=== PATIENT | male | born 1985 | race Caucasian/White ===

== ENCOUNTER 2020-11-17 20:21 | Inpatient (IN) | payer SELFPAY ==
[2020-11-17 20:26] VITALS: BP 134/104; PULSE 98; RESP 18; TEMP 36.7; O2SAT 98; BMI 40.6
[2020-11-17 20:58] LABS: Basophils # 0.1 10^3/uL (0.0-0.1); Basophils % 0.7 %; Eosinophils # 0.3 10^3/uL (0.0-0.8); Eosinophils % 3.5 %; Hematocrit 42.1 % (42.0-52.0); Hemoglobin 14.5 g/dL (11.7-16.6); Lymphocytes # 2.4 10^3/uL (0.8-4.8); Lymphocytes % 30.2 %; Mean Corpuscular HGB Conc 34.4 g/dL (30.0-36.0); Mean Corpuscular Hemoglobin 29.4 pg (28.0-34.0); Mean Corpuscular Volume 85.2 fL (80-94); Mean Platelet Volume 9.1 fL (7.4-10.4); Monocytes # 0.6 10^3/uL (0.2-0.9); Monocytes % 7.1 %; Neutrophils # 4.67 10^3/uL (1.8-7.7); Neutrophils % 58.3 %; Nucleated Red Blood Cells % 0 %; Platelet Count 211 10^3/cmm (130-400); Red Blood Count 4.94 10^6/uL (4.1-5.3)
--- NOTE | 2020-11-17 21:04 | W.ED.PSYCH ---
HPI - Psych General: Chief Complaint: Psychiatric Symptoms Stated Complaint: SI Time Seen by Provider: 11/17/20 20:26 History of Present Illness: HPI Narrative: 35-year-old male presents with suicidal ideation. He states that he was just released from the skilled nursing not long ago. He has been depressed. He started having suicidal thoughts today. His plan was to jump off a bridge. He states that he had 1 beer yesterday, otherwise no substance abuse at all. He is not been ill recently. MD complaint: suicidal ideation and feels depressed Onset (ago): day(s) Duration: constant History of same: Yes Relieving factors: none Exacerbating factors: none Associated psychiatric symptoms: depression and suicidal ideation Associated symptoms: Reports depression and suicidal ideation; Deny homicidal ideation If self harm: admits thoughts of self harm and has plan Review of Systems Const: Denies: fever(s) or chills Eyes: Denies: change in vision ENMT: Denies: odynophagia or sinus pain Card: Denies: chest pain, palpitations or irregular heart rhythm Resp: Denies: dyspnea, productive cough, non-productive cough or wheezing GI: Denies: abdominal pain, nausea or vomiting : Denies: difficulty urinating or hematuria Musc: Denies: neck pain, joint redness or joint warmth Skin/Breast: Denies: rash Neuro: Denies: headache(s), dizziness or vertigo Psych: Reports: depression and suicidal ideation; Denies: homicidal ideation Physical Exam Const: GENERAL APPEARANCE: well developed ORIENTATION/CONSCIOUSNESS: Yes oriented to person, Yes oriented to place and Yes oriented to time HENMT: COMMON NORMALS: normocephalic, external ears normal and Normal external nose present HEAD & SCALP: normocephalic FACE & SINUS: normal facial exam NOSE: Normal external nose present and No nasal discharge present EXTERNAL EAR: Yes external ears normal Eye: COMMON NORMALS: Equal, round and reactive pupils present, EOMs intact bilaterally and conjunctivae normal EYELID: eyelids normal CONJUNCTIVA: Yes conjunctivae normal PUPIL: Yes Equal, round and reactive pupils present Neck/C-Spine: GENERAL: No tracheal deviation Chest: COMMONS NORMALS: normal inspection of the chest CHEST: No tenderness Resp: COMMON NORMALS: clear to auscultation bilaterally EFFORT & INSPECTION: No tachypneic, No respiratory distress, No retractions, No uses accessory muscles and No tracheal deviation AUSCULTATION: clear to auscultation bilaterally, no rhonchi, no wheezes and lung sounds not diminished Cardio: COMMON NORMALS: regular rate and regular rhythm RATE: regular rate RHYTHM: regular rhythm HEART SOUNDS: no murmurs PERIPHERAL PULSES: radial pulses present GI: INSPECTION: No abdominal distension AUSCULTATION: No Hyperactive bowel sounds present and No Hypoactive bowel sounds present PALPATION: No Guarding due to palpation present (GI) and No Rigid due to palpation PERCUSSION: no dullness to percussion and no tympanic to percussion Neuro: SENSORIUM/ORIENTATION: Yes oriented to person, Yes oriented to place and Yes oriented to time Psych: COMMON NORMALS: speech normal APPEARANCE: Yes grossly normal ATTITUDE: Yes calm and Yes Withdrawn affect present ACTIVITY/MOTOR BEHAVIOR: Yes psychomotor slowing SPEECH: Yes normal speech MOOD & AFFECT: Yes depressed mood THOUGHT PROCESS: No confused, not confabulating, no flight of ideas and No Word salad present (speech) THOUGHT CONTENT: Yes Suicidality present ATTENTION/CONCENTRATION: Yes attention grossly intact and Yes concentration grossly intact MEMORY/COGNITION: Yes memory grossly intact and Yes cognition grossly intact INSIGHT: Fair insight present (Psych) JUDGEMENT: Fair judgement present (Psych) Skin: COMMON NORMALS: no rashes or lesions noted GENERAL SKIN EXAM: no rashes or lesions noted MDM - Psych MDM Narrative: Medical decision making narrative: Medically stable. Psychiatry agrees to admission. Patient is willing to come in. Lab Data: Labs: Lab Results 11/17/20 11/17/20 11/17/20 Range/Units 20:50 20:50 21:00 WBC 8.0 (4.0-10.0) 10^3/ uL RBC 4.94 (4.1-5.3) 10^6/u L Hgb 14.5 (11.7-16.6) g/dL Hct 42.1 (42.0-52.0) % MCV 85.2 (80-94) fL MCH 29.4 (28.0-34.0) pg MCHC 34.4 (30.0-36.0) g/dL RDW 12.0 L (12.1-15.1) % Plt Count 211 (130-400) 10^3/c mm MPV 9.1 (7.4-10.4) fL Neut % (Auto) 58.3 % Lymph % (Auto) 30.2 % [place] % (Auto) 7.1 % Eos % (Auto) 3.5 % Baso % (Auto) 0.7 % Neut # (Auto) 4.67 (1.8-7.7) 10^3/u L Lymph # (Auto) 2.4 (0.8-4.8) 10^3/u L [place] # (Auto) 0.6 (0.2-0.9) 10^3/u L Eos # (Auto) 0.3 (0.0-0.8) 10^3/u L Baso # (Auto) 0.1 (0.0-0.1) 10^3/u L Nucleated RBC % (a uto) 0 % Nucleated RBCs # 0.0 /100WBC Sodium 138 (136-145) mmol/L Potassium 4.2 (3.5-5.1) mmol/L Chloride 105 (98-107) mmol/L Carbon Dioxide 23 (22-29) mmol/L Anion Gap 14.2 (5-19) BUN 15 (6-20) mg/dL Creatinine 0.9 (0.7-1.2) mg/dL GFR Calculation 95.5 (90-130) mL/min Glucose 106 (65-115) mg/dL Calculated Osmolal ity 287 (285-295) mOsm/k g Calcium 9.2 (8.5-10.5) mg/dL Total Bilirubin 0.2 (0.15-1.2) mg/dL AST 20 (0-40) U/L ALT 28 (0-41) U/L Alkaline Phosphata se 59 (40-130) IU/L Total Protein 7.3 (6.6-8.7) g/dL Albumin 4.3 (3.5-5.2) g/dL Globulin 3.0 (1.3-4.6) g/dL Urine Color Yellow (Yellow) Urine Appearance Clear (CLEAR) Urine pH 7 (5-7) Ur Specific Gravit y 1.015 (1.005-1.030) Urine Protein Neg (Negative) Urine Glucose (UA) Norm (Normal) Urine Ketones Negative (Negative) Urine Blood Neg (Negative) Urine Nitrate Negative (Negative) Urine Bilirubin Neg (Negative) Urine Urobilinogen Norm (Negative) mg/dL Ur Leukocyte Sherry ase Negative (Negative) Salicylates < 0.3 L (3-10) mg/dL Urine Opiates Scre en (Negative) ng/mL Acetaminophen < 5.0 L (10-30) ug/mL Ur Barbiturates Sc reen (Negative) ng/mL Ur Phencyclidine S crn (Negative) ng/mL Ur Amphetamines Sc reen (Negative) ng/mL U Benzodiazepines Scrn (Negative) ng/mL Urine Cocaine Scre en (Negative) ng/mL U Marijuana (THC) Screen (Negative) ng/mL Ethyl Alcohol < 10 (0-10) mg/dL 11/17/20 Range/Units 21:00 WBC (4.0-10.0) 10^3/ uL RBC (4.1-5.3) 10^6/u L Hgb (11.7-16.6) g/dL Hct (42.0-52.0) % MCV (80-94) fL MCH (28.0-34.0) pg MCHC (30.0-36.0) g/dL RDW (12.1-15.1) % Plt Count (130-400) 10^3/c mm MPV (7.4-10.4) fL Neut % (Auto) % Lymph % (Auto) % [place] % (Auto) % Eos % (Auto) % Baso % (Auto) % Neut # (Auto) (1.8-7.7) 10^3/u L Lymph # (Auto) (0.8-4.8) 10^3/u L [place] # (Auto) (0.2-0.9) 10^3/u L Eos # (Auto) (0.0-0.8) 10^3/u L Baso # (Auto) (0.0-0.1) 10^3/u L Nucleated RBC % (a uto) % Nucleated RBCs # /100WBC Sodium (136-145) mmol/L Potassium (3.5-5.1) mmol/L Chloride (98-107) mmol/L Carbon Dioxide (22-29) mmol/L Anion Gap (5-19) BUN (6-20) mg/dL Creatinine (0.7-1.2) mg/dL GFR Calculation (90-130) mL/min Glucose (65-115) mg/dL Calculated Osmolal ity (285-295) mOsm/k g Calcium (8.5-10.5) mg/dL Total Bilirubin (0.15-1.2) mg/dL AST (0-40) U/L ALT (0-41) U/L Alkaline Phosphata se (40-130) IU/L Total Protein (6.6-8.7) g/dL Albumin (3.5-5.2) g/dL Globulin (1.3-4.6) g/dL Urine Color (Yellow) Urine Appearance (CLEAR) Urine pH (5-7) Ur Specific Gravit y (1.005-1.030) Urine Protein (Negative) Urine Glucose (UA) (Normal) Urine Ketones (Negative) Urine Blood (Negative) Urine Nitrate (Negative) Urine Bilirubin (Negative) Urine Urobilinogen (Negative) mg/dL Ur Leukocyte Sherry ase (Negative) Salicylates (3-10) mg/dL Urine Opiates Scre en Negative (Negative) ng/mL Acetaminophen (10-30) ug/mL Ur Barbiturates Sc reen Negative (Negative) ng/mL Ur Phencyclidine S crn Negative (Negative) ng/mL Ur Amphetamines Sc reen Negative (Negative) ng/mL U Benzodiazepines Scrn Negative (Negative) ng/mL Urine Cocaine Scre en Negative (Negative) ng/mL U Marijuana (THC) Screen Negative (Negative) ng/mL Ethyl Alcohol (0-10) mg/dL Discharge Plan Discharge Patient Disposition: Admitted As Inpatient Admit Provider: Nasir Dexter Clinical Impression: Suicidal ideation Condition: Stable Coding Level of Care Code ED Invasive Physician for Aby 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
[2020-11-17 21:05] LABS: Add Urine Microscopic? NO
[2020-11-17 21:13] LABS: Urine Appearance Clear (CLEAR); Urine Color Yellow (Yellow); pH Urine 7 (5-7)
[2020-11-17 21:14] LABS: Bilirubin Urine Neg (Negative); Blood Urine Neg (Negative); Glucose Urine UA Norm (Normal); Ketones Urine Negative (Negative); Leukocyte Esterase Urine Negative (Negative); Nitrate Urine Negative (Negative); Protein Urine Neg (Negative); Specific Gravity, Urine 1.015 (1.005-1.030); Urobilinogen Urine Norm (Negative)
[2020-11-17 21:16] LABS: Amphetamines Screen Urine Negative (Negative); Barbiturates Screen Urine Negative (Negative); Benzodiazepines Screen Urine Negative (Negative); Cocaine Screen Urine Negative (Negative); Opiate Screen Urine Negative (Negative); PCP Screen Urine Negative (Negative); THC Screen Urine Negative (Negative)
[2020-11-17 21:19] LABS: Alanine Aminotransferase 28 U/L (0-41); Albumin Level 4.3 g/dL (3.5-5.2); Alkaline Phosphatase 59 IU/L (40-130); Anion Gap 14.2 (5-19); Aspartate Amino Transferase 20 U/L (0-40); Blood Urea Nitrogen 15 mg/dL (6-20); Calcium 9.2 mg/dL (8.5-10.5); Carbon Dioxide 23 mmol/L (22-29); Chloride 105 mmol/L (98-107); Glomerular Filtration Rate 95.5 mL/min (90-130); Glucose 106 mg/dL (65-115); Osmolality Calculated 287 mOsm/kg (285-295); Potassium 4.2 mmol/L (3.5-5.1); Sodium 138 mmol/L (136-145); Total Bilirubin 0.2 mg/dL (0.15-1.2); Total Protein 7.3 g/dL (6.6-8.7)
[2020-11-17 21:34] LABS: Acetaminophen < 5.0 ug/mL (10-30); Salicylate < 0.3 mg/dL (3-10)
[2020-11-17 21:35] LABS: Alcohol Level < 10 mg/dL (0-10)
--- NOTE | 2020-11-17 22:34 | PC.NURSE ---
1:1 sitter at bedside.
[2020-11-17 23:12] VITALS: BP 143/92; PULSE 89; RESP 17; TEMP 36.8; O2SAT 98
[2020-11-17 23:53] VITALS: BP 158/121; PULSE 99; RESP 21; TEMP 36.6; O2SAT 96
[2020-11-18] MEDS: hyDROXYzine 25 mg Capsule 50 MG PO ×2 (00:16→21:19)
[2020-11-18] MEDS: trazodone 50 mg Tablet PO (00:16)
[2020-11-18 06:00] VITALS: BP 119/73; PULSE 81; RESP 16; TEMP 36.7; O2SAT 95
[2020-11-18 06:50] LABS: Glucose Point of Care 100 mg/dL (70-110)
[2020-11-18] MEDS: hydroCHLOROthiazide 25 mg Tablet 12.5 MG PO (08:04)
--- NOTE | 2020-11-18 08:10 | PC.NURSE ---
INFLUENZA VACCINE 1 SINGLE DOSE, 0.5 ML GIVEN IM IN RIGHT DELTOID. PT EDUCATED ON MED GIVEN & VERBALIZED UNDERSTANDING. WILL CONT TO MONITOR INJECTION SITE FOR ANY REDNESS, SWELLING OR IRRITATION. LOT [id number] EXP 05/28/21
[2020-11-18 14:00] VITALS: BP 141/98; PULSE 91; RESP 20; TEMP 36.6; O2SAT 96
--- NOTE | 2020-11-18 16:43 | PM.NHP ---
Providers/Chief Complaint Admitting Physician: Nasir Dexter MD Chief Complaint: SI HPI NPU History of Present Illness Wicho Lugo is a 35 year old male who presented to the emergency department with the following report: Chief Complaint: Psychiatric Symptoms Stated Complaint: SI Time Seen by Provider: 11/17/20 20:26 History of Present Illness: HPI Narrative: 35-year-old male presents with suicidal ideation. He states that [facility] ago. He has been depressed. He started having suicidal thoughts today. His plan was to jump off a bridge. He states that he had 1 beer yesterday, otherwise no substance abuse at all. He is not been ill recently. MD complaint: suicidal ideation and feels depressed Onset (ago): day(s) Duration: constant History of same: Yes Relieving factors: none Exacerbating factors: none Associated psychiatric symptoms: depression and suicidal ideation Associated symptoms: Reports depression and suicidal ideation; Deny homicidal ideation If self harm: admits thoughts of self harm and has plan. He was admitted to the neuropsychiatric unit for definitive treatment of those issues. He reports that he just got out of correction earlier this month and then he returned to nothing remaining in his life and all of his supports being gone. He acknowledges that he is a risk offender. And reports that that issue has become a problematic theme in his desire to start over. 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 However he reports that nobody wants to hire somebody that has his history. He reports that in correction he was in therapy and was taking medication. It is unclear whether he is resume the therapy part as of yet. He does however report significant suicidal thinking as he feels like there is almost no reason to go on. He reports that he has significant losses both literally with one child earlier and figuratively and that he is not able to see other children. We discussed the risk benefits and alternatives of initiating an antidepressant. And he understood and agreed to proceed as is documented in this note. He had wanted me to review his chart as the only #medications he had in the past. He reports some of been helpful and others have not and he does not want to waste this time. He agreed to consider starting Entresto or other medication in the morning after that review. He is currently taking prazosin and trazodone and those medications have been continued. We reviewed his 2016 [facility] [place] [place] inpatient evaluation and an excerpt is included for context. He reports that not much is changed other than the going to [facility] and now being out. Per his 2016 [facility] inpatient psychiatric eval: DATE OF SERVICE: 07/07/2016 DATE OF DICTATION: 07/08/2016 CHIEF COMPLAINT: Suicidal thoughts. HISTORY OF PRESENT ILLNESS: The patient reported that he has been feeling suicidal with a plan to drive a car at 100 per hour into a brick wall or off a bridge. He has been increasingly stressed lately. He has been feeling suicidal for the past week due to several situational stressors, including losing custody of his child and his splitting-up 2ith his . He has been for 7 years. The patient reported that he has lost several family members through days. He has been increasingly distressed of as a result. The patient reported that he has a diagnosis of posttraumatic stress disorder. He has mentioned a dysfunctional childhood, growing up in foster care. The patient reported that he has been seeing Larissa Bearden until a year ago. He has been noncompliant to his followups. He has seen Larissa Bearden in May 2015. He was treated for diagnosis of major depressive disorder, severe, recurrent, post-traumatic stress disorder and mild intellectual disability. He has been treated with Wellbutrin, which he has been taking up to 450 milligrams daily. The patient mentioned the Wellbutrin was not helpful. He has significant hypertension, for which he has been also taking Catapres. The patient denied any auditory or visual hallucination. He has mentioned that he has been increasingly angry with significant mood lability. ALLERGIES: Amoxicillin/clavulanic acid/Augmentin. REVIEW OF SYSTEMS: Negative, except what was described in the History Of Present Illness. PAST PSYCHIATRIC HISTORY: Previous hospitalization denied, but has been seen at the Outpatient Services in the past. He was tried on antidepressant medications for worsening depression. Documents reviewed indicate that he had attempted suicide years ago using a firearm in 1997. SOCIAL HISTORY: He grew up in foster care. Dysfunctional childhood. The patient mentioned that he is but currently he is split up with his . She told me to pack up my bag and leave . The patient reported that he has 3 children. He is on [employer] income. The patient has graduated high school and has been attending college. He has a year of college. The patient is currently homeless. SUBSTANCE ABUSE HISTORY: He reported smoking marijuana here and there. He denied any other illicit substance use. FAMILY HISTORY: He reported that his mother has significant substance use. He denied a family history of psychiatric illness. PAST MEDICAL HISTORY: Hypertension. Bronchitis. Meds NPU Home Medications Medication Instructions Recorded Confirmed Last Taken Type hydrochlorothiazide 12.5 mg PO DAILY 11/18/20 11/18/20 Unknown History hydroxyzine pamoate 50 mg PO BEDTIME 11/18/20 11/18/20 Unknown History prazosin 2 mg PO BEDTIME 11/18/20 11/18/20 Unknown History trazodone 100 mg PO BEDTIME 11/18/20 11/18/20 Unknown History Allergies Allergy/AdvReac Type Severity Reaction Status Date / Time amoxicillin Allergy ALGY-Hives Verified 11/17/20 20:25 Mental Status Exam MSE Comments: This is an obese male with adequate grooming and eye contact in hospital scrubs. No abnormal movements except for psychomotor retardation. Cooperative with exam in mild distress. Speech was normal rate and volume. Mood described as depressed, affect congruent. Thought process organized. Thought content: Patient denied any suicidal or homicidal ideation, there were no delusions reported or noted, he denied any auditory or visual hallucinations. Attention and concentration were intact and memory appeared reliable but none were formally tested. He is alert and oriented x3. Insight and judgment are fair, impulse control is limited. Vitals/I&O/Wt Last Vital Signs Temp 97.8 F 11/18/20 14:00 Pulse 91 11/18/20 14:00 Resp 20 H 11/18/20 14:00 BP 141/98 11/18/20 14:00 Pulse Ox 96 11/18/20 14:00 Weight last 48 hrs Weight 147.418 kg Data NPU : 11/17/20 20:50 11/17/20 20:50 A&P Assessment and plan (1) Depression: Status: Acute (2) Suicidal ideation: Status: Acute (3) PTSD (post-traumatic stress disorder): Status: Acute Additional A&P Information This is a 35-year-old white male with a long history of trauma and depression with recent suicidal ideation as he recently got out of correction and is dealing with a lot of real psychosocial challenges that do not necessarily have easy solutions. 1. Continue current medication. We will explore starting an antidepressant in the morning. After chart review. 2. Continue every 15 minute checks for safety. 3. Encourage individual, group and milieu therapy. 4. Work with treatment team to determine what kind of resources exist for someone in his situation. There is a reasonable likelihood that we will need to resources a larger city in the area to find resources to assist him. Involuntary Hold Information 96 Hour Hold: 96 Hour Involuntary Admission: No Attestations NPU Medical Necessity Statement*: Inpatient hospitalization is medically necessary and the clinically appropriate intervention at this time. We will monitor medications and make changes as indicated. He will be in the hospital for over 2 midnights. Likely length of stay 4 to 6 days. Coding Level of Care Code Acute Supply Chain Development Manager for Aby Dixon Diagnoses Depression F32.9 Suicidal ideation R45.851 PTSD (post-traumatic stress disorder) F43.10
[2020-11-18] MEDS: prazosin 1 mg Capsule 2 MG PO (21:19)
[2020-11-18 21:20] VITALS: BP 126/89; PULSE 95; RESP 18; TEMP 36.5; O2SAT 97
[2020-11-18] MEDS: trazodone 100 mg Tablet PO (21:20)
[2020-11-19 06:00] VITALS: BP 113/82; PULSE 105; RESP 18; TEMP 36.7; O2SAT 97
[2020-11-19] MEDS: hydroCHLOROthiazide 25 mg Tablet 12.5 MG PO (08:33)
[2020-11-19 14:00] VITALS: BP 119/78; PULSE 18; RESP 119; TEMP 36.7; O2SAT 96
--- NOTE | 2020-11-19 18:45 | P.PN_ITS ---
Subjective NPU Subjective: Interval history: Koyd presents today reporting that he is feeling okay. Just had a lengthy discussion with the therapist and reports that his options are still few. He started mapping out worst-case scenarios for discharge out of 10 on the currently he is expressing lethality and lack of optimism that there is answer to his circumstances. He has reached out to a couple individuals in entities and is hoping someone will give him a chance. He is eating okay but struggling with his sleep. Mental Status Exam 2 MSE Comments: This is an obese male with adequate grooming and eye contact in hospital scrubs. No abnormal movements except for psychomotor retardation. Cooperative with exam in mild distress. Speech was normal rate and volume. Mood described as depressed, affect congruent. Thought process organized. Thought content: Patient denied any homicidal ideation, but did endorse suicidal ideation and a passive wish, there were no delusions reported or noted, he denied any auditory or visual hallucinations. Attention and concentration were intact and memory appeared reliable but none were formally tested. He is alert and oriented x3. Insight and judgment are fair, impulse control is limited. Vitals/I&O/Wt Last Vital Signs Temp 97.6 F 11/19/20 22:00 Pulse 18 L 11/19/20 22:00 Resp 110 H 11/19/20 22:00 BP 119/77 11/19/20 22:00 Pulse Ox 94 11/19/20 22:00 Data NPU : 11/17/20 20:50 11/17/20 20:50 A&P Additional A&P Information (1) Depression: (2) Suicidal ideation: (3) PTSD (post-traumatic stress disorder): Additional A&P Information This is a 35-year-old white male with a long history of trauma and depression with recent suicidal ideation as he recently got out of shelter and is dealing with a lot of real psychosocial challenges that do not necessarily have easy solutions. 1. Continue current medication. Increase trazodone to 200 mg p.o. nightly. We will start Prozac 20 mg p.o. every morning in the morning. 2. Continue every 15 minute checks for safety. 3. Encourage individual, group and milieu therapy. 4. Work with treatment team to determine what kind of resources exist for someone in his situation. There is a reasonable likelihood that we will need to resources a larger city in the area to find resources to assist him. Involuntary Hold Information 96 Hour Hold: 96 Hour Involuntary Admission: No Attestations NPU Medical Necessity Statement*: Inpatient hospitalization is medically necessary and the clinically appropriate intervention at this time. We will monitor medications and make changes as indicated. Likely length of stay 3-5 days. Coding Level of Care Code Acute Inspection Machine Tender for Aby Dixon
[2020-11-19] MEDS: prazosin 1 mg Capsule 2 MG PO (20:42)
[2020-11-19] MEDS: hyDROXYzine 25 mg Capsule 50 MG PO (20:42)
[2020-11-19] MEDS: trazodone 100 mg Tablet 200 MG PO (20:43)
[2020-11-19 22:00] VITALS: BP 119/77; PULSE 18; RESP 110; TEMP 36.4; O2SAT 94
[2020-11-19] MEDS: trazodone 50 mg Tablet PO (23:35)
--- NOTE | 2020-11-19 23:36 | PC.NURSE ---
Addendum entered by Agatha Haile RN 11/20/20 00:15: Pt is still unable to sleep. He has received 200mg PO trazodone scheduled, and a additional 50mg PO Trazodone. Neither have induced sleep Original Note: trazodone 50mg PO given for inability to sleep. Will continue to monitor
--- NOTE | 2020-11-20 02:26 | PC.NURSE ---
PM Assessment pt reports feeling depressed as he is going thru a divorce at this time. Trazodone was increased this evening to 200mg po. He still has a hard time sleeping. He was given additional 50mg PO Trazodone and still had a hard time going to sleep. Pt v/s are normal. pt denies pain, denies si/hi. denies ah/vh. Pt is cooperative with staff.
[2020-11-20 06:00] VITALS: BP 110/77; PULSE 94; RESP 18; TEMP 36.2; O2SAT 95
[2020-11-20] MEDS: hydroCHLOROthiazide 25 mg Tablet 12.5 MG PO (07:52)
[2020-11-20 12:37] VITALS: BP 116/77; PULSE 97; RESP 18; TEMP 36.4; O2SAT 94
--- NOTE | 2020-11-20 18:43 | P.PN_ITS ---
Subjective NPU Subjective: Interval history: Kody presents today reporting that he is doing okay. He still struggling with sleep and struggling with depression. He is very frustrated about his situation and how there does not seem to be a reasonable solution. He agreed that he would continue looking for alternatives. We discussed the risk benefits and alternatives of starting doxepin tonight for sleep and he endorsed an openness to initiate Prozac in the morning. Mental Status Exam MSE Comments: This is an obese male with adequate grooming and eye contact in hospital scrubs. No abnormal movements except for psychomotor retardation. Cooperative with exam in mild distress. Speech was normal rate and volume. Mood described as depressed, affect congruent. Thought process organized. Th ought content: Patient denied any homicidal ideation, but did endorse suicidal ideation and a passive wish, there were no delusions reported or noted, he denied any auditory or visual hallucinations. Attention and concentration were intact and memory appeared reliable but none were formally tested. He is alert and oriented x3. Insight and judgment are fair, impulse control is limited. Vitals/I&O/Wt Last Vital Signs Temp 97.6 F 11/20/20 21:04 Pulse 97 11/20/20 21:04 Resp 18 11/20/20 21:04 BP 115/77 11/20/20 21:04 Pulse Ox 97 11/20/20 21:04 Data NPU : 11/17/20 20:50 11/17/20 20:50 A&P Additional A&P Information (1) Depression: (2) Suicidal ideation: (3) PTSD (post-traumatic stress disorder): Additional A&P Information This is a 35-year-old white male with a long history of trauma and depression with recent suicidal ideation as he recently got [facility] of [facility] and is dealing with a lot of real psychosocial challenges that do not necessarily have easy solutions. 1. Continue current medication. Doxepin 10 mg p.o. nightly will be added to the trazodone tonight. He finally has agreed to start the antidepressant in the morning. 2. Continue every 15 minute checks for safety. 3. Encourage individual, group and milieu therapy. 4. Work with treatment team to determine what kind of resources exist for darshan eone in his situation. There is a reasonable likelihood that we will need to resources a larger city in the area to find resources to assist him. Involuntary Hold Information 96 Hour Hold: 96 Hour Involuntary Admission: No Attestations NPU Medical Necessity Statement*: Inpatient hospitalization is medically necessary and the clinically appropriate intervention at this time. We will monitor medications and make changes as indicated. Likely length of stay 2-4 days. Coding Level of Care Code Acute Tool And Fixture Repairer for Aby Dixon
[2020-11-20 21:04] VITALS: BP 115/77; PULSE 97; RESP 18; TEMP 36.4; O2SAT 97
[2020-11-20] MEDS: hyDROXYzine 25 mg Capsule 50 MG PO (21:28)
[2020-11-20] MEDS: prazosin 1 mg Capsule 2 MG PO (21:28)
[2020-11-20] MEDS: trazodone 100 mg Tablet 200 MG PO (21:28)
[2020-11-20] MEDS: doxepin 10 mg Capsule PO (21:28)
[2020-11-21 05:57] VITALS: BP 108/69; PULSE 104; RESP 18; TEMP 36.4; O2SAT 95
--- NOTE | 2020-11-21 08:08 | PC.NURSE ---
REFUSED SCHEDULED [facility] THIS MORNING, PT STATED HE JUST WANTS TO GO
[2020-11-21 13:06] VITALS: BP 107/72; PULSE 94; RESP 18; TEMP 36.3; O2SAT 95
--- NOTE | 2020-11-21 18:46 | P.PN_ITS ---
Subjective NPU Subjective: Interval history: Wicho presents today reporting that his sleep has been horrible still after the addition of the doxepin. No history of taking Seroquel but we discussed the risks, benefits and alternatives of a trial of Seroquel and he understood and agreed to proceed as is documented in this note. He continues to be somewhat frustrated because there do not seem to be any options to be able and he is reporting going to a larger city as a nonstarter for the conversation. We discussed the possibility of some of the calls he is making panning out but discussed the tentative plan beginning of the week. Mental Status Exam MSE Comments: This is an obese male with adequate grooming and eye contact in hospital scrubs. No abnormal movements except for psychomotor retardation. Cooperative with exam in mild distress. Speech was increased rate and volume. Mood described as depressed, affect congruent. Thought process organized. Thought content: Patient denied any homicidal ideation, but did endorse suicidal ideation and a passive wish, there were no delusions reported or noted, he denied any auditory or visual hallucinations. Attention and concentration were intact and memory appeared reliable but none were formally tested. He is alert and oriented x3. Insight and judgment are fair, impulse control is limited. Vitals/I&O/Wt Last Vital Signs Temp 98.4 F 11/21/20 22:00 Pulse 91 11/21/20 22:00 Resp 18 11/21/20 22:00 BP 133/83 11/21/20 22:00 Pulse Ox 98 11/21/20 22:00 Data NPU : 11/17/20 20:50 11/17/20 20:50 A&P Additional A&P Information (1) Depression: (2) Suicidal ideation: (3) PTSD (post-traumatic stress disorder): Additional A&P Information This is a 35-year-old white male with a long history of trauma and depression with recent suicidal ideation as he recently got out of longterm and is dealing with a lot of real psychosocial challenges that do not necessarily have easy solutions. 1. Continue current medication. Start Seroquel 100 mg p.o. nightly and monitor tomorrow if it is too much and we can back down to 50 mg. 2. Continue every 15 minute checks for safety. 3. Encourage individual, group and milieu therapy. 4. Work with treatment team to determine what kind of resources exist for someone in his situation. There is a reasonable likelihood that we will need to resources a larger city in the area to find resources to assist him. Involuntary Hold Information 96 Hour Hold: 96 Hour Involuntary Admission: No Attestations NPU Medical Necessity Statement*: Inpatient hospitalization is medically necessary and the clinically appropriate intervention at this time. We will monitor medications and make changes as indicated. Likely length of stay 2-4 days. Coding Level of Care Code Acute Clinical Laboratory Service Teacher for Aby Dixon
[2020-11-21] MEDS: prazosin 1 mg Capsule 2 MG PO (19:59)
[2020-11-21] MEDS: hyDROXYzine 25 mg Capsule 50 MG PO (19:59)
[2020-11-21] MEDS: trazodone 100 mg Tablet 200 MG PO (20:00)
[2020-11-21] MEDS: fluoxetine 20 mg Capsule PO (20:00)
[2020-11-21] MEDS: doxepin 10 mg Capsule PO (20:08)
[2020-11-21] MEDS: quetiapine 100 mg Tablet PO (20:17)
[2020-11-21] MEDS: OLANZapine 5 mg ODT PO (21:35)
[2020-11-21 22:00] VITALS: BP 133/83; PULSE 91; RESP 18; TEMP 36.9; O2SAT 98
--- NOTE | 2020-11-22 02:08 | PC.NURSE ---
Pt awake Pt has had a difficult time falling asleep even after the addition of Seroquel 100mg PO at bedtime. Onset of sleep took 2 hours and he is awake by 0200. He went to the restroom and is attempting to return to sleep. Will continue to monitor pt ability to sleep.
--- NOTE | 2020-11-22 02:11 | PC.NURSE ---
Pt comments Pt stated that he refused his HCTZ today because every time I take it, I swell up. Nurse explained that this medication is a diuretic meant to decrease swelling. He seemed to understand the teaching. He is upset today with other staff. He stated, I said I just want to lay down and , and no one said anything to me. He is upset that staff did not sit down and have a conversation with him and he wants to feel better. He said, Im going thru so much right now, and no one seems to care. I came here for help, and no one wants to help. They hide at the nurses station, and do not offer me anything to stop my racing thoughts. Pt stated these racing thoughts have gotten worse the last couple days. He said my mind is always going a 100 and never stops. Pt states, I have always had a hard time sleeping and run on about two hours a night. I wish the doctor could help me find something to help me sleep.
--- NOTE | 2020-11-22 05:19 | PC.NURSE ---
Pt sleeping pattern Pt has been asleep since 0200. He was only awake long enough to go to the bathroom. It seems like the seroquel has helped him rest. However, at the onset of sleepiness pt had racing thoughts that would not allow him to lay down. He was given zyprexa Zydis 5mg PO by the med nurse to accomodate his needs. Pt has rested this evening more than in the past couple days of comparison. Pt continues to sleep at this time. Will continue to monitor effectiveness of medication and rest.
[2020-11-22 06:00] VITALS: BP 128/80; PULSE 90; RESP 16; TEMP 37.1; O2SAT 98
[2020-11-22] MEDS: hydroCHLOROthiazide 25 mg Tablet 12.5 MG PO (10:15)
[2020-11-22 14:00] VITALS: BP 120/73; PULSE 89; RESP 18; TEMP 37.1; O2SAT 96
--- NOTE | 2020-11-22 16:40 | P.PN_ITS ---
Subjective NPU Subjective: Interval history: Wicho presented today reporting that the Seroquel was really helpful with his sleep. He reports he slept really well that made him happy. We discussed possibly decreasing the dose but he wanted to see if he adjusted to it the next evening. He denied having any luck today finding someone the allow him to stay. He feels a little down that is Les[place] and this is what his life as come to. He continues to endorse suicidal and para suicidal feelings to staff and in general. We discussed the likely plan for discharge on Wednesday if he has not found options given the fact that with the holiday there is nothing that is going to happen for the next couple days. He denies any side effects from the Prozac that was restarted. Mental Status Exam MSE Comments: This is an obese male with adequate grooming and eye contact in hospital scrubs. No abnormal movements except for psychomotor retardation. Cooperative with exam in mild distress. Speech was decreased rate and volume. Mood described as depressed, affect congruent. Thought process organized. Th ght content: Patient denied any homicidal ideation, but did endorse suicidal ideation and a passive wish, there were no delusions reported or noted, he denied any auditory or visual hallucinations. Attention and concentration were intact and memory appeared reliable but none were formally tested. He is alert and oriented x3. Insight and judgment are fair, impulse control is limited. Vitals/I&O/Wt Last Vital Signs Temp 98.8 F 11/22/20 14:00 Pulse 89 11/22/20 14:00 Resp 18 11/22/20 14:00 BP 120/73 11/22/20 14:00 Pulse Ox 96 11/22/20 14:00 Data NPU : 11/17/20 20:50 11/17/20 20:50 A&P Additional A&P Information (1) Depression: (2) Suicidal ideation: (3) PTSD (post-traumatic stress disorder): Additional A&P Information This is a 35-year-old white male with a long history of trauma and depression with recent suicidal ideation as he [facility] and is dealing with a lot of real psychosocial challenges that do not necessarily have easy solutions. 1. Continue current medication. 2. Continue every 15 minute checks for safety. 3. Encourage individual, group and milieu therapy. 4. Work with treatment team to determine what kind of resources exist for someone in his situation. There is a reasonable likelihood that we will need to resources a larger city in the area to find resources to assist him. Involuntary Hold Information 96 Hour Hold: 96 Hour Involuntary Admission: No Attestations NPU Medical Necessity Statement*: Inpatient hospitalization is medically necessary and the clinically appropriate intervention at this time. We will monitor medications and make changes as indicated. Likely length of stay 2-4 days. Coding Level of Care Code Acute Ethnology Professor for Aby Dixon
[2020-11-22 19:25] VITALS: BP 149/83; PULSE 89; RESP 17; TEMP 36.7; O2SAT 95
--- NOTE | 2020-11-22 19:42 | PC.NURSE ---
APPEARS DEPRESSED, UP AD ABIMAEL BACK AND FORTH TO DAY ROOM, DENIES WANTING TO HARM SELF, SAYS HAS BEEN HAVING TROUBLE SLEEPING AT NIGHT EVEN WITH MEDS FOR INSOMNIA.
[2020-11-22] MEDS: fluoxetine 20 mg Capsule PO (21:22)
[2020-11-22] MEDS: trazodone 100 mg Tablet 200 MG PO (21:22)
[2020-11-22] MEDS: doxepin 10 mg Capsule PO (21:23)
[2020-11-22] MEDS: quetiapine 100 mg Tablet PO (21:23)
[2020-11-22] MEDS: hyDROXYzine 25 mg Capsule 50 MG PO (21:23)
[2020-11-22] MEDS: prazosin 1 mg Capsule 2 MG PO (21:23)
[2020-11-23 06:00] VITALS: BP 115/78; PULSE 82; RESP 17; TEMP 36.8; O2SAT 95
[2020-11-23] MEDS: hydroCHLOROthiazide 25 mg Tablet 12.5 MG PO (09:01)
--- NOTE | 2020-11-23 10:40 | P.PN_ITS ---
Subjective NPU Subjective: Interval history: Kody presents today continuing to more or less resist the idea of going to a larger city to obtain an opportunity for assistance. We discussed getting through the holiday weekend and working with the treatment team on Wednesday or Wednesday to get him back to his area and he is hopeful that someone will come through for him. He endorses the fact that he is really not wanting to but he is feeling like if he really does not have any options with the point. He reports he is adjusting well to the medication changes. Eating okay and sleeping better. Mental Status Exam MSE Comments: This is an obese male with adequate grooming and eye contact in hospital scrubs. No abnormal movements except for psychomotor retardation. Cooperative with exam in mild distress. Speech was more normal rate and volume. Mood described as okay I guess, affect congruent. Thought process organized. Thought content: Patient denied any homicidal ideation, and reports that he is less suicidal and more having a passive wish instead, there were no delusions reported or noted, he denied any auditory or visual hallucinations. Attention and concentration were intact and memory appeared reliable but none were formally tested. He is alert and oriented x3. Insight and judgment are fair, impulse control is limited. Vitals/I&O/Wt Last Vital Signs Temp 98.3 F 11/23/20 06:00 Pulse 82 11/23/20 06:00 Resp 17 11/23/20 06:00 BP 115/78 11/23/20 06:00 Pulse Ox 95 11/23/20 06:00 Data NPU : 11/17/20 20:50 11/17/20 20:50 A&P Additional A&P Information (1) Depression: (2) Suicidal ideation: (3) PTSD (post-traumatic stress disorder): Additional A&P Information This is a 35-year-old white male with a long history of trauma and depression with recent suicidal ideation as he recently got out of long term and is dealing with a lot of real psychosocial challenges that do not necessarily have easy s olutions. 1. Continue current medication. 2. Continue every 15 minute checks for safety. 3. Encourage individual, group and milieu therapy. 4. Work with treatment team to determine what kind of resources exist for someone in his situation. There is a reasonable likelihood that we will need to resources a larger city in the area to find resources to assist him. Involuntary Hold Information 96 Hour Hold: 96 Hour Involuntary Admission: No Attestations NPU Medical Necessity Statement*: Inpatient hospitalization is medically necessary and the clinically appropriate intervention at this time. We will monitor medications and make changes as indicated. Likely length of stay 2-3 days. Coding Level of Care Code Acute Director Of Planning for Aby Dixon
[2020-11-23 13:38] VITALS: BP 117/69; PULSE 89; RESP 18; TEMP 36.3; O2SAT 97
[2020-11-23] MEDS: doxepin 10 mg Capsule PO (20:38)
[2020-11-23] MEDS: fluoxetine 20 mg Capsule PO (20:38)
[2020-11-23] MEDS: quetiapine 100 mg Tablet PO (20:38)
[2020-11-23] MEDS: hyDROXYzine 25 mg Capsule 50 MG PO (20:38)
[2020-11-23] MEDS: prazosin 1 mg Capsule 2 MG PO (20:38)
[2020-11-23] MEDS: trazodone 100 mg Tablet 200 MG PO (20:55)
[2020-11-23 21:25] VITALS: BP 149/95; PULSE 92; RESP 19; TEMP 37.1; O2SAT 94
[2020-11-24 06:00] VITALS: BP 127/85; PULSE 84; RESP 16; TEMP 36.9; O2SAT 94; BMI 40.6
[2020-11-24] MEDS: hydroCHLOROthiazide 25 mg Tablet 12.5 MG PO (08:09)
[2020-11-24 13:41] VITALS: BP 136/89; PULSE 97; RESP 18; TEMP 36.7
--- NOTE | 2020-11-24 17:59 | PM.NPN ---
Subjective NPU Subjective: Interval history: Wicho presents today reporting that he is feeling a little better. He is tolerating the medication and has been able to sleep more soundly. He has not been able to get a hold of anyone to secure safe intermediate but he reports that he is feeling a little better each day as far as his mood and how he is feeling otherwise. We discussed the plan for discharge in the next 48 hours. Mental Status Exam MSE Comments: This is an obese male with adequate grooming and eye contact in hospital scrubs. No abnormal movements except for improving psychomotor retardation. Cooperative with exam in mild distress. Speech was more normal rate and volume. Mood described as doing the best that I can, affect congruent. Thought process organized. Thought content: Patient denied any homicidal ideation, and reports that he is less suicidal and more having a passive wish instead, there were no delusions reported or noted, he denied any auditory or visual hallucinations. Attention and concentration were intact and memory appeared reliable but none were formally tested. He is alert and oriented x3. Insight and judgment are fair, impulse control is limited. Vitals/I&O/Wt Last Vital Signs Temp 98.1 F 11/24/20 13:41 Pulse 97 11/24/20 13:41 Resp 18 11/24/20 13:41 BP 136/89 11/24/20 13:41 Pulse Ox 94 11/24/20 06:00 Weight last 48 hrs Weight 147.418 kg Data NPU : 11/17/20 20:50 11/17/20 20:50 A&P Additional A&P Information (1) Depression: (2) Suicidal ideation: (3) PTSD (post-traumatic stress disorder): Additional A&P Information This is a 35-year-old white male with a long history of trauma and depression with recent suicidal ideation as he recently got out of [facility] and is dealing with a lot of real psychosocial challenges that do not necessarily have easy solutions. 1. Continue current medication. 2. Continue every 15 minute checks for safety. 3. Encourage individual, group and milieu therapy. 4. Work with treatment team to determine what kind of resources exist for someone in his situation. There is a reasonable likelihood that we will need to resources a larger city in the area to find resources to assist him. Involuntary Hold Information 96 Hour Hold: 96 Hour Involuntary Admission: No Attestations NPU Medical Necessity Statement*: Inpatient hospitalization is medically necessary and the clinically appropriate intervention at this time. We will monitor medications and make changes as indicated. Likely length of stay 1-2 days. Tentative plan for Wednesday forest and conservation worker. Coding Level of Care Code Acute House Officer for Aby Dixon
[2020-11-24] MEDS: magnesium hydroxide 30 mL UDC PO (18:35)
--- NOTE | 2020-11-24 18:35 | PC.NURSE ---
MILK OF MAGNESIA 30 ML GIVEN PO PER PT C/O CONSTIPATION. WILL CONT TO MONITOR
[2020-11-24 20:09] VITALS: BP 121/83; PULSE 84; RESP 18; TEMP 36.8; O2SAT 93
[2020-11-24] MEDS: trazodone 100 mg Tablet 200 MG PO (20:32)
[2020-11-24] MEDS: hyDROXYzine 25 mg Capsule 50 MG PO (20:32)
[2020-11-24] MEDS: quetiapine 100 mg Tablet PO (20:32)
[2020-11-24] MEDS: prazosin 1 mg Capsule 2 MG PO (20:33)
[2020-11-24] MEDS: OLANZapine 5 mg ODT PO (20:33)
[2020-11-24] MEDS: doxepin 10 mg Capsule PO (20:33)
[2020-11-24] MEDS: fluoxetine 20 mg Capsule PO (20:33)
[2020-11-25 06:00] VITALS: BP 113/73; PULSE 89; RESP 15; TEMP 37.1; O2SAT 91
[2020-11-25 13:37] VITALS: BP 133/85; PULSE 93; RESP 18; TEMP 36.7; O2SAT 96
[2020-11-25 20:19] VITALS: BP 150/85; PULSE 100; RESP 17; TEMP 37.2; O2SAT 94
--- NOTE | 2020-11-25 20:25 | PM.NPN ---
Subjective NPU Subjective: Interval history: Wicho presents today reporting that he is having no success in finding an alternative and at this point is not willing to consider a big city departure to find greater resources secondary to his children and other logistical issues. We discussed the possibility of leaving the area just for a couple months while it is cold to get his footing back and then returning which he seems somewhat resistant to. We discussed the fact that at this point we have exhausted our options and given his unwillingness to go to a feasible solution a bigger city we will tentatively plan for discharge in the morning. Mental Status Exam MSE Comments: This is an obese male with adequate grooming and eye contact in hospital scrubs. No abnormal movements except for improving psychomotor retardation. Cooperative with exam in mild distress. Speech was more normal rate and volume. Mood described as a little frustrated, affect congruent. Thought process organized. Thought content: Patient denied any homicidal ideation and deyanira homicidal ideation but still having a passive wish, there were no delusions reported or noted, he denied any auditory or visual hallucinations. Attention and concentration were intact and memory appeared reliable but none were formally tested. He is alert and oriented x3. Insight and judgment are fair, impulse control is limited. Vitals/I&O/Wt Last Vital Signs Temp 99.0 F 11/25/20 20:19 Pulse 100 11/25/20 20:19 Resp 17 11/25/20 20:19 BP 150/85 11/25/20 20:19 Pulse Ox 94 11/25/20 20:19 Data NPU : 11/17/20 20:50 11/17/20 20:50 A&P Additional A&P Information (1) Depression: (2) Suicidal ideation: (3) PTSD (post-traumatic stress disorder): Additional A&P Information This is a 35-year-old white male with a long history of trauma and depression with recent suicidal ideation as he recently got out of skilled nursing and is dealing with a lot of real psychosocial challenges that do not necessarily have easy solutions. 1. Continue current medication. Increase Seroquel to 200 mg p.o. nightly. 2. Continue every 15 minute checks for safety. 3. Encourage individual, group and milieu therapy. 4. Work with treatment team to determine what kind of resources exist for someone in his situation. There is a reasonable likelihood that we will need to resources a larger city in the area to find resources to assist him. Involuntary Hold Information 96 Hour Hold: 96 Hour Involuntary Admission: No Attestations NPU Medical Necessity Statement*: Inpatient hospitalization is medically necessary and the clinically appropriate intervention at this time. We will monitor medications and make changes as indicated. Tentative plan for discharge in the morning. Coding Level of Care Code Acute Stopping Builder for Aby Dixon
[2020-11-25] MEDS: prazosin 1 mg Capsule 2 MG PO (20:42)
[2020-11-25] MEDS: quetiapine 100 mg Tablet PO ×2 (20:42→21:38)
[2020-11-25] MEDS: fluoxetine 20 mg Capsule PO (20:42)
[2020-11-25] MEDS: hyDROXYzine 25 mg Capsule 50 MG PO (20:42)
[2020-11-25] MEDS: doxepin 10 mg Capsule PO (20:43)
[2020-11-25] MEDS: OLANZapine 5 mg ODT PO (20:43)
[2020-11-25] MEDS: trazodone 100 mg Tablet 200 MG PO (20:43)
[2020-11-26 06:00] VITALS: BP 106/57; PULSE 79; RESP 15; TEMP 36.4; O2SAT 96
[2020-11-26] MEDS: hydroCHLOROthiazide 25 mg Tablet 12.5 MG PO (08:16)
[2020-11-26] MEDS: OLANZapine 5 mg ODT PO ×2 (11:05→21:02)
--- NOTE | 2020-11-26 11:08 | PC.NURSE ---
Zyprexa Zydis 5mg PO given for anxiety and racing thoughts. Willl continue to monitor
--- NOTE | 2020-11-26 11:15 | PC.NURSE ---
Addendum entered by Agatha Haile RN 11/26/20 14:38: Pt is resting in his room and reports a decrease in racing thoughts at this time. He is calm, cooperative, and helpful with staff. he is no longer isolating himself in his room at this time. Original Note: SI/Racing thoughts Pt stated, I am having thoughts of stabbing myself. I need a new brain, my thoughts wont stop racing.
--- NOTE | 2020-11-26 12:00 | PM.NPN ---
Subjective NPU Subjective: Interval history: Wicho presents today continuing to be challenged by his circumstances. He continues to report some passive suicidal thoughts however he was able to articulate the fact that one of his main reasons for wanting to stay in the [facility] are his children even though he has limited contact with them. Our continued discussion about him taking what might feel like a step back for the winter so that he is in a position to take some steps forward went unappreciated and he feels like he will figure it out. We discussed the fact that we could no longer keep him in the hospital when we have a feasible approach that is just not to his liking. He is eating okay and sleeping well. Mental Status Exam MSE Comments: This is an obese male with adequate grooming and eye contact in hospital scrubs. No abnormal movements except for improving psychomotor retardation. Cooperative with exam in no acute distress. Speech was more normal rate and volume. Mood described as okay, affect congruent. Thought process organized. Thought content: Patient denied any homicidal ideation or suicidal ideation but still having occasional passive wish, there were no delusions reported or noted, he denied any auditory or visual hallucinations. Attention and concentration were intact and memory appeared reliable but none were formally tested. He is alert and oriented x3. Insight and judgment are fair, impulse control is limited. Vitals/I&O/Wt Last Vital Signs Temp 97.5 F L 11/26/20 06:00 Pulse 79 11/26/20 06:00 Resp 15 11/26/20 06:00 BP 106/57 11/26/20 06:00 Pulse Ox 96 11/26/20 06:00 Data NPU : 11/17/20 20:50 11/17/20 20:50 A&P Additional A&P Information (1) Depression: (2) Suicidal ideation: (3) PTSD (post-traumatic stress disorder): This is a 35-year-old white male with a long history of trauma and depression with recent suicidal ideation as he recently got out of [facility] and is dealing with a lot of real psychosocial challenges that do not necessarily have easy solutions. 1. Continue current medication. 2. Continue every 15 minute checks for safety. 3. Encourage individual, group and milieu therapy. 4. Work with treatment team to determine what kind of resources exist for someone in his situation. There is a reasonable likelihood that we will need to resources a larger city in the area to find resources to assist him. 5. We will discharge in the morning Involuntary Hold Information 96 Hour Hold: 96 Hour Involuntary Admission: No Attestations NPU Medical Necessity Statement*: Inpatient hospitalization is medically necessary and the clinically appropriate intervention at this time. We will monitor medications and make changes as indicated. Tentative plan for discharge in the morning. Coding Level of Care Code Acute Wire Preparation Machine Tender for Aby Dixon
[2020-11-26 14:00] VITALS: BP 127/91; PULSE 93; RESP 20; TEMP 36.7; O2SAT 96
[2020-11-26] MEDS: doxepin 10 mg Capsule PO (21:02)
[2020-11-26] MEDS: trazodone 100 mg Tablet 200 MG PO (21:02)
[2020-11-26] MEDS: hyDROXYzine 25 mg Capsule 50 MG PO (21:02)
[2020-11-26] MEDS: fluoxetine 20 mg Capsule PO (21:02)
[2020-11-26] MEDS: prazosin 1 mg Capsule 2 MG PO (21:02)
[2020-11-26] MEDS: quetiapine 100 mg Tablet 200 MG PO (21:02)
[2020-11-26 22:00] VITALS: BP 141/91; PULSE 64; RESP 18; TEMP 36.8; O2SAT 98
[2020-11-27 06:00] VITALS: BP 100/63; PULSE 75; RESP 16; TEMP 36.7; O2SAT 94
--- NOTE | 2020-11-27 07:15 | P.DS_ITS ---
Diagnoses at Discharge Discharge Diagnosis (1) Depression: Status: Acute (2) Suicidal ideation: Status: Resolved (3) PTSD (post-traumatic stress disorder): Status: Acute Reason for Visit Reason for Visit: SI Brief History: History of Present Illness Wicho Lugo is a 35 year old male who presented to the emergency department with the following report: Chief Complaint: Psychiatric Symptoms Stated Complaint: SI Time Seen by Provider: 11/17/20 20:26 History of Present Illness: HPI Narrative: 35-year-old male presents with suicidal ideation. He states that he was just released from the [facility] not long ago. He has been depressed. He started having suicidal thoughts today. His plan was to jump off a bridge. He states that he had 1 beer yesterday, otherwise no substance abuse at all. He is not been ill recently. MD complaint: suicidal ideation and feels depressed Onset (ago): day(s) Duration: constant History of same: Yes Relieving factors: none Exacerbating factors: none Associated psychiatric symptoms: depression and suicidal ideation Associated symptoms: Reports depression and suicidal ideation; Deny homicidal ideation If self harm: admits thoughts of self harm and has plan. He was admitted to the neuropsychiatric unit for definitive treatment of those issues. He reports that he just got out of care home earlier this month and then he returned to nothing remaining in his life and all of his supports being gone. He acknowledges that he is a risk offender. And reports that that issue has become a problematic theme in his desire to start over. 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 However he reports that nobody wants to hire somebody that has his history. He reports that in care home he was in therapy and was taking medication. It is unclear whether he is resume the therapy part as of yet. He does however report significant suicidal thinking as he feels like there is almost no reason to go on. He reports that he has significant losses both literally with one child earlier and figuratively and that he is not able to see other children. We discussed the risk benefits and alternatives of initiating an antidepressant. And he understood and agreed to proceed as is doc umented in this note. He had wanted me to review his chart as the only #medications he had in the past. He reports some of been helpful and others have not and he does not want to waste this time. He agreed to consider starting Entresto or other medication in the morning after that review. He is currently taking prazosin and trazodone and those medications have been continued. We reviewed his [address] [facility] inpatient evaluation and an excerpt is included for context. He reports that not much is changed other than the going to halfway and now being out. Per his 2016 [facility] inpatient psychiatric eval: DATE OF SERVICE: 07/07/2016 DATE OF DICTATION: 07/08/2016 CHIEF COMPLAINT: Suicidal thoughts. HISTORY OF PRESENT ILLNESS: The patient reported that he has been feeling suici selena with a plan to drive a car at 100 per hour into a brick wall or off a bridge. He has been increasingly stressed lately. He has been feeling suicidal for the past week due to several situational stressors, including losing custody of his child and his splitting-up 2ith his . He has been for 7 years. The patient reported that he has lost several family members through days. He has been increasingly distressed of as a result. The patient reported that he has a diagnosis of posttraumatic stress disorder. He has mentioned a dysfunctional childhood, growing up in foster care. The patient reported that he has been seeing Larissa Bearden until a year ago. He has been noncompliant to his followups. He has seen Larissa Bearden in May 2015. He was treated for diagnosis of major depressive disorder, severe, recurrent, post-traumatic stress disorder and mild intellectual disability. He has been treated with Wellbutrin, which he has been taking up to 450 milligrams daily. The patient mentioned the Wellbutrin was not helpful. He has significant hypertension, for which he has been also taking Catapres. The patient denied any auditory or visual hallucination. He has mentioned that he has been increasingly angry with significant mood lability. ALLERGIES: Amoxicillin/clavulanic acid/Augmentin. REVIEW OF SYSTEMS: Negative, except what was described in the History Of Present Illness. PAST PSYCHIATRIC HISTORY: Previous hospitalization denied, but has been seen at the Outpatient Services in the past. He was tried on antidepressant medications for worsening depression. Documents reviewed indicate that he had attempted suicide years ago using a firearm in 1997. SOCIAL HISTORY: He grew up in foster care. Dysfunctional childhood. The patient mentioned that he is but currently he is split up with his . She told me to pack up my bag and leave . The patient reported that he has 3 children. He is on SSI income. The patient has graduated high school and has been attending college. He has a year of college. The patient is currently homeless. SUBSTANCE ABUSE HISTORY: He reported smoking marijuana here and there. He denied any other illicit substance use. FAMILY HISTORY: He reported that his mother has significant substance use. He denied a family history of psychiatric illness. PAST MEDICAL HISTORY: Hypertension. Bronchitis. Hospital Course Hospital Course Kody presented to the emergency department endorsing suicidal thoughts and needing to be back on medication. He was admitted to the neuropsychiatric unit for definitive treatment of those issues. He minified that he was homeless and unfortunately due to his legal history finding a place in a small town that would take him out of the homeless long-term as problematic as he would not be able to pass the background check. He was started on Prozac and medications to assist his sleep and mood including Seroquel doxepin and trazodone were added and he showed significant improvement. However there was some concerns for malingering behavior related to suicidality that was resistant but seemed to have a lot more to do with his psychosocial circumstances. During the hospitalization, patient had routine laboratory studies which were within normal limits except for few outliers. Additionally he had a general medical evaluation which was also within normal limits and revealed no new acute processes. Discharge Summary: At the time of discharge, lethality and psychosis were absent. Mood and anxiety were well managed. Patient endorsed a plan to avoid all drugs of abuse and follow-up with the aftercare recommendations of the treatment team. Patient was evaluated and deemed to be absent credible lethality, and had achieved the maximum benefit from an inpatient hospitalization, so was discharged. Involuntary Hold Information 96 Hour Hold: 96 Hour Involuntary Admission: No Mental Status Exam MSE Comments: This is an obese male with adequate grooming and eye contact in hospital scrubs. No abnormal movements except for improving psychomotor retardation. Cooperative with exam in no acute distress. Speech was more normal rate and volume. Mood described as better, affect congruent. Thought process organized. Thought content: Patient denied any homicidal ideation or suicidal ideation but still having occasional passive wish, there were no delusions reported or noted, he denied any auditory or visual hallucinations. Attention and concentration were intact and memory appeared reliable but none were formally tested. He is alert and oriented x3. Insight and judgment are fair, impulse control is limited. Discharge Data Vitals: Last Vital Signs Temp 98.0 F 11/27/20 06:00 Pulse 75 11/27/20 06:00 Resp 16 11/27/20 06:00 BP 100/63 11/27/20 06:00 Pulse Ox 94 11/27/20 06:00 Discharge Plan Discharge Patient Disposition: Home Condition: Stable Prescriptions: New doxepin 10 mg Capsule 10 mg PO BEDTIME 30 Days Qty: 30 RF: 1 quetiapine 100 mg Tablet 200 mg PO BEDTIME 30 Days Qty: 60 RF: 1 trazodone 100 mg Tablet 200 mg PO BEDTIME 30 Days Qty: 60 RF: 1 fluoxetine 20 mg Capsule 20 mg PO BEDTIME 30 Days RF: 0 Prozac 20 mg capsule 20 mg PO QPM Qty: 30 RF: 1 Continued hydroxyzine pamoate 50 mg Capsule 50 mg PO BEDTIME 30 Days Qty: 30 RF: 1 hydrochlorothiazide 12.5 mg Capsule 12.5 mg PO DAILY 30 Days Qty: 30 RF: 1 prazosin 2 mg PO BEDTIME 30 Days Qty: 30 RF: 1 Discontinued trazodone 100 mg Tablet 100 mg PO BEDTIME RF: 0 Discharge Orders: Discharge Order (Routine); Ordered 11/27/20 Ordered By: Nasir Dexter Referrals: [facility] [Outside] (The admission paperwork was done without you while you were at the hospital. Staff will contact you about an appointment once your referral has been processed.) Discharge Diet: Regular Discharge Activity: Resume usual activity Patient Instructions: Doxepin (By mouth), Fluoxetine (By mouth), Trazodone (By mouth), Quetiapine (By mouth) Discharge Attestations NPU Time Spent in Discharge Care*: less than 30 min Specific Discharge Activities: Specific discharge activities: educating patient, discussing with director of casework department/social workers/dc planners, documenting/other paperwork and evaluating patient/reviewing data Coding Level of Care Code Acute Restaurant Cashier for Aby Fwkaren Diagnoses Depression F32.9 Suicidal ideation R45.851 PTSD (post-traumatic stress disorder) F43.10
[2020-11-27 07:28] VITALS: BP 100/63; PULSE 75; RESP 16; TEMP 36.7; O2SAT 94
[2020-11-27] MEDS: hydroCHLOROthiazide 25 mg Tablet 12.5 MG PO (07:55)
== END 2020-11-27 12:20 | disposition home or self-care (01) | DRG 881 ==
LOC: ER 20:46 → NP 23:06
PROVIDERS: Admitting Provider Psychiatry & Neurology Psychiatry; Emergency Provider Emergency Medicine; Visit Provider Psychiatry & Neurology Psychiatry
DX: F32.9 Major depressive disorder, single episode, unspecified (principal); R45.851 Suicidal ideations; F43.10 Post-traumatic stress disorder, unspecified
CPT/HCPCS: 12345; 36416; 80053; 80306; 80307; 81003; 82962; 85025; 90471; 90686; 99284

== ENCOUNTER 2021-02-16 15:33 | Emergency (ER) | payer SELFPAY ==
[2021-02-16 16:05] VITALS: BP 165/99; PULSE 118; RESP 18; TEMP 36.3; O2SAT 95; BMI 38.7
--- NOTE | 2021-02-16 16:40 | XRR_ITS ---
PROCEDURE INFORMATION: Exam: XR Left Ankle Exam date and time: 02/16/2021 4:40 PM Age: 35 years old Clinical indication: Injury or trauma; Fall; Blunt trauma; Ankle; Left TECHNIQUE: Imaging protocol: XR Left ankle. Views: 3 or more views. COMPARISON: No relevant prior studies available. FINDINGS: Bones/joints: The small ossified fragment at the lateral side of the ankle on the AP view is unlikely to be acute. Otherwise no acute displaced fracture or dislocation. The joint spaces of the ankle are well maintained. Soft tissues: Mild soft tissue swelling. XR/XR ankle LT min 3V* 43768 IMPRESSION: No acute displaced fracture or dislocation.
[2021-02-16 16:56] VITALS: BP 125/84; PULSE 103; RESP 16; O2SAT 97
--- NOTE | 2021-02-16 17:15 | ED_ITS ---
HPI - Extremity Problem General: Chief complaint: Extremity Injury, Lower Stated complaint: LLE INJURY Time Seen by Provider: 02/16/21 17:06 History of Present Illness: HPI Narrative: Pt is a 35 y/o male who comes to the ED with an injury to left ankle. Injury occurred today just prior to arrival. He was walking in a parking lot and stepped off the curb and twisted left ankle. He rates pain a 7 out of 10. Associated symptoms: Deny chest pain, fever(s) or rash Review of Systems Const: Denies: fever(s), chills or fatigue Eyes: Denies: change in vision or eye discomfort ENMT: Denies: throat pain, odynophagia, nasal discharge or nasal congestion Card: Denies: chest pain, palpitations, edema, swelling of feet/ankles, dyspnea on exertion or orthopnea Resp: Denies: dyspnea, productive cough or non-productive cough GI: Denies: abdominal pain, nausea, vomiting, diarrhea, constipation or hematochezia : Denies: flank pain, difficulty urinating, dysuria or hematuria Musc: Reports: extremity pain (left ankle pain) and extremity swelling (left ankle swelling); Denies: neck pain or back pain Skin/Breast: Denies: rash or new lesions Neuro: Denies: headache(s), numbness in extremities or weakness in extremities Physical Exam Const: COMMON NORMALS: no acute distress, patient oriented x3, healthy appearing and alert GENERAL APPEARANCE: cooperative and comfortable HENMT: COMMON NORMALS: normocephalic HEAD & SCALP: normocephalic MOUTH: Normal oral and palatal mucosa present THROAT: posterior oropharynx normal and uvula midline Neck/C-Spine: COMMON NORMALS: supple GENERAL: Yes normal visual inspection Resp: COMMON NORMALS: normal respiratory effort, No retractions, No use of accessory muscles and clear to auscultation bilaterally AUSCULTATION: clear to auscultation bilaterally Cardio: COMMON NORMALS: regular rate, regular rhythm, S1 normal heart sound present, S2 normal heart sound present, No gallops present (Cardio), No clicks present (Cardio), No murmurs present (Cardio) and Peripheral pulses 2+ throughout RATE: regular rate RHYTHM: regular rhythm HEART SOUNDS: S1 normal heart sound present and S2 normal heart sound present PERIPHERAL PULSES: Peripheral pulses 2+ throughout GI: COMMON NORMALS: Normal to inspection, nondistended, normoactive bowel sounds present, Soft to palpation, non-tender and no masses PALPATION: Yes Soft to palpation : COMMON NORMALS: Yes no CVA tenderness BLADDER/KIDNEY EXAM: Yes no CVA tenderness Back/Pelvis: COMMON NORMALS: no CVA tenderness Extremity: GENERAL: Yes normal exam except as noted LEFT LOWER EXTREMITY: Yes ankle joint Left ankle: Yes inspection (Mild edema but no visible deformity seen.), Yes palpation (Tenderness to palpation over the anterior aspect of the lateral malleolus.), Yes ROM (Limited due to pain) and Yes neurovascular exam (Intact, pedal pulse 2+.) Neuro: COMMON NORMALS: patient oriented x3 and moves all extremities SENSORIUM/ORIENTATION: Yes alert Skin: GENERAL SKIN EXAM: dry skin Course Vital Signs: Vital signs: Vital Signs Temperature 97.4 F L 02/16/21 16:05 Pulse Rate 103 H 02/16/21 16:56 Respiratory Rate 16 02/16/21 16:56 Blood Pressure 125/84 02/16/21 16:56 Pulse Oximetry 97 02/16/21 16:56 MDM - Extremity (Nontraumatic) MDM Narrative: Medical decision making narrative: Patient is a 35-year-old male comes to the ED with left ankle pain and injury. On exam patient's left ankle has some mild edema and tenderness over the lateral malleolus. Neurovascular intact. X-ray of left ankle showed no acute fractures or findings. Patient diagnosed with an ankle sprain and strain and he was discharged home with some crutches and Tristian wrap. Instructed to rest ice and elevate left ankle for the next several days to help with symptoms. Follow-up with PCP in 7 to 10 days for reevaluation. Return ED precautions given. Patient understood agree with plan. Imaging Data^: Xray Ortho: Attestation: I personally reviewed and interpreted this imaging study as follows: Radiologist's impression: [address] [place] [address] XRay Report Signed Patient: Wicho Lugo Unit #: [id number] : 1985 Age/Sex: 35 / M ADM Date: 02/16/21 Loc: ER Room/Bed: Attending Dr: Ordering Provider/Ordering MD: Ashlyn Reyes Date of Service: 02/16/21 Procedure(s): XR ankle LT min 3V* [id number] Accession Number(s): [id number] Report Number: [id number] PROCEDURE INFORMATION: Exam: XR Left Ankle Exam date and time: 02/16/2021 4:40 PM Age: 35 years old Clinical indication: Injury or trauma; Fall; Blunt trauma; Ankle; Left TECHNIQUE: Imaging protocol: XR Left ankle. Views: 3 or more views. COMPARISON: No relevant prior studies available. FINDINGS: Bones/joints: The small ossified fragment at the lateral side of the ankle on the AP view is unlikely to be acute. Otherwise no acute displaced fracture or dislocation. The joint spaces of the ankle are well maintained. Soft tissues: Mild soft tissue swelling. XR/XR ankle LT min 3V* [id number] IMPRESSION: No acute displaced fracture or dislocation. Dictated By: Karri Sampson Signed By: Karri Sampson Signed Date/Time: 02/16/211720 DD/ 19 Discharge Plan Discharge Patient Disposition: Home Clinical Impression: Ankle sprain and strain Condition: Stable Prescriptions: New ibuprofen 800 mg tablet 800 mg PO Q8H PRN (Reason: pain) Qty: 12 RF: 0 No Action quetiapine 200 mg tablet 200 mg PO BEDTIME RF: 0 hydroxyzine pamoate 50 mg capsule 50 mg PO BEDTIME RF: 0 doxepin 10 mg capsule 10 mg PO BEDTIME RF: 0 trazodone 100 mg tablet 100 mg PO BEDTIME RF: 0 hydrochlorothiazide 12.5 mg capsule 12.5 mg PO DAILY RF: 0 fluoxetine 20 mg capsule 20 mg PO BEDTIME RF: 0 Discharge Orders: Discharge ED (Routine); Ordered 02/16/21 Ordered By: Edy Velazquez Discharge Diet: Regular Discharge Activity: Use walker/crutches as instructed Patient Instructions: Ankle Sprain (ED) Activity Restrictions/Additional Instructions: Follow-up with medical provider as directed in 7 to 10 days for reevaluation. Use crutches for the next 2 to 3 days to help with ambulation and limit any weightbearing on left ankle to allow for healing. After 2 to 3 days weight-bear as tolerated. Rest, ice and elevate left ankle to help with swelling and other symptoms. Take medications as prescribed. Return to the ER or your medical provider if condition worsens. Please read and understand discharge instructions. If any questions, please ask. Coding Level of Care Code ED Resident Care Manager Rn for Aby 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
[2021-02-16] MEDS: HYDROcodone-acetaminophen 7.5-325 mg Tablet 1 TAB PO (17:27)
== END 2021-02-16 17:48 | disposition home or self-care (01) ==
PROVIDERS: Emergency Provider Physician Assistant
DX: S93.402A Sprain of unspecified ligament of left ankle, initial encounter (principal); S96.912A Strain of unspecified muscle and tendon at ankle and foot level, left foot, initial encounter; X50.1XXA Overexertion from prolonged static or awkward postures, initial encounter
CPT/HCPCS: 73610; 99283; E0114

== ENCOUNTER 2021-02-24 15:17 | Inpatient (IN) | payer SELFPAY ==
[2021-02-24 15:22] VITALS: BP 148/90; PULSE 114; RESP 18; TEMP 37.1; O2SAT 98; BMI 38.7
--- NOTE | 2021-02-24 15:24 | ED_ITS ---
HPI - Psych General: Chief Complaint: Psychiatric Symptoms Stated Complaint: SI/ PSYCH EVAL Time Seen by Provider: 02/24/21 15:20 History of Present Illness: HPI Narrative: Patient is a 35-year-old male comes to the ED with SI. Patient says for the last couple weeks he has been struggling with suicidal thoughts. He has been depressed lately and says that he has trouble sleeping at night because whenever he closes his eyes sees his brother and daughters timothy. Patient says he stopped taking his meds approximately 1 month ago. He said he has thought about how he would kill himself. States he would jump off a bridge bridge, hanging himself or cut his wrist. He states he does use marijuana and last use was approximately 4 to 5 days ago but denies any other drug use. Denies any alcohol use as well. Endorses some visual hallucinations that he described as dark shadows. Denies any auditory hallucinations. Patient is here to get help and voluntarily wants to go to stress unit. Associated symptoms: Reports visual hallucinations, depression and suicidal ideation; Deny auditory hallucinations or homicidal ideation Review of Systems Const: Denies: fever(s), chills or fatigue Eyes: Denies: change in vision or eye discomfort ENMT: Denies: throat pain, odynophagia, nasal discharge or nasal congestion Card: Denies: chest pain, palpitations, edema, swelling of feet/ankles, dyspnea on exertion or orthopnea Resp: Denies: dyspnea, productive cough or non-productive cough GI: Denies: abdominal pain, nausea, vomiting, diarrhea, constipation or hematochezia : Denies: flank pain, difficulty urinating, dysuria or hematuria Musc: Denies: neck pain, back pain or extremity swelling Skin/Breast: Denies: rash or new lesions Neuro: Denies: headache(s), numbness in extremities or weakness in extremities Psych: Reports: depression, sleeping less, visual hallucinations and suicidal ideation; Denies: auditory hallucinations or homicidal ideation Physical Exam Const: COMMON NORMALS: no acute distress, patient oriented x3 and alert GENERAL APPEARANCE: cooperative and comfortable HENMT: COMMON NORMALS: normocephalic HEAD & SCALP: normocephalic MOUTH: Normal oral and palatal mucosa present THROAT: posterior oropharynx normal and uvula midline Neck/C-Spine: COMMON NORMALS: supple GENERAL: Yes normal visual inspection Resp: COMMON NORMALS: normal respiratory effort, No retractions, No use of accessory muscles and clear to auscultation bilaterally AUSCULTATION: clear to auscultation bilaterally Cardio: COMMON NORMALS: regular rate, regular rhythm, S1 normal heart sound present, S2 normal heart sound present, No gallops present (Cardio), No clicks present (Cardio), No murmurs present (Cardio) and Peripheral pulses 2+ throughout RATE: regular rate RHYTHM: regular rhythm HEART SOUNDS: S1 normal heart sound present and S2 normal heart sound present PERIPHERAL PULSES: Peripheral pulses 2+ throughout GI: COMMON NORMALS: Normal to inspection, nondistended, normoactive bowel sounds present, Soft to palpation, non-tender and no masses PALPATION: Yes Soft to palpation : COMMON NORMALS: Yes no CVA tenderness BLADDER/KIDNEY EXAM: Yes no CVA tenderness Back/Pelvis: COMMON NORMALS: no CVA tenderness Extremity: COMMON NORMALS: normal to inspection Neuro: COMMON NORMALS: patient oriented x3 and moves all extremities SENSORIUM/ORIENTATION: Yes alert Psych: COMMON NORMALS: mental status grossly normal, Normal thought process present, cooperative, speech normal, activity/motor behavior normal and denies homicidal ideation ATTITUDE: Yes calm ACTIVITY/MOTOR BEHAVIOR: Yes appropriate eye contact SPEECH: Yes normal speech THOUGHT PROCESS: Normal thought process present THOUGHT CONTENT: Yes Suicidality present, No Ho micidality present and Yes Hallucination(s) present visual (Dark shadows); not auditory ATTENTION/CONCENTRATION: Yes attention grossly intact and Yes concentration grossly intact MEMORY/COGNITION: Yes memory grossly intact and Yes cognition grossly intact INSIGHT: Fair insight present (Psych) JUDGEMENT: Fair judgement present (Psych) Skin: GENERAL SKIN EXAM: dry skin MDM - Psych MDM Narrative: Medical decision making narrative: Patient is a 35-year-old male comes to the ED with SI. All psych prescreening labs performed and I contacted Dr. Dexter and talked to him About patient case and He accepted admission to NPU. Dr. Gonzalez placed admitting orders. Lab Data: Attestation: I reviewed the patient's lab results. Labs: Lab Results 02/24/21 02/24/21 02/24/21 Range/Units 15:40 15:40 15:50 WBC 11.9 H (4.0-10.0) 10^3/ uL RBC 5.01 (4.1-5.3) 10^6/u L Hgb 14.7 (11.7-16.6) g/dL Hct 44.1 (42.0-52.0) % MCV 88.0 (80-94) fL MCH 29.3 (28.0-34.0) pg MCHC 33.3 (30.0-36.0) g/dL RDW 12.2 (12.1-15.1) % Plt Count 249 (130-400) 10^3/c mm MPV 9.2 (7.4-10.4) fL Neut % (Auto) 66.7 % Lymph % (Auto) 24.1 % [place] % (Auto) 6.4 % Eos % (Auto) 1.9 % Baso % (Auto) 0.5 % Neut # (Auto) 7.96 H (1.8-7.7) 10^3/u L Lymph # (Auto) 2.9 (0.8-4.8) 10^3/u L [place] # (Auto) 0.8 (0.2-0.9) 10^3/u L Eos # (Auto) 0.2 (0.0-0.8) 10^3/u L Baso # (Auto) 0.1 (0.0-0.1) 10^3/u L Nucleated RBC % (a uto) 0 % Nucleated RBCs # 0.0 /100WBC Sodium (136-145) mmol/L Potassium (3.5-5.1) mmol/L Chloride (98-107) mmol/L Carbon Dioxide (22-29) mmol/L Anion Gap (5-19) BUN (6-20) mg/dL Creatinine (0.7-1.2) mg/dL GFR Calculation (90-130) mL/min Glucose (65-115) mg/dL Calculated Osmolal ity (285-295) mOsm/k g Calcium (8.5-10.5) mg/dL Total Bilirubin (0.15-1.2) mg/dL AST (0-40) U/L ALT (0-41) U/L Alkaline Phosphata se (40-130) IU/L Total Protein (6.6-8.7) g/dL Albumin (3.5-5.2) g/dL Globulin (1.3-4.6) g/dL Urine Color Yellow (Yellow) Urine Appearance Clear (CLEAR) Urine pH 8 H (5-7) Ur Specific Gravit y 1.015 (1.005-1.030) Urine Protein Neg (Negative) Urine Glucose (UA) Norm (Normal) Urine Ketones Negative (Negative) Urine Blood Neg (Negative) Urine Nitrate Negative (Negative) Urine Bilirubin Neg (Negative) Urine Urobilinogen Norm (Negative) mg/dL Ur Leukocyte Sherry ase Negative (Negative) Urine RBC None (0-2) /hpf Urine WBC None (0-5) /hpf Ur Squamous Epith Cells None (0-5) /hpf Amorphous Sediment Not Reportable Urine Bacteria Trace (NONE) /hpf Urine Mucus Trace /hpf Salicylates (3-10) mg/dL Urine Opiates Scre en Negative (Negative) ng/mL Acetaminophen (10-30) ug/mL Ur Barbiturates Sc reen Negative (Negative) ng/mL Ur Phencyclidine S crn Negative (Negative) ng/mL Ur Amphetamines Sc reen Negative (Negative) ng/mL U Benzodiazepines Scrn Negative (Negative) ng/mL Urine Cocaine Scre en Negative (Negative) ng/mL U Marijuana (THC) Screen Positive H (Negative) ng/mL 02/24/21 Range/Units 15:50 WBC (4.0-10.0) 10^3/ uL RBC (4.1-5.3) 10^6/u L Hgb (11.7-16.6) g/dL Hct (42.0-52.0) % MCV (80-94) fL MCH (28.0-34.0) pg MCHC (30.0-36.0) g/dL RDW (12.1-15.1) % Plt Count (130-400) 10^3/c mm MPV (7.4-10.4) fL Neut % (Auto) % Lymph % (Auto) % [place] % (Auto) % Eos % (Auto) % Baso % (Auto) % Neut # (Auto) (1.8-7.7) 10^3/u L Lymph # (Auto) (0.8-4.8) 10^3/u L [place] # (Auto) (0.2-0.9) 10^3/u L Eos # (Auto) (0.0-0.8) 10^3/u L Baso # (Auto) (0.0-0.1) 10^3/u L Nucleated RBC % (a uto) % Nucleated RBCs # /100WBC Sodium 140 (136-145) mmol/L Potassium 4.2 (3.5-5.1) mmol/L Chloride 104 (98-107) mmol/L Carbon Dioxide 25 (22-29) mmol/L Anion Gap 15.2 (5-19) BUN 10 (6-20) mg/dL Creatinine 0.9 (0.7-1.2) mg/dL GFR Calculation 95.5 (90-130) mL/min Glucose 94 (65-115) mg/dL Calculated Osmolal ity 289 (285-295) mOsm/k g Calcium 9.2 (8.5-10.5) mg/dL Total Bilirubin 0.2 (0.15-1.2) mg/dL AST 18 (0-40) U/L ALT 22 (0-41) U/L Alkaline Phosphata se 66 (40-130) IU/L Total Protein 7.7 (6.6-8.7) g/dL Albumin 4.3 (3.5-5.2) g/dL Globulin 3.4 (1.3-4.6) g/dL Urine Color (Yellow) Urine Appearance (CLEAR) Urine pH (5-7) Ur Specific Gravit y (1.005-1.030) Urine Protein (Negative) Urine Glucose (UA) (Normal) Urine Ketones (Negative) Urine Blood (Negative) Urine Nitrate (Negative) Urine Bilirubin (Negative) Urine Urobilinogen (Negative) mg/dL Ur Leukocyte Sherry ase (Negative) Urine RBC (0-2) /hpf Urine WBC (0-5) /hpf Ur Squamous Epith Cells (0-5) /hpf Amorphous Sediment Urine Bacteria (NONE) /hpf Urine Mucus /hpf Salicylates < 0.3 L (3-10) mg/dL Urine Opiates Scre en (Negative) ng/mL Acetaminophen < 5.0 L (10-30) ug/mL Ur Barbiturates Sc reen (Negative) ng/mL Ur Phencyclidine S crn (Negative) ng/mL Ur Amphetamines Sc reen (Negative) ng/mL U Benzodiazepines Scrn (Negative) ng/mL Urine Cocaine Scre en (Negative) ng/mL U Marijuana (THC) Screen (Negative) ng/mL Discharge Plan Discharge Patient Disposition: Admitted As Inpatient Admit Provider: Nasir Dexter Condition: Stable Coding Level of Care Code ED Accounting File Clerk for Josephg 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
[2021-02-24 16:14] LABS: Basophils # 0.1 10^3/uL (0.0-0.1); Basophils % 0.5 %; Eosinophils # 0.2 10^3/uL (0.0-0.8); Eosinophils % 1.9 %; Hematocrit 44.1 % (42.0-52.0); Hemoglobin 14.7 g/dL (11.7-16.6); Lymphocytes # 2.9 10^3/uL (0.8-4.8); Lymphocytes % 24.1 %; Mean Corpuscular HGB Conc 33.3 g/dL (30.0-36.0); Mean Corpuscular Hemoglobin 29.3 pg (28.0-34.0); Mean Platelet Volume 9.2 fL (7.4-10.4); Monocytes # 0.8 10^3/uL (0.2-0.9); Monocytes % 6.4 %; Neutrophils # 7.96 10^3/uL (1.8-7.7); Neutrophils % 66.7 %; Nucleated Red Blood Cells % 0 %; Platelet Count 249 10^3/cmm (130-400); Red Blood Count 5.01 10^6/uL (4.1-5.3); Red Cell Distribution Width 12.2 % (12.1-15.1); White Blood Count 11.9 10^3/uL (4.0-10.0)
[2021-02-24 16:22] LABS: Alanine Aminotransferase 22 U/L (0-41); Albumin Level 4.3 g/dL (3.5-5.2); Alkaline Phosphatase 66 IU/L (40-130); Anion Gap 15.2 (5-19); Aspartate Amino Transferase 18 U/L (0-40); Blood Urea Nitrogen 10 mg/dL (6-20); Calcium 9.2 mg/dL (8.5-10.5); Carbon Dioxide 25 mmol/L (22-29); Chloride 104 mmol/L (98-107); Creatinine Clr Calc Pharmacy 171.6411; Globulin 3.4 g/dL (1.3-4.6); Glomerular Filtration Rate 95.5 mL/min (90-130); Glucose 94 mg/dL (65-115); Osmolality Calculated 289 mOsm/kg (285-295); Potassium 4.2 mmol/L (3.5-5.1); Sodium 140 mmol/L (136-145); Total Bilirubin 0.2 mg/dL (0.15-1.2); Total Protein 7.7 g/dL (6.6-8.7)
[2021-02-24 16:23] LABS: Acetaminophen < 5.0 ug/mL (10-30); Salicylate < 0.3 mg/dL (3-10)
[2021-02-24 16:27] LABS: Amphetamines Screen Urine Negative (Negative); Barbiturates Screen Urine Negative (Negative); Benzodiazepines Screen Urine Negative (Negative); Cocaine Screen Urine Negative (Negative); Opiate Screen Urine Negative (Negative); PCP Screen Urine Negative (Negative); Specific Gravity, Urine 1.015 (1.005-1.030); THC Screen Urine Positive (Negative); Urine Appearance Clear (CLEAR); Urine Color Yellow (Yellow); pH Urine 8 (5-7)
[2021-02-24 16:28] LABS: Add Urine Culture? No; Bacteria Urine TRACE /hpf; Bilirubin Urine Neg (Negative); Blood Urine Neg (Negative); Glucose Urine UA Norm (Normal); Ketones Urine Negative (Negative); Leukocyte Esterase Urine Negative (Negative); Mucus Urine TRACE /hpf; Nitrate Urine Negative (Negative); Protein Urine Neg (Negative); Urobilinogen Urine Norm (Negative)
[2021-02-24 16:49] VITALS: RESP 18
[2021-02-24 17:33] VITALS: RESP 18
[2021-02-24 17:59] VITALS: BP 148/105; PULSE 113; RESP 20; TEMP 36.5; O2SAT 98
[2021-02-24] MEDS: ibuprofen 600 mg Tablet PO (18:09)
[2021-02-24] MEDS: trazodone 50 mg Tablet PO (19:48)
[2021-02-24 19:53] VITALS: BP 141/104; PULSE 123; RESP 17; TEMP 36.8; O2SAT 96
--- NOTE | 2021-02-24 20:09 | PC.NURSE ---
pt came to nurses desk and requested sleep med, trazodone 50mg po given.
[2021-02-25 06:00] VITALS: BP 116/67; PULSE 84; RESP 17; TEMP 36.7; O2SAT 93
[2021-02-25] MEDS: ibuprofen 600 mg Tablet PO ×2 (10:44→18:04)
--- NOTE | 2021-02-25 13:09 | P.HP_ITS ---
Providers/Chief Complaint Admitting Physician: Nasir Dexter MD Chief Complaint: SI/ PSYCH EVAL HPI NPU History of Present Illness Wicho Lugo is a 35 year old male who presented to the ED with the following report: Chief Complaint: Psychiatric Symptoms Stated Complaint: SI/ PSYCH EVAL Time Seen by Provider: 02/24/21 15:20 History of Present Illness: HPI Narrative: Patient is a 35-year-old male comes to the ED with SI. Patient says for the last couple weeks he has been struggling with suicidal thoughts. He has been depressed lately and says that he has trouble sleeping at night because whenever he closes his eyes sees his brother and daughters timothy. Patient says he stopped taking his meds a pproximately 1 month ago. He said he has thought about how he would kill himself. States he would jump off a bridge bridge, hanging himself or cut his wrist. He states he does use marijuana and last use was approximately 4 to 5 days ago but denies any other drug use. Denies any alcohol use as well. Endorses some visual hallucinations that he described as dark shadows. Denies any auditory hallucinations. Patient is here to get help and voluntarily wants to go to stress unit. Associated symptoms: Reports visual hallucinations, depression and suicidal ideation; Deny auditory hallucinations or homicidal ideation. He was admitted to the neuropsychiatric unit for definitive treatment of those issues. Wicho presents today reporting that he did have some periods of success after his discharge in October but reports that he started getting to the point where he was having thoughts that he was fearful he would act on. He reports that there may been some inconsistency with his medication. And that recently he has been more or less thrown out by his significant other which is led to s ome erratic behavior and thinking. He denies things being as bad as when he came last time. Reports that he just needed to get his mind together and make sure that he did not make a stupid decision. He reports that he was not feeling able to contract for safety outside the hospital but also not feeling as bad as he was before. He continues to report that he wants to return to his current situation. He reportedly needs to be in town near his kids reports he wants to return to [place]. We discussed the risk that is alternatives of restarting his medication and he understood and agreed proceed as is documented in this note. An excerpt of his 11/18/2021 inpatient evaluation is included below for context given lack of substantive changes. Per his 11/18/2021 [facility] inpatient psychiatric evaluation: History of Present Illness Wicho Lugo is a 35 year old male who presented to the emergency department with the following report: Chief Complaint: Psychiatric Symptoms Stated Complaint: SI Time Seen by Provider: 11/17/20 20:26 History of Present Illness: HPI Narrative: 35-year-old male presents with suicidal ideation. He states that he was just released from the residential not long ago. He has been depressed. He started having suicidal thoughts today. His plan was to jump off a bridge. He states that he had 1 beer yesterday, otherwise no substance abuse at all. He is not been ill recently. MD complaint: suicidal ideation and feels depressed Onset (ago): day(s) Duration: constant History of same: Yes Relieving factors: none Exacerbating factors: none Associated psychiatric symptoms: depression and suicidal ideation Associated symptoms: Reports depression and suicidal ideation; Deny homicidal ideation If self harm: admits thoughts of self harm and has plan. He was admitted to the neuropsychiatric unit for definitive treatment of those issues. He reports that he just got out of senior care earlier this month and then he returned to nothing remaining in his life and all of his supports being gone. He acknowledges that he is a risk offender. And reports that that issue has become a problematic theme in his desire to start over. 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 However he reports that nobody wants to hire somebody that has his history. He reports that in senior care he was in therapy and was taking medication. It is unclear whether he is resume the therapy part as of yet. He does however report significant suicidal thinking as he feels like there is almost no reason to go on. He reports that he has significant losses both literally with one child earlier and figuratively and that he is not able to see other children. We discussed the risk benefits and alternatives of initiating an antidepressant. And he understood and agreed to proceed as is documented in this note. He had wanted me to review his chart as the only #medications he had in the past. He reports some of been helpful and others have not and he does not want to waste this time. He agreed to consider starting Entresto or other medication in the morning after that review. He is currently taking prazosin and trazodone and those medications have been continued. We [place] [facility] [place] and an excerpt is included for context. He reports that not much is changed other than the going to [facility] and now being out. Per his 2016 [facility] inpatient psychiatric eval: DATE OF SERVICE: 07/07/2016 DATE OF DICTATION: 07/08/2016 CHIEF COMPLAINT: Suicidal thoughts. HISTORY OF PRESENT ILLNESS: The patient reported that he has been feeling suicidal with a plan to drive a car at 100 per hour into a brick wall or off a bridge. He has been increasingly stressed lately. He has been feeling suicidal for the past week due to several situational stressors, including losing custody of his child and his splitting-up 2ith his . He has been for 7 years. The patient reported that he has lost several family members through days. He has been increasingly distressed of as a result. The patient reported that he has a diagnosis of posttraumatic stress disorder. He has mentioned a dysfunctional childhood, growing up in foster care. The patient reported that he has been seeing Larissa Bearden until a year ago. He has been noncompliant to his followups. He has seen Larissa Bearden in May 2015. He was treated for diagnosis of major depressive disorder, severe, recurrent, post-traumatic stress disorder and mild intellectual disability. He has been treated with Wellbutrin, which he has been taking up to 450 milligrams daily. The patient mentioned the Wellbutrin was not helpful. He has significant hypertension, for which he has been also taking Catapres. The patient denied any auditory or visual hallucination. He has mentioned that he has been increasingly angry with significant mood lability. ALLERGIES: Amoxicillin/clavulanic acid/Augmentin. REVIEW OF SYSTEMS: Negative, except what was described in the History Of Present Illness. PAST PSYCHIATRIC HISTORY: Previous hospitalization denied, but has been seen at the Outpatient Services in the past. He was tried on antidepressant medications for worsening depression. Documents reviewed indicate that he had attempted suicide years ago using a firearm in 1997. SOCIAL HISTORY: He grew up in foster care. Dysfunctional childhood. The patient mentioned that he is but currently he is split up with his . She told me to pack up my bag and leave . The patient reported that he has 3 children. He is on [employer] income. The patient has graduated high school and has been attending college. He has a year of college. The patient is currently homeless. SUBSTANCE ABUSE HISTORY: He reported smoking marijuana here and there. He denied any other illicit substance use. FAMILY HISTORY: He reported that his mother has significant substance use. He denied a family history of psychiatric illness. PAST MEDICAL HISTORY: Hypertension. Bronchitis. Meds NPU Home Medications Medication Instructions Recorded Confirmed Last Taken Type doxepin 10 mg PO BEDTIME 02/16/21 02/24/21 Unknown History fluoxetine 20 mg PO BEDTIME 02/16/21 02/24/21 Unknown History hydrochlorothiazide 12.5 mg PO DAILY 02/16/21 02/24/21 Unknown History hydroxyzine pamoate 50 mg PO BEDTIME 02/16/21 02/24/21 Unknown History ibuprofen 800 mg PO Q8H PRN #12 tab 02/16/21 02/24/21 Unknown Rx quetiapine 200 mg PO BEDTIME 02/16/21 02/24/21 Unknown History trazodone 200 mg PO BEDTIME 02/16/21 02/25/21 Unknown History prazosin 2 mg PO QPM 02/25/21 02/25/21 Unknown History Allergies Allergy/AdvReac Type Severity Reaction Status Date / Time amoxicillin Allergy ALGY-Hives Verified 02/16/21 16:08 Mental Status Exam MSE Comments: This is an obese white male in hospital scrubs with adequate grooming and eye contact. No abnormal movements except for mild psychomotor retardation. Cooperative with exam in mild distress. Speech was slightly decreased rate and volume. Mood described as not as bad as last time but I was feeling some kind of way yesterday, affect slightly subdued. Thought process organized. Thought content: Patient denied suicidal ideation but endorsed pass patricio wish and denied homicidal ideation, there were no delusions reported or noted, he denied any auditory or visual hallucinations. Attention and concentration intact and memory appeared reliable but none were formally tested. He is alert and oriented x3. Insight and judgment appear fair, and impulse control is limited. Vitals/I&O/Wt Last Vital Signs Temp 98.1 F 02/25/21 06:00 Pulse 84 02/25/21 06:00 Resp 17 02/25/21 06:00 BP 116/67 02/25/21 06:00 Pulse Ox 93 02/25/21 06:00 Weight last 48 hrs Weight 140.614 kg Data NPU : 02/24/21 15:50 02/24/21 15:50 A&P Assessment and plan (1) PTSD (post-traumatic stress disorder): Status: Acute (2) Depression: Status: Acute (3) Suicidal thoughts: Status: Acute (4) Cannabis abuse: Status: Acute Additional A&P Information This is a 35-year-old white male with a long history of addiction and mental he alth issues who presents reporting improvement since October but having some recent issues leading to active suicidality yesterday. 1. Continue current medication. Continue home medications and encourage adherence after discharge. 2. Continue every 15 minute checks for safety. 3. Encourage individual, group and milieu therapies. 4. Encourage sober living treatment after discharge at the highest level of care to which he is willing to commit. Involuntary Hold Information 96 Hour Hold: 96 Hour Involuntary Admission: No Attestations NPU Medical Necessity Statement*: Inpatient hospitalization is medically necessary and the clinically appropriate intervention at this time. We will monitor medications and make changes as indicated. Patient will be in the hospital for over two midnights. Likely length of stay 2-4 days. Coding Level of Care Code Acute Management Associate for Aby Dixon Diagnoses PTSD (post-traumatic stress disorder) F43.10 Depression F32.9 Suicidal thoughts R45.851 Cannabis abuse F12.10
[2021-02-25 13:54] VITALS: BP 128/87; PULSE 94; RESP 17; TEMP 36.7; O2SAT 96
[2021-02-25] MEDS: nicotine 2 mg Gum BUCCAL ×2 (19:17→21:28)
[2021-02-25] MEDS: trazodone 50 mg Tablet PO (19:18)
--- NOTE | 2021-02-25 19:18 | PC.NURSE ---
Pt requested sleep med. Trazodone 50mg po given.
[2021-02-25] MEDS: hyDROXYzine 25 mg Capsule 50 MG PO (21:05)
[2021-02-25] MEDS: doxepin 10 mg Capsule PO (21:05)
[2021-02-25] MEDS: quetiapine 100 mg Tablet 200 MG PO (21:05)
[2021-02-25] MEDS: trazodone 100 mg Tablet 200 MG PO (21:05)
[2021-02-25] MEDS: acetaminophen 325 mg Tablet 650 MG PO (21:05)
[2021-02-25 21:12] VITALS: BP 172/100; PULSE 99; RESP 17; TEMP 36.9; O2SAT 96
[2021-02-25] MEDS: fluoxetine 20 mg Capsule PO (21:29)
--- NOTE | 2021-02-26 04:41 | PC.NURSE ---
:PM ASSESSMENT PT REPORTS FEELING SUICIDAL THIS EVENING, NO PLAN TO HARM SELF, BUT SHOWED NURSE PAST SCARS TRACING MIDLINE OF WRIST TO FOREARM SAYING, a LITTLE CUT HERE, AND IT WOULD BE OVER, SEE I HAVE CUT IN THE PAST. REPORTS INSOMNIA, MED NURSE NOTIFIED, STATES, HE SEES HIS BROTHER AND DAUGHTER WHEN HE CLOSES HIS EYES, SO HE DOES NOT WANT TO SLEEP, IT IS TORMENTING, PT SAID, I REALLY NEED TO GO HOME, SMOKE A BIG BLUNT AND GRAB A CIGARETTE. REPORTS SEEING A SHADOW MAN FIGURE AT TIMES, AND DENIES AH AT THIS TIME. PT COMPLAINS OF ANKLE PAIN, MED NURSE NOTIFIED. PT REQUESTS A DEBORAH WRAP. OFFERED ICE PACK, DENIED
[2021-02-26 06:00] VITALS: BP 136/77; PULSE 78; RESP 15; TEMP 36.4; O2SAT 95
[2021-02-26] MEDS: hydroCHLOROthiazide 25 mg Tablet 12.5 MG PO (08:38)
[2021-02-26] MEDS: nicotine 2 mg Gum BUCCAL ×3 (11:46→20:38)
[2021-02-26] MEDS: ibuprofen 800 mg tablet PO (11:47)
[2021-02-26 14:00] VITALS: BP 135/92; PULSE 99; RESP 20; TEMP 36.6; O2SAT 96
--- NOTE | 2021-02-26 16:27 | PM.NPN ---
Subjective NPU Subjective: Interval history: Willy presents today reporting that he does feel better taking his medications daily but was clear about some of the psychosocial circumstances intervening in his daily adherence. He continues to be focused on staying in [place] where he will be able to maintain a connection with his children versus considering alternatives that would take him out of town for a time but might allow him to truly get back on his feet. He reports he is eating a little better and sleeping fine. We discussed the possibility of discharge tomorrow. Mental Status Exam MSE Comments: This is an obese white male in hospital scrubs with adequate grooming and eye contact. No abnormal movements except for mild psychomotor retardation. Cooperative with exam in mild distress. Speech was slightly decreased rate and volume. Mood described okay, affect slightly subdued. Thought process organized. Thought content: Patient denied suicidal ideation but endorsed resolving passive wish and denied homicidal ideation, there were no delusions reported or noted, he denied any auditory or visual hallucinations. Attention and concentration intact and memory appeared reliable but none were formally tested. He is alert and oriented x3. Insight and judgment appear fair, and impulse control is limited, but improving. Vitals/I&O/Wt Last Vital Signs Temp 97.2 F L 02/26/21 22:00 Pulse 95 02/26/21 22:00 Resp 20 H 02/26/21 14:00 BP 130/84 02/26/21 22:00 Pulse Ox 95 02/26/21 22:00 Data NPU : 02/24/21 15:50 02/24/21 15:50 A&P Additional A&P Information (1) PTSD (post-traumatic stress disorder): (2) Depression: (3) Suicidal thoughts: (4) Cannabis abuse: Additional A&P Information This is a 35-year-old white male with a long history of addiction and mental health issues who presents reporting improvement since October but having some recent issues leading to active suicidality yesterday. 1. Continue current medication. 2. Continue every 15 minute checks for safety. 3. Encourage individual, group and milieu therapies. 4. Encourage sober living treatment after discharge at the highest level of care to which he is willing to commit. Involuntary Hold Information 96 Hour Hold: 96 Hour Involuntary Admission: No Attestations NPU Medical Necessity Statement*: Inpatient hospitalization is medically necessary and the clinically appropriate intervention at this time. We will monitor medications and make changes as indicated. Likely length of stay 1-3 days. Coding Level of Care Code Acute Soil Sort Worker for Aby Dixon
--- NOTE | 2021-02-26 19:34 | P.PN_ITS ---
NPU Therapy Progress Note Therapy Progress Note Date: 02/26/21 Time In: 18:45 Time Out: 19:00 Symptoms Reported: depression Mood: sleepy, depressed, open Progress Note: SHEET METAL DUCT INSTALLER APPRENTICE approached Wicho while resting in bed. He is agreeable to talk. He vents about life issues including employment, financial issues, history of substance abuse, and time spent in group home. He also discusses deeper issues such as trauma from his childhood. Wicho has engaged in therapy services before with [facility] therapist, Bernadette Walden. He states this was very helpful to him at the time; however, when [facility] stopped having a therapist in the [facility], he was unable to have transport to [place] to continue services. Intervention: SHEET METAL DUCT INSTALLER APPRENTICE listened and provided empathy and support. Re-engaging in the [facility] was discussed. Option of EMDR treatment was discussed. Reported Goals Before Discharge: none reported
--- NOTE | 2021-02-26 19:34 | PM.NPTHER ---
NPU Therapy Progress Note Therapy Progress Note Date: 02/26/21 Time In: 18:45 Time Out: 19:00 Symptoms Reported: depression Mood: sleepy, depressed, open Progress Note: SECTION HOUSEKEEPER approached Wicho while resting in bed. He is agreeable to talk. He vents about life issues including employment, financial issues, history of substance abuse, and time spent in assisted. He also discusses deeper issues such as trauma from his childhood. Wicho has engaged in therapy services before with [facility] therapist, Bernadette Walden. He states this was very helpful to him at the time; however, when [facility] stopped having a therapist in the [facility], he was unable to have transport to [place] to continue services. Intervention: SECTION HOUSEKEEPER listened and provided empathy and support. Re-engaging in therapy was discussed. Option of EMDR treatment was discussed. Reported Goals Before Discharge: none reported
[2021-02-26] MEDS: acetaminophen 325 mg Tablet 650 MG PO (20:36)
[2021-02-26] MEDS: prazosin 1 mg Capsule 2 MG PO (20:36)
[2021-02-26] MEDS: hyDROXYzine 25 mg Capsule 50 MG PO (20:37)
[2021-02-26] MEDS: quetiapine 100 mg Tablet 200 MG PO (20:37)
[2021-02-26] MEDS: trazodone 100 mg Tablet 200 MG PO (20:37)
[2021-02-26] MEDS: doxepin 10 mg Capsule PO (20:38)
[2021-02-26] MEDS: fluoxetine 20 mg Capsule PO (20:38)
[2021-02-26 22:00] VITALS: BP 130/84; PULSE 95; TEMP 36.2; O2SAT 95
[2021-02-27] MEDS: acetaminophen 325 mg Tablet 650 MG PO (00:56)
[2021-02-27 05:31] VITALS: BP 115/76; PULSE 67; TEMP 36.3; O2SAT 95
[2021-02-27] MEDS: nicotine 2 mg Gum BUCCAL (11:46)
[2021-02-27 14:00] VITALS: RESP 18
[2021-02-27 17:18] VITALS: BP 115/76; PULSE 67; TEMP 36.3; O2SAT 95
--- NOTE | 2021-02-28 05:35 | P.DS_ITS ---
Diagnoses at Discharge Discharge Diagnosis (1) PTSD (post-traumatic stress disorder): Status: Acute (2) Depression: Status: Acute (3) Suicidal thoughts: Status: Resolved (4) Cannabis abuse: Status: Acute Reason for Visit Reason for Visit: SI/ PSYCH EVAL Brief History: History of Present Illness Wicho Lugo is a 35 year old male who presented to the ED with the following report: Chief Complaint: Psychiatric Symptoms Stated Complaint: SI/ PSYCH EVAL Time Seen by Provider: 02/24/21 15:20 History of Present Illness: HPI Narrative: Patient is a 35-year-old male comes to the ED with SI. Patient says for the last couple weeks he has been struggling with suicidal thoughts. He has been depressed lately and says that he has trouble sleeping at night because whenever he closes his eyes sees his brother and daughters timothy. Patient says he stopped taking his meds approximately 1 month ago. He said he has thought about how he would kill himself. States he would jump off a bridge bridge, hanging himself or cut his wrist. He states he does use marijuana and last use was approximately 4 to 5 days ago but denies any other drug use. Denies any alcohol use as well. Endorses some visual hallucinations that he described as dark shadows. Denies any auditory hallucinations. Patient is here to get help and voluntarily wants to go to stress unit. Associated symptoms: Reports visual hallucinations, depression and suicidal ideation; Deny auditory hallucinations or homicidal ideation. He was admitted to the neuropsychiatric unit for definitive treatment of those issues. Wicho presents today reporting that he did have some periods of success after his discharge in October but reports that he started getting to the point where he was having thoughts that he was fearful he would act on. He reports that there may been some inconsistency with his medication. And that recently he has been more or less thrown out by his significant other which is led to some erratic behavior and thinking. He denies things being as bad as when he came last time. Reports that he just needed to get his mind together and make sure that he did not make a stupid decision. He reports that he was not feeling able to contract for safety outside the hospital but also not feeling as bad as he was before. He continues to report that he wants to return to his current situation. He reportedly needs to be in town near his kids reports he wants to return to [place]. We discussed the risk that is alternatives of restarting his medication and he understood and agreed proceed as is documented in this note. An excerpt of his 11/18/2021 inpatient evaluation is included below for context given lack of substantive changes. Per his 11/18/2021 [facility] inpatient psychiatric evaluation: History of Present Illness Wicho Lugo is a 35 year old male who presented to the emergency department with the following report: Chief Complaint: Psychiatric Symptoms Stated Complaint: SI Time Seen by Provider: 11/17/20 20:26 History of Present Illness: HPI Narrative: 35-year-old male presents with suicidal ideation. He states that he was just [facility] not long ago. He has been depressed. He started having suicidal thoughts today. His plan was to jump off a bridge. He states that he had 1 beer yesterday, otherwise no substance abuse at all. He is not been ill recently. MD complaint: suicidal ideation and feels depressed Onset (ago): day(s) Duration: constant History of same: Yes Relieving factors: none Exacerbating factors: none Associated psychiatric symptoms: depression and suicidal ideation Associated symptoms: Reports depression and suicidal ideation; Deny homicidal ideation If self harm: admits thoughts of self harm and has plan. He was admitted to the neuropsychiatric unit for definitive treatment of those issues. He reports that he just got out of shelter earlier this month and then he returned to nothing remaining in his life and all of his supports being gone. He acknowledges that he is a risk offender. And reports that that issue has become a problematic theme in his desire to start over. 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 However he reports that nobody wants to hire somebody that has his history. He reports that in shelter he was in therapy and was taking medication. It is unclear whether he is resume the therapy part as of yet. He does however report significant suicidal thinking as he feels like there is almost no reason to go on. He reports that he has significant losses both literally with one child earlier and figuratively and that he is not able to see other children. We discussed the risk benefits and alternatives of initiating an antidepressant. And he understood and agreed to proceed as is documented in this note. He had wanted me to review his chart as the only #medications he had in the past. He reports some of been helpful and others have not and he does not want to waste this time. He agreed to consider starting Entresto or other medication in the morning after that review. He is currently taking prazosin and trazodone and those medications have been aliyah nued. We reviewed his 2016 [facility] inpatient evaluation and an excerpt is included for context. He reports that not much is changed other than the going to skilled nursing and now being out. Per his 2016 [facility] inpatient psychiatric eval: DATE OF SERVICE: 07/07/2016 DATE OF DICTATION: 07/08/2016 CHIEF COMPLAINT: Suicidal thoughts. HISTORY OF PRESENT ILLNESS: The patient reported that he has been feeling suicidal with a plan to drive a car at 100 per hour into a brick wall or off a bridge. He has been increasingly stressed lately. He has been feeling suicidal for the past week due to several situational stressors, including losing custody of his child and his splitting-up 2ith his . He has been for 7 years. The patient reported that he has lost several family members through days. He has been increasingly distressed of as a result. The patient reported that he has a diagnosis of posttraumatic stress disorder. He has mentioned a dysfunctional childhood, growing up in foster care. The patient reported that he has been seeing Larissa Bearden until a year ago. He has been noncompliant to his followups. He has seen Larissa Bearden in May 2015. He was treated for diagnosis of major depressive disorder, severe, recurrent, post-traumatic stress disorder and mild intellectual disability. He has been treated with Wellbutrin, which he has been taking up to 450 milligrams daily. The patient mentioned the Wellbutrin was not helpful. He has significant hypertension, for which he has been also taking Catapres. The patient denied any auditory or visual hallucination. He has mentioned that he has been increasingly angry with significant mood lability. ALLERGIES: Amoxicillin/clavulanic acid/Augmentin. REVIEW OF SYSTEMS: Negative, except what was described in the History Of Present Illness. PAST PSYCHIATRIC HISTORY: Previous hospitalization denied, but has been seen at the Outpatient Services in the past. He was tried on antidepressant medications for worsening depression. Documents reviewed indicate that he had attempted suicide years ago using a firearm in 1997. SOCIAL HISTORY: He grew up in foster care. Dysfunctional childhood. The patient mentioned that he is but currently he is split up with his . She told me to pack up my bag and leave . The patient reported that he has 3 children. He is on SSI income. The patient has graduated high school and has been attending college. He has a year of college. The patient is currently homeless. SUBSTANCE ABUSE HISTORY: He reported smoking marijuana here and there. He denied any other illicit substance use. FAMILY HISTORY: He reported that his mother has significant substance use. He denied a family history of psychiatric illness. PAST MEDICAL HISTORY: Hypertension. Bronchitis. Hospital Course Hospital Course Wicho presented to the emergency department endorsing depression, medication nonadherence and inability to contract for safety outside of the hospital. He was admitted to the neuropsychiatric unit for definitive treatment of those issues. On the unit he slowly acclimated to the individual, group and milieu therapies provided. He was clear initially that he does not feel that he was where he was seen last but was very concerned about what he might do. We restarted his medication and he had a positive response and endorsed a plan to continue the medication as prescribed and follow-up with services. He was able to contract for safety outside the hospital at the time of discharge. During the hospitalization, patient had routine laboratory studies which were within normal limits except for few outliers. Additionally there was a general medical evaluation which was also within normal limits and revealed no new acute processes. Discharge Summary: At the time of discharge, lethality and psychosis were denied. Mood and anxiety were well managed. Patient endorsed a plan to avoid all drugs of abuse and follow-up with the aftercare recommendations of the treatment team. Patient was evaluated and deemed to be absent credible lethality, and had achieved the maximum benefit from an inpatient hospitalization, so was discharged. Involuntary Hold Information 96 Hour Hold: 96 Hour Involuntary Admission: No Mental Status Exam MSE Comments: This is an obese white male in hospital scrubs with adequate grooming and eye contact. No abnormal movements. Cooperative with exam in mild distress. Speech was normal rate and volume. Mood described better, affect congruent. Thought process organized. Thought content: Patient denied suicidal ideation or homicidal ideation, there were no delusions reported or noted, he denied any auditory or visual hallucinations. Attention and concentration intact and memory appeared reliable but none were formally tested. He is alert and oriented x3. Insight and judgment appear fair, and impulse control is limited, but improving. Discharge Data Vitals: Last Vital Signs Temp 97.4 F L 02/27/21 17:18 Pulse 67 02/27/21 17:18 Resp 18 02/27/21 14:00 BP 115/76 02/27/21 17:18 Pulse Ox 95 02/27/21 17:18 Discharge Plan Discharge Patient Disposition: Home Condition: Stable Prescriptions: Continued ibuprofen 800 mg tablet 800 mg PO Q8H PRN (Reason: pain) Qty: 12 RF: 0 quetiapine 200 mg tablet 200 mg PO BEDTIME 30 Days Qty: 30 RF: 1 hydroxyzine pamoate 50 mg capsule 50 mg PO BEDTIME 30 Days Qty: 30 RF: 1 doxepin 10 mg capsule 10 mg PO BEDTIME 30 Days Qty: 30 RF: 1 trazodone 100 mg tablet 200 mg PO BEDTIME 30 Days Qty: 30 RF: 1 hydrochlorothiazide 12.5 mg capsule 12.5 mg PO DAILY 30 Days RF: 0 fluoxetine 20 mg capsule 20 mg PO BEDTIME 30 Days Qty: 30 RF: 1 prazosin 2 mg Capsule 2 mg PO QPM 30 Days Qty: 30 RF: 1 Discharge Orders: Discharge Order (Routine); Ordered 02/27/21 Ordered By: Nasir Dexter Referrals: [facility] [Outside] Discharge Diet: Regular Discharge Activity: Resume usual activity Discharge Attestations NPU Time Spent in Discharge Care*: less than 30 min Specific Discharge Activities: Specific discharge activities: educating patient, discussing with rehabilitation case coordinator/social workers/dc planners, documenting/other paperwork and evaluating patient/reviewing data Coding Level of Care Code Acute Optics Test Technician for [facility] Fwd Diagnoses PTSD (post-traumatic stress disorder) F43.10 Depression F32.9 Suicidal thoughts R45.851 Cannabis abuse F12.10
== END 2021-02-27 18:20 | disposition home or self-care (01) | DRG 881 ==
LOC: ER 16:51 → NP 17:12
PROVIDERS: Admitting Provider Psychiatry & Neurology Psychiatry; Emergency Provider Physician Assistant; Visit Provider Psychiatry & Neurology Psychiatry
DX: F32.9 Major depressive disorder, single episode, unspecified (principal); R45.851 Suicidal ideations; Z91.14 Patient's other noncompliance with medication regimen; Z63.4 Disappearance and death of family member; F12.10 Cannabis abuse, uncomplicated; Z63.0 Problems in relationship with spouse or partner; F43.10 Post-traumatic stress disorder, unspecified; I10 Essential (primary) hypertension; E66.9 Obesity, unspecified; Z68.38 Body mass index [BMI] 38.0-38.9, adult
CPT/HCPCS: 80053; 80306; 80307; 81001; 85025; 99285

== ENCOUNTER 2021-05-15 00:56 | Emergency (ER) | payer SELFPAY ==
[2021-05-15] VITALS (8 sets, daily range): BP systolic 130–138; BP diastolic 77–87; PULSE 104–112; RESP 16–28; TEMP 36.8; O2SAT 95–97; BMI 43.0
--- NOTE | 2021-05-15 00:58 | ECG_ITS ---
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 Measurements Intervals [place] Rate: 111 P: 32 ID: [id number] QRS: 2 QRSD: 108 T: 30 QT: 337 QTc: 459 Interpretive Statements SINUS TACHYCARDIA INCOMPLETE RIGHT BUNDLE BRANCH BLOCK [90+ ms QRS DURATION, TERMINAL R IN V1/V2, 40+ ms S IN I/aVL/V4/V5/V6] POSSIBLE ANTERIOR MYOCARDIAL INFARCTION [30 ms Q WAVE IN V3/V4, OR R < 0.2 mV IN V4], OF INDETERMINATE AGE Compared to ECG 11/02/2018 19:40:35 Incomplete right bundle-branch block now present Atrial flutter no longer present Myocardial infarct finding still present Electronically Signed On 05-15-2021 18:23:29 CDT by Bharat Payton M.D. [email or web address] cox
--- NOTE | 2021-05-15 00:58 | XRR_ITS ---
PROCEDURE INFORMATION: Exam: XR Chest Exam date and time: 05/15/2021 12:58 AM Age: 35 years old Clinical indication: Chest pressure; Patient HX: Left sided chest pain. ; Additional info: Cp TECHNIQUE: Imaging protocol: XR of the chest. Views: 1 view. COMPARISON: CR Chest 1 [place] [id number] 07/08/2018 8:23 PM FINDINGS: Lungs: Unremarkable. No consolidation. Pleural spaces: Unremarkable. No pleural effusion. No pneumothorax. Heart/Mediastinum: Unremarkable. No cardiomegaly. Bones/joints: Unremarkable. XR/XR chest 1V portable [id number] IMPRESSION: No acute disease.
--- NOTE | 2021-05-15 01:11 | W.ED.CHESTPA ---
HPI - Chest Pain General: Chief Complaint: Chest Pain Stated Complaint: CHEST PAIN Time Seen by Provider: 05/15/21 00:57 Source: patient and EMS Mode of arrival: EMS Limitations: no limitations History of Present Illness: HPI narrative: 35-year-old male states he still having left chest pain roughly 30 to 45 minutes ago. He states it is a sharp pain and worse with moves his left arm or if he touches the area that hurts. States improved with rest. Denies any vomiting or diarrhea. Denies any sweating spells. Denies any recent injuries. Associated symptoms: Deny abdominal pain, dyspnea, fever(s), nausea or vomiting Review of Systems Const: Denies: fever(s), chills, body aches or change in appetite Eyes: Denies: blurry vision or eye discomfort ENMT: Denies: throat pain or dental pain Card: Reports: chest pain Resp: Denies: dyspnea GI: Denies: abdominal pain, nausea, vomiting or diarrhea : Denies: dysuria Musc: Denies: neck pain or back pain Skin/Breast: Denies: rash Neuro: Denies: headache(s) Psych: Denies: depression Kb/Lymph: Denies: easy bruising All/Imm: Denies: urticaria PFSH ED PFSH: Medical History (Updated 05/15/21 @ 03:37 by Bethany Carl MD) Alcohol dependence, in remission Cannabis dependence, uncomplicated Opioid dependence, in remission Other stimulant dependence, in remission Post-traumatic stress disorder, chronic Physical Exam Const: COMMON NORMALS: no acute distress, patient oriented x3 and healthy appearing HENMT: COMMON NORMALS: normocephalic and atraumatic HEAD & SCALP: normocephalic and atraumatic Eye: COMMON NORMALS: Equal, round and reactive pupils present and EOMs intact bilaterally PUPIL: Yes Equal, round and reactive pupils present Neck/C-Spine: COMMON NORMALS: full ROM and supple Chest: COMMONS NORMALS: normal inspection of the chest OTHER: Point tender to left chest wall Resp: COMMON NORMALS: normal respiratory effort, No retractions, No use of accessory muscles and clear to auscultation bilaterally AUSCULTATION: clear to auscultation bilaterally Cardio: COMMON NORMALS: regular rate, regular rhythm and No murmurs present (Cardio) RATE: regular rate RHYTHM: regular rhythm GI: COMMON NORMALS: Normal to inspection, nondistended, normoactive bowel sounds present, Soft to palpation, non-tender and no masses PALPATION: Yes Soft to palpation Extremity: COMMON NORMALS: normal to inspection and full ROM Neuro: COMMON NORMALS: patient oriented x3, moves all extremities and no focal motor deficits Psych: COMMON NORMALS: mental status grossly normal, Normal thought process present and cooperative THOUGHT PROCESS: Normal thought process present Skin: COMMON NORMALS: no rashes or lesions noted and no wounds GENERAL SKIN EXAM: no rashes or lesions noted Course Vital Signs: Vital signs: Vital Signs Temperature 98.3 F 05/15/21 03:00 Pulse Rate 105 H 05/15/21 03:00 Respiratory Rate 20 H 05/15/21 03:00 Blood Pressure 138/83 05/15/21 03:00 Pulse Oximetry 97 05/15/21 03:00 MDM - Chest Pain MDM Narrative: Medical decision making narrative: Patient presents here with chest pain that is likely chest wall pain. He is point tender on exam and his initial and repeat troponins here are negative. He has no signs of pulmonary embolism. He is stable for discharge is to follow-up with PCP and return if worsening. Lab Data: Labs: Lab Results 05/15/21 05/15/21 05/15/21 Range/Units 01:11 01:11 01:11 WBC 11.2 H (4.0-10.0) 10^3/ uL RBC 4.66 (4.1-5.3) 10^6/u L Hgb 13.9 (11.7-16.6) g/dL Hct 41.0 L (42.0-52.0) % MCV 88.0 (80-94) fL MCH 29.8 (28.0-34.0) pg MCHC 33.9 (30.0-36.0) g/dL RDW 12.7 (12.1-15.1) % Plt Count 242 (130-400) 10^3/c mm MPV 8.9 (7.4-10.4) fL Neut % (Auto) 59.4 % Lymph % (Auto) 30.7 % [place] % (Auto) 6.5 % Eos % (Auto) 2.5 % Baso % (Auto) 0.5 % Neut # (Auto) 6.64 (1.8-7.7) 10^3/u L Lymph # (Auto) 3.4 (0.8-4.8) 10^3/u L [place] # (Auto) 0.7 (0.2-0.9) 10^3/u L Eos # (Auto) 0.3 (0.0-0.8) 10^3/u L Baso # (Auto) 0.1 (0.0-0.1) 10^3/u L Nucleated RBC % (a uto) 0 % Nucleated RBCs # 0.0 /100WBC D-Dimer (0-0.59) ug/mIFE U Sodium 136 (136-145) mmol/L Potassium 3.4 L (3.5-5.1) mmol/L Chloride 103 (98-107) mmol/L Carbon Dioxide 21 L (22-29) mmol/L Anion Gap 15.4 (5-19) BUN 20 (6-20) mg/dL Creatinine 1.0 (0.7-1.2) mg/dL GFR Calculation 84.5 L (90-130) mL/min Glucose 123 H (65-115) mg/dL Calculated Osmolal ity 286 (285-295) mOsm/k g Calcium 8.2 L (8.5-10.5) mg/dL Total Bilirubin 0.2 (0.15-1.2) mg/dL AST 23 (0-40) U/L ALT 42 H (0-41) U/L Alkaline Phosphata se 59 (40-130) IU/L Troponin T Baselin e 17 H (0-15) ng/L Troponin T 120 Min [place] (0-15) ng/L Delta Troponin T (0-10) ABS# Total Protein 6.9 (6.6-8.7) g/dL Albumin 4.1 (3.5-5.2) g/dL Globulin 2.8 (1.3-4.6) g/dL 05/15/21 05/15/21 Range/Units 01:11 03:00 WBC (4.0-10.0) 10^3/ uL RBC (4.1-5.3) 10^6/u L Hgb (11.7-16.6) g/dL Hct (42.0-52.0) % MCV (80-94) fL MCH (28.0-34.0) pg MCHC (30.0-36.0) g/dL RDW (12.1-15.1) % Plt Count (130-400) 10^3/c mm MPV (7.4-10.4) fL Neut % (Auto) % Lymph % (Auto) % [place] % (Auto) % Eos % (Auto) % Baso % (Auto) % Neut # (Auto) (1.8-7.7) 10^3/u L Lymph # (Auto) (0.8-4.8) 10^3/u L [place] # (Auto) (0.2-0.9) 10^3/u L Eos # (Auto) (0.0-0.8) 10^3/u L Baso # (Auto) (0.0-0.1) 10^3/u L Nucleated RBC % (a uto) % Nucleated RBCs # /100WBC D-Dimer 0.32 (0-0.59) ug/mIFE U Sodium (136-145) mmol/L Potassium (3.5-5.1) mmol/L Chloride (98-107) mmol/L Carbon Dioxide (22-29) mmol/L Anion Gap (5-19) BUN (6-20) mg/dL Creatinine (0.7-1.2) mg/dL GFR Calculation (90-130) mL/min Glucose (65-115) mg/dL Calculated Osmolal ity (285-295) mOsm/k g Calcium (8.5-10.5) mg/dL Total Bilirubin (0.15-1.2) mg/dL AST (0-40) U/L ALT (0-41) U/L Alkaline Phosphata se (40-130) IU/L Troponin T Baselin e (0-15) ng/L Troponin T 120 Min [place] 15.74 H (0-15) ng/L Delta Troponin T -1.26 L (0-10) ABS# Total Protein (6.6-8.7) g/dL Albumin (3.5-5.2) g/dL Globulin (1.3-4.6) g/dL Imaging Data^: CXR: Attestation: I personally reviewed and interpreted this imaging study as follows: Radiologist's impression: [address] [place] [address] XRay Report Signed Patient: Wicho Lugo Unit #: [id number] : 1985 Age/Sex: 35 / M ADM Date: 05/15/21 Loc: ER Room/Bed: Attending Dr: Ordering Provider/Ordering MD: Bethany Carl MD Date of Service: 05/15/21 Procedure(s): XR chest 1V portable [id number] Accession Number(s): [id number] Report Number: [id number] PROCEDURE INFORMATION: Exam: XR Chest Exam date and time: 05/15/2021 12:58 AM Age: 35 years old Clinical indication: Chest pressure; Patient HX: Left sided chest pain. ; Additional info: Cp TECHNIQUE: Imaging protocol: XR of the chest. Views: 1 view. COMPARISON: CR Chest 1 [place] [id number] 07/08/2018 8:23 PM FINDINGS: Lungs: Unremarkable. No consolidation. Pleural spaces: Unremarkable. No pleural effusion. No pneumothorax. Heart/Mediastinum: Unremarkable. No cardiomegaly. Bones/joints: Unremarkable. XR/XR chest 1V portable [id number] IMPRESSION: No acute disease. EKG Data^: EKG 1: Attestation: I personally reviewed and interpreted this EKG as follows: EKG interpretation date: 05/15/21 EKG interpretation time: 01:27 Interpretation: sinus tach hr [address] or t wave abnormalities qrs 108 qtc 403 EKG 2: Attestation: I personally reviewed and interpreted this EKG as follows: EKG interpretation date: 05/15/21 EKG interpretation time: 03:05 Interpretation: sinus tach hr [address] or t wave abnormalities qrs 106 qtc 410 Discharge Plan Discharge Patient Disposition: Home Clinical Impression: Chest pain Qualifiers: Chest pain type: unspecified Qualified Code(s): R07.9 - Chest pain, unspecified Condition: Stable Prescriptions: New Naprosyn 500 mg tablet 500 mg PO BID PRN (Reason: pain) Qty: 20 RF: 0 No Action fluoxetine 20 mg capsule 20 mg PO BEDTIME 30 Days Qty: 30 RF: 1 olanzapine [Zyprexa] 10 mg tablet 10 mg PO .HS Qty: 30 RF: 1 ibuprofen 800 mg tablet 800 mg PO Q8H PRN (Reason: pain) Qty: 12 RF: 0 hydrochlorothiazide 12.5 mg capsule 12.5 mg PO DAILY 30 Days RF: 0 Discharge Orders: Discharge ED (Routine); Ordered 05/15/21 Ordered By: Bethany Carl Discharge Diet: Advance as tolerated Discharge Activity: Resume usual activity Patient Instructions: Chest Pain (ED) Coding Level of Care Code ED Compressor Technician for [facility] 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
[2021-05-15] MEDS: morphine 4 mg/mL SDV 1 mL IVP (01:20)
[2021-05-15] MEDS: ondansetron 2 mg/ML SDV 2 mL 4 MG IVP (01:21)
[2021-05-15 01:23] LABS: Basophils # 0.1 10^3/uL (0.0-0.1); Basophils % 0.5 %; Eosinophils # 0.3 10^3/uL (0.0-0.8); Eosinophils % 2.5 %; Hemoglobin 13.9 g/dL (11.7-16.6); Lymphocytes # 3.4 10^3/uL (0.8-4.8); Lymphocytes % 30.7 %; Mean Corpuscular HGB Conc 33.9 g/dL (30.0-36.0); Mean Corpuscular Hemoglobin 29.8 pg (28.0-34.0); Mean Platelet Volume 8.9 fL (7.4-10.4); Monocytes # 0.7 10^3/uL (0.2-0.9); Monocytes % 6.5 %; Neutrophils # 6.64 10^3/uL (1.8-7.7); Neutrophils % 59.4 %; Nucleated Red Blood Cells % 0 %; Platelet Count 242 10^3/cmm (130-400); Red Blood Count 4.66 10^6/uL (4.1-5.3); Red Cell Distribution Width 12.7 % (12.1-15.1); White Blood Count 11.2 10^3/uL (4.0-10.0)
[2021-05-15 01:33] LABS: D Dimer 0.32 ug/mIFEU (0-0.59)
[2021-05-15 01:35] LABS: Troponin(5th) Baseline 17 ng/L (0-15)
[2021-05-15 01:38] LABS: Alanine Aminotransferase 42 U/L (0-41); Albumin Level 4.1 g/dL (3.5-5.2); Alkaline Phosphatase 59 IU/L (40-130); Anion Gap 15.4 (5-19); Aspartate Amino Transferase 23 U/L (0-40); Blood Urea Nitrogen 20 mg/dL (6-20); Calcium 8.2 mg/dL (8.5-10.5); Carbon Dioxide 21 mmol/L (22-29); Chloride 103 mmol/L (98-107); Globulin 2.8 g/dL (1.3-4.6); Glomerular Filtration Rate 84.5 mL/min (90-130); Glucose 123 mg/dL (65-115); Osmolality Calculated 286 mOsm/kg (285-295); Potassium 3.4 mmol/L (3.5-5.1); Sodium 136 mmol/L (136-145); Total Bilirubin 0.2 mg/dL (0.15-1.2); Total Protein 6.9 g/dL (6.6-8.7)
[2021-05-15 03:34] LABS: Troponin 5 2HR 15.74 ng/L (0-15)
[2021-05-15 03:35] LABS: Troponin 5 2HR Delta -1.26 ABS# (0-10)
== END 2021-05-15 03:50 | disposition home or self-care (01) ==
PROVIDERS: Emergency Provider Emergency Medicine
DX: R07.9 Chest pain, unspecified (principal)
CPT/HCPCS: 71045; 80053; 84484; 85025; 85378; 93005; 96374; 96375; 99284; J2270; J2405

== ENCOUNTER 2021-06-12 02:09 | Emergency (ER) | payer SELFPAY ==
[2021-06-12 02:10] VITALS: BP 149/123; PULSE 111; RESP 16; O2SAT 98; BMI 43.7
--- NOTE | 2021-06-12 02:16 | W.ED.NAVMDI ---
HPI - Nausea/Vomiting/Diarrhea General: Chief complaint: Nausea/Vomiting/Diarrhea Stated complaint: N/V Time Seen by Provider: 06/12/21 02:10 Source: patient Mode of arrival: ambulatory Limitations: no limitations History of Present Illness: HPI Narrative: 35-year-old male states that he was at work yesterday he works at the [employer]. He states he felt like he got overheated and overnight started feeling sick to stomach and is been vomiting off and on since last night. He states he started vomiting again an hour ago and just just felt sick and dehydrated. He states had some body aches. Denies any abdominal pain or chest pain. Denies any fevers. Denies any recent illness. Patient given Zofran in route states has had slight improvement with that. Associated symtoms: Denies chest pain, dysuria or headache(s) Review of Systems Const: Denies: fever(s), chills, body aches or change in appetite Eyes: Denies: blurry vision or eye discomfort ENMT: Denies: throat pain or dental pain Card: Denies: chest pain Resp: Denies: dyspnea GI: Reports: vomiting : Denies: dysuria Musc: Denies: neck pain or back pain Skin/Breast: Denies: rash Neuro: Denies: headache(s) Psych: Denies: depression Kb/Lymph: Denies: easy bruising All/Imm: Denies: urticaria PFS ED PFSH: Medical History (Updated 06/12/21 @ 03:38 by Bethany Carl MD) Alcohol dependence, in remission Cannabis dependence, uncomplicated Opioid dependence, in remission Other stimulant dependence, in remission Post-traumatic stress disorder, chronic Physical Exam Const: COMMON NORMALS: no acute distress, patient oriented x3 and healthy appearing HENMT: COMMON NORMALS: normocephalic and atraumatic HEAD & SCALP: normocephalic and atraumatic Eye: COMMON NORMALS: Equal, round and reactive pupils present and EOMs intact bilaterally PUPIL: Yes Equal, round and reactive pupils present Neck/C-Spine: COMMON NORMALS: full ROM and supple Chest: COMMONS NORMALS: normal inspection of the chest and normal palpation of entire chest wall Resp: COMMON NORMALS: normal respiratory effort, No retractions, No use of accessory muscles and clear to auscultation bilaterally AUSCULTATION: clear to auscultation bilaterally Cardio: COMMON NORMALS: regular rhythm and No murmurs present (Cardio) RATE: tachycardic RHYTHM: regular rhythm GI: COMMON NORMALS: Normal to inspection, nondistended, normoactive bowel sounds present, Soft to palpation, non-tender and no masses PALPATION: Yes Soft to palpation Extremity: COMMON NORMALS: normal to inspection and full ROM Neuro: COMMON NORMALS: patient oriented x3, moves all extremities and no focal motor deficits Psych: COMMON NORMALS: mental status grossly normal, Normal thought process present and cooperative THOUGHT PROCESS: Normal thought process present Skin: COMMON NORMALS: no rashes or lesions noted and no wounds GENERAL SKIN EXAM: no rashes or lesions noted Course Vital Signs: Vital signs: Vital Signs Pulse Rate 111 H 06/12/21 02:10 Respiratory Rate 16 06/12/21 02:10 Blood Pressure 149/123 06/12/21 02:10 Pulse Oximetry 98 06/12/21 02:10 MDM - Nausea/Vomiting/Diarrhea MDM Narrative: Medical decision making narrative: Patient presents here with nausea and vomiting with heat exposure. He likely did get overheated. He feels much improved after IV fluids. His blood work here is all normal has normal white count. His abdominal exam is benign and he has no signs of acute surgical abdomen. Will prescribe him Zofran. He is to return if he has any pain or worsening of his vomiting Lab Data: Labs: Lab Results 06/12/21 06/12/21 Range/Units 02:16 02:16 WBC 8.5 (4.0-10.0) 10^3/ uL RBC 4.72 (4.1-5.3) 10^6/u L Hgb 14.1 (11.7-16.6) g/dL Hct 41.7 L (42.0-52.0) % MCV 88.3 (80-94) fL MCH 29.9 (28.0-34.0) pg MCHC 33.8 (30.0-36.0) g/dL RDW 12.6 (12.1-15.1) % Plt Count 220 (130-400) 10^3/c mm MPV 9.1 (7.4-10.4) fL Neut % (Auto) 39.2 % Lymph % (Auto) 48.8 % [place] % (Auto) 7.1 % Eos % (Auto) 4.0 % Baso % (Auto) 0.7 % Neut # (Auto) 3.32 (1.8-7.7) 10^3/u L Lymph # (Auto) 4.1 (0.8-4.8) 10^3/u L [place] # (Auto) 0.6 (0.2-0.9) 10^3/u L Eos # (Auto) 0.3 (0.0-0.8) 10^3/u L Baso # (Auto) 0.1 (0.0-0.1) 10^3/u L Nucleated RBC % (a uto) 0 % Nucleated RBCs # 0.0 /100WBC Sodium 140 (136-145) mmol/L Potassium 3.7 (3.5-5.1) mmol/L Chloride 106 (98-107) mmol/L Carbon Dioxide 22 (22-29) mmol/L Anion Gap 15.7 (5-19) BUN 19 (6-20) mg/dL Creatinine 0.9 (0.7-1.2) mg/dL GFR Calculation 95.5 (90-130) mL/min Glucose 130 H (65-115) mg/dL Calculated Osmolal ity 294 (285-295) mOsm/k g Calcium 8.4 L (8.5-10.5) mg/dL Total Bilirubin 0.2 (0.15-1.2) mg/dL AST 28 (0-40) U/L ALT 37 (0-41) U/L Alkaline Phosphata se 61 (40-130) IU/L Creatine Kinase 293 (39-308) U/L Total Protein 7.0 (6.6-8.7) g/dL Albumin 4.1 (3.5-5.2) g/dL Globulin 2.9 (1.3-4.6) g/dL Lipase 80 H (13-60) U/L Ethyl Alcohol < 10 (0-10) mg/dL Discharge Plan Discharge Patient Disposition: Home Clinical Impression: Vomiting Qualifiers: Vomiting type: unspecified Vomiting Intractability: non-intractable Nausea presence: with nausea Qualified Code(s): R11.2 - Nausea with vomiting, unspecified Condition: Stable Prescriptions: New ondansetron 4 mg tablet,disintegrating 4 mg PO Q6H PRN (Reason: nausea and vomiting) Qty: 14 RF: 0 No Action olanzapine [Zyprexa] 10 mg tablet 10 mg PO .HS Qty: 30 RF: 1 fluoxetine 20 mg capsule 20 mg PO BEDTIME 30 Days Qty: 30 RF: 1 ibuprofen 800 mg tablet 800 mg PO Q8H PRN (Reason: pain) Qty: 12 RF: 0 hydrochlorothiazide 12.5 mg capsule 12.5 mg PO DAILY 30 Days RF: 0 Naprosyn 500 mg tablet 500 mg PO BID PRN (Reason: pain) Qty: 20 RF: 0 Discharge Orders: Discharge ED (Routine); Ordered 06/12/21 Ordered By: Bethany Carl Discharge Diet: Advance as tolerated Discharge Activity: Resume usual activity Patient Instructions: Acute Nausea and Vomiting (ED) Stand Alone Forms: Work/School Release Coding Level of Care Code 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
[2021-06-12 02:27] LABS: Basophils # 0.1 10^3/uL (0.0-0.1); Basophils % 0.7 %; Eosinophils # 0.3 10^3/uL (0.0-0.8); Hematocrit 41.7 % (42.0-52.0); Hemoglobin 14.1 g/dL (11.7-16.6); Lymphocytes # 4.1 10^3/uL (0.8-4.8); Lymphocytes % 48.8 %; Mean Corpuscular HGB Conc 33.8 g/dL (30.0-36.0); Mean Corpuscular Hemoglobin 29.9 pg (28.0-34.0); Mean Corpuscular Volume 88.3 fL (80-94); Mean Platelet Volume 9.1 fL (7.4-10.4); Monocytes # 0.6 10^3/uL (0.2-0.9); Monocytes % 7.1 %; Neutrophils # 3.32 10^3/uL (1.8-7.7); Neutrophils % 39.2 %; Nucleated Red Blood Cells % 0 %; Platelet Count 220 10^3/cmm (130-400); Red Blood Count 4.72 10^6/uL (4.1-5.3); Red Cell Distribution Width 12.6 % (12.1-15.1); White Blood Count 8.5 10^3/uL (4.0-10.0)
[2021-06-12 02:48] LABS: Alanine Aminotransferase 37 U/L (0-41); Albumin Level 4.1 g/dL (3.5-5.2); Alkaline Phosphatase 61 IU/L (40-130); Blood Urea Nitrogen 19 mg/dL (6-20); Calcium 8.4 mg/dL (8.5-10.5); Carbon Dioxide 22 mmol/L (22-29); Chloride 106 mmol/L (98-107); Creatine Phosphokinase 293 U/L (39-308); Globulin 2.9 g/dL (1.3-4.6); Glomerular Filtration Rate 95.5 mL/min (90-130); Glucose 130 mg/dL (65-115); Lipase 80 U/L (13-60); Osmolality Calculated 294 mOsm/kg (285-295); Sodium 140 mmol/L (136-145); Total Bilirubin 0.2 mg/dL (0.15-1.2)
[2021-06-12] MEDS: sodium chloride 0.9% 1,000 ML 999 ML IV ×2 (02:51→02:52)
[2021-06-12] MEDS: ondansetron 2 mg/ML SDV 2 mL 4 MG IVP (02:52)
[2021-06-12] MEDS: promethazine 25 mg/mL SDV 1 mL IM (02:52)
[2021-06-12 02:54] LABS: Alcohol Level < 10 mg/dL (0-10); Anion Gap 15.7 (5-19); Aspartate Amino Transferase 28 U/L (0-40); Potassium 3.7 mmol/L (3.5-5.1)
--- NOTE | 2021-06-12 03:53 | PC.NURSE ---
Ambulated to bathroom. States nausea is better.
[2021-06-12 03:59] VITALS: BP 157/115; PULSE 95; RESP 19; O2SAT 98
[2021-06-12 04:08] LABS: CKMB 1.9 ng/mL (0-10.4)
== END 2021-06-12 03:59 | disposition home or self-care (01) ==
PROVIDERS: Emergency Provider Emergency Medicine
DX: R11.2 Nausea with vomiting, unspecified (principal)
CPT/HCPCS: 80053; 80307; 82550; 82553; 83690; 85025; 96361; 96372; 96374; 99283; J2405; J2550; J7030

== ENCOUNTER 2021-06-19 21:42 | Inpatient (IN) | payer SELFPAY ==
[2021-06-19 21:47] VITALS: BP 157/123; PULSE 117; RESP 20; TEMP 36.9; O2SAT 97; BMI 43.1
--- NOTE | 2021-06-19 22:02 | ECG_ITS ---
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 Measurements Intervals [place] Rate: 95 P: 63 WA: 147 QRS: 51 QRSD: 105 T: 57 QT: 350 QTc: 441 Interpretive Statements SINUS RHYTHM WARNING: DATA QUALITY MAY AFFECT INTERPRETATION Compared to ECG 05/15/2021 01:27:39 Sinus tachycardia no longer present Incomplete right bundle-branch block no longer present Myocardial infarct finding no longer present Electronically Signed On 06-20-2021 14:53:59 CDT by Angelia Olea M.D. [id number]
--- NOTE | 2021-06-19 22:03 | ED_ITS ---
HPI - Psych General: Chief Complaint: Psychiatric Symptoms Stated Complaint: si Time Seen by Provider: 06/19/21 21:51 History of Present Illness: HPI Narrative: 35-year-old male patient comes in tonight with suicidal thoughts and ideation. Patient reports that he has been holding a knife considering on cutting his wrists or his throat for about 3 hours tonight. Patient then become more upset and called EMS for assistance. Patient has been on fluoxetine and Zyprexa for his depression but he stopped taking it 1 week ago. Patient admits to cannabis use but the last time he used was 2 weeks ago. Patient does routinely smoke tobacco. Patient denies any alcohol or other illicit drug use. Patient has had 2 previous admissions to the psychiatric unit once in November and once in January. Patient states that in 2011 he lost his baby daughter who was stillborn at 37 weeks and his brother who was 19. [facility]. Patient is not homeless he works at the [employer]. Patient reports that she is for the last 2 weeks he has had worsening depression to where he stopped taking his medication and now has had increasing thoughts of suicide. Patient is cooperative. Patient does seek voluntary admission to the neuropsychiatric unit. complaint: suicidal ideation Onset (ago): day(s) Duration: intermittent and getting worse Relieving factors: none Exacerbating factors: none Associated symptoms: Reports depression and suicidal ideation Treatments prior to arrival: none If self harm: admits thoughts of self harm and has plan Details of plan: He wants to use a knife to cut his wrists and throat Review of Systems Psych: Reports: depression and suicidal ideation [facility] ED PFSH: Medical History (Updated 06/19/21 @ 23:08 by CURT [place]) Alcohol dependence, in remission Cannabis dependence, uncomplicated Opioid dependence, in remission Other stimulant dependence, in remission Post-traumatic stress disorder, chronic Physical Exam Const: COMMON NORMALS: no acute distress and patient oriented x3 GENERAL APPEARANCE: cooperative HENMT: COMMON NORMALS: normocephalic and Normal external nose present HEAD & SCALP: normal to inspection and normocephalic NOSE: Normal external nose present MOUTH: Normal oral and palatal mucosa present Eye: GENERAL EYE: appearance normal, both eyes and all related structures Neck/C-Spine: COMMON NORMALS: full ROM Chest: COMMONS NORMALS: normal inspection of the chest Resp: COMMON NORMALS: normal respiratory effort and clear to auscultation bilaterally EFFORT & INSPECTION: Yes able to speak in complete sentences AUSCULTATION: clear to auscultation bilaterally Cardio: COMMON NORMALS: regular rate and regular rhythm RATE: regular rate RHYTHM: regular rhythm GI: COMMON NORMALS: non-tender Back/Pelvis: COMMON NORMALS: thoracic and lumbar spine normal to inspection Extremity: COMMON NORMALS: normal to inspection Neuro: COMMON NORMALS: patient oriented x3 and moves all extremities Psych: COMMON NORMALS: mental status grossly normal and cooperative Skin: COMMON NORMALS: no rashes or lesions noted GENERAL SKIN EXAM: no rashes or lesions noted Course ED course: 0, discussed with Dr. Dexter who agreed to admission for suicidal ideation to inpatient status on neuropsychiatric unit. Patient is resting well and agrees to plan. Vital Signs: Vital signs: Vital Signs Temperature 98.5 F 06/19/21 21:47 Pulse Rate 92 06/19/21 22:59 Respiratory Rate 16 06/19/21 22:59 Blood Pressure 143/91 06/19/21 22:59 Pulse Oximetry 97 06/19/21 22:59 MDM - Psych MDM Narrative: Medical decision making narrative: Patient comes in today for complaints of suicidal thought. Patient denies any use of drugs. Patient has stopped taking his Zyprexa and Prozac about 1 week ago due to worsening depression. Patient reports a plan of wanting to cut his wrists and neck. Patient is alert oriented. Vital signs are normal. Patient does make some complaints of chest discomfort with movement. Patient does have some tenderness to the chest wall on palpation. Differential diagnosis includes suicidal ideation, major depressive disorder, malingering, PTSD, atypical chest pain. Troponin was negative EKG was normal. I believe the patient's has some musculoskeletal chest wall pain. Vital signs were normal. Remainder of labs were all within normal limits without any signs of significant abnormalities. Reviewed exam with Dr. Dexter who agreed for admission to neuropsychiatric unit. Dr. Dominguez was consulted for admission orders. Lab Data: Labs: Lab Results 06/19/21 06/19/21 06/19/21 Range/Units 22:32 22:32 22:32 WBC 8.0 (4.0-10.0) 10^3/ uL RBC 4.69 (4.1-5.3) 10^6/u L Hgb 14.0 (11.7-16.6) g/dL Hct 41.7 L (42.0-52.0) % MCV 88.9 (80-94) fL MCH 29.9 (28.0-34.0) pg MCHC 33.6 (30.0-36.0) g/dL RDW 12.7 (12.1-15.1) % Plt Count 203 (130-400) 10^3/c mm MPV 9.0 (7.4-10.4) fL Neut % (Auto) 42.6 % Lymph % (Auto) 43.6 % [place] % (Auto) 8.4 % Eos % (Auto) 4.7 % Baso % (Auto) 0.5 % Neut # (Auto) 3.41 (1.8-7.7) 10^3/u L Lymph # (Auto) 3.5 (0.8-4.8) 10^3/u L [place] # (Auto) 0.7 (0.2-0.9) 10^3/u L Eos # (Auto) 0.4 (0.0-0.8) 10^3/u L Baso # (Auto) 0.0 (0.0-0.1) 10^3/u L Nucleated RBC % (a uto) 0 % Nucleated RBCs # 0.0 /100WBC Sodium 136 (136-145) mmol/L Potassium 4.2 (3.5-5.1) mmol/L Chloride 103 (98-107) mmol/L Carbon Dioxide 21 L (22-29) mmol/L Anion Gap 16.2 (5-19) BUN 16 (6-20) mg/dL Creatinine 0.9 (0.7-1.2) mg/dL GFR Calculation 95.5 (90-130) mL/min Glucose 102 (65-115) mg/dL Calculated Osmolal ity 283 L (285-295) mOsm/k g Calcium 8.5 (8.5-10.5) mg/dL Total Bilirubin 0.2 (0.15-1.2) mg/dL AST 26 (0-40) U/L ALT 35 (0-41) U/L Alkaline Phosphata se 58 (40-130) IU/L Troponin T Gen 5 n g/L 6 (0-15) ng/L Total Protein 6.6 (6.6-8.7) g/dL Albumin 4.2 (3.5-5.2) g/dL Globulin 2.4 (1.3-4.6) g/dL TSH 2.20 (0.27-4.20) uIU/ mL Urine Color (Yellow) Urine Appearance (CLEAR) Urine pH (5-7) Ur Specific Gravit y (1.005-1.030) Urine Protein (Negative) Urine Glucose (UA) (Normal) Urine Ketones (Negative) Urine Blood (Negative) Urine Nitrate (Negative) Urine Bilirubin (Negative) Urine Urobilinogen (Negative) mg/dL Ur Leukocyte [place]ry ase (Negative) Salicylates < 0.3 L (3-10) mg/dL Urine Opiates Scre en (Negative) ng/mL Acetaminophen < 5.0 L (10-30) ug/mL Ur Barbiturates Sc reen (Negative) ng/mL Ur Phencyclidine S crn (Negative) ng/mL Ur Amphetamines Sc reen (Negative) ng/mL U Benzodiazepines Scrn (Negative) ng/mL Urine Cocaine Scre en (Negative) ng/mL U Marijuana (THC) Screen (Negative) ng/mL Ethyl Alcohol < 10 (0-10) mg/dL SARS-CoV-2 Ag (Rap id) (Negative) 06/19/21 06/19/21 06/19/21 Range/Units 22:32 22:32 22:32 WBC (4.0-10.0) 10^3/ uL RBC (4.1-5.3) 10^6/u L Hgb (11.7-16.6) g/dL Hct (42.0-52.0) % MCV (80-94) fL MCH (28.0-34.0) pg MCHC (30.0-36.0) g/dL RDW (12.1-15.1) % Plt Count (130-400) 10^3/c mm MPV (7.4-10.4) fL Neut % (Auto) % Lymph % (Auto) % [place] % (Auto) % Eos % (Auto) % Baso % (Auto) % Neut # (Auto) (1.8-7.7) 10^3/u L Lymph # (Auto) (0.8-4.8) 10^3/u L [place] # (Auto) (0.2-0.9) 10^3/u L Eos # (Auto) (0.0-0.8) 10^3/u L Baso # (Auto) (0.0-0.1) 10^3/u L Nucleated RBC % (a uto) % Nucleated RBCs # /100WBC Sodium (136-145) mmol/L Potassium (3.5-5.1) mmol/L Chloride (98-107) mmol/L Carbon Dioxide (22-29) mmol/L Anion Gap (5-19) BUN (6-20) mg/dL Creatinine (0.7-1.2) mg/dL GFR Calculation (90-130) mL/min Glucose (65-115) mg/dL Calculated Osmolal ity (285-295) mOsm/k g Calcium (8.5-10.5) mg/dL Total Bilirubin (0.15-1.2) mg/dL AST (0-40) U/L ALT (0-41) U/L Alkaline Phosphata se (40-130) IU/L Troponin T Gen 5 n g/L (0-15) ng/L Total Protein (6.6-8.7) g/dL Albumin (3.5-5.2) g/dL Globulin (1.3-4.6) g/dL TSH (0.27-4.20) uIU/ mL Urine Color Yellow (Yellow) Urine Appearance Clear (CLEAR) Urine pH 5 (5-7) Ur Specific Gravit y 1.020 (1.005-1.030) Urine Protein Neg (Negative) Urine Glucose (UA) Norm (Normal) Urine Ketones Negative (Negative) Urine Blood Neg (Negative) Urine Nitrate Negative (Negative) Urine Bilirubin Neg (Negative) Urine Urobilinogen Norm (Negative) mg/dL Ur Leukocyte [place]ry ase Negative (Negative) Salicylates (3-10) mg/dL Urine Opiates Scre en Negative (Negative) ng/mL Acetaminophen (10-30) ug/mL Ur Barbiturates Sc reen Negative (Negative) ng/mL Ur Phencyclidine S crn Negative (Negative) ng/mL Ur Amphetamines Sc reen Negative (Negative) ng/mL U Benzodiazepines Scrn Negative (Negative) ng/mL Urine Cocaine Scre en Negative (Negative) ng/mL U Marijuana (THC) Screen Negative (Negative) ng/mL Ethyl Alcohol (0-10) mg/dL SARS-CoV-2 Ag (Rap id) Negative (Negative) EKG Data^: EKG 1: Attestation: I personally reviewed and interpreted this EKG as follows: (2250, EKG shows a sinus rhythm with a regular rate at [address] elevation and no ectopy is noted. EKG is read at a normal EKG. No prior exam is available at this time for comparison.) Discharge Plan Discharge Patient Disposition: Admitted As Inpatient Clinical Impression: Suicidal ideation, Post-traumatic stress disorder, chronic Depression Qualifiers: Depression Type: major depressive disorder Major depression recurrence: recurrent Active/Remission status: currently active Major depression episode severity: severe Psychotic features: without psychotic features Qualified Code(s): F33.2 - Major depressive disorder, recurrent severe without psychotic features Condition: Stable Coding Level of Care Code ED Office Clerk Routine for Chg 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
[2021-06-19 22:38] LABS: Add Urine Microscopic? NO; Basophils % 0.5 %; Charge for UA Resulting for Rev; Eosinophils # 0.4 10^3/uL (0.0-0.8); Eosinophils % 4.7 %; Hematocrit 41.7 % (42.0-52.0); Lymphocytes # 3.5 10^3/uL (0.8-4.8); Lymphocytes % 43.6 %; Mean Corpuscular HGB Conc 33.6 g/dL (30.0-36.0); Mean Corpuscular Hemoglobin 29.9 pg (28.0-34.0); Mean Corpuscular Volume 88.9 fL (80-94); Monocytes # 0.7 10^3/uL (0.2-0.9); Monocytes % 8.4 %; Neutrophils # 3.41 10^3/uL (1.8-7.7); Neutrophils % 42.6 %; Nucleated Red Blood Cells % 0 %; Platelet Count 203 10^3/cmm (130-400); Red Blood Count 4.69 10^6/uL (4.1-5.3); Red Cell Distribution Width 12.7 % (12.1-15.1)
[2021-06-19 22:41] LABS: Bilirubin Urine Neg (Negative); Blood Urine Neg (Negative); Glucose Urine UA Norm (Normal); Ketones Urine Negative (Negative); Leukocyte Esterase Urine Negative (Negative); Nitrate Urine Negative (Negative); Protein Urine Neg (Negative); Urine Appearance Clear (CLEAR); Urine Color Yellow (Yellow); Urobilinogen Urine Norm (Negative); pH Urine 5 (5-7)
[2021-06-19 22:49] LABS: Amphetamines Screen Urine Negative (Negative); Barbiturates Screen Urine Negative (Negative); Benzodiazepines Screen Urine Negative (Negative); Cocaine Screen Urine Negative (Negative); Opiate Screen Urine Negative (Negative); PCP Screen Urine Negative (Negative); THC Screen Urine Negative (Negative)
[2021-06-19 22:57] LABS: SARS Covid-2 Antigen Negative (Negative)
[2021-06-19 22:59] VITALS: BP 143/91; PULSE 92; RESP 16; O2SAT 97
[2021-06-19 23:01] LABS: Troponin T (5th) Once 6 ng/L (0-15)
[2021-06-19 23:11] LABS: Alanine Aminotransferase 35 U/L (0-41); Albumin Level 4.2 g/dL (3.5-5.2); Alkaline Phosphatase 58 IU/L (40-130); Anion Gap 16.2 (5-19); Aspartate Amino Transferase 26 U/L (0-40); Blood Urea Nitrogen 16 mg/dL (6-20); Calcium 8.5 mg/dL (8.5-10.5); Carbon Dioxide 21 mmol/L (22-29); Chloride 103 mmol/L (98-107); Globulin 2.4 g/dL (1.3-4.6); Glomerular Filtration Rate 95.5 mL/min (90-130); Glucose 102 mg/dL (65-115); Osmolality Calculated 283 mOsm/kg (285-295); Potassium 4.2 mmol/L (3.5-5.1); Sodium 136 mmol/L (136-145); Total Bilirubin 0.2 mg/dL (0.15-1.2); Total Protein 6.6 g/dL (6.6-8.7)
[2021-06-19 23:12] LABS: Acetaminophen < 5.0 ug/mL (10-30); Alcohol Level < 10 mg/dL (0-10); Salicylate < 0.3 mg/dL (3-10)
[2021-06-19] MEDS: acetaminophen 500 mg Tablet 1000 MG PO (23:44)
[2021-06-19 23:50] VITALS: PULSE 72; RESP 18; O2SAT 96
[2021-06-20 01:52] VITALS: BP 143/91; PULSE 70; RESP 17; TEMP 36.9; O2SAT 96
--- NOTE | 2021-06-20 02:33 | PC.NURSE ---
PM Assessment 35/M suicidal ideation. Patient reports that he has been holding a knife considering on cutting his wrists or his throat for about 3 hours tonight and he called EMS for assistance. Patient has been on fluoxetine and Zyprexa for his depression but he stopped taking it 1 week ago. Patient does routinely smoke tobacco. Patient denies any alcohol or other illicit drug use. Patient has had 2 previous admissions to the psychiatric unit once in November and once in January. Patient states that in 2011 he lost his baby daughter who was stillborn at 37 weeks and his brother who was 19. Patient was released from the [facility] and October 2020. Patient is not homeless he works at the [employer]. Patient reports that she is for the last 2 weeks he has had worsening depression to where he stopped taking his medication and now has had increasing thoughts of suicide.
[2021-06-20 06:00] VITALS: BP 145/96; PULSE 87; RESP 18; TEMP 37; O2SAT 95
[2021-06-20] MEDS: nicotine 2 mg Gum BUCCAL ×4 (10:34→19:44)
[2021-06-20 14:00] VITALS: BP 131/79; PULSE 88; RESP 16; TEMP 36.7; O2SAT 95
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
[2021-06-20 20:33] VITALS: BP 137/89; PULSE 94; RESP 18; TEMP 36.5; O2SAT 96
[2021-06-20] MEDS: fluoxetine 20 mg Capsule PO (21:02)
[2021-06-20] MEDS: OLANZapine 10 mg TABLET PO (21:02)
[2021-06-20] MEDS: hyDROXYzine 25 mg Capsule 50 MG PO (21:49)
[2021-06-20] MEDS: trazodone 50 mg Tablet PO (21:49)
[2021-06-20] MEDS: ibuprofen 800 mg tablet PO (21:51)
--- NOTE | 2021-06-20 21:57 | PC.NURSE ---
Trazodone 50 mg po given for insomnia. Vistaril 50 mg po given for anxiety.
[2021-06-21 06:00] VITALS: BP 111/72; PULSE 74; RESP 17; TEMP 36.5; O2SAT 95
--- NOTE | 2021-06-21 08:12 | PC.NURSE ---
pt refused scheduled Hctz this morning
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
[2021-06-21 12:00] VITALS: BP 111/72; PULSE 74; RESP 17; TEMP 36.5; O2SAT 95
== END 2021-06-21 12:12 | disposition home or self-care (01) | DRG 885 ==
LOC: ER 23:08 → NP 23:27
PROVIDERS: Admitting Provider Psychiatry & Neurology Psychiatry; Emergency Provider Nurse Practitioner Family; Visit Provider Psychiatry & Neurology Psychiatry
DX: F33.2 Major depressive disorder, recurrent severe without psychotic features (principal); R45.851 Suicidal ideations; Z68.41 Body mass index [BMI] 40.0-44.9, adult; F12.20 Cannabis dependence, uncomplicated; F17.210 Nicotine dependence, cigarettes, uncomplicated; F10.21 Alcohol dependence, in remission; F11.21 Opioid dependence, in remission; F43.12 Post-traumatic stress disorder, chronic; E66.9 Obesity, unspecified
CPT/HCPCS: 80053; 80306; 80307; 81003; 84443; 84484; 85025; 87426; 93005; 99285

== ENCOUNTER 2021-07-23 20:00 | Outpatient (CLI) | payer SELFPAY | END 2021-07-23 20:01 | disposition home or self-care (01) | LOC: SLEEP 07-24 08:19 | PROVIDERS: Visit Provider Nurse Practitioner | DX: G47.10 Hypersomnia, unspecified (principal); R06.83 Snoring; R53.83 Other fatigue; G47.33 Obstructive sleep apnea (adult) (pediatric) | CPT/HCPCS: 95810 ==

== ENCOUNTER 2021-11-04 21:21 | Emergency (ER) | payer MEDICAID, OTHER, SELFPAY ==
[2021-11-04 21:27] VITALS: BP 150/108; PULSE 111; RESP 18; TEMP 36.8; O2SAT 96; BMI 43.9
--- NOTE | 2021-11-04 22:09 | XRR_ITS ---
PROCEDURE INFORMATION: Exam: XR Chest Exam date and time: 11/04/2021 10:09 PM Age: 36 years old Clinical indication: Pain; Left-sided; Additional info: Cp TECHNIQUE: Imaging protocol: XR of the chest. Views: 1 view. COMPARISON: CR XR chest 1V portable [id number] 05/15/2021 1:07 AM FINDINGS: Lungs: Unremarkable. No consolidation. Pleural spaces: Unremarkable. No pleural effusion. No pneumothorax. Heart/Mediastinum: Unremarkable. No cardiomegaly. Bones/joints: Unremarkable. XR/XR chest 1V portable [id number] IMPRESSION: No acute findings.
--- NOTE | 2021-11-04 22:10 | ECG_ITS ---
[facility] Test Date: 2021-11-04 Pat Name: Wicho Lugo Department: Room: Gender: Male Bsw: : 1985 Requested By: Bethany Carl Order Number: [id number] Sil MD: Padmini Ozuna M.D. Measurements Intervals [place] Rate: 106 P: 40 ND: 136 QRS: 84 QRSD: 107 T: 14 QT: 333 QTc: 442 Interpretive Statements SINUS TACHYCARDIA ABNORMAL RHYTHM ECG Compared to ECG 06/19/2021 22:44:40 Sinus rhythm no longer present Electronically Signed On 11-05-2021 16:40:33 TOMBSTONE SETTER by Padmini Ozuna M.D. [id number]
[2021-11-04 22:16] LABS: Basophils # 0.1 10^3/uL (0.0-0.1); Basophils % 0.5 %; Eosinophils # 0.3 10^3/uL (0.0-0.8); Eosinophils % 2.7 %; Hematocrit 43.6 % (42.0-52.0); Hemoglobin 15.4 g/dL (11.7-16.6); Lymphocytes # 3.2 10^3/uL (0.8-4.8); Lymphocytes % 34.8 %; Mean Corpuscular HGB Conc 35.3 g/dL (30.0-36.0); Mean Corpuscular Hemoglobin 29.7 pg (28.0-34.0); Monocytes # 0.7 10^3/uL (0.2-0.9); Monocytes % 7.1 %; Neutrophils # 5.06 10^3/uL (1.8-7.7); Neutrophils % 54.7 %; Nucleated Red Blood Cells % 0 %; Platelet Count 262 10^3/cmm (130-400); Red Blood Count 5.19 10^6/uL (4.1-5.3); Red Cell Distribution Width 12.1 % (12.1-15.1); White Blood Count 9.3 10^3/uL (4.0-10.0)
--- NOTE | 2021-11-04 22:18 | W.ED.NAVMDI ---
HPI - Nausea/Vomiting/Diarrhea General: Chief complaint: Nausea/Vomiting/Diarrhea Stated complaint: SOB, vomiting Time Seen by Provider: 11/04/21 22:17 History of Present Illness: HPI Narrative: 36-year-old male patient comes in today with complaints of nausea and vomiting for the last 2 days. Patient reports some generalized body aches. Patient appears mildly unwell but not toxic. Patient appears in no pain. MD elicited complaint: nausea and vomiting Associated nausea: Yes Associated symtoms: Reports fatigue and nausea Review of Systems General: Reports: 10 or more systems reviewed and unremarkable except in HPI and below Const: Reports: fatigue GI: Reports: nausea and vomiting Musc: Reports: muscle cramps PFSH ED PFSH: Medical History (Updated 11/04/21 @ 23:00 by CURT [place]) Alcohol dependence, in remission Cannabis dependence, uncomplicated Opioid dependence, in remission Other stimulant dependence, in remission Post-traumatic stress disorder, chronic Psychiatric care Physical Exam Const: COMMON NORMALS: no acute distress and patient oriented x3 GENERAL APPEARANCE: cooperative HENMT: COMMON NORMALS: normocephalic, TM's normal bilaterally and Normal external nose present HEAD & SCALP: normal to inspection and normocephalic NOSE: Normal external nose present TYMPANIC MEMBRANE: TM's normal bilaterally MOUTH: Normal oral and palatal mucosa present THROAT: posterior oropharynx normal Eye: GENERAL EYE: appearance normal, both eyes and all related structures Neck/C-Spine: COMMON NORMALS: full ROM Lymph: LYMPHATIC: no lymphadenopathy noted Chest: OTHER: Mild anterior chest wall tenderness. Resp: COMMON NORMALS: normal respiratory effort EFFORT & INSPECTION: Yes able to speak in complete sentences Cardio: COMMON NORMALS: regular rate and regular rhythm RATE: regular rate RHYTHM: regular rhythm GI: COMMON NORMALS: Soft to palpation and non-tender PALPATION: Yes Soft to palpation, No Guarding due to palpation present (GI) and No Rebound tenderness present : COMMON NORMALS: Yes no CVA tenderness BLADDER/KIDNEY EXAM: Yes no CVA tenderness and Yes CVA tenderness (Mild on percussion) on the left Back/Pelvis: COMMON NORMALS: no CVA tenderness and thoracic and lumbar spine normal to inspection GENERAL BACK: Yes CVA tenderness (Mild on percussion) Extremity: COMMON NORMALS: normal to inspection Neuro: COMMON NORMALS: patient oriented x3 and moves all extremities Psych: COMMON NORMALS: mental status grossly normal and cooperative Skin: COMMON NORMALS: no rashes or lesions noted GENERAL SKIN EXAM: no rashes or lesions noted Course ED course: 2340, 0.1 mg clonidine was given to patient due to elevation in his blood pressure. Vital Signs: Vital signs: Vital Signs Temperature 98.2 F 11/04/21 21:27 Pulse Rate 111 H 11/04/21 21:27 Respiratory Rate 18 11/04/21 21:27 Blood Pressure 150/108 11/04/21 21:27 Pulse Oximetry 96 11/04/21 21:27 MDM - Nausea/Vomiting/Diarrhea MDM Narrative: Medical decision making narrative: Patient comes in today for complaints of nausea and vomiting for 2 days. On exam oral mucosa is mildly dry, abdomen soft nontender. Respirations are even lungs are clear to auscultation. Patient does have some muscle tenderness on palpation of the mid back and the anterior chest wall. Differential diagnosis includes but not limited to gastroenteritis, dehydration, viral illness. Laboratory values were unremarkable. Urinalysis was clear. Patient was given 1 L of IV fluids with Zofran for nausea and ketorolac for muscle aches. Patient had improved symptoms. Patient be continued with Zofran at home as needed for nausea and vomiting. Patient can use Tylenol or ibuprofen for discomfort. Patient reported understanding of care plan and need for follow-up or return to the ER. Lab Data: Labs: Lab Results 11/04/21 11/04/21 11/04/21 22:08 22:08 22:08 WBC 9.3 10^3/uL 10^3/ uL (4.0-10.0) RBC 5.19 10^6/uL 10^6 /uL (4.1-5.3) Hgb 15.4 g/dL g/dL (11.7-16.6) Hct 43.6 % % (42.0-52.0) MCV 84.0 fl fl (80-94) MCH 29.7 pg pg (28.0-34.0) MCHC 35.3 g/dL g/dL (30.0-36.0) RDW 12.1 % % (12.1-15.1) Plt Count 262 10^3/cmm 10^3 /cmm (130-400) MPV 9.0 fL fL (7.4-10.4) Neut % (Auto) 54.7 % % Lymph % (Auto) 34.8 % % Mellette % (Auto) 7.1 % % Eos % (Auto) 2.7 % % Baso % (Auto) 0.5 % % Neut # (Auto) 5.06 10^3/uL 10^3 /uL (1.8-7.7) Lymph # (Auto) 3.2 10^3/uL 10^3/ uL (0.8-4.8) Mellette # (Auto) 0.7 10^3/uL 10^3/ uL (0.2-0.9) Eos # (Auto) 0.3 10^3/uL 10^3/ uL (0.0-0.8) Baso # (Auto) 0.1 10^3/uL 10^3/ uL (0.0-0.1) Nucleated RBC % (a uto) 0 % % Nucleated RBCs # 0.0 /100WBC /100W BC Sodium 138 mmol/L mmol/L (136-145) Potassium 4.0 mmol/L mmol/L (3.5-5.1) Chloride 106 mmol/L mmol/L (98-107) Carbon Dioxide 18 mmol/L L mmol/ L (22-29) Anion Gap 18.0 (5-19) BUN 13 mg/dL mg/dL (6-20) Creatinine 0.9 mg/dL mg/dL (0.7-1.2) GFR Calculation 95.0 mL/min mL/mi n (90-130) Glucose 115 mg/dL mg/dL (65-115) Calculated Osmolal ity 287 mOsm/kg mOsm/ kg (285-295) Calcium 8.7 mg/dL mg/dL (8.5-10.5) Total Bilirubin 0.2 mg/dL mg/dL (0.15-1.2) AST 33 U/L U/L (0-40) ALT 59 U/L H U/L (0-41) Alkaline Phosphata se 66 IU/L IU/L (40-130) Troponin T Baselin e 7 ng/L ng/L (0-15) Total Protein 7.5 g/dL g/dL (6.6-8.7) Albumin 4.6 g/dL g/dL (3.5-5.2) Globulin 2.9 g/dL g/dL (1.3-4.6) Lipase 43 U/L U/L (13-60) Discharge Plan Discharge Patient Disposition: Home Clinical Impression: Gastroenteritis Condition: Stable Prescriptions: Continued ondansetron 4 mg tablet,disintegrating 4 mg PO Q6H PRN (Reason: nausea and vomiting) Qty: 10 RF: 0 No Action lisinopril 10 mg tablet 10 mg PO DAILY RF: 0 hydrochlorothiazide 12.5 mg capsule 12.5 mg PO DAILY RF: 0 naproxen [Naprosyn] 500 mg tablet 500 mg PO BID PRN (Reason: pain) RF: 0 trazodone 100 mg tablet 100 mg PO .HS Qty: 30 RF: 1 fluoxetine 20 mg capsule 40 mg PO BEDTIME 30 Days Qty: 60 RF: 1 ibuprofen 800 mg tablet 800 mg PO Q8H PRN (Reason: pain) Qty: 12 RF: 0 Discharge Orders: Discharge ED (Routine); Ordered 11/04/21 Ordered By: Heladio Lopez Discharge Diet: Usual diet Discharge Activity: Increase activity as tolerated Patient Instructions: Acute Nausea and Vomiting (ED) Activity Restrictions/Additional Instructions: Home and rest. Continue drinking plenty of fluids with sips of water and juices. Increase diet as tolerated. Use Zofran, ondansetron, every 6 hours 1 tablet as needed for nausea. Follow-up with primary care as needed. Return to the ER for worsening symptoms, high fever greater than 100.4, or blood in vomit or stool. Coding Level of Care Code ED Machine Tool Mechanic for Aby 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
[2021-11-04 22:39] LABS: Alanine Aminotransferase 59 U/L (0-41); Albumin Level 4.6 g/dL (3.5-5.2); Alkaline Phosphatase 66 IU/L (40-130); Aspartate Amino Transferase 33 U/L (0-40); Blood Urea Nitrogen 13 mg/dL (6-20); Calcium 8.7 mg/dL (8.5-10.5); Carbon Dioxide 18 mmol/L (22-29); Chloride 106 mmol/L (98-107); Globulin 2.9 g/dL (1.3-4.6); Glucose 115 mg/dL (65-115); Lipase 43 U/L (13-60); Osmolality Calculated 287 mOsm/kg (285-295); Sodium 138 mmol/L (136-145); Total Bilirubin 0.2 mg/dL (0.15-1.2); Total Protein 7.5 g/dL (6.6-8.7); Troponin(5th) Baseline 7 ng/L (0-15)
[2021-11-04] MEDS: ondansetron 2 mg/ML SDV 2 mL 4 MG IVP (23:05)
[2021-11-04] MEDS: ketorolac 30 mg/mL INJ IVP (23:05)
[2021-11-04] MEDS: famotidine 20 mg/2 mL INJ 40 MG IVP (23:07)
[2021-11-04] MEDS: sodium chloride 0.9% 1,000 ML 999 ML IV (23:09)
[2021-11-04 23:46] VITALS: BP 162/124; O2SAT 96
[2021-11-04 23:59] VITALS: BP 162/124
[2021-11-04] MEDS: cloNIDine 0.1 mg Tablet PO (23:59)
[2021-11-05 00:08] VITALS: BP 152/112; PULSE 87; RESP 18; O2SAT 95
[2021-11-05 00:54] LABS: SARS Covid-2 Antigen Negative (Negative)
== END 2021-11-05 01:09 | disposition home or self-care (01) ==
PROVIDERS: Emergency Medicine; Emergency Provider Nurse Practitioner Family
DX: K52.9 Noninfective gastroenteritis and colitis, unspecified (principal); Z20.822 Contact with and (suspected) exposure to COVID-19
CPT/HCPCS: 71045; 80053; 83690; 84484; 85025; 87426; 93005; 96361; 96374; 96375; 99284; J1885; J2405; J3490; J7030

== ENCOUNTER 2021-11-06 19:36 | Inpatient (IN) | payer MEDICAID, SELFPAY ==
[2021-11-06 19:47] VITALS: BP 168/116; PULSE 84; RESP 18; O2SAT 98
--- NOTE | 2021-11-06 19:48 | ED.C_ITS ---
HPI - Psych General: Chief Complaint: Psychiatric Symptoms Stated Complaint: SI Time Seen by Provider: 11/06/21 19:39 Source: patient and EMS Mode of arrival: EMS Limitations: no limitations History of Present Illness: HPI Narrative: 36-year-old male who is here from [facility] with suicidal ideation. He states that he has been having increasing depression been having thoughts of suicide all day he appears very anxious and fidgety here he states he has a plan to kill himself by jumping out in traffic. He does have a history of psychiatric issues along with alcoholism denies any alcohol intake today or recently he denies any worsening improving factors. Associated symptoms: Reports depression and suicidal ideation Review of Systems Const: Denies: fever(s), chills, body aches or change in appetite Eyes: Denies: blurry vision or eye discomfort ENMT: Denies: throat pain or dental pain Card: Denies: chest pain Resp: Denies: dyspnea GI: Denies: abdominal pain, nausea, vomiting or diarrhea : Denies: dysuria Musc: Denies: neck pain or back pain Skin/Breast: Denies: rash Neuro: Denies: headache(s) Psych: Reports: depression and suicidal ideation Kb/Lymph: Denies: easy bruising All/Imm: Denies: urticaria PFSH ED PFSH: Medical History Alcohol dependence, in remission Cannabis dependence, uncomplicated Opioid dependence, in remission Other stimulant dependence, in remission Post-traumatic stress disorder, chronic Psychiatric care Physical Exam Const: COMMON NORMALS: no acute distress, patient oriented x3 and healthy appearing HENMT: COMMON NORMALS: normocephalic and atraumatic HEAD & SCALP: normoceph alic and atraumatic Eye: COMMON NORMALS: Equal, round and reactive pupils present and EOMs intact bilaterally PUPIL: Yes Equal, round and reactive pupils present Neck/C-Spine: COMMON NORMALS: full ROM and supple Chest: COMMONS NORMALS: normal inspection of the chest and normal palpation of entire chest wall Resp: COMMON NORMALS: normal respiratory effort, No retractions, No use of accessory muscles and clear to auscultation bilaterally AUSCULTATION: clear to auscultation bilaterally Cardio: COMMON NORMALS: regular rate, regular rhythm and No murmurs present (Cardio) RATE: regular rate RHYTHM: regular rhythm GI: COMMON NORMALS: Normal to inspection, nondistended, normoactive bowel sounds present, Soft to palpation, non-tender and no masses PALPATION: Yes Soft to palpation Extremity: COMMON NORMALS: normal to inspection and full ROM Neuro: COMMON NORMALS: patient oriented x3, moves all extremities and no focal motor deficits Psych: COMMON NORMALS: mental status grossly normal, Normal thought process present and cooperative MOOD & AFFECT: Yes anxious THOUGHT PROCESS: Normal thought process present THOUGHT CONTENT: Yes Suicidality present Skin: COMMON NORMALS: no rashes or lesions noted and no wounds GENERAL SKIN EXAM: no rashes or lesions noted Course Vital Signs: Vital signs: Vital Signs Pulse Rate 84 11/06/21 19:55 Respiratory Rate 18 11/06/21 19:55 Blood Pressure 156/109 11/06/21 19:55 Pulse Oximetry 98 11/06/21 19:55 MDM - Psych MDM Narrative: Medical decision making narrative: Patient presents here with suicidal ideation with plans to kill himself by overdose patient is well- appearing here is medically cleared did have some chest pain and believes due to anxiety his troponin EKG here are normal I spoke to psychiatrist will admit the psychiatric smiley. Lab Data: Labs: Lab Results 11/06/21 11/06/21 11/06/21 20:13 20:13 20:13 WBC 9.9 10^3/uL 10^3/ uL (4.0-10.0) RBC 5.03 10^6/uL 10^6 /uL (4.1-5.3) Hgb 14.8 g/dL g/dL (11.7-16.6) Hct 43.4 % % (42.0-52.0) MCV 86.3 fl fl (80-94) MCH 29.4 pg pg (28.0-34.0) MCHC 34.1 g/dL g/dL (30.0-36.0) RDW 12.0 % L % (12.1-15.1) Plt Count 252 10^3/cmm 10^3 /cmm (130-400) MPV 8.8 fL fL (7.4-10.4) Neut % (Auto) 60.1 % % Lymph % (Auto) 29.8 % % [place] % (Auto) 6.9 % % Eos % (Auto) 2.4 % % Baso % (Auto) 0.7 % % Neut # (Auto) 5.94 10^3/uL 10^3 /uL (1.8-7.7) Lymph # (Auto) 2.9 10^3/uL 10^3/ uL (0.8-4.8) [place] # (Auto) 0.7 10^3/uL 10^3/ uL (0.2-0.9) Eos # (Auto) 0.2 10^3/uL 10^3/ uL (0.0-0.8) Baso # (Auto) 0.1 10^3/uL 10^3/ uL (0.0-0.1) Nucleated RBC % (a uto) 0 % % Nucleated RBCs # 0.0 /100WBC /100W BC Sodium 137 mmol/L mmol/L (136-145) Potassium 3.9 mmol/L mmol/L (3.5-5.1) Chloride 105 mmol/L mmol/L (98-107) Carbon Dioxide 22 mmol/L mmol/L (22-29) Anion Gap 13.9 (5-19) BUN 15 mg/dL mg/dL (6-20) Creatinine 0.9 mg/dL mg/dL (0.7-1.2) GFR Calculation 95.0 mL/min mL/mi n (90-130) Glucose 103 mg/dL mg/dL (65-115) Calculated Osmolal ity 285 mOsm/kg mOsm/ kg (285-295) Calcium 8.6 mg/dL mg/dL (8.5-10.5) Total Bilirubin 0.3 mg/dL mg/dL (0.15-1.2) AST 36 U/L U/L (0-40) ALT 58 U/L H U/L (0-41) Alkaline Phosphata se 70 IU/L IU/L (40-130) Troponin T Gen 5 n g/L 7 ng/L ng/L (0-15) Total Protein 7.7 g/dL g/dL (6.6-8.7) Albumin 4.4 g/dL g/dL (3.5-5.2) Globulin 3.3 g/dL g/dL (1.3-4.6) Salicylates < 0.3 mg/dL L mg/ dL (3-10) Urine Opiates Scre en Acetaminophen < 5.0 ug/mL L ug/ mL (10-30) Ur Barbiturates Sc reen Ur Phencyclidine S crn Ur Amphetamines Sc reen U Benzodiazepines Scrn Urine Cocaine Scre en U Marijuana (THC) Screen Ethyl Alcohol < 10 mg/dL mg/dL (0-10) 11/06/21 20:26 WBC RBC Hgb Hct MCV MCH MCHC RDW Plt Count MPV Neut % (Auto) Lymph % (Auto) [place] % (Auto) Eos % (Auto) Baso % (Auto) Neut # (Auto) Lymph # (Auto) [place] # (Auto) Eos # (Auto) Baso # (Auto) Nucleated RBC % (a uto) Nucleated RBCs # Sodium Potassium Chloride Carbon Dioxide Anion Gap BUN Creatinine GFR Calculation Glucose Calculated Osmolal ity Calcium Total Bilirubin AST ALT Alkaline Phosphata se Troponin T Gen 5 n g/L Total Protein Albumin Globulin Salicylates Urine Opiates Scre en Negative ng/mL ng /mL (Negative) Acetaminophen Ur Barbiturates Sc reen Negative ng/mL ng /mL (Negative) Ur Phencyclidine S crn Negative ng/mL ng /mL (Negative) Ur Amphetamines Sc reen Negative ng/mL ng /mL (Negative) U Benzodiazepines Scrn Negative ng/mL ng /mL (Negative) Urine Cocaine Scre en Negative ng/mL ng /mL (Negative) U Marijuana (THC) Screen Negative ng/mL ng /mL (Negative) Ethyl Alcohol EKG Data^: EKG 1: Attestation: I personally reviewed and interpreted this EKG as follows: EKG interpretation date: 11/06/21 EKG interpretation time: 21:07 Interpretation: nsr hr [address] or t wave abnormalities qrs 109 qtc 397 Discharge Plan Discharge Admit Provider: Nasir Dexter Coding Level of Care Code ED Cut Off Machine Unloader for Chg 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
[2021-11-06 19:55] VITALS: BP 156/109; PULSE 84; RESP 18; O2SAT 98; BMI 43.7
[2021-11-06 20:00] VITALS: BP 156/109; PULSE 84; RESP 18; O2SAT 98
[2021-11-06] MEDS: LORazepam 2 mg Tablet PO (20:10)
[2021-11-06 20:19] LABS: Basophils # 0.1 10^3/uL (0.0-0.1); Basophils % 0.7 %; Eosinophils # 0.2 10^3/uL (0.0-0.8); Eosinophils % 2.4 %; Hematocrit 43.4 % (42.0-52.0); Hemoglobin 14.8 g/dL (11.7-16.6); Lymphocytes # 2.9 10^3/uL (0.8-4.8); Lymphocytes % 29.8 %; Mean Corpuscular HGB Conc 34.1 g/dL (30.0-36.0); Mean Corpuscular Hemoglobin 29.4 pg (28.0-34.0); Mean Corpuscular Volume 86.3 fl (80-94); Mean Platelet Volume 8.8 fL (7.4-10.4); Monocytes # 0.7 10^3/uL (0.2-0.9); Monocytes % 6.9 %; Neutrophils # 5.94 10^3/uL (1.8-7.7); Neutrophils % 60.1 %; Nucleated Red Blood Cells % 0 %; Platelet Count 252 10^3/cmm (130-400); Red Blood Count 5.03 10^6/uL (4.1-5.3); White Blood Count 9.9 10^3/uL (4.0-10.0)
[2021-11-06 20:42] LABS: Amphetamines Screen Urine Negative (Negative); Barbiturates Screen Urine Negative (Negative); Benzodiazepines Screen Urine Negative (Negative); Cocaine Screen Urine Negative (Negative); Opiate Screen Urine Negative (Negative); PCP Screen Urine Negative (Negative); THC Screen Urine Negative (Negative)
--- NOTE | 2021-11-06 20:56 | ECG_ITS ---
[facility] Test Date: 2021-11-06 Pat Name: Wicho Lugo Department: Room: Gender: Male Chief Concierge: : 1985 Requested By: Bethany Carl Order Number: [id number] Sil MD: Bharat Payton M.D. Measurements Intervals [place] Rate: 94 P: 60 DE: 175 QRS: 41 QRSD: 109 T: 27 QT: 346 QTc: 433 Interpretive Statements SINUS RHYTHM POSSIBLE ANTERIOR MYOCARDIAL INFARCTION , OF INDETERMINATE AGE [30 ms Q WAVE IN V3/V4, OR R < 0.2 mV IN V4] Compared to ECG 11/04/2021 21:34:48 Myocardial infarct finding now present Sinus tachycardia no longer present Electronically Signed On 11-08-2021 7:39:07 OIL PAINT SHADER by Bharat Payton M.D. [id number]
[2021-11-06 21:06] LABS: Alanine Aminotransferase 58 U/L (0-41); Albumin Level 4.4 g/dL (3.5-5.2); Alkaline Phosphatase 70 IU/L (40-130); Anion Gap 13.9 (5-19); Aspartate Amino Transferase 36 U/L (0-40); Blood Urea Nitrogen 15 mg/dL (6-20); Calcium 8.6 mg/dL (8.5-10.5); Carbon Dioxide 22 mmol/L (22-29); Chloride 105 mmol/L (98-107); Globulin 3.3 g/dL (1.3-4.6); Glucose 103 mg/dL (65-115); Osmolality Calculated 285 mOsm/kg (285-295); Potassium 3.9 mmol/L (3.5-5.1); Sodium 137 mmol/L (136-145); Total Bilirubin 0.3 mg/dL (0.15-1.2); Total Protein 7.7 g/dL (6.6-8.7)
[2021-11-06 21:07] LABS: Acetaminophen < 5.0 ug/mL (10-30); Alcohol Level < 10 mg/dL (0-10); Salicylate < 0.3 mg/dL (3-10)
[2021-11-06 21:41] LABS: Troponin T (5th) Once 7 ng/L (0-15)
[2021-11-06 21:51] VITALS: BP 156/109; PULSE 84; RESP 18; O2SAT 98
[2021-11-06 22:59] VITALS: BP 130/87; PULSE 106; RESP 18; TEMP 36.9; O2SAT 97
--- NOTE | 2021-11-06 23:50 | PC.ADMIT ---
2208 Chastity Aguirre Admission Note: The patient,Wicho Lugo,36 y/o, was given written information regarding hospital policies, unit procedures and contact persons. Patient's smoking status: . Vital Signs - 8 hr 11/06/21 19:47 11/06/21 19:55 11/06/21 20:00 Pulse Rate 84 84 84 Respiratory Rate 18 18 18 Blood Pressure 168/116 156/109 156/109 Pulse Oximetry 98 98 98 11/06/21 21:51 Pulse Rate 84 Respiratory Rate 18 Blood Pressure 156/109 Pulse Oximetry 98 Patient is poor historian. Poor eye contact with flat affect. Patient states he resides at [facility] and he asked them to call EMS tonight because he was feeling suicidal. Patient reports I am always thinking of ways to kill myself. Patient did not state the cause of his depression/SI. He does state that he has not been taking any of his medications other than his Lisinopril. Patient rates depression and anxiety both 9. States he is currently having SI but contracts for safety. Skin assessment is unremarkable. Patient given snack then retired to bed. Will continue to monitor and follow plan of care. Q 15 min safety checks per protocol.
[2021-11-07 06:00] VITALS: BP 114/77; PULSE 89; RESP 16; TEMP 36.8; O2SAT 98
[2021-11-07] MEDS: lisinopril 10 mg Tablet PO (08:58)
[2021-11-07] MEDS: acetaminophen 325 mg Tablet 650 MG PO ×3 (08:58→21:13)
[2021-11-07] MEDS: nicotine 2 mg Gum BUCCAL ×5 (08:58→20:27)
[2021-11-07 13:55] VITALS: BP 138/92; PULSE 101; RESP 18; TEMP 36.6; O2SAT 95
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
[2021-11-07 20:31] VITALS: BP 144/104; PULSE 106; RESP 16; TEMP 36.6; O2SAT 96
[2021-11-07] MEDS: OLANZapine 5 mg ODT PO (21:05)
[2021-11-07] MEDS: trazodone 50 mg Tablet PO (21:05)
[2021-11-07] MEDS: hyDROXYzine 25 mg Capsule 50 MG PO (21:05)
[2021-11-07] MEDS: haloperidol 5 mg Tablet PO (22:24)
[2021-11-08 06:00] VITALS: BP 113/70; PULSE 69; RESP 16; TEMP 36.9; O2SAT 97
[2021-11-08] MEDS: nicotine 2 mg Gum BUCCAL ×4 (08:55→17:38)
[2021-11-08] MEDS: lisinopril 10 mg Tablet PO (08:55)
--- NOTE | 2021-11-08 09:17 | W.PM.NPUPNS ---
Subjective NPU Subjective: Interval history: Patient presents today reporting that he is ready to make some medication adjustments. We discussed the risk-benefit and alternatives of starting Risperdal 1 mg p.o. nightly and titrating it to effect as well as starting Lamictal 25 mg daily with a discussion for the side effects including Ashley-Allan syndrome and he understood agreed to proceed as is documented in this note. Mental Status Exam MSE Comments: This is an obese versus morbidly obese white male in hospital scrubs with adequate grooming and eye contact. No abnormal movements except for mild psychomotor retardation. Cooperative with exam in no acute distress. Speech was slightly decreased rate and volume. Mood described as depressed, and irritable, affect slightly subdued. Thought process organized. Thought content: Patient denied suicidal ideation and denied homicidal ideation, there were no delusions reported or noted, he denied any auditory or visual hallucinations. Attention and concentration were intact and memory appeared reliable but none were formally tested. He is alert and oriented x3. Insight and judgment appear fair, and impulse control is limited. Vitals/I&O/Wt Last Vital Signs Temp 98.4 F 11/08/21 06:00 Pulse 69 11/08/21 06:00 Resp 16 11/08/21 06:00 BP 113/70 11/08/21 06:00 Pulse Ox 97 11/08/21 06:00 Weight last 48 hrs Weight 158.757 kg Data NPU : 11/06/21 20:13 11/06/21 20:13 A&P Additional A&P Information (1) Gastroenteritis: (2) Post-traumatic stress disorder, chronic: (3) Opioid dependence, in remission: (4) Alcohol dependence, in remission: (5) Other stimulant dependence, in remission: (6) Cannabis dependence, uncomplicated: (7) Depression: Additional A&P Information This is a 36-year-old white male with a long history of trauma addiction and suicidal thoughts who presents with addiction in remission and recent psychosocial stressors from a break-up leading to having current suicidal thoughts off of medication wanting to get back into treatment. 1. Continue current medication. Start Risperdal 1 mg p.o. nightly and titrate to effect. Start Lamictal 25 mg p.o. daily and increase the medication by 25 mg a week 200 mg and reevaluate. 2. Continue every 15 minute checks for safety. 3. Encourage individual, group and milieu therapies. 4. Encourage sober living treatment after discharge at the highest level of care to which he is willing to commit. Involuntary Hold Information 96 Hour Hold: 96 Hour Involuntary Admission: Yes 96 Hour Hold Ending Date: 11/12/21 96 Hour Hold Ending Time: 20:29 Attestations NPU Medical Necessity Statement*: Inpatient hospitalization is medically necessary and the clinically appropriate intervention at this time. We will monitor medications and make changes as indicated. Likely length of stay 2-4 days. Coding Level of Care Code Acute Public Message Service Supervisor for Aby Dixon
[2021-11-08 14:00] VITALS: BP 125/81; PULSE 101; RESP 17; TEMP 36.9; O2SAT 99
[2021-11-08] MEDS: acetaminophen 325 mg Tablet 650 MG PO (16:03)
[2021-11-08] MEDS: lamoTRIgine 25 mg Tablet PO (17:35)
[2021-11-08 20:44] VITALS: BP 155/98; PULSE 86; RESP 17; TEMP 36.6; O2SAT 98
[2021-11-08] MEDS: risperiDONE 1 mg Tablet PO (21:04)
[2021-11-08] MEDS: trazodone 50 mg Tablet PO (21:05)
[2021-11-09 06:00] VITALS: BP 122/74; PULSE 76; RESP 21; TEMP 37; O2SAT 98; BMI 43.7
[2021-11-09] MEDS: lamoTRIgine 25 mg Tablet PO (09:29)
[2021-11-09] MEDS: lisinopril 10 mg Tablet PO ×2 (09:29→13:51)
[2021-11-09] MEDS: nicotine 2 mg Gum BUCCAL ×4 (12:42→21:40)
[2021-11-09] MEDS: acetaminophen 325 mg Tablet 650 MG PO ×2 (12:49→18:46)
[2021-11-09 14:00] VITALS: BP 172/114; PULSE 115; RESP 20; TEMP 36.5; O2SAT 98
--- NOTE | 2021-11-09 14:16 | P.NPUPN_ITS ---
Subjective NPU Subjective: Interval history: Patient presents today reporting that things are going a in general though he is struggling with the acuity on the unit and all the yelling and screaming especially from people that he feels are just being jerks and not really sick. He reports that he did okay with the Risperdal last night and we discussed the risk benefits and alternatives of increasing that to 2 mg p.o. nightly and we once again reviewed the plan for the Lamictal with a weekly titration to avoid the risk for Ashley-Allan syndrome. Mental Status Exam MSE Comments: This is an obese versus morbidly obese white male in hospital scrubs with adequate grooming and eye contact. No abnormal movements except for mild psychomotor retardation. Cooperative with exam in no acute distress. Speech was slightly decreased rate and volume. Mood described as about the same, and irritable, affect slightly subdued. Thought process organized. Thought content: Patient denied suicidal ideation and denied homicidal ideation, there were no delusions reported or noted, he denied any auditory or visual hallucinations. Attention and concentration were intact and memory appeared reliable but none were formally tested. He is alert and oriented x3. Insight and judgment appear fair, and impulse control is limited. Vitals/I&O/Wt Last Vital Signs Temp 97.7 F 11/09/21 14:00 Pulse 115 H 11/09/21 14:00 Resp 20 H 11/09/21 14:00 BP 172/114 11/09/21 14:00 Pulse Ox 98 11/09/21 14:00 Weight last 48 hrs Weight 158.757 kg Data NPU : 11/06/21 20:13 11/06/21 20:13 A&P Additional A&P Information (1) Gastroenteritis: (2) Post-traumatic stress disorder, chronic: (3) Opioid dependence, in remission: (4) Alcohol dependence, in remission: (5) Other stimulant dependence, in remission: (6) Cannabis dependence, uncomplicated: (7) Depression: Additional A&P Information This is a 36-year-old white male with a long history of trauma addiction and suicidal thoughts who presents with addiction in remission and recent psychosocial stressors from a break-up leading to having current suicidal thoughts off of medication wanting to get back into treatment. 1. Continue current medication. Risperdal 2 mg p.o. nightly. Started Lamictal 11/08/2021, 25 mg p.o. daily and increase the medication by 25 mg a week until you reach 100 mg and reevaluate. 2. Continue every 15 minute checks for safety. 3. Encourage individual, group and milieu therapies. 4. Encourage sober living treatment after discharge at the highest level of care to which he is willing to commit. Involuntary Hold Information 96 Hour Hold: 96 Hour Involuntary Admission: Yes 96 Hour Hold Ending Date: 11/12/21 96 Hour Hold Ending Time: 20:29 Attestations NPU Medical Necessity Statement*: Inpatient hospitalization is medically necessary and the clinically appropriate intervention at this time. We will monitor medications and make changes as indicated. Likely length of stay 2-4 days. Coding Level of Care Code Acute Architecture Instructor for Aby Dixon
[2021-11-09] MEDS: hyDROXYzine 25 mg Capsule 50 MG PO ×2 (14:48→21:18)
--- NOTE | 2021-11-09 14:50 | PC.NURSE ---
Pt anxious and pacing. Pt given 50mg Vistaril.
[2021-11-09 20:42] VITALS: BP 154/108; PULSE 105; RESP 17; TEMP 36.9; O2SAT 99
[2021-11-09] MEDS: LORazepam 2 mg/mL INJ 1 mL IM (21:00)
[2021-11-09] MEDS: risperiDONE 1 mg Tablet 2 MG PO (21:00)
[2021-11-09] MEDS: trazodone 50 mg Tablet PO (21:18)
[2021-11-10 06:00] VITALS: BP 154/70; PULSE 84; RESP 20; TEMP 36.8; O2SAT 98
[2021-11-10] MEDS: lamoTRIgine 25 mg Tablet PO (09:00)
[2021-11-10] MEDS: hyDROXYzine 25 mg Capsule 50 MG PO ×3 (09:01→22:48)
[2021-11-10] MEDS: nicotine 2 mg Gum BUCCAL ×3 (09:01→21:24)
[2021-11-10] MEDS: lisinopril 20 mg Tablet PO (09:01)
--- NOTE | 2021-11-10 13:05 | NPU.GN ---
[facility] Group Topic:Noah Coleman / Discussion General Mood of Group:Wicho did attend and participate in group today. Hygiene was ok and he was social with others .
[2021-11-10 14:00] VITALS: BP 157/104; PULSE 101; RESP 20; TEMP 36.3; O2SAT 99
--- NOTE | 2021-11-10 14:08 | P.NPUPN_ITS ---
Subjective NPU Subjective: Interval history: Patient presents today reporting that he still having some of the symptoms we discussed previously. He is optimistic that he will be at a point where he can discharge the next couple of days of the medication in his system. We discussed the possibility of increasing his Risperdal at bedtime tomorrow for him to consider a daytime dose of Risperdal b ut he is considering this. We also reviewed the plan for the Lamictal and he understood and agreed to proceed as is documented in this note. Mental Status Exam MSE Comments: This is an obese versus morbidly obese white male in hospital scrubs with adequate grooming and eye contact. No abnormal movements except for mild psychomotor retardation. Cooperative with exam in no acute distress. Speech was slightly decreased rate and volume. Mood described as about the same, and irritable, affect slightly subdued. Thought process organized. Thought content: Patient denied suicidal ideation and denied homicidal ideation, there were no delusions reported or noted, he denied any auditory or visual irma lucinations. Attention and concentration were intact and memory appeared reliable but none were formally tested. He is alert and oriented x3. Insight and judgment appear fair, and impulse control is limited. Vitals/I&O/Wt Last Vital Signs Temp 98.3 F 11/10/21 06:00 Pulse 84 11/10/21 06:00 Resp 20 H 11/10/21 06:00 BP 154/70 11/10/21 06:00 Pulse Ox 98 11/10/21 06:00 Weight last 48 hrs Weight 158.757 kg Data NPU : 11/06/21 20:13 11/06/21 20:13 A&P Additional A&P Information (1) Gastroenteritis: (2) Post-traumatic stress disorder, chronic: (3) Opioid dependence, in remission: (4) Alcohol dependence, in remission: (5) Other stimulant dependence, in remission: (6) Cannabis dependence, uncomplicated: (7) Depression: Additional A&P Information This is a 36-year-old white male with a long history of trauma addiction and suicidal thoughts who presents with addiction in remission and recent psychosocial stressors from a break-up leading to having current suicidal thoughts off of medication wanting to get back into treatment. 1. Continue current medication. Increase Risperdal to 3 mg p.o. nightly. And possibly add a 1 mg dose in the morning. Started Lamictal 11/08/2021, 25 mg p.o. daily and increase the medication by 25 mg a week until you reach 100 mg and reevaluate. 2. Continue every 15 minute checks for safety. 3. Encourage individual, group and milieu therapies. 4. Encourage sober living treatment after discharge at the highest level of care to which he is willing to commit. Involuntary Hold Information 96 Hour Hold: 96 Hour Involuntary Admission: Yes 96 Hour Hold Ending Date: 11/12/21 96 Hour Hold Ending Time: 20:29 Attestations NPU Medical Necessity Statement*: Inpatient hospitalization is medically necessary and the clinically appropriate intervention at this time. We will monitor medications and make changes as indicated. Likely length of stay 1-3 days. Coding Level of Care Code Acute Quality Assurance Calibrator for Aby Dixon
--- NOTE | 2021-11-10 15:06 | PC.NURSE ---
Pt pacing and states his anxiety is increasing. Pt given Vistaril 50mg PO without complication.
[2021-11-10] MEDS: OLANZapine 5 mg ODT PO (16:11)
[2021-11-10 20:08] VITALS: BP 131/90; PULSE 88; RESP 19; TEMP 37.2; O2SAT 98
[2021-11-10] MEDS: risperiDONE 1 mg Tablet 2 MG PO (21:25)
[2021-11-10] MEDS: trazodone 50 mg Tablet PO (21:26)
--- NOTE | 2021-11-10 21:30 | PC.NURSE ---
pt requested sleep med, trazodone 50mg po given.
--- NOTE | 2021-11-10 22:50 | PC.NURSE ---
pt still c/o not being able to sleep, vistaril 50mg po for anxiety given.
--- NOTE | 2021-11-11 | PC.NURSE ---
pt resting quietly with both eyes closed.
[2021-11-11] MEDS: acetaminophen 325 mg Tablet 650 MG PO (05:02)
[2021-11-11 06:06] VITALS: BP 140/90; PULSE 102; RESP 18; TEMP 36.7; O2SAT 100
[2021-11-11] MEDS: ibuprofen 800 mg tablet PO (07:01)
[2021-11-11] MEDS: nicotine 2 mg Gum BUCCAL ×4 (07:03→13:38)
[2021-11-11] MEDS: hyDROXYzine 25 mg Capsule 50 MG PO (09:09)
[2021-11-11] MEDS: lisinopril 20 mg Tablet PO (09:10)
[2021-11-11] MEDS: lamoTRIgine 25 mg Tablet PO (09:10)
[2021-11-11] MEDS: risperiDONE 1 mg Tablet PO (12:40)
--- NOTE | 2021-11-11 13:23 | NPU.GN ---
[facility] Topic Maguiine Barrel General Mood of Group: Wicho did attend group and participated.
[2021-11-11 14:00] VITALS: BP 152/94; PULSE 105; RESP 20; TEMP 36.2; O2SAT 97
--- NOTE | 2021-11-11 14:32 | W.PM.NPUDCS ---
Diagnoses at Discharge Discharge Diagnosis (1) Gastroenteritis: Status: Inactive (2) Post-traumatic stress disorder, chronic: Status: Acute (3) Opioid dependence, in remission: Status: Acute (4) Alcohol dependence, in remission: Status: Acute (5) Other stimulant dependence, in remission: Status: Acute (6) Cannabis dependence, uncomplicated: Status: Acute (7) Depression: Status: Acute Qualifiers: Active/Remission status: currently active Depression Type: major depressive disorder Major depression episode severity: severe Major depression recurrence: recurrent Psychotic features: without psychotic features Qualified Code(s): F33.2 - Major depressive disorder, recurrent severe without psychotic features Reason for Visit Reason for Visit: SI Hospital Course Hospital Course He slowly acclimated to the individual, group and milieu therapies provided. He is well-known to this auto service writer in the unit and presented like he generally does reporting that he needs to get his overall wellness together etc. We made some adjustments in his medication and he had significant improvement. He was able to contract for safety outside the hospital prior to discharge. During the hospitalization, patient had routine laboratory studies which were within normal limits except for few outliers. Additionally there was a general medical evaluation which was also within normal limits and revealed no new acute processes. Discharge Summary: At the time of discharge, he denied psychosis or lethality. Mood and anxiety were well managed. Patient endorsed a plan to avoid all drugs of abuse and follow-up with the aftercare recommendations of the treatment team. Patient was evaluated and deemed to be absent credible lethality, and had achieved the maximum benefit from an inpatient hospitalization, so was discharged. Involuntary Hold Information 96 Hour Hold: 96 Hour Involuntary Admission: Yes 96 Hour Hold Ending Date: 11/12/21 96 Hour Hold Ending Time: 20:29 Mental Status Exam MSE Comments: This is an obese versus morbidly obese white male in hospital scrubs with adequate grooming and eye contact. No abnormal movements except for mild psychomotor retardation. Cooperative with exam in no acute distress. Speech was more normal rate and volume. Mood described as better, affect congruent. Thought process organized. Thought content: Patient denied suicidal ideation and denied homicidal ideation, there were no delusions reported or noted, he denied any auditory or visual hallucinations. Attention and concentration were intact and memory appeared reliable but none were formally tested. He is alert and oriented x3. Insight and judgment appear fair, and impulse control is limited. Discharge Data Vitals: Last Vital Signs Temp 97.2 F L 11/11/21 14:00 Pulse 105 H 11/11/21 14:00 Resp 20 H 11/11/21 14:00 BP 152/94 11/11/21 14:00 Pulse Ox 97 11/11/21 14:00 Discharge Plan Discharge Patient Disposition: Home Condition: Stable Prescriptions: New trazodone 50 mg Tablet 50 mg PO BEDTIME PRN (Reason: Insomnia) 30 Days Qty: 30 RF: 1 lisinopril 20 mg Tablet 20 mg PO DAILY 30 Days Qty: 30 RF: 1 risperidone 2 mg Tablet 2 mg PO BEDTIME 30 Days Qty: 30 RF: 1 risperidone 1 mg Tablet 1 mg PO BID 30 Days Qty: 60 RF: 1 Discontinued lisinopril 10 mg tablet 10 mg PO DAILY RF: 0 Discharge Orders: Discharge Order (Routine); Ordered 11/11/21 Ordered By: Nasir Dexter Referrals: Colette Jeong PMHNP [Staff Physician] - 12/11/21 1:45 pm Discharge Diet: Regular Discharge Activity: Resume usual activity Patient Instructions: Opioid Safety Discharge Attestations NPU Time Spent in Discharge Care*: less than 30 min Specific Discharge Activities: Specific discharge activities: educating patient, discussing with spring encaser/social workers/dc planners, documenting/other paperwork and evaluating patient/reviewing data Coding Level of Care Code Acute [facility] DC note Diagnoses Gastroenteritis K52.9 Post-traumatic stress disorder, chronic F43.12 Opioid dependence, in remission F11.21 Alcohol dependence, in remission F10.21 Other stimulant dependence, in remission F15.21 Cannabis dependence, uncomplicated F12.20 Depression F33.2 Active/Remission status: currently active Depression Type: major depressive disorder Major depression episode severity: severe Major depression recurrence: recurrent Psychotic features: without psychotic features
[2021-11-11 14:59] VITALS: BP 152/94; PULSE 105; RESP 20; TEMP 36.2; O2SAT 97
== END 2021-11-11 15:15 | disposition home or self-care (01) | DRG 885 ==
LOC: ER 20:39 → NP 21:40
PROVIDERS: Admitting Provider Psychiatry & Neurology Psychiatry; Emergency Provider Emergency Medicine; Visit Provider Psychiatry & Neurology Psychiatry
DX: F33.2 Major depressive disorder, recurrent severe without psychotic features (principal); R45.851 Suicidal ideations; Z68.41 Body mass index [BMI] 40.0-44.9, adult; F43.12 Post-traumatic stress disorder, chronic; F11.21 Opioid dependence, in remission; F15.21 Other stimulant dependence, in remission; I10 Essential (primary) hypertension; F10.21 Alcohol dependence, in remission; F12.20 Cannabis dependence, uncomplicated; F17.210 Nicotine dependence, cigarettes, uncomplicated; E66.9 Obesity, unspecified; Z63.5 Disruption of family by separation and divorce; Z23 Encounter for immunization
CPT/HCPCS: 80053; 80306; 80307; 84484; 85025; 90471; 90686; 93005; 96372; 97150; 97165; 99285; J2060

== ENCOUNTER → 2021-11-13 15:15 | Outpatient (BNVA) | payer OTHER, SELFPAY | PROVIDERS: Visit Provider Nurse Practitioner | DX: F43.12 Post-traumatic stress disorder, chronic (principal) | CPT/HCPCS: 80061; 83036 ==

== ENCOUNTER 2021-12-05 08:44 | Emergency (ER) | payer MEDICAID, SELFPAY ==
[2021-11-18 15:37] VITALS: BP 142/106; BMI 44.5
[2021-12-05 08:53] VITALS: BP 156/101; PULSE 100; RESP 16; TEMP 36.7; O2SAT 97; BMI 43.1
--- NOTE | 2021-12-05 08:59 | ECG_ITS ---
[facility] Test Date: 2021-12-05 Pat Name: Wicho Lugo Department: Room: Gender: Male Steward/Stewardess Bath: : 1985 Requested By: Jelly Torres Order Number: [id number] Mujica MD: Angelia Olea M.D. Measurements Intervals [place] Rate: 96 P: 38 DE: 156 QRS: 17 QRSD: 110 T: 34 QT: 339 QTc: 429 Interpretive Statements SINUS RHYTHM INTERPRETATION BASED ON A DEFAULT AGE OF 40 YEARS Compared to ECG 11/06/2021 21:07:03 Myocardial infarct finding no longer present Electronically Signed On 12-05-2021 17:52:55 CHICKEN FANCIER by Angelia Olea M.D. [email or web address] [email or web address] medical centerKelly Van Gogh [employer]/store/NU/[id number] f
--- NOTE | 2021-12-05 09:01 | W.ED.GENADLT ---
HPI - General Adult General: Chief complaint: General Medical Stated complaint: d/n/v chest pains occasionally Time Seen by Provider: 12/05/21 08:59 History of Present Illness: HPI narrative: 36-year-old male presents emergency room complaining of abdominal discomfort nausea vomiting and diarrhea shortness of breath myalgias fever. Symptoms began over the last 1 to 2 days. He has also had associated with significant cough. He is not previously COVID nor is he been vaccinated. Denies any anosmia. Onset (ago): day(s) (2) Severity: mild Quality: aching Relieving factors: none Exacerbating factors: none Associated symptoms: Reports cough, decreased appetite, dyspnea, fevers/chills, headache(s), malaise, nausea and short of breath; Deny chest pain, confusion, diaphoresis, rash, palpitations, seizures, syncope, vomiting or weakness Treatments prior to arrival: none Review of Systems Const: Reports: malaise; Denies: diaphoresis ENMT: Denies: throat pain, ear or mastoid pain, nasal discharge or nasal congestion Card: Denies: chest pain, palpitations or syncope Resp: Reports: dyspnea GI: Reports: nausea; Denies: vomiting : Denies: flank pain, dysuria, urinary frequency or urinary urgency Skin/Breast: Denies: rash Neuro: Reports: headache(s); Denies: confusion PFSH ED PFSH: Medical History Alcohol dependence, in remission Cannabis dependence, uncomplicated Opioid dependence, in remission Other stimulant dependence, in remission Post-traumatic stress disorder, chronic Psychiatric care Physical Exam Const: COMMON NORMALS: no acute distress GENERAL APPEARANCE: cooperative and comfortable ORIENTATION/CONSCIOUSNESS: Yes awake, Yes oriented to person, Yes oriented to place and Yes oriented to time HENMT: COMMON NORMALS: normocephalic, atraumatic and hearing grossly normal bilaterally HEAD & SCALP: normocephalic and atraumatic Neck/C-Spine: COMMON NORMALS: no JVD Resp: COMMON NORMALS: normal respiratory effort, No retractions, No use of accessory muscles and clear to auscultation bilaterally AUSCULTATION: clear to auscultation bilaterally Cardio: COMMON NORMALS: no JVD, regular rate, regular rhythm and No murmurs present (Cardio) RATE: regular rate RHYTHM: regular rhythm GI: COMMON NORMALS: Soft to palpation and No hepatosplenomegaly present AUSCULTATION: Yes normoactive bowel sounds PALPATION: Yes Soft to palpation, No Tenderness to palpation present (GI), No Guarding due to palpation present (GI) and Yes No hepatosplenomegaly present Extremity: COMMON NORMALS: normal to inspection, capillary refill normal, no clubbing, cyanosis or edema, no calf tenderness and no pedal edema Neuro: SENSORIUM/ORIENTATION: Yes oriented to person, Yes oriented to place and Yes oriented to time Skin: COMMON NORMALS: no rashes or lesions noted GENERAL SKIN EXAM: no rashes or lesions noted Course Vital Signs: Vital signs: Vital Signs Temperature 98.0 F 12/05/21 08:53 Pulse Rate 100 12/05/21 08:53 Respiratory Rate 16 12/05/21 08:53 Blood Pressure 156/101 12/05/21 08:53 Pulse Oximetry 97 12/05/21 08:53 MDM - General Adult MDM Narrative: Medical decision making narrative: Labs and imaging reviewed on the chart. Clinically suspect patient has COVID-19. We will go ahead and discharge him home he is feeling fine at this time other than the flulike symptoms. Swab is pending discussed with him that if he is COVID positive we would offer monoclonal antibody treatment. Recommend that he maintain self quarantine we call him later this morning this afternoon with results. Educational material given. Return if has problems. Lab Data: Labs: Lab Results 12/05/21 12/05/21 12/05/21 09:24 09:24 09:24 WBC 5.3 10^3/uL 10^3/ uL (4.0-10.0) RBC 4.66 10^6/uL 10^6 /uL (4.1-5.3) Hgb 13.7 g/dL g/dL (11.7-16.6) Hct 42.8 % % (42.0-52.0) MCV 91.8 fl fl (80-94) MCH 29.4 pg pg (28.0-34.0) MCHC 32.0 g/dL g/dL (30.0-36.0) RDW 12.4 % % (12.1-15.1) Plt Count 176 10^3/cmm 10^3 /cmm (130-400) MPV 8.8 fL fL (7.4-10.4) Neut % (Auto) 65.7 % % Lymph % (Auto) 20.2 % % [place] % (Auto) 8.0 % % Eos % (Auto) 4.9 % % Baso % (Auto) 0.6 % % Neut # (Auto) 3.46 10^3/uL 10^3 /uL (1.8-7.7) Lymph # (Auto) 1.1 10^3/uL 10^3/ uL (0.8-4.8) [place] # (Auto) 0.4 10^3/uL 10^3/ uL (0.2-0.9) Eos # (Auto) 0.3 10^3/uL 10^3/ uL (0.0-0.8) Baso # (Auto) 0.0 10^3/uL 10^3/ uL (0.0-0.1) Nucleated RBC % (a uto) 0 % % Nucleated RBCs # 0.0 /100WBC /100W BC D-Dimer Sodium 136 mmol/L mmol/L (136-145) Potassium 4.1 mmol/L mmol/L (3.5-5.1) Chloride 105 mmol/L mmol/L (98-107) Carbon Dioxide 21 mmol/L L mmol/ L (22-29) Anion Gap 14.1 (5-19) BUN 12 mg/dL mg/dL (6-20) Creatinine 0.8 mg/dL mg/dL (0.7-1.2) GFR Calculation 108.8 mL/min mL/m in (90-130) Glucose 116 mg/dL H mg/dL (65-115) Calculated Osmolal ity 283 mOsm/kg L mOs m/kg (285-295) Calcium 8.2 mg/dL L mg/dL (8.5-10.5) Total Bilirubin 0.2 mg/dL mg/dL (0.15-1.2) AST 37 U/L U/L (0-40) ALT 47 U/L H U/L (0-41) Alkaline Phosphata se 57 IU/L IU/L (40-130) Total Protein 6.5 g/dL L g/dL (6.6-8.7) Albumin 3.9 g/dL g/dL (3.5-5.2) Globulin 2.6 g/dL g/dL (1.3-4.6) Lipase 26 U/L U/L (13-60) Urine Color Yellow (Yellow) Urine Appearance Clear (CLEAR) Urine pH 5 (5-7) Ur Specific Gravit y 1.020 (1.005-1.030) Urine Protein Neg (Negative) Urine Glucose (UA) Norm (Normal) Urine Ketones Negative (Negative) Urine Blood Neg (Negative) Urine Nitrate Negative (Negative) Urine Bilirubin Neg (Negative) Urine Urobilinogen Norm mg/dL mg/dL (Negative) Ur Leukocyte Sherry ase Negative (Negative) 12/05/21 09:46 WBC RBC Hgb Hct MCV MCH MCHC RDW Plt Count MPV Neut % (Auto) Lymph % (Auto) [place] % (Auto) Eos % (Auto) Baso % (Auto) Neut # (Auto) Lymph # (Auto) [place] # (Auto) Eos # (Auto) Baso # (Auto) Nucleated RBC % (a uto) Nucleated RBCs # D-Dimer 0.61 ug/mIFEU H u g/mIFEU (0-0.59) Sodium Potassium Chloride Carbon Dioxide Anion Gap BUN Creatinine GFR Calculation Glucose Calculated Osmolal ity Calcium Total Bilirubin AST ALT Alkaline Phosphata se Total Protein Albumin Globulin Lipase Urine Color Urine Appearance Urine pH Ur Specific Gravit y Urine Protein Urine Glucose (UA) Urine Ketones Urine Blood Urine Nitrate Urine Bilirubin Urine Urobilinogen Ur Leukocyte Sherry ase Discharge Plan Discharge Patient Disposition: Home Clinical Impression: Clinical diagnosis of COVID-19 Condition: Stable Prescriptions: No Action trazodone 50 mg Tablet 50 mg PO BEDTIME PRN (Reason: Insomnia) 30 Days Qty: 30 RF: 1 lisinopril 20 mg Tablet 20 mg PO DAILY 30 Days Qty: 30 RF: 1 risperidone 2 mg Tablet 2 mg PO BEDTIME 30 Days Qty: 30 RF: 1 risperidone 1 mg Tablet 1 mg PO BID 30 Days Qty: 60 RF: 1 Discharge Orders: Discharge ED (Routine); Ordered 12/05/21 Ordered By: Americo Sheikh Patient Instructions: COVID-19 (Coronavirus Disease 2019) (ED), COVID-19: Slow the Coronavirus Spread (ED), Social Distancing Guidelines for COVID-19 (ED), Opioid Safety Activity Restrictions/Additional Instructions: You were tested for COVID-19 today the test is still pending. Recommend that you maintain self quarantine until the results are available. If you are positive you would be a candidate for monoclonal antibodies which can be scheduled at a later date. Coding Level of Care Code ED Composition Stone Applicator for Aby Dixon
--- NOTE | 2021-12-05 09:20 | XR_ITS ---
WS: [id number] PORTABLE CHEST HISTORY: dyspnea/cough COMPARISON: 11/04/2021 Lungs are clear and well expanded. No pleural effusion or pneumothorax. Cardiac size: Normal. Mediastinum/Aorta: Normal mediastinum. No osseous abnormality seen. XR/XR chest 1V portable [id number] IMPRESSION: Unremarkable portable chest.
[2021-12-05 09:36] LABS: Add Urine Microscopic? NO; Charge for UA Resulting for Rev
[2021-12-05 09:39] LABS: Basophils % 0.6 %; Eosinophils # 0.3 10^3/uL (0.0-0.8); Eosinophils % 4.9 %; Hematocrit 42.8 % (42.0-52.0); Hemoglobin 13.7 g/dL (11.7-16.6); Lymphocytes # 1.1 10^3/uL (0.8-4.8); Lymphocytes % 20.2 %; Mean Corpuscular Hemoglobin 29.4 pg (28.0-34.0); Mean Corpuscular Volume 91.8 fl (80-94); Mean Platelet Volume 8.8 fL (7.4-10.4); Monocytes # 0.4 10^3/uL (0.2-0.9); Neutrophils # 3.46 10^3/uL (1.8-7.7); Neutrophils % 65.7 %; Nucleated Red Blood Cells % 0 %; Platelet Count 176 10^3/cmm (130-400); Red Blood Count 4.66 10^6/uL (4.1-5.3); Red Cell Distribution Width 12.4 % (12.1-15.1); White Blood Count 5.3 10^3/uL (4.0-10.0)
[2021-12-05 09:56] LABS: Alanine Aminotransferase 47 U/L (0-41); Albumin Level 3.9 g/dL (3.5-5.2); Alkaline Phosphatase 57 IU/L (40-130); Aspartate Amino Transferase 37 U/L (0-40); Blood Urea Nitrogen 12 mg/dL (6-20); Calcium 8.2 mg/dL (8.5-10.5); Carbon Dioxide 21 mmol/L (22-29); Chloride 105 mmol/L (98-107); Globulin 2.6 g/dL (1.3-4.6); Glomerular Filtration Rate 108.8 mL/min (90-130); Glucose 116 mg/dL (65-115); Lipase 26 U/L (13-60); Osmolality Calculated 283 mOsm/kg (285-295); Sodium 136 mmol/L (136-145); Total Bilirubin 0.2 mg/dL (0.15-1.2); Total Protein 6.5 g/dL (6.6-8.7)
[2021-12-05 09:57] LABS: Anion Gap 14.1 (5-19); Potassium 4.1 mmol/L (3.5-5.1)
[2021-12-05 09:58] LABS: Bilirubin Urine Neg (Negative); Blood Urine Neg (Negative); Glucose Urine UA Norm (Normal); Ketones Urine Negative (Negative); Leukocyte Esterase Urine Negative (Negative); Nitrate Urine Negative (Negative); Protein Urine Neg (Negative); Urine Appearance Clear (CLEAR); Urine Color Yellow (Yellow); Urobilinogen Urine Norm (Negative); pH Urine 5 (5-7)
[2021-12-05 10:10] LABS: D Dimer 0.61 ug/mIFEU (0-0.59)
[2021-12-05 10:58] VITALS: BP 151/106; PULSE 95; RESP 16; O2SAT 100
[2021-12-05 11:33] LABS: Adenovirus Not Detected (NOT DETECT); Chlamydia Pneumoniae Not Detected (NOT DETECT); Coronavirus 229E,HKU1,NL63,OC4 Not Detected (NOT DETECT); Human Metapneumovirus Not Detected (NOT DETECT); Human Rhinovirus/Enterovirus Not Detected (NOT DETECT); Influenza A Not Detected (NOT DETECT); Influenza A H1 Not Detected (NOT DETECT); Influenza A H1-2009 Not Detected (NOT DETECT); Influenza A H3 Not Detected (NOT DETECT); Influenza B Not Detected (NOT DETECT); Mycoplasma Pneumoniae Not Detected (NOT DETECT); Parainfluenza Virus Type 1 Not Detected (NOT DETECT); Parainfluenza Virus Type 2 Not Detected (NOT DETECT); Parainfluenza Virus Type 3 Not Detected (NOT DETECT); Parainfluenza Virus Type 4 Not Detected (NOT DETECT); Respiratory Syncytial Virus A Not Detected (NOT DETECT); Respiratory Syncytial Virus B Not Detected (NOT DETECT); SARS-COV-2 Not Detected (NOT DETECT)
== END 2021-12-05 11:00 | disposition home or self-care (01) ==
PROVIDERS: Physician Assistant; Emergency Provider Family Medicine
DX: U07.1 COVID-19 (principal)
CPT/HCPCS: 71045; 80053; 81003; 83690; 85025; 85378; 87635; 93005; 99283

== ENCOUNTER 2022-01-29 16:45 | Emergency (ER) | payer MEDICAID, SELFPAY ==
[2022-01-12 13:34] VITALS: BP 142/106; BMI 44.5
[2022-01-29 16:57] VITALS: BP 136/99; PULSE 113; RESP 14; TEMP 36.3; O2SAT 95; BMI 43.6
--- NOTE | 2022-01-29 17:18 | XRR_ITS ---
PROCEDURE INFORMATION: Exam: XR Chest Exam date and time: 01/29/2022 5:18 PM Age: 36 years old Clinical indication: Sternal or substernal pain; Additional info: Cp TECHNIQUE: Imaging protocol: XR of the chest. Views: 1 view. COMPARISON: CR XR chest 1V portable [id number] 12/05/2021 9:29 AM FINDINGS: Lungs: Right hilar to lower lobe atelectasis versus minimal infiltrate. Pleural spaces: Unremarkable. No pleural effusion. No pneumothorax. Heart/Mediastinum: Unremarkable. No cardiomegaly. Bones/joints: Unremarkable. XR/XR chest 1V portable [id number] IMPRESSION: Right hilar to lower lobe atelectasis versus minimal infiltrate.
--- NOTE | 2022-01-29 17:18 | ECG_ITS ---
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 Measurements Intervals [place] Rate: 105 P: 51 [place]: 156 QRS: 85 QRSD: 110 T: 28 QT: 341 QTc: 451 Interpretive Statements SINUS TACHYCARDIA ABNORMAL RHYTHM ECG Compared to ECG 12/05/2021 09:15:58 Sinus rhythm no longer present Electronically Signed On 01-29-2022 17:48:16 HOSPITAL FOOD SERVICE WORKER by Angelia Olea M.D. [id number]
--- NOTE | 2022-01-29 17:20 | ED_ITS ---
HPI - Chest Pain General: Chief Complaint: Headache Stated Complaint: Chest Pain\High Blodd Pressure Time Seen by Provider: 01/29/22 17:11 History of Present Illness: Patient is a 36-year-old male comes to the ED with chest pain. Patient states symptoms started 2 days ago while he was lying down. He endorses feeling chest pain that started on the left side of his chest and has been constant and has progressed towards radiating into his upper left arm. He rates the pain currently a 7 out of 10. Denies any improving factors. When he is up and working he says he does not notice the pain is much because he is distracted by it but when he rests and sits down he notices it more. He also endorses some nausea and a headache. Associated symptoms: Deny abdominal pain, dyspnea, fever(s), nausea, palpitations or vomiting Review of Systems Const: Denies: fever(s), chills or fatigue Eyes: Denies: change in vision or eye discomfort ENMT: Denies: throat pain, odynophagia, nasal discharge or nasal congestion Card: Reports: chest pain; Denies: palpitations, edema, swelling of feet/ankles, dyspnea on exertion or orthopnea Resp: Denies: dyspnea, productive cough or non-productive cough GI: Denies: abdominal pain, nausea, vomiting, diarrhea, constipation or hematochezia : Denies: flank pain, difficulty urinating, dysuria or hematuria Musc: Denies: neck pain, back pain or extremity swelling Skin/Breast: Denies: rash or new lesions Neuro: Reports: headache(s); Denies: numbness in extremities or weakness in extremities [facility] ED PFSH: Medical History Chronic post-traumatic stress disorder Depression, major, recurrent, severe with psychosis History of attention deficit hyperactivity disorder (ADHD) History of substance use disorder last use of marijuana reported as January 2021 last use of opiates, methamphetamines, alcohol reported 2018 Idiopathic mild intellectual disability Surgical History No pertinent past surgical history Physical Exam Const: COMMON NORMALS: no acute distress, patient oriented x3 and alert GENERAL APPEARANCE: cooperative and comfortable HENMT: COMMON NORMALS: normocephalic HEAD & SCALP: normocephalic MOUTH: Normal oral and palatal mucosa present THROAT: posterior oropharynx normal and uvula midline Neck/C-Spine: COMMON NORMALS: supple GENERAL: Yes normal visual inspection Resp: COMMON NORMALS: normal respiratory effort, No retractions, No use of accessory muscles and clear to auscultation bilaterally AUSCULTATION: clear to auscultation bilaterally Cardio: COMMON NORMALS: regular rate, regular rhythm, S1 normal heart sound present, S2 normal heart sound present, No gallops present (Cardio), No clicks present (Cardio), No murmurs present (Cardio) and Peripheral pulses 2+ throughout RATE: regular rate RHYTHM: regular rhythm HEART SOUNDS: S1 normal heart sound present and S2 normal heart sound present PERIPHERAL PULSES: Peripheral pulses 2+ throughout GI: COMMON NORMALS: Normal to inspection, nondistended, normoactive bowel sounds present, Soft to palpation, non-tender and no masses PALPATION: Yes Soft to palpation : COMMON NORMALS: Yes no CVA tenderness BLADDER/KIDNEY EXAM: Yes no CVA tenderness Back/Pelvis: COMMON NORMALS: no CVA tenderness Extremity: COMMON NORMALS: normal to inspection Neuro: COMMON NORMALS: patient oriented x3 and moves all extremities SENSORIUM/ORIENTATION: Yes alert Skin: GENERAL SKIN EXAM: dry skin Course Vital Signs: Vital signs: Vital Signs Temperature 97.4 F L 01/29/22 16:57 Pulse Rate 92 01/29/22 17:39 Respiratory Rate 18 01/29/22 17:39 Blood Pressure 136/99 01/29/22 17:39 Pulse Oximetry 95 01/29/22 17:39 MDM - Chest Pain Medical Decision Making Patient is a 36-year-old male who comes to the ED with chest pain. Vitals are stable. Patient appears in no acute distress or pain is sitting comfortably on exam chair. Exam is benign. CBC and CMP were unremarkable. EKG showed no acute signs. Troponin negative. Chest x-ray showed some right hilar and lower lobe atelectasis. Patient diagnosed with noncardiac chest pain and discharged home. He was told to follow-up with his PCP in 5 to 7 days for reevaluation. Return to ED precautions given. Patient understood and agreed with plan. Lab Data I reviewed the patient's lab results. : 01/29/22 19:00 01/29/22 19:00 Radiology Impressions Chest X-Ray 01/29/22 17:18 IMPRESSION: Right hilar to lower lobe atelectasis versus minimal infiltrate. Laboratory Results WBC 10.5 10^3/uL (4.0-10.0) H 01/29/22 19:00 RBC 4.60 10^6/uL (4.1-5.3) 01/29/22 19:00 Hgb 13.4 g/dL (11.7-16.6) 01/29/22 19:00 Hct 39.9 % (42.0-52.0) L 01/29/22 19:00 MCV 86.7 fl (80-94) 01/29/22 19:00 MCH 29.1 pg (28.0-34.0) 01/29/22 19:00 MCHC 33.6 g/dL (30.0-36.0) 01/29/22 19:00 RDW 13.3 % (12.1-15.1) 01/29/22 19:00 Plt Count 212 10^3/cmm (130-400) 01/29/22 19:00 MPV 9.2 fL (7.4-10.4) 01/29/22 19:00 Neut % (Auto) 57.6 % 01/29/22 19:00 Lymph % (Auto) 30.4 % 01/29/22 19:00 [place] % (Auto) 8.1 % 01/29/22 19:00 Eos % (Auto) 3.1 % 01/29/22 19:00 Baso % (Auto) 0.5 % 01/29/22 19:00 Neut # (Auto) 6.06 10^3/uL (1.8-7.7) 01/29/22 19:00 Lymph # (Auto) 3.2 10^3/uL (0.8-4.8) 01/29/22 19:00 [place] # (Auto) 0.9 10^3/uL (0.2-0.9) 01/29/22 19:00 Eos # (Auto) 0.3 10^3/uL (0.0-0.8) 01/29/22 19:00 Baso # (Auto) 0.1 10^3/uL (0.0-0.1) 01/29/22 19:00 Nucleated RBC % (auto) 0 % 01/29/22 19:00 Nucleated RBCs # 0.0 /100WBC 01/29/22 19:00 Sodium 135 mmol/L (136-145) L 01/29/22 19:00 Potassium 4.1 mmol/L (3.5-5.1) 01/29/22 19:00 Chloride 104 mmol/L (98-107) 01/29/22 19:00 Carbon Dioxide 19 mmol/L (22-29) L 01/29/22 19:00 Anion Gap 16.1 (5-19) 01/29/22 19:00 BUN 18 mg/dL (6-20) 01/29/22 19:00 Creatinine 0.8 mg/dL (0.7-1.2) 01/29/22 19:00 GFR Calculation 108.8 mL/min (90-130) 01/29/22 19:00 Glucose 94 mg/dL (65-115) 01/29/22 19:00 Calculated Osmolality 282 mOsm/kg (285-295) L 01/29/22 19:00 Calcium 9.1 mg/dL (8.5-10.5) 01/29/22 19:00 Total Bilirubin 0.2 mg/dL (0.15-1.2) 01/29/22 19:00 AST 31 U/L (0-40) 01/29/22 19:00 ALT 45 U/L (0-41) H 01/29/22 19:00 Alkaline Phosphatase 62 IU/L (40-130) 01/29/22 19:00 Troponin T Baseline 6 ng/L (0-15) 01/29/22 19:00 NT-Pro-B Natriuret Pep 25 pg/mL (0-125) 01/29/22 19:00 Total Protein 7.4 g/dL (6.6-8.7) 01/29/22 19:00 Albumin 4.2 g/dL (3.5-5.2) 01/29/22 19:00 Globulin 3.2 g/dL (1.3-4.6) 01/29/22 19:00 EKG Data EKG 1: EKG interpretation date: 01/29/22 Interpretation: Sinus tachycardia, 105 bpm, no ST segment elevation or depression seen. Discharge Plan Discharge Patient Disposition: Home Clinical Impression: Chest pain, non-cardiac Condition: Stable Prescriptions: No Action lisinopril 40 mg tablet 40 mg PO .morning Qty: 30 3RF Rx Instructions: Take one tablet every morning ziprasidone HCl [Geodon] 40 mg capsule 40 mg PO .evening Qty: 30 1RF Rx Instructions: Take one capsule in evening with 500 calorie of food Discharge Orders: Discharge ED (Routine); Ordered 01/29/22 Ordered By: Edy Velazquez Discharge Diet: Regular Discharge Activity: Resume usual activity Patient Instructions: Noncardiac Chest Pain (ED) Activity Restrictions/Additional Instructions: Follow-up with medical provider as directed in the next 5 to 7 days for reevaluation. Continue taking all home medications as previously prescribed. Return to the ER or your medical provider if condition worsens. Please read and understand discharge instructions. Thank you for choosing [facility] for your healthcare needs today. Please realize this is an emergency room and that we are providing you with a medical screening exam and this may not be complete and all inclusive of all the testing and or work up that you may need to determine your ailment or severity of your illness. It is very important that you follow up as instructed or that you return to the Emergency Department should you have concerns or if your condition changes or worsens in any way. Stand Alone Forms: Work/School Release Coding Level of Care Code ED Telemetry Registered Nurse for Aby Dixon Exam Comprehensive
[2022-01-29 17:39] VITALS: BP 136/99; PULSE 92; RESP 18; O2SAT 95
[2022-01-29] MEDS: aspirin 81 mg Chew Tablet 324 MG PO (18:00)
[2022-01-29] MEDS: sodium chloride 0.9% 500 ML 999 ML IV (18:04)
[2022-01-29 19:09] LABS: Basophils # 0.1 10^3/uL (0.0-0.1); Basophils % 0.5 %; Eosinophils # 0.3 10^3/uL (0.0-0.8); Eosinophils % 3.1 %; Hematocrit 39.9 % (42.0-52.0); Hemoglobin 13.4 g/dL (11.7-16.6); Lymphocytes # 3.2 10^3/uL (0.8-4.8); Lymphocytes % 30.4 %; Mean Corpuscular HGB Conc 33.6 g/dL (30.0-36.0); Mean Corpuscular Hemoglobin 29.1 pg (28.0-34.0); Mean Corpuscular Volume 86.7 fl (80-94); Mean Platelet Volume 9.2 fL (7.4-10.4); Monocytes # 0.9 10^3/uL (0.2-0.9); Monocytes % 8.1 %; Neutrophils # 6.06 10^3/uL (1.8-7.7); Neutrophils % 57.6 %; Nucleated Red Blood Cells % 0 %; Platelet Count 212 10^3/cmm (130-400); Red Cell Distribution Width 13.3 % (12.1-15.1); White Blood Count 10.5 10^3/uL (4.0-10.0)
[2022-01-29 19:46] LABS: Troponin(5th) Baseline 6 ng/L (0-15)
[2022-01-29 19:53] LABS: Alanine Aminotransferase 45 U/L (0-41); Albumin Level 4.2 g/dL (3.5-5.2); Alkaline Phosphatase 62 IU/L (40-130); Blood Urea Nitrogen 18 mg/dL (6-20); Calcium 9.1 mg/dL (8.5-10.5); Carbon Dioxide 19 mmol/L (22-29); Chloride 104 mmol/L (98-107); Globulin 3.2 g/dL (1.3-4.6); Glomerular Filtration Rate 108.8 mL/min (90-130); Glucose 94 mg/dL (65-115); NT Pro B Type Natriuretic Pept 25 pg/mL (0-125); Osmolality Calculated 282 mOsm/kg (285-295); Sodium 135 mmol/L (136-145); Total Bilirubin 0.2 mg/dL (0.15-1.2); Total Protein 7.4 g/dL (6.6-8.7)
[2022-01-29 19:54] LABS: Anion Gap 16.1 (5-19); Aspartate Amino Transferase 31 U/L (0-40); Potassium 4.1 mmol/L (3.5-5.1)
== END 2022-01-29 20:37 | disposition home or self-care (01) ==
PROVIDERS: Emergency Provider Physician Assistant
DX: R07.89 Other chest pain (principal)
CPT/HCPCS: 71045; 80053; 83880; 84484; 85025; 93005; 99283; J7040

== ENCOUNTER 2022-02-05 16:15 | Emergency (ER) | payer MEDICAID, SELFPAY ==
[2022-01-12 13:34] VITALS: BP 142/106; BMI 44.5
[2022-02-05] VITALS (10 sets, daily range): BP systolic 109–215; BP diastolic 83–122; PULSE 96–111; RESP 17–20; TEMP 36.7; O2SAT 96–99; BMI 43.7
--- NOTE | 2022-02-05 16:34 | ECG_ITS ---
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 Measurements Intervals [place] Rate: 103 P: 56 ID: [id number] QRS: 5 QRSD: 106 T: 32 QT: 342 QTc: 449 Interpretive Statements SINUS TACHYCARDIA ABNORMAL RHYTHM ECG Compared to ECG 01/29/2022 17:08:15 No significant changes Electronically Signed On 02-06-2022 5:55:13 RADIO INTERFERENCE INVESTIGATOR by Padmini Ozuna M.D. [id number]
--- NOTE | 2022-02-05 16:34 | XRR_ITS ---
PROCEDURE INFORMATION: Exam: XR Chest Exam date and time: 02/05/2022 4:34 PM Age: 36 years old Clinical indication: Other: Weakness; Sternal or substernal pain; Additional info: Chest pain TECHNIQUE: Imaging protocol: XR of the chest. Views: 1 view. COMPARISON: CR XR chest 1V portable [id number] 01/29/2022 5:29 PM FINDINGS: Lungs: Unremarkable. No consolidation. Pleural spaces: Unremarkable. No pleural effusion. No pneumothorax. Heart/Mediastinum: Unremarkable. No cardiomegaly. Bones/joints: Unremarkable. XR/XR chest 1V portable [id number] IMPRESSION: No acute findings.
--- NOTE | 2022-02-05 17:05 | ED_ITS ---
HPI - Chest Pain General: Chief Complaint: Chest Pain Stated Complaint: elevated bp Time Seen by Provider: 02/05/22 16:20 [facility] PFSH: Medical History Chronic post-traumatic stress disorder Depression, major, recurrent, severe with psychosis History of attention deficit hyperactivity disorder (ADHD) History of substance use disorder last use of marijuana reported as January 2021 last use of opiates, methamphetamines, alcohol reported 2017 Idiopathic mild intellectual disability Surgical History No pertinent past surgical history Course Vital Signs: Vital signs: Vital Signs Temperature 98.0 F 02/05/22 16:19 Pulse Rate 111 H 02/05/22 16:19 Respiratory Rate 17 02/05/22 16:19 Blood Pressure 215/122 02/05/22 16:19 Pulse Oximetry 99 02/05/22 16:19 Discharge Plan Discharge Condition: Stable Prescriptions: No Action propranolol 20 mg tablet 20 mg PO BID Qty: 60 1RF Rx Instructions: Take one tablet twice per day hydroxyzine HCl 50 mg tablet 100 mg PO BID PRN (Reason: anxiety) Qty: 60 1RF Rx Instructions: May take two tablets twice per day as needed for anxiety ziprasidone HCl [Geodon] 40 mg capsule 80 mg PO .evening Qty: 30 2RF Rx Instructions: Take two capsules every evening with 500 calorie of food Referrals: Tosin Maurice MD [Primary Care Provider] - Coding Level of Care Code ED Respiratory Care Practitioner for Aby Dixon
[2022-02-05] MEDS: NIFEdipine ER (24 hr) 30 mg Tablet 60 MG PO ×2 (17:26→19:29)
[2022-02-05] MEDS: acetaminophen 500 mg Tablet PO ×2 (17:26→20:06)
[2022-02-05] MEDS: sodium chloride 0.9% 1,000 ML 999 ML IV ×2 (17:26→19:28)
[2022-02-05 17:28] LABS: Basophils # 0.1 10^3/uL (0.0-0.1); Basophils % 0.5 %; Eosinophils # 0.3 10^3/uL (0.0-0.8); Eosinophils % 2.7 %; Hematocrit 41.4 % (42.0-52.0); Hemoglobin 13.9 g/dL (11.7-16.6); Lymphocytes # 3.3 10^3/uL (0.8-4.8); Lymphocytes % 32.3 %; Mean Corpuscular HGB Conc 33.6 g/dL (30.0-36.0); Mean Corpuscular Hemoglobin 29.4 pg (28.0-34.0); Mean Corpuscular Volume 87.7 fl (80-94); Mean Platelet Volume 9.2 fL (7.4-10.4); Monocytes # 0.6 10^3/uL (0.2-0.9); Monocytes % 5.9 %; Neutrophils # 5.99 10^3/uL (1.8-7.7); Neutrophils % 58.2 %; Nucleated Red Blood Cells % 0 %; Platelet Count 234 10^3/cmm (130-400); Red Blood Count 4.72 10^6/uL (4.1-5.3); Red Cell Distribution Width 13.1 % (12.1-15.1); White Blood Count 10.3 10^3/uL (4.0-10.0)
[2022-02-05 17:42] LABS: Troponin(5th) Baseline 6 ng/L (0-15)
[2022-02-05 17:53] LABS: Anion Gap 17.8 (5-19); Blood Urea Nitrogen 14 mg/dL (6-20); Calcium 9.3 mg/dL (8.5-10.5); Carbon Dioxide 21 mmol/L (22-29); Chloride 102 mmol/L (98-107); Free T4 Free Thyroxine 0.95 ng/dL (0.82-1.77); Glucose 90 mg/dL (65-115); Osmolality Calculated 284 mOsm/kg (285-295); Potassium 3.8 mmol/L (3.5-5.1); Sodium 137 mmol/L (136-145); Thyroid Stimulating Hormone 1.97 uIU/mL (0.27-4.20)
[2022-02-05 19:04] LABS: D Dimer 0.38 ug/mIFEU (0-0.59)
[2022-02-05 19:12] LABS: Troponin 5 2HR 12.66 ng/L (0-15)
[2022-02-05 19:36] LABS: Troponin 5 2HR Delta 6.66 ABS# (0-10)
--- NOTE | 2022-02-05 19:48 | W.ED.GENADLT ---
HPI - General Adult General: Chief complaint: Chest Pain Stated complaint: elevated bp Time Seen by Provider: 02/05/22 16:20 History of Present Illness: CC: Elevated BP, chest pain, headche and light-headedness HPI: [36]yo patient w/ x hx of HTN, PTSD, depression, and AHDH presenting to the ED with complaints that his BP is not well controlled. Patient was previously on lisinopril 40mg. However, the patient noticed today BP is uncontrolled and he also reported symptoms of light-headdness and chest pain. Denies SOB, palpitation, N/V/D, pain radiating to the shoulder, headache, vision changes, LOC, or focal neurological deficits. Patient also denies syncope, abdominal pain, or back pain. In terms of patient's headache, patient's headache, patient reports intermittent aching chest pain lasting for few hours at a time. Patient denies any knife stab or any pleuritic chest pain. Chest pain does not radiate towards the back. No recent surgery or immobilization. Family hx of cardiac dysrhythma (brother). No other first degree family with cardiac diseases < 60 years of age. No prior history of VTE's. Family history of aneurysms. Onset: today Duration: ongoing Location: home Severity: mild/moderate Associated symptoms: Reports chest pain; Deny dyspnea, nausea, rash, palpitations or vomiting Review of Systems Const: Denies: fever(s) or chills Eyes: Denies: change in vision ENMT: Denies: mouth pain Card: Reports: chest pain; Denies: palpitations Resp: Denies: dyspnea or non-productive cough GI: Denies: abdominal pain, nausea, vomiting or diarrhea : Denies: dysuria Musc: Denies: extremity pain Skin/Breast: Denies: rash or new lesions Neuro: Reports: other (+light-headedness); Denies: weakness in extremities Psych: Reports: other (Normal mood) Kb/Lymph: Denies: easy bruising PFS ED PFSH: Medical History Chronic post-traumatic stress disorder Depression, major, recurrent, severe with psychosis History of attention deficit hyperactivity disorder (ADHD) History of substance use disorder last use of marijuana and alcohol reported as Jul 2021 last use of opiates, methamphetamines reported 2018 Idiopathic mild intellectual disability Surgical History No pertinent past surgical history Social History (Updated 02/05/22 @ 20:23 by Phylicia Hall MD) Smoking and tobacco status: former smoker Alcohol intake: never Substance/Drug Use: never Physical Exam Const: COMMON NORMALS: alert HENMT: COMMON NORMALS: atraumatic HEAD & SCALP: atraumatic MOUTH: moist mucous membranes not abnormal Eye: COMMON NORMALS: EOMs intact bilaterally and conjunctivae normal CONJUNCTIVA: Yes conjunctivae normal Neck/C-Spine: COMMON NORMALS: full ROM and supple Resp: COMMON NORMALS: normal respiratory effort and clear to auscultation bilaterally AUSCULTATION: clear to auscultation bilaterally Cardio: RATE: tachycardic OTHER: +2 radial pulses b/l GI: COMMON NORMALS: Soft to palpation and non-tender PALPATION: Yes Soft to palpation Extremity: COMMON NORMALS: full ROM Neuro: SENSORIUM/ORIENTATION: Yes alert MOTOR EXAM: No Abnormal motor strength present and Other motor observations present (no focal motor deficits) Psych: COMMON NORMALS: speech normal SPEECH: Yes normal speech MOOD & AFFECT: Yes euthymic mood Course Vital Signs: Vital signs: Vital Signs Temperature 98.0 F 02/05/22 16:19 Pulse Rate 104 H 02/05/22 18:09 Respiratory Rate 17 02/05/22 16:19 Blood Pressure 171/106 02/05/22 18:09 Pulse Oximetry 97 02/05/22 18:09 MDM - General Adult Medical Decision Making [36]yo patient w/ hx of HTN not on medications currently presenting to the ED with high BP readings x 1 day without other medical complaints. BP in in triage of 215/122. Rest of exam including full neuro exam intact. Given presentation, history and exam, I do not suspect aortic dissection, hypertensive encephalopathy, intracranial hemorrhage, ACS, TIA/CVA, flash pulmonary edema. Intervention: Nifedipine 60mg for elevated BP [8:30pm] On reassessment, BP improved after medication to 171/106. Patient continues to be symptom-free at this time. Patient has not had chest pain in the emergency room. EKG and troponin x2 within normal limit. D-dimer within normal limit. N.Do not suspect an emergent cause. Discussed with the patient the importance of logging BPs and following up with his PCP for adjustment of BP if BP continues to be persistently high. Given return instructions. Doubt ACS/PE or other emergent causes of chest pain. No suspicion for aortic dissection given no widened mediastinum, 2+ upper extremity pulses, or tearing pain. No suspicion for PE given no pleuritic chest pain, recent immobilization or surgery hemoptysis, or other VTE risk factors. EKG is non-ischemic. XR normal. Emergency room, patient developed gradual onset of right-sided headache. Patient received Benadryl, and Reglan with significant improvement symptom. Do not suspect acute brain bleed or SAH as this is not worst headache of life and sudden in onset. Did not reach maximal intensity over first 1-2 hours. Mildly tachycardiac on arrival. HR improved with IVF. No suspicion for acute bleeding or sepsis as cause of tachycardia, which today is likely anxiety and stress. Rx: Amlodipine 5mg QDaily for hypertension Based on history, exam, vital signs, and work up (as indicated) I do not suspect an ongoing emergent medical condition, and I believe the patient is safe for discharge and outpatient follow-up. The plan of care was discussed with the patient and all questions were answered. The patient agrees with the plan of care and is discharged in stable condition with verbal and written instructions, and verbalized understanding and ability to comply. I discussed the diagnosis and treatment plan at length with the patient. The patient understands signs and symptoms (including those which are new or worsening) which should prompt return to the ED. The patient is to seek prompt outpatient follow-up as noted verbally and/or in the discharge instructions. At the time of discharge the patient is well-appearing, well-hydrated, non-toxic, and assures appropriate follow-up as an outpatient. Lab Data : 02/05/22 16:40 02/05/22 16:40 Radiology Impressions Chest X-Ray 02/05/22 16:34 IMPRESSION: No acute findings. Laboratory Results WBC 10.3 10^3/uL (4.0-10.0) H 02/05/22 16:40 RBC 4.72 10^6/uL (4.1-5.3) 02/05/22 16:40 Hgb 13.9 g/dL (11.7-16.6) 02/05/22 16:40 Hct 41.4 % (42.0-52.0) L 02/05/22 16:40 MCV 87.7 fl (80-94) 02/05/22 16:40 MCH 29.4 pg (28.0-34.0) 02/05/22 16:40 MCHC 33.6 g/dL (30.0-36.0) 02/05/22 16:40 RDW 13.1 % (12.1-15.1) 02/05/22 16:40 Plt Count 234 10^3/cmm (130-400) 02/05/22 16:40 MPV 9.2 fL (7.4-10.4) 02/05/22 16:40 Neut % (Auto) 58.2 % 02/05/22 16:40 Lymph % (Auto) 32.3 % 02/05/22 16:40 [place] % (Auto) 5.9 % 02/05/22 16:40 Eos % (Auto) 2.7 % 02/05/22 16:40 Baso % (Auto) 0.5 % 02/05/22 16:40 Neut # (Auto) 5.99 10^3/uL (1.8-7.7) 02/05/22 16:40 Lymph # (Auto) 3.3 10^3/uL (0.8-4.8) 02/05/22 16:40 [place] # (Auto) 0.6 10^3/uL (0.2-0.9) 02/05/22 16:40 Eos # (Auto) 0.3 10^3/uL (0.0-0.8) 02/05/22 16:40 Baso # (Auto) 0.1 10^3/uL (0.0-0.1) 02/05/22 16:40 Nucleated RBC % (auto) 0 % 02/05/22 16:40 Nucleated RBCs # 0.0 /100WBC 02/05/22 16:40 D-Dimer 0.38 ug/mIFEU (0-0.59) 02/05/22 18:43 Sodium 137 mmol/L (136-145) 02/05/22 16:40 Potassium 3.8 mmol/L (3.5-5.1) 02/05/22 16:40 Chloride 102 mmol/L (98-107) 02/05/22 16:40 Carbon Dioxide 21 mmol/L (22-29) L 02/05/22 16:40 Anion Gap 17.8 (5-19) 02/05/22 16:40 BUN 14 mg/dL (6-20) 02/05/22 16:40 Creatinine 0.9 mg/dL (0.7-1.2) 02/05/22 16:40 GFR Calculation 95.0 mL/min (90-130) 02/05/22 16:40 Glucose 90 mg/dL (65-115) 02/05/22 16:40 Calculated Osmolality 284 mOsm/kg (285-295) L 02/05/22 16:40 Calcium 9.3 mg/dL (8.5-10.5) 02/05/22 16:40 Troponin T Baseline 6 ng/L (0-15) 02/05/22 16:40 Troponin T 120 Minute 12.66 ng/L (0-15) 02/05/22 18:43 Delta Troponin T 6.66 ABS# (0-10) 02/05/22 18:43 TSH 1.97 uIU/mL (0.27-4.20) 02/05/22 16:40 Free T4 0.95 ng/dL (0.82-1.77) 02/05/22 16:40 Imaging Data Other Imaging: Radiologist's impression: [address] [address] XRay Report Signed Patient: Wicho Lugo Unit #: [id number] : 1985 Age/Sex: 36 / M ADM Date: 02/05/22 Loc: ER Room/Bed: Attending Dr: Ordering Provider/Ordering MD: Phylicia Hall MD Date of Service: 02/05/22 Procedure(s): XR chest 1V portable [id number] Accession Number(s): [id number] Report Number: [id number] PROCEDURE INFORMATION: Exam: XR Chest Exam date and time: 02/05/2022 4:34 PM Age: 36 years old Clinical indication: Other: Weakness; Sternal or substernal pain; Additional info: Chest pain TECHNIQUE: Imaging protocol: XR of the chest. Views: 1 view. COMPARISON: CR XR chest 1V portable [id number] 01/29/2022 5:29 PM FINDINGS: Lungs: Unremarkable. No consolidation. Pleural spaces: Unremarkable. No pleural effusion. No pneumothorax. Heart/Mediastinum: Unremarkable. No cardiomegaly. Bones/joints: Unremarkable. XR/XR chest 1V portable [id number] IMPRESSION: No acute findings. ? Dictated By: Maxi Frank Signed By: Maxi Frank Signed Date/Time: 02/05/22 1720 DD/ 1634 Discharge Plan Discharge Patient Disposition: Home Clinical Impression: Hypertension, Chest pain, Light headedness Condition: Stable Prescriptions: New amlodipine 5 mg tablet 5 mg PO DAILY 15 Days Qty: 15 0RF No Action propranolol 20 mg tablet 20 mg PO BID Qty: 60 1RF Rx Instructions: Take one tablet twice per day hydroxyzine HCl 50 mg tablet 100 mg PO BID PRN (Reason: anxiety) Qty: 60 1RF Rx Instructions: May take two tablets twice per day as needed for anxiety ziprasidone HCl [Geodon] 40 mg capsule 80 mg PO .evening Qty: 30 2RF Rx Instructions: Take two capsules every evening with 500 calorie of food Discharge Orders: Discharge ED (Routine); Ordered 02/05/22 Ordered By: Phylicia Hall Referrals: Tosin Maurice MD [Primary Care Provider] - Discharge Diet: Advance as tolerated Discharge Activity: Increase activity as tolerated Patient Instructions: Hypertension (ED) Activity Restrictions/Additional Instructions: You need to follow-up with your primary care provider for further adjustment of your blood pressure. Your blood pressure puts you at risk for developing strokes and heart attack. Therefore it is very important for you to follow-up with this number to see if the numbers improve gradually. Because blood pressure adjustment is a gradual process, were not able to change it in 1 visit. Therefore please log your blood pressure and follow-up with your primary care provider in the next 72 hours for further adjustment of your blood pressures. Stand Alone Forms: Work/School Release Coding Level of Care Code ED Assignment Desk Assistant for Aby 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
[2022-02-05] MEDS: diphenhydrAMINE 50 mg Capsule PO (20:07)
[2022-02-05] MEDS: metoclopramide oral liquid 5 mg/5 mL (ml) PO (20:17)
== END 2022-02-05 21:15 | disposition home or self-care (01) ==
PROVIDERS: Emergency Provider Emergency Medicine; PCP Family Medicine
DX: R07.9 Chest pain, unspecified (principal); I10 Essential (primary) hypertension; R42 Dizziness and giddiness; Z87.891 Personal history of nicotine dependence
CPT/HCPCS: 36415; 71045; 80048; 80053; 80061; 83036; 83721; 84439; 84443; 84484; 85025; 85378; 93005; 96360; 96361; 99284; J7030; Q0163

== ENCOUNTER 2022-02-26 14:42 | Emergency (ER) | payer MEDICAID, SELFPAY ==
[2022-02-09 15:30] VITALS: BP 142/106; BMI 44.5
--- NOTE | 2022-02-26 15:13 | ED_ITS ---
HPI - Neuro Symptoms/Deficit General: Chief Complaint: Extremity Injury, Upper Stated Complaint: L ARM NUMBNESS, SLURRED SPEECH Time Seen by Provider: 02/26/22 15:12 Source: patient Mode of arrival: EMS Limitations: no limitations History of Present Illness: 36-year-old male comes into the emergency room via ambulance complaining of chest discomfort. His boss that he was slurring his words is complaining some upper left chest pain and left arm numbness that has been going on for the last couple of days. He has not had any nausea vomiting diarrhea is not any shortness of breath cough diaphoresis. No other symptoms no known history of coronary disease he is not diabetic does not smoke. He does not have any appreciable slur at this time he does have a slight lisp Onset (ago): day(s) Location: speech History of same: No Severity: mild Quality: tingling Relieving factors: none Exacerbating factors: none On Anticoagulants: No Associated symptoms: Reports tingling; Deny chest pain, cough, diaphoresis, fevers/chills, headache(s), anorexia, malaise, nausea, seizures, short of breath, syncope, vertigo, vomiting or weakness Treatments Prior to Arrival: none Review of Systems Const: Denies: malaise or diaphoresis ENMT: Denies: throat pain, ear or mastoid pain, nasal discharge or nasal congestion Card: Denies: chest pain or syncope Resp: Denies: dyspnea, productive cough or non-productive cough GI: Denies: nausea or vomiting : Denies: flank pain, dysuria, urinary frequency or urinary urgency Skin/Breast: Denies: rash or pruritus Neuro: Denies: headache(s) or vertigo PFS ED PFSH: Medical History Chronic post-traumatic stress disorder Depression, major, recurrent, severe with psychosis History of attention deficit hyperactivity disorder (ADHD) History of substance use disorder last use of marijuana and alcohol reported as Jul 2021 last use of opiates, methamphetamines reported 2018 Idiopathic mild intellectual disability Surgical History No pertinent past surgical history Social History Smoking and tobacco status: former smoker Alcohol intake: never NIH stroke score NIHSS: Level Of Consciousness - 1a: 0 Level Of Consciousness Questions - 1b: Both Correct Level Of Consciousness Commands - 1c: Both Correct Best Gaze - 2: Normal Visual Dorsey - 3: No Visual Loss Facial Palsy - 4: Normal Motor Arm Right - 5: No Drift Motor Arm Left - 5: No Drift Motor Leg Right - 6: No Drift Motor Leg Left - 6: No Drift Limb Ataxia - 7: Absent Sensory - 8: Normal Best Language - 9: No Aphasia Dysarthia - 10: Normal Extinction And Inattention - 11: 0 Score: Total Score: 0 Physical Exam Const: COMMON NORMALS: no acute distress GENERAL APPEARANCE: cooperative and comfortable ORIENTATION/CONSCIOUSNESS: Yes awake, Yes oriented to person, Yes oriented to place and Yes oriented to time HENMT: COMMON NORMALS: normocephalic, atraumatic, hearing grossly normal yesenia aterally, external ears normal, EAC's normal, TM's normal bilaterally, Normal nasal mucous membranes and turbinates present, moist oral mucous membranes and oropharynx normal HEAD & SCALP: normocephalic and atraumatic NOSE: Normal nasal mucous membranes and turbinates present EXTERNAL EAR: Yes external ears normal EXTERNAL AUDITORY CANAL: EAC's normal TYMPANIC MEMBRANE: TM's normal bilaterally Eye: COMMON NORMALS: Equal, round and reactive pupils present, EOMs intact bilaterally, conjunctivae normal and no scleral icterus CONJUNCTIVA: Yes conjunctivae normal PUPIL: Yes Equal, round and reactive pupils present Neck/C-Spine: COMMON NORMALS: no JVD Resp: COMMON NORMALS: normal respiratory effort, No retractions, No use of accessory muscles and clear to auscultation bilaterally AUSCULTATION: clear to auscultation bilaterally Cardio: COMMON NORMALS: no JVD, regular rate, regular rhythm and No murmurs present (Cardio) RATE: regular rate RHYTHM: regular rhythm GI: COMMON NORMALS: Soft to palpation and No hepatosplenomegaly present AUSCULTATION: Yes normoactive bowel sounds PALPATION: Yes Soft to palpation, No Tenderness to palpation present (GI), No Guarding due to palpation present (GI) and Yes No hepatosplenomegaly present Extremity: COMMON NORMALS: normal to inspection, capillary refill normal, no clubbing, cyanosis or edema, no calf tenderness and no pedal edema Neuro: SENSORIUM/ORIENTATION: Yes oriented to person, Yes oriented to place and Yes oriented to time Skin: COMMON NORMALS: no rashes or lesions noted GENERAL SKIN EXAM: no rashes or lesions noted Course Vital Signs: Vital signs: Vital Signs Temperature 97.6 F 02/26/22 15:21 Pulse Rate 87 02/26/22 16:46 Respiratory Rate 20 H 02/26/22 16:46 Blood Pressure 156/104 02/26/22 16:46 Pulse Oximetry 100 02/26/22 16:46 MDM - Neuro Symptoms/Deficit Medical Decision Making Patient is in a score of 0. EKG and troponin are negative despite having had symptoms for several days. History not very suggestive of cardiac disease at this point. We will go and get him set up for an outpatient stress test I am going to put him on lisinopril for his blood pressure recheck with his primary care doctor worsening or change symptoms return to the emergency room. Medical Records I reviewed the patient's medical records. Lab Data I reviewed the patient's lab results. : 02/26/22 15:41 02/26/22 15:[address] 02/26/22 15:15 IMPRESSION: 1. No acute intracranial hemorrhage or edema. 2. Negative noncontrast head CT. Laboratory Results WBC 10.6 10^3/uL (4.0-10.0) H 02/26/22 15:41 RBC 4.80 10^6/uL (4.1-5.3) 02/26/22 15:41 Hgb 13.9 g/dL (11.7-16.6) 02/26/22 15:41 Hct 41.8 % (42.0-52.0) L 02/26/22 15:41 MCV 87.1 fl (80-94) 02/26/22 15:41 MCH 29.0 pg (28.0-34.0) 02/26/22 15:41 MCHC 33.3 g/dL (30.0-36.0) 02/26/22 15:41 RDW 13.0 % (12.1-15.1) 02/26/22 15:41 Plt Count 221 10^3/cmm (130-400) 02/26/22 15:41 MPV 9.2 fL (7.4-10.4) 02/26/22 15:41 Neut % (Auto) 66.0 % 02/26/22 15:41 Lymph % (Auto) 24.3 % 02/26/22 15:41 [place] % (Auto) 6.0 % 02/26/22 15:41 Eos % (Auto) 2.8 % 02/26/22 15:41 Baso % (Auto) 0.6 % 02/26/22 15:41 Neut # (Auto) 6.98 10^3/uL (1.8-7.7) 02/26/22 15:41 Lymph # (Auto) 2.6 10^3/uL (0.8-4.8) 02/26/22 15:41 [place] # (Auto) 0.6 10^3/uL (0.2-0.9) 02/26/22 15:41 Eos # (Auto) 0.3 10^3/uL (0.0-0.8) 02/26/22 15:41 Baso # (Auto) 0.1 10^3/uL (0.0-0.1) 02/26/22 15:41 Nucleated RBC % (auto) 0 % 02/26/22 15:41 Nucleated RBCs # 0.0 /100WBC 02/26/22 15:41 Sodium 136 mmol/L (136-145) 02/26/22 15:41 Potassium 3.7 mmol/L (3.5-5.1) 02/26/22 15:41 Chloride 103 mmol/L (98-107) 02/26/22 15:41 Carbon Dioxide 21 mmol/L (22-29) L 02/26/22 15:41 Anion Gap 15.7 (5-19) 02/26/22 15:41 BUN 13 mg/dL (6-20) 02/26/22 15:41 Creatinine 0.8 mg/dL (0.7-1.2) 02/26/22 15:41 GFR Calculation 108.8 mL/min (90-130) 02/26/22 15:41 Glucose 90 mg/dL (65-115) 02/26/22 15:41 Calculated Osmolality 282 mOsm/kg (285-295) L 02/26/22 15:41 Calcium 8.9 mg/dL (8.5-10.5) 02/26/22 15:41 Troponin T Gen 5 ng/L 7 ng/L (0-15) 02/26/22 15:41 Discharge Plan Discharge Patient Disposition: Home Clinical Impression: Hypertension, Atypical chest pain Condition: Stable Prescriptions: New lisinopril 20 mg tablet 20 mg PO DAILY Qty: 30 0RF No Action propranolol 20 mg tablet 20 mg PO BID Qty: 60 1RF hydroxyzine HCl 50 mg tablet 50 - 100 mg PO BID PRN (Reason: anxiety) 0RF Geodon 40 mg capsule 80 mg PO QPM 0RF Rx Instructions: with 500 calorie of food Discharge Orders: Discharge ED (Routine); Ordered 02/26/22 Ordered By: Americo Sheikh Referrals: Tosin Maurice MD [Physician] - Discharge Diet: Usual diet Discharge Activity: Limit activity as instructed Patient Instructions: Opioid Safety Activity Restrictions/Additional Instructions: Avoid exertional activity. Start lisinopril once daily for blood pressure recheck with your primary care doctor within the next week. cafe or restaurant manager will make arrangements. Outpatient Terrence arredondo stress test Coding Level of Care Code ED Showroom Sales Consultant for Aby Dixon
--- NOTE | 2022-02-26 15:15 | CT_ITS ---
WS: [id number] CT HEAD NONCONTRAST HISTORY: slurred speech TECHNIQUE: Contiguous axial imaging performed through the brain in 2.5 mm imaging. Bone and soft tiss ue windows. Sagittal and coronal reformats reviewed. All CT scans at [facility] use at least one of these dose optimization techniques: automated exposure control; mA and/or kV adjustment per pa tient size (includes targeted exams where dose is matched to clinical indication); or iterative recon struction. DLP: 1057.54 mGy.cm COMPARISON: 05/11/2014 No acute intracranial hemorrhage, midline shift or mass effect. No atrophy or prior infarcts or herniation. Ventricles: Normal size with no hydrocephalus. Paranasal sinuses: Mucous retention cyst or polyp in the RIGHT maxillary sinus. Mastoid air cells: Well pneumatized. Calvarium and scalp: Skull is intact with no soft tissue edema or swelling. CT/CT head wo con* [id number] IMPRESSION: 1. No acute intracranial hemorrhage or edema. 2. Negative noncontrast head CT.
[2022-02-26 15:21] VITALS: BP 162/109; PULSE 82; RESP 16; TEMP 36.4; O2SAT 97; BMI 43.1
[2022-02-26 16:46] VITALS: BP 156/104; PULSE 87; RESP 20; O2SAT 100
[2022-02-26 16:48] LABS: Basophils # 0.1 10^3/uL (0.0-0.1); Basophils % 0.6 %; Eosinophils # 0.3 10^3/uL (0.0-0.8); Eosinophils % 2.8 %; Hematocrit 41.8 % (42.0-52.0); Hemoglobin 13.9 g/dL (11.7-16.6); Lymphocytes # 2.6 10^3/uL (0.8-4.8); Lymphocytes % 24.3 %; Mean Corpuscular HGB Conc 33.3 g/dL (30.0-36.0); Mean Corpuscular Volume 87.1 fl (80-94); Mean Platelet Volume 9.2 fL (7.4-10.4); Monocytes # 0.6 10^3/uL (0.2-0.9); Neutrophils # 6.98 10^3/uL (1.8-7.7); Nucleated Red Blood Cells % 0 %; Platelet Count 221 10^3/cmm (130-400); White Blood Count 10.6 10^3/uL (4.0-10.0)
--- NOTE | 2022-02-26 16:52 | ECG_ITS ---
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 Measurements Intervals [place] Rate: 84 P: 61 MI: 176 QRS: 37 QRSD: 110 T: 25 QT: 383 QTc: 455 Interpretive Statements SINUS RHYTHM Compared to ECG 02/05/2022 17:06:25 Sinus tachycardia no longer present Electronically Signed On 02-27-2022 11:11:04 CDT by Padmini Ozuna M.D. [id number]
[2022-02-26 17:01] LABS: Blood Urea Nitrogen 13 mg/dL (6-20); Calcium 8.9 mg/dL (8.5-10.5); Carbon Dioxide 21 mmol/L (22-29); Chloride 103 mmol/L (98-107); Glomerular Filtration Rate 108.8 mL/min (90-130); Glucose 90 mg/dL (65-115); Osmolality Calculated 282 mOsm/kg (285-295); Sodium 136 mmol/L (136-145)
[2022-02-26 17:09] LABS: Anion Gap 15.7 (5-19); Potassium 3.7 mmol/L (3.5-5.1)
[2022-02-26 17:29] LABS: Troponin T (5th) Once 7 ng/L (0-15)
[2022-02-26 17:41] VITALS: BP 164/98; PULSE 89; RESP 21; O2SAT 98
--- NOTE | 2022-02-27 15:02 | DCPLANNER ---
Addendum entered by Shonda Noel 05/18/22 08:04: cattle manager received notification that patients insurance denied the stress test. cattle manager called patient and informed patient of this. Addendum entered by Shonda Noel 03/02/22 09:35: Omayra from centralized scheduling confirmed that they received fax for stress test. Addendum entered by Shonda Noel 02/27/22 15:15: Patient returned caseworker intake phone call. Patient stated that he wanted the stress test ordered and that his primary care physician is Dr. Najera at [facility]. cattle manager faxed signed order to centralized scheduling, who will call patient with appointment information. Original Note: cattle manager had message to schedule an outpatient stress test for patient. Patient does not have a primary care physician on file, showcase trimmer called phone number [phone] to speak with patient. cattle manager wanted to confirm that patient wanted to have the test scheduled and to confirm who patient sees for primary care. cattle manager was unable to speak with patient at this time, a voicemail was left for patient to return caseworker intake phone call.
== END 2022-02-26 17:58 | disposition home or self-care (01) ==
PROVIDERS: Emergency Provider Family Medicine
DX: R07.89 Other chest pain (principal); I10 Essential (primary) hypertension; Z87.891 Personal history of nicotine dependence
CPT/HCPCS: 70450; 80048; 84484; 85025; 93005; 99283

== ENCOUNTER → 2022-04-16 14:36 | Outpatient (BNVA) | payer MEDICAID, SELFPAY ==
[2022-04-08 10:26] VITALS: BP 142/106; BMI 44.5
== END ==
PROVIDERS: PCP Family Medicine; Visit Provider Counselor Professional
DX: F43.12 Post-traumatic stress disorder, chronic (principal); F41.9 Anxiety disorder, unspecified
CPT/HCPCS: 90832; 90834

== ENCOUNTER → 2022-04-30 15:22 | Outpatient (BNVA) | payer MEDICAID, SELFPAY ==
[2022-04-08 10:26] VITALS: BP 142/106; BMI 44.5
== END ==
PROVIDERS: PCP Family Medicine; Visit Provider Counselor Professional
DX: F43.12 Post-traumatic stress disorder, chronic (principal); F41.9 Anxiety disorder, unspecified
CPT/HCPCS: 90832

== ENCOUNTER → 2022-05-07 13:42 | Outpatient (BNVA) | payer MEDICAID, SELFPAY ==
[2022-04-08 10:26] VITALS: BP 142/106; BMI 44.5
== END ==
PROVIDERS: PCP Family Medicine; Visit Provider Counselor Professional
DX: F43.12 Post-traumatic stress disorder, chronic (principal); F41.9 Anxiety disorder, unspecified
CPT/HCPCS: 90834

== ENCOUNTER 2022-05-08 07:39 | Emergency (ER) | payer MEDICAID, SELFPAY ==
[2022-04-08 10:26] VITALS: BP 142/106; BMI 44.5
[2022-05-08 07:41] VITALS: BP 152/96; PULSE 90; RESP 18; TEMP 36.4; O2SAT 97; BMI 45.6
--- NOTE | 2022-05-08 08:45 | W.ED.GENADLT ---
HPI - General Adult General: Chief complaint: General Medical Stated complaint: not feeling well. Time Seen by Provider: 05/08/22 07:43 History of Present Illness: Patient comes in with cold symptoms including cough, congestion, body aches, headache. States he woke up this morning with the symptoms. States he was recently exposed to somebody who has COVID. Denies any significant shortness of breath, vomiting, diarrhea. Associated symptoms: Reports chest pain; Deny dyspnea, headache(s), nausea, rash, palpitations or vomiting Review of Systems Const: Reports: fever(s) and body aches Eyes: Denies: change in vision or blurry vision ENMT: Reports: throat pain; Denies: odynophagia Card: Reports: chest pain; Denies: palpitations Resp: Reports: non-productive cough; Denies: dyspnea GI: Denies: abdominal pain, nausea or vomiting : Denies: flank pain or dysuria Musc: Denies: neck pain or back pain Skin/Breast: Denies: rash or pruritus Neuro: Denies: headache(s) or numbness in extremities Psych: Denies: anxiety or change in appetite Endo: Denies: polyuria or excessive sweating PFSH ED PFSH: Medical History Chronic post-traumatic stress disorder Depression, major, recurrent, severe with psychosis History of attention deficit hyperactivity disorder (ADHD) History of substance use disorder last use of marijuana and alcohol reported as Jul 2021 last use of opiates, methamphetamines reported 2018 Idiopathic mild intellectual disability Surgical History No pertinent past surgical history Social History Smoking and tobacco status: never smoked Alcohol intake: never Physical Exam Const: COMMON NORMALS: no acute distress, patient oriented x3, healthy appearing and alert HENMT: COMMON NORMALS: normocephalic and atraumatic HEAD & SCALP: normocephalic and atraumatic Eye: COMMON NORMALS: Equal, round and reactive pupils present and EOMs intact bilaterally PUPIL: Yes Equal, round and reactive pupils present Neck/C-Spine: COMMON NORMALS: full ROM and supple Resp: COMMON NORMALS: normal respiratory effort, No retractions and No use of accessory muscles Cardio: COMMON NORMALS: regular rate and regular rhythm RATE: regular rate RHYTHM: regular rhythm GI: COMMON NORMALS: Normal to inspection, nondistended, normoactive bowel sounds present, Soft to palpation and non-tender PALPATION: Yes Soft to palpation Back/Pelvis: COMMON NORMALS: thoracic and lumbar spine normal to inspection and no thoracic nor lumbar tenderness Extremity: COMMON NORMALS: normal to inspection and full ROM Neuro: COMMON NORMALS: patient oriented x3 SENSORIUM/ORIENTATION: Yes alert Psych: COMMON NORMALS: mental status grossly normal and cooperative Skin: COMMON NORMALS: no rashes or lesions noted and no wounds GENERAL SKIN EXAM: no rashes or lesions noted Course Vital Signs: Vital signs: Vital Signs Temperature 97.6 F 05/08/22 07:41 Pulse Rate 90 05/08/22 07:41 Respiratory Rate 18 05/08/22 07:41 Blood Pressure 152/96 05/08/22 07:41 Pulse Oximetry 97 05/08/22 07:41 MDM - General Adult Medical Decision Making Patient comes in with cold symptoms including cough, congestion, body aches, headache. States he woke up this morning with the symptoms. States he was recently exposed to somebody who has COVID. Denies any significant shortness of breath, vomiting, diarrhea. Physical exam is unremarkable. Swab for COVID for the patient's employer, and discharged with precautions return for worsening or changing symptoms. Discharge Plan Discharge Patient Disposition: Home Clinical Impression: Person under investigation for COVID-19 Condition: Stable Prescriptions: No Action propranolol 20 mg tablet 20 mg PO .morning Qty: 30 2RF Rx Instructions: Take one tablet every morning duloxetine [Cymbalta] 30 mg capsule,delayed release(DR/EC) 30 mg PO .morning Qty: 30 1RF Rx Instructions: Take one capsule every morning amlodipine 5 mg tablet 5 mg PO DAILY Qty: 30 1RF hydroxyzine HCl 50 mg tablet 50 - 100 mg PO BID PRN (Reason: anxiety) 0RF Discharge Orders: Discharge ED (Routine); Ordered 05/08/22 Ordered By: Preet Frost Referrals: Drake Hernandez, [Primary Care Provider] - Stand Alone Forms: Work/School Release Coding Level of Care Code ED Service Manager for [facility]
[2022-05-08 10:55] LABS: Adenovirus Not Detected (NOT DETECT); Chlamydia Pneumoniae Not Detected (NOT DETECT); Coronavirus 229E,HKU1,NL63,OC4 Not Detected (NOT DETECT); Human Metapneumovirus Not Detected (NOT DETECT); Human Rhinovirus/Enterovirus Not Detected (NOT DETECT); Influenza A Not Detected (NOT DETECT); Influenza A H1 Not Detected (NOT DETECT); Influenza A H1-2009 Not Detected (NOT DETECT); Influenza A H3 Not Detected (NOT DETECT); Influenza B Not Detected (NOT DETECT); Mycoplasma Pneumoniae Not Detected (NOT DETECT); Parainfluenza Virus Type 1 Not Detected (NOT DETECT); Parainfluenza Virus Type 2 Not Detected (NOT DETECT); Parainfluenza Virus Type 3 Not Detected (NOT DETECT); Parainfluenza Virus Type 4 Not Detected (NOT DETECT); Respiratory Syncytial Virus A Not Detected (NOT DETECT); Respiratory Syncytial Virus B Not Detected (NOT DETECT); SARS-COV-2 Not Detected (NOT DETECT)
== END 2022-05-08 08:54 | disposition home or self-care (01) ==
PROVIDERS: Emergency Provider Emergency Medicine; PCP Family Medicine
DX: R05.9 Cough, unspecified (principal); R51.9 Headache, unspecified; M79.10 Myalgia, unspecified site; Z20.822 Contact with and (suspected) exposure to COVID-19
CPT/HCPCS: 87635; 99282

== ENCOUNTER 2022-05-10 00:34 | Emergency (ER) | payer MEDICAID, SELFPAY ==
[2022-04-08 10:26] VITALS: BP 142/106; BMI 44.5
[2022-05-10 00:38] VITALS: BP 166/105; PULSE 97; RESP 22; TEMP 36.4; O2SAT 94; BMI 45.0
--- NOTE | 2022-05-10 00:46 | XRR_ITS ---
PROCEDURE INFORMATION: Exam: XR Chest Exam date and time: 05/10/2022 1:17 AM Age: 36 years old Clinical indication: Pain; Chest pressure; Additional info: Cp TECHNIQUE: Imaging protocol: XR of the chest. Views: 1 view. COMPARISON: CR XR chest 1V portable [id number] 02/05/2022 4:44 PM FINDINGS: Lungs: Unremarkable. No consolidation. Pleural spaces: Unremarkable. No pleural effusion. No pneumothorax. Heart/Mediastinum: Unremarkable. No cardiomegaly. Bones/joints: Unremarkable. XR/XR chest 1V portable [id number] IMPRESSION: No acute findings.
--- NOTE | 2022-05-10 00:47 | ECG_ITS ---
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 Measurements Intervals [place] Rate: 100 P: 47 DE: 145 QRS: 28 QRSD: 108 T: 52 QT: 341 QTc: 440 Interpretive Statements SINUS TACHYCARDIA ABNORMAL RHYTHM ECG Compared to ECG 02/26/2022 16:57:44 Sinus rhythm no longer present Electronically Signed On 05-10-2022 21:12:45 CDT by Angelia Olea M.D. [email or web address] medical [email or web address] [id number] f
--- NOTE | 2022-05-10 01:09 | W.ED.CHESTPA ---
HPI - Chest Pain General: Chief Complaint: Chest Pain Stated Complaint: CP/N/V Time Seen by Provider: 05/10/22 00:36 Source: patient Mode of arrival: ambulatory Limitations: no limitations History of Present Illness: 36-year-old male states over the last 2 days he is been feeling ill. He states that he has been having headache along with chest pain body aches nausea and vomiting. He was seen here 2 days ago to be tested for COVID and it was negative. He states that he has not felt any better. He denies any worsening proving factors denies any fevers. Denies any shortness of breath or cough. Associated symptoms: Reports nausea and vomiting; Deny abdominal pain, dyspnea or fever(s) Review of Systems Const: Reports: body aches; Denies: fever(s), chills or change in appetite Eyes: Denies: blurry vision or eye discomfort ENMT: Denies: throat pain or dental pain Card: Reports: chest pain Resp: Denies: dyspnea GI: Reports: nausea and vomiting; Denies: abdominal pain or diarrhea : Denies: dysuria Musc: Denies: neck pain or back pain Skin/Breast: Denies: rash Neuro: Reports: headache(s) Psych: Denies: depression Kb/Lymph: Denies: easy bruising All/Imm: Denies: urticaria PFSH ED PFSH: Medical History Chronic post-traumatic stress disorder Depression, major, recurrent, severe with psychosis History of attention deficit hyperactivity disorder (ADHD) History of substance use disorder last use of marijuana and alcohol reported as Jul 2021 last use of opiates, methamphetamines reported 2018 Idiopathic mild intellectual disability Surgical History No pertinent past surgical history Social History Smoking and tobacco status: never smoked Alcohol intake: never Physical Exam Const: COMMON NORMALS: no acute distress, patient oriented x3 and healthy appearing HENMT: COMMON NORMALS: normocephalic and atraumatic HEAD & SCALP: normocephalic and atraumatic Eye: COMMON NORMALS: Equal, round and reactive pupils present and EOMs intact bilaterally PUPIL: Yes Equal, round and reactive pupils present Neck/C-Spine: COMMON NORMALS: full ROM and supple Chest: COMMONS NORMALS: normal inspection of the chest and normal palpation of entire chest wall Resp: COMMON NORMALS: normal respiratory effort, No retractions, No use of accessory muscles and clear to auscultation bilaterally AUSCULTATION: clear to auscultation bilaterally Cardio: COMMON NORMALS: regular rate, regular rhythm and No murmurs present (Cardio) RATE: regular rate RHYTHM: regular rhythm GI: COMMON NORMALS: Normal to inspection, nondistended, normoactive bowel sounds present, Soft to palpation, non-tender and no masses PALPATION: Yes Soft to palpation Extremity: COMMON NORMALS: normal to inspection and full ROM Neuro: COMMON NORMALS: patient oriented x3, moves all extremities and no focal motor deficits Psych: COMMON NORMALS: mental status grossly normal, Normal thought process present and cooperative THOUGHT PROCESS: Normal thought process present Skin: COMMON NORMALS: no rashes or lesions noted and no wounds GENERAL SKIN EXAM: no rashes or lesions noted Course Vital Signs: Vital signs: Vital Signs Temperature 97.5 F L 05/10/22 00:38 Pulse Rate 88 05/10/22 02:37 Respiratory Rate 18 05/10/22 02:37 Blood Pressure 177/127 05/10/22 02:37 Pulse Oximetry 96 05/10/22 02:37 MDM - Chest Pain Medical Decision Making Patient presents here with headache along with body aches and nausea and some chest pain likely a viral illness he is well-appearing here his COVID was -2 days ago lab work here is all normal he feels improved after fluids and Reglan and Benadryl he does have high blood pressure with a history of blood pressure he is to take his meds at home he is to follow-up with PCP and return if worsening he understands agrees plan. Lab Data : 05/10/22 02:05 05/10/22 02:05 Laboratory Results WBC 8.3 10^3/uL (4.0-10.0) 05/10/22 02:05 RBC 5.08 10^6/uL (4.1-5.3) 05/10/22 02:05 Hgb 14.6 g/dL (11.7-16.6) 05/10/22 02:05 Hct 42.1 % (42.0-52.0) 05/10/22 02:05 MCV 82.9 fl (80-94) 05/10/22 02:05 MCH 28.7 pg (28.0-34.0) 05/10/22 02:05 MCHC 34.7 g/dL (30.0-36.0) 05/10/22 02:05 RDW 12.0 % (12.1-15.1) L 05/10/22 02:05 Plt Count 219 10^3/cmm (130-400) 05/10/22 02:05 MPV 8.8 fL (7.4-10.4) 05/10/22 02:05 Neut % (Auto) 52.1 % 05/10/22 02:05 Lymph % (Auto) 36.2 % 05/10/22 02:05 [place] % (Auto) 7.0 % 05/10/22 02:05 Eos % (Auto) 3.7 % 05/10/22 02:05 Baso % (Auto) 0.6 % 05/10/22 02:05 Neut # (Auto) 4.33 10^3/uL (1.8-7.7) 05/10/22 02:05 Lymph # (Auto) 3.0 10^3/uL (0.8-4.8) 05/10/22 02:05 [place] # (Auto) 0.6 10^3/uL (0.2-0.9) 05/10/22 02:05 Eos # (Auto) 0.3 10^3/uL (0.0-0.8) 05/10/22 02:05 Baso # (Auto) 0.1 10^3/uL (0.0-0.1) 05/10/22 02:05 Nucleated RBC % (auto) 0 % 05/10/22 02:05 Nucleated RBCs # 0.0 /100WBC 05/10/22 02:05 Sodium 136 mmol/L (136-145) 05/10/22 02:05 Potassium 3.9 mmol/L (3.5-5.1) 05/10/22 02:05 Chloride 103 mmol/L (98-107) 05/10/22 02:05 Carbon Dioxide 21 mmol/L (22-29) L 05/10/22 02:05 Anion Gap 15.9 (5-19) 05/10/22 02:05 BUN 12 mg/dL (6-20) 05/10/22 02:05 Creatinine 0.8 mg/dL (0.7-1.2) 05/10/22 02:05 GFR Calculation 108.8 mL/min (90-130) 05/10/22 02:05 Glucose 104 mg/dL (65-115) 05/10/22 02:05 Calculated Osmolality 282 mOsm/kg (285-295) L 05/10/22 02:05 Calcium 8.7 mg/dL (8.5-10.5) 05/10/22 02:05 Total Bilirubin 0.2 mg/dL (0.15-1.2) 05/10/22 02:05 AST 22 U/L (0-40) 05/10/22 02:05 ALT 38 U/L (0-41) 05/10/22 02:05 Alkaline Phosphatase 65 IU/L (40-130) 05/10/22 02:05 Troponin T Baseline 8 ng/L (0-15) 05/10/22 02:05 Total Protein 7.2 g/dL (6.6-8.7) 05/10/22 02:05 Albumin 4.3 g/dL (3.5-5.2) 05/10/22 02:05 Globulin 2.9 g/dL (1.3-4.6) 05/10/22 02:05 EKG Data EKG 1: I personally reviewed and interpreted this EKG as follows: EKG interpretation date: 05/10/22 EKG interpretation time: 00:44 Interpretation: sinus tach hr [address] or t wave abnormalities qrs 108 qtc 398 Discharge Plan Discharge Patient Disposition: Home Clinical Impression: Chest pain, Headache, Nausea Condition: Stable Prescriptions: New ondansetron 4 mg tablet,disintegrating 4 mg PO Q6H PRN (Reason: nausea and vomiting) Qty: 14 0RF No Action propranolol 20 mg tablet 20 mg PO .morning Qty: 30 2RF Rx Instructions: Take one tablet every morning duloxetine [Cymbalta] 30 mg capsule,delayed release(DR/EC) 30 mg PO .morning Qty: 30 1RF Rx Instructions: Take one capsule every morning amlodipine 5 mg tablet 5 mg PO DAILY Qty: 30 1RF hydroxyzine HCl 50 mg tablet 50 - 100 mg PO BID PRN (Reason: anxiety) 0RF Discharge Orders: Discharge ED (Routine); Ordered 05/10/22 Ordered By: Bethany Carl Referrals: Drake Hernandez DO [Primary Care Provider] - 1-3 days Discharge Diet: Advance as tolerated Discharge Activity: Resume usual activity Patient Instructions: Chest Pain (ED), Acute Headache (ED) Coding Level of Care Code ED Nurse Practitioner Physicians Assistant for Chg 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
[2022-05-10 02:00] VITALS: BP 159/122; PULSE 90; RESP 26; O2SAT 96
[2022-05-10] MEDS: metoclopramide 5 mg/mL SDV 2 mL 10 MG IVP (02:13)
[2022-05-10] MEDS: diphenhydrAMINE 50 mg/mL SDV 1mL IVP (02:14)
[2022-05-10 02:17] LABS: Basophils # 0.1 10^3/uL (0.0-0.1); Basophils % 0.6 %; Eosinophils # 0.3 10^3/uL (0.0-0.8); Eosinophils % 3.7 %; Hematocrit 42.1 % (42.0-52.0); Hemoglobin 14.6 g/dL (11.7-16.6); Lymphocytes % 36.2 %; Mean Corpuscular HGB Conc 34.7 g/dL (30.0-36.0); Mean Corpuscular Hemoglobin 28.7 pg (28.0-34.0); Mean Corpuscular Volume 82.9 fl (80-94); Mean Platelet Volume 8.8 fL (7.4-10.4); Monocytes # 0.6 10^3/uL (0.2-0.9); Neutrophils # 4.33 10^3/uL (1.8-7.7); Neutrophils % 52.1 %; Nucleated Red Blood Cells % 0 %; Platelet Count 219 10^3/cmm (130-400); Red Blood Count 5.08 10^6/uL (4.1-5.3); White Blood Count 8.3 10^3/uL (4.0-10.0)
[2022-05-10] MEDS: sodium chloride 0.9% 1,000 ML 999 ML IV (02:18)
[2022-05-10 02:33] LABS: Troponin(5th) Baseline 8 ng/L (0-15)
[2022-05-10 02:35] LABS: Alanine Aminotransferase 38 U/L (0-41); Albumin Level 4.3 g/dL (3.5-5.2); Alkaline Phosphatase 65 IU/L (40-130); Anion Gap 15.9 (5-19); Aspartate Amino Transferase 22 U/L (0-40); Blood Urea Nitrogen 12 mg/dL (6-20); Calcium 8.7 mg/dL (8.5-10.5); Carbon Dioxide 21 mmol/L (22-29); Chloride 103 mmol/L (98-107); Globulin 2.9 g/dL (1.3-4.6); Glomerular Filtration Rate 108.8 mL/min (90-130); Glucose 104 mg/dL (65-115); Osmolality Calculated 282 mOsm/kg (285-295); Potassium 3.9 mmol/L (3.5-5.1); Sodium 136 mmol/L (136-145); Total Bilirubin 0.2 mg/dL (0.15-1.2); Total Protein 7.2 g/dL (6.6-8.7)
[2022-05-10 02:37] VITALS: BP 177/127; PULSE 88; RESP 18; O2SAT 96
[2022-05-10 03:00] VITALS: BP 165/105; PULSE 91; RESP 15; O2SAT 96
[2022-05-10 03:01] VITALS: BP 165/105; PULSE 91; RESP 15; O2SAT 96
== END 2022-05-10 03:00 | disposition home or self-care (01) ==
PROVIDERS: Emergency Provider Emergency Medicine; PCP Family Medicine
DX: R07.9 Chest pain, unspecified (principal); R51.9 Headache, unspecified; R11.2 Nausea with vomiting, unspecified; I10 Essential (primary) hypertension
CPT/HCPCS: 71045; 80053; 84484; 85025; 93005; 96361; 96374; 96375; 99285; J1200; J2765; J7030

== ENCOUNTER → 2022-05-21 11:37 | Outpatient (BNVA) | payer OTHER, SELFPAY ==
[2022-04-08 10:26] VITALS: BP 142/106; BMI 44.5
== END ==
PROVIDERS: PCP Family Medicine; Visit Provider Counselor Professional
DX: F43.12 Post-traumatic stress disorder, chronic (principal); F41.9 Anxiety disorder, unspecified
CPT/HCPCS: 90834

== ENCOUNTER → 2022-05-27 14:45 | Outpatient (BNVA) | payer OTHER, SELFPAY ==
[2022-04-08 10:26] VITALS: BP 142/106; BMI 44.5
== END ==
PROVIDERS: PCP Family Medicine; Visit Provider Counselor Professional
DX: F43.12 Post-traumatic stress disorder, chronic (principal); F41.9 Anxiety disorder, unspecified
CPT/HCPCS: 90834

== ENCOUNTER → 2022-05-28 13:07 | Outpatient (BNVA) | payer OTHER, SELFPAY ==
[2022-04-08 10:26] VITALS: BP 142/106; BMI 44.5
== END ==
PROVIDERS: PCP Family Medicine; Visit Provider Nurse Practitioner Psychiatric/Mental Health
DX: F33.3 Major depressive disorder, recurrent, severe with psychotic symptoms (principal); F43.12 Post-traumatic stress disorder, chronic; F70 Mild intellectual disabilities; I10 Essential (primary) hypertension; R07.89 Other chest pain; Z86.59 Personal history of other mental and behavioral disorders; Z87.898 Personal history of other specified conditions
CPT/HCPCS: 99214

== ENCOUNTER 2022-06-03 13:16 | Emergency (ER) | payer MEDICAID, SELFPAY ==
[2022-04-08 10:26] VITALS: BP 142/106; BMI 44.5
[2022-06-03 13:22] VITALS: BP 143/95; PULSE 92; RESP 18; TEMP 36.7; O2SAT 97; BMI 45.0
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
== END 2022-06-03 15:45 | disposition home or self-care (01) ==
PROVIDERS: Emergency Provider Physician Assistant; PCP Family Medicine
DX: S46.911A Strain of unspecified muscle, fascia and tendon at shoulder and upper arm level, right arm, initial encounter (principal); X50.9XXA Other and unspecified overexertion or strenuous movements or postures, initial encounter; M54.2 Cervicalgia
CPT/HCPCS: 99283

== ENCOUNTER 2022-07-13 14:53 | Emergency (ER) | payer MEDICAID, SELFPAY ==
[2022-04-08 10:26] VITALS: BP 142/106; BMI 44.5
--- NOTE | 2022-07-13 15:10 | XR_ITS ---
WS: [id number] Exam: XR chest 1V portable [id number] Date/Time of Exam: 07/13/2022 3:10 PM Reason For Exam: chest pain Comparison 05/10/2022. Findings: The lungs are clear and fully expanded. Costophrenic angles are sharp. No infiltrates. Bronchovascula r relief appears normal. Cardiac silhouette is unremarkable. Bony elements are intact. XR/XR chest 1V portable [id number] IMPRESSION: Unremarkable chest radiograph.
--- NOTE | 2022-07-13 15:45 | ECG_ITS ---
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 Measurements Intervals [place] Rate: 98 P: 45 VA: 162 QRS: 80 QRSD: 102 T: 34 QT: 350 QTc: 448 Interpretive Statements SINUS RHYTHM Compared to ECG 05/10/2022 00:44:07 Sinus tachycardia no longer present Electronically Signed On 07-13-2022 17:34:49 CDT by Bharat Payton M.D. [id number]
[2022-07-13 15:46] VITALS: BP 152/108; PULSE 97; RESP 18; TEMP 36.8; O2SAT 96; BMI 43.7
[2022-07-13 19:09] LABS: Basophils # 0.1 10^3/uL (0.0-0.1); Basophils % 0.6 %; Eosinophils # 0.3 10^3/uL (0.0-0.8); Eosinophils % 3.4 %; Hematocrit 43.4 % (42.0-52.0); Hemoglobin 14.5 g/dL (11.7-16.6); Lymphocytes # 3.2 10^3/uL (0.8-4.8); Mean Corpuscular HGB Conc 33.4 g/dL (30.0-36.0); Mean Corpuscular Hemoglobin 28.9 pg (28.0-34.0); Mean Corpuscular Volume 86.6 fl (80-94); Mean Platelet Volume 8.9 fL (7.4-10.4); Monocytes # 0.6 10^3/uL (0.2-0.9); Neutrophils # 4.19 10^3/uL (1.8-7.7); Neutrophils % 50.5 %; Nucleated Red Blood Cells % 0 %; Platelet Count 243 10^3/cmm (130-400); Red Blood Count 5.01 10^6/uL (4.1-5.3); White Blood Count 8.3 10^3/uL (4.0-10.0)
[2022-07-13 19:41] VITALS: BP 164/111; PULSE 96; RESP 16; O2SAT 98
--- NOTE | 2022-07-13 19:43 | W.ED.CHESTPA ---
HPI - Chest Pain General: Chief Complaint: Chest Pain Stated Complaint: chest pain, memory loss Time Seen by Provider: 07/13/22 19:20 Source: patient Mode of arrival: ambulatory Limitations: no limitations History of Present Illness: 36-year-old male states over the last 1 to 2 weeks he states he is just not felt well states has had headaches nausea vomiting chest pain body aches and generalized weakness he states he does not take his propanolol his blood pressures been running high as well he is also supposed to be on amlodipine. He is in no distress currently states he has headaches mild nature rates it a 1 out of 10. Denies any fevers denies any cough. Associated symptoms: Reports nausea and vomiting; Deny abdominal pain, dyspnea or fever(s) Review of Systems Const: Reports: body aches; Denies: fever(s), chills or change in appetite Eyes: Denies: blurry vision or eye discomfort ENMT: Denies: throat pain or dental pain Card: Reports: chest pain Resp: Denies: dyspnea GI: Reports: nausea, vomiting and diarrhea; Denies: abdominal pain : Denies: dysuria Musc: Denies: neck pain or back pain Skin/Breast: Denies: rash Neuro: Denies: headache(s) Psych: Denies: depression Kb/Lymph: Denies: easy bruising All/Imm: Denies: urticaria PFS ED PFSH: Medical History Chronic post-traumatic stress disorder Depression, major, recurrent, severe with psychosis History of attention deficit hyperactivity disorder (ADHD) History of substance use disorder last use of alcohol reported as Jul 2021 last use of opiates, methamphetamines reported 2018 Idiopathic mild intellectual disability Surgical History No pertinent past surgical history Social History Smoking and tobacco status: never smoked Alcohol intake: never Physical Exam Const: COMMON NORMALS: no acute distress, patient oriented x3 and healthy appearing HENMT: COMMON NORMALS: normocephalic and atraumatic HEAD & SCALP: normocephalic and atraumatic Eye: COMMON NORMALS: Equal, round and reactive pupils present and EOMs intact bilaterally PUPIL: Yes Equal, round and reactive pupils present Neck/C-Spine: COMMON NORMALS: full ROM and supple Chest: COMMONS NORMALS: normal inspection of the chest and normal palpation of entire chest wall Resp: COMMON NORMALS: normal respiratory effort, No retractions, No use of accessory muscles and clear to auscultation bilaterally AUSCULTATION: clear to auscultation bilaterally Cardio: COMMON NORMALS: regular rate, regular rhythm and No murmurs present (Cardio) RATE: regular rate RHYTHM: regular rhythm GI: COMMON NORMALS: Normal to inspection, nondistended, normoactive bowel sounds present, Soft to palpation, non-tender and no masses PALPATION: Yes Soft to palpation Extremity: COMMON NORMALS: normal to inspection and full ROM Neuro: COMMON NORMALS: patient oriented x3, moves all extremities and no focal motor deficits Psych: COMMON NORMALS: mental status grossly normal, Normal thought process present and cooperative THOUGHT PROCESS: Normal thought process present Skin: COMMON NORMALS: no rashes or lesions noted and no wounds GENERAL SKIN EXAM: no rashes or lesions noted Course Vital Signs: Vital signs: Vital Signs Temperature 98.2 F 07/13/22 15:46 Pulse Rate 87 07/13/22 20:49 Respiratory Rate 18 07/13/22 20:49 Blood Pressure 152/112 07/13/22 20:49 Pulse Oximetry 97 07/13/22 20:49 Oxygen Delivery Me thod 07/13/22 19:41 MDM - Chest Pain Medical Decision Making Patient presents here with multiple complaints including chest pain patient's blood work including troponins here are normal he is hypertensive but has not been taking his meds we will refill his meds for him he stable for discharge at this time he is to follow-up his PCP and return if worsening he understands agrees to plan. Lab Data : 07/13/22 18:51 07/13/22 18:51 Radiology Impressions Chest X-Ray 07/13/22 15:10 IMPRESSION: Unremarkable chest radiograph. Laboratory Results WBC 8.3 10^3/uL (4.0-10.0) 07/13/22 18:51 RBC 5.01 10^6/uL (4.1-5.3) 07/13/22 18:51 Hgb 14.5 g/dL (11.7-16.6) 07/13/22 18:51 Hct 43.4 % (42.0-52.0) 07/13/22 18:51 MCV 86.6 fl (80-94) 07/13/22 18:51 MCH 28.9 pg (28.0-34.0) 07/13/22 18:51 MCHC 33.4 g/dL (30.0-36.0) 07/13/22 18:51 RDW 13.0 % (12.1-15.1) 07/13/22 18:51 Plt Count 243 10^3/cmm (130-400) 07/13/22 18:51 MPV 8.9 fL (7.4-10.4) 07/13/22 18:51 Neut % (Auto) 50.5 % 07/13/22 18:51 Lymph % (Auto) 38.0 % 07/13/22 18:51 [place] % (Auto) 7.0 % 07/13/22 18:51 Eos % (Auto) 3.4 % 07/13/22 18:51 Baso % (Auto) 0.6 % 07/13/22 18:51 Neut # (Auto) 4.19 10^3/uL (1.8-7.7) 07/13/22 18:51 Lymph # (Auto) 3.2 10^3/uL (0.8-4.8) 07/13/22 18:51 [place] # (Auto) 0.6 10^3/uL (0.2-0.9) 07/13/22 18:51 Eos # (Auto) 0.3 10^3/uL (0.0-0.8) 07/13/22 18:51 Baso # (Auto) 0.1 10^3/uL (0.0-0.1) 07/13/22 18:51 Nucleated RBC % (auto) 0 % 07/13/22 18:51 Nucleated RBCs # 0.0 /100WBC 07/13/22 18:51 Sodium 142 mmol/L (136-145) 07/13/22 18:51 Potassium 4.3 mmol/L (3.5-5.1) 07/13/22 18:51 Chloride 107 mmol/L (98-107) 07/13/22 18:51 Carbon Dioxide 22 mmol/L (22-29) 07/13/22 18:51 Anion Gap 17.3 (5-19) 07/13/22 18:51 BUN 13 mg/dL (6-20) 07/13/22 18:51 Creatinine 0.9 mg/dL (0.7-1.2) 07/13/22 18:51 GFR Calculation 95.0 mL/min (90-130) 07/13/22 18:51 Glucose 99 mg/dL (65-115) 07/13/22 18:51 Calculated Osmolality 294 mOsm/kg (285-295) 07/13/22 18:51 Calcium 9.0 mg/dL (8.5-10.5) 07/13/22 18:51 Total Bilirubin 0.2 mg/dL (0.15-1.2) 07/13/22 18:51 AST 27 U/L (0-40) 07/13/22 18:51 ALT 45 U/L (0-41) H 07/13/22 18:51 Alkaline Phosphatase 69 U/L (40-130) 07/13/22 18:51 Troponin T Baseline 7 ng/L (0-15) 07/13/22 18:51 Troponin T 120 Minute 6.91 ng/L (0-15) 07/13/22 19:38 Delta Troponin T -0.09 ABS# (0-10) L 07/13/22 19:38 Total Protein 7.3 g/dL (6.6-8.7) 07/13/22 18:51 Albumin 4.4 g/dL (3.5-5.2) 07/13/22 18:51 Globulin 2.9 g/dL (1.3-4.6) 07/13/22 18:51 SARS-CoV-2 Ag (Rapid) Negative (Negative) 07/13/22 19:58 EKG Data EKG 1: I personally reviewed and interpreted this EKG as follows: EKG interpretation date: 07/13/22 EKG interpretation time: 15:45 Interpretation: nsr hr [address] or t wave abnormalities qrs 102 qtc 405 Discharge Plan Discharge Patient Disposition: Home Clinical Impression: Chest pain, Hypertension Prescriptions: Continued amlodipine 5 mg tablet 5 mg PO DAILY Qty: 30 3RF propranolol 20 mg tablet 20 mg PO BID Qty: 60 2RF Rx Instructions: Take one tablet twice per day No Action duloxetine [Cymbalta] 30 mg capsule,delayed release(DR/EC) 30 mg PO .morning Qty: 30 2RF Rx Instructions: Take one capsule every morning diclofenac sodium 50 mg tablet,delayed release (DR/EC) 50 mg PO Q12H PRN (Reason: pain) Qty: 20 0RF Medrol (Bhupendra) 4 mg tablets,dose pack See Rx Instructions .ROUTE .COMPLEX Qty: 21 0RF Rx Instructions: orally per package directions ondansetron 4 mg tablet,disintegrating 4 mg PO Q6H PRN (Reason: nausea and vomiting) Qty: 14 0RF Discharge Orders: Discharge ED (Routine); Ordered 07/13/22 Ordered By: Bethany Carl Referrals: Drake Hernandez, [Primary Care Provider] - 1-3 days Discharge Diet: Advance as tolerated Discharge Activity: Resume usual activity Patient Instructions: Chest Pain (ED), Hypertension (ED) Stand Alone Forms: Work/School Release Coding Level of Care Code ED Concessions Manager for Chg 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
[2022-07-13] MEDS: labetalol 5 mg/mL SDV 20mL 10 MG IVP (19:54)
[2022-07-13 19:55] LABS: Troponin(5th) Baseline 7 ng/L (0-15)
[2022-07-13] MEDS: sodium chloride 0.9% 1,000 ML 30 ML IV (19:56)
[2022-07-13 19:59] LABS: Alanine Aminotransferase 45 U/L (0-41); Albumin Level 4.4 g/dL (3.5-5.2); Alkaline Phosphatase 69 U/L (40-130); Blood Urea Nitrogen 13 mg/dL (6-20); Carbon Dioxide 22 mmol/L (22-29); Chloride 107 mmol/L (98-107); Globulin 2.9 g/dL (1.3-4.6); Glucose 99 mg/dL (65-115); Osmolality Calculated 294 mOsm/kg (285-295); Sodium 142 mmol/L (136-145); Total Bilirubin 0.2 mg/dL (0.15-1.2); Total Protein 7.3 g/dL (6.6-8.7)
[2022-07-13 20:00] LABS: Anion Gap 17.3 (5-19); Aspartate Amino Transferase 27 U/L (0-40); Potassium 4.3 mmol/L (3.5-5.1)
[2022-07-13 20:14] LABS: Troponin 5 2HR 6.91 ng/L (0-15)
[2022-07-13 20:25] LABS: SARS Covid-2 Antigen Negative (Negative)
[2022-07-13 20:44] LABS: Troponin 5 2HR Delta -0.09 ABS# (0-10)
[2022-07-13] MEDS: acetaminophen 500 mg Tablet 1000 MG PO (20:48)
[2022-07-13 20:49] VITALS: BP 152/112; PULSE 87; RESP 18; O2SAT 97
== END 2022-07-13 20:49 | disposition home or self-care (01) ==
PROVIDERS: Physician Assistant; Emergency Provider Emergency Medicine; PCP Family Medicine
DX: R07.9 Chest pain, unspecified (principal); I10 Essential (primary) hypertension
CPT/HCPCS: 36415; 71045; 80053; 84484; 85025; 87426; 93005; 96374; 99285; J3490; J7030

== ENCOUNTER 2022-07-14 10:05 | Emergency (ER) | payer MEDICAID, SELFPAY ==
[2022-04-08 10:26] VITALS: BP 142/106; BMI 44.5
[2022-07-14 10:11] VITALS: BP 164/117; PULSE 92; RESP 18; TEMP 36.3; O2SAT 97; BMI 44.4
--- NOTE | 2022-07-14 11:00 | ED_ITS ---
HPI - General Adult General: Chief complaint: Chest Pain Stated complaint: high BP Time Seen by Provider: 07/14/22 10:10 Source: patient Mode of arrival: ambulatory Limitations: no limitations History of Present Illness: Patient is a 36-year-old male who presents to ED today with a complaint of left-sided chest pain, dry mouth, headache, and elevated blood pressure. Patient tells me he was seen here yesterday for same complaint and not any better today thus prompting his return. After extensive history taking patient tells me that he has had left-sided chest pain for at least 4 months although after looking through documentation it looks like he has had this for much longer. He states sometimes pain radiates into his left arm. Patient denies any exacerbating or alleviating factors to his discomfort. He states he has a known history of hypertension and does not take his blood pressure at home as he not afford a pressure cuff. He states he is supposed to be taking propranolol and amlodipine however has not been because they do not work . PCP is Dr. Rodgers. He does not complain of any shortness of breath or difficulty breathing. He does not have any lower extremity swelling, redness, calf pain. Onset (ago): unknown (chronicy varies by complaint) Pain Consistency: intermittent Relieving factors: none Exacerbating factors: none Associated symptoms: Reports chest pain and headache(s); Deny confusion, dyspnea, malaise, nausea, rash, palpitations, syncope or vomiting Review of Systems Const: Denies: fever(s), chills, body aches, fatigue or malaise Eyes: Denies: change in vision, blurry vision, photophobia, floaters or seeing flashes ENMT: Reports: other (reports dry mouth); Denies: throat pain, odynophagia, ear or mastoid pain, nasal discharge, nasal congestion, post nasal drip or sinus pain Card: Reports: chest pain; Denies: palpitations, irregular heart rhythm, edema, swelling of feet/ankles, lightheadedness, syncope, pre-syncope, dyspnea on exertion, orthopnea, leg pain with exertion or acrocyanosis Resp: Denies: dyspnea, productive cough, non-productive cough, wheezing, pain on inspiration, hemoptysis or chest congestion GI: Denies: abdominal pain, nausea, vomiting or diarrhea : Denies: flank pain, dysuria or hematuria Musc: Denies: neck pain, back pain, extremity pain or joint pain Skin/Breast: Denies: rash Neuro: Reports: headache(s); Denies: numbness in extremities, weakness in extremities, sensory changes, dizziness or confusion PFSH ED PFSH: Medical History Chronic post-traumatic stress disorder Depression, major, recurrent, severe with psychosis History of attention deficit hyperactivity disorder (ADHD) History of substance use disorder last use of alcohol reported as Jul 2021 last use of opiates, methamphetamines reported 2018 Idiopathic mild intellectual disability Surgical History No pertinent past surgical history Social History Smoking and tobacco status: never smoked Alcohol intake: never Physical Exam Const: COMMON NORMALS: no acute distress, patient oriented x3, no limitations and alert GENERAL APPEARANCE: cooperative NUTRITIONAL APPEARANCE: obese morbidly obese ORIENTATION/CONSCIOUSNESS: Yes awake, Yes oriented to person, Yes oriented to place and Yes oriented to time HENMT: COMMON NORMALS: normocephalic and atraumatic HEAD & SCALP: normal to inspection, normocephalic and atraumatic Chest: COMMONS NORMALS: normal inspection of the chest and normal palpation of entire chest wall Resp: COMMON NORMALS: normal respiratory effort and clear to auscultation bilaterally AUSCULTATION: clear to auscultation bilaterally Cardio: COMMON NORMALS: regular rate and regular rhythm RATE: regular rate RHYTHM: regular rhythm GI: COMMON NORMALS: Normal to inspection, nondistended, normoactive bowel sounds present, Soft to palpation and non-tender PALPATION: Yes Soft to palpation Extremity: COMMON NORMALS: normal to inspection, capillary refill normal, no clubbing, cyanosis or edema, no calf tenderness and no pedal edema GENERAL: Yes normal exam except as noted Neuro: ANALI COMA SCALE: document GCS findings [place] coma scale eye opening: Spontaneous [place] coma scale verbal response: Orientated [place] coma scale motor response: Obey commands [place] coma scale total score: 15 COMMON NORMALS: patient oriented x3, moves all extremities, no focal motor deficits, no sensory deficits noted and gait normal SENSORIUM/ORIENTATION: Yes alert, Yes oriented to person, Yes oriented to place and Yes oriented to time Skin: COMMON NORMALS: no rashes or lesions noted GENERAL SKIN EXAM: no rashes or lesions noted Course 2 Vital Signs: Vital signs: Vital Signs Temperature 97.4 F L 07/14/22 10:11 Pulse Rate 88 07/14/22 11:23 Respiratory Rate 16 07/14/22 11:23 Blood Pressure 151/105 07/14/22 11:23 Pulse Oximetry 97 07/14/22 11:23 Oxygen Delivery Me thod 07/14/22 11:22 MDM - General Adult Medical Decision Making Looking at previous documentation and previous vitals it looks like a normal blood pressure for patient dating back to 10/2021 is roughly 150s/100s. Patient is noncompliant as he never takes his blood pressure at home and does not take his blood pressure medications reporting that they do not work. Patient was seen yesterday in the ED and had labs including troponin as well as a CXR and EKG performed all of which were unremarkable. Repeat EKG today shows no ischemic changes. I do not see any necessity to repeat anything else today. Patient's complaints are chronic. Currently there is a degree of noncompliance. I told patient I would like him to start taking his blood pressure medications as they are prescribed every day and try to possibly borrow a blood pressure cuff from a friend or family member to keep a log so he can follow-up with Dr. Rodgers and have these medications adjusted if needed. Discharge Plan Discharge Patient Disposition: Home Clinical Impression: Uncontrolled hypertension, Chronic chest pain Condition: Stable Prescriptions: No Action duloxetine [Cymbalta] 30 mg capsule,delayed release(DR/EC) 30 mg PO .morning Qty: 30 2RF Rx Instructions: Take one capsule every morning diclofenac sodium 50 mg tablet,delayed release (DR/EC) 50 mg PO Q12H PRN (Reason: pain) Qty: 20 0RF Medrol (Bhupendra) 4 mg tablets,dose pack See Rx Instructions .ROUTE .COMPLEX Qty: 21 0RF Rx Instructions: orally per package directions amlodipine 5 mg tablet 5 mg PO DAILY Qty: 30 3RF propranolol 20 mg tablet 20 mg PO BID Qty: 60 2RF Rx Instructions: Take one tablet twice per day ondansetron 4 mg tablet,disintegrating 4 mg PO Q6H PRN (Reason: nausea and vomiting) Qty: 14 0RF Discharge Orders: Discharge ED (Routine); Ordered 07/14/22 Ordered By: Ashlyn Reyes Referrals: Drake Hernandez DO [Primary Care Provider] - Patient Instructions: Hypertension (ED) Activity Restrictions/Additional Instructions: As we discussed you need to take your high blood pressure every single day as prescribed. You need to keep a blood pressure log over the next 2 weeks so these medications can be titrated based on effect. Follow up with primary care in re g[place] to your chronic chest pains. Coding Level of Care Code ED Research And Evaluation Analyst for Aby Dixon
[2022-07-14] MEDS: amlodipine 5 mg Tablet PO (11:07)
[2022-07-14] MEDS: propranolol 20 mg Tablet PO (11:07)
[2022-07-14 11:22] VITALS: BP 151/105; PULSE 88; RESP 16; O2SAT 97
[2022-07-14 11:23] VITALS: BP 151/105; PULSE 88; RESP 16; O2SAT 97
== END 2022-07-14 11:24 | disposition home or self-care (01) ==
PROVIDERS: Emergency Provider Physician Assistant; PCP Family Medicine
DX: G89.29 Other chronic pain (principal); R07.9 Chest pain, unspecified; I10 Essential (primary) hypertension
CPT/HCPCS: 99283

== ENCOUNTER 2022-08-06 15:35 | Emergency (ER) | payer MEDICAID, SELFPAY ==
[2022-04-08 10:26] VITALS: BP 142/106; BMI 44.5
[2022-08-06 15:42] VITALS: BP 154/110; PULSE 102; RESP 16; TEMP 36.9; O2SAT 95; BMI 44.4
--- NOTE | 2022-08-06 15:59 | ECG_ITS ---
[facility] Test Date: 2022-08-06 Pat Name: Wicho Lugo Department: Room: Gender: Male Mass Spec: : 1985 Requested By: Gil Donohue Order Number: [id number] MD: Bharat Payton M.D. Measurements Intervals [place] Rate: 100 P: 42 [place]: 158 QRS: 22 QRSD: 110 T: 37 QT: 356 QTc: 460 Interpretive Statements SINUS TACHYCARDIA Compared to ECG 07/13/2022 15:45:19 Sinus rhythm no longer present Electronically Signed On 08-07-2022 14:29:24 CDT by Bharat Payton M.D. [id number]
[2022-08-06 17:27] VITALS: BP 154/110; PULSE 99; RESP 16; TEMP 36.9; O2SAT 95
--- NOTE | 2022-08-06 18:21 | W.ED.GENADLT ---
HPI - General Adult General: Chief complaint: General Medical Stated complaint: high BP Time Seen by Provider: 08/06/22 17:34 Source: patient Mode of arrival: ambulatory Limitations: no limitations History of Present Illness: 36-year-old male states he is over at [facility] [place] for an appointment and he was hypertensive he states he had recently been started on clonidine but has had some hypertension and is chronic in nature states he had some mild chest pain but states he had chest pains for months denies any worsening denies any shortness of breath denies any diaphoresis. Associated symptoms: Reports chest pain; Deny dyspnea, headache(s), nausea, rash or vomiting Review of Systems Const: Denies: fever(s), chills, body aches or change in appetite Eyes: Denies: blurry vision or eye discomfort ENMT: Denies: throat pain or dental pain Card: Reports: chest pain Resp: Denies: dyspnea GI: Denies: abdominal pain, nausea, vomiting or diarrhea : Denies: dysuria Musc: Denies: neck pain or back pain Skin/Breast: Denies: rash Neuro: Denies: headache(s) Psych: Denies: depression Kb/Lymph: Denies: easy bruising All/Imm: Denies: urticaria PFSH ED PFSH: Medical History Chronic post-traumatic stress disorder Depression, major, recurrent, severe with psychosis History of attention deficit hyperactivity disorder (ADHD) History of substance use disorder last use of alcohol reported as Jul 2021 last use of opiates, methamphetamines reported 2018 Idiopathic mild intellectual disability Surgical History No pertinent past surgical history Social History Smoking and tobacco status: never smoked Alcohol intake: never Physical Exam Const: COMMON NORMALS: no acute distress, patient oriented x3 and healthy appearing HENMT: COMMON NORMALS: normocephalic and atraumatic HEAD & SCALP: normocephalic and atraumatic Eye: COMMON NORMALS: Equal, round and reactive pupils present and EOMs intact bilaterally PUPIL: Yes Equal, round and reactive pupils present Neck/C-Spine: COMMON NORMALS: full ROM and supple Chest: COMMONS NORMALS: normal inspection of the chest and normal palpation of entire chest wall Resp: COMMON NORMALS: normal respiratory effort, No retractions, No use of accessory muscles and clear to auscultation bilaterally AUSCULTATION: clear to auscultation bilaterally Cardio: COMMON NORMALS: regular rate, regular rhythm and No murmurs present (Cardio) RATE: regular rate RHYTHM: regular rhythm GI: COMMON NORMALS: Normal to inspection, nondistended, normoactive bowel sounds present, Soft to palpation, non-tender and no masses PALPATION: Yes Soft to palpation Extremity: COMMON NORMALS: normal to inspection and full ROM Neuro: COMMON NORMALS: patient oriented x3, moves all extremities and no focal motor deficits Psych: COMMON NORMALS: mental status grossly normal, Normal thought process present and cooperative THOUGHT PROCESS: Normal thought process present Skin: COMMON NORMALS: no rashes or lesions noted and no wounds GENERAL SKIN EXAM: no rashes or lesions noted Course Vital Signs: Vital signs: Vital Signs Temperature 98.4 F 08/06/22 17:27 Pulse Rate 99 08/06/22 17:27 Respiratory Rate 16 08/06/22 17:27 Blood Pressure 154/110 08/06/22 17:27 Pulse Oximetry 95 08/06/22 17:27 Oxygen Delivery Me thod 08/06/22 15:42 MDM - General Adult Medical Decision Making Patient presents here with hypertension its been chronic in nature we will start him on metoprolol he is well-appearing here he is chronic chest pain as well for months his EKG here is normal no signs of ACS. He is follow-up his PCP and return if worsening he understands agrees to plan. Discharge Plan Discharge Patient Disposition: Home Clinical Impression: Hypertension Condition: Stable Prescriptions: New metoprolol succinate 50 mg tablet extended release 24 hr 50 mg PO DAILY Qty: 60 0RF No Action duloxetine [Cymbalta] 30 mg capsule,delayed release(DR/EC) 30 mg PO .morning Qty: 30 2RF Rx Instructions: Take one capsule every morning clonidine HCl 0.2 mg tablet 0.2 mg PO BID PRN (Reason: hypertensive emergency) Qty: 60 3RF Rx Instructions: Take one tablet twice per day as needed for high blood pressure Discharge Orders: Discharge ED (Routine); Ordered 08/06/22 Ordered By: Bethany Carl Referrals: Drake Hernandez DO [Primary Care Provider] - Discharge Diet: Advance as tolerated Discharge Activity: Resume usual activity Patient Instructions: Hypertension (ED) Coding Level of Care Code ED Diamond Driller Helper for Aby Dixon
[2022-08-06] MEDS: metoprolol tartrate 50 mg Tablet PO (18:28)
[2022-08-06 18:34] VITALS: BP 148/98; PULSE 95
== END 2022-08-06 18:36 | disposition home or self-care (01) ==
PROVIDERS: Emergency Provider Emergency Medicine; PCP Family Medicine
DX: I10 Essential (primary) hypertension (principal); R07.9 Chest pain, unspecified; Z79.899 Other long term (current) drug therapy
CPT/HCPCS: 93005; 99283

== ENCOUNTER 2022-09-24 18:38 | Emergency (ER) | payer MEDICAID, SELFPAY ==
[2022-04-08 10:26] VITALS: BP 142/106; BMI 44.5
[2022-09-24 18:44] VITALS: BP 141/93; PULSE 104; RESP 17; TEMP 36.7; O2SAT 97; BMI 43.9
--- NOTE | 2022-09-24 21:04 | XRR_ITS ---
PROCEDURE INFORMATION: Exam: XR Chest Exam date and time: 09/24/2022 9:46 PM Age: 36 years old Clinical indication: Shortness of breath; Additional info: Cough, SOB TECHNIQUE: Imaging protocol: Radiologic exam of the chest. Views: 1 view. COMPARISON: CR XR chest 1V portable [id number] 07/13/2022 3:56 PM FINDINGS: Lungs: The lungs are clear. Pleural spaces: Unremarkable. No pleural effusion. No pneumothorax. Heart/Mediastinum: Unremarkable. No cardiomegaly. Bones/joints: Unremarkable. XR/XR chest 2V* [id number] IMPRESSION: No acute cardiopulmonary abnormality.
[2022-09-24 22:00] VITALS: BP 186/123; PULSE 92; RESP 16; O2SAT 98
--- NOTE | 2022-09-24 22:03 | ED_ITS ---
HPI - General Adult General: Chief complaint: General Medical Stated complaint: V\Cough\Conjestions\D\SOB Time Seen by Provider: 09/24/22 19:05 History of Present Illness: Patient reports that this morning he started feeling generally terrible with a dry cough, nausea with vomiting x3 today, loose stools with approximately 4 loose stools today. He denies any blood in his vomit or stools. He denies measurable fever. He reports that he lives in a sober living house and has to make sure that he is not contagious for all of his other roommates. He does report some recent sick contacts but they were only secondary to and then better. He also reports that he has elevated blood pressure they have just recently increase his Coreg to 12.5 mg p.o. twice daily however he still needs to pharmacy picking tech that dose from the pharmacy. He has not taken any of his Coreg today, because he is felt so terrible. He denies any chest pain. He reports that he is really not short of breath but he feels like he is having a difficult time breathing out of his nose. Associated symptoms: Reports nausea and vomiting; Deny chest pain or palpitations Review of Systems Const: Denies: fever(s), chills or body aches ENMT: Reports: nasal discharge, nasal congestion and post nasal drip Card: Denies: chest pain or palpitations Resp: Reports: non-productive cough and chest congestion GI: Reports: nausea, vomiting and diarrhea; Denies: abdominal pain or hematemesis : Denies: flank pain, difficulty urinating or dysuria PFS ED PFSH: Medical History Chronic post-traumatic stress disorder Clinical diagnosis of COVID-19 Depression, major, recurrent, severe with psychosis History of attention deficit hyperactivity disorder (ADHD) History of substance use disorder last use of alcohol reported as Jul 2021 last use of opiates, methamphetamines reported 2018 HTN (hypertension) Idiopathic mild intellectual disability Surgical History No pertinent past surgical history S/P knee surgery Social History Smoking and tobacco status: current every day smoker (vapes/previously cig smoker) e-cigarettes Alcohol intake: never Physical Exam Const: COMMON NORMALS: no acute distress, patient oriented x3 and alert HENMT: COMMON NORMALS: external ears normal and TM's normal bilaterally EXTERNAL EAR: Yes external ears normal TYMPANIC MEMBRANE: TM's normal bilaterally THROAT: postnasal drainage Neuro: COMMON NORMALS: patient oriented x3 SENSORIUM/ORIENTATION: Yes alert Course Vital Signs: Vital signs: Vital Signs Temperature 98.1 F 09/24/22 18:44 Pulse Rate 92 09/24/22 22:00 Respiratory Rate 16 09/24/22 22:00 Blood Pressure 183/132 09/24/22 23:33 Pulse Oximetry 98 09/24/22 22:00 Oxygen Delivery Me thod 09/24/22 22:00 MDM - General Adult Medical Decision Making Patient is in today for illness starting today. He reports a dry cough with nasal congestion and drainage. He reports nausea and vomiting with 4 episodes of loose stools today. He denies measurable fever. Chest x-ray 2 view wet read no acute cardiopulmonary changes appreciated. Patient's blood pressure is elevated and here today he has not taken his Coreg all day. Will dose him with 12.5 mg Coreg one-time. Provide patient with 4 mg of Zofran to help with some nausea. Patient's blood pressure did not improve after the Coreg was administered. Administered 0.2 of clonidine which is what the patient uses as needed for very high blood pressure. Patient's blood pressure remained elevated. Patient is completely asymptomatic with no complaints of chest pain, shortness of breath. Patient wishes to be sent home and not have further address of his blood pressure. He reports that this is a chronic elevated blood pressure and he is following with his primary care provider. He understands the risks of uncontrolled hypertension as well as the signs and symptoms of heart attack and/or stroke. He advised that he will return to the ER as needed. Note is given for work. Advised patient of conservative treatment at home for allergic rhinitis and control of postnasal drainage. Encouraged him to stay well-hydrated and well rested. Follow-up with primary care provider as needed. Return to the ER for new or worsening symptoms. Lab Data Radiology Impressions Chest X-Ray 09/24/22 21:04 IMPRESSION: No acute cardiopulmonary abnormality. Discharge Plan Discharge Clinical Impression: Allergic rhinitis, Vomiting, Cough, HTN (hypertension) Condition: Stable Prescriptions: No Action carvedilol 12.5 mg tablet 12.5 mg PO BID Qty: 60 3RF Rx Instructions: must administer with a meal/food clonidine HCl 0.2 mg tablet 0.2 mg PO BID PRN (Reason: hypertensive emergency) Qty: 60 3RF Rx Instructions: Take one tablet twice per day as needed for high blood pressure Referrals: Drake Hernandez DO [Primary Care Provider] - Discharge Diet: Usual diet Discharge Activity: Resume usual activity Patient Instructions: Allergic Rhinitis (DC), Postnasal Drip (DC) Activity Restrictions/Additional Instructions: Your blood pressure is not well controlled. Be sure to start the Coreg medication tomorrow at the 12.5 mg dose twice a day. Continue close follow-up with your primary care provider for elevated blood pressure. I recommend conservative treatments at home [id number] including Zyrtec and Flonase to help control postnasal drainage. Make sure that you are getting plenty of water and plenty of rest. Follow-up with your primary care provider as needed. Return to the emergency department for any new or worsening symptoms, including but not limited to, chest pain, shortness of breath, headache, blurred vision or vision changes. Stand Alone Forms: Work/School Release Coding Level of Care Code ED Thermal Cutting Tracer Machine Operator for Aby Fwkaren Exam Expanded Problem Focused
[2022-09-24] MEDS: carvedilol 12.5 mg Tablet PO (22:07)
[2022-09-24] MEDS: ondansetron 4 MG Tablet PO (22:07)
[2022-09-24 23:33] VITALS: BP 183/132
[2022-09-24] MEDS: cloNIDine 0.1 mg Tablet 0.2 MG PO (23:33)
[2022-09-25 00:02] VITALS: BP 183/132; PULSE 88; O2SAT 95
== END 2022-09-25 00:06 | disposition home or self-care (01) ==
PROVIDERS: Emergency Provider Nurse Practitioner Family; PCP Family Medicine
DX: J30.9 Allergic rhinitis, unspecified (principal); I10 Essential (primary) hypertension; R11.11 Vomiting without nausea; R05.9 Cough, unspecified; F17.290 Nicotine dependence, other tobacco product, uncomplicated
CPT/HCPCS: 71046; 99283; Q0162

== ENCOUNTER 2022-10-17 14:29 | Emergency (ER) | payer MEDICAID, SELFPAY ==
[2022-04-08 10:26] VITALS: BP 142/106; BMI 44.5
[2022-10-17 15:01] VITALS: BP 168/109; PULSE 107; RESP 18; TEMP 37.3; O2SAT 99; BMI 43.9
--- NOTE | 2022-10-17 15:28 | XRR_ITS ---
PROCEDURE INFORMATION: Exam: XR Chest Exam date and time: 10/17/2022 4:39 PM Age: 37 years old Clinical indication: Cough and fever; Additional info: Fever and cough TECHNIQUE: Imaging protocol: Radiologic exam of the chest. Views: 1 view. COMPARISON: CR (CHEST, ) 09/24/2022 9:46 PM FINDINGS: Lungs: Unremarkable. No consolidation. Pleural spaces: Unremarkable. No pleural effusion. No pneumothorax. Heart/Mediastinum: Unremarkable. No cardiomegaly. Bones/joints: Unremarkable. XR/XR chest 1V portable [id number] IMPRESSION: No acute findings.
[2022-10-17 16:03] LABS: Rapid Strep A Test Negative (Negative)
--- NOTE | 2022-10-17 16:23 | W.ED.URI ---
HPI - URI/Sore Throat General: Chief Complaint: Fever Stated Complaint: fever, Headache, chest pain with cough Time Seen by Provider: 10/17/22 15:28 History of Present Illness: Patient is a 37-year-old male comes to the ED with upper respiratory symptoms. Patient's symptoms started yesterday. He has cough, nasal drainage and congestion, fevers, chills, body aches and sore throat. Cough is dry nonproductive. Patient was around a friend who had similar symptoms earlier this week. Denies any shortness of breath, nausea or vomiting and is able to keep p.o. fluids down. Associated symptoms: Reports chills, fever(s) and nasal congestion; Deny abdominal pain, chest pain, diarrhea, headache(s), nausea or vomiting Review of Systems Const: Reports: fever(s), chills, body aches and malaise; Denies: fatigue Eyes: Denies: change in vision or eye discomfort ENMT: Reports: throat pain, nasal discharge and nasal congestion; Denies: odynophagia Card: Denies: chest pain, palpitations, edema, swelling of feet/ankles, dyspnea on exertion or orthopnea Resp: Reports: non-productive cough; Denies: dyspnea or productive cough GI: Denies: abdominal pain, nausea, vomiting, diarrhea, constipation or hematochezia : Denies: flank pain, difficulty urinating, dysuria or hematuria Musc: Denies: neck pain, back pain or extremity swelling Skin/Breast: Denies: rash or new lesions Neuro: Denies: headache(s), numbness in extremities or weakness in extremities PFSH ED PFSH: Medical History Chronic post-traumatic stress disorder Clinical diagnosis of COVID-19 Depression, major, recurrent, severe with psychosis History of attention deficit hyperactivity disorder (ADHD) History of substance use disorder last use of alcohol reported as Jul 2021 last use of opiates, methamphetamines reported 2018 HTN (hypertension) Idiopathic mild intellectual disability Surgical History No pertinent past surgical history S/P knee surgery Family History Other Diabetes Family history of premature coronary artery disease Psychiatric illness Social History Smoking and tobacco status: current every day smoker (vapes/previously cig smoker) e-cigarettes E-Cigarette Details: with nicotine E-cig/vape details: takes 2 weeks to go through a pod Quit status (tobacco): considering quitting Second hand smoke exposure: Yes Alcohol intake: former Former alcohol use details: or 2020 Adopted: No Caregiver/support person: No Lives independently: Yes Household members: other Details: Sober living house Housing: House Marital status: Legally Number of children: 2 Number of grandchildren: 0 Highest education level completed: Some College, No Degree service: No Current occupational status: employed Current occupation: [employer] 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) Pets and animals: Yes Pets & animals: cat(s) History of recent travel: No Leisure activites: music Sexually active: No Current gender identity: Male Stephany/Christian: Jainism Special stephany needs: No Agree to transfusion: Yes Financial difficulty paying for basics: Hard Physical Exam Const: COMMON NORMALS: no acute distress, patient oriented x3 and alert GENERAL APPEARANCE: cooperative and comfortable HENMT: COMMON NORMALS: normocephalic HEAD & SCALP: normocephalic MOUTH: Normal oral and palatal mucosa present THROAT: posterior oropharynx normal and uvula midline Neck/C-Spine: COMMON NORMALS: supple GENERAL: Yes normal visual inspection Resp: COMMON NORMALS: normal respiratory effort, No retractions, No use of accessory muscles and clear to auscultation bilaterally AUSCULTATION: clear to auscultation bilaterally Cardio: COMMON NORMALS: regular rate, regular rhythm, S1 normal heart sound present, S2 normal heart sound present, No gallops present (Cardio), No clicks present (Cardio), No murmurs present (Cardio) and Peripheral pulses 2+ throughout RATE: regular rate RHYTHM: regular rhythm HEART SOUNDS: S1 normal heart sound present and S2 normal heart sound present PERIPHERAL PULSES: Peripheral pulses 2+ throughout GI: COMMON NORMALS: Normal to inspection, nondistended, normoactive bowel sounds present, Soft to palpation, non-tender and no masses PALPATION: Yes Soft to palpation : COMMON NORMALS: Yes no CVA tenderness BLADDER/KIDNEY EXAM: Yes no CVA tenderness Back/Pelvis: COMMON NORMALS: no CVA tenderness Extremity: COMMON NORMALS: normal to inspection Neuro: COMMON NORMALS: patient oriented x3 SENSORIUM/ORIENTATION: Yes alert GAIT: Yes Normal gait present Skin: GENERAL SKIN EXAM: dry skin Course Vital Signs: Vital signs: Vital Signs Temperature 99.2 F 10/17/22 15:01 Pulse Rate 107 H 10/17/22 15:01 Respiratory Rate 18 10/17/22 15:01 Blood Pressure 168/109 10/17/22 15:01 Pulse Oximetry 99 10/17/22 15:01 Oxygen Delivery Me thod 10/17/22 15:01 MDM - URI/Sore Throat Medical Decision Making Patient is a 37-year-old male comes to the ED with upper respiratory symptoms. Patient's symptoms started yesterday. He has cough, nasal drainage and congestion, fevers, chills, body aches and sore throat. Vitals are stable. Patient appears nontoxic in no acute distress or pain. Exam is benign. Chest x-ray shows no acute findings. Influenza a positive. COVID and strep were negative. Patient was diagnosed with influenza A and upper respiratory viral infection and discharged home. He sent home with a prescription for Medrol Dosepak told to follow-up with his PCP within the next week for reevaluation. Return ED precautions given. Patient understood agree with plan Lab Data I reviewed the patient's lab results. Radiology Impressions Chest X-Ray 10/17/22 15:28 IMPRESSION: No acute findings. Laboratory Results Nasal Influ A H1 2008 PCR Detected (NOT DETECT) A 10/17/22 17:42 Coronavirus 229E (PCR) Not detected (NOT DETECT) 10/17/22 15:48 Influenza A (H1) PCR Not detected (NOT DETECT) 10/17/22 17:42 Influenza A (H3) PCR Not detected (NOT DETECT) 10/17/22 17:42 Influenza Type A (PCR) Detected (NOT DETECT) A 10/17/22 17:42 Influenza Type B (PCR) Not detected (NOT DETECT) 10/17/22 17:42 SARS-CoV-2 (PCR) Not detected (NOT DETECT) 10/17/22 15:48 Group A Strep Rapid Negative (Negative) 10/17/22 15:48 Discharge Plan Discharge Patient Disposition: Home Clinical Impression: Influenza A, Viral upper respiratory infection Condition: Stable Prescriptions: New Medrol (Bhupendra) 4 mg tablets,dose pack See Rx Instructions .ROUTE .COMPLEX Qty: 21 0RF Rx Instructions: orally per package directions No Action carvedilol 12.5 mg tablet 12.5 mg PO BID Qty: 60 3RF Rx Instructions: must administer with a meal/food fluticasone propionate 50 mcg/actuation spray,suspension 2 spray intranasal DAILY PRN (Reason: allergy symptoms) Qty: 16 0RF Rx Instructions: administer into each nostril Discharge Orders: Discharge ED (Routine); Ordered 10/17/22 Ordered By: Edy Velazquez Referrals: Drake Hernandez DO [Primary Care Provider] - Discharge Diet: Regular Discharge Activity: Increase activity as tolerated Patient Instructions: Upper Respiratory Infection - Adult Activity Restrictions/Additional Instructions: Follow-up with medical provider as directed in the next 5 to 7 days for reevaluation. Your COVID and influenza test are still pending. [facility] find out [facility] results. Take medications as prescribed. Drink plenty fluids and stay hydrated. Take [id number] Tylenol or Motrin for any fevers. Return to the ER or your medical provider if condition worsens. Please read and understand discharge instructions. Thank you for choosing [facility] for your healthcare needs today. Please realize this is an emergency room and that we are providing you with a medical screening exam and this may not be complete and all inclusive of all the testing and or work up that you may need to determine your ailment or severity of your illness. It is very important that you follow up as instructed or that you return to the Emergency Department should you have concerns or if your condition changes or worsens in any way. Stand Alone Forms: Work/School Release Coding Level of Care Code ED Silo Operator for Aby 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
[2022-10-17] MEDS: ketorolac 60 mg/2 mL INJ IM (16:29)
[2022-10-17 17:38] LABS: Adenovirus Not Detected (NOT DETECT); Chlamydia Pneumoniae Not Detected (NOT DETECT); Coronavirus 229E,HKU1,NL63,OC4 Not Detected (NOT DETECT); Human Metapneumovirus Not Detected (NOT DETECT); Human Rhinovirus/Enterovirus Not Detected (NOT DETECT); Influenza A Detected (NOT DETECT); Influenza A H1 Not Detected (NOT DETECT); Influenza A H1-2009 Detected (NOT DETECT); Influenza A H3 Not Detected (NOT DETECT); Influenza B Not Detected (NOT DETECT); Mycoplasma Pneumoniae Not Detected (NOT DETECT); Parainfluenza Virus Type 1 Not Detected (NOT DETECT); Parainfluenza Virus Type 2 Not Detected (NOT DETECT); Parainfluenza Virus Type 3 Not Detected (NOT DETECT); Parainfluenza Virus Type 4 Not Detected (NOT DETECT); Respiratory Syncytial Virus A Not Detected (NOT DETECT); Respiratory Syncytial Virus B Not Detected (NOT DETECT); SARS-COV-2 Not Detected (NOT DETECT)
[2022-10-17 17:42] LABS: Influenza A Detected (NOT DETECT); Influenza A H1 Not Detected (NOT DETECT); Influenza A H1-2009 Detected (NOT DETECT); Influenza A H3 Not Detected (NOT DETECT); Influenza B Not Detected (NOT DETECT); Results from Genmark
== END 2022-10-17 17:08 | disposition home or self-care (01) ==
PROVIDERS: Emergency Provider Physician Assistant; PCP Family Medicine
DX: J10.1 Influenza due to other identified influenza virus with other respiratory manifestations (principal); J06.9 Acute upper respiratory infection, unspecified; Z20.822 Contact with and (suspected) exposure to COVID-19; F17.290 Nicotine dependence, other tobacco product, uncomplicated; I10 Essential (primary) hypertension
CPT/HCPCS: 71045; 87081; 87631; 87635; 87880; 96372; 99284; J1885

== ENCOUNTER 2022-11-10 05:04 | Emergency (ER) | payer MEDICAID, SELFPAY ==
[2022-04-08 10:26] VITALS: BP 142/106; BMI 44.5
--- NOTE | 2022-11-10 05:09 | ECG_ITS ---
[facility] Test Date: 2022-11-10 Pat Name: Wicho Lugo Department: Room: Gender: Male Slubber Hand: : 1985 Requested By: Bethany Carl Order Number: [id number] Sil MD: Angelia Olea M.D. Measurements Intervals [place] Rate: 81 P: 58 DC: 171 QRS: 1 QRSD: 128 T: 24 QT: 397 QTc: 463 Interpretive Statements SINUS RHYTHM MODERATE INTRAVENTRICULAR CONDUCTION DELAY [110+ ms QRS DURATION] Compared to ECG 08/06/2022 15:59:18 Intraventricular conduction delay now present Sinus tachycardia no longer present Electronically Signed On 11-11-2022 0:00:37 MEMBERSHIP SALES MANAGER by Angelia Olea M.D. [id number]
--- NOTE | 2022-11-10 05:09 | XRR_ITS ---
PROCEDURE INFORMATION: Exam: XR Chest Exam date and time: 11/10/2022 5:15 AM Age: 37 years old Clinical indication: Right-sided; Patient HX: C/O RT sided chest pain; Additional info: Cp TECHNIQUE: Imaging protocol: Radiologic exam of the chest. Views: 1 view. COMPARISON: CR (CHEST, ) 10/17/2022 4:39 PM FINDINGS: Lungs: No consolidation. Pleural spaces: Unremarkable. No pleural effusion. No pneumothorax. Heart/Mediastinum: No cardiomegaly. Bones/joints: No acute fracture. XR/XR chest 1V portable [id number] IMPRESSION: No acute findings.
[2022-11-10 05:10] VITALS: BP 162/117; PULSE 90; RESP 22; TEMP 36.6; O2SAT 98; BMI 43.4
--- NOTE | 2022-11-10 05:10 | W.ED.CHESTPA ---
HPI - Chest Pain General: Chief Complaint: General Medical Stated Complaint: Stabbing Pain Upper Back Time Seen by Provider: 11/10/22 05:12 Source: patient Mode of arrival: ambulatory Limitations: no limitations History of Present Illness: He states [id number] male states that since roughly 2 to 3 hours he was been having right-sided chest pain. On the right lateral chest is sharp in nature states it is much worse with movement and with palpation he denies any shortness of breath denies any cough or fever. Associated symptoms: Deny abdominal pain, dyspnea, fever(s), nausea or vomiting Review of Systems Const: Denies: fever(s), chills, body aches or change in appetite Eyes: Denies: blurry vision or eye discomfort ENMT: Denies: throat pain or dental pain Card: Reports: chest pain Resp: Denies: dyspnea GI: Denies: abdominal pain, nausea, vomiting or diarrhea : Denies: dysuria Musc: Denies: neck pain or back pain Skin/Breast: Denies: rash Neuro: Denies: headache(s) Psych: Denies: depression Kb/Lymph: Denies: easy bruising All/Imm: Denies: urticaria PFSH ED PFSH: Medical History Chronic post-traumatic stress disorder Clinical diagnosis of COVID-19 Depression, major, recurrent, severe with psychosis History of attention deficit hyperactivity disorder (ADHD) History of substance use disorder last use of alcohol reported as Jul 2021 last use of opiates, methamphetamines reported 2017 HTN (hypertension) Idiopathic mild intellectual disability Surgical History No pertinent past surgical history S/P knee surgery Family History Other Diabetes Family history of premature coronary artery disease Psychiatric illness Social History Smoking and tobacco status: current every day smoker (vapes/previously cig smoker) e-cigarettes E-Cigarette Details: with nicotine E-cig/vape details: takes 2 weeks to go through a pod Quit status (tobacco): considering quitting Second hand smoke exposure: Yes Alcohol intake: former Former alcohol use details: or 2020 Adopted: No Caregiver/support person: No Lives independently: Yes Household members: other Details: Sober living house Housing: House Marital status: Legally Number of children: 2 Number of grandchildren: 0 Highest education level completed: Some College, No Degree service: No Current occupational status: employed Current occupation: [employer] 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) Pets and animals: Yes Pets & animals: cat(s) History of recent travel: No Leisure activites: music Sexually active: No Current gender identity: Male Stephany/Scientology: Zoroastrianism Special stephany needs: No Agree to transfusion: Yes Financial difficulty paying for basics: Hard Physical Exam Const: COMMON NORMALS: no acute distress, patient oriented x3 and healthy appearing HENMT: COMMON NORMALS: normocephalic and atraumatic HEAD & SCALP: normocephalic and atraumatic Eye: COMMON NORMALS: Equal, round and reactive pupils present and EOMs intact bilaterally PUPIL: Yes Equal, round and reactive pupils present Neck/C-Spine: COMMON NORMALS: full ROM and supple Chest: COMMONS NORMALS: normal inspection of the chest OTHER: right sded chest wall tenderness reproduces his pain Resp: COMMON NORMALS: normal respiratory effort, No retractions, No use of accessory muscles and clear to auscultation bilaterally AUSCULTATION: clear to auscultation bilaterally Cardio: COMMON NORMALS: regular rate, regular rhythm and No murmurs present (Cardio) RATE: regular rate RHYTHM: regular rhythm GI: COMMON NORMALS: Normal to inspection, nondistended, normoactive bowel sounds present, Soft to palpation, non-tender and no masses PALPATION: Yes Soft to palpation Extremity: COMMON NORMALS: normal to inspection and full ROM Neuro: COMMON NORMALS: patient oriented x3, moves all extremities and no focal motor deficits Psych: COMMON NORMALS: mental status grossly normal, Normal thought process present and cooperative THOUGHT PROCESS: Normal thought process present Skin: COMMON NORMALS: no rashes or lesions noted and no wounds GENERAL SKIN EXAM: no rashes or lesions noted Course Vital Signs: Vital signs: Vital Signs Temperature 97.8 F 11/10/22 05:10 Pulse Rate 90 11/10/22 05:10 Respiratory Rate 22 H 11/10/22 05:10 Blood Pressure 162/117 11/10/22 05:10 Pulse Oximetry 98 12/13/22 05:10 Oxygen Delivery Me thod 11/10/22 05:10 MDM - Chest Pain Medical Decision Making Patient presents for chest pain that is atypical in nature is likely muscular as he is point tender on his right side his troponin EKG and x-ray are all normal he is stable for discharge he is to follow-up with his PCP and return if worsening he understands agrees to plan. Lab Data 11/10/22 05:15 11/10/22 05:15 Radiology Impressions Chest X-Ray 11/10/22 05:09 IMPRESSION: No acute findings. Laboratory Results WBC 7.0 10^3/uL (4.0-10.0) 11/10/22 05:15 RBC 4.75 10^6/uL (4.1-5.3) 11/10/22 05:15 Hgb 13.8 g/dL (11.7-16.6) 11/10/22 05:15 Hct 40.9 % (42.0-52.0) L 11/10/22 05:15 MCV 86.1 fl (80-94) 11/10/22 05:15 MCH 29.1 pg (28.0-34.0) 11/10/22 05:15 MCHC 33.7 g/dL (30.0-36.0) 11/10/22 05:15 RDW 12.6 % (12.1-15.1) 11/10/22 05:15 Plt Count 205 10^3/cmm (130-400) 11/10/22 05:15 MPV 9.0 fL (7.4-10.4) 11/10/22 05:15 Neut % (Auto) 48.0 % 11/10/22 05:15 Lymph % (Auto) 40.9 % 11/10/22 05:15 [place] % (Auto) 6.9 % 11/10/22 05:15 Eos % (Auto) 3.3 % 11/10/22 05:15 Baso % (Auto) 0.6 % 11/10/22 05:15 Neut # (Auto) 3.37 10^3/uL (1.8-7.7) 11/10/22 05:15 Lymph # (Auto) 2.9 10^3/uL (0.8-4.8) 11/10/22 05:15 [place] # (Auto) 0.5 10^3/uL (0.2-0.9) 11/10/22 05:15 Eos # (Auto) 0.2 10^3/uL (0.0-0.8) 11/10/22 05:15 Baso # (Auto) 0.0 10^3/uL (0.0-0.1) 11/10/22 05:15 Nucleated RBC % (auto) 0 % 11/10/22 05:15 Nucleated RBCs # 0.0 /100WBC 11/10/22 05:15 Sodium 142 mmol/L (136-145) 11/10/22 05:15 Potassium 3.9 mmol/L (3.5-5.1) 11/10/22 05:15 Chloride 108 mmol/L (98-107) H 11/10/22 05:15 Carbon Dioxide 22 mmol/L (22-29) 11/10/22 05:15 Anion Gap 15.9 (5-19) 11/10/22 05:15 BUN 12 mg/dL (6-20) 11/10/22 05:15 Creatinine 0.6 mg/dL (0.7-1.2) L 11/10/22 05:15 GFR Calculation 150.8 mL/min (90-130) H 11/10/22 05:15 Glucose 117 mg/dL (65-115) H 11/10/22 05:15 Calculated Osmolality 295 mOsm/kg (285-295) 11/10/22 05:15 Calcium 8.8 mg/dL (8.5-10.5) 11/10/22 05:15 Total Bilirubin 0.5 mg/dL (0.15-1.2) 11/10/22 05:15 AST 25 U/L (0-40) 11/10/22 05:15 ALT 45 U/L (0-41) H 11/10/22 05:15 Alkaline Phosphatase 60 U/L (40-130) 11/10/22 05:15 Troponin T Baseline 9 ng/L (0-15) 11/10/22 05:15 Total Protein 7.2 g/dL (6.6-8.7) 11/10/22 05:15 Albumin 4.1 g/dL (3.5-5.2) 11/10/22 05:15 Globulin 3.1 g/dL (1.3-4.6) 11/10/22 05:15 Urine Color Yellow (Yellow) 11/10/22 05:24 Urine Appearance Clear (CLEAR) 11/10/22 05:24 Urine pH 5 (5-7) 11/10/22 05:24 Ur Specific [place] 1.030 (1.005-1.030) 11/10/22 05:24 Urine Protein Neg (Negative) 11/10/22 05:24 Urine Glucose (UA) Norm (Normal) 11/10/22 05:24 Urine Ketones Negative (Negative) 11/10/22 05:24 Urine Blood Neg (Negative) 11/10/22 05:24 Urine Nitrate Negative (Negative) 11/10/22 05:24 Urine Bilirubin Neg (Negative) 11/10/22 05:24 Urine Urobilinogen Norm mg/dL (Negative) 11/10/22 05:24 Ur Leukocyte Esterase Negative (Negative) 11/10/22 05:24 EKG Data EKG 1: I personally reviewed and interpreted this EKG as follows: EKG interpretation date: 11/10/22 EKG interpretation time: 05:20 Interpretation: nsr hr [address] or t wave abnormalities qrs 128 qtc 435 Discharge Plan Discharge Patient Disposition: Home Clinical Impression: Chest pain Condition: Stable Prescriptions: New Naprosyn 500 mg tablet 500 mg PO BID PRN (Reason: pain) Qty: 20 0RF No Action carvedilol 12.5 mg tablet 12.5 mg PO BID Qty: 60 3RF Rx Instructions: must administer with a meal/food fluticasone propionate 50 mcg/actuation spray,suspension 2 spray intranasal DAILY PRN (Reason: allergy symptoms) Qty: 16 0RF Rx Instructions: administer into each nostril Medrol (Bhupendra) 4 mg tablets,dose pack See Rx Instructions .ROUTE .COMPLEX Qty: 21 0RF Rx Instructions: orally per package directions Discharge Orders: Discharge ED (Routine); Ordered 11/10/22 Ordered By: Bethany Carl Referrals: Drake Hernandez DO [Primary Care Provider] - 1-3 days Discharge Diet: Advance as tolerated Discharge Activity: Use walker/crutches as instructed Patient Instructions: Chest Wall Pain (ED) Stand Alone Forms: Work/School Release Coding Level of Care Code ED Assistant Curator for Chg 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
[2022-11-10] MEDS: ketorolac 30 mg/mL INJ IM (05:25)
[2022-11-10 05:29] LABS: Basophils % 0.6 %; Eosinophils # 0.2 10^3/uL (0.0-0.8); Eosinophils % 3.3 %; Hematocrit 40.9 % (42.0-52.0); Hemoglobin 13.8 g/dL (11.7-16.6); Lymphocytes # 2.9 10^3/uL (0.8-4.8); Lymphocytes % 40.9 %; Mean Corpuscular HGB Conc 33.7 g/dL (30.0-36.0); Mean Corpuscular Hemoglobin 29.1 pg (28.0-34.0); Mean Corpuscular Volume 86.1 fl (80-94); Monocytes # 0.5 10^3/uL (0.2-0.9); Monocytes % 6.9 %; Neutrophils # 3.37 10^3/uL (1.8-7.7); Nucleated Red Blood Cells % 0 %; Platelet Count 205 10^3/cmm (130-400); Red Blood Count 4.75 10^6/uL (4.1-5.3); Red Cell Distribution Width 12.6 % (12.1-15.1)
[2022-11-10 05:30] LABS: Add Urine Microscopic? NO; Charge for UA Resulting for Rev
[2022-11-10 05:33] LABS: Urine Appearance Clear (CLEAR); Urine Color Yellow (Yellow); pH Urine 5 (5-7)
[2022-11-10 05:34] LABS: Bilirubin Urine Neg (Negative); Blood Urine Neg (Negative); Glucose Urine UA Norm (Normal); Ketones Urine Negative (Negative); Leukocyte Esterase Urine Negative (Negative); Nitrate Urine Negative (Negative); Protein Urine Neg (Negative); Urobilinogen Urine Norm (Negative)
[2022-11-10 05:41] LABS: Alanine Aminotransferase 45 U/L (0-41); Albumin Level 4.1 g/dL (3.5-5.2); Alkaline Phosphatase 60 U/L (40-130); Anion Gap 15.9 (5-19); Aspartate Amino Transferase 25 U/L (0-40); Blood Urea Nitrogen 12 mg/dL (6-20); Calcium 8.8 mg/dL (8.5-10.5); Carbon Dioxide 22 mmol/L (22-29); Chloride 108 mmol/L (98-107); Globulin 3.1 g/dL (1.3-4.6); Glomerular Filtration Rate 150.8 mL/min (90-130); Glucose 117 mg/dL (65-115); Osmolality Calculated 295 mOsm/kg (285-295); Potassium 3.9 mmol/L (3.5-5.1); Sodium 142 mmol/L (136-145); Total Bilirubin 0.5 mg/dL (0.15-1.2); Total Protein 7.2 g/dL (6.6-8.7)
[2022-11-10 05:43] LABS: Troponin(5th) Baseline 9 ng/L (0-15)
== END 2022-11-10 06:07 | disposition home or self-care (01) ==
PROVIDERS: Emergency Provider Emergency Medicine; PCP Family Medicine
DX: R07.9 Chest pain, unspecified (principal); I10 Essential (primary) hypertension; F17.290 Nicotine dependence, other tobacco product, uncomplicated
CPT/HCPCS: 71045; 80053; 81003; 84484; 85025; 93005; 96372; 99285; J1885

== ENCOUNTER 2022-12-17 19:59 | Emergency (ER) | payer MEDICAID, SELFPAY ==
[2022-04-08 10:26] VITALS: BP 142/106; BMI 44.5
[2022-12-17 20:03] VITALS: BP 191/118; RESP 18; TEMP 37.2; O2SAT 97
--- NOTE | 2022-12-17 20:09 | W.ED.EXTPRO ---
HPI - Extremity Problem General: Chief complaint: Extremity Injury, Upper Stated complaint: left wrist lac Time Seen by Provider: 12/17/22 20:07 History of Present Illness: 87-year-old male patient comes in today with injury to the left inner wrist. Patient reports that he was breaking down a old bookshelf and was pushing against the shelf when it broke causing him to injure his and her wrist. No active bleeding is noted. Patient has an abrasion to the inner wrist. Patient does not recall his last tetanus. Review of Systems Musc: Reports: extremity pain Skin/Breast: Reports: new lesions PFSH ED PFSH: Medical History Chronic post-traumatic stress disorder Clinical diagnosis of COVID-19 Depression, major, recurrent, severe with psychosis History of attention deficit hyperactivity disorder (ADHD) History of substance use disorder last use of alcohol reported as Jul 2021 last use of opiates, methamphetamines reported 2017 HTN (hypertension) Idiopathic mild intellectual disability Surgical History No pertinent past surgical history S/P knee surgery Family History Other Diabetes Family history of premature coronary artery disease Psychiatric illness Social History Smoking and tobacco status: current every day smoker (vapes/previously cig smoker) e-cigarettes E-Cigarette Details: with nicotine E-cig/vape details: takes 2 weeks to go through a pod Quit status (tobacco): considering quitting Second hand smoke exposure: Yes Alcohol intake: former Former alcohol use details: or 2020 Adopted: No Caregiver/support person: No Lives independently: Yes Household members: other Details: Sober living house Housing: House Marital status: Legally Number of children: 2 Number of grandchildren: 0 Highest education level completed: Some College, No Degree service: No Current occupational status: employed Current occupation: [employer] 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) Pets and animals: Yes Pets & animals: cat(s) History of recent travel: No Leisure activites: music Sexually active: No Current gender identity: Male Stephany/Mandaen: Rastafarian Special stephany needs: No Agree to transfusion: Yes Financial difficulty paying for basics: Hard Physical Exam Const: COMMON NORMALS: alert HENMT: COMMON NORMALS: normocephalic HEAD & SCALP: normocephalic Neck/C-Spine: COMMON NORMALS: full ROM Resp: COMMON NORMALS: normal respiratory effort Cardio: COMMON NORMALS: regular rate RATE: regular rate Extremity: LEFT UPPER EXTREMITY: Yes wrist (6 x 1 cm abrasion to the left inner wrist.) Left wrist: Yes ROM (Normal range of motion) Neuro: SENSORIUM/ORIENTATION: Yes alert Skin: TRAUMA: abrasion (Left wrist) Course Vital Signs: Vital signs: Vital Signs Temperature 99.0 F 12/17/22 20:03 Respiratory Rate 18 12/17/22 20:03 Blood Pressure 191/118 12/17/22 20:03 Pulse Oximetry 97 12/17/22 20:03 Oxygen Delivery Me thod 12/17/22 20:03 MDM - Extremity (Nontraumatic) Medical Decision Making Patient comes in today for injury to the left wrist. On exam we know a 6 cm linear abrasion. No significant depth to the wound. Patient moves extremities well. No foreign bodies were noted. Differential diagnosis includes abrasion, laceration, foreign body. No signs of severe injury is noted. Reviewed exam with patient. Updated patient's tetanus. Prescription for bacitracin ointment and recommendations for treatment was explained to patient. Patient reported understanding and agreed to plan. Discharge Plan Discharge Patient Disposition: Home Clinical Impression: Abrasion of left wrist Qualifiers: Encounter type: initial encounter Qualified Code(s): S60.812A - Abrasion of left wrist, initial encounter Condition: Stable Prescriptions: New bacitracin 500 unit/gram ointment 1 applic topical BID Qty: 28 0RF No Action carvedilol 12.5 mg tablet 12.5 mg PO BID Qty: 60 3RF Rx Instructions: must administer with a meal/food fluticasone propionate 50 mcg/actuation spray,suspension 2 spray intranasal DAILY PRN (Reason: allergy symptoms) Qty: 16 0RF Rx Instructions: administer into each nostril Medrol (Bhupendra) 4 mg tablets,dose pack See Rx Instructions .ROUTE .COMPLEX Qty: 21 0RF Rx Instructions: orally per package directions Naprosyn 500 mg tablet 500 mg PO BID PRN (Reason: pain) Qty: 20 0RF Discharge Orders: Discharge ED (Routine); Ordered 12/17/22 Ordered By: Heladio Lopez Referrals: Drake Hernandez DO [Primary Care Provider] - Discharge Diet: Usual diet Discharge Activity: Increase activity as tolerated Patient Instructions: Abrasion (ED) Activity Restrictions/Additional Instructions: Clean wound 2 times a day with soap and water, apply antibiotic ointment, and apply dry dressing. Follow-up with primary care as needed. Return to ED for new concerns. Coding Level of Care Code ED Social Sciences Professor for Aby Dixon
[2022-12-17] MEDS: tetanus-dipt-pertussis 0.5 mL SDV IM (20:32)
[2022-12-17 20:36] VITALS: BP 171/117; PULSE 103; RESP 16
== END 2022-12-17 20:38 | disposition home or self-care (01) ==
PROVIDERS: Emergency Provider Nurse Practitioner Family; PCP Family Medicine
DX: S60.812A Abrasion of left wrist, initial encounter (principal); I10 Essential (primary) hypertension; Z23 Encounter for immunization; F17.290 Nicotine dependence, other tobacco product, uncomplicated; W22.8XXA Striking against or struck by other objects, initial encounter
CPT/HCPCS: 90471; 90715; 99283

== ENCOUNTER → 2022-12-18 14:02 | Outpatient (BNVA) | payer OTHER, SELFPAY ==
[2022-04-08 10:26] VITALS: BP 142/106; BMI 44.5
== END ==
PROVIDERS: PCP Family Medicine; Visit Provider Nurse Practitioner Psychiatric/Mental Health
DX: F41.9 Anxiety disorder, unspecified (principal); F43.12 Post-traumatic stress disorder, chronic
CPT/HCPCS: 80061; 83036

== ENCOUNTER 2022-12-21 10:50 | Emergency (ER) | payer MEDICAID, SELFPAY ==
[2022-04-08 10:26] VITALS: BP 142/106; BMI 44.5
--- NOTE | 2022-12-21 10:53 | W.ED.CHESTPA ---
HPI - Chest Pain General: Chief Complaint: Chest Pain Stated Complaint: CHEST PAIN Time Seen by Provider: 12/21/22 10:53 Source: patient and EMS Mode of arrival: EMS Limitations: no limitations History of Present Illness: Patient is a 37-year-old male with fairly extensive ED visit history here for complaints of chest pain and hypertension. Patient has been seen for these identical complaints multiple multiple times here. Patient tells me he is taking lisinopril 20mg daily for high blood pressure. I had pharmacy do a med rec on patient and he is supposed to be taking HCTZ and Lisinopril daily but neither one of these medications have been filled since August. When questioned patient states that he often does not take his medications. Apparently at work today he began feeling dizzy and started having chest pain thus prompting his ED visit currently. Patient does see cardiology through [facility]. complaint: chest pain Onset (ago): hour(s) Timing of current episode: episodic Prior episodes: Yes Pain location: substernal Pain radiation: none Severity: mild Relieving factors: nothing Exacerbating factors: nothing Associated symptoms: Reports no associated symptoms; Deny abdominal pain, dyspnea, palpitations or syncope Treatment prior to arrival: none Review of Systems Eyes: Denies: change in vision, blurry vision, floaters or seeing flashes Card: Reports: chest pain; Denies: palpitations, irregular heart rhythm, edema, swelling of feet/ankles, lightheadedness, syncope, pre-syncope, dyspnea on exertion, orthopnea, leg pain with exertion or acrocyanosis Resp: Denies: dyspnea, pain on inspiration or chest congestion GI: Denies: abdominal pain Musc: Denies: back pain Neuro: Denies: headache(s), numbness in extremities, weakness in extremities, sensory changes, lack of coordination, difficulty walking, dizziness, vertigo, confusion, behavioral changes, Slurred speech present or difficulty communicating thoughts PFS ED PFSH: Medical History Chronic post-traumatic stress disorder Clinical diagnosis of COVID-19 Depression, major, recurrent, severe with psychosis History of attention deficit hyperactivity disorder (ADHD) History of substance use disorder last use of alcohol reported as Jul 2021 last use of opiates, methamphetamines reported 2017 HTN (hypertension) Idiopathic mild intellectual disability Surgical History No pertinent past surgical history S/P knee surgery Family History Other Diabetes Family history of premature coronary artery disease Psychiatric illness Social History Smoking and tobacco status: current every day smoker (vapes/previously cig smoker) e-cigarettes E-Cigarette Details: with nicotine E-cig/vape details: takes 2 weeks to go through a pod Quit status (tobacco): considering quitting Second hand smoke exposure: Yes Alcohol intake: former Former alcohol use details: or 2020 Adopted: No Caregiver/support person: No Lives independently: Yes Household members: other Details: Sober living house Housing: House Marital status: Legally Number of children: 2 Number of grandchildren: 0 Highest education level completed: Some College, No Degree service: No Current occupational status: employed Current occupation: [employer] 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) Pets and animals: Yes Pets & animals: cat(s) History of recent travel: No Leisure activites: music Sexually active: No Current gender identity: Male Stephany/Scientologist: Anglican Special stephany needs: No Agree to transfusion: Yes Financial difficulty paying for basics: Hard Physical Exam Const: COMMON NORMALS: no acute distress, patient oriented x3, no limitations and alert GENERAL APPEARANCE: cooperative NUTRITIONAL APPEARANCE: obese morbidly obese ORIENTATION/CONSCIOUSNESS: Yes awake, Yes oriented to person, Yes oriented to place and Yes oriented to time HENMT: COMMON NORMALS: normocephalic and atraumatic HEAD & SCALP: normal to inspection, normocephalic and atraumatic Resp: COMMON NORMALS: normal respiratory effort and clear to auscultation bilaterally AUSCULTATION: clear to auscultation bilaterally Cardio: COMMON NORMALS: regular rate and regular rhythm RATE: regular rate RHYTHM: regular rhythm GI: COMMON NORMALS: Normal to inspection, nondistended, normoactive bowel sounds present, Soft to palpation, non-tender and no masses PALPATION: Yes Soft to palpation Extremity: COMMON NORMALS: normal to inspection, no clubbing, cyanosis or edema, no calf tenderness and no pedal edema GENERAL: Yes normal exam except as noted Neuro: ANALI COMA SCALE: document GCS findings Anali coma scale eye opening: Spontaneous Anali coma scale verbal response: Orientated Anali coma scale motor response: Obey commands [place] coma scale total score: 15 COMMON NORMALS: patient oriented x3, CN's II-XII intact bilaterally, moves all extremities, no focal motor deficits, no sensory deficits noted and gait normal SENSORIUM/ORIENTATION: Yes alert, Yes oriented to person, Yes oriented to place and Yes oriented to time Course Vital Signs: Vital signs: Vital Signs Temperature 98.8 F 12/21/22 11:04 Pulse Rate 89 12/21/22 11:04 Respiratory Rate 15 12/21/22 11:04 Blood Pressure 164/105 12/21/22 11:04 Pulse Oximetry 100 12/21/22 11:04 Oxygen Delivery Me thod 12/21/22 11:04 MDM - Chest Pain Medical Decision Making Patient with chronically uncontrolled hypertension. He does not take his medications as prescribed as his lisinopril and HCTZ have not been filled from the pharmacy in over 3 months (they were 15 and 30-day supplies). His EKG is normal. Troponin is negative. Remainder of blood work is unremarkable. Patient was strongly encouraged to take his medications every day as they are prescribed and to keep a reliable blood pressure log so that cardiology or PCP can adjust these as needed. We will have case management get him a follow-up for cardiology in regards to the chest pain. Return to ED precautions given. Medical Records I reviewed the patient's medical records. Lab Data I reviewed the patient's lab results. 12/21/22 10:58 12/21/22 10:58 Radiology Impressions Chest X-Ray 12/21/22 10:59 IMPRESSION: Unremarkable chest radiograph. Laboratory Results WBC 9.4 10^3/uL (4.0-10.0) 12/21/22 10:58 RBC 4.86 10^6/uL (4.1-5.3) 12/21/22 10:58 Hgb 14.3 g/dL (11.7-16.6) 12/21/22 10:58 Hct 42.8 % (42.0-52.0) 12/21/22 10:58 MCV 88.1 fl (80-94) 12/21/22 10:58 MCH 29.4 pg (28.0-34.0) 12/21/22 10:58 MCHC 33.4 g/dL (30.0-36.0) 12/21/22 10:58 RDW 12.7 % (12.1-15.1) 12/21/22 10:58 Plt Count 220 10^3/cmm (130-400) 12/21/22 10:58 MPV 8.9 fL (7.4-10.4) 12/21/22 10:58 Neut % (Auto) 61.7 % 12/21/22 10:58 Lymph % (Auto) 29.1 % 12/21/22 10:58 [place] % (Auto) 6.1 % 12/21/22 10:58 Eos % (Auto) 2.2 % 12/21/22 10:58 Baso % (Auto) 0.5 % 12/21/22 10:58 Neut # (Auto) 5.81 10^3/uL (1.8-7.7) 12/21/22 10:58 Lymph # (Auto) 2.8 10^3/uL (0.8-4.8) 12/21/22 10:58 [place] # (Auto) 0.6 10^3/uL (0.2-0.9) 12/21/22 10:58 Eos # (Auto) 0.2 10^3/uL (0.0-0.8) 12/21/22 10:58 Baso # (Auto) 0.1 10^3/uL (0.0-0.1) 12/21/22 10:58 Nucleated RBC % (auto) 0 % 12/21/22 10:58 Nucleated RBCs # 0.0 /100WBC 12/21/22 10:58 Sodium 134 mmol/L (136-145) L 12/21/22 10:58 Potassium 4.3 mmol/L (3.5-5.1) 12/21/22 10:58 Chloride 103 mmol/L (98-107) 12/21/22 10:58 Carbon Dioxide 21 mmol/L (22-29) L 12/21/22 10:58 Anion Gap 14.3 (5-19) 12/21/22 10:58 BUN 18 mg/dL (6-20) 12/21/22 10:58 Creatinine 0.9 mg/dL (0.7-1.2) 12/21/22 10:58 GFR Calculation 94.4 mL/min (90-130) 12/21/22 10:58 Glucose 99 mg/dL (65-115) 12/21/22 10:58 Calculated Osmolality 280 mOsm/kg (285-295) L 12/21/22 10:58 Calcium 9.4 mg/dL (8.5-10.5) 12/21/22 10:58 Total Bilirubin 0.3 mg/dL (0.15-1.2) 12/21/22 10:58 AST 33 U/L (0-40) 12/21/22 10:58 ALT 56 U/L (0-41) H 12/21/22 10:58 Alkaline Phosphatase 74 U/L (40-130) 12/21/22 10:58 Troponin T Baseline 9 ng/L (0-15) 12/21/22 10:58 Total Protein 7.8 g/dL (6.6-8.7) 12/21/22 10:58 Albumin 4.3 g/dL (3.5-5.2) 12/21/22 10:58 Globulin 3.5 g/dL (1.3-4.6) 12/21/22 10:58 EKG Data EKG 1: Interpretation: Sinus rhythm Rate [address] elevation or depression changes noted Discharge Plan Discharge Patient Disposition: Home Clinical Impression: Non compliance w medication regimen, Uncontrolled hypertension Chest pain Qualifiers: Chest pain type: unspecified Qualified Code(s): R07.9 - Chest pain, unspecified Condition: Stable Prescriptions: Continued lisinopril 20 mg Tablet 20 mg PO DAILY Qty: 30 2RF hydrochlorothiazide 25 mg Tablet 25 mg PO DAILY Qty: 30 2RF Discharge Orders: Discharge ED (Routine); Ordered 12/21/22 Ordered By: Ashlyn Reyes Referrals: Drake Hernandez, [Primary Care Provider] - Activity Restrictions/Additional Instructions: Case management should contact you shortly to help set you up with a cardiology follow-up so they can review blood pressure log and adjust medications as needed and provide further evaluation in regards to your chest pain. Coding Level of Care Code ED Box Storage Worker for Chg Fwd Exam Detailed
--- NOTE | 2022-12-21 10:59 | XR_ITS ---
WS: [id number] Exam: XR chest 1V portable [id number] Date/Time of Exam: 12/21/2022 11:07 AM Reason For Exam: chest pain Comparison 11/10/2022. Findings: The lungs are clear and fully expanded. Costophrenic angles are sharp. No infiltrates. Bronchovascula r relief appears normal. Cardiac silhouette is unremarkable. Bony elements are intact. XR/XR chest 1V portable [id number] IMPRESSION: Unremarkable chest radiograph.
[2022-12-21 11:04] VITALS: BP 164/105; PULSE 89; RESP 15; TEMP 37.1; O2SAT 100; BMI 43.7
[2022-12-21 11:14] LABS: Basophils # 0.1 10^3/uL (0.0-0.1); Basophils % 0.5 %; Eosinophils # 0.2 10^3/uL (0.0-0.8); Eosinophils % 2.2 %; Hematocrit 42.8 % (42.0-52.0); Hemoglobin 14.3 g/dL (11.7-16.6); Lymphocytes # 2.8 10^3/uL (0.8-4.8); Lymphocytes % 29.1 %; Mean Corpuscular HGB Conc 33.4 g/dL (30.0-36.0); Mean Corpuscular Hemoglobin 29.4 pg (28.0-34.0); Mean Corpuscular Volume 88.1 fl (80-94); Mean Platelet Volume 8.9 fL (7.4-10.4); Monocytes # 0.6 10^3/uL (0.2-0.9); Monocytes % 6.1 %; Neutrophils # 5.81 10^3/uL (1.8-7.7); Neutrophils % 61.7 %; Nucleated Red Blood Cells % 0 %; Platelet Count 220 10^3/cmm (130-400); Red Blood Count 4.86 10^6/uL (4.1-5.3); Red Cell Distribution Width 12.7 % (12.1-15.1); White Blood Count 9.4 10^3/uL (4.0-10.0)
--- NOTE | 2022-12-21 11:25 | ECG_ITS ---
[facility] Test Date: 2022-12-21 Pat Name: Wicho Lugo Department: Room: Gender: Male Senior Recruitment Consultant: : 1985 Requested By: Ashlyn Reyes Order Number: [id number] Sil MD: Bharat Payton M.D. Measurements Intervals [place] Rate: 82 P: 33 ME: 157 QRS: 11 QRSD: 107 T: 27 QT: 361 QTc: 422 Interpretive Statements SINUS RHYTHM Compared to ECG 11/10/2022 05:20:11 Intraventricular conduction delay no longer present Electronically Signed On 12-22-2022 7:41:53 CIRCLE CUTTING SAW OPERATOR by Bharat Payton M.D. [email or web address] Networksohiohealth nelsonville health centerVenture Catalysts/store/[id number]
[2022-12-21 11:47] LABS: Troponin(5th) Baseline 9 ng/L (0-15)
[2022-12-21 11:49] LABS: Alanine Aminotransferase 56 U/L (0-41); Albumin Level 4.3 g/dL (3.5-5.2); Alkaline Phosphatase 74 U/L (40-130); Blood Urea Nitrogen 18 mg/dL (6-20); Calcium 9.4 mg/dL (8.5-10.5); Carbon Dioxide 21 mmol/L (22-29); Chloride 103 mmol/L (98-107); Globulin 3.5 g/dL (1.3-4.6); Glomerular Filtration Rate 94.4 mL/min (90-130); Glucose 99 mg/dL (65-115); Osmolality Calculated 280 mOsm/kg (285-295); Sodium 134 mmol/L (136-145); Total Bilirubin 0.3 mg/dL (0.15-1.2); Total Protein 7.8 g/dL (6.6-8.7)
[2022-12-21 11:50] LABS: Anion Gap 14.3 (5-19); Aspartate Amino Transferase 33 U/L (0-40); Potassium 4.3 mmol/L (3.5-5.1)
[2022-12-21] MEDS: hydroCHLOROthiazide 25 mg Tablet PO (11:57)
[2022-12-21] MEDS: lisinopril 20 mg Tablet PO (11:57)
[2022-12-21 12:14] VITALS: BP 185/123; PULSE 88; RESP 18; O2SAT 97
--- NOTE | 2022-12-21 14:30 | DCPLANNER ---
Addendum entered by Shonda Noel 01/27/23 07:59: Patient had a follow up appointment scheduled with [facility] - patient did attend appointment Addendum entered by Shonda Noel 01/01/23 08:23: Patient has a followup appointment scheduled for Thursday, January 12, 2023 at 11:[address] Decker at [facility]. Clinic will call patient with appointment information. Addendum entered by Shonda Noel 12/24/22 12:48: Patient has a follow up appointment scheduled for Wednesday, February 22, 2023 at 11:[address] Ozuna at [facility]. Clinic will call patient with appointment information. Original Note: truck terminal manager had message to schedule a follow up appointment for patient with cardiology. truck terminal manager sent patients information to front office staff at [facility]. Patients information will be printed and reviewed. Clinic will call patient with appointment information.
== END 2022-12-21 12:15 | disposition home or self-care (01) ==
PROVIDERS: Emergency Provider Physician Assistant; PCP Family Medicine
DX: R07.9 Chest pain, unspecified (principal); I10 Essential (primary) hypertension; Z91.14 Patient's other noncompliance with medication regimen; F17.210 Nicotine dependence, cigarettes, uncomplicated
CPT/HCPCS: 71045; 80053; 84484; 85025; 93005; 99285

== ENCOUNTER 2022-12-24 15:42 | Inpatient (IN) | payer MEDICAID, SELFPAY ==
[2022-04-08 10:26] VITALS: BP 142/106; BMI 44.5
[2022-12-24 15:49] VITALS: BP 116/88; PULSE 55; RESP 20; O2SAT 100; BMI 43.7
--- NOTE | 2022-12-24 15:50 | W.ED.PSYCHS ---
HPI - Psych General: Chief Complaint: Psychiatric Symptoms Stated Complaint: mhe Time Seen by Provider: 12/24/22 15:48 History of Present Illness: Mr. Lugo is a 37-year-old male with history of hypertension, substance abuse, PTSD presenting to the emergency department for suicidal ideation and depression. He reports worsening symptoms for a number of weeks and intentionally injured his wrist about 5 days ago without told people it was an accident. He reports visual hallucinations and no longer feels safe and believes he may be a danger to himself. He reports sleep disturbance and appetite disturbance as well as nightmares. He is no longer taking his medications for depression. Intensity symptoms is moderate to severe. Course is worsened. No other specific changes in health, exacerbating, or alleviating factors identified. Onset (ago): week(s) Duration: getting worse History of same: Yes Relieving factors: none Exacerbating factors: none Associated psychiatric symptoms: depression and visual hallucinations If self harm: admits thoughts of self harm and has acted on plan Review of Systems General: Reports: 10 or more systems reviewed and unremarkable except in HPI and below PFSH ED PFSH: Medical History (Updated 01/03/23 @ 17:52 by Gil Donohue MD) Chronic post-traumatic stress disorder Clinical diagnosis of COVID-19 Depression, major, recurrent, severe with psychosis History of attention deficit hyperactivity disorder (ADHD) History of substance use disorder last use of alcohol reported as Jul 2021 last use of opiates and methamphetamines reported 2018 last use of marijuana Oct 2022 HTN (hypertension) Idiopathic mild intellectual disability Schizoaffective disorder, depressive type Surgical History No pertinent past surgical history S/P knee surgery Family History Other Diabetes Family history of premature coronary artery disease Psychiatric illness Social History Smoking and tobacco status: current every day smoker (vapes/previously cig smoker) e-cigarettes E-Cigarette Details: with nicotine E-cig/vape details: takes 2 weeks to go through a pod Quit status (tobacco): considering quitting Second hand smoke exposure: Yes Alcohol intake: former Former alcohol use details: or 2020 Adopted: No Caregiver/support person: No Lives independently: Yes Household members: other Details: Sober living house Housing: House Marital status: Legally Number of children: 2 Number of grandchildren: 0 Highest education level completed: Some College, No Degree service: No Current occupational status: employed Current occupation: [employer] 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) Pets and animals: Yes Pets & animals: cat(s) History of recent travel: No Leisure activites: music Sexually active: No Current gender identity: Male Stephany/Mosque: Quaker Special stephany needs: No Agree to transfusion: Yes Financial difficulty paying for basics: Hard Physical Exam Const: COMMON NORMALS: alert GENERAL APPEARANCE: cooperative and well developed HENMT: COMMON NORMALS: normocephalic and atraumatic HEAD & SCALP: normocephalic and atraumatic Eye: COMMON NORMALS: conjunctivae normal CONJUNCTIVA: Yes conjunctivae normal SCLERA: sclerae normal Neck/C-Spine: COMMON NORMALS: supple GENERAL: Yes trachea midline Resp: COMMON NORMALS: clear to auscultation bilaterally EFFORT & INSPECTION: Yes able to speak in complete sentences AUSCULTATION: clear to auscultation bilaterally Cardio: COMMON NORMALS: regular rate and regular rhythm RATE: regular rate RHYTHM: regular rhythm Extremity: NARRATIVE EXTREMITY EXAM: Left wrist healing laceration which is mildly irregular on the anterior distal surface of the forearm, no evidence of infection, longitudinally oriented. GENERAL: Yes normal exam except as noted and No edema Neuro: COMMON NORMALS: moves all extremities SENSORIUM/ORIENTATION: Yes alert and No Orientation impaired Psych: COMMON NORMALS: mental status grossly normal and Normal thought process present MOOD & AFFECT: Yes depressed mood THOUGHT PROCESS: Normal thought process present THOUGHT CONTENT: Yes Suicidality present and Yes Hallucination(s) present Course Vital Signs: Vital signs: Vital Signs Temperature 98 F 12/26/22 14:00 Pulse Rate 92 12/26/22 16:29 Respiratory Rate 16 12/26/22 16:29 Blood Pressure 137/84 12/26/22 16:29 Pulse Oximetry 98 12/26/22 16:29 Oxygen Delivery Me thod 12/25/22 21:28 MDM - Psych Medical Decision Making 37-year-old gentleman presenting with suicidal and homicidal ideation. Exam as above. No significant hematologic or metabolic abnormalities, mildly improved from recent prior. Toxic ingestions and urine drug screen are negative. Given provided clinical history and physical exam there is no indication for imaging at this time. Prior recent chest x-rays reviewed. Most likely etiology of symptoms is homicidal and suicidal ideation secondary to psychiatric disorder. Based on ED evaluation at this point there is no obvious condition that would preclude the patient from inpatient management psychiatric concerns/symptoms. The results of ED evaluation were discussed with the patient including plan for admission due to requirement for level of care not available if discharged to prevent significant worsening/deterioration. Patient agreeable with plan. Discussed with psychiatry service who was agreeable to admit patient. Medical Records I reviewed the patient's medical records. Lab Data I reviewed the patient's lab results. 12/24/22 16:18 12/24/22 16:18 Laboratory Results WBC 9.1 10^3/uL (4.0-10.0) 12/24/22 16:18 RBC 5.25 10^6/uL (4.1-5.3) 12/24/22 16:18 Hgb 15.0 g/dL (11.7-16.6) 12/24/22 16:18 Hct 46.0 % (42.0-52.0) 12/24/22 16:18 MCV 87.6 fl (80-94) 12/24/22 16:18 MCH 28.6 pg (28.0-34.0) 12/24/22 16:18 MCHC 32.6 g/dL (30.0-36.0) 12/24/22 16:18 RDW 12.8 % (12.1-15.1) 12/24/22 16:18 Plt Count 250 10^3/cmm (130-400) 12/24/22 16:18 MPV 9.0 fL (7.4-10.4) 12/24/22 16:18 Neut % (Auto) 55.4 % 12/24/22 16:18 Lymph % (Auto) 33.1 % 12/24/22 16:18 [place] % (Auto) 7.9 % 12/24/22 16:18 Eos % (Auto) 2.8 % 12/24/22 16:18 Baso % (Auto) 0.6 % 12/24/22 16:18 Neut # (Auto) 5.02 10^3/uL (1.8-7.7) 12/24/22 16:18 Lymph # (Auto) 3.0 10^3/uL (0.8-4.8) 12/24/22 16:18 [place] # (Auto) 0.7 10^3/uL (0.2-0.9) 12/24/22 16:18 Eos # (Auto) 0.3 10^3/uL (0.0-0.8) 12/24/22 16:18 Baso # (Auto) 0.1 10^3/uL (0.0-0.1) 12/24/22 16:18 Nucleated RBC % (auto) 0 % 12/24/22 16:18 Nucleated RBCs # 0.0 /100WBC 12/24/22 16:18 Sodium 137 mmol/L (136-145) 12/24/22 16:18 Potassium 3.7 mmol/L (3.5-5.1) 12/24/22 16:18 Chloride 101 mmol/L (98-107) 12/24/22 16:18 Carbon Dioxide 26 mmol/L (22-29) 12/24/22 16:18 Anion Gap 13.7 (5-19) 12/24/22 16:18 BUN 21 mg/dL (6-20) H 12/24/22 16:18 Creatinine 1.1 mg/dL (0.7-1.2) 12/24/22 16:18 GFR Calculation 74.9 mL/min (90-130) L 12/24/22 16:18 Glucose 106 mg/dL (65-115) 12/24/22 16:18 Calculated Osmolality 287 mOsm/kg (285-295) 12/24/22 16:18 Calcium 9.7 mg/dL (8.5-10.5) 12/24/22 16:18 Total Bilirubin 0.2 mg/dL (0.15-1.2) 12/24/22 16:18 AST 27 U/L (0-40) 12/24/22 16:18 ALT 57 U/L (0-41) H 12/24/22 16:18 Alkaline Phosphatase 82 U/L (40-130) 12/24/22 16:18 Total Protein 7.3 g/dL (6.6-8.7) 12/24/22 16:18 Albumin 4.2 g/dL (3.5-5.2) 12/24/22 16:18 Globulin 3.1 g/dL (1.3-4.6) 12/24/22 16:18 TSH 2.37 uIU/mL (0.27-4.20) 12/24/22 16:18 Salicylates < 0.3 mg/dL (3-10) L 12/24/22 16:18 Acetaminophen < 5.0 ug/mL (10-30) L 12/24/22 16:18 Ethyl Alcohol < 10 mg/dL (0-10) 12/24/22 16:18 Discharge Plan Discharge Patient Disposition: Admitted As Inpatient Admit Provider: Nasir Dexter Clinical Impression: Suicidal ideation, Homicidal ideation Condition: Stable Discharge Diet: Regular Discharge Activity: Resume usual activity Coding Level of Care Code ED [employer] Spr[employer] Supervisor for Aby Fwkaren Exam Comprehensive
[2022-12-24 16:05] VITALS: TEMP 36.7
--- NOTE | 2022-12-24 16:12 | PC.PHAR ---
pt states he takes care of his own medications-pt brought in med bottles for hctz 25mg daily and lisinopril 20mg daily filled 12/21/22 pt states he takes hctz 25mg bid and lisinopril 20mg bid-notes are made in the pharmacy comments
[2022-12-24 16:28] LABS: Basophils # 0.1 10^3/uL (0.0-0.1); Basophils % 0.6 %; Eosinophils # 0.3 10^3/uL (0.0-0.8); Eosinophils % 2.8 %; Lymphocytes % 33.1 %; Mean Corpuscular HGB Conc 32.6 g/dL (30.0-36.0); Mean Corpuscular Hemoglobin 28.6 pg (28.0-34.0); Mean Corpuscular Volume 87.6 fl (80-94); Monocytes # 0.7 10^3/uL (0.2-0.9); Monocytes % 7.9 %; Neutrophils # 5.02 10^3/uL (1.8-7.7); Neutrophils % 55.4 %; Nucleated Red Blood Cells % 0 %; Platelet Count 250 10^3/cmm (130-400); Red Blood Count 5.25 10^6/uL (4.1-5.3); Red Cell Distribution Width 12.8 % (12.1-15.1); White Blood Count 9.1 10^3/uL (4.0-10.0)
[2022-12-24 17:05] LABS: Alanine Aminotransferase 57 U/L (0-41); Albumin Level 4.2 g/dL (3.5-5.2); Alkaline Phosphatase 82 U/L (40-130); Anion Gap 13.7 (5-19); Aspartate Amino Transferase 27 U/L (0-40); Blood Urea Nitrogen 21 mg/dL (6-20); Calcium 9.7 mg/dL (8.5-10.5); Carbon Dioxide 26 mmol/L (22-29); Chloride 101 mmol/L (98-107); Globulin 3.1 g/dL (1.3-4.6); Glomerular Filtration Rate 74.9 mL/min (90-130); Glucose 106 mg/dL (65-115); Osmolality Calculated 287 mOsm/kg (285-295); Potassium 3.7 mmol/L (3.5-5.1); Sodium 137 mmol/L (136-145); Thyroid Stimulating Hormone 2.37 uIU/mL (0.27-4.20); Total Bilirubin 0.2 mg/dL (0.15-1.2); Total Protein 7.3 g/dL (6.6-8.7)
[2022-12-24 17:08] LABS: Acetaminophen < 5.0 ug/mL (10-30); Alcohol Level < 10 mg/dL (0-10); Salicylate < 0.3 mg/dL (3-10)
[2022-12-24 18:56] VITALS: BP 132/85; PULSE 113; RESP 18; TEMP 37; O2SAT 96
[2022-12-24 20:25] VITALS: BP 132/85; PULSE 113; RESP 18; TEMP 37; O2SAT 96
[2022-12-24] MEDS: trazodone 50 mg Tablet PO (21:38)
[2022-12-24] MEDS: hyDROXYzine 25 mg Capsule 50 MG PO (21:38)
[2022-12-24] MEDS: nicotine 2 mg Gum BUCCAL (21:50)
[2022-12-25] MEDS: nicotine 2 mg Gum BUCCAL ×4 (08:31→20:34)
[2022-12-25] MEDS: lisinopril 20 mg Tablet PO ×2 (08:31→17:18)
[2022-12-25] MEDS: hydroCHLOROthiazide 25 mg Tablet PO ×2 (08:31→17:18)
--- NOTE | 2022-12-25 09:01 | PC.OT ---
OT Eval Attempted - Patient asleep at time of evaluation, will attempt again later this day.
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
[2022-12-25 14:00] VITALS: BP 99/64; PULSE 96; RESP 18; TEMP 36.6; O2SAT 94
--- NOTE | 2022-12-25 16:24 | PC.OT ---
OT Eval Attempted - Patient asleep at time of evaluation.
[2022-12-25] MEDS: fluoxetine 20 mg Capsule PO (17:18)
[2022-12-25] MEDS: hyDROXYzine 25 mg Capsule 50 MG PO (21:08)
[2022-12-25] MEDS: acetaminophen 325 mg Tablet 650 MG PO (21:10)
[2022-12-25 21:28] VITALS: BP 113/78; PULSE 107; RESP 17; TEMP 37; O2SAT 97
[2022-12-25 21:46] LABS: Amphetamines Screen Urine Negative (Negative); Barbiturates Screen Urine Negative (Negative); Benzodiazepines Screen Urine Negative (Negative); Cocaine Screen Urine Negative (Negative); Opiate Screen Urine Negative (Negative); PCP Screen Urine Negative (Negative); THC Screen Urine Negative (Negative)
[2022-12-26] MEDS: lisinopril 20 mg Tablet PO ×2 (09:03→17:39)
[2022-12-26] MEDS: hydroCHLOROthiazide 25 mg Tablet PO ×2 (09:03→17:39)
[2022-12-26] MEDS: fluoxetine 20 mg Capsule PO ×2 (09:03→17:39)
--- NOTE | 2022-12-26 10:00 | PC.NURSE ---
Pt resting in bed. Responded to name being called. Said his goal today was to rest. Denied anxiety, depression suicidal/homicidal thoughts and hallucinations. Pt reported he tossed and turned last night and didn't sleep well. Reported a good appetite. Didn't answer when his bowels last moved. Little eye contact from pt. Pt remains in bed.
[2022-12-26] MEDS: nicotine 2 mg Gum BUCCAL ×2 (11:51→14:54)
[2022-12-26 14:00] VITALS: BP 118/81; PULSE 97; RESP 18; TEMP 36.6; O2SAT 97
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
[2022-12-26 16:29] VITALS: BP 137/84; PULSE 92; RESP 16; O2SAT 98
== END 2022-12-26 17:58 | disposition home or self-care (01) | DRG 885 ==
LOC: ER 18:00 → NP 18:15
PROVIDERS: Admitting Provider Psychiatry & Neurology Psychiatry; Emergency Provider Emergency Medicine; PCP Family Medicine; Visit Provider Psychiatry & Neurology Psychiatry
DX: F33.3 Major depressive disorder, recurrent, severe with psychotic symptoms (principal); R45.851 Suicidal ideations; T43.206A Underdosing of unspecified antidepressants, initial encounter; Z91.128 Patient's intentional underdosing of medication regimen for other reason; F10.91 Alcohol use, unspecified, in remission; F15.11 Other stimulant abuse, in remission; F11.11 Opioid abuse, in remission; F12.11 Cannabis abuse, in remission; F43.12 Post-traumatic stress disorder, chronic; F17.290 Nicotine dependence, other tobacco product, uncomplicated; I10 Essential (primary) hypertension; Z91.52 Personal history of nonsuicidal self-harm; Z91.14 Patient's other noncompliance with medication regimen
CPT/HCPCS: 36415; 80053; 80306; 80307; 84443; 85025; 99285

== ENCOUNTER 2023-01-06 12:23 | Emergency (ER) | payer MEDICAID, SELFPAY ==
[2023-01-05 17:00] VITALS: BMI 43.8
[2023-01-06 12:27] VITALS: BP 176/110; PULSE 118; RESP 20; TEMP 37.1; O2SAT 97; BMI 43.7
--- NOTE | 2023-01-06 12:31 | ECG_ITS ---
[facility] Test Date: 2023-01-06 Pat Name: Wicho Lugo Department: Room: Gender: Male Reservations Manager: : 1985 Requested By: Americo Tomas Order Number: [id number] Sil MD: Angelia Olea M.D. Measurements Intervals [place] Rate: 118 P: 54 PA: 167 QRS: 1 QRSD: 120 T: 41 QT: 336 QTc: 471 Interpretive Statements SINUS TACHYCARDIA MODERATE INTRAVENTRICULAR CONDUCTION DELAY [110+ ms QRS DURATION] ABNORMAL RHYTHM ECG Compared to ECG 12/21/2022 11:25:01 Intraventricular conduction delay now present Sinus rhythm no longer present Electronically Signed On 01-07-2023 0:06:37 EQUIPMENT SERVICE ENGINEER by Angelia Olea M.D. [email or web address]
--- NOTE | 2023-01-06 14:40 | W.ED.CHESTPA ---
Documented by User: MARIO Laurent 01/06/23 16:40 HPI - Chest Pain General: Chief Complaint: Chest Pain Stated Complaint: cp Source: patient Mode of arrival: ambulatory Limitations: no limitations History of Present Illness: Patient is a 37-year-old male well-known to our emergency department here for complaints of chest pain that began earlier today after I just got done taking a shit . Patient has been seen in our ED several times for complaints of chest pain. Patient states his pain today feels similar only worse . He states he checked his blood pressure prior to arrival and it was high. Patient has a longstanding history of hypertension. He is currently on lisinopril and HCTZ (states he has been taking these as prescribed-there have been some issues with noncompliance previously). MD complaint: chest pain Onset (ago): hour(s) Timing of current episode: constant Prior episodes: Yes Pain location: substernal Pain radiation: none Severity: moderate Relieving factors: nothing Exacerbating factors: nothing Associated symptoms: Reports no associated symptoms; Deny abdominal pain, dyspnea, fever(s), nausea, palpitations, syncope or vomiting Treatment prior to arrival: none Risk Factors: Coronary artery disease risk factors: hypertension Thoracic aortic dissection risk factors: none Review of Systems Const: Denies: fever(s), chills, body aches, fatigue or malaise Eyes: Denies: change in vision, blurry vision, photophobia, floaters or seeing flashes Card: Reports: chest pain; Denies: palpitations, irregular heart rhythm, edema, swelling of feet/ankles, lightheadedness, syncope, pre-syncope, dyspnea on exertion, orthopnea, leg pain with exertion or acrocyanosis Resp: Denies: dyspnea, productive cough, non-productive cough, wheezing, pain on inspiration, hemoptysis or chest congestion GI: Denies: abdominal pain, nausea, vomiting or change in bowel habits Musc: Denies: neck pain, back pain, extremity pain, extremity swelling, joint pain or joint swelling Skin/Breast: Denies: changes in skin color Neuro: Denies: headache(s), numbness in extremities, weakness in extremities, sensory changes or dizziness PFSH ED PFSH: Medical History Chronic post-traumatic stress disorder Clinical diagnosis of COVID-19 Depression, major, recurrent, severe with psychosis History of attention deficit hyperactivity disorder (ADHD) History of substance use disorder last use of alcohol reported as Jul 2021 last use of opiates and methamphetamines reported 2018 last use of marijuana Oct 2022 HTN (hypertension) Idiopathic mild intellectual disability Schizoaffective disorder, depressive type Surgical History No pertinent past surgical history S/P knee surgery Family History Other Diabetes Family history of premature coronary artery disease Psychiatric illness Social History Smoking and tobacco status: current every day smoker (vapes/previously cig smoker) e-cigarettes E-Cigarette Details: with nicotine E-cig/vape details: takes 2 weeks to go through a pod Quit status (tobacco): considering quitting Second hand smoke exposure: Yes Alcohol intake: former Former alcohol use details: or 2020 Adopted: No Caregiver/support person: No Lives independently: Yes Household members: other Details: Sober living house Housing: House Marital status: Legally Number of children: 2 Number of grandchildren: 0 Highest education level completed: Some College, No Degree service: No Current occupational status: employed Current occupation: [employer] 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) Pets and animals: Yes Pets & animals: cat(s) History of recent travel: No Leisure activites: music Sexually active: No Current gender identity: Male Stephany/Christian: Cheondoism Special stephany needs: No Agree to transfusion: Yes Financial difficulty paying for basics: Hard Physical Exam Const: COMMON NORMALS: no acute distress, patient oriented x3, no limitations and alert GENERAL APPEARANCE: cooperative NUTRITIONAL APPEARANCE: obese morbidly obese ORIENTATION/CONSCIOUSNESS: Yes awake, Yes oriented to person, Yes oriented to place and Yes oriented to time HENMT: COMMON NORMALS: normocephalic and atraumatic HEAD & SCALP: normal to inspection, normocephalic and atraumatic Neck/C-Spine: COMMON NORMALS: full ROM, no lymphadenopathy, no JVD and No carotid bruits Chest: COMMONS NORMALS: normal inspection of the chest and normal palpation of entire chest wall Resp: COMMON NORMALS: normal respiratory effort and clear to auscultation bilaterally AUSCULTATION: clear to auscultation bilaterally Cardio: COMMON NORMALS: no JVD, regular rhythm and Peripheral pulses 2+ throughout RATE: tachycardic (mild) RHYTHM: regular rhythm PERIPHERAL PULSES: Peripheral pulses 2+ throughout GI: COMMON NORMALS: Normal to inspection, nondistended, normoactive bowel sounds present, Soft to palpation, non-tender, No hepatosplenomegaly present and no masses PALPATION: Yes Soft to palpation and Yes No hepatosplenomegaly present Extremity: COMMON NORMALS: normal to inspection, capillary refill normal, no clubbing, cyanosis or edema and no calf tenderness GENERAL: Yes normal exam except as noted Neuro: ANALI COMA SCALE: document GCS findings Anali coma scale eye opening: Spontaneous Anali coma scale verbal response: Orientated [place] coma scale motor response: Obey commands [place] coma scale total score: 15 COMMON NORMALS: patient oriented x3, moves all extremities, no focal motor deficits and no sensory deficits noted SENSORIUM/ORIENTATION: Yes alert, Yes oriented to person, Yes oriented to place and Yes oriented to time Skin: COMMON NORMALS: no rashes or lesions noted GENERAL SKIN EXAM: no rashes or lesions noted Course Vital Signs: Vital signs: Vital Signs Temperature 98.8 F 01/06/23 12:27 Pulse Rate 90 01/06/23 16:47 Respiratory Rate 27 H 01/06/23 16:47 Blood Pressure 134/78 01/06/23 16:47 Pulse Oximetry 98 01/06/23 16:47 Oxygen Delivery Me thod 01/06/23 16:47 MDM - Chest Pain Medical Decision Making Patient is a 37-year-old male with a longstanding history of chest pains. He has been seen in our emergency department multiple times for chest pains. Chest pain today started several several hours ago. Initial EKG showing no ischemic changes. This was repeated several hours later with no changes. This was compared to EKGs previous visits and no changes are noted. CXR is normal. Patient's troponin is normal. Patient has appointment with cardiology scheduled for 01/12. Return to ED precautions given. Lab Data 01/06/23 15:24 01/06/23 15:24 Radiology Impressions Chest X-Ray 01/06/23 14:47 IMPRESSION: No acute findings. Laboratory Results WBC 7.1 10^3/uL (4.0-10.0) 01/06/23 15: RBC 4.51 10^6/uL (4.1-5.3) 01/06/23 15: Hgb 13.2 g/dL (11.7-16.6) 01/06/23 15: Hct 39.6 % (42.0-52.0) L 01/06/23 15: MCV 87.8 fl (80-94) 01/06/23 15: MCH 29.3 pg (28.0-34.0) 01/06/23 15: MCHC 33.3 g/dL (30.0-36.0) 01/06/23: RDW 12.6 % (12.1-15.1) 01/06/23: Plt Count 205 10^3/cmm (130-400) 01/06/23: MPV 9.2 fL (7.4-10.4) 01/06/23 15: Neut % (Auto) 57.2 % 01/06/23: Lymph % (Auto) 33.3 % 01/06/23: [place] % (Auto) 6.4 % 01/06/23: Eos % (Auto) 2.2 % 01/06/23: Baso % (Auto) 0.6 % 01/06/23: Neut # (Auto) 4.08 10^3/uL (1.8-7.7) 01/06/23: Lymph # (Auto) 2.4 10^3/uL (0.8-4.8) 01/06/23: [place] # (Auto) 0.5 10^3/uL (0.2-0.9) 01/06/23: Eos # (Auto) 0.2 10^3/uL (0.0-0.8) 01/06/23: Baso # (Auto) 0.0 10^3/uL (0.0-0.1) 01/06/23: Nucleated RBC % (auto) 0 % 01/06/23: Nucleated RBCs # 0.0 /100WBC 01/06/23 15: Sodium 136 mmol/L (136-145) 01/06/23 15:24 Potassium 3.7 mmol/L (3.5-5.1) 01/06/23 15:24 Chloride 102 mmol/L (98-107) 01/06/23 15:24 Carbon Dioxide 21 mmol/L (22-29) L 01/06/23 15:24 Anion Gap 16.7 (5-19) 01/06/23 15:24 BUN 13 mg/dL (6-20) 01/06/23 15:24 Creatinine 0.9 mg/dL (0.7-1.2) 01/06/23 15:24 GFR Calculation 94.4 mL/min (90-130) 01/06/23 15:24 Glucose 107 mg/dL (65-115) 01/06/23 15:24 Calculated Osmolality 283 mOsm/kg (285-295) L 01/06/23 15:24 Calcium 8.5 mg/dL (8.5-10.5) 01/06/23 15:24 Total Bilirubin 0.3 mg/dL (0.15-1.2) 01/06/23 15:24 AST 30 U/L (0-40) 01/06/23 15:24 ALT 53 U/L (0-41) H 01/06/23 15:24 Alkaline Phosphatase 68 U/L (40-130) 01/06/23 15:24 Troponin T Gen 5 ng/L 6 ng/L (0-15) 01/06/23 15:24 Total Protein 6.9 g/dL (6.6-8.7) 01/06/23 15:24 Albumin 4.2 g/dL (3.5-5.2) 01/06/23 15:24 Globulin 2.7 g/dL (1.3-4.6) 01/06/23 15:24 Discharge Plan Discharge Patient Disposition: Home Clinical Impression: Chest pain Qualifiers: Chest pain type: unspecified Qualified Code(s): R07.9 - Chest pain, unspecified Condition: Stable Prescriptions: No Action eszopiclone [Lunesta] 2 mg tablet 2 mg PO BEDTIME Qty: 7 1RF Rx Instructions: pt states not started as of 01/06/23 Flonase Allergy Relief 50 mcg/actuation [place],Suspension 2 spray INTRANASAL DAILY PRN (Reason: Allergy Symptoms) fluoxetine 20 mg capsule 20 mg PO QAM Invega 6 mg tablet extended release 24 hr 6 mg PO DAILY@16 lisinopril 20 mg tablet 20 mg PO BID hydrochlorothiazide 25 mg tablet 25 mg PO DAILY Discharge Orders: Discharge ED (Routine); Ordered 01/06/23 Ordered By: Ashlyn Reyes Referrals: Drake Hernandez DO [Primary Care Provider] - Coding Level of Care Code ED 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 Manager for Chg [employer]wd Documented by User: Americo Sheikh DO 01/07/23 10:54 HPI - Chest Pain General: Chief Complaint: Chest Pain Stated Complaint: cp PFSH ED PFSH: Medical History Chronic post-traumatic stress disorder Clinical diagnosis of COVID-19 Depression, major, recurrent, severe with psychosis History of attention deficit hyperactivity disorder (ADHD) History of substance use disorder last use of alcohol reported as Jul 2021 last use of opiates and methamphetamines reported 2018 last use of marijuana Oct 2022 HTN (hypertension) Idiopathic mild intellectual disability Schizoaffective disorder, depressive type Surgical History No pertinent past surgical history S/P knee surgery Family History Other Diabetes Family history of premature coronary artery disease Psychiatric illness Social History Smoking and tobacco status: current every day smoker (vapes/previously cig smoker) e-cigarettes E-Cigarette Details: with nicotine E-cig/vape details: takes 2 weeks to go through a pod Quit status (tobacco): considering quitting Second hand smoke exposure: Yes Alcohol intake: former Former alcohol use details: or 2020 Adopted: No Caregiver/support person: No Lives independently: Yes Household members: other Details: Sober living house Housing: House Marital status: Legally Number of children: 2 Number of grandchildren: 0 Highest education level completed: Some College, No Degree service: No Current occupational status: employed Current occupation: [employer] 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) Pets and animals: Yes Pets & animals: cat(s) History of recent travel: No Leisure activites: music Sexually active: No Current gender identity: Male Stephany/Christian: Cheondoism Special stephany needs: No Agree to transfusion: Yes Financial difficulty paying for basics: Hard Physical Exam Neuro: ANALI COMA SCALE: document GCS findings Anali coma scale total score: 15 Course Vital Signs: Vital signs: Vital Signs Temperature 98.8 F 01/06/23 12:27 Pulse Rate 90 01/06/23 16:47 Respiratory Rate 27 H 01/06/23 16:47 Blood Pressure 134/78 01/06/23 16:47 Pulse Oximetry 98 01/06/23 16:47 Oxygen Delivery Me thod 01/06/23 16:47 MDM - Chest Pain Medical Decision Making Patient is a 37-year-old male with a longstanding history of chest pains. He has been seen in our emergency department multiple times for chest pains. Chest pain today started several several hours ago. Initial EKG showing no ischemic changes. This was repeated several hours later with no changes. This was compared to EKGs previous visits and no changes are noted. CXR is normal. Patient's troponin is normal. Patient has appointment with cardiology scheduled for 01/12. Return to ED precautions given. Chart reviewed and patient discussed with midlevel. Agree with assessment and plan. Lab Data 01/06/23 15:24 01/06/23 15:24 Radiology Impressions Chest X-Ray 01/06/23 14:47 IMPRESSION: No acute findings. Laboratory Results WBC 7.1 10^3/uL (4.0-10.0) 01/06/23 15:24 RBC 4.51 10^6/uL (4.1-5.3) 01/06/23 15:24 Hgb 13.2 g/dL (11.7-16.6) 01/06/23 15:24 Hct 39.6 % (42.0-52.0) L 01/06/23 15:24 MCV 87.8 fl (80-94) 01/06/23 15:24 MCH 29.3 pg (28.0-34.0) 01/06/23 15:24 MCHC 33.3 g/dL (30.0-36.0) 01/06/23 15:24 RDW 12.6 % (12.1-15.1) 01/06/23 15:24 Plt Count 205 10^3/cmm (130-400) 01/06/23 15:24 MPV 9.2 fL (7.4-10.4) 01/06/23 15:24 Neut % (Auto) 57.2 % 01/06/23 15:24 Lymph % (Auto) 33.3 % 01/06/23 15:24 [place] % (Auto) 6.4 % 01/06/23 15: Eos % (Auto) 2.2 % 01/06/23: Baso % (Auto) 0.6 % 01/06/23: Neut # (Auto) 4.08 10^3/uL (1.8-7.7) 01/06/23 15:24 Lymph # (Auto) 2.4 10^3/uL (0.8-4.8) 01/06/23 15:24 [place] # (Auto) 0.5 10^3/uL (0.2-0.9) 01/06/23 15:24 Eos # (Auto) 0.2 10^3/uL (0.0-0.8) 01/06/23 15:24 Baso # (Auto) 0.0 10^3/uL (0.0-0.1) 01/06/23 15: Nucleated RBC % (auto) 0 % 01/06/23: Nucleated RBCs # 0.0 /100WBC 01/06/23 15:24 Sodium 136 mmol/L (136-145) 01/06/23 15:24 Potassium 3.7 mmol/L (3.5-5.1) 01/06/23 15:24 Chloride 102 mmol/L (98-107) 01/06/23 15:24 Carbon Dioxide 21 mmol/L (22-29) L 01/06/23 15:24 Anion Gap 16.7 (5-19) 01/06/23 15:24 BUN 13 mg/dL (6-20) 01/06/23 15:24 Creatinine 0.9 mg/dL (0.7-1.2) 01/06/23 15:24 GFR Calculation 94.4 mL/min (90-130) 01/06/23 15:24 Glucose 107 mg/dL (65-115) 01/06/23 15:24 Calculated Osmolality 283 mOsm/kg (285-295) L 01/06/23 15:24 Calcium 8.5 mg/dL (8.5-10.5) 01/06/23 15:24 Total Bilirubin 0.3 mg/dL (0.15-1.2) 01/06/23 15:24 AST 30 U/L (0-40) 01/06/23 15:24 ALT 53 U/L (0-41) H 01/06/23 15:24 Alkaline Phosphatase 68 U/L (40-130) 01/06/23 15:24 Troponin T Gen 5 ng/L 6 ng/L (0-15) 01/06/23 15:24 Total Protein 6.9 g/dL (6.6-8.7) 01/06/23 15:24 Albumin 4.2 g/dL (3.5-5.2) 01/06/23 15:24 Globulin 2.7 g/dL (1.3-4.6) 01/06/23 15:24 Discharge Plan Discharge Patient Disposition: Home Clinical Impression: Chest pain Qualifiers: Chest pain type: unspecified Qualified Code(s): R07.9 - Chest pain, unspecified Condition: Stable Prescriptions: No Action eszopiclone [Lunesta] 2 mg tablet 2 mg PO BEDTIME Qty: 7 1RF Rx Instructions: pt states not started as of 01/06/23 Flonase Allergy Relief 50 mcg/actuation [place],Suspension 2 spray INTRANASAL DAILY PRN (Reason: Allergy Symptoms) fluoxetine 20 mg capsule 20 mg PO QAM Invega 6 mg tablet extended release 24 hr 6 mg PO DAILY@16 lisinopril 20 mg tablet 20 mg PO BID hydrochlorothiazide 25 mg tablet 25 mg PO DAILY Discharge Orders: Discharge ED (Routine); Ordered 01/06/23 Ordered By: Ashlyn Reyes Referrals: Drake Hernandez DO [Primary Care Provider] - Coding Level of Care Code ED 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 Manager for g [employer]
--- NOTE | 2023-01-06 14:47 | XRR_ITS ---
PROCEDURE INFORMATION: Exam: XR Chest Exam date and time: 01/06/2023 3:06 PM Age: 37 years old Clinical indication: Angina pectoris; Patient HX: Chest pain, dizzy, headache, lightheaded, left side pain TECHNIQUE: Imaging protocol: Radiologic exam of the chest. Views: 1 view. COMPARISON: CR XR chest 1V portable [id number] 12/21/2022 11:16 AM FINDINGS: Lungs: Unremarkable. No consolidation. Pleural spaces: Unremarkable. No pleural effusion. No pneumothorax. Heart/Mediastinum: Unremarkable. No cardiomegaly. Bones/joints: Unremarkable. XR/XR chest 1V portable [id number] IMPRESSION: No acute findings.
[2023-01-06 15:01] VITALS: BP 164/110; PULSE 103; RESP 18; O2SAT 99
[2023-01-06 15:39] LABS: Basophils % 0.6 %; Eosinophils # 0.2 10^3/uL (0.0-0.8); Eosinophils % 2.2 %; Hematocrit 39.6 % (42.0-52.0); Hemoglobin 13.2 g/dL (11.7-16.6); Lymphocytes # 2.4 10^3/uL (0.8-4.8); Lymphocytes % 33.3 %; Mean Corpuscular HGB Conc 33.3 g/dL (30.0-36.0); Mean Corpuscular Hemoglobin 29.3 pg (28.0-34.0); Mean Corpuscular Volume 87.8 fl (80-94); Mean Platelet Volume 9.2 fL (7.4-10.4); Monocytes # 0.5 10^3/uL (0.2-0.9); Monocytes % 6.4 %; Neutrophils # 4.08 10^3/uL (1.8-7.7); Neutrophils % 57.2 %; Nucleated Red Blood Cells % 0 %; Platelet Count 205 10^3/cmm (130-400); Red Blood Count 4.51 10^6/uL (4.1-5.3); Red Cell Distribution Width 12.6 % (12.1-15.1); White Blood Count 7.1 10^3/uL (4.0-10.0)
--- NOTE | 2023-01-06 15:54 | ECG_ITS ---
[facility] Test Date: 2023-01-06 Pat Name: Wicho Lugo Department: Room: Gender: Male Special Warfare Operator: : 1985 Requested By: Ashlyn Reyes Order Number: [id number] Sil MD: Angelia Olea M.D. Measurements Intervals [place] Rate: 93 P: 69 [place]: 186 QRS: 18 QRSD: 109 T: 35 QT: 370 QTc: 461 Interpretive Statements SINUS RHYTHM Compared to ECG 01/06/2023 12:39:29 Sinus tachycardia no longer present Intraventricular conduction delay no longer present Electronically Signed On 01-07-2023 0:19:45 CHEMISTRY ASSOCIATE by Angelia Olea M.D. [id number]
[2023-01-06 16:03] LABS: Alanine Aminotransferase 53 U/L (0-41); Albumin Level 4.2 g/dL (3.5-5.2); Alkaline Phosphatase 68 U/L (40-130); Anion Gap 16.7 (5-19); Aspartate Amino Transferase 30 U/L (0-40); Blood Urea Nitrogen 13 mg/dL (6-20); Calcium 8.5 mg/dL (8.5-10.5); Carbon Dioxide 21 mmol/L (22-29); Chloride 102 mmol/L (98-107); Globulin 2.7 g/dL (1.3-4.6); Glomerular Filtration Rate 94.4 mL/min (90-130); Glucose 107 mg/dL (65-115); Osmolality Calculated 283 mOsm/kg (285-295); Potassium 3.7 mmol/L (3.5-5.1); Sodium 136 mmol/L (136-145); Total Bilirubin 0.3 mg/dL (0.15-1.2); Total Protein 6.9 g/dL (6.6-8.7)
[2023-01-06 16:32] LABS: Troponin T (5th) Once 6 ng/L (0-15)
--- NOTE | 2023-01-06 16:46 | PC.NURSE ---
RR EVEN UNLABORED, NAD NOTED.
[2023-01-06 16:47] VITALS: BP 134/78; PULSE 90; RESP 27; O2SAT 98
--- NOTE | 2023-01-07 13:09 | DCPLANNER ---
catering sales manager had message to schedule a follow up appointment for patient with cardiology. catering sales manager sent patients information to the front office staff at [facility]. Patient has a follow up appointment scheduled for 01.12.23 at [facility] already scheduled. catering sales manager did send information to [facility] for review.
== END 2023-01-06 17:17 | disposition home or self-care (01) ==
PROVIDERS: Emergency Provider Physician Assistant; PCP Family Medicine
DX: R07.9 Chest pain, unspecified (principal)
CPT/HCPCS: 36415; 71045; 80053; 84484; 85025; 93005; 99285

== ENCOUNTER 2023-02-10 11:28 | Outpatient (CLI) | payer MEDICAID, SELFPAY ==
[2023-01-05 17:00] VITALS: BMI 43.8
--- NOTE | 2023-02-10 | ECG_ITS ---
[facility] Test Date: 2023-02-10 Pat Name: Wicho Lugo Department: Room: Gender: Male Machine Coremaker: : 1985 Requested By: Arpit Decker Order Number: [id number] Sil MD: Angelia Olea M.D. Interpretive Statements NAME OF STUDY: TREADMILL STRESS TEST INDICATION: Chest Pain PATIENT DID NOT REACH THR, MAXIMAL EFFORT ACHIEVED PROCEDURE: At the baseline, the patient's blood pressure was with a heart rate of. The baseline electrocardiogram showed sinus tachycardia with a rate of [address] Ts. Poor R wave progression. The patient exercised for 4 minutes and 6 seconds on a standard Emiliano protocol. Patient attained a maximum heart rate of 147 beats per minute 80% of the maximum predicted heart rate) with a blood pressure at the peak exercise of 161/93 mm Hg. The EKG at the peak exercise revealed no significant changes.. Patient did not have any chest pain or any significant cardiac arrhythmias with the exercise During the recovery phase, there were no new changes. Blood pressure at the end of the recovery phase was 161/93 mm Hg with a heart rate of 102 per minute. CONCLUSION: 1. Normal EKG response to treadmill exercise 2. No exercise-induced chest pain or cardiac arrhythmia 3. Impaired exercise tolerance, attained a maximum of 7.0 METs Electronically Signed On 02-12-2023 13:16:43 CDT by Angelia Olea M.D. [id number]
[2023-02-10 12:10] VITALS: BP 163/91; PULSE 102; BMI 44.2
[2023-02-23 14:59] VITALS: BP 85/66; PULSE 92; RESP 18; TEMP 36.4
[2023-02-23 15:45] VITALS: BP 168/131
[2023-02-23] MEDS: hydroCHLOROthiazide 25 mg Tablet PO (16:38)
[2023-02-23] MEDS: lisinopril 20 mg Tablet PO (16:38)
== END 2023-02-10 11:29 | disposition home or self-care (01) ==
LOC: CDL 11:31
PROVIDERS: PCP Family Medicine; Visit Provider Internal Medicine Cardiovascular Disease
DX: R07.9 Chest pain, unspecified (principal)
CPT/HCPCS: 93017

== ENCOUNTER 2023-02-10 20:34 | Emergency (ER) | payer MEDICAID, SELFPAY ==
[2023-01-05 17:00] VITALS: BMI 43.8
[2023-02-10] VITALS (7 sets, daily range): BP systolic 156–193; BP diastolic 102–124; PULSE 96–108; RESP 20–27; TEMP 36.4; O2SAT 93–97; BMI 43.7
--- NOTE | 2023-02-10 20:47 | ECG_ITS ---
[facility] Test Date: 2023-02-10 Pat Name: Wicho Lugo Department: Room: Gender: Male Emission Specialist: : 1985 Requested By: Bethany Carl Order Number: [id number] Reading MD: MARY ANN GARCIA Measurements Intervals [place] Rate: 106 P: 29 NE: 132 QRS: 38 QRSD: 108 T: 43 QT: 343 QTc: 457 Interpretive Statements SINUS TACHYCARDIA ABNORMAL RHYTHM ECG Compared to ECG 01/06/2023 15:54:30 Sinus rhythm no longer present Electronically Signed On 02-13-2023 23:41:46 CDT by MARY ANN GARCIA [id number]
--- NOTE | 2023-02-10 20:58 | XRR_ITS ---
PROCEDURE INFORMATION: Exam: XR Chest Exam date and time: 02/10/2023 9:03 PM Age: 37 years old Clinical indication: Shortness of breath; Additional info: Dyspnea TECHNIQUE: Imaging protocol: Radiologic exam of the chest. Views: 1 view. COMPARISON: CR XR chest 1V portable [id number] 01/06/2023 3:06 PM FINDINGS: Lungs: Unremarkable. No consolidation. Pleural spaces: Unremarkable. No pleural effusion. No pneumothorax. Heart/Mediastinum: Unremarkable. No cardiomegaly. Bones/joints: Unremarkable. XR/XR chest 1V portable [id number] IMPRESSION: No acute findings.
--- NOTE | 2023-02-10 21:15 | W.ED.SOB ---
HPI - SOB/Dyspnea General: Chief Complaint: Shortness of Breath/Dyspnea Stated Complaint: sob,dizzy Time Seen by Provider: 02/10/23 20:52 History of Present Illness: HPI Narrative: Patient presents to the ER today with complaints of shortness of breath. He says he feels like he is unable to catch his breath. This started about 3 days ago getting worse. Patient states now he is getting dizzy from this. Patient also been having some nausea and feet swelling. Patient did have a stress test today, but she does not know the results. She denies any fevers chills cough cold sore throat symptoms MD elicited complaint: shortness of breath Onset (ago): day(s) (About 3 days ago) Severity: mild Exacerbating factors: nothing Relieving factors: nothing Associated symptoms: Reports dizziness and nausea; Deny abdominal pain, chest congestion, chest pain, extremity pain, fever(s), palpitations, polydipsia, polyuria or vomiting Treatment prior to arrival: none Review of Systems General: Reports: 10 or more systems reviewed and unremarkable except in HPI and below Const: Denies: fever(s) or chills Eyes: Denies: change in vision ENMT: Denies: throat pain or odynophagia Card: Denies: chest pain, palpitations, irregular heart rhythm or edema Resp: Reports: dyspnea; Denies: productive cough, non-productive cough, wheezing or chest congestion GI: Reports: nausea; Denies: abdominal pain, vomiting or diarrhea : Denies: flank pain, difficulty urinating or dysuria Musc: Denies: neck pain, back pain or extremity pain Skin/Breast: Denies: rash or pruritus Neuro: Reports: dizziness; Denies: headache(s), numbness in extremities or weakness in extremities Psych: Denies: anxiety or depression Endo: Denies: polyuria, polydipsia or tired all the time Kb/Lymph: Denies: easy bruising or easy bleeding All/Imm: Denies: urticaria or throat swelling [facility] ED PFSH: Medical History Chronic post-traumatic stress disorder Clinical diagnosis of COVID-19 Depression, major, recurrent, severe with psychosis History of attention deficit hyperactivity disorder (ADHD) History of substance use disorder last use of alcohol reported as Sept 2021 last use of opiates and methamphetamines reported 2017 last use of marijuana Oct 2022 HTN (hypertension) Idiopathic mild intellectual disability Schizoaffective disorder, depressive type Surgical History No pertinent past surgical history S/P knee surgery Family History Other Diabetes Family history of premature coronary artery disease Psychiatric illness Social History Smoking and tobacco status: current every day smoker (vapes/previously cig smoker) e-cigarettes E-Cigarette Details: with nicotine E-cig/vape details: takes 2 weeks to go through a pod Quit status (tobacco): considering quitting Second hand smoke exposure: Yes Alcohol intake: former Former alcohol use details: or 2020 Adopted: No Caregiver/support person: No Lives independently: Yes Household members: other Details: Sober living house Housing: House Marital status: Legally Number of children: 2 Number of grandchildren: 0 Highest education level completed: Some College, No Degree service: No Current occupational status: employed Current occupation: [employer] 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) Pets and animals: Yes Pets & animals: cat(s) Leisure activites: music Sexually active: No Current gender identity: Male Stephany/Gnosticism: Pentecostalism Special stephany needs: No Agree to transfusion: Yes Financial difficulty paying for basics: Hard Physical Exam Const: COMMON NORMALS: no acute distress, patient oriented x3, no limitations, healthy appearing, alert and well nourished NUTRITIONAL APPEARANCE: obese HENMT: COMMON NORMALS: normocephalic, atraumatic, hearing grossly normal bilaterally and Normal nasal mucous membranes and turbinates present HEAD & SCALP: normocephalic and atraumatic NOSE: Normal nasal mucous membranes and turbinates present Neck/C-Spine: COMMON NORMALS: full ROM, no lymphadenopathy, supple, no JVD and Thyroid normal THYROID: Thyroid normal Chest: COMMONS NORMALS: normal inspection of the chest and normal palpation of entire chest wall Resp: COMMON NORMALS: normal respiratory effort, No retractions, No use of accessory muscles and clear to auscultation bilaterally AUSCULTATION: clear to auscultation bilaterally Cardio: COMMON NORMALS: no JVD, regular rhythm, S1 normal heart sound present, S2 normal heart sound present and No gallops present (Cardio) RATE: tachycardic RHYTHM: regular rhythm HEART SOUNDS: S1 normal heart sound present and S2 normal heart sound present GI: COMMON NORMALS: Normal to inspection, nondistended, normoactive bowel sounds present, Soft to palpation, non-tender, No hepatosplenomegaly present and no masses PALPATION: Yes Soft to palpation and Yes No hepatosplenomegaly present Neuro: COMMON NORMALS: patient oriented x3, CN's II-XII intact bilaterally, no focal motor deficits and no sensory deficits noted SENSORIUM/ORIENTATION: Yes alert Psych: COMMON NORMALS: mental status grossly normal, cooperative, normal affect and speech normal SPEECH: Yes normal speech Course Vital Signs: Vital signs: Vital Signs Temperature 97.5 F L 02/10/23 20:41 Pulse Rate 103 H 02/10/23 23:01 Respiratory Rate 24 H 02/10/23 23:01 Blood Pressure 160/103 02/10/23 23:01 Pulse Oximetry 93 02/10/23 23:01 Oxygen Delivery Me thod 02/10/23 22:42 MDM - SOB/Dyspnea Medical Decision Making Patient presents to the ER today with complaints of being short of breath and unable to catch his breath. Patient states this is been going on for several days. Patient was able to perform a full complete stress test today. Upon history and physical exam labs EKGs and imaging was obtained. All of this was benign. Patient was noted to be sleeping in the exam bed during his stay in the ER with no complications. Patient was given an albuterol nebulizer treatment to see if that improve his breathing. Patient will be discharged home with an inhaler to use as needed. Patient should follow back up with his primary care physician in approximately 1 week. Patient should talk to his primary care physician about inhaler if it benefits him and his current blood pressure medicine as it appears to be less than desirable from his blood pressure in ER. Differential Diagnosis Unlikely acute exacerbation of chronic obstructive airways disease, congestive heart failure, community acquired pneumonia, asthma with exacerbation or pulmonary embolism Lab Data 02/10/23 21:15 02/10/23 21:15 Labs/Radiology: Radiology Impressions Chest X-Ray 02/10/23 20:58 IMPRESSION: No acute findings. Laboratory Results WBC 8.0 10^3/uL (4.0-10.0) 02/10/23 21:15 RBC 4.46 10^6/uL (4.1-5.3) 02/10/23 21:15 Hgb 13.3 g/dL (11.7-16.6) 02/10/23 21:15 Hct 38.5 % (42.0-52.0) L 02/10/23 21:15 MCV 86.3 fl (80-94) 02/10/23 21:15 MCH 29.8 pg (28.0-34.0) 02/10/23 21:15 MCHC 34.5 g/dL (30.0-36.0) 02/10/23 21:15 RDW 12.5 % (12.1-15.1) 02/10/23:15 Plt Count 204 10^3/cmm (130-400) 02/10/23 21:15 MPV 8.9 fL (7.4-10.4) 02/10/23 21:15 Neut % (Auto) 52.3 % 02/10/23 21:15 Lymph % (Auto) 36.5 % 02/10/23 21:15 [place] % (Auto) 7.3 % 02/10/23 21:15 Eos % (Auto) 2.9 % 02/10/23 21:15 Baso % (Auto) 0.5 % 02/10/23 21:15 Neut # (Auto) 4.18 10^3/uL (1.8-7.7) 02/10/23 21:15 Lymph # (Auto) 2.9 10^3/uL (0.8-4.8) 02/10/23 21:15 [place] # (Auto) 0.6 10^3/uL (0.2-0.9) 02/10/23 21:15 Eos # (Auto) 0.2 10^3/uL (0.0-0.8) 02/10/23 21:15 Baso # (Auto) 0.0 10^3/uL (0.0-0.1) 02/10/23 21:15 Nucleated RBC % (auto) 0 % 02/10/23:15 Nucleated RBCs # 0.0 /100WBC 02/10/23 21:15 D-Dimer 0.60 ug/mIFEU (0-0.59) H 02/10/23 21:15 Sodium 138 mmol/L (136-145) 02/10/23 21:15 Potassium 3.8 mmol/L (3.5-5.1) 02/10/23 21:15 Chloride 104 mmol/L (98-107) 02/10/23 21:15 Carbon Dioxide 20 mmol/L (22-29) L 02/10/23 21:15 Anion Gap 17.8 (5-19) 02/10/23 21:15 BUN 16 mg/dL (6-20) 02/10/23 21:15 Creatinine 0.8 mg/dL (0.7-1.2) 02/10/23 21:15 GFR Calculation 108.2 mL/min (90-130) 02/10/23 21:15 Glucose 180 mg/dL (65-115) H 02/10/23 21:15 Calculated Osmolality 292 mOsm/kg (285-295) 02/10/23 21:15 Calcium 8.7 mg/dL (8.5-10.5) 02/10/23 21:15 Total Bilirubin 0.2 mg/dL (0.15-1.2) 02/10/23 21:15 AST 31 U/L (0-40) 02/10/23 21:15 ALT 48 U/L (0-41) H 02/10/23 21:15 Alkaline Phosphatase 65 U/L (40-130) 02/10/23 21:15 Troponin T Baseline 6 ng/L (0-15) 02/10/23 21:15 Troponin T 120 Minute 10.65 ng/L (0-15) 02/10/23 22:55 Delta Troponin T 4.65 ABS# (0-10) 02/10/23 22:55 NT-Pro-B Natriuret Pep 71 pg/mL (0-125) 02/10/23 21:15 Total Protein 6.9 g/dL (6.6-8.7) 02/10/23 21:15 Albumin 4.0 g/dL (3.5-5.2) 02/10/23 21:15 Globulin 2.9 g/dL (1.3-4.6) 02/10/23 21:15 Urine Color Yellow (Yellow) 02/10/23 21:25 Urine Appearance Clear (CLEAR) 02/10/23 21:25 Urine pH 5 (5-7) 02/10/23 21:25 Ur Specific [place] 1.025 (1.005-1.030) 02/10/23 21:25 Urine Protein Neg (Negative) 02/10/23 21:25 Urine Glucose (UA) Norm (Normal) 02/10/23 21:25 Urine Ketones 1+ (Negative) H 02/10/23 21:25 Urine Blood Neg (Negative) 02/10/23 21:25 Urine Nitrate Negative (Negative) 02/10/23 21:25 Urine Bilirubin Neg (Negative) 02/10/23 21:25 Urine Urobilinogen Norm mg/dL (Negative) 02/10/23 21:25 Ur Leukocyte Esterase Negative (Negative) 02/10/23 21:25 Urine Opiates Screen Negative ng/mL (Negative) 02/10/23 21:25 Ur Barbiturates Screen Negative ng/mL (Negative) 02/10/23 21:25 Ur Phencyclidine Scrn Negative ng/mL (Negative) 02/10/23 21:25 Ur Amphetamines Screen Negative ng/mL (Negative) 02/10/23 21:25 U Benzodiazepines Scrn Negative ng/mL (Negative) 02/10/23 21:25 Urine Cocaine Screen Negative ng/mL (Negative) 02/10/23 21:25 U Marijuana (THC) Screen Negative ng/mL (Negative) 02/10/23 21:25 EKG Data EKG 1: I personally reviewed and interpreted this EKG as follows: EKG Interpretation Date: 02/10/23 EKG interpretation time: 20:47 Prior EKG tracings: available for review Interpretation: EKG showed sinus tachycardia with a ventricular rate of 106 bpm, CA interval 132, QRS duration 108, QTc of 405, no ST-T wave changes Discharge Plan Discharge Patient Disposition: Home Clinical Impression: Shortness of breath Condition: Stable Prescriptions: New albuterol sulfate 90 mcg/actuation HFA aerosol inhaler 2 inh inhalation Q8H PRN (Reason: shortness of breath or wheezing) Qty: 8.5 0RF No Action paliperidone [Invega] 3 mg tablet extended release 24 hr 3 mg PO QAM Qty: 15 1RF Rx Instructions: Take one tablet every morning Flonase Allergy Relief 50 mcg/actuation [place],Suspension 2 spray INTRANASAL DAILY PRN (Reason: Allergy Symptoms) Invega 6 mg tablet extended release 24 hr 6 mg PO DAILY@16 lisinopril 20 mg tablet 20 mg PO BID hydrochlorothiazide 25 mg tablet 25 mg PO DAILY Discharge Orders: Discharge ED (Routine); Ordered 02/10/23 Ordered By: Len Teixeira Referrals: Drake Hernandez DO [Primary Care Provider] - 1 week Discharge Activity: Resume usual activity Patient Instructions: How to Use a Metered-Dose Inhaler (DC), Shortness of Breath (ED) Coding Level of Care Code ED Assessment Specialist for Aby Dixon
[2023-02-10 21:26] LABS: Basophils % 0.5 %; Eosinophils # 0.2 10^3/uL (0.0-0.8); Eosinophils % 2.9 %; Hematocrit 38.5 % (42.0-52.0); Hemoglobin 13.3 g/dL (11.7-16.6); Lymphocytes # 2.9 10^3/uL (0.8-4.8); Lymphocytes % 36.5 %; Mean Corpuscular HGB Conc 34.5 g/dL (30.0-36.0); Mean Corpuscular Hemoglobin 29.8 pg (28.0-34.0); Mean Corpuscular Volume 86.3 fl (80-94); Mean Platelet Volume 8.9 fL (7.4-10.4); Monocytes # 0.6 10^3/uL (0.2-0.9); Monocytes % 7.3 %; Neutrophils # 4.18 10^3/uL (1.8-7.7); Neutrophils % 52.3 %; Nucleated Red Blood Cells % 0 %; Platelet Count 204 10^3/cmm (130-400); Red Blood Count 4.46 10^6/uL (4.1-5.3); Red Cell Distribution Width 12.5 % (12.1-15.1)
[2023-02-10] MEDS: cloNIDine 0.1 mg Tablet 0.2 MG PO (21:35)
[2023-02-10 21:36] LABS: Add Urine Microscopic? NO; Charge for UA Resulting for Rev
[2023-02-10 21:47] LABS: Amphetamines Screen Urine Negative (Negative); Barbiturates Screen Urine Negative (Negative); Benzodiazepines Screen Urine Negative (Negative); Cocaine Screen Urine Negative (Negative); Opiate Screen Urine Negative (Negative); PCP Screen Urine Negative (Negative); THC Screen Urine Negative (Negative)
[2023-02-10 21:50] LABS: Troponin(5th) Baseline 6 ng/L (0-15)
[2023-02-10 21:51] LABS: Bilirubin Urine Neg (Negative); Blood Urine Neg (Negative); Glucose Urine UA Norm (Normal); Ketones Urine 1+ (Negative); Leukocyte Esterase Urine Negative (Negative); Nitrate Urine Negative (Negative); Protein Urine Neg (Negative); Specific Gravity, Urine 1.025 (1.005-1.030); Urine Appearance Clear (CLEAR); Urine Color Yellow (Yellow); Urobilinogen Urine Norm (Negative); pH Urine 5 (5-7)
[2023-02-10 21:54] LABS: Alanine Aminotransferase 48 U/L (0-41); Alkaline Phosphatase 65 U/L (40-130); Anion Gap 17.8 (5-19); Aspartate Amino Transferase 31 U/L (0-40); Blood Urea Nitrogen 16 mg/dL (6-20); Calcium 8.7 mg/dL (8.5-10.5); Carbon Dioxide 20 mmol/L (22-29); Chloride 104 mmol/L (98-107); Globulin 2.9 g/dL (1.3-4.6); Glomerular Filtration Rate 108.2 mL/min (90-130); Glucose 180 mg/dL (65-115); NT Pro B Type Natriuretic Pept 71 pg/mL (0-125); Osmolality Calculated 292 mOsm/kg (285-295); Potassium 3.8 mmol/L (3.5-5.1); Sodium 138 mmol/L (136-145); Total Bilirubin 0.2 mg/dL (0.15-1.2); Total Protein 6.9 g/dL (6.6-8.7)
[2023-02-10] MEDS: albuterol 2.5 mg/3 mL Neb INHALATION (22:39)
[2023-02-10 23:22] LABS: Troponin 5 2HR 10.65 ng/L (0-15)
[2023-02-10 23:35] LABS: Troponin 5 2HR Delta 4.65 ABS# (0-10)
== END 2023-02-10 23:04 | disposition home or self-care (01) ==
PROVIDERS: Emergency Provider Emergency Medicine; PCP Family Medicine
DX: R06.02 Shortness of breath (principal); I10 Essential (primary) hypertension; F17.210 Nicotine dependence, cigarettes, uncomplicated; Z86.16 Personal history of COVID-19
CPT/HCPCS: 71045; 80053; 80306; 81003; 83880; 84484; 85025; 85378; 93005; 94640; 99285; J7613

== ENCOUNTER 2023-02-22 21:47 | Inpatient (IN) | payer MEDICAID, SELFPAY ==
[2023-02-22 21:55] VITALS: BP 186/134; PULSE 113; RESP 16; O2SAT 94
--- NOTE | 2023-02-22 22:13 | ED.C_ITS ---
HPI - Psych General: Chief Complaint: ER Hold Stated Complaint: SI Time Seen by Provider: 02/22/23 22:00 Source: patient Mode of arrival: ambulatory Limitations: no limitations History of Present Illness: 37-year-old male he states that he has been having suicidal thoughts he states he had increasing depression states he just no longer wants to live. He states he has a plan of slitting his wrist and felt like he may do it today. Denies any worsening improving factors. Associated symptoms: Reports depression and suicidal ideation Review of Systems Const: Denies: fever(s), chills, body aches or change in appetite Eyes: Denies: blurry vision or eye discomfort ENMT: Denies: throat pain or dental pain Card: Denies: chest pain Resp: Denies: dyspnea GI: Denies: abdominal pain, nausea, vomiting or diarrhea : Denies: dysuria Musc: Denies: neck pain or back pain Skin/Breast: Denies: rash Neuro: Denies: headache(s) Psych: Reports: depression and suicidal ideation Kb/Lymph: Denies: easy bruising All/Imm: Denies: urticaria PFSH ED PFSH: Medical History (Updated 02/23/23 @ 01:04 by Bethany Carl MD) Schizoaffective disorder Social History Smoking and tobacco status: former smoker Alcohol intake: former Physical Exam Const: COMMON NORMALS: no acute distress, patient oriented x3 and healthy appearing HENMT: COMMON NORMALS: normocephalic and atraumatic HEAD & SCALP: normoc ephalic and atraumatic Eye: COMMON NORMALS: Equal, round and reactive pupils present and EOMs intact bilaterally PUPIL: Yes Equal, round and reactive pupils present Neck/C-Spine: COMMON NORMALS: full ROM and supple Chest: COMMONS NORMALS: normal inspection of the chest and normal palpation of entire chest wall Resp: COMMON NORMALS: normal respiratory effort, No retractions, No use of accessory muscles and clear to auscultation bilaterally AUSCULTATION: clear to auscultation bilaterally Cardio: COMMON NORMALS: regular rate, regular rhythm and No murmurs present (Cardio) RATE: regular rate RHYTHM: regular rhythm GI: COMMON NORMALS: Normal to inspection, nondistended, normoactive bowel sounds present, Soft to palpation, non-tender and no masses PALPATION: Yes Soft to palpation Extremity: COMMON NORMALS: normal to inspection and full ROM Neuro: COMMON NORMALS: patient oriented x3, moves all extremities and no focal motor deficits Psych: COMMON NORMALS: mental status grossly normal and cooperative MOOD & AFFECT: Yes depressed mood THOUGHT CONTENT: Yes Suicidality present Skin: COMMON NORMALS: no rashes or lesions noted and no wounds GENERAL SKIN EXAM: no rashes or lesions noted Course Vital Signs: Vital signs: Vital Signs Pulse Rate 102 H 02/23/23 02:15 Respiratory Rate 16 02/23/23 02:15 Blood Pressure 142/90 02/23/23 02:15 Pulse Oximetry 96 02/23/23 02:15 Oxygen Delivery Me thod 02/23/23 02:15 MDM - Psych Medical Decision Making Patient presents here with suicidal ideations patient is placed under 96-hour hold he is medically cleared I spoke to Dr. Dexter and will admit at this rosalia e. Lab Data 02/22/23 22:21 02/22/23 22:21 Laboratory Results WBC 8.7 10^3/uL (4.0-10.0) 02/22/23 22:21 RBC 4.83 10^6/uL (4.1-5.3) 02/22/23 22:21 Hgb 14.2 g/dL (11.7-16.6) 02/22/23 22:21 Hct 41.0 % (42.0-52.0) L 02/22/23 22:21 MCV 84.9 fl (80-94) 02/22/23 22:21 MCH 29.4 pg (28.0-34.0) 02/22/23 22:21 MCHC 34.6 g/dL (30.0-36.0) 02/22/23 22:21 RDW 12.4 % (12.1-15.1) 02/22/23 22:21 Plt Count 237 10^3/cmm (130-400) 02/22/23 22:21 MPV 8.6 fL (7.4-10.4) 02/22/23 22:21 Neut % (Auto) 53.3 % 02/22/23 22:21 Lymph % (Auto) 36.5 % 02/22/23 22:21 [place] % (Auto) 6.6 % 02/22/23 22:21 Eos % (Auto) 2.6 % 02/22/23 22:21 Baso % (Auto) 0.5 % 02/22/23 22:21 Neut # (Auto) 4.65 10^3/uL (1.8-7.7) 02/22/23 22:21 Lymph # (Auto) 3.2 10^3/uL (0.8-4.8) 02/22/23 22:21 [place] # (Auto) 0.6 10^3/uL (0.2-0.9) 02/22/23 22:21 Eos # (Auto) 0.2 10^3/uL (0.0-0.8) 02/22/23 22:21 Baso # (Auto) 0.0 10^3/uL (0.0-0.1) 02/22/23 22:21 Nucleated RBC % (auto) 0 % 02/22/23 22:21 Nucleated RBCs # 0.0 /100WBC 02/22/23 22:21 Sodium 139 mmol/L (136-145) 02/22/23 22:21 Potassium 3.4 mmol/L (3.5-5.1) L 02/22/23 22:21 Chloride 106 mmol/L (98-107) 02/22/23 22:21 Carbon Dioxide 21 mmol/L (22-29) L 02/22/23 22:21 Anion Gap 15.4 (5-19) 02/22/23 22:21 BUN 10 mg/dL (6-20) 02/22/23 22:21 Creatinine 0.9 mg/dL (0.7-1.2) 02/22/23 22:21 GFR Calculation 94.4 mL/min (90-130) 02/22/23 22:21 Glucose 136 mg/dL (65-115) H 02/22/23 22:21 Calculated Osmolality 289 mOsm/kg (285-295) 02/22/23 22:21 Calcium 8.8 mg/dL (8.5-10.5) 02/22/23 22:21 Total Bilirubin 0.2 mg/dL (0.15-1.2) 02/22/23 22:21 AST 43 U/L (0-40) H 02/22/23 22:21 ALT 87 U/L (0-41) H 02/22/23 22:21 Alkaline Phosphatase 63 U/L (40-130) 02/22/23 22:21 Total Protein 7.2 g/dL (6.6-8.7) 02/22/23 22:21 Albumin 4.1 g/dL (3.5-5.2) 02/22/23 22:21 Globulin 3.1 g/dL (1.3-4.6) 02/22/23 22:21 Salicylates < 0.3 mg/dL (3-10) L 02/22/23 22:21 Urine Opiates Screen Negative ng/mL (Negative) 02/22/23 22:30 Acetaminophen < 5.0 ug/mL (10-30) L 02/22/23 22:21 Ur Barbiturates Screen Negative ng/mL (Negative) 02/22/23 22:30 Ur Phencyclidine Scrn Negative ng/mL (Negative) 02/22/23 22:30 Ur Amphetamines Screen Negative ng/mL (Negative) 02/22/23 22:30 U Benzodiazepines Scrn Negative ng/mL (Negative) 02/22/23 22:30 Urine Cocaine Screen Negative ng/mL (Negative) 02/22/23 22:30 U Marijuana (THC) Screen Negative ng/mL (Negative) 02/22/23 22:30 Ethyl Alcohol < 10 mg/dL (0-10) 02/22/23 22:21 SARS-CoV-2 Ag (Rapid) negative (Negative) 02/22/23 22:52 EKG Data EKG 1: I personally reviewed and interpreted this EKG as follows: EKG interpretation date: 02/22/23 EKG interpretation time: 22:13 Interpretation: sinus tach hr [address] or t wave abnormalities qrs 108 qtc 404 Discharge Plan Discharge Patient Disposition: Admitted As Inpatient Admit Provider: Nasir Dexter Clinical Impression: Suicidal ideation Condition: Stable Coding Level of Care Code ED Gear Milling Machine Set Up Operator for Aby Dixon
--- NOTE | 2023-02-22 22:13 | ECG_ITS ---
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 Measurements Intervals [place] Rate: 112 P: 32 [place]: 174 QRS: -12 QRSD: 108 T: 36 QT: 337 QTc: 462 Interpretive Statements SINUS TACHYCARDIA POSSIBLE ANTERIOR MYOCARDIAL INFARCTION , OF INDETERMINATE AGE [30 ms Q WAVE IN V3/V4, OR R < 0.2 mV IN V4] No previous ECG available for comparison Electronically Signed On 02-24-2023 0:21:41 CDT by Angelia Olea M.D. [id number]
[2023-02-22 22:29] LABS: Basophils % 0.5 %; Eosinophils # 0.2 10^3/uL (0.0-0.8); Eosinophils % 2.6 %; Hemoglobin 14.2 g/dL (11.7-16.6); Lymphocytes # 3.2 10^3/uL (0.8-4.8); Lymphocytes % 36.5 %; Mean Corpuscular HGB Conc 34.6 g/dL (30.0-36.0); Mean Corpuscular Hemoglobin 29.4 pg (28.0-34.0); Mean Corpuscular Volume 84.9 fl (80-94); Mean Platelet Volume 8.6 fL (7.4-10.4); Monocytes # 0.6 10^3/uL (0.2-0.9); Monocytes % 6.6 %; Neutrophils # 4.65 10^3/uL (1.8-7.7); Neutrophils % 53.3 %; Nucleated Red Blood Cells % 0 %; Platelet Count 237 10^3/cmm (130-400); Red Blood Count 4.83 10^6/uL (4.1-5.3); Red Cell Distribution Width 12.4 % (12.1-15.1); White Blood Count 8.7 10^3/uL (4.0-10.0)
[2023-02-22] MEDS: hyDRALAzine 20 mg/mL INJ 1 mL 10 MG IM (22:45)
[2023-02-22] MEDS: LORazepam 2 mg Tablet PO (22:45)
[2023-02-22 22:51] LABS: Alanine Aminotransferase 87 U/L (0-41); Albumin Level 4.1 g/dL (3.5-5.2); Alkaline Phosphatase 63 U/L (40-130); Anion Gap 15.4 (5-19); Aspartate Amino Transferase 43 U/L (0-40); Blood Urea Nitrogen 10 mg/dL (6-20); Calcium 8.8 mg/dL (8.5-10.5); Carbon Dioxide 21 mmol/L (22-29); Chloride 106 mmol/L (98-107); Globulin 3.1 g/dL (1.3-4.6); Glomerular Filtration Rate 94.4 mL/min (90-130); Glucose 136 mg/dL (65-115); Osmolality Calculated 289 mOsm/kg (285-295); Potassium 3.4 mmol/L (3.5-5.1); Sodium 139 mmol/L (136-145); Total Bilirubin 0.2 mg/dL (0.15-1.2); Total Protein 7.2 g/dL (6.6-8.7)
[2023-02-22 22:53] LABS: Acetaminophen < 5.0 ug/mL (10-30); Alcohol Level < 10 mg/dL (0-10); Salicylate < 0.3 mg/dL (3-10)
[2023-02-22 23:07] LABS: Amphetamines Screen Urine Negative (Negative); Barbiturates Screen Urine Negative (Negative); Benzodiazepines Screen Urine Negative (Negative); Cocaine Screen Urine Negative (Negative); Opiate Screen Urine Negative (Negative); PCP Screen Urine Negative (Negative); THC Screen Urine Negative (Negative)
[2023-02-22 23:14] LABS: SARS Covid-2 Antigen negative (Negative)
--- NOTE | 2023-02-22 23:45 | PC.NURSE ---
Pt served with copy of 96 Hour Hold rights by this nurse and security @ 0732. All questions answered.
[2023-02-23] VITALS (7 sets, daily range): BP systolic 131–183; BP diastolic 90–131; PULSE 93–102; RESP 16–18; TEMP 36.6; O2SAT 96–97
[2023-02-23] MEDS: metoclopramide 5 mg/mL SDV 2 mL 10 MG IM (01:18)
[2023-02-23] MEDS: diphenhydrAMINE 50 mg/mL SDV 1mL IM (01:19)
[2023-02-23] MEDS: metoprolol succinate ER (24 HR) 50 mg Tablet PO (02:13)
--- NOTE | 2023-02-23 08:34 | PC.PHAR ---
pt sts he takes the medications that where verified- called [facility] where pt sts he fills all his medications and have listed all last filled and day supply for each medication
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
[2023-02-23] MEDS: nicotine 21 mg Patch 1 PATCH TRANSDERMA (12:53)
[2023-02-23] MEDS: acetaminophen 325 mg Tablet 650 MG PO (17:37)
[2023-02-23] MEDS: nicotine 2 mg Gum BUCCAL ×2 (18:26→21:34)
[2023-02-23] MEDS: cloNIDine 0.1 mg Tablet PO (18:48)
--- NOTE | 2023-02-23 18:55 | PC.NURSE ---
Patient admitted to NPU at 1356, BP 88/56, asymptomatic. Patient states his BP is usually elevated. B/P rechecked 185/130, slight L frontal headache. Dr Dexter informed. home meds given Lisinipril 20mg and HCTZ 25mg given. 1728 BP rechecked 155/118. 1850 B/P 183/131, order for Clonidine 0.1mg PO.
[2023-02-23] MEDS: hyDROXYzine 25 mg Capsule 50 MG PO (21:00)
[2023-02-23] MEDS: trazodone 50 mg Tablet PO ×2 (21:00→21:35)
[2023-02-24] VITALS (9 sets, daily range): BP systolic 122–131; BP diastolic 70–85; PULSE 84–105; RESP 16–18; TEMP 36.3–36.4; O2SAT 95–99
[2023-02-24] MEDS: paliperidone ER 3 mg Tablet PO (06:56)
[2023-02-24] MEDS: albuterol 2.5 mg/3 mL Neb INHALATION ×4 (07:55→23:28)
[2023-02-24] MEDS: fluoxetine 20 mg Capsule PO (09:55)
[2023-02-24] MEDS: nicotine 2 mg Gum BUCCAL ×3 (11:50→19:31)
[2023-02-24] MEDS: paliperidone ER 6 mg Tablet PO (12:42)
--- NOTE | 2023-02-24 13:17 | W.PM.NPUPNS ---
Subjective NPU Subjective: Patient presented today reporting that he has been feeling more depressed and like his medications are not working. But he also identifies that he is in a less than amicable/happy situation. He reports that he lives with some renay out in the [facility] with no people to associate with. He recently lost his job and he has been trying to get a job and so there is no a lot of positive things going on in his life and he started having thoughts of suicide. We discussed the risk benefits and alternatives of increasing his Prozac to 40 mg p.o. every morning and he understood and agreed to proceed as is documented in this note. Mental Status Exam MSE Comments: This is an obese versus morbidly obese white male in hospital scrubs with adequate grooming and eye contact.? No abnormal movements except for mild psychomotor retardation.? Cooperative with exam in no acute distress.? Speech was more normal rate and volume.? Mood described as depressed, affect congruent.? Thought process organized.? Thought content: Patient endorsed suicidal ideation and denied homicidal ideation, there were no delusions reported or noted, he denied any auditory or visual hallucinations.? Attention and concentration were intact and memory appeared reliable but none were formally tested.? He is alert and oriented x3.? Insight and judgment appear limited and impulse control is limited. Vitals/I&O/Wt Last Vital Signs Temp 97.6 F 02/24/23 06:00 Pulse 98 02/24/23 11:40 Resp 18 02/24/23 11:31 BP 125/70 02/24/23 06:00 Pulse Ox 99 02/24/23 11:31 O2 Del Method 02/24/23 11:31 Weight last 48 hrs Weight 158.757 kg Data NPU 02/22/23 22:21 02/22/23 22:21 A&P Assessment and plan (1) Suicidal ideation: (2) Schizoaffective disorder: Plan This is a 37-year-old white male with a long history of trauma addiction and suicidal thoughts who presents with addiction in remission and recent adherence with meds reporting a need for a medication adjustment. 1.? Continue current medication. Increase Prozac to 40 mg p.o. every morning. 2.? Continue every 15 minute checks for safety. 3.? Encourage individual, group and milieu therapies. Attestations NPU Medical Necessity Statement*: Inpatient hospitalization is medically necessary and the clinically appropriate intervention at this time. We will monitor medications and make changes as indicated. Likely length of stay 2-4 days. Coding Level of Care Code Acute Code for g Fwd Diagnoses Suicidal ideation R45.851 Schizoaffective disorder F25.9
[2023-02-24] MEDS: trazodone 50 mg Tablet PO (21:18)
[2023-02-24] MEDS: hyDROXYzine 25 mg Capsule 50 MG PO (21:18)
[2023-02-24] MEDS: acetaminophen 325 mg Tablet 650 MG PO (21:18)
[2023-02-25 06:00] VITALS: RESP 15
--- NOTE | 2023-02-25 06:28 | PC.NURSE ---
at bedtime tylenol given for back pain, trazodone for sleep. pt received breathing treatment approximately 2300, has slept all night, no issues noted or reported.
[2023-02-25 07:14] VITALS: PULSE 78; RESP 16; O2SAT 97
[2023-02-25] MEDS: paliperidone ER 3 mg Tablet PO (09:03)
[2023-02-25] MEDS: fluoxetine 20 mg Capsule 40 MG PO (09:03)
[2023-02-25] MEDS: paliperidone ER 6 mg Tablet PO (11:35)
[2023-02-25] MEDS: nicotine 2 mg Gum BUCCAL ×4 (11:53→21:59)
[2023-02-25 14:00] VITALS: BP 131/86; PULSE 101; RESP 18; TEMP 36.6; O2SAT 97
--- NOTE | 2023-02-25 15:14 | W.PM.NPUPNS ---
Subjective NPU Subjective: Presented today reporting that he is doing fine. Much of the way he has in the past he identified his perceived level of readiness for discharge. Reporting he thought maybe he be ready in a couple of days. We discussed the concerns that he has and he identified no problems with the increase in the Prozac. We also discussed that given his situation we do not expect some huge epiphany or major changes in that that would come from therapeutic interventions and making some changes in his life that would support more positive feelings. Mental Status Exam MSE Comments: This is an obese versus morbidly obese white male in hospital scrubs with adequate grooming and eye contact.? No abnormal movements except for mild psychomotor retardation.? Cooperative with exam in no acute distress.? Speech was more normal rate and volume.? Mood described as depressed, but may be a little better, affect congruent.? Thought process organized.? Thought content: Patient endorsed suicidal ideation and denied homicidal ideation, there were no delusions reported or noted, he denied any auditory or visual hallucinations.? Attention and concentration were intact and memory appeared reliable but none were formally tested.? He is alert and oriented x3.? Insight and judgment appear limited and impulse control is limited. Vitals/I&O/Wt Last Vital Signs Temp 97.3 F L 02/24/23 14:00 Pulse 78 02/25/23 07:14 Resp 16 02/25/23 07:14 BP 131/85 02/24/23 22:00 Pulse Ox 97 02/25/23 07:14 O2 Del Method 02/25/23 07:14 Data NPU 02/22/23 22:21 02/22/23 22:21 A&P Assessment and plan (1) Suicidal ideation: (2) Schizoaffective disorder: Plan This is a 37-year-old white male with a long history of trauma addiction and suicidal thoughts who presents with addiction in remission and recent adherence with meds reporting a need for a medication adjustment. 1.? Continue current medication. Increased Prozac to 40 mg p.o. every morning. 2.? Continue every 15 minute checks for safety. 3.? Encourage individual, group and milieu therapies. 4. Attestations NPU Medical Necessity Statement*: Inpatient hospitalization is medically necessary and the clinically appropriate intervention at this time. We will monitor medications and make changes as indicated. Likely length of stay 1-3 days. Coding Level of Care Code Acute Code for Chg Fwd Diagnoses Suicidal ideation R45.851 Schizoaffective disorder F25.9
[2023-02-25] MEDS: acetaminophen 325 mg Tablet 650 MG PO (20:43)
[2023-02-25] MEDS: trazodone 50 mg Tablet PO (20:43)
[2023-02-25 21:26] VITALS: BP 142/98
[2023-02-25 22:00] VITALS: BP 148/111; PULSE 116; RESP 19; TEMP 36.4; O2SAT 97
[2023-02-25] MEDS: hyDROXYzine 25 mg Capsule 50 MG PO (23:56)
[2023-02-26 06:00] VITALS: BP 146/102; PULSE 83; RESP 18; TEMP 36.8; O2SAT 99
[2023-02-26] MEDS: paliperidone ER 3 mg Tablet PO (06:23)
[2023-02-26] MEDS: fluoxetine 20 mg Capsule 40 MG PO (08:24)
[2023-02-26] MEDS: nicotine 2 mg Gum BUCCAL ×2 (11:32→13:57)
[2023-02-26] MEDS: paliperidone ER 6 mg Tablet PO (11:32)
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
[2023-02-26 12:34] VITALS: BP 146/102; PULSE 83; RESP 18; TEMP 36.8; O2SAT 99
== END 2023-02-26 17:00 | disposition home or self-care (01) | DRG 885 ==
LOC: ER 02-23 01:04 → ER IP 02-23 02:36 → NP 02-23 17:05
PROVIDERS: Admitting Provider Psychiatry & Neurology Psychiatry; Emergency Provider Emergency Medicine; Visit Provider Psychiatry & Neurology Psychiatry
DX: F25.9 Schizoaffective disorder, unspecified (principal); R45.851 Suicidal ideations; F19.21 Other psychoactive substance dependence, in remission; Z87.891 Personal history of nicotine dependence
CPT/HCPCS: 80053; 80306; 80307; 85025; 87426; 93005; 94640; 96372; 97165; 99238; 99285; J0360; J1200; J2765; J7613

== ENCOUNTER 2023-04-25 23:52 | Emergency (ER) | payer MEDICAID, SELFPAY ==
[2023-01-05 17:00] VITALS: BMI 43.8
[2023-04-25 23:53] VITALS: BMI 43.7
[2023-04-25 23:56] VITALS: BP 163/121; PULSE 106; RESP 16; TEMP 36.4; O2SAT 98
--- NOTE | 2023-04-25 23:58 | XRR_ITS ---
PROCEDURE INFORMATION: Exam: XR Chest Exam date and time: 04/25/2023 11:11 PM Age: 37 years old Clinical indication: Shortness of breath TECHNIQUE: Imaging protocol: Radiologic exam of the chest. Views: 1 view. COMPARISON: CR (CHEST, ) 02/10/2023 9:03 PM FINDINGS: Lungs: Poor inspiratory effort with some crowding of pulmonary markings and possible accentuation of the apparent heart size. Pleural spaces: Unremarkable. No pleural effusion. No pneumothorax. Heart/Mediastinum: See Lungs finding. Bones/joints: Unremarkable. XR/XR chest 1V portable [id number] IMPRESSION: No acute findings.
--- NOTE | 2023-04-25 23:58 | ECG_ITS ---
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 Measurements Intervals [place] Rate: 103 P: 40 CT: 163 QRS: 10 QRSD: 108 T: 41 QT: 354 QTc: 465 Interpretive Statements SINUS TACHYCARDIA WITH OCCASIONAL VENTRICULAR PREMATURE COMPLEXES POSSIBLE ANTERIOR MYOCARDIAL INFARCTION , OF INDETERMINATE AGE [30 ms Q WAVE IN V3/V4, OR R < 0.2 mV IN V4] Compared to ECG 02/10/2023 20:47:04 Ventricular premature complex(es) now present Myocardial infarct finding now present Electronically Signed On 04-26-2023 23:29:20 CDT by Bharat Payton M.D. [email or web address]
--- NOTE | 2023-04-25 23:59 | W.ED.SOB ---
HPI - SOB/Dyspnea General: Chief Complaint: Shortness of Breath/Dyspnea Stated Complaint: SOB, HTN Time Seen by Provider: 04/25/23 23:57 History of Present Illness: HPI Narrative: 37-year-old male patient comes in today for being lightheaded and dizzy. EMS had noted that patient had elevated blood pressure. Patient states he had not taken his medication in the last 3 days. Patient has a history of mental health disorder, hypertension, and wheezing. Patient does routinely vape and smoke marijuana. Associated symptoms: Deny chest pain, extremity pain, fever(s), nausea or vomiting Review of Systems General: Reports: 10 or more systems reviewed and unremarkable except in HPI and below Const: Denies: fever(s) Card: Denies: chest pain Resp: Reports: dyspnea GI: Denies: nausea or vomiting : Denies: difficulty urinating Musc: Denies: extremity pain Skin/Breast: Denies: rash PFS ED PFSH: Medical History (Updated 04/26/23 @ 01:10 by CURT South) Cannabis dependence, episodic use Chronic post-traumatic stress disorder Clinical diagnosis of COVID-19 Depression, major, recurrent, severe with psychosis History of attention deficit hyperactivity disorder (ADHD) History of substance use disorder last use of alcohol reported as February 2023 last use of opiates and methamphetamines reported 2017 HTN (hypertension) Idiopathic mild intellectual disability Schizoaffective disorder, depressive type Surgical History (System 02/25/23 @ 16:33 by Ale Feliz) No pertinent past surgical history S/P knee surgery Family History Other Diabetes Family history of premature coronary artery disease Psychiatric illness Social History (System 02/25/23 @ 16:33 by Ale Feliz) Smoking and tobacco status: former smoker Quit status (tobacco): considering quitting Second hand smoke exposure: Yes Alcohol intake: former Former alcohol use details: or 2020 Substance/Drug Use: former Date of last use: 10/2018 Adopted: No Caregiver/support person: No Lives independently: Yes Household members: other Details: Sober living house Housing: House Marital status: Legally Number of children: 2 Number of grandchildren: 0 Highest education level completed: Some College, No Degree service: No Current occupational status: employed Current occupation: [employer] 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) Pets and animals: Yes Pets & animals: cat(s) Leisure activites: music Sexually active: No Do you think of yourself as: Straight/Heterosexual Current gender identity: Male Stephany/Zoroastrian: Denominational Special stephany needs: No Agree to transfusion: Yes Financial difficulty paying for basics: Hard Physical Exam Const: COMMON NORMALS: alert HENMT: COMMON NORMALS: normocephalic HEAD & SCALP: normocephalic Neck/C-Spine: COMMON NORMALS: full ROM Resp: COMMON NORMALS: normal respiratory effort and clear to auscultation bilaterally AUSCULTATION: clear to auscultation bilaterally Cardio: COMMON NORMALS: regular rhythm, S1 normal heart sound present and S2 normal heart sound present RATE: tachycardic RHYTHM: regular rhythm HEART SOUNDS: S1 normal heart sound present and S2 normal heart sound present GI: AUSCULTATION: Yes normoactive bowel sounds Back/Pelvis: COMMON NORMALS: thoracic and lumbar spine normal to inspection Extremity: COMMON NORMALS: normal to inspection Neuro: SENSORIUM/ORIENTATION: Yes alert Skin: COMMON NORMALS: turgor normal GENERAL SKIN EXAM: turgor normal Course Vital Signs: Vital signs: Vital Signs Temperature 97.6 F 04/25/23 23:56 Pulse Rate 109 H 04/26/23 01:32 Respiratory Rate 18 04/26/23 01:32 Blood Pressure 188/119 04/26/23 01:32 Pulse Oximetry 97 04/26/23 01:32 Oxygen Delivery Me thod Room Air 04/26/23 00:25 MDM - SOB/Dyspnea Medical Decision Making 37-year-old male patient comes in today for complaints of lightheadedness. Patient bent over to pick something up when he felt dizzy like he was going to pass out. Patient appears nontoxic. Patient does have a history of hypertension but has not taken his medication for the last 3 days. Lungs are clear to auscultation. No edema is noted in the extremities. Vital signs note some elevation in pulse and blood pressure. Differential diagnosis includes but not limited to CHF, ACS, uncontrolled hypertension, anxiety. CBC was unremarkable. CMP did note some mild decrease in potassium at 3.3. Troponin was 8. BNP was 70. Chest x-ray was unremarkable. No signs of CHF was noted. Patient's blood pressure was slightly elevated 160s to 180s systolic. Believe patient's dizziness is secondary to poor control of his blood pressure. Patient was given a dose of his medication lisinopril and hydrochlorothiazide. Patient reported that he had not taken his medicine for 3 days. Strongly encouraged patient to take his medicine as directed and to follow-up with his primary care for further instruction and evaluation. Patient reported understanding agreed to plan. Lab Data 04/26/23 00:00 04/26/23 00:00 Labs/Radiology: Radiology Impressions Chest X-Ray 04/25/23 23:58 IMPRESSION: No acute findings. Laboratory Results WBC 9.1 10^3/uL (4.0-10.0) 04/26/23 00:00 RBC 4.78 10^6/uL (4.1-5.3) 04/26/23 00:00 Hgb 13.9 g/dL (11.7-16.6) 04/26/23 00:00 Hct 41.2 % (42.0-52.0) L 04/26/23 00:00 MCV 86.2 fl (80-94) 04/26/23 00:00 MCH 29.1 pg (28.0-34.0) 04/26/23 00:00 MCHC 33.7 g/dL (30.0-36.0) 04/26/23 00:00 RDW 12.4 % (12.1-15.1) 04/26/23 00:00 Plt Count 231 10^3/cmm (130-400) 04/26/23 00:00 MPV 8.8 fL (7.4-10.4) 04/26/23 00:00 Neut % (Auto) 46.0 % 04/26/23 00:00 Lymph % (Auto) 39.0 % 04/26/23 00:00 [place] % (Auto) 7.5 % 04/26/23 00:00 Eos % (Auto) 6.4 % 04/26/23 00:00 Baso % (Auto) 0.8 % 04/26/23 00:00 Neut # (Auto) 4.18 10^3/uL (1.8-7.7) 04/26/23 00:00 Lymph # (Auto) 3.5 10^3/uL (0.8-4.8) 04/26/23 00:00 [place] # (Auto) 0.7 10^3/uL (0.2-0.9) 04/26/23 00:00 Eos # (Auto) 0.6 10^3/uL (0.0-0.8) 04/26/23 00:00 Baso # (Auto) 0.1 10^3/uL (0.0-0.1) 04/26/23 00:00 Nucleated RBC % (auto) 0 % 04/26/23 00:00 Nucleated RBCs # 0.0 /100WBC 04/26/23 00:00 Sodium 135 mmol/L (136-145) L 04/26/23 00:00 Potassium 3.3 mmol/L (3.5-5.1) L 04/26/23 00:00 Chloride 102 mmol/L (98-107) 04/26/23 00:00 Carbon Dioxide 22 mmol/L (22-29) 04/26/23 00:00 Anion Gap 14.3 (5-19) 04/26/23 00:00 BUN 11 mg/dL (6-20) 04/26/23 00:00 Creatinine 0.9 mg/dL (0.7-1.2) 04/26/23 00:00 GFR Calculation 94.4 mL/min (90-130) 04/26/23 00:00 Glucose 99 mg/dL (65-115) 04/26/23 00:00 Calculated Osmolality 279 mOsm/kg (285-295) L 04/26/23 00:00 Calcium 8.7 mg/dL (8.5-10.5) 04/26/23 00:00 Total Bilirubin 0.3 mg/dL (0.15-1.2) 04/26/23 00:00 AST 89 U/L (0-40) H 04/26/23 00:00 ALT 110 U/L (0-41) H 04/26/23 00:00 Alkaline Phosphatase 72 U/L (40-130) 04/26/23 00:00 Troponin T Gen 5 ng/L 8 ng/L (0-15) 04/26/23 00:00 NT-Pro-B Natriuret Pep 36 pg/mL (0-125) 04/26/23 00:00 Total Protein 7.5 g/dL (6.6-8.7) 04/26/23 00:00 Albumin 4.1 g/dL (3.5-5.2) 04/26/23 00:00 Globulin 3.4 g/dL (1.3-4.6) 04/26/23 00:00 EKG Data EKG 1: EKG Interpretation Date: 04/26/23 EKG interpretation time: 00:11 Prior EKG tracings: not available for review Interpretation: EKG shows a regular rate at [address] elevation is noted. No ectopy is noted. No prior exam was available for comparison. Discharge Plan Discharge Patient Disposition: Home Clinical Impression: HTN (hypertension) Qualifiers: Hypertension type: unspecified Qualified Code(s): I10 - Essential (primary) hypertension Condition: Stable Prescriptions: Continued Ventolin HFA 90 mcg/actuation Hfa Aerosol Inhaler 2 puff INHALATION Q6H PRN (Reason: Shortness Of Breath Or Wheezing) Qty: 18 0RF No Action Invega Sustenna 234 mg/1.5 mL syringe 234 mg IM Q30D Qty: 1.5 0RF Rx Instructions: Loading dose, one time on 04/02/23 Invega Sustenna 156 mg/mL syringe 156 mg IM Q30D Qty: 1 4RF Rx Instructions: start on 04/07/23 and then every 30 days thereafter diphenhydramine HCl [Benadryl Allergy] 25 mg tablet 25 - 50 mg PO Q8H PRN (Reason: nausea and vomiting or allergy symptoms) Qty: 14 0RF lisinopril 20 mg tablet 20 mg PO BID 30 Days Qty: 60 1RF hydrochlorothiazide 25 mg tablet 25 mg PO DAILY 30 Days Qty: 30 1RF Invega 3 mg Tablet Extended Release 24 Hr 3 mg PO QAM 30 Days Qty: 30 1RF Invega 6 mg Tablet Extended Release 24 Hr 6 mg PO QNOON 30 Days Qty: 30 1RF Discharge Orders: Discharge ED (Routine); Ordered 04/26/23 Ordered By: Heladio Lopez Referrals: Drake Hernandez DO [Primary Care Provider] - Discharge Diet: Usual diet Discharge Activity: Increase activity as tolerated Patient Instructions: DASH Eating Plan (ED), Hypertension (ED) Activity Restrictions/Additional Instructions: Take routine medications as prescribed. Follow-up with primary care in 3 days for recheck of blood pressure. Return to ED for new concerns. Coding Level of Care Code ED Employee Health Rn for Aby Dixon
[2023-04-26 00:18] LABS: Basophils # 0.1 10^3/uL (0.0-0.1); Basophils % 0.8 %; Eosinophils # 0.6 10^3/uL (0.0-0.8); Eosinophils % 6.4 %; Hematocrit 41.2 % (42.0-52.0); Hemoglobin 13.9 g/dL (11.7-16.6); Lymphocytes # 3.5 10^3/uL (0.8-4.8); Mean Corpuscular HGB Conc 33.7 g/dL (30.0-36.0); Mean Corpuscular Hemoglobin 29.1 pg (28.0-34.0); Mean Corpuscular Volume 86.2 fl (80-94); Mean Platelet Volume 8.8 fL (7.4-10.4); Monocytes # 0.7 10^3/uL (0.2-0.9); Monocytes % 7.5 %; Neutrophils # 4.18 10^3/uL (1.8-7.7); Nucleated Red Blood Cells % 0 %; Platelet Count 231 10^3/cmm (130-400); Red Blood Count 4.78 10^6/uL (4.1-5.3); Red Cell Distribution Width 12.4 % (12.1-15.1); White Blood Count 9.1 10^3/uL (4.0-10.0)
[2023-04-26] MEDS: hydroCHLOROthiazide 25 mg Tablet PO (00:21)
[2023-04-26] MEDS: lisinopril 20 mg Tablet PO (00:21)
[2023-04-26 00:25] VITALS: BP 155/109; PULSE 102; RESP 18; O2SAT 98
[2023-04-26 00:51] LABS: Alanine Aminotransferase 110 U/L (0-41); Albumin Level 4.1 g/dL (3.5-5.2); Alkaline Phosphatase 72 U/L (40-130); Anion Gap 14.3 (5-19); Aspartate Amino Transferase 89 U/L (0-40); Blood Urea Nitrogen 11 mg/dL (6-20); Calcium 8.7 mg/dL (8.5-10.5); Carbon Dioxide 22 mmol/L (22-29); Chloride 102 mmol/L (98-107); Globulin 3.4 g/dL (1.3-4.6); Glomerular Filtration Rate 94.4 mL/min (90-130); Glucose 99 mg/dL (65-115); NT Pro B Type Natriuretic Pept 36 pg/mL (0-125); Osmolality Calculated 279 mOsm/kg (285-295); Potassium 3.3 mmol/L (3.5-5.1); Sodium 135 mmol/L (136-145); Total Bilirubin 0.3 mg/dL (0.15-1.2); Total Protein 7.5 g/dL (6.6-8.7)
[2023-04-26 01:04] LABS: Troponin T (5th) Once 8 ng/L (0-15)
[2023-04-26 01:32] VITALS: BP 188/119; PULSE 109; RESP 18; O2SAT 97
== END 2023-04-26 01:33 | disposition home or self-care (01) ==
PROVIDERS: Emergency Provider Nurse Practitioner Family; PCP Family Medicine
DX: I10 Essential (primary) hypertension (principal)
CPT/HCPCS: 71045; 80053; 83880; 84484; 85025; 93005; 99285

== ENCOUNTER 2023-08-04 14:22 | Inpatient (IN) | payer OTHER, MEDICAID, SELFPAY ==
[2023-01-05 17:00] VITALS: BMI 43.8
[2023-08-04] VITALS (9 sets, daily range): BP systolic 107–184; BP diastolic 66–146; PULSE 76–99; RESP 16–18; TEMP 36.4–36.7; O2SAT 97–98
--- NOTE | 2023-08-04 14:35 | W.ED.PSYCHS ---
HPI - Psych General: Chief Complaint: Psychiatric Symptoms Stated Complaint: MHE Time Seen by Provider: 08/04/23 14:23 Source: patient Mode of arrival: ambulatory Limitations: no limitations History of Present Illness: 29-year-old male has extensive psychiatric history states he has been having increasing depression over the last month with increased thoughts of suicidality has no specific plan but states he just does not feel like living anymore patient was seen at [facility] brought over here for admission he voluntarily wants to be admitted to the psych smiley he has no worsening improving factors. Associated symptoms: Reports depression and suicidal ideation Review of Systems Const: Denies: fever(s) or chills ENMT: Denies: throat pain or dental pain Card: Denies: chest pain Resp: Denies: dyspnea GI: Denies: abdominal pain, nausea, vomiting or diarrhea Musc: Denies: neck pain or back pain Skin/Breast: Denies: rash Neuro: Denies: headache(s) Psych: Reports: depression and suicidal ideation [facility] ED PFSH: Medical History Cannabis dependence, episodic use Chronic post-traumatic stress disorder Clinical diagnosis of COVID-19 Depression, major, recurrent, severe with psychosis History of attention deficit hyperactivity disorder (ADHD) History of substance use disorder last use of alcohol reported as February 2023 last use of opiates and methamphetamines reported 2017 HTN (hypertension) Idiopathic mild intellectual disability Schizoaffective disorder, depressive type Surgical History No pertinent past surgical history S/P knee surgery Family History Other Diabetes Family history of premature coronary artery disease Psychiatric illness Social History Smoking and tobacco status: former smoker Quit status (tobacco): considering quitting Second hand smoke exposure: Yes Alcohol intake: former Former alcohol use details: or 2020 Substance/Drug Use: former Date of last use: 10/2018 Adopted: No Caregiver/support person: No Lives independently: Yes Household members: other Details: Sober living house Housing: House Marital status: Legally Number of children: 2 Number of grandchildren: 0 Highest education level completed: Some College, No Degree service: No Current occupational status: employed Current occupation: [employer] 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) Pets and animals: Yes Pets & animals: cat(s) Leisure activites: music Sexually active: No Do you think of yourself as: Straight/Heterosexual Current gender identity: Male Stephany/Latter-Day: Episcopal Special stephany needs: No Agree to transfusion: Yes Financial difficulty paying for basics: Hard Physical Exam Const: COMMON NORMALS: no acute distress, patient oriented x3 and healthy appearing HENMT: COMMON NORMALS: normocephalic and atraumatic HEAD & SCALP: normocephalic and atraumatic Neck/C-Spine: COMMON NORMALS: full ROM and supple Chest: COMMONS NORMALS: normal inspection of the chest Resp: COMMON NORMALS: normal respiratory effort Cardio: COMMON NORMALS: regular rate, regular rhythm and No murmurs present (Cardio) RATE: regular rate RHYTHM: regular rhythm GI: INSPECTION: Yes normal to inspection Extremity: COMMON NORMALS: normal to inspection and full ROM Neuro: COMMON NORMALS: patient oriented x3, moves all extremities and no focal motor deficits Psych: COMMON NORMALS: mental status grossly normal, Normal thought process present and cooperative THOUGHT PROCESS: Normal thought process present THOUGHT CONTENT: Yes Suicidality present Skin: COMMON NORMALS: no rashes or lesions noted and no wounds GENERAL SKIN EXAM: no rashes or lesions noted Course Vital Signs: Vital signs: Vital Signs Temperature 97.7 F 08/04/23 14:23 Pulse Rate 95 08/04/23 14:23 Respiratory Rate 17 08/04/23 14:23 Blood Pressure 184/146 08/04/23 14:23 Pulse Oximetry 97 08/04/23 14:23 Oxygen Delivery Me thod Room Air 08/04/23 14:23 MDM - Psych Medical Decision Making Patient presents to us with ideation patient is medically cleared he is voluntary spoke to psychiatrist and will admit at this time. Medical Records I reviewed the patient's medical records. Lab Data I reviewed the patient's lab results. 08/04/23 14:42 08/04/23 14:42 Laboratory Results WBC 8.60 10^3/uL (3.29-11.43) 08/04/23 14:42 RBC 5.11 10^6/uL (3.85-5.65) 08/04/23 14:42 Hgb 14.70 g/dL (11.27-16.99) 08/04/23 14:42 Hct 43.9 % (37-53) 08/04/23 14:42 MCV 85.9 fl (82-101) 08/04/23 14:42 MCH 28.8 pg (27-33) 08/04/23 14:42 MCHC 33.5 g/dL (30-55) 08/04/23 14:42 RDW 12.6 % (12.1-15.1) 08/04/23 14:42 Plt Count 234 10^3/cmm (157-399) 08/04/23 14:42 MPV 8.8 fL (7.4-10.4) 08/04/23 14:42 Neut % (Auto) 50.7 % 08/04/23 14:42 Lymph % (Auto) 38.3 % 08/04/23 14:42 [place] % (Auto) 5.8 % 08/04/23 14:42 Eos % (Auto) 3.8 % 08/04/23 14:42 Baso % (Auto) 0.5 % 08/04/23 14:42 Neut # (Auto) 4.36 10^3/uL (1.8-7.7) 08/04/23 14:42 Lymph # (Auto) 3.3 10^3/uL (0.8-4.8) 08/04/23 14:42 [place] # (Auto) 0.5 10^3/uL (0.2-0.9) 08/04/23 14:42 Eos # (Auto) 0.3 10^3/uL (0.0-0.8) 08/04/23 14:42 Baso # (Auto) 0.0 10^3/uL (0.0-0.1) 08/04/23 14:42 Nucleated RBC % (auto) 0 % 08/04/23 14:42 Nucleated RBCs # 0.0 /100WBC 08/04/23 14:42 Sodium 139 mmol/L (136-145) 08/04/23 14:42 Potassium 4.2 mmol/L (3.5-5.1) 08/04/23 14:42 Chloride 108 mmol/L (98-107) H 08/04/23 14:42 Carbon Dioxide 19 mmol/L (22-29) L 08/04/23 14:42 Anion Gap 16.2 (5-19) 08/04/23 14:42 BUN 14 mg/dL (6-20) 08/04/23 14:42 Creatinine 0.8 mg/dL (0.7-1.2) 08/04/23 14:42 GFR Calculation 108.2 mL/min (90-130) 08/04/23 14:42 Glucose 98 mg/dL (65-115) 08/04/23 14:42 Calculated Osmolality 288 mOsm/kg (285-295) 08/04/23 14:42 Calcium 9.2 mg/dL (8.5-10.5) 08/04/23 14:42 Total Bilirubin 0.3 mg/dL (0.15-1.2) 08/04/23 14:42 AST 39 U/L (0-40) 08/04/23 14:42 ALT 71 U/L (0-41) H 08/04/23 14:42 Alkaline Phosphatase 74 U/L (40-130) 08/04/23 14:42 Total Protein 7.8 g/dL (6.6-8.7) 08/04/23 14:42 Albumin 4.4 g/dL (3.5-5.2) 08/04/23 14:42 Globulin 3.4 g/dL (1.3-4.6) 08/04/23 14:42 Salicylates < 0.3 mg/dL (3-10) L 08/04/23 14:42 Acetaminophen < 5.0 ug/mL (10-30) L 08/04/23 14:42 Ethyl Alcohol < 10 mg/dL (0-10) 08/04/23 14:42 Discharge Plan Discharge Patient Disposition: Admitted As Inpatient Admit Provider: Tremayne Crenshaw Clinical Impression: Suicidal ideation Condition: Stable Coding Level of Care Code ED Genetic Coordinator for Aby Dixon
[2023-08-04 14:52] LABS: Basophils % 0.5 %; Eosinophils # 0.3 10^3/uL (0.0-0.8); Eosinophils % 3.8 %; Hematocrit 43.9 % (37-53); Lymphocytes # 3.3 10^3/uL (0.8-4.8); Lymphocytes % 38.3 %; Mean Corpuscular HGB Conc 33.5 g/dL (30-55); Mean Corpuscular Hemoglobin 28.8 pg (27-33); Mean Corpuscular Volume 85.9 fl (82-101); Mean Platelet Volume 8.8 fL (7.4-10.4); Monocytes # 0.5 10^3/uL (0.2-0.9); Monocytes % 5.8 %; Neutrophils # 4.36 10^3/uL (1.8-7.7); Neutrophils % 50.7 %; Nucleated Red Blood Cells % 0 %; Platelet Count 234 10^3/cmm (157-399); Red Blood Count 5.11 10^6/uL (3.85-5.65); Red Cell Distribution Width 12.6 % (12.1-15.1)
--- NOTE | 2023-08-04 14:56 | PC.PHAR ---
pt states all meds were dced besides lisinopril 20 mg bid and ventolin hfa
[2023-08-04 15:09] LABS: Alanine Aminotransferase 71 U/L (0-41); Albumin Level 4.4 g/dL (3.5-5.2); Alkaline Phosphatase 74 U/L (40-130); Anion Gap 16.2 (5-19); Aspartate Amino Transferase 39 U/L (0-40); Blood Urea Nitrogen 14 mg/dL (6-20); Calcium 9.2 mg/dL (8.5-10.5); Carbon Dioxide 19 mmol/L (22-29); Chloride 108 mmol/L (98-107); Globulin 3.4 g/dL (1.3-4.6); Glomerular Filtration Rate 108.2 mL/min (90-130); Glucose 98 mg/dL (65-115); Osmolality Calculated 288 mOsm/kg (285-295); Potassium 4.2 mmol/L (3.5-5.1); Sodium 139 mmol/L (136-145); Total Bilirubin 0.3 mg/dL (0.15-1.2); Total Protein 7.8 g/dL (6.6-8.7)
[2023-08-04 15:10] LABS: Acetaminophen < 5.0 ug/mL (10-30); Alcohol Level < 10 mg/dL (0-10); Salicylate < 0.3 mg/dL (3-10)
[2023-08-04 15:11] LABS: Amphetamines Screen Urine Negative (Negative); Barbiturates Screen Urine Negative (Negative); Benzodiazepines Screen Urine Negative (Negative); Cocaine Screen Urine Negative (Negative); Opiate Screen Urine Negative (Negative); PCP Screen Urine Negative (Negative); THC Screen Urine Positive (Negative)
[2023-08-04] MEDS: LORazepam 2 mg Tablet PO (15:57)
[2023-08-04] MEDS: metoprolol tartrate 25 mg Tablet PO (15:57)
[2023-08-04] MEDS: lisinopril 20 mg Tablet PO (16:42)
[2023-08-04] MEDS: nicotine 2 mg Gum BUCCAL ×3 (17:46→22:58)
[2023-08-04] MEDS: trazodone 50 mg Tablet PO (20:47)
--- NOTE | 2023-08-04 21:05 | PM.CONSULT ---
Providers/Reason For Consult Consulting Physician/Specialty*: Dr. Yeimi bishop, hospitalist Reason for Consult*: Uncontrolled hypertension Attending Physician: Tremayne Crenshaw MD Primary Care Provider: Drake Hernandez DO History of Present Illness History of Present Illness Wicho Lugo is a 37 year old male with history of hypertension hyperlipidemia drug abuse admitted today in the neuropsychiatric unit for suicidal ideation. He was found to have high blood pressure of 171/126, 171/121 since admission. He reports having headache dizziness and chest discomfort associated with high blood pressure. He takes p.o. lisinopril 20 mg twice a day for his usual hypertension. Denies any chest pain shortness of breath nausea vomiting urinary or bowel complaints. Review of Systems Narrative: Review of systems as per HPI Medications/Allergies Home Medications Medication Instructions Recorded Confirmed Last Taken Type albuterol sulfate 90 mcg/actuation 2 puff inhalation Q6H PRN 04/26/23 08/04/23 Unknown Rx aerosol inhaler (Ventolin HFA) Shortness Of Breath Or Wheezing #18 grams lisinopril 20 mg tablet 20 mg PO BID #180 tabs 06/21/23 08/04/23 08/04/23 10:00 Rx albuterol sulfate 90 mcg/actuation 2 puff inhalation Q6H PRN 08/04/23 08/04/23 Unknown History aerosol inhaler (Ventolin HFA) Shortness Of Breath Or Wheezing cyproheptadine 4 mg tablet 4 mg PO BEDTIME 08/04/23 08/04/23 Unknown History fluticasone propionate 50 2 spray intranasal DAILY 08/04/23 08/04/23 Unknown History mcg/actuation nasal spray,suspension hydrochlorothiazide 25 mg tablet 25 mg PO DAILY 08/04/23 08/04/23 Unknown History paliperidone 3 mg tablet,extended 3 mg PO DAILY 08/04/23 08/04/23 Unknown History release 24 hr (Invega) paliperidone 9 mg tablet,extended 9 mg PO DAILY@17 08/04/23 08/04/23 Unknown History release 24 hr (Invega) Allergies Allergy/AdvReac Type Severity Reaction Status Date / Time amoxicillin Allergy ALGY-Hives Verified 08/04/23 14:55 olanzapine [From Zyprexa] Allergy ADR-Agitate Verified 08/04/23 14:55 d Current Medications Generic Name Dose Route Start Last Admin Trade Name Freq PRN Reason Stop Dose Admin Cyproheptadine HCl 4 mg 08/04/23 21:00 08/04/23 20:47 Cyproheptadine 4 Mg Tablet PO 4 mg BEDTIME CAMELIA Administration Nicotine Polacrilex 2 mg 08/04/23 17:39 08/04/23 19:42 Nicotine 2 Mg Gum BUCCAL 2 mg Q2H PRN Administration NICOTINE WITHDRAWAL Trazodone HCl 50 mg 08/04/23 17:39 08/04/23 20:47 Trazodone 50 Mg Tablet PO 50 mg BEDTIME PRN Administration SLEEP PFSH Acute PFSH: Medical History Cannabis dependence, episodic use Chronic post-traumatic stress disorder Clinical diagnosis of COVID-19 Depression, major, recurrent, severe with psychosis History of attention deficit hyperactivity disorder (ADHD) History of substance use disorder last use of alcohol reported as February 2023 last use of opiates and methamphetamines reported 2017 HTN (hypertension) Idiopathic mild intellectual disability Schizoaffective disorder, depressive type Surgical History No pertinent past surgical history S/P knee surgery Family History Other Diabetes Family history of premature coronary artery disease Psychiatric illness Social History Smoking and tobacco status: former smoker Quit status (tobacco): considering quitting Second hand smoke exposure: Yes Alcohol intake: former Former alcohol use details: or 2020 Substance/Drug Use: former Date of last use: 10/2018 Adopted: No Caregiver/support person: No Lives independently: Yes Household members: other Details: Sober living house Housing: House Marital status: Legally Number of children: 2 Number of grandchildren: 0 Highest education level completed: Some College, No Degree service: No Current occupational status: employed Current occupation: [employer] 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) Pets and animals: Yes Pets & animals: cat(s) Leisure activites: music Sexually active: No Do you think of yourself as: Straight/Heterosexual Current gender identity: Male Stephany/Christian: Mormonism Special stephany needs: No Agree to transfusion: Yes Financial difficulty paying for basics: Hard Vitals/I&O/Wt Last Vital Signs Temp 98.0 F 08/04/23 20:59 Pulse 84 08/04/23 20:59 Resp 18 08/04/23 20:59 BP 140/98 08/04/23 20:59 Pulse Ox 97 08/04/23 20:59 O2 Del Method Room Air 08/04/23 17:40 Weight last 48 hrs Weight 158.757 kg Physical Exam Narrative: He is alert awake oriented x3 morbidly obese, and cooperative, sitting comfortably Chest clear to auscultation bilaterally Cardiovascular normal heart sounds Abdomen soft nondistended nontender normal bowel sounds Extremities 1+ bilateral pedal edema present Data 08/04/23 14:42 08/04/23 14:42 A&P Assessment and plan (1) Uncontrolled hypertension: In view of symptomatic uncontrolled hypertension, will add amlodipine 10 mg twice a day along with p.o. lisinopril 20 mg twice a day. Monitor blood pressure readings, check ECG Labs reviewed, are acceptable except urine toxicology positive for marijuana. Counselled about the drug use but patient refused to quit. Inform SOS Will follow-up. Consult Attestations Medical Necessity Statement: Patient admitted in neuropsychiatric unit and had symptomatic uncontrolled high blood pressure, hence medical consult requested Time Spent in Patient Care: 25 minutes Coding Level of Care Code Acute Code for Chg Fwd Diagnoses Uncontrolled hypertension I10 Time Spent (min) 25
[2023-08-04] MEDS: acetaminophen 325 mg Tablet 650 MG PO (21:13)
--- NOTE | 2023-08-04 21:23 | ECG_ITS ---
[facility] Test Date: 2023-08-04 Pat Name: Wicho Lugo Department: Room: 131 Gender: Male Quantitative Research Analyst: : 1985 Requested By: Yeimi Bishop Order Number: [id number] Sil MD: Angelia Olea M.D. Measurements Intervals [place] Rate: 76 P: 47 [place]: 156 QRS: 32 QRSD: 114 T: 29 QT: 389 QTc: 439 Interpretive Statements SINUS RHYTHM MODERATE INTRAVENTRICULAR CONDUCTION DELAY [110+ ms QRS DURATION] Compared to ECG 04/25/2023 23:58:08 Intraventricular conduction delay now present Sinus tachycardia no longer present Ventricular premature complex(es) no longer present Myocardial infarct finding no longer present Electronically Signed On 08-05-2023 21:27:55 CDT by Angelia Olea M.D. [id number]
[2023-08-04] MEDS: calcium carbonate 500 mg Chew Tablet 1000 MG PO (22:57)
[2023-08-04] MEDS: TRAMadol 50 mg Tablet PO (22:59)
[2023-08-05 06:00] VITALS: BP 135/85; PULSE 76; RESP 17; TEMP 36.6; O2SAT 97
[2023-08-05] MEDS: hydroCHLOROthiazide 25 mg Tablet PO (09:26)
[2023-08-05] MEDS: pantoprazole DR 40 mg Tablet PO (09:26)
[2023-08-05] MEDS: lisinopril 20 mg Tablet PO ×2 (09:26→16:35)
[2023-08-05] MEDS: amlodipine 10 mg Tablet PO ×2 (09:26→16:35)
[2023-08-05] MEDS: paliperidone ER 3 mg Tablet PO (09:26)
[2023-08-05] MEDS: nicotine 2 mg Gum BUCCAL ×4 (09:31→20:07)
[2023-08-05] MEDS: fluticasone nasal spray 16gm Btl 2 SPRAY INTRANASAL (09:31)
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
[2023-08-05 12:18] VITALS: BP 138/97; PULSE 91; RESP 16; O2SAT 97
[2023-08-05 14:00] VITALS: BP 189/81; PULSE 96; RESP 18; TEMP 36.6; O2SAT 97
[2023-08-05] MEDS: paliperidone ER 9 mg Tablet PO (16:35)
[2023-08-05] MEDS: hyDROXYzine 25 mg Capsule 50 MG PO (16:35)
[2023-08-05] MEDS: TRAMadol 50 mg Tablet PO (16:35)
[2023-08-05] MEDS: trazodone 50 mg Tablet PO (20:06)
[2023-08-05 20:28] VITALS: BP 131/74; PULSE 97; RESP 20; TEMP 36.4; O2SAT 97
[2023-08-06 06:00] VITALS: RESP 20
[2023-08-06] MEDS: lisinopril 20 mg Tablet PO ×2 (08:00→17:02)
[2023-08-06] MEDS: paliperidone ER 3 mg Tablet PO (08:00)
[2023-08-06] MEDS: hydroCHLOROthiazide 25 mg Tablet PO (08:00)
[2023-08-06] MEDS: pantoprazole DR 40 mg Tablet PO (08:00)
[2023-08-06] MEDS: amlodipine 10 mg Tablet PO ×2 (08:00→17:02)
--- NOTE | 2023-08-06 08:33 | PC.NURSE ---
Got up to eat breakfast this morning. Patient states he did not sleep well last night because he kept dreaming about seeing his brother in his casket. He denies si/hi, but does endorse depression due to not seeing his children in 5 years. Patient denies avh. Calm and cooperative with assessment.
[2023-08-06] MEDS: nicotine 2 mg Gum BUCCAL ×4 (11:04→19:26)
--- NOTE | 2023-08-06 12:05 | P.NPUPN_ITS ---
Subjective NPU Subjective: Patient presented today speaking diametrically opposite to yesterday. Now reporting the need to be discharged and future orientation of needing to take care of his dogs. We identified that people do not take care of their dogs. We discussed his very abrupt change from absolutely not wanting to go on to needing to leave and take care of results. He had no real explanation for that and we discussed him staying till tomorrow at least to identify whether the wind changes again to identify whether he is safe for discharge. He was agreeable to that plan. Mental Status Exam MSE Comments: This is an obese versus morbidly obese white male in hospital scrubs with limited grooming and eye contact.? No abnormal movements except for psychomotor retardation.? Cooperative with exam in mild to moderate distress.? Speech was slightly decreased rate and volume.? Mood described as a little better ready to go home, affect congruent.? Thought process organized.? Thought content: Patient denied suicidal or homicidal ideation, there were no delusions reported or noted, he denied any auditory or visual hallucinations.? Attention and concentration were intact and memory appeared mostly reliable but none were formally tested.? He is alert and oriented x3.? Insight and judgment appear limited and impulse control is impaired. Vitals/I&O/Wt Last Vital Signs Temp 97.5 F L 08/05/23 20:28 Pulse 97 08/05/23 20:28 Resp 20 H 08/06/23 06:00 BP 131/74 08/05/23 20:28 Pulse Ox 97 08/05/23 20:28 O2 Del Method Room Air 08/05/23 14:00 Weight last 48 hrs Weight 158.757 kg Data NPU 08/04/23 14:42 08/04/23 14:42 A&P Assessment and plan (1) Suicidal ideation: (2) Schizoaffective disorder: (3) Cannabis dependence, episodic use: Plan This is a 37-year-old white male with a long history of trauma, addiction and suicidal thoughts who presents with addiction in remission and recent nonadherence with meds reporting despair and suicidal ideation 1.? Restarted previous medications.? Consider medication increase. 2.? Continue every 15 minute checks for safety. 3.? Encourage individual, group and milieu therapies. 4. Encourage sober living treatment after discharge at the highest level of care to which he is willing to commit. 5. Patient went from despair and not being able to go on yesterday to needing to go home and take care of his dogs today. This is very consistent however with past hospitalizations where concern of malingering has to be raised as he often has abrupt changes going from needing to stay longer to abruptly needing to leave immediately. Involuntary Hold Information 96 Hour Hold: 96 Hour Involuntary Admission: No 96 Hour Hold Ending Date: 11/12/21 96 Hour Hold Ending Time: 20:29 Attestations NPU Medical Necessity Statement*: Inpatient hospitalization is medically necessary and the clinically appropriate intervention at this time. We will monitor medications and make changes as indicated. Likely length of stay 1-4 days. Coding Level of Care Code Acute Code for [facility] Fwd Diagnoses Suicidal ideation R45.851 Schizoaffective disorder F25.9 Cannabis dependence, episodic use F12.20
[2023-08-06 14:00] VITALS: BP 99/62; PULSE 103; RESP 17; O2SAT 98
[2023-08-06] MEDS: paliperidone ER 9 mg Tablet PO (17:02)
[2023-08-06 19:33] VITALS: BP 122/75; PULSE 118; RESP 18; TEMP 36.6; O2SAT 95
[2023-08-06] MEDS: TRAMadol 50 mg Tablet PO (19:39)
[2023-08-06] MEDS: trazodone 50 mg Tablet PO (19:39)
[2023-08-07 06:00] VITALS: RESP 16
--- NOTE | 2023-08-07 06:32 | PC.NURSE ---
pt resting vs not taken resp 16
[2023-08-07] MEDS: lisinopril 20 mg Tablet PO ×2 (08:49→17:53)
[2023-08-07] MEDS: fluticasone nasal spray 16gm Btl 2 SPRAY INTRANASAL (08:49)
[2023-08-07] MEDS: paliperidone ER 3 mg Tablet PO (08:49)
[2023-08-07] MEDS: hydroCHLOROthiazide 25 mg Tablet PO (08:49)
[2023-08-07] MEDS: pantoprazole DR 40 mg Tablet PO (08:49)
[2023-08-07] MEDS: amlodipine 10 mg Tablet PO ×2 (08:49→17:53)
[2023-08-07] MEDS: nicotine 2 mg Gum BUCCAL ×3 (10:40→20:14)
[2023-08-07] MEDS: hyDROXYzine 25 mg Capsule 50 MG PO (10:44)
--- NOTE | 2023-08-07 10:48 | PC.NURSE ---
pt up at nurses station requesting anxiety medication states having thoughts of hurting himself but no plan
[2023-08-07 13:30] VITALS: BP 100/61; PULSE 100; RESP 16; TEMP 36.8; O2SAT 97
--- NOTE | 2023-08-07 15:35 | P.NPUPN_ITS ---
Subjective NPU Subjective: Patient presented today reporting that he is feeling a little more calm than he was yesterday and acknowledges that he still needs a little more time here. We discussed that we would take it a day at a time but it was important for him to understand there are some limitations and our ability to conduct transportation on the weekend with limited notice. We discussed that he will staying till Wednesday to make the most sense but that we would continue to work on things on a daily basis as he continues to improve with his medications restarted. Mental Status Exam MSE Comments: This is an obese versus morbidly obese white male in hospital scrubs with limited grooming and eye contact.? No abnormal movements except for psychomotor retardation.? Cooperative with exam in mild distress.? Speech was slightly decreased rate and volume.? Mood described as a little better I think I need another day,, affect congruent.? Thought process organized.? Thought content: Patient denied suicidal or homicidal ideation, there were no delusions reported or noted, he denied any auditory or visual hallucinations.? Attention and concentration were intact and memory appeared mostly reliable but none were fo rmally tested.? He is alert and oriented x3.? Insight and judgment appear limited and impulse control is impaired. Vitals/I&O/Wt Last Vital Signs Temp 98.3 F 08/07/23 13:30 Pulse 100 08/07/23 13:30 Resp 16 08/07/23 13:30 BP 100/61 08/07/23 13:30 Pulse Ox 97 08/07/23 13:30 O2 Del Method Room Air 08/07/23 13:30 Data NPU 08/04/23 14:42 08/04/23 14:42 A&P Assessment and plan (1) Suicidal ideation: (2) Schizoaffective disorder: (3) Cannabis dependence, episodic use: Plan This is a 37-year-old white male with a long history of trauma, addiction and suicidal thoughts who presents with addiction in remission and recent nonadherence with meds reporting despair and suicidal ideation 1.? Restarted previous medications.? Consider medication increase. 2.? Continue every 15 minute checks for safety. 3.? Encourage individual, group and milieu therapies. 4. Encourage sober living treatment after discharge at the highest level of care to which he is willing to commit. 5. Patient went from despair and not being able to go on yesterday to needing to go home and take care of his dogs today. This is very consistent however with past hospitalizations where concern of malingering has to be raised as he o ften has abrupt changes going from needing to stay longer to abruptly needing to leave immediately. Today, 08/07/2023 patient is reporting that he is feeling a continued need to be here and that he stabilized on his medications. We agreed we would take it a day at a time. Involuntary Hold Information 96 Hour Hold: 96 Hour Involuntary Admission: No 96 Hour Hold Ending Date: 11/12/21 96 Hour Hold Ending Time: 20:29 Attestations NPU Medical Necessity Statement*: Inpatient hospitalization is medically necessary and the clinically appropriate intervention at this time. We will monitor medications and make changes as indicated. Likely length of stay 1-3 days. Coding Level of Care Code Acute Code for g Fwd Diagnoses Suicidal ideation R45.851 Schizoaffective disorder F25.9 Cannabis dependence, episodic use F12.20
[2023-08-07] MEDS: paliperidone ER 9 mg Tablet PO (17:53)
[2023-08-07] MEDS: calcium carbonate 500 mg Chew Tablet 1000 MG PO (19:38)
[2023-08-07 19:44] VITALS: BP 136/82; PULSE 101; RESP 18; TEMP 36.4; O2SAT 95
[2023-08-08 06:00] VITALS: RESP 16
[2023-08-08] MEDS: hydroCHLOROthiazide 25 mg Tablet PO (09:45)
[2023-08-08] MEDS: pantoprazole DR 40 mg Tablet PO (09:45)
[2023-08-08] MEDS: lisinopril 20 mg Tablet PO (09:45)
[2023-08-08] MEDS: amlodipine 10 mg Tablet PO (09:45)
[2023-08-08] MEDS: fluticasone nasal spray 16gm Btl 2 SPRAY INTRANASAL (09:45)
[2023-08-08] MEDS: paliperidone ER 3 mg Tablet PO (09:45)
[2023-08-08] MEDS: nicotine 2 mg Gum BUCCAL ×2 (09:48→11:54)
--- NOTE | 2023-08-08 09:51 | PC.NURSE ---
During morning assessment, patient denies SI, HI, AVH, anxiety, and depression. Patient states that he is ready to go home. Patient took his morning medications with no issue.
--- NOTE | 2023-08-08 13:47 | W.PM.NPUDCS ---
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 currently active Depression Type: major depressive disorder Major depression episode severity: severe Major depression recurrence: recurrent Psychotic features: without psychotic features Suicidal ideation R45.851 Cannabis dependence, episodic use F12.20
[2023-08-08 13:52] VITALS: RESP 16
[2023-08-08 14:00] VITALS: BP 129/81; PULSE 231; RESP 16; TEMP 37.1; O2SAT 98
[2023-08-08 14:12] VITALS: PULSE 129
== END 2023-08-08 14:24 | disposition home or self-care (01) | DRG 885 ==
LOC: ER 14:36 → NP 14:43
PROVIDERS: Admitting Provider Psychiatry & Neurology Psychiatry; Emergency Provider Emergency Medicine; PCP Family Medicine; Visit Provider Psychiatry & Neurology Psychiatry
DX: F33.2 Major depressive disorder, recurrent severe without psychotic features (principal); R45.851 Suicidal ideations; I10 Essential (primary) hypertension; Z91.138 Patient's unintentional underdosing of medication regimen for other reason; Z59.00 Homelessness unspecified; F12.20 Cannabis dependence, uncomplicated; F25.9 Schizoaffective disorder, unspecified
CPT/HCPCS: 36415; 80053; 80306; 80307; 85025; 93005; 97165; 99238; 99285

== ENCOUNTER → 2023-09-13 14:32 | Outpatient (BNVA) | payer OTHER, SELFPAY ==
[2023-01-05 17:00] VITALS: BMI 43.8
== END ==
PROVIDERS: PCP Family Medicine; Visit Provider Registered Nurse Neonatal Intensive Care
DX: R11.2 Nausea with vomiting, unspecified (principal); Z91.018 Allergy to other foods
CPT/HCPCS: 86003; 86008; 86618; 86666; 86757

== ENCOUNTER 2023-10-03 18:40 | Emergency (ER) | payer OTHER, MEDICAID, SELFPAY ==
[2023-01-05 17:00] VITALS: BMI 43.8
[2023-10-03 18:47] VITALS: BP 176/124; PULSE 115; RESP 17; TEMP 36.7; O2SAT 96
[2023-10-03 21:10] LABS: Influenza A by IFA negative (Negative); Influenza B by IFA negative (Negative); SARS Covid-2 Antigen negative (Negative)
--- NOTE | 2023-10-03 21:25 | XRR_ITS ---
PROCEDURE INFORMATION: Exam: XR Chest Exam date and time: 10/03/2023 10:12 PM Age: 37 years old Clinical indication: Shortness of breath TECHNIQUE: Imaging protocol: Radiologic exam of the chest. Views: 1 view. COMPARISON: CR XR chest 1V portable [id number] 04/25/2023 11:11 PM FINDINGS: Lungs: Unremarkable. No consolidation. Pleural spaces: Unremarkable. No pleural effusion. No pneumothorax. Heart/Mediastinum: Unremarkable. No cardiomegaly. Bones/joints: Unremarkable. XR/XR chest 1V portable [id number] IMPRESSION: No change, unremarkable
--- NOTE | 2023-10-03 21:29 | ED_ITS ---
HPI - General Adult General: Chief complaint: General Medical Stated complaint: Headache\N\Conjested Time Seen by Provider: 10/03/23 20:22 History of Present Illness: Patient presents to the ER feeling congested headache feeling bad all over, shortness of breath diarrhea cough. Patient states has been around people with influenza and COVID. Patient also states he has alpha gal just recently diagnosed and is not for sure that he did not eat something that he should not have. Review of Systems General: Reports: 10 or more systems reviewed and unremarkable except in HPI and below PFSH ED PFSH: Medical History Cannabis dependence, episodic use Chronic post-traumatic stress disorder Clinical diagnosis of COVID-19 History of attention deficit hyperactivity disorder (ADHD) History of substance use disorder last use of alcohol reported as February 2023 last use of opiates and methamphetamines reported 2017 HTN (hypertension) Idiopathic mild intellectual disability Schizoaffective disorder, depressive type Surgical History No pertinent past surgical history S/P knee surgery Family History Other Diabetes Family history of premature coronary artery disease Psychiatric illness Social History Smoking and tobacco/nicotine status: former use of tobacco/nicotine Quit status (tobacco/nicotine): considering quitting Second hand smoke exposure: Yes Alcohol intake: former Former alcohol use details: or 2020 Substance/Drug Use: former Date of last use: 10/2018 Adopted: No Caregiver/support person: No Lives independently: Yes Household members: other Details: Sober living house Housing: House Marital status: Legally Number of children: 2 Number of grandchildren: 0 Highest education level completed: Some College, No Degree service: No Current occupational status: employed Current occupation: [employer] 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) Pets and animals: Yes Pets & animals: cat(s) Leisure activites: music Sexually active: No Do you think of yourself as: Straight/Heterosexual Current gender identity: Male Stephany/Alevism: Bahai Special stephany needs: No Agree to transfusion: Yes Physical Exam Const: COMMON NORMALS: no acute distress, average body habitus, patient oriented x3, no limitations, healthy appearing, alert and well nourished HENMT: COMMON NORMALS: normocephalic, atraumatic, hearing grossly normal bilaterally, external ears normal, Normal external nose present, moist oral mucous membranes and oropharynx normal HEAD & SCALP: normocephalic and atraumatic NOSE: Normal external nose present EXTERNAL EAR: Yes external ears normal Eye: COMMON NORMALS: Equal, round and reactive pupils present, EOMs intact bilaterally, conjunctivae normal and no scleral icterus CONJUNCTIVA: Yes conjunctivae normal PUPIL: Yes Equal, round and reactive pupils present Neck/C-Spine: COMMON NORMALS: no JVD Chest: COMMONS NORMALS: normal inspection of the chest and normal palpation of entire chest wall Resp: COMMON NORMALS: normal respiratory effort, No use of accessory muscles and clear to auscultation bilaterally AUSCULTATION: clear to auscultation bilaterally Cardio: COMMON NORMALS: no JVD, regular rhythm, S1 normal heart sound present, S2 normal heart sound present, No gallops present (Cardio), No clicks present (Cardio), No murmurs present (Cardio) and No rub (Cardio); negative for regular rate (Tachycardic) RATE: abnormal rate (Tachycardic) RHYTHM: regular rhythm HEART SOUNDS: S1 normal heart sound present and S2 normal heart sound present GI: COMMON NORMALS: Normal to inspection, nondistended, normoactive bowel sounds present, Soft to palpation, non-tender, No hepatosplenomegaly present and no masses PALPATION: Yes Soft to palpation and Yes No hepatosplenomegaly present : COMMON NORMALS: Yes no CVA tenderness BLADDER/KIDNEY EXAM: Yes no CVA tenderness Back/Pelvis: COMMON NORMALS: no CVA tenderness Neuro: COMMON NORMALS: patient oriented x3 SENSORIUM/ORIENTATION: Yes alert Course Vital Signs: Vital signs: Vital Signs Temperature 98.0 F 10/03/23 18:47 Pulse Rate 91 10/03/23 21:36 Respiratory Rate 16 10/03/23 21:36 Blood Pressure 168/119 10/03/23 21:36 Pulse Oximetry 96 10/03/23 21:36 Oxygen Delivery Me thod Room Air 10/03/23 21:36 [facility] - General Adult Medical Decision Making Patient was swabbed for influenza and COVID both were negative. Patient has preliminary chest x-ray that will be read off as negative. Lab work was essentially benign. Not revealing any acute cause of patient's symptomatology. Patient be discharged with diagnosis of a viral syndrome and told to follow-up with his family practice physician in the next 7 to 10 days. Differential Diagnosis Influenza, COVID, gastroenteritis, viral syndrome Medical Records I reviewed the patient's medical records. Lab Data I reviewed the patient's lab results. 10/03/23 21:32 10/03/23 21: Laboratory Results WBC 9.72 10^3/uL (3.29-11.43) 10/03/23 21: RBC 5.00 10^6/uL (3.85-5.65) 10/03/23: Hgb 15.00 g/dL (11.27-16.99) 10/03/23: Hct 43.3 % (37-53) 10/03/23: MCV 86.6 fl (82-101) 10/03/23: MCH 30.0 pg (27-33) 10/03/23 21: MCHC 34.6 g/dL (30-55) 10/03/23: RDW 12.5 % (12.1-15.1) 10/03/23: Plt Count 215 10^3/cmm (157-399) 10/03/23: MPV 8.6 fL (7.4-10.4) 10/03/23 21: Neut % (Auto) 55.2 % 10/03/23: Lymph % (Auto) 34.0 % 10/03/23 21: [place] % (Auto) 6.5 % 10/03/23 21: Eos % (Auto) 3.5 % 10/03/23: Baso % (Auto) 0.5 % 10/03/23: Neut # (Auto) 5.37 10^3/uL (1.8-7.7) 10/03/23: Lymph # (Auto) 3.3 10^3/uL (0.8-4.8) 10/03/23: [place] # (Auto) 0.6 10^3/uL (0.2-0.9) 10/03/23 21:32 Eos # (Auto) 0.3 10^3/uL (0.0-0.8) 10/03/23 21:32 Baso # (Auto) 0.1 10^3/uL (0.0-0.1) 10/03/23 21:32 Nucleated RBC % (auto) 0 % 10/03/23 21:32 Nucleated RBCs # 0.0 /100WBC 10/03/23 21:32 Sodium 137 mmol/L (136-145) 10/03/23 21:32 Potassium 3.6 mmol/L (3.5-5.1) 10/03/23 21:32 Chloride 103 mmol/L (98-107) 10/03/23 21:32 Carbon Dioxide 23 mmol/L (22-29) 10/03/23 21:32 Anion Gap 14.6 (5-19) 10/03/23 21:32 BUN 8 mg/dL (6-20) 10/03/23 21:32 Creatinine 1.0 mg/dL (0.7-1.2) 10/03/23 21:32 GFR Calculation 83.6 mL/min (90-130) L 10/03/23 21:32 Glucose 94 mg/dL (65-115) 10/03/23 21:32 Calculated Osmolality 282 mOsm/kg (285-295) L 10/03/23 21:32 Calcium 9.0 mg/dL (8.5-10.5) 10/03/23 21:32 Magnesium 1.9 mg/dL (1.7-2.3) 10/03/23 21:32 Total Bilirubin 0.5 mg/dL (0.15-1.2) 10/03/23 21:32 AST 37 U/L (0-40) 10/03/23 21:32 ALT 63 U/L (0-41) H 10/03/23 21:32 Alkaline Phosphatase 67 U/L (40-130) 10/03/23 21:32 Total Protein 7.5 g/dL (6.6-8.7) 10/03/23 21:32 Albumin 4.4 g/dL (3.5-5.2) 10/03/23 21:32 Globulin 3.1 g/dL (1.3-4.6) 10/03/23 21:32 Lipase 37 U/L (13-60) 10/03/23 21:32 Influenza Type A Ag negative (Negative) 10/03/23 20:45 Influenza Type B Ag negative (Negative) 10/03/23 20:45 SARS-CoV-2 Ag (Rapid) negative (Negative) 10/03/23 20:45 XR interpretation done by ED provider, pending radiology final review Discharge Plan Discharge Patient Disposition: Home Clinical Impression: Viral syndrome HTN (hypertension) Qualifiers: Hypertension type: primary hypertension Qualified Code(s): I10 - Essential (primary) hypertension Condition: Stable Prescriptions: No Action Invega Sustenna 234 mg/1.5 mL syringe 234 mg IM Q30D Qty: 1.5 6RF Rx Instructions: Monthly injection Invega Sustenna 117 mg/0.75 mL syringe 117 mg IM Q30D Qty: 0.75 0RF Rx Instructions: Loading dose-receive 7 days after 234 mg IM albuterol sulfate [Ventolin HFA] 90 mcg/actuation Hfa Aerosol Inhaler 2 puff INHALATION Q6H PRN (Reason: Shortness Of Breath Or Wheezing) Qty: 18 0RF fluticasone propionate 50 mcg/actuation [place],Suspension 2 spray INTRANASAL DAILY Rx Instructions: administer into each nostril Ventolin HFA 90 mcg/actuation Hfa Aerosol Inhaler 2 puff INHALATION Q6H PRN (Reason: Shortness Of Breath Or Wheezing) amlodipine 10 mg Tablet 10 mg PO BID 30 Days Qty: 60 1RF lisinopril 20 mg tablet 20 mg PO BID Qty: 180 1RF cyproheptadine 4 mg Tablet 4 mg PO BEDTIME 30 Days Qty: 30 1RF hydrochlorothiazide 25 mg Tablet 25 mg PO DAILY 30 Days Qty: 120 1RF Discharge Orders: Discharge ED (Routine); Ordered 10/03/23 Ordered By: Len Teixeira Referrals: Drake Hernandez DO [Primary Care Provider] - 7-10 days Patient Instructions: Hypertension (ED), Viral Syndrome - Adult Activity Restrictions/Additional Instructions: All your lab work in the ER was negative and your chest x-ray was preliminary read off as negative. It is thought you have a viral syndrome. Please keep a blood pressure log and take it to your next appointment with your family practice physician. Please make this appointment within the next 7 to 10 days for further evaluation and treatment. Coding Level of Care Code ED Linseed Cake Trimmer for Aby Dixon
[2023-10-03 21:36] VITALS: BP 168/119; PULSE 91; RESP 16; O2SAT 96
[2023-10-03] MEDS: sodium chloride 0.9% 1,000 ML 999 ML IV (21:38)
[2023-10-03 21:39] LABS: Basophils # 0.1 10^3/uL (0.0-0.1); Basophils % 0.5 %; Eosinophils # 0.3 10^3/uL (0.0-0.8); Eosinophils % 3.5 %; Hematocrit 43.3 % (37-53); Lymphocytes # 3.3 10^3/uL (0.8-4.8); Mean Corpuscular HGB Conc 34.6 g/dL (30-55); Mean Corpuscular Volume 86.6 fl (82-101); Mean Platelet Volume 8.6 fL (7.4-10.4); Monocytes # 0.6 10^3/uL (0.2-0.9); Monocytes % 6.5 %; Neutrophils # 5.37 10^3/uL (1.8-7.7); Neutrophils % 55.2 %; Nucleated Red Blood Cells % 0 %; Platelet Count 215 10^3/cmm (157-399); Red Cell Distribution Width 12.5 % (12.1-15.1); White Blood Count 9.72 10^3/uL (3.29-11.43)
[2023-10-03 22:02] LABS: Alanine Aminotransferase 63 U/L (0-41); Albumin Level 4.4 g/dL (3.5-5.2); Alkaline Phosphatase 67 U/L (40-130); Anion Gap 14.6 (5-19); Aspartate Amino Transferase 37 U/L (0-40); Blood Urea Nitrogen 8 mg/dL (6-20); Carbon Dioxide 23 mmol/L (22-29); Chloride 103 mmol/L (98-107); Globulin 3.1 g/dL (1.3-4.6); Glomerular Filtration Rate 83.6 mL/min (90-130); Glucose 94 mg/dL (65-115); Lipase 37 U/L (13-60); Magnesium 1.9 mg/dL (1.7-2.3); Osmolality Calculated 282 mOsm/kg (285-295); Potassium 3.6 mmol/L (3.5-5.1); Sodium 137 mmol/L (136-145); Total Bilirubin 0.5 mg/dL (0.15-1.2); Total Protein 7.5 g/dL (6.6-8.7)
[2023-10-03 22:33] VITALS: BP 174/128; PULSE 92; RESP 20; O2SAT 100
== END 2023-10-03 22:35 | disposition home or self-care (01) ==
PROVIDERS: Emergency Provider Emergency Medicine; PCP Family Medicine
DX: B34.9 Viral infection, unspecified (principal); I10 Essential (primary) hypertension; Z11.52 Encounter for screening for COVID-19; Z87.891 Personal history of nicotine dependence
CPT/HCPCS: 71045; 80053; 83690; 83735; 85025; 87426; 87804; 96360; 99284; J7030

== ENCOUNTER → 2023-10-14 14:27 | Outpatient (BNVA) | payer OTHER, MEDICAID, SELFPAY ==
[2023-01-05 17:00] VITALS: BMI 43.8
== END ==
PROVIDERS: PCP Family Medicine; Visit Provider Nurse Practitioner Psychiatric/Mental Health
DX: F41.9 Anxiety disorder, unspecified (principal); Z79.899 Other long term (current) drug therapy; F25.1 Schizoaffective disorder, depressive type; Z87.898 Personal history of other specified conditions; F43.12 Post-traumatic stress disorder, chronic; Z86.59 Personal history of other mental and behavioral disorders; F70 Mild intellectual disabilities
CPT/HCPCS: 80061; 83036

== ENCOUNTER 2023-12-05 17:56 | Inpatient (IN) | payer OTHER, MEDICAID, SELFPAY ==
[2023-10-28 11:41] VITALS: BP 157/109; BMI 43.6
[2023-12-05 18:01] VITALS: BP 164/117; PULSE 114; RESP 16; TEMP 36.6; O2SAT 95; BMI 44.7
--- NOTE | 2023-12-05 18:12 | W.ED.PSYCHS ---
HPI - Psych General: Chief Complaint: Psychiatric Symptoms Stated Complaint: SI Time Seen by Provider: 12/05/23 17:58 Source: patient Mode of arrival: ambulatory History of Present Illness: 38-year-old male states that he is suicidal with a plan of cutting his wrist. He states that he just feels down he has nowhere to go nowhere to stay has been want to kill himself patient has been admitted here before denies any worsening improving factors. Associated symptoms: Reports depression and suicidal ideation Review of Systems Const: Denies: fever(s), chills, body aches or change in appetite ENMT: Denies: throat pain or dental pain Card: Denies: chest pain Resp: Denies: dyspnea GI: Denies: abdominal pain, nausea, vomiting or diarrhea Musc: Denies: neck pain or back pain Skin/Breast: Denies: rash Neuro: Denies: headache(s) Psych: Reports: depression and suicidal ideation [facility] ED PFSH: Medical History Cannabis dependence, episodic use Schizoaffective disorder, depressive type HTN (hypertension) History of substance use disorder last use of alcohol reported as February 2023 last use of opiates and methamphetamines reported 2017 History of attention deficit hyperactivity disorder (ADHD) Idiopathic mild intellectual disability Chronic post-traumatic stress disorder Clinical diagnosis of COVID-19 Surgical History S/P knee surgery No pertinent past surgical history Family History Other Diabetes Family history of premature coronary artery disease Psychiatric illness Social History Smoking and tobacco/nicotine status: current every day tobacco/nicotine user e-cigarettes E-Cigarette Details: with nicotine E-cig/vape details: 6% one 8,000 puff POD lasts maybe one week Quit status (tobacco/nicotine): not considering quitting Second hand smoke exposure: Yes Alcohol intake: former Former alcohol use details: or 2020 Substance/Drug Use: current Substance/Drug use frequency: few times a month Other substance/drug use details: only when available Adopted: No Caregiver/support person: No Lives independently: Yes Household members: other Details: homeless but stay with a friend Housing: House Marital status: Legally Number of children: 2 Number of grandchildren: 0 Highest education level completed: Some College, No Degree service: No Current occupational status: unemployed Current occupational exposures/hazards: No Pets and animals: Yes Pets & animals: dog(s) Leisure activites: other Leisure activities details: social media Sexually active: No Do you think of yourself as: Straight/Heterosexual Current gender identity: Male Stephany/Rastafari: [employer]ian Special stephany needs: No Agree to transfusion: Yes Physical Exam Const: COMMON NORMALS: no acute distress, patient oriented x3 and healthy appearing HENMT: COMMON NORMALS: normocephalic and atraumatic HEAD & SCALP: normocephalic and atraumatic Neck/C-Spine: COMMON NORMALS: full ROM and supple Chest: COMMONS NORMALS: normal inspection of the chest Resp: COMMON NORMALS: normal respiratory effort Cardio: COMMON NORMALS: regular rate, regular rhythm and No murmurs present (Cardio) RATE: regular rate RHYTHM: regular rhythm Extremity: COMMON NORMALS: normal to inspection and full ROM Neuro: COMMON NORMALS: patient oriented x3, moves all extremities and no focal motor deficits Psych: COMMON NORMALS: mental status grossly normal, Normal thought process present and cooperative THOUGHT PROCESS: Normal thought process present Skin: COMMON NORMALS: no rashes or lesions noted and no wounds GENERAL SKIN EXAM: no rashes or lesions noted Course Vital Signs: Vital signs: Vital Signs Temperature 97.9 F 12/05/23 18:01 Pulse Rate 114 H 12/05/23 18:01 Respiratory Rate 16 12/05/23 18:01 Blood Pressure 164/117 12/05/23 18:01 Pulse Oximetry 95 12/05/23 18:01 Oxygen Delivery Me thod Room Air 12/05/23 18:01 [facility] - Psych Medical Decision Making Patient presents here with suicidal ideations patient is medically cleared spoke to psychiatrist who knows patient will admit to the psych smiley. Medical Records I reviewed the patient's medical records. Lab Data I reviewed the patient's lab results. 12/05/23 18:30 12/05/23 18:14 Laboratory Results WBC 9.25 10^3/uL (3.29-11.43) 12/05/23 18:30 RBC 5.06 10^6/uL (3.85-5.65) 12/05/23 18:30 Hgb 15.30 g/dL (11.27-16.99) 12/05/23 18:30 Hct 44.6 % (37-53) 12/05/23 18:30 MCV 88.1 fl (82-101) 12/05/23 18:30 MCH 30.2 pg (27-33) 12/05/23 18: MCHC 34.3 g/dL (30-55) 12/05/23 18:30 RDW 12.5 % (12.1-15.1) 12/05/23 18:30 Plt Count 219 10^3/cmm (157-399) 12/05/23 18:30 MPV 8.8 fL (7.4-10.4) 12/05/23 18:30 Neut % (Auto) 53.7 % 12/05/23 18:30 Lymph % (Auto) 36.8 % 12/05/23 18:30 [place] % (Auto) 5.3 % 12/05/23 18:30 Eos % (Auto) 3.4 % 12/05/23 18:30 Baso % (Auto) 0.6 % 12/05/23 18:30 Neut # (Auto) 4.97 10^3/uL (1.8-7.7) 12/05/23 18:30 Lymph # (Auto) 3.4 10^3/uL (0.8-4.8) 12/05/23 18:30 [place] # (Auto) 0.5 10^3/uL (0.2-0.9) 12/05/23 18:30 Eos # (Auto) 0.3 10^3/uL (0.0-0.8) 12/05/23 18:30 Baso # (Auto) 0.1 10^3/uL (0.0-0.1) 12/05/23 18:30 Nucleated RBC % (auto) 0 % 12/05/23 18:30 Nucleated RBCs # 0.0 /100WBC 12/05/23 18:30 Sodium 139 mmol/L (136-145) 12/05/23 18:14 Potassium 3.2 mmol/L (3.5-5.1) L 12/05/23 18:14 Chloride 105 mmol/L (98-107) 12/05/23 18:14 Carbon Dioxide 20 mmol/L (22-29) L 12/05/23 18:14 Anion Gap 17.2 (5-19) 12/05/23 18:14 BUN 16 mg/dL (6-20) 12/05/23 18:14 Creatinine 1.0 mg/dL (0.7-1.2) 12/05/23 18:14 GFR Calculation 83.2 mL/min (90-130) L 12/05/23 18:14 Glucose 111 mg/dL (65-115) 12/05/23 18:14 Calculated Osmolality 290 mOsm/kg (285-295) 12/05/23 18:14 Calcium 9.1 mg/dL (8.5-10.5) 12/05/23 18:14 Total Bilirubin 0.3 mg/dL (0.15-1.2) 12/05/23 18:14 AST 45 U/L (0-40) H 12/05/23 18:14 ALT 72 U/L (0-41) H 12/05/23 18:14 Alkaline Phosphatase 75 U/L (40-130) 12/05/23 18:14 Total Protein 7.8 g/dL (6.6-8.7) 12/05/23 18:14 Albumin 4.3 g/dL (3.5-5.2) 12/05/23 18:14 Globulin 3.5 g/dL (1.3-4.6) 12/05/23 18:14 Salicylates < 0.3 mg/dL (3-10) L 12/05/23 18:14 Acetaminophen < 5.0 ug/mL (10-30) L 12/05/23 18:14 Ethyl Alcohol < 10 mg/dL (0-10) 12/05/23 18:14 No radiology studies performed this visit Discharge Plan Discharge Patient Disposition: Admitted As Inpatient Admit Provider: Nasir Dexter Clinical Impression: Suicidal ideation Condition: Stable Coding Level of Care Code ED Textile Examiner for Aby Dixon
[2023-12-05 18:35] LABS: Basophils # 0.1 10^3/uL (0.0-0.1); Basophils % 0.6 %; Eosinophils # 0.3 10^3/uL (0.0-0.8); Eosinophils % 3.4 %; Hematocrit 44.6 % (37-53); Lymphocytes # 3.4 10^3/uL (0.8-4.8); Lymphocytes % 36.8 %; Mean Corpuscular HGB Conc 34.3 g/dL (30-55); Mean Corpuscular Hemoglobin 30.2 pg (27-33); Mean Corpuscular Volume 88.1 fl (82-101); Mean Platelet Volume 8.8 fL (7.4-10.4); Monocytes # 0.5 10^3/uL (0.2-0.9); Monocytes % 5.3 %; Neutrophils # 4.97 10^3/uL (1.8-7.7); Neutrophils % 53.7 %; Nucleated Red Blood Cells % 0 %; Platelet Count 219 10^3/cmm (157-399); Red Blood Count 5.06 10^6/uL (3.85-5.65); Red Cell Distribution Width 12.5 % (12.1-15.1); White Blood Count 9.25 10^3/uL (3.29-11.43)
[2023-12-05 18:46] LABS: Acetaminophen < 5.0 ug/mL (10-30); Alanine Aminotransferase 72 U/L (0-41); Albumin Level 4.3 g/dL (3.5-5.2); Alcohol Level < 10 mg/dL (0-10); Alkaline Phosphatase 75 U/L (40-130); Anion Gap 17.2 (5-19); Aspartate Amino Transferase 45 U/L (0-40); Blood Urea Nitrogen 16 mg/dL (6-20); Calcium 9.1 mg/dL (8.5-10.5); Carbon Dioxide 20 mmol/L (22-29); Chloride 105 mmol/L (98-107); Globulin 3.5 g/dL (1.3-4.6); Glomerular Filtration Rate 83.2 mL/min (90-130); Glucose 111 mg/dL (65-115); Osmolality Calculated 290 mOsm/kg (285-295); Potassium 3.2 mmol/L (3.5-5.1); Salicylate < 0.3 mg/dL (3-10); Sodium 139 mmol/L (136-145); Total Bilirubin 0.3 mg/dL (0.15-1.2); Total Protein 7.8 g/dL (6.6-8.7)
[2023-12-05 19:07] VITALS: BP 169/132; PULSE 116; RESP 20; TEMP 36.7; O2SAT 98
[2023-12-05] MEDS: metoprolol succinate ER (24 HR) 50 mg Tablet PO (19:19)
[2023-12-05] MEDS: nicotine 2 mg Gum BUCCAL ×2 (19:37→21:36)
[2023-12-05 19:56] VITALS: BP 164/116
[2023-12-05] MEDS: amlodipine 10 mg Tablet PO (20:09)
[2023-12-05] MEDS: lisinopril 20 mg Tablet PO (20:09)
[2023-12-05] MEDS: trazodone 50 mg Tablet PO (20:09)
[2023-12-05 20:58] LABS: Amphetamines Screen Urine Negative (Negative); Barbiturates Screen Urine Negative (Negative); Benzodiazepines Screen Urine Negative (Negative); Cocaine Screen Urine Negative (Negative); Opiate Screen Urine Negative (Negative); PCP Screen Urine Negative (Negative); THC Screen Urine Positive (Negative)
[2023-12-05 21:20] VITALS: BP 170/132
[2023-12-06 00:18] VITALS: BP 164/124
[2023-12-06 06:00] VITALS: BP 91/53; PULSE 73; RESP 16; O2SAT 94
[2023-12-06] MEDS: hydroCHLOROthiazide 25 mg Tablet PO (08:14)
[2023-12-06] MEDS: lisinopril 20 mg Tablet PO ×2 (08:14→19:40)
[2023-12-06] MEDS: amlodipine 10 mg Tablet PO ×2 (08:14→19:40)
--- NOTE | 2023-12-06 09:18 | PC.OT ---
OT EVALUATION ORDERS RECEIVED; PATIENT SLEEPING SOUNDLY; UNABLE TO AWAKEN. WILL ATTEMPT AGAIN AT A LATER TIME
[2023-12-06] MEDS: nicotine 2 mg Gum BUCCAL ×4 (10:25→18:38)
--- NOTE | 2023-12-06 13:55 | W.PM.NPUH&PS ---
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 were intact and memory appeared mostly reliable but none were formally tested.? He is alert and oriented x3.? Insight and judgment appear limited and impulse control is impaired. Vitals/I&O/Wt Last Vital Signs Temp 98.0 F 12/05/23 19:07 Pulse 73 12/06/23 06:00 Resp 16 12/06/23 06:00 BP 91/53 12/06/23 06:00 Pulse Ox 94 12/06/23 06:00 O2 Del Method Room Air 12/06/23 06:00 Weight last 48 hrs Weight 162.386 kg Data NPU 12/05/23 18:30 12/05/23 18:14 A&P Assessment and plan (1) Suicidal ideation: (2) Schizoaffective disorder: (3) Cannabis dependence, episodic use: Plan This is a 37-year-old white male with a long history of trauma, addiction and suicidal thoughts who presents with addiction in remission and recent nonadherence with meds reporting despair and suicidal ideation 1.? Restart Invega Sustenna. Likely loading dose tomorrow once we can confirm last injection. 2.? Continue every 15 minute checks for safety. 3.? Encourage individual, group and milieu therapies. 4. Encourage sober living treatment after discharge at the highest level of care to which he is willing to commit. 5. Considerable concerns for malingering. Involuntary Hold Information 96 Hour Hold: 96 Hour Involuntary Admission: No 96 Hour Hold Ending Date: 11/12/21 96 Hour Hold Ending Time: 20:29 Attestations NPU Medical Necessity Statement*: Inpatient hospitalization is medically necessary and the clinically appropriate intervention at this time. We will monitor medications and make changes as indicated. Patient will be in the hospital for over two midnights. Likely length of stay 3-5 days. Coding Level of Care Code Acute Code for Chg Fwd Diagnoses Suicidal ideation R45.851 Schizoaffective disorder F25.9 Cannabis dependence, episodic use F12.20
[2023-12-06 14:00] VITALS: BP 129/90; PULSE 76; RESP 16; TEMP 36.6; O2SAT 96
[2023-12-06] MEDS: trazodone 50 mg Tablet PO (19:40)
[2023-12-06 20:27] VITALS: BP 129/91; PULSE 93; RESP 18; O2SAT 96
[2023-12-07 06:00] VITALS: BP 120/70; PULSE 70; RESP 17; O2SAT 95
--- NOTE | 2023-12-07 06:56 | P.NPUPN_ITS ---
Subjective NPU 2 Subjective: Patient presented today essentially unchanged. We discussed the risks, benefits and alternatives of restarting his medications including the Invega Sustenna. We agreed to give a 234 mg IM loading dose. He understood and agreed to proceed as is documented in this note. He continued to endorse lethality and feeling hopeless in the situation. We discussed that being in a situation could feel hopeless and he was encouraged to work with the social work team to identify what options exist to assist him in getting back in a reasonable situation. Mental Status Exam 2 MSE Comments: This is an obese versus morbidly obese white male in hospital scrubs with limited grooming and eye contact.? No abnormal movements except for mild psychomotor retardation.? Cooperative with exam in mild distress.? Speech was slightly decreased rate and volume.? Mood described as depressed and wanting to end it, affect congruent.? Thought process organized.? Thought content: Patient endorsed suicidal ideation and denied homicidal ideation, there were no delusions reported or noted, he denied any auditory or visual hallucinations.? Attention and concentration were intact and memory appeared mostly reliable but none were formally tested.? He is alert and oriented x3.? Insight and judgment appear limited and impulse control is impaired. Vitals/I&O/Wt Last Vital Signs Temp 98 F 12/06/23 14:00 Pulse 70 12/07/23 06:00 Resp 17 12/07/23 06:00 BP 120/70 12/07/23 06:00 Pulse Ox 95 12/07/23 06:00 O2 Del Method Room Air 12/07/23 06:00 Weight last 48 hrs Weight 162.386 kg Data NPU 12/05/23 18:30 12/05/23 18:14 A&P Assessment and plan (1) Suicidal ideation: (2) Schizoaffective disorder: (3) Cannabis dependence, episodic use: Plan This is a 37-year-old white male with a long history of trauma, addiction and suicidal thoughts who presents with addiction in remission and recent nonadherence with meds reporting despair and suicidal ideation 1.? Restart Invega Sustenna 234 mg IM to the deltoid as it is a loading dose. Consider oral Invega. 2.? Continue every 15 minute checks for safety. 3.? Encourage individual, group and milieu therapies. 4. Encourage sober living treatment after discharge at the highest level of care to which he is willing to commit. 5. Considerable concerns for malingering. Encouraged patient to work with social work team on discharge options Involuntary Hold Information 2 96 Hour Hold: 96 Hour Involuntary Admission: No 96 Hour Hold Ending Date: 01/13/21 96 Hour Hold Ending Time: 20:29 Attestations NPU 2 Medical Necessity Statement*: Inpatient hospitalization is medically necessary and the clinically appropriate intervention at this time. We will monitor medications and make changes as indicated. Likely length of stay 2-4 days. Coding Level of Care Code Acute Code for Chg Fwd Diagnoses Suicidal ideation R45.851 Schizoaffective disorder F25.9 Cannabis dependence, episodic use F12.20
[2023-12-07] MEDS: lisinopril 20 mg Tablet PO ×2 (08:36→19:41)
[2023-12-07] MEDS: hydroCHLOROthiazide 25 mg Tablet PO (08:36)
[2023-12-07] MEDS: amlodipine 10 mg Tablet PO ×2 (08:36→19:41)
[2023-12-07] MEDS: nicotine 2 mg Gum BUCCAL ×5 (11:16→21:04)
[2023-12-07 14:00] VITALS: BP 132/77; PULSE 88; RESP 13; TEMP 36.6; O2SAT 92
[2023-12-07] MEDS: paliperidone palmitate 234 mg Syringe IM (15:32)
--- NOTE | 2023-12-07 15:35 | PC.NURSE ---
Administered Invega 234mg IM into left deltoid. Patient calm and cooperative, tolerated well.
[2023-12-07] MEDS: acetaminophen 325 mg Tablet 650 MG PO (17:09)
[2023-12-07] MEDS: trazodone 50 mg Tablet PO ×2 (19:41→21:58)
[2023-12-07] MEDS: ibuprofen 600 mg Tablet PO (19:42)
[2023-12-07 20:09] VITALS: BP 151/93; PULSE 96; RESP 20; TEMP 36.8; O2SAT 97
[2023-12-07] MEDS: hyDROXYzine 25 mg Capsule 50 MG PO (21:58)
[2023-12-08 06:00] VITALS: BP 125/68; PULSE 86; RESP 16; O2SAT 95
[2023-12-08] MEDS: lisinopril 20 mg Tablet PO (08:39)
[2023-12-08] MEDS: amlodipine 10 mg Tablet PO (08:39)
[2023-12-08] MEDS: hydroCHLOROthiazide 25 mg Tablet PO (08:39)
[2023-12-08] MEDS: nicotine 2 mg Gum BUCCAL ×2 (11:32→13:29)
--- NOTE | 2023-12-08 11:46 | P.NPUPN_ITS ---
Mental Status Exam 2 [facility] Comments: This is an obese versus morbidly obese white male in hospital scrubs with limited grooming and eye contact.? No abnormal movements except for mild psychomotor retardation.? Cooperative with exam in mild distress.? Speech was slightly decreased rate and volume.? Mood described as depressed and wanting to end it, affect congruent.? Thought process organized.? Thought content: Patient endorsed suicidal ideation and denied homicidal ideation, there were no delusions reported or noted, he denied any auditory or visual hallucinations.? Attention and concentration were intact and memory appeared mostly reliable but none were formally tested.? He is alert and oriented x3.? Insight and judgment appear limited and impulse control is impaired. Vitals/I&O/Wt Last Vital Signs Temp 98.2 F 12/07/23 20:09 Pulse 86 12/08/23 06:00 Resp 16 12/08/23 06:00 BP 125/68 12/08/23 06:00 Pulse Ox 95 12/08/23 06:00 O2 Del Method Room Air 12/08/23 06:00 Data NPU 12/05/23 18:30 12/05/23 18:14 A&P Assessment and plan (1) Suicidal ideation: (2) Schizoaffective disorder: (3) Cannabis dependence, episodic use: Plan This is a 37-year-old white male with a long history of trauma, addiction and suicidal thoughts who presents with addiction in remission and recent nonadherence with meds reporting despair and suicidal ideation 1.? Restart Invega Sustenna 234 mg IM to the deltoid as it is a loading dose 12/07/2023. Consider oral Invega. 2.? Continue every 15 minute checks for safety. 3.? Encourage individual, group and milieu therapies. 4. Encourage sober living treatment after discharge at the highest level of care to which he is willing to commit. 5. Considerable concerns for malingering. Encouraged patient to work with social work team on discharge options Involuntary Hold Information 2 96 Hour Hold: 96 Hour Involuntary Admission: No 96 Hour Hold Ending Date: 01/13/21 96 Hour Hold Ending Time: 20:29 Attestations NPU 2 Medical Necessity Statement*: Inpatient hospitalization is medically necessary and the clinically appropriate intervention at this time. We will monitor medications and make changes as indicated. Likely length of stay 1-3 days. Coding Level of Care Code Acute Code for Chg Fwd Diagnoses Suicidal ideation R45.851 Schizoaffective disorder F25.9 Cannabis dependence, episodic use F12.20
--- NOTE | 2023-12-08 14:07 | W.PM.NPUDCS ---
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 Phencyclidine S crn Negative ng/mL (N egative) 12/05/23 20:19 Ur Amphetamines Sc reen Negative ng/mL (N egative) 12/05/23 20:19 U Benzodiazepines Scrn Negative ng/mL (N egative) 12/05/23 20:19 Urine Cocaine Scre en Negative ng/mL (N egative) 12/05/23 20:19 U Marijuana (THC) Screen Positive ng/mL (N egative) H 12/05/23 20:19 Ethyl Alcohol < 10 mg/dL (0-10) 01/07/24 18:14 Vitals: Last Vital Signs Temp 98.2 F 12/07/23 20:09 Pulse 86 12/08/23 06:00 Resp 16 12/08/23 06:00 BP 125/68 12/08/23 06:00 Pulse Ox 95 12/08/23 06:00 O2 Del Method Room Air 12/08/23 06:00 Discharge Plan Discharge Patient Disposition: Home Condition: Stable Prescriptions: Continued amlodipine 10 mg Tablet 10 mg PO BID 30 Days Qty: 60 1RF lisinopril 20 mg tablet 20 mg PO BID Qty: 180 1RF hydrochlorothiazide 25 mg Tablet 25 mg PO DAILY 30 Days Qty: 120 1RF Invega Sustenna 156 mg/mL syringe 156 mg IM Q30D Qty: 1 2RF Rx Instructions: Next loading dose IM 12/14/2023 IM deltoid then as directed Discontinued Invega Sustenna 234 mg/1.5 mL syringe 234 mg IM Q30D Qty: 1.5 6RF Rx Instructions: Monthly injection No Action gabapentin 600 mg tablet 300 mg PO BEDTIME 30 Days Qty: 15 3RF Rx Instructions: Take half tablet at bedtime Discharge Orders: Discharge Order (Routine); Ordered 12/08/23 Ordered By: Nasir Dexter Referrals: Drake Hernandez, [Primary Care Provider] - Colette Jeong PMHNP [Staff Physician] - 12/09/23 12:45 pm Discharge Diet: Regular Discharge Activity: Resume usual activity Patient Instructions: Trazodone (By mouth), Paliperidone (By injection) (Invega Sustenna, Invega Trinza, Invega..., Suicide Prevention (DC), Opioid Safety Discharge Attestations NPU Time Spent in Discharge Care*: less than 30 min Specific Discharge Activities: Specific discharge activities: educating patient, discussing with counter caser/social workers/dc planners, documenting/other paperwork and evaluating patient/reviewing data Coding Level of Care Code Acute Code for Chg Fwd Diagnoses Depression F33.2 Active/Remission status: currently active Depression Type: major depressive disorder Major depression episode severity: severe Major depression recurrence: recurrent Psychotic features: without psychotic features Suicidal ideation R45.851 Cannabis dependence, episodic use F12.20
[2023-12-08 14:25] VITALS: BP 125/68; PULSE 86; RESP 16; O2SAT 95
== END 2023-12-08 14:51 | disposition home or self-care (01) | DRG 885 ==
LOC: ER 18:40 → NP 18:43
PROVIDERS: Admitting Provider Psychiatry & Neurology Psychiatry; Emergency Provider Emergency Medicine; PCP Family Medicine; Visit Provider Psychiatry & Neurology Psychiatry
DX: F33.2 Major depressive disorder, recurrent severe without psychotic features (principal); R45.851 Suicidal ideations; Z59.00 Homelessness unspecified; F12.20 Cannabis dependence, uncomplicated; Z91.138 Patient's unintentional underdosing of medication regimen for other reason; F17.290 Nicotine dependence, other tobacco product, uncomplicated
CPT/HCPCS: 36415; 80053; 80306; 80307; 85025; 96372; 97150; 97165; 99285

== ENCOUNTER 2023-12-17 17:24 | Emergency (ER) | payer OTHER, MEDICAID, SELFPAY ==
[2023-12-06 11:13] VITALS: BP 157/109; BMI 43.6
[2023-12-17 17:28] VITALS: BP 182/141; PULSE 92; RESP 16; TEMP 36.7; O2SAT 99
[2023-12-17 17:55] VITALS: BP 149/99; PULSE 98; RESP 16; O2SAT 98
--- NOTE | 2023-12-17 18:21 | W.ED.GENADLT ---
HPI - General Adult General: Chief complaint: General Medical Stated complaint: sent over by dr ley bp Time Seen by Provider: 12/17/23 18:08 Source: patient Mode of arrival: ambulatory Limitations: no limitations History of Present Illness: 38-year-old male who was sent over from [facility] for blood pressure check he has known history of hypertension he is on meds for his high blood pressure at home he denies any symptoms denies chest pain denies headache Associated symptoms: Deny chest pain, dyspnea, headache(s), nausea, rash or vomiting Review of Systems Const: Denies: fever(s) or chills ENMT: Denies: throat pain or dental pain Card: Denies: chest pain Resp: Denies: dyspnea GI: Denies: abdominal pain, nausea, vomiting or diarrhea Musc: Denies: neck pain or back pain Skin/Breast: Denies: rash Neuro: Denies: headache(s) PFS ED PFSH: Medical History Cannabis dependence, episodic use Schizoaffective disorder, depressive type HTN (hypertension) History of substance use disorder last use of alcohol reported as February 2023 last use of opiates and methamphetamines reported 2017 History of attention deficit hyperactivity disorder (ADHD) Idiopathic mild intellectual disability Chronic post-traumatic stress disorder Clinical diagnosis of COVID-19 Surgical History S/P knee surgery No pertinent past surgical history Family History Other Diabetes Family history of premature coronary artery disease Psychiatric illness Social History Smoking and tobacco/nicotine status: current every day tobacco/nicotine user e-cigarettes E-Cigarette Details: with nicotine E-cig/vape details: 6% one 8,000 puff POD lasts maybe one week Quit status (tobacco/nicotine): not considering quitting Second hand smoke exposure: Yes Alcohol intake: former Former alcohol use details: or 2020 Substance/Drug Use: current Substance/Drug use frequency: few times a month Other substance/drug use details: only when available Adopted: No Caregiver/support person: No Lives independently: Yes Household members: other Details: homeless but stay with a friend Housing: House Marital status: Legally Number of children: 2 Number of grandchildren: 0 Highest education level completed: Some College, No Degree service: No Current occupational status: unemployed Current occupational exposures/hazards: No Pets and animals: Yes Pets & animals: dog(s) Leisure activites: other Leisure activities details: social media Sexually active: No Do you think of yourself as: Straight/Heterosexual Current gender identity: Male Stephany/Protestant: Jain Special stephany needs: No Agree to transfusion: Yes Physical Exam Const: COMMON NORMALS: no acute distress, patient oriented x3 and healthy appearing HENMT: COMMON NORMALS: normocephalic and atraumatic HEAD & SCALP: normocephalic and atraumatic Eye: COMMON NORMALS: Equal, round and reactive pupils present and EOMs intact bilaterally PUPIL: Yes Equal, round and reactive pupils present Neck/C-Spine: COMMON NORMALS: full ROM and supple Chest: COMMONS NORMALS: normal inspection of the chest and normal palpation of entire chest wall Resp: COMMON NORMALS: normal respiratory effort, No retractions, No use of accessory muscles and clear to auscultation bilaterally AUSCULTATION: clear to auscultation bilaterally Cardio: COMMON NORMALS: regular rate, regular rhythm and No murmurs present (Cardio) RATE: regular rate RHYTHM: regular rhythm GI: COMMON NORMALS: Normal to inspection, nondistended, normoactive bowel sounds present, Soft to palpation, non-tender and no masses PALPATION: Yes Soft to palpation Extremity: COMMON NORMALS: normal to inspection and full ROM Neuro: COMMON NORMALS: patient oriented x3, moves all extremities and no focal motor deficits Psych: COMMON NORMALS: mental status grossly normal, Normal thought process present and cooperative THOUGHT PROCESS: Normal thought process present Skin: COMMON NORMALS: no rashes or lesions noted and no wounds GENERAL SKIN EXAM: no rashes or lesions noted Course Vital Signs: Vital signs: Vital Signs Temperature 98.1 F 12/17/23 17:28 Pulse Rate 98 12/17/23 17:55 Respiratory Rate 16 12/17/23 17:55 Blood Pressure 149/99 12/17/23 17:55 Pulse Oximetry 98 12/17/23 17:55 Oxygen Delivery Me thod Room Air 12/17/23 17:55 MDM - General Adult Medical Decision Making Patient presents here with hypertension patient is well-appearing here he is asymptomatic he is stable for discharge. Medical Records I reviewed the patient's medical records. No radiology studies performed this visit Discharge Plan Discharge Patient Disposition: Home Clinical Impression: HTN (hypertension) Condition: Stable Prescriptions: No Action gabapentin 600 mg tablet 300 mg PO BEDTIME 30 Days Qty: 15 3RF Rx Instructions: Take half tablet at bedtime amlodipine 10 mg Tablet 10 mg PO BID 30 Days Qty: 60 1RF lisinopril 20 mg tablet 20 mg PO BID Qty: 180 1RF hydrochlorothiazide 25 mg Tablet 25 mg PO DAILY 30 Days Qty: 120 1RF Invega Sustenna 156 mg/mL syringe 156 mg IM Q30D Qty: 1 2RF Rx Instructions: Next loading dose IM 12/14/2023 IM deltoid then as directed Discharge Orders: Discharge ED (Routine); Ordered 12/17/23 Ordered By: Bethany Carl Referrals: Drake Hernandez, [Primary Care Provider] - Discharge Diet: Advance as tolerated Discharge Activity: Resume usual activity Patient Instructions: Hypertension (ED) Coding Level of Care Code ED Strainer Cleaner for Aby Dixon
[2023-12-17 18:39] VITALS: BP 149/97; PULSE 93; O2SAT 98
== END 2023-12-17 18:40 | disposition home or self-care (01) ==
PROVIDERS: Emergency Provider Emergency Medicine; PCP Family Medicine
DX: I10 Essential (primary) hypertension (principal); Z72.0 Tobacco use
CPT/HCPCS: 99281

== ENCOUNTER 2024-01-02 22:18 | Inpatient (IN) | payer MEDICAID, SELFPAY ==
[2023-12-06 11:13] VITALS: BP 157/109; BMI 43.6
[2024-01-02 22:28] VITALS: BP 176/117; PULSE 128; RESP 16; TEMP 36.8; O2SAT 96; BMI 43.7
--- NOTE | 2024-01-02 22:28 | W.ED.PSYCHS ---
Documented by User: CURT South 01/02/24 23:22 HPI - Psych General: Chief Complaint: Psychiatric Symptoms Stated Complaint: SI Time Seen by Provider: 01/02/24 22:28 History of Present Illness: 38-year-old male patient comes in today with complaints of suicidal thoughts. Patient has a history of suicidal ideation, major depressive disorder, and schizoaffective disorder. [facility] complaints. Patient has some superficial linear flores to his left forearm which he reports he used a steel box toe inserter to cut himself. Patient said he did this instead of using methamphetamines. Patient reports that he has been using his prescription medications as directed for his blood pressure and psychiatric disorder. Patient has had 1 shot of Invega since being [facility] and is to be scheduled for another injection soon. complaint: suicidal ideation Onset (ago): day(s) Duration: getting worse History of same: Yes Relieving factors: other (Using methamphetamines) Exacerbating factors: none Context: other (Homelessness) Associated psychiatric symptoms: depression Associated symptoms: Reports depression and suicidal ideation Treatments prior to arrival: none If self harm: admits thoughts of self harm and has plan (Cutting his wrist) Review of Systems General: Reports: 10 or more systems reviewed and unremarkable except in HPI and below Psych: Reports: depression and suicidal ideation [facility] ED PFSH: Medical History Cannabis dependence, episodic use Schizoaffective disorder, depressive type HTN (hypertension) History of substance use disorder last use of alcohol reported as February 2023 last use of opiates and methamphetamines reported 2017 History of attention deficit hyperactivity disorder (ADHD) Idiopathic mild intellectual disability Chronic post-traumatic stress disorder Clinical diagnosis of COVID-19 Surgical History S/P knee surgery No pertinent past surgical history Family History Other Diabetes Family history of premature coronary artery disease Psychiatric illness Social History Smoking and tobacco/nicotine status: current every day tobacco/nicotine user e-cigarettes E-Cigarette Details: with nicotine E-cig/vape details: 6% one 8,000 puff POD lasts maybe one week Quit status (tobacco/nicotine): not considering quitting Second hand smoke exposure: Yes Alcohol intake: former Former alcohol use details: or 2020 Substance/Drug Use: current Substance/Drug use frequency: few times a month Other substance/drug use details: only when available Adopted: No Caregiver/support person: No Lives independently: Yes Household members: other Details: homeless but stay with a friend Housing: House Marital status: Legally Number of children: 2 Number of grandchildren: 0 Highest education level completed: Some College, No Degree service: No Current occupational status: unemployed Current occupational exposures/hazards: No Pets and animals: Yes Pets & animals: dog(s) Leisure activites: other Leisure activities details: social media Sexually active: No Do you think of yourself as: Straight/Heterosexual Current gender identity: Male Stephany/Scientologist: Sikh Special stephany needs: No Agree to transfusion: Yes Physical Exam Const: COMMON NORMALS: alert HENMT: COMMON NORMALS: normocephalic HEAD & SCALP: normocephalic Neck/C-Spine: COMMON NORMALS: full ROM Resp: COMMON NORMALS: normal respiratory effort and clear to auscultation bilaterally AUSCULTATION: clear to auscultation bilaterally Cardio: COMMON NORMALS: regular rate and regular rhythm RATE: regular rate RHYTHM: regular rhythm GI: COMMON NORMALS: non-tender : COMMON NORMALS: Yes no CVA tenderness BLADDER/KIDNEY EXAM: Yes no CVA tenderness Back/Pelvis: COMMON NORMALS: no CVA tenderness Extremity: COMMON NORMALS: full ROM NARRATIVE EXTREMITY EXAM: Superficial linear horizontal lacerations to the left forearm approximately 10 Neuro: SENSORIUM/ORIENTATION: Yes alert Psych: COMMON NORMALS: cooperative and speech normal APPEARANCE: Yes unkempt ATTITUDE: Yes evasive ACTIVITY/MOTOR BEHAVIOR: Yes Avoids eye contact (attititude/behavior) SPEECH: Yes normal speech MOOD & AFFECT: Yes euthymic mood THOUGHT PROCESS: Circumstantial thought process present THOUGHT CONTENT: Yes Suicidality present MEMORY/COGNITION: Yes memory grossly intact INSIGHT: Fair insight present (Psych) JUDGEMENT: Fair judgement present (Psych) Course Vital Signs: Vital signs: Vital Signs Temperature 98.2 F 01/02/24 22:28 Pulse Rate 128 H 01/02/24 22:28 Respiratory Rate 16 01/02/24 22:28 Blood Pressure 176/117 01/02/24 22:28 Pulse Oximetry 96 01/02/24 22:28 [facility] - Psych Medical Decision Making 38-year-old male patient comes in today with complaints of depression and suicidal ideation. Patient reports that he is going to cut his wrists to hurt himself. Patient has made several superficial linear flores using a steel box toe inserter to his left inner forearm. No significant injuries noted. Vital signs are normal except for some elevated blood pressure and pulse. Differential diagnosis includes not limited to substance use disorder, methamphetamine intoxication, major depressive disorder, schizoaffective disorder, suicidal intent. Discussed patient with Dr. Dexter who agreed to admission to neuropsychiatric unit for further evaluation and treatment of patient's suicidal thoughts. Lab Data 01/02/24 22:48 01/02/24 22:48 Laboratory Results WBC 10.02 10^3/uL (3.29-11.43) 01/02/24 22:48 RBC 5.17 10^6/uL (3.85-5.65) 01/02/24 22:48 Hgb 15.30 g/dL (11.27-16.99) 01/02/24 22:48 Hct 43.8 % (37-53) 01/02/24 22:48 MCV 84.7 fl (82-101) 01/02/24 22:48 MCH 29.6 pg (27-33) 01/02/24 22:48 MCHC 34.9 g/dL (30-55) 01/02/24 22:48 RDW 12.4 % (12.1-15.1) 01/02/24 22:48 Plt Count 248 10^3/cmm (157-399) 01/02/24 22:48 MPV 8.5 fL (7.4-10.4) 01/02/24 22:48 Neut % (Auto) 53.4 % 01/02/24 22:48 Lymph % (Auto) 34.8 % 01/02/24 22:48 [place] % (Auto) 5.9 % 01/02/24 22:48 Eos % (Auto) 5.0 % 01/02/24 22:48 Baso % (Auto) 0.6 % 01/02/24 22:48 Neut # (Auto) 5.35 10^3/uL (1.8-7.7) 01/02/24 22:48 Lymph # (Auto) 3.5 10^3/uL (0.8-4.8) 01/02/24 22:48 [place] # (Auto) 0.6 10^3/uL (0.2-0.9) 01/02/24 22:48 Eos # (Auto) 0.5 10^3/uL (0.0-0.8) 01/02/24 22:48 Baso # (Auto) 0.1 10^3/uL (0.0-0.1) 01/02/24 22:48 Nucleated RBC % (auto) 0 % 01/02/24 22:48 Nucleated RBCs # 0.0 /100WBC 01/02/24 22:48 Sodium 138 mmol/L (136-145) 01/02/24 22:48 Potassium 3.2 mmol/L (3.5-5.1) L 01/02/24 22:48 Chloride 103 mmol/L (98-107) 01/02/24 22:48 Carbon Dioxide 19 mmol/L (22-29) L 01/02/24 22:48 Anion Gap 19.2 (5-19) H 01/02/24 22:48 BUN 12 mg/dL (6-20) 01/02/24 22:48 Creatinine 1.0 mg/dL (0.7-1.2) 01/02/24 22:48 GFR Calculation 83.2 mL/min (90-130) L 01/02/24 22:48 Glucose 120 mg/dL (65-115) H 01/02/24 22:48 Calculated Osmolality 287 mOsm/kg (285-295) 01/02/24 22:48 Calcium 9.4 mg/dL (8.5-10.5) 01/02/24 22:48 Total Bilirubin 0.5 mg/dL (0.15-1.2) 01/02/24 22:48 AST 33 U/L (0-40) 01/02/24 22:48 ALT 54 U/L (0-41) H 01/02/24 22:48 Alkaline Phosphatase 73 U/L (40-130) 01/02/24 22:48 Total Protein 7.9 g/dL (6.6-8.7) 01/02/24 22:48 Albumin 4.4 g/dL (3.5-5.2) 01/02/24 22:48 Globulin 3.5 g/dL (1.3-4.6) 01/02/24 22:48 TSH 1.94 uIU/mL (0.27-4.20) 01/02/24 22:48 Urine Color Yellow (Yellow) 01/02/24 22:43 Urine Appearance Cloudy (CLEAR) A 01/02/24 22:43 Urine pH 5 (5-7) 01/02/24 22:43 Ur Specific Tad 1.025 (1.005-1.030) 01/02/24 22:43 Urine Protein 1+ (Negative) H 01/02/24 22:43 Urine Glucose (UA) Norm (Normal) 01/02/24 22:43 Urine Ketones 2+ (Negative) H 01/02/24 22:43 Urine Blood 2+ (Negative) H 01/02/24 22:43 Urine Nitrate Negative (Negative) 01/02/24 22:43 Urine Bilirubin 1+ (Negative) H 01/02/24 22:43 Urine Urobilinogen 4 mg/dL (Negative) H 01/02/24 22:43 Ur Leukocyte Esterase Trace (Negative) H 01/02/24 22:43 Urine RBC 5-10 /hpf (0-2) H 01/02/24 22:43 Urine WBC 15-25 /hpf (0-5) H 01/02/24 22:43 Ur Squamous Epith Cells 0-4 /hpf (0-5) H 01/02/24 22:43 Amorphous Sediment Not Reportable 01/02/24 22:43 Urine Bacteria 2+ /hpf (NONE) H 01/02/24 22:43 Hyaline Casts 0-4 /lpf H 01/02/24 22:43 Urine Mucus 2+ /hpf 01/02/24 22:43 Salicylates < 0.3 mg/dL (3-10) L 01/02/24 22:48 Urine Opiates Screen Negative ng/mL (Negative) 01/02/24 22:43 Acetaminophen < 5.0 ug/mL (10-30) L 01/02/24 22:48 Ur Barbiturates Screen Negative ng/mL (Negative) 01/02/24 22:43 Ur Phencyclidine Scrn Negative ng/mL (Negative) 01/02/24 22:43 Ur Amphetamines Screen Negative ng/mL (Negative) 01/02/24 22:43 U Benzodiazepines Scrn Negative ng/mL (Negative) 01/02/24 22:43 Urine Cocaine Screen Negative ng/mL (Negative) 01/02/24 22:43 U Marijuana (THC) Screen Positive ng/mL (Negative) H 01/02/24 22:43 Ethyl Alcohol < 10 mg/dL (0-10) 01/02/24 22:48 No radiology studies performed this visit Discharge Plan Discharge Patient Disposition: Admitted As Inpatient Clinical Impression: Suicidal ideation Condition: Stable Coding Level of Care Code ED Irrigation Installation Specialist for Chg Fwd Documented by User: Hao Todd DO 01/02/24 23:26 HPI - Psych General: Chief Complaint: Psychiatric Symptoms Stated Complaint: SI Time Seen by Provider: 01/02/24 22:28 PFSH ED PFSH: Medical History Cannabis dependence, episodic use Schizoaffective disorder, depressive type HTN (hypertension) History of substance use disorder last use of alcohol reported as February 2023 last use of opiates and methamphetamines reported 2017 History of attention deficit hyperactivity disorder (ADHD) Idiopathic mild intellectual disability Chronic post-traumatic stress disorder Clinical diagnosis of COVID-19 Surgical History S/P knee surgery No pertinent past surgical history Family History Other Diabetes Family history of premature coronary artery disease Psychiatric illness Social History Smoking and tobacco/nicotine status: current every day tobacco/nicotine user e-cigarettes E-Cigarette Details: with nicotine E-cig/vape details: 6% one 8,000 puff POD lasts maybe one week Quit status (tobacco/nicotine): not considering quitting Second hand smoke exposure: Yes Alcohol intake: former Former alcohol use details: or 2020 Substance/Drug Use: current Substance/Drug use frequency: few times a month Other substance/drug use details: only when available Adopted: No Caregiver/support person: No Lives independently: Yes Household members: other Details: homeless but stay with a friend Housing: House Marital status: Legally Number of children: 2 Number of grandchildren: 0 Highest education level completed: Some College, No Degree service: No Current occupational status: unemployed Current occupational exposures/hazards: No Pets and animals: Yes Pets & animals: dog(s) Leisure activites: other Leisure activities details: social media Sexually active: No Do you think of yourself as: Straight/Heterosexual Current gender identity: Male Stephany/Scientologist: Sikh Special stephany needs: No Agree to transfusion: Yes Course Vital Signs: Vital signs: Vital Signs Temperature 98.2 F 01/02/24 22:28 Pulse Rate 128 H 01/02/24 22:28 Respiratory Rate 16 01/02/24 22:28 Blood Pressure 176/117 01/02/24 22:28 Pulse Oximetry 96 01/02/24 22:28 [facility] - Psych Medical Decision Making 38-year-old male patient comes in today with complaints of depression and suicidal ideation. Patient reports that he is going to cut his wrists to hurt himself. Patient has made several superficial linear flores using a steel box toe inserter to his left inner forearm. No significant injuries noted. Vital signs are normal except for some elevated blood pressure and pulse. Differential diagnosis includes not limited to substance use disorder, methamphetamine intoxication, major depressive disorder, schizoaffective disorder, suicidal intent. Discussed patient with Dr. Dexter who agreed to admission to neuropsychiatric unit for further evaluation and treatment of patient's suicidal thoughts. This patient was originally seen by CURT Torres.? I agree with his history, evaluation, and treatment. Lab Data 01/02/24 22:48 01/02/24 22:48 Laboratory Results WBC 10.02 10^3/uL (3.29-11.43) 01/02/24 22:48 RBC 5.17 10^6/uL (3.85-5.65) 01/02/24 22:48 Hgb 15.30 g/dL (11.27-16.99) 01/02/24 22:48 Hct 43.8 % (37-53) 01/02/24 22:48 MCV 84.7 fl (82-101) 01/02/24 22:48 MCH 29.6 pg (27-33) 01/02/24 22:48 MCHC 34.9 g/dL (30-55) 01/02/24 22:48 RDW 12.4 % (12.1-15.1) 01/02/24 22:48 Plt Count 248 10^3/cmm (157-399) 01/02/24 22:48 MPV 8.5 fL (7.4-10.4) 01/02/24 22:48 Neut % (Auto) 53.4 % 01/02/24 22:48 Lymph % (Auto) 34.8 % 01/02/24 22:48 [place] % (Auto) 5.9 % 01/02/24 22:48 Eos % (Auto) 5.0 % 01/02/24 22:48 Baso % (Auto) 0.6 % 01/02/24 22:48 Neut # (Auto) 5.35 10^3/uL (1.8-7.7) 01/02/24 22:48 Lymph # (Auto) 3.5 10^3/uL (0.8-4.8) 01/02/24 22:48 [place] # (Auto) 0.6 10^3/uL (0.2-0.9) 01/02/24 22:48 Eos # (Auto) 0.5 10^3/uL (0.0-0.8) 01/02/24 22:48 Baso # (Auto) 0.1 10^3/uL (0.0-0.1) 01/02/24 22:48 Nucleated RBC % (auto) 0 % 01/02/24 22:48 Nucleated RBCs # 0.0 /100WBC 01/02/24 22:48 Sodium 138 mmol/L (136-145) 01/02/24 22:48 Potassium 3.2 mmol/L (3.5-5.1) L 01/02/24 22:48 Chloride 103 mmol/L (98-107) 01/02/24 22:48 Carbon Dioxide 19 mmol/L (22-29) L 01/02/24 22:48 Anion Gap 19.2 (5-19) H 01/02/24 22:48 BUN 12 mg/dL (6-20) 01/02/24 22:48 Creatinine 1.0 mg/dL (0.7-1.2) 01/02/24 22:48 GFR Calculation 83.2 mL/min (90-130) L 01/02/24 22:48 Glucose 120 mg/dL (65-115) H 01/02/24 22:48 Calculated Osmolality 287 mOsm/kg (285-295) 01/02/24 22:48 Calcium 9.4 mg/dL (8.5-10.5) 01/02/24 22:48 Total Bilirubin 0.5 mg/dL (0.15-1.2) 01/02/24 22:48 AST 33 U/L (0-40) 01/02/24 22:48 ALT 54 U/L (0-41) H 01/02/24 22:48 Alkaline Phosphatase 73 U/L (40-130) 01/02/24 22:48 Total Protein 7.9 g/dL (6.6-8.7) 01/02/24 22:48 Albumin 4.4 g/dL (3.5-5.2) 01/02/24 22:48 Globulin 3.5 g/dL (1.3-4.6) 01/02/24 22:48 TSH 1.94 uIU/mL (0.27-4.20) 01/02/24 22:48 Urine Color Yellow (Yellow) 01/02/24 22:43 Urine Appearance Cloudy (CLEAR) A 01/02/24 22:43 Urine pH 5 (5-7) 01/02/24 22:43 Ur Specific Tad 1.025 (1.005-1.030) 01/02/24 22:43 Urine Protein 1+ (Negative) H 01/02/24 22:43 Urine Glucose (UA) Norm (Normal) 01/02/24 22:43 Urine Ketones 2+ (Negative) H 01/02/24 22:43 Urine Blood 2+ (Negative) H 01/02/24 22:43 Urine Nitrate Negative (Negative) 01/02/24 22:43 Urine Bilirubin 1+ (Negative) H 01/02/24 22:43 Urine Urobilinogen 4 mg/dL (Negative) H 01/02/24 22:43 Ur Leukocyte Esterase Trace (Negative) H 01/02/24 22:43 Urine RBC 5-10 /hpf (0-2) H 01/02/24 22:43 Urine WBC 15-25 /hpf (0-5) H 01/02/24 22:43 Ur Squamous Epith Cells 0-4 /hpf (0-5) H 01/02/24 22:43 Amorphous Sediment Not Reportable 01/02/24 22:43 Urine Bacteria 2+ /hpf (NONE) H 01/02/24 22:43 Hyaline Casts 0-4 /lpf H 01/02/24 22:43 Urine Mucus 2+ /hpf 01/02/24 22:43 Salicylates < 0.3 mg/dL (3-10) L 01/02/24 22:48 Urine Opiates Screen Negative ng/mL (Negative) 01/02/24 22:43 Acetaminophen < 5.0 ug/mL (10-30) L 01/02/24 22:48 Ur Barbiturates Screen Negative ng/mL (Negative) 01/02/24 22:43 Ur Phencyclidine Scrn Negative ng/mL (Negative) 01/02/24 22:43 Ur Amphetamines Screen Negative ng/mL (Negative) 01/02/24 22:43 U Benzodiazepines Scrn Negative ng/mL (Negative) 01/02/24 22:43 Urine Cocaine Screen Negative ng/mL (Negative) 01/02/24 22:43 U Marijuana (THC) Screen Positive ng/mL (Negative) H 01/02/24 22:43 Ethyl Alcohol < 10 mg/dL (0-10) 01/02/24 22:48 Discharge Plan Discharge Patient Disposition: Admitted As Inpatient Clinical Impression: Suicidal ideation Condition: Stable Coding Level of Care Code ED Irrigation Installation Specialist for Aby Dixon
[2024-01-02 22:51] LABS: Basophils # 0.1 10^3/uL (0.0-0.1); Basophils % 0.6 %; Eosinophils # 0.5 10^3/uL (0.0-0.8); Hematocrit 43.8 % (37-53); Lymphocytes # 3.5 10^3/uL (0.8-4.8); Lymphocytes % 34.8 %; Mean Corpuscular HGB Conc 34.9 g/dL (30-55); Mean Corpuscular Hemoglobin 29.6 pg (27-33); Mean Corpuscular Volume 84.7 fl (82-101); Mean Platelet Volume 8.5 fL (7.4-10.4); Monocytes # 0.6 10^3/uL (0.2-0.9); Monocytes % 5.9 %; Neutrophils # 5.35 10^3/uL (1.8-7.7); Neutrophils % 53.4 %; Nucleated Red Blood Cells % 0 %; Platelet Count 248 10^3/cmm (157-399); Red Blood Count 5.17 10^6/uL (3.85-5.65); Red Cell Distribution Width 12.4 % (12.1-15.1); White Blood Count 10.02 10^3/uL (3.29-11.43)
[2024-01-02 22:57] LABS: Add Urine Microscopic? YES
[2024-01-02 22:58] LABS: Bilirubin Urine 1+ (Negative); Blood Urine 2+ (Negative); Glucose Urine UA Norm (Normal); Ketones Urine 2+ (Negative); Leukocyte Esterase Urine Trace (Negative); Nitrate Urine Negative (Negative); Protein Urine 1+ (Negative); Specific Gravity, Urine 1.025 (1.005-1.030); Urine Appearance Cloudy (CLEAR); Urine Color Yellow (Yellow); Urobilinogen Urine 4 mg/dL (Negative); pH Urine 5 (5-7)
[2024-01-02 22:59] LABS: Squamous Epithelial Cell Urine 0-4 /hpf (0-5); WBC Urine 15-25 /hpf (0-5)
[2024-01-02 23:00] LABS: Bacteria Urine 2+ /hpf; Hyaline Casts Urine 0-4 /lpf; Mucus Urine 2+ /hpf
[2024-01-02 23:01] LABS: Add Urine Culture? Yes; Amphetamines Screen Urine Negative (Negative); Barbiturates Screen Urine Negative (Negative); Benzodiazepines Screen Urine Negative (Negative); Cocaine Screen Urine Negative (Negative); Opiate Screen Urine Negative (Negative); PCP Screen Urine Negative (Negative); THC Screen Urine Positive (Negative)
[2024-01-02 23:19] LABS: Alanine Aminotransferase 54 U/L (0-41); Albumin Level 4.4 g/dL (3.5-5.2); Alkaline Phosphatase 73 U/L (40-130); Anion Gap 19.2 (5-19); Aspartate Amino Transferase 33 U/L (0-40); Blood Urea Nitrogen 12 mg/dL (6-20); Calcium 9.4 mg/dL (8.5-10.5); Carbon Dioxide 19 mmol/L (22-29); Chloride 103 mmol/L (98-107); Globulin 3.5 g/dL (1.3-4.6); Glomerular Filtration Rate 83.2 mL/min (90-130); Glucose 120 mg/dL (65-115); Osmolality Calculated 287 mOsm/kg (285-295); Potassium 3.2 mmol/L (3.5-5.1); Sodium 138 mmol/L (136-145); Thyroid Stimulating Hormone 1.94 uIU/mL (0.27-4.20); Total Bilirubin 0.5 mg/dL (0.15-1.2); Total Protein 7.9 g/dL (6.6-8.7)
[2024-01-02 23:24] LABS: Acetaminophen < 5.0 ug/mL (10-30); Alcohol Level < 10 mg/dL (0-10); Salicylate < 0.3 mg/dL (3-10)
[2024-01-02] MEDS: lisinopril 20 mg Tablet PO (23:32)
[2024-01-02] MEDS: hydroCHLOROthiazide 25 mg Tablet PO (23:33)
[2024-01-02] MEDS: potassium chloride ER 20 mEq Tablet 40 MEQ PO (23:55)
[2024-01-02 23:56] VITALS: PULSE 120; O2SAT 96
[2024-01-02 23:59] VITALS: BP 176/116
[2024-01-03 00:15] VITALS: BP 168/127; PULSE 130; RESP 20; TEMP 36.4; O2SAT 97
[2024-01-03] MEDS: amlodipine 10 mg Tablet PO ×3 (00:38→18:33)
[2024-01-03] MEDS: trazodone 50 mg Tablet PO ×3 (00:38→22:05)
[2024-01-03] MEDS: hyDROXYzine 25 mg Capsule 50 MG PO (00:38)
--- NOTE | 2024-01-03 00:49 | PC.ADMIT ---
4 [facility] Admission Note: The patient,Wicho Lugo,38 y/o, was given written information regarding hospital policies, unit procedures and contact persons. Patient's smoking status: current every day smoker. Vital Signs - 8 hr 01/02/24 22:28 01/02/24 23:56 01/02/24 23:59 Temperature 98.2 F Pulse Rate 128 H 120 H Respiratory Rate 16 Blood Pressure 176/117 176/116 Pulse Oximetry 96 96 Oxygen Delivery Method 01/03/24 00:15 01/03/24 00:33 Temperature 97.6 F Pulse Rate 130 H Respiratory Rate 20 H Blood Pressure 168/127 Pulse Oximetry 97 Oxygen Delivery Method Room Air Room Air ADMITTED FROM ER VIA ER STAFF AND WHEELCHAIR AT [facility] [place]. PT IS VOLUNTARY WITH AFFIDAVITS. PT WAS RECENTLY DISCHARGED ON THE November FOR SIMILAR ISSUES OF SUICIDAL THOUGHTS WITH PLAN. PT STATES HE CAME IN TODAY DUE TO I WANT TO AND CUT MYSELF UNTIL THE PAIN STOPS, SUPERFICIAL CUTS TO LEFT ARM ARE OBSERVED. PT STATES HE CUT HIMSELF TODAY WITH A BOX KNIFE. CUTS ARE SUPERFICIAL IN NATURE WITH NO BLEEDING OR S/S OF INFECTIONS, AREA WAS LEFT OPEN TO AIR. PT ENDORSES SUICIDAL THOUGHTS, WHEN ASKED IF HE HAD A PLAN PT LAUGHED SEVERAL TIMES AND STATED YEAH TO RUN MY HEAD INTO THAT DOOR THERE UNTIL I AND BLEED TO . DENIES HI AND AVH AT THIS TIME. PT DOES REPORT HE DOES HEAR VOICES AND SEES THINGS THAT ARE NOT THERE BUT STATES HE IS NOT EXPERIENCING ANYTHING LIKE THAT TONIGHT. DENIES PAIN. RATES ANXIETY 6/10 AND DEPRESSION 10/10. PT REQUIRES A SPECIAL DIET WITH NO RED MEAT, GLUTEN FREE AND NO DAIRY PRODUCTS, CAN HAVE SKIM MILK ONLY. SKIN ASSESSMENT COMPLETED AND FOLLOWS: AREA ALREADY MENTIONED ABOVE, SCAB TO BACK OF LEFT HEEL AND GENERALIZED AREA OVER BOTH LEGS WITH RED RAISED BUMPS THAT APPEAR PIMPLE LIKE. PTS NEXT INVEGA INJECTION IS ON THE OF THIS MONTH. REPORTS HE TAKES ALL HIS MEDICATIONS PRESCRIBED. TEST POSITIVE FOR THC, REPORTED HE IS AN EVERYDAY [employer] USERS. VAPES DAILY. EDUCATION PROVIDED. DECLINES FLU AND PNEUMONIA VACCINES. BP UPON ADMISSION 176/127 AND HR 130. MEDICATIONS RECONCILED, PT STATED HE HAS NOT TAKEN HIS NORVASC 10 MG SO ORTHODONTIST VICE PRESIDENT ADMINISTERED IT ORDERED. DR. CARABALLO AWARE OF ADMISSION AND MEDICATIONS RESTARTED. ORIENTATED PT TO UNIT, SAFETY RULES ETC. MADE COMFORTABLE, GIVEN SANDWHICH AND CHIPS. ALL QUESTIONS ANSWERED AND SUPPORT WAS VOICED.
[2024-01-03 01:36] VITALS: BP 142/92; PULSE 110; O2SAT 95
--- NOTE | 2024-01-03 01:53 | PC.NURSE ---
FOLLOW UP ON ELEVATED BP. ADMISSION BP WAS 176/127, NORVASC 10 MG WAS GIVEN ORDERED. BP RECHECKED ONE HOUR LATER AND BE RECHECK WAS 142/92, MEDICATION IS DEEMED EFFECTIVE AT THIS TIME, BP IS 110 WITH SPO2 95% ON RA. PT RESTING COMFORTABLY WITH EASE.
[2024-01-03 06:00] VITALS: BP 124/73; PULSE 97; RESP 16; TEMP 36.3; O2SAT 96
--- NOTE | 2024-01-03 09:19 | PC.OT ---
ATTEMPTED OT EVAL MORNING OF 01/03 - PATIENT SLEEPING SOUNDLY AND UNABLE TO BE AWAKENED; WILL ATTEMPT AGAIN LATER
--- NOTE | 2024-01-03 09:23 | W.PM.NPUH&PS ---
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 general medical evaluation which was also within normal limits and revealed no new acute processes. Discharge Summary: At the time of discharge, he denied psychosis or lethality. Mood and anxiety were well managed. Patient endorsed a plan to avoid all drugs of abuse and follow-up with the aftercare recommendations of the treatment team. Patient was evaluated and deemed to be absent credible lethality, and had achieved the maximum benefit from an inpatient hospitalization, so was discharged. Meds NPU Home Medications Medication Instructions Recorded Confirmed Last Taken Type amlodipine 10 mg tablet 10 mg PO BID 30 days #60 tabs 08/08/23 01/02/24 Unknown Rx hydrochlorothiazide 25 mg tablet 25 mg PO DAILY 30 days #120 tabs 08/08/23 01/02/24 Unknown Rx lisinopril 20 mg tablet 20 mg PO BID #180 tabs 08/08/23 01/02/24 Unknown Rx paliperidone palmitate 156 mg/mL 156 mg IM Q30D #1 mL 12/08/23 01/02/24 12/17/23 Rx intramuscular syringe (Invega Sustenna) eszopiclone 2 mg tablet 2 mg PO BEDTIME 01/02/24 01/02/24 Unknown History gabapentin 300 mg tablet,extended 300 mg PO BEDTIME 01/02/24 01/02/24 Unknown History release 24 hr trazodone 50 mg tablet 50 mg PO BEDTIME 01/02/24 01/02/24 Unknown History zolpidem 5 mg tablet (Ambien) 5 mg PO BEDTIME 01/02/24 01/02/24 Unknown History Allergies Allergy/AdvReac Type Severity Reaction Status Date / Time gluten Allergy Severe ADR-Diarrhe Verified 01/03/24 00:53 a Milk Containing Products Allergy Severe ADR-Diarrhe Verified 01/03/24 00:53 (Dairy) a amoxicillin Allergy ALGY-Hives Verified 01/03/24 00:53 olanzapine [From Zyprexa] Allergy ADR-Agitate Verified 01/03/24 00:53 d soy Allergy ADR-Diarrhe Verified 01/03/24 00:53 a RED MEAT Allergy Severe ADR-Diarrhe Uncoded 01/03/24 00:53 a PFSH NPU PFSH: Medical History Cannabis dependence, episodic use Schizoaffective disorder, depressive type HTN (hypertension) History of substance use disorder last use of alcohol reported as February 2023 last use of opiates and methamphetamines reported 2018 History of attention deficit hyperactivity disorder (ADHD) Idiopathic mild intellectual disability Chronic post-traumatic stress disorder Clinical diagnosis of COVID-19 Surgical History S/P knee surgery No pertinent past surgical history Family History Other Diabetes Family history of premature coronary artery disease Psychiatric illness Social History Smoking and tobacco/nicotine status: current every day tobacco/nicotine user e-cigarettes E-Cigarette Details: with nicotine E-cig/vape details: 6% one 8,000 puff POD lasts maybe one week Quit status (tobacco/nicotine): not considering quitting Second hand smoke exposure: Yes Alcohol intake: former Former alcohol use details: or 2020 Substance/Drug Use: current Substance/Drug use frequency: few times a month Other substance/drug use details: only when available Adopted: No Caregiver/support person: No Lives independently: Yes Household members: other Details: homeless but stay with a friend Housing: House Marital status: Legally Number of children: 2 Number of grandchildren: 0 Highest education level completed: Some College, No Degree service: No Current occupational status: unemployed Current occupational exposures/hazards: No Pets and animals: Yes Pets & animals: dog(s) Leisure activites: other Leisure activities details: social media Sexually active: No Do you think of yourself as: Straight/Heterosexual Current gender identity: Male Stephany/Rastafari: Pentecostalism Special stephany needs: No Agree to transfusion: Yes Mental Status Exam MSE Comments: This is an obese versus morbidly obese white male in hospital scrubs with limited grooming and eye contact.? No abnormal movements except for mild psychomotor retardation.? Cooperative with exam in mild distress.? Speech was slightly decreased rate and volume.? Mood described as depressed and wanting to end it, affect congruent.? Thought process organized.? Thought content: Patient endorsed suicidal ideation and denied homicidal ideation, there were no delusions reported or noted, he denied any auditory or visual hallucinations.? Attention and concentration were intact and memory appeared mostly reliable but none were formally tested.? He is alert and oriented x3.? Insight and judgment appear limited and impulse control is impaired. Vitals/I&O/Wt Last Vital Signs Temp 97.4 F L 01/03/24 06:00 Pulse 97 01/03/24 06:00 Resp 16 01/03/24 06:00 BP 124/73 01/03/24 06:00 Pulse Ox 96 01/03/24 06:00 O2 Del Method Room Air 01/03/24 06:00 Weight last 48 hrs Weight 158.757 kg Data NPU 01/02/24 22:48 01/02/24 22:48 A&P Assessment and plan (1) Cannabis dependence, episodic use: Plan This is a 38-year-old white male with a long history of trauma, addiction and suicidal thoughts who presents with addiction in remission outside of cannabis and recent nonadherence with meds reporting despair and suicidal ideation 1.? Continue current medications. Will consider changes. 2.? Continue every 15 minute checks for safety. 3.? Encourage individual, group and milieu therapies. 4. Encourage sober living treatment after discharge at the highest level of care to which he is willing to commit. 5. Considerable concerns for malingering. Involuntary Hold Information 96 Hour Hold: 96 Hour Involuntary Admission: No Attestations NPU Medical Necessity Statement*: Inpatient hospitalization is medically necessary and the clinically appropriate intervention at this time. We will monitor medications and make changes as indicated. Patient will be in the hospital for over two midnights. Likely length of stay 3-5 days. Coding Level of Care Code Acute Code for [facility] Fwd Diagnoses Cannabis dependence, episodic use F12.20
[2024-01-03] MEDS: lisinopril 20 mg Tablet PO ×2 (11:22→18:33)
[2024-01-03] MEDS: hydroCHLOROthiazide 25 mg Tablet PO (11:22)
[2024-01-03] MEDS: nicotine 2 mg Gum BUCCAL ×4 (11:29→20:28)
--- NOTE | 2024-01-03 11:37 | PC.NURSE ---
Durning morning nursing assessment, patient denied SI, HI, AVH, depression, and anxiety. Patient took her medications with no issue. Calm. Stated that she is tired.
[2024-01-03 13:59] VITALS: BP 91/56; PULSE 96; RESP 13; O2SAT 94
[2024-01-03] MEDS: gabapentin 300 mg Capsule PO (20:28)
[2024-01-03] MEDS: zolpidem 5 mg Tablet PO (20:28)
[2024-01-03 20:49] VITALS: BP 129/86; PULSE 114; RESP 18; TEMP 36.5; O2SAT 98
[2024-01-04 06:00] VITALS: BP 106/67; PULSE 88; RESP 15; TEMP 36.7; O2SAT 96
--- NOTE | 2024-01-04 12:32 | P.NPUPN_ITS ---
Subjective NPU 2 Subjective: Patient presented today reporting that he is feeling a little better. He was able to reach out to his family and that was somewhat frustrating because of the stories that were going around about what was going on but is also somewhat helpful so that he could identify that they are worried about him and wanting him to be well. We discussed continuing his current medication and possibly identifying whether an increase in the Neurontin would be helpful. We discussed the importance of him staying engaged in treatment and working on issues that are very triggering for him like employment. He denied any side effects to medication. Mental Status Exam 2 MSE Comments: This is an obese versus morbidly obese white male in hospital scrubs with limited grooming and eye contact.? No abnormal movements except for mild psychomotor retardation.? Cooperative with exam in mild distress.? Speech was slightly decreased rate and volume.? Mood described as depressed and wanting to end it, affect congruent.? Thought process organized.? Thought content: Patient endorsed suicidal ideation and denied homicidal ideation, there were no delusions reported or noted, he denied any auditory or visual hallucinations.? Attention and concentration were intact and memory appeared mostly reliable but none were formally tested.? He is alert and oriented x3.? Insight and judgment appear limited and impulse control is impaired. Vitals/I&O/Wt Last Vital Signs Temp 98.0 F 01/04/24 06:00 Pulse 88 01/04/24 06:00 Resp 15 01/04/24 06:00 BP 106/67 01/04/24 06:00 Pulse Ox 96 01/04/24 06:00 O2 Del Method Room Air 01/04/24 06:00 Weight last 48 hrs Weight 158.757 kg Data NPU 01/02/24 22:48 01/02/24 22:48 Micro: Microbiology 01/02/24 22:43 Urine Culture - Final Urine,Clean Catch Microbiology 01/02/24 22:43 Urine,Clean Catch Urine Culture - Final A&P Assessment and plan (1) Cannabis dependence, episodic use: Plan This is a 38-year-old white male with a long history of trauma, addiction and suicidal thoughts who presents with addiction in remission outside of cannabis and recent nonadherence with meds reporting despair and suicidal ideation 1.? Continue current medications. Will consider changes. Though the Neurontin 300 mg at bedtime is new and will likely consider increasing that as an option. 2.? Continue every 15 minute checks for safety. 3.? Encourage individual, group and milieu therapies. 4. Encourage sober living treatment after discharge at the highest level of care to which he is willing to commit. 5. Considerable concerns for malingering. Involuntary Hold Information 2 96 Hour Hold: 96 Hour Involuntary Admission: No Attestations NPU 2 Medical Necessity Statement*: Inpatient hospitalization is medically necessary and the clinically appropriate intervention at this time. We will monitor medications and make changes as indicated. Likely length of stay 2-4 days. Coding Level of Care Code Acute Code for g Fwd Diagnoses Cannabis dependence, episodic use F12.20
[2024-01-04] MEDS: amlodipine 10 mg Tablet PO ×2 (12:34→17:56)
[2024-01-04] MEDS: lisinopril 20 mg Tablet PO ×2 (12:34→17:56)
[2024-01-04] MEDS: hydroCHLOROthiazide 25 mg Tablet PO (12:34)
[2024-01-04] MEDS: nicotine 2 mg Gum BUCCAL ×5 (12:34→20:51)
[2024-01-04 14:00] VITALS: BP 109/73; PULSE 97; RESP 16; TEMP 36.8; O2SAT 97
[2024-01-04] MEDS: trazodone 50 mg Tablet PO ×2 (20:27)
[2024-01-04] MEDS: gabapentin 300 mg Capsule PO (20:28)
[2024-01-04] MEDS: zolpidem 5 mg Tablet PO (20:28)
[2024-01-04 20:37] VITALS: BP 126/92; PULSE 112; RESP 18; TEMP 36.2; O2SAT 97
[2024-01-05 06:00] VITALS: BP 95/59; PULSE 90; RESP 18; TEMP 36.8; O2SAT 97
[2024-01-05] MEDS: amlodipine 10 mg Tablet PO (08:08)
[2024-01-05] MEDS: lisinopril 20 mg Tablet PO (08:08)
[2024-01-05] MEDS: hydroCHLOROthiazide 25 mg Tablet PO (08:08)
[2024-01-05] MEDS: nicotine 2 mg Gum BUCCAL ×2 (08:36→10:44)
--- NOTE | 2024-01-05 12:16 | P.NPUDS_ITS ---
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 discharge. During the hospitalization, patient had routine laboratory studies which were within normal limits except for few outliers. Additionally there was a general medical evaluation which was also within normal limits and revealed no new acute processes. Discharge Summary: At the time of discharge, he denied psychosis or lethality. Mood and anxiety were well managed. Patient endorsed a plan to avoid all drugs of abuse and follow-up with the aftercare recommendations of the treatment team. Patient was evaluated and deemed to be absent credible lethality, and had achieved the maximum benefit from an inpatient hospitalization, so was discharged. Involuntary Hold Information 96 Hour Hold: 96 Hour Involuntary Admission: No Mental Status Exam MSE Comments: This is an obese versus morbidly obese white male in hospital scrubs with limited grooming and eye contact.? No abnormal movements except for mild psychomotor retardation.? Cooperative with exam in mild distress.? Speech was slightly decreased rate and volume.? Mood described as better, affect congruent.? Thought process organized.? Thought content: Patient denied suicidal or homicidal ideation, there were no delusions reported or noted, he denied any auditory or visual hallucinations.? Attention and concentration were intact and memory appeared mostly reliable but none were formally tested.? He is alert and oriented x3.? Insight and judgment appear limited and impulse control is impaired. Discharge Data Studies Completed and Pending: Laboratory Results WBC 10.02 10^3/uL (3. 29-11.43) 01/02/24 22:48 RBC 5.17 10^6/uL (3.8 5-5.65) 01/02/24 22:48 Hgb 15.30 g/dL (11.27 -16.99) 01/02/24 22:48 Hct 43.8 % (37-53) 01/02/24 22:48 MCV 84.7 fl (82-101) 01/02/24 22:48 MCH 29.6 pg (27-33) 01/02/24 22:48 MCHC 34.9 g/dL (30-55) 01/02/24 22:48 RDW 12.4 % (12.1-15.1 ) 01/02/24 22:48 Plt Count 248 10^3/cmm (157 -399) 01/02/24 22:48 MPV 8.5 fL (7.4-10.4) 01/02/24 22:48 Neut % (Auto) 53.4 % 01/02/24 22:48 Lymph % (Auto) 34.8 % 01/02/24 22:48 [place] % (Auto) 5.9 % 01/02/24 22:48 Eos % (Auto) 5.0 % 01/02/24 22:48 Baso % (Auto) 0.6 % 01/02/24 22:48 Neut # (Auto) 5.35 10^3/uL (1.8 -7.7) 01/02/24 22:48 Lymph # (Auto) 3.5 10^3/uL (0.8- 4.8) 01/02/24 22:48 [place] # (Auto) 0.6 10^3/uL (0.2- 0.9) 01/02/24 22:48 Eos # (Auto) 0.5 10^3/uL (0.0- 0.8) 01/02/24 22:48 Baso # (Auto) 0.1 10^3/uL (0.0- 0.1) 01/02/24 22:48 Nucleated RBC % (a uto) 0 % 01/02/24 22:48 Nucleated RBCs # 0.0 /100WBC 01/02/24 22:48 Sodium 138 mmol/L (136-1 45) 01/02/24 22:48 Potassium 3.2 mmol/L (3.5-5 .1) L 01/02/24 22:48 Chloride 103 mmol/L (98-10 7) 01/02/24 22:48 Carbon Dioxide 19 mmol/L (22-29) L 01/02/24 22:48 Anion Gap 19.2 (5-19) H 01/02/24 22:48 BUN 12 mg/dL (6-20) 01/02/24 22:48 Creatinine 1.0 mg/dL (0.7-1. 2) 01/02/24 22:48 GFR Calculation 83.2 mL/min (90-1 30) L 01/02/24 22:48 Glucose 120 mg/dL (65-115 ) H 01/02/24 22:48 Calculated Osmolal ity 287 mOsm/kg (285- 295) 01/02/24 22:48 Calcium 9.4 mg/dL (8.5-10 .5) 01/02/24 22:48 Total Bilirubin 0.5 mg/dL (0.15-1 .2) 01/02/24 22:48 AST 33 U/L (0-40) 01/02/24 22:48 ALT 54 U/L (0-41) H 01/02/24 22:48 Alkaline Phosphata se 73 U/L (40-130) 01/02/24 22:48 Total Protein 7.9 g/dL (6.6-8.7 ) 01/02/24 22:48 Albumin 4.4 g/dL (3.5-5.2 ) 01/02/24 22:48 Globulin 3.5 g/dL (1.3-4.6 ) 01/02/24 22:48 TSH 1.94 uIU/mL (0.27 -4.20) 01/02/24 22:48 Urine Color Yellow (Yellow) 01/02/24 22:43 Urine Appearance Cloudy (CLEAR) A 01/02/24 22:43 Urine pH 5 (5-7) 01/02/24 22:43 Ur Specific Gravit y 1.025 (1.005-1.0 30) 01/02/24 22:43 Urine Protein 1+ (Negative) H 01/02/24 22:43 Urine Glucose (UA) Norm (Normal) 01/02/24 22:43 Urine Ketones 2+ (Negative) H 01/02/24 22:43 Urine Blood 2+ (Negative) H 01/02/24 22:43 Urine Nitrate Negative (Negati ve) 01/02/24 22:43 Urine Bilirubin 1+ (Negative) H 01/02/24 22:43 Urine Urobilinogen 4 mg/dL (Negative ) H 01/02/24 22:43 Ur Leukocyte Sherry ase Trace (Negative) H 01/02/24 22:43 Urine RBC 5-10 /hpf (0-2) H 01/02/24 22:43 Urine WBC 15-25 /hpf (0-5) H 01/02/24 22:43 Ur Squamous Epith Cells 0-4 /hpf (0-5) H 01/02/24 22:43 Amorphous Sediment Not Reportable 01/02/24 22:43 Urine Bacteria 2+ /hpf (NONE) H 01/02/24 22:43 Hyaline Casts 0-4 /lpf H 01/02/24 22:43 Urine Mucus 2+ /hpf 01/02/24 22:43 Salicylates < 0.3 mg/dL (3-10 ) L 01/02/24 22:48 Urine Opiates Scre en Negative ng/mL (N egative) 01/02/24 22:43 Acetaminophen < 5.0 ug/mL (10-3 0) L 01/02/24 22:48 Ur Barbiturates Sc reen Negative ng/mL (N egative) 01/02/24 22:43 Ur Phencyclidine S crn Negative ng/mL (N egative) 01/02/24 22:43 Ur Amphetamines Sc reen Negative ng/mL (N egative) 01/02/24 22:43 U Benzodiazepines Scrn Negative ng/mL (N egative) 01/02/24 22:43 Urine Cocaine Scre en Negative ng/mL (N egative) 01/02/24 22:43 U Marijuana (THC) Screen Positive ng/mL (N egative) H 01/02/24 22:43 Ethyl Alcohol < 10 mg/dL (0-10) 01/02/24 22:48 Vitals: Last Vital Signs Temp 98.2 F 01/05/24 06:00 Pulse 90 01/05/24 06:00 Resp 18 01/05/24 06:00 BP 95/59 01/05/24 06:00 Pulse Ox 97 01/05/24 06:00 O2 Del Method Room Air 01/04/24 14:00 Discharge Plan Discharge Patient Disposition: Home Condition: Stable Prescriptions: Continued amlodipine 10 mg Tablet 10 mg PO BID 30 Days Qty: 60 1RF lisinopril 20 mg tablet 20 mg PO BID Qty: 180 1RF hydrochlorothiazide 25 mg Tablet 25 mg PO DAILY 30 Days Qty: 120 1RF Invega Sustenna 156 mg/mL syringe 156 mg IM Q30D Qty: 1 2RF Rx Instructions: Next loading dose IM 12/14/2023 IM deltoid then as directed trazodone 50 mg Tablet 50 mg PO BEDTIME Ambien 5 mg Tablet 5 mg PO BEDTIME eszopiclone 2 mg Tablet 2 mg PO BEDTIME gabapentin 300 mg Tablet Extended Release 24 Hr 300 mg PO BEDTIME Discharge Orders: Discharge Order (Routine); Ordered 01/05/24 Ordered By: Nasir Dexter Referrals: [facility] [Outside] - 01/06/24 2:00 pm (Hospital follow up with Izzy) Drake Hernandez, [Primary Care Provider] - Colette Jeong PMHNP [Staff Physician] - Latanya Hairston FNP [Nurse Practitioner] - 02/14/24 2:00 pm Discharge Diet: Regular Discharge Activity: Resume usual activity Patient Instructions: Opioid Safety Discharge Attestations NPU Time Spent in Discharge Care*: less than 30 min Specific Discharge Activities: Specific discharge activities: educating patient, discussing with rn case management/social workers/dc planners, documenting/other paperwork and evaluating patient/reviewing data Coding Level of Care Code Acute Code for Chg Fwd Diagnoses Cannabis dependence, episodic use F12.20
[2024-01-05 13:01] VITALS: BP 95/59; PULSE 90; RESP 18; TEMP 36.8; O2SAT 97
== END 2024-01-05 13:14 | disposition home or self-care (01) | DRG 885 ==
LOC: ER 23:21 → NP 23:54
PROVIDERS: Admitting Provider Psychiatry & Neurology Psychiatry; Emergency Provider Nurse Practitioner Family; PCP Family Medicine; Visit Provider Psychiatry & Neurology Psychiatry
DX: F33.9 Major depressive disorder, recurrent, unspecified (principal); R45.851 Suicidal ideations; Z59.01 Sheltered homelessness; I10 Essential (primary) hypertension; F17.290 Nicotine dependence, other tobacco product, uncomplicated; F12.20 Cannabis dependence, uncomplicated; F10.11 Alcohol abuse, in remission; F15.91 Other stimulant use, unspecified, in remission; S51.812A Laceration without foreign body of left forearm, initial encounter; X78.1XXA Intentional self-harm by knife, initial encounter; Z76.5 Malingerer [conscious simulation]
CPT/HCPCS: 36415; 80053; 80306; 80307; 81001; 84443; 85025; 87086; 97165; 99285

== ENCOUNTER 2024-04-08 23:01 | Inpatient (IN) | payer OTHER, MEDICAID, SELFPAY ==
[2023-12-06 11:13] VITALS: BP 157/109; BMI 43.6
[2024-04-08 23:12] VITALS: BP 159/87; PULSE 88; RESP 20; TEMP 37.1; O2SAT 96; BMI 43.1
[2024-04-09 00:18] LABS: Amphetamines Screen Urine Negative (Negative); Barbiturates Screen Urine Negative (Negative); Benzodiazepines Screen Urine Negative (Negative); Cocaine Screen Urine Negative (Negative); Opiate Screen Urine Negative (Negative); PCP Screen Urine Negative (Negative); THC Screen Urine Positive (Negative)
[2024-04-09 00:21] LABS: Add Urine Microscopic? YES; Bilirubin Urine 1+ (Negative); Blood Urine Neg (Negative); Glucose Urine UA Norm (Normal); Ketones Urine 1+ (Negative); Leukocyte Esterase Urine Negative (Negative); Nitrate Urine Negative (Negative); Protein Urine Trace (Negative); RBC Urine 0-4 /hpf (0-2); Squamous Epithelial Cell Urine 0-4 /hpf (0-5); Urine Appearance Hazy (CLEAR); Urine Color Yellow (Yellow); Urobilinogen Urine Neg (Negative); pH Urine 5 (5-7)
[2024-04-09 00:22] LABS: Bacteria Urine TRACE /hpf; Mucus Urine 3+ /hpf
[2024-04-09 00:23] LABS: Basophils # 0.1 10^3/uL (0.0-0.1); Basophils % 0.5 %; Eosinophils # 0.2 10^3/uL (0.0-0.8); Eosinophils % 2.1 %; Hematocrit 39.1 % (37-53); Lymphocytes # 3.5 10^3/uL (0.8-4.8); Lymphocytes % 35.8 %; Mean Corpuscular HGB Conc 34.3 g/dL (30-55); Mean Corpuscular Hemoglobin 29.8 pg (27-33); Mean Corpuscular Volume 87.1 fl (82-101); Mean Platelet Volume 8.8 fL (7.4-10.4); Monocytes # 0.6 10^3/uL (0.2-0.9); Monocytes % 6.3 %; Neutrophils # 5.34 10^3/uL (1.8-7.7); Nucleated Red Blood Cells % 0 %; Platelet Count 211 10^3/cmm (157-399); Red Blood Count 4.49 10^6/uL (3.85-5.65); Red Cell Distribution Width 12.4 % (12.1-15.1)
--- NOTE | 2024-04-09 00:37 | W.ED.PSYCHS ---
HPI - Psych General: Chief Complaint: Psychiatric Symptoms Stated Complaint: SI Time Seen by Provider: 04/08/24 23:16 History of Present Illness: 38-year-old male gentleman presenting with suicidal ideation. He states that his plan was to jump off a bridge. He has been admitted for depression before. He denies alcohol use. He does admit to marijuana use. He denies recent illness or fever. Review of Systems Const: Denies: fever(s), chills or body aches Eyes: Denies: change in vision Card: Denies: chest pain or palpitations Resp: Denies: dyspnea, productive cough, non-productive cough or wheezing GI: Denies: abdominal pain, nausea, vomiting, diarrhea or hematochezia Skin/Breast: Denies: rash Neuro: Denies: headache(s), weakness in extremities, dizziness or confusion PFSH ED PFSH: Medical History Cannabis dependence, episodic use Schizoaffective disorder, depressive type HTN (hypertension) History of substance use disorder last use of alcohol reported as February 2023 last use of opiates and methamphetamines reported 2017 History of attention deficit hyperactivity disorder (ADHD) Idiopathic mild intellectual disability Chronic post-traumatic stress disorder Clinical diagnosis of COVID-19 Surgical History S/P knee surgery No pertinent past surgical history Family History Other Diabetes Family history of premature coronary artery disease Psychiatric illness Social History Smoking and tobacco/nicotine status: current every day tobacco/nicotine user e-cigarettes E-Cigarette Details: with nicotine E-cig/vape details: 6% one 8,000 puff POD lasts maybe one week Quit status (tobacco/nicotine): not considering quitting Second hand smoke exposure: Yes Alcohol intake: former Former alcohol use details: or 2020 Substance/Drug Use: current Substance/Drug use frequency: few times a month Other substance/drug use details: only when available Adopted: No Caregiver/support person: No Lives independently: Yes Household members: other Details: homeless but stay with a friend Housing: House Marital status: Legally Number of children: 2 Number of grandchildren: 0 Highest education level completed: Some College, No Degree service: No Current occupational status: unemployed Current occupational exposures/hazards: No Pets and animals: Yes Pets & animals: dog(s) Leisure activites: other Leisure activities details: social media Sexually active: No Do you think of yourself as: Straight/Heterosexual Current gender identity: Male Stephany/Muslim: Sabianist Special stephany needs: No Agree to transfusion: Yes Physical Exam Const: COMMON NORMALS: no acute distress GENERAL APPEARANCE: cooperative; not ill appearing and not frail appearing HENMT: COMMON NORMALS: normocephalic, atraumatic and Normal external nose present HEAD & SCALP: normocephalic and atraumatic FACE & SINUS: normal facial exam and face symmetric NOSE: Normal external nose present Eye: COMMON NORMALS: Equal, round and reactive pupils present and EOMs intact bilaterally PUPIL: Yes Equal, round and reactive pupils present Neck/C-Spine: GENERAL: Yes trachea midline Chest: CHEST: Yes Symmetrical chest wall rise Resp: COMMON NORMALS: normal respiratory effort, No retractions, No use of accessory muscles and clear to auscultation bilaterally AUSCULTATION: clear to auscultation bilaterally Cardio: COMMON NORMALS: regular rate and regular rhythm RATE: regular rate RHYTHM: regular rhythm GI: COMMON NORMALS: Normal to inspection, nondistended, normoactive bowel sounds present Extremity: COMMON NORMALS: no pedal edema Neuro: ANALI COMA SCALE: document GCS findings [place] coma scale eye opening: Spontaneous [place] coma scale verbal response: Orientated Anali coma scale motor response: Obey commands Anali coma scale total score: 15 SENSORY EXAM: Yes extremities (intact) Psych: COMMON NORMALS: speech normal SPEECH: Yes normal speech Skin: COMMON NORMALS: no rashes or lesions noted GENERAL SKIN EXAM: no rashes or lesions noted Course Vital Signs: Vital signs: Vital Signs Temperature 97.8 F 04/09/24 02:47 Pulse Rate 93 04/09/24 02:47 Respiratory Rate 16 04/09/24 06:16 Blood Pressure 148/98 04/09/24 02:47 Pulse Oximetry 97 04/09/24 02:47 Oxygen Delivery Me thod Room Air 04/09/24 02:21 [facility] - Psych Medical Decision Making Medically, the patient appears stable. He is positive for marijuana. CBC is normal. Spoke with psychiatry. They are willing to admit. Patient is voluntary at this point. Lab Data 04/09/24 00:18 04/09/24 00:18 Laboratory Results WBC 9.70 10^3/uL (3.29-11.43) 04/09/24 00:18 RBC 4.49 10^6/uL (3.85-5.65) 04/09/24 00:18 Hgb 13.40 g/dL (11.27-16.99) 04/09/24 00:18 Hct 39.1 % (37-53) 04/09/24 00:18 MCV 87.1 fl (82-101) 04/09/24 00:18 MCH 29.8 pg (27-33) 04/09/24 00:18 MCHC 34.3 g/dL (30-55) 04/09/24 00:18 RDW 12.4 % (12.1-15.1) 04/09/24 00:18 Plt Count 211 10^3/cmm (157-399) 04/09/24 00:18 MPV 8.8 fL (7.4-10.4) 04/09/24 00:18 Neut % (Auto) 55.0 % 04/09/24 00:18 Lymph % (Auto) 35.8 % 04/09/24 00:18 [place] % (Auto) 6.3 % 04/09/24 00:18 Eos % (Auto) 2.1 % 04/09/24 00:18 Baso % (Auto) 0.5 % 04/09/24 00:18 Neut # (Auto) 5.34 10^3/uL (1.8-7.7) 04/09/24 00:18 Lymph # (Auto) 3.5 10^3/uL (0.8-4.8) 04/09/24 00:18 [place] # (Auto) 0.6 10^3/uL (0.2-0.9) 04/09/24 00:18 Eos # (Auto) 0.2 10^3/uL (0.0-0.8) 04/09/24 00:18 Baso # (Auto) 0.1 10^3/uL (0.0-0.1) 04/09/24 00:18 Nucleated RBC % (auto) 0 % 04/09/24 00:18 Nucleated RBCs # 0.0 /100WBC 04/09/24 00:18 Sodium 135 mmol/L (136-145) L 04/09/24 00:18 Potassium 3.2 mmol/L (3.5-5.1) L 04/09/24 00:18 Chloride 104 mmol/L (98-107) 04/09/24 00:18 Carbon Dioxide 21 mmol/L (22-29) L 04/09/24 00:18 Anion Gap 13.2 (5-19) 04/09/24 00:18 BUN 11 mg/dL (6-20) 04/09/24 00:18 Creatinine 0.9 mg/dL (0.7-1.2) 04/09/24 00:18 GFR Calculation 93.9 mL/min (90-130) 04/09/24 00:18 Glucose 141 mg/dL (65-115) H 04/09/24 00:18 Calculated Osmolality 282 mOsm/kg (285-295) L 04/09/24 00:18 Calcium 8.7 mg/dL (8.5-10.5) 04/09/24 00:18 Total Bilirubin 0.6 mg/dL (0.15-1.2) 04/09/24 00:18 AST 33 U/L (0-40) 04/09/24 00:18 ALT 42 U/L (0-41) H 04/09/24 00:18 Alkaline Phosphatase 62 U/L (40-130) 04/09/24 00:18 Total Protein 7.1 g/dL (6.6-8.7) 04/09/24 00:18 Albumin 3.9 g/dL (3.5-5.2) 04/09/24 00:18 Globulin 3.2 g/dL (1.3-4.6) 04/09/24 00:18 Urine Color Yellow (Yellow) 04/08/24 23:41 Urine Appearance Hazy (CLEAR) A 04/08/24 23:41 Urine pH 5 (5-7) 04/08/24 23:41 Ur Specific [place] 1.030 (1.005-1.030) 04/08/24 23:41 Urine Protein Trace (Negative) 04/08/24 23:41 Urine Glucose (UA) Norm (Normal) 04/08/24 23:41 Urine Ketones 1+ (Negative) H 04/08/24 23:41 Urine Blood Neg (Negative) 04/08/24 23:41 Urine Nitrate Negative (Negative) 04/08/24 23:41 Urine Bilirubin 1+ (Negative) H 04/08/24 23:41 Urine Urobilinogen Neg mg/dL (Negative) 04/08/24 23:41 Ur Leukocyte Esterase Negative (Negative) 04/08/24 23:41 Urine RBC 0-4 /hpf (0-2) H 04/08/24 23:41 Urine WBC 5-10 /hpf (0-5) H 04/08/24 23:41 Ur Squamous Epith Cells 0-4 /hpf (0-5) H 04/08/24 23:41 Amorphous Sediment Not Reportable 04/08/24 23:41 Urine Bacteria Trace /hpf (NONE) 04/08/24 23:41 Urine Mucus 3+ /hpf 04/08/24 23:41 Salicylates < 0.3 mg/dL (3-10) L 04/09/24 00:18 Urine Opiates Screen Negative ng/mL (Negative) 04/08/24 23:41 Acetaminophen < 5.0 ug/mL (10-30) L 04/09/24 00:18 Ur Barbiturates Screen Negative ng/mL (Negative) 04/08/24 23:41 Ur Phencyclidine Scrn Negative ng/mL (Negative) 04/08/24 23:41 Ur Amphetamines Screen Negative ng/mL (Negative) 04/08/24 23:41 U Benzodiazepines Scrn Negative ng/mL (Negative) 04/08/24 23:41 Urine Cocaine Screen Negative ng/mL (Negative) 04/08/24 23:41 U Marijuana (THC) Screen Positive ng/mL (Negative) H 04/08/24 23:41 Ethyl Alcohol < 10 mg/dL (0-10) 04/09/24 00:18 No radiology studies performed this visit Discharge Plan Discharge Patient Disposition: Admitted As Inpatient Admit Provider: Tremayne Crenshaw Clinical Impression: Schizoaffective disorder, depressive type, Suicidal ideation Condition: Stable Coding Level of Care Code ED Supervisor Paper Machine for Aby Dixon
[2024-04-09 00:40] LABS: Alanine Aminotransferase 42 U/L (0-41); Albumin Level 3.9 g/dL (3.5-5.2); Alkaline Phosphatase 62 U/L (40-130); Anion Gap 13.2 (5-19); Aspartate Amino Transferase 33 U/L (0-40); Blood Urea Nitrogen 11 mg/dL (6-20); Calcium 8.7 mg/dL (8.5-10.5); Carbon Dioxide 21 mmol/L (22-29); Chloride 104 mmol/L (98-107); Creatinine Clr Calc Pharmacy 176.5873; Globulin 3.2 g/dL (1.3-4.6); Glomerular Filtration Rate 93.9 mL/min (90-130); Glucose 141 mg/dL (65-115); Osmolality Calculated 282 mOsm/kg (285-295); Potassium 3.2 mmol/L (3.5-5.1); Sodium 135 mmol/L (136-145); Total Bilirubin 0.6 mg/dL (0.15-1.2); Total Protein 7.1 g/dL (6.6-8.7)
[2024-04-09 00:41] LABS: Acetaminophen < 5.0 ug/mL (10-30); Alcohol Level < 10 mg/dL (0-10); Salicylate < 0.3 mg/dL (3-10)
[2024-04-09] MEDS: potassium chloride oral liq 20 mEq/15 mL UDC 40 MEQ PO (02:08)
[2024-04-09 02:14] VITALS: BP 168/98; PULSE 92; RESP 16
[2024-04-09 02:16] VITALS: PULSE 97; RESP 16
[2024-04-09 02:47] VITALS: BP 148/98; PULSE 93; RESP 18; TEMP 36.6; O2SAT 97
[2024-04-09 06:16] VITALS: RESP 16
[2024-04-09] MEDS: nicotine 2 mg Gum BUCCAL ×3 (08:29→17:13)
--- NOTE | 2024-04-09 08:35 | PC.NURSE ---
PT CURRENTLY DENIES SI/HI/AH/VH. PT CURRENTLY DENIES ANXIETY AND DEPRESSION. PT STATES THAT HE IS PISSED OFF ABOUT BEING ON THE UNIT. 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 THIS NURSE ATTEMPTED TO EDUCATE PT THAT WE ARE HERE TO HELP. PT WAS RESISTANT TO LEARNING. PT WAS COOPERATIVE WITH ASSESSMENT. PT REFUSED MEDICATIONS STATING I HAVEN'T BEEN TAKING THEM, I THREW THEM ALL OUT. PT CURRENT NEEDS ARE MET AT THIS TIME.
[2024-04-09] MEDS: paliperidone ER 6 mg Tablet PO (14:05)
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
--- NOTE | 2024-04-09 17:22 | PC.NURSE ---
PT REFUSED VITAL SIGNS STATING NOT RIGHT NOW, FUCK OFF. PT CONTINUED TO BE NEGATIVE AND IRRITABLE.
[2024-04-09 20:27] VITALS: BP 162/97; PULSE 89; RESP 18; TEMP 36.5; O2SAT 96
[2024-04-09] MEDS: zolpidem 5 mg Tablet PO (21:12)
[2024-04-09] MEDS: gabapentin 300 mg Capsule PO (21:12)
[2024-04-09] MEDS: trazodone 50 mg Tablet PO (21:12)
[2024-04-10 06:00] VITALS: BP 172/98; PULSE 81; RESP 18; TEMP 36.3; O2SAT 97
[2024-04-10] MEDS: amlodipine 10 mg Tablet PO (06:37)
[2024-04-10] MEDS: lisinopril 20 mg Tablet 40 MG PO (06:37)
[2024-04-10] MEDS: nicotine 2 mg Gum BUCCAL ×2 (07:59→10:53)
[2024-04-10 08:00] VITALS: BP 153/96
--- NOTE | 2024-04-10 08:07 | PC.NURSE ---
IN ROOM SITTING ON SIDE OF BED. PT STATES IF I AM NOT DISCHARGED TODAY I'M SIGNING MYSELF OUT OF THIS FUCKING PLACE. PT REPORTS HE DID NOT SLEEP WELL AND TOSSED AND TURNED ALL NIGHT. DENIES SI/HI AND AVH AT THIS TIME. REPORTS HURTING ALL OVER RATES PAIN 5/10 PT STATES I CAN'T TAKE ANYTHING FOR IT BECAUSE I HAVE AL-FONTAINE GAL. RATES ANXIETY 6/10 BUT DECLINES ANY ANTI-ANXIETY MEDICATIONS THIS AM. RATES DEPRESSION 0/10. ALL QUESTIONS ANSWERED AND SUPPORT VOICE. PT IS NOTED TO BE IRRITABLE AND NEGATIVE THIS AM DUE TO WANTING TO LEAVE. SUPPORT WAS VOICED.
[2024-04-10] MEDS: paliperidone palmitate 234 mg Syringe IM (10:36)
[2024-04-10 13:30] VITALS: BP 153/96
--- NOTE | 2024-04-10 13:32 | PC.NURSE ---
Addendum entered and electronically signed by Shira Issa RN 04/10/24 13:45: LEFT NPU AT 1338 NOT 1336. Original Note: PT CONTINUES TO INSIST HE BE DISCHARGED, DR. VENCES STATES PT IS NOT READY TO BE DISCHARGED AT THIS TIME. PT DID RECEIVE HIS INVEGA 234 MG INJECTION THIS AM. PT DECIDED LEAVE NPU AGAINST MEDICAL ADVISE. ALL RISKS AND CONCERNS WERE REVIEWED WITH PT. PT STATES HE UNDERSTANDS ALL THAT SHIT, I JUST NEED TO GO AND GET MY CHECK. PT SIGNED AMA FORM AND FILLED OUT RISK ASSESSMENT. PT IS EAGER TO LEAVE. ALL BELONGINGS RETURNED TO PT AND BELONGINGS INVENTORY WAS SIGNED BY PT. ALL QUESTIONS ANSWERED AND SUPPORT WAS VOICED. PT LEFT NPU AT 1336 IN NO ACUTE DISTRESS.
--- NOTE | 2024-04-10 16:05 | P.NPUDS_ITS ---
Diagnoses at Discharge Discharge Diagnosis (1) Schizoaffective disorder, depressive type: Status: Chronic (2) Cannabis dependence, episodic use: Status: Chronic (3) Chronic post-traumatic stress disorder: Status: Chronic (4) Allergy to alpha-gal: Status: Acute Reason for Visit Reason for Visit: SI Brief History: History of Present Illness Wicho Lugo is a 38 year old male With a history of multiple inpatient psychiatric hospitalizations who presented to the emergency department with a plan to jump off of a bridge and attempt to complete suicide. Patient was admitted to the neuropsychiatric unit for further diagnosis and treatment. Patient reports that he had stopped his medication several months ago and states that he has been feeling worse since he had discontinued it. He reports that he is hearing voices. He reports that he had made a stupid decision to come here but states that he does need to get back on his medications. Patient had been attempting to get follow-up for his medication management at the [facility] but had not been successful at restarting his medications. He reports that he has been feeling more depressed. He reports increased feelings of hopelessness. He endorses having increased paranoia. He reports that he has been homeless and states that he has been able to keep a job and is hopeful about finding a place to live as he had previously been living at [facility] for nearly 2 years. Patient had reported that he had thrown out all of his medications 1 month ago. He reports no other substantial changes in his life since his last hospitalization 2 months ago. Excerpt from NPU Discharge Summary from 01/05/24 Diagnoses at Discharge Discharge Diagnosis (1) Cannabis dependence, episodic use: Status: Chronic Reason for Visit Reason for Visit: SI Brief History: History of Present Illness Wicho Lugo is a 38 year old male who presented to the emergency department with the following report: Chief Complaint: Psychiatric Symptoms Stated Complaint: SI Time Seen by Provider: 01/02/24 22:28 History of Present Illness: 38-year-old male patient comes in today with complaints of suicidal thoughts. Patient has a history of suicidal ideation, major depressive disorder, and schizoaffective disorder. Patient was recently released from [facility] on 17 December for similar complaints. Patient has some superficial linear flores to his left forearm which he reports he used a telephone coin box collector to cut himself. Patient said he did this instead of using methamphetamines. Patient reports that he has been using his prescription medications as directed for his blood pressure and p sychiatric disorder. Patient has had 1 shot of Invega since being discharged from the stress center and is to be scheduled for another injection soon. MD complaint: suicidal ideation Onset (ago): day(s) Duration: getting worse History of same: Yes Relieving factors: other (Using methamphetamines) Exacerbating factors: none Context: other (Homelessness) Associated psychiatric symptoms: depression Associated symptoms: Reports depression and suicidal ideation Treatments prior to arrival: none If self harm: admits thoughts of self harm and has plan (Cutting his wrist) He was admitted to the neuropsychiatric unit for definitive treatment of those issues. Patient presented today having discharged about 4 weeks ago. An excerpt of his last discharge summary is included below for context and the fact that there are no substantive changes since his last stay. He presents reporting that he has continued to stay sober from the standpoint of alcohol and methamphetamine. He continues to use cannabis. He reports that he has been consistent with his medication and continuing his appointments. He reports that he got very frustrated with his lack of employment and being stuck in the same situation that has plagued him for the past 6 months or more. He reports in a state of frustration he did the superficial cuts on his left inner forearm. He reports that he is upset with himself that he did that but he felt torn between doing something like that and relapsing. He reports that he did not want to relapse. He reports that he continues to balance between his sister and being homeless. He reports that he feels like a burden to his sister and so if it is not too cold he sleeps out in a tent somewhere but when he gets too cold he does go to his sister's place. He reports that he knows that he can make it come back of sorts if he can just get a job but he just feels like nobody is willing to hire him and it continues the cycle of despair. We discussed the risks, be nefits and alternatives of reviewing his medications and consider changes and he understood and agreed to proceed as is documented in this note. He reports that the Neurontin 300 mg p.o. nightly was just recently started and he wants to see if that helps at all. He reports that he has been in the [employer] program in the past but that he had essentially graduated from it and was doing well but then he lost his job, lost his residence, lost his car and he finds himself at the end of that cycle again looking for employment and trying not to be discouraged. Per his 12/08/2023 [facility] inpatient psychiatric discharge summary: Discharge Diagnosis (1) Depression: Status: Inactive Qualifiers: Active/Remission status: currently active Depression Type: major depressive disorder Major depression episode severity: severe Major depression recurrence: recurrent Psychotic features: without psychotic features Qualified Code(s): F33.2 - Major depressive disorder, recurrent severe without psychotic features (2) Suicidal ideation: Status: Res olved (3) Cannabis dependence, episodic use: Status: Chronic Reason for Visit Reason for Visit: SI Brief History: History of Present Illness Wicho Lugo is a 38 year old male Chief Complaint: Psychiatric Symptoms Stated Complaint: SI Time Seen by Provider: 12/05/23 17:58 Source: patient Mode of arrival: ambulatory History of Present Illness: 38-year-old male states that he is suici selena with a plan of cutting his wrist. He states that he just feels down he has nowhere to go nowhere to stay has been want to kill himself patient has been admitted here before denies any worsening improving factors. Associated symptoms: Reports depression and suicidal ideation He was admitted to the neuropsychiatric unit for definitive treatment of those issues. He presents today known well to this senior technical writer through past inpatient hospitalizations. Many of those hospitalizations have been marked by significant psychosocial stressors generally including either being unemployed or homeless. He initially denied this but ultimately confirmed that he has been homeless for some time and was just staying with his sister and things ran their course. He had been doing fairly well maintaining his medication through the Invega Sustenna injection but it does appear that he may be 3 weeks removed from what he should have gotten his last injection. We agreed we would do some research to find out where things stood injection rodriguez. We also talked about him working with the social work team to find out if there were any options that were feasible for him to discharge to. He endorsed significant frustration about not being able to find a job. He reports that he probably is doing less well because of not having the medication on board. An excerpt of his last discharge summary is included below for context and the fact that there are no substantive changes in his psychosocial history. Per his 08/08/2023 [facility] inpatient psychiatric discharge summary: Discharge Diagnosis (1) Depression: Status: Inactive Qualifiers: Active/Remission status: currently active Depression Type: major depressive disorder Major depression episode severity: severe Major depression recurrence: recurrent Psychotic features: without psychotic features Qualified Code(s): F33.2 - Major depressive disorder, recurrent severe without psychotic features (2) Suicidal ideation: Status: Res olved (3) Cannabis dependence, episodic use: Status: Chronic Reason for Visit Reason for Visit: MHE Brief History: History of Present Illness Wicho Lugo is a 37 year old male who presented to the emergency department with the following report: Chief Complaint: Psychiatric Symptoms Stated Complaint: MHE Time Seen by Provider: 08/04/23 14:23 Source: patient Mode of arrival: ambulatory Limitations: no limitations History of Present Illness: 29-year-old male has extensive psychiatr ic history states he has been having increasing depression over the last month with increased thoughts of suicidality has no specific plan but states he just does not feel like living anymore patient was seen at [facility] brought over here for admission he voluntarily wants to be admitted to the psych smiley he has no worsening improving factors. Associated symptoms: Reports depression and suicidal ideation. He was admitted to the neuropsychiatric unit for definitive treatment of those issues. He presents today for his third hospitalization this year. The last 1 was January 2023 an excerpt is included below secondary to no substantive changes since that time. He presents today reporting that he came to the hospital because he is at a point where he just wants to . He reports that he is lost all desire to live and that he is done with being in this world and just ready to go to the next. He reports being jobless, homeless and without any family kee pports. He reported that the best thing for him to do is to diet. He reports that he has been off of his medication for 1 to 2 months secondary to the lapse of his medication. He reports he does have a hot box checker and that is the person that brought him up here. He reports losing his job and not having a new job yet was a significant factor in his feelings and just feeling that he is working hard and not getting anywhere. He continues to be in less than desirable situations with housing having to check up with whoever will except him. He reports that his overall situation has made him feel so sad with his situation and feeling despair, hopeless, helpless and worthless and with significant suicidal thoughts and urges. We discussed the risks benefits and alternatives of restarting his medications and trying to see if we can get him back with Medicaid so that he can continue on his medications. And he understood and agreed to proceed as is documented in this note. Per his 02/26/2023 [facility] inpatient psychiatric discharge summary: Discharge Diagnosis (1) Schizoaffective disorder: Statu s: Acute (2) Suicidal ideation: Status: Reso lved Reason for Visit Reason for Visit: SI Brief History: History of Present Illness Wicho Lugo is a 37 year old male who presented to the emergency department with the following report: Chief Complaint: ER Hold Stated Complaint: SI Time Seen by Provider: 02/22/23 22:00 Source: patient Mode of arrival: ambulatory Limitations: no limitations History of Present Illness: 37-year-old male he states that he has been having suicidal thoughts he states he had increasing depression states he just no longer wants to live. He states he has a plan of slitting his wrist and felt like he may do it today. Denies any worsening improving factors. Associated symptoms: Reports depression and suicidal ideation. He was admitted to the neuropsychiatric unit for definitive treatment of those issues. He presents today reporting that he has been taking his medications as prescribed, but that he is having increased depression and increasing suicidal thoughts. He continues to endorse that his addiction has remained under control which his UDS and BAL were negative. He reports that he had been taking his medication effectively until about a month ago. He denied any major or substantive changes since he was last seen by this senior technical writer 1-2 months ago and excerpt of his last psychiatric evaluation by this senior technical writer is included below for context. Per his 12/25/2022 [facility] inpatient discharge summary: Discharge Diagnosis (1) Non compliance w medication regimen: Status: Inactive (2) Depression, major, recurrent, severe with psychosis: Status: Ruled-out (3) History of substance use disorder: Status: Chronic Permanent problem details: last use of alcohol reported as Jul 2021 last use of opiates and methamphetamines reported 2018 last use of marijuana Oct 2022 Reason for Visit Reason for Visit: mhe Brief History: History of Present Illness Wicho Lugo is a 37 year old male who presented to the emergency department the following report: Chief Complaint: Psychiatric Symptoms Stated Complaint: mhe Time Seen by Provider: 12/24/22 15:48 History of Present Illness: Mr. Lugo is a 37-year-old male with history of hypertension, substance abuse, PTSD presenting to the emergency department for suicidal ideation and depression. He reports worsening symptoms for a number of weeks and intentionally injured his wrist about 5 days ago without told people it was an accident. He reports visual hallucinations and no longer feels safe and believes he may be a danger to himself. He reports sleep disturbance and appetite disturbance as well as nightmares. He is no longer taking his medications for depression. Intensity symptoms is moderate to severe. Course is worsened. No other specific changes in health, exacerbating, or alleviating factors identified. Onset (ago): week(s) Duration: getting worse History of same: Yes Relieving factors: none Exacerbating factors: none Associated psychiatric symptoms: depression and visual hallucinations If self harm: admits thoughts of self harm and has acted on plan He was admitted to the neuropsychiatric unit for definitive treatment of those issues. He presents today much as he has in other hospitalizations where this senior technical writer asked him to know him fairly well. Reporting depression and being off of his medication. He continues to endorse that his addiction has remained under control which his UDS and BAL were negative. He reports that he had been taking his medication effectively until about a month ago. He reports he simply ran out of prescriptions because he is working out and he was having difficulty making appointments that would jive with his work schedule. We had a discussion about the crisis center and how this could have been likely avoided with that new service. We also discussed getting him back on his Prozac which he reports is been very effective. We discussed length of stay and the possibility of this being a shorter stay but then we continue that conversation in the morning. He denied any major or substantive changes since he was last seen by this senior technical writer about 13 months ago and excerpt of his last psychiatric evaluation by this senior technical writer is included below for context. We also lengthy discussion about him maintaining his appointments at [facility] so that he can avoid inpatient stays. Per his 11/07/2021 [facility] inpatient psychiatric evaluation: History of Present Illness Wicho Lugo is a 36 year old male who presented to the emergency department with the following report: Chief Complaint: Psychiatric Symptoms Stated Complaint: SI Time Seen by Provider: 11/06/21 19:39 Source: patient and EMS Mode of arrival: EMS Limitations: no limitations History of Present Illness: HPI Narrative: 36-year-old male who is here from [facility] with suicidal ideation. He states that he has been having increasing depression been having thoughts of suicide all day he appears very anxious and fidgety here he states he has a plan to kill himself by jumping out in traffic. He does have a history of psychiatric issues along with alcoholism denies any alcohol intake today or recently he denies any worsening improving factors. Associated symptoms: Reports depression and suicidal ideation. He was admitted to the neuropsychiatric unit for definitive treatment of those issues. He presents today reporting that he had multiple inpatient hospitalizations the - here. His outpatient services at [facility]. He is currently not taking medication he reports having stopped a month or more ago. He could not clarify how that occurred given that he is at [facility] and was understanding that he assisted with medication. He reports that he does not smoke cigarettes, drink alcohol smoke marijuana use any other illicit drugs he denies rehabs or DUIs. He reports the nidus of this situation is that he and his girlfriend broke up about 7 days ago. He reports that that really made him sad he reports he started having thoughts to jump out of the vehicle or run on the ministry in the middle of traffic. Reports that he is having depression, anxiety and mood swings. We agreed that we would work with his outpatient providers to get a handle on what happened with the medication but we discussed the risk benefits and alternatives of starting Risperdal and Lamictal for mood stabilization and he understood agreed proceed as is documented in this note. He denies having any actual suicide attempts but does report suicidal thoughts. An excerpt of his last note from May is acute on chronic. It appears that the only changes he has is possibly stable housing through [facility]. Per his 06/20/2021 [facility] inpatient psychiatric evaluation: History of Present Illness Wicho Lugo is a 35 year old male who presented to the emergency department with the following report: Chief Complaint: Psychiatric Symptoms Stated Complaint: si Time Seen by Provider: 06/19/21 21:51 History of Present Illness: HPI Narrative: 35-year-old male patient comes in tonight with suicidal thoughts and ideation. Patient reports that he has been holding a knife considering on cutting his wrists or his throat for about 3 hours tonight. Patient then become more upset and called EMS for assistance. Patient has been on fluoxetine and Zyprexa for his depression but he stopped taking it 1 week ago. Patient admits to cannabis use but the last time he used was 2 weeks ago. Patient does routinely smoke tobacco. Patient denies any alcohol or other illicit drug use. Patient has had 2 previous admissions to the psychiatric unit once in November and once in January. Patient states that in 2011 he lost his baby daughter who was stillborn at 37 weeks and his brother who was 19. Patient was released from the [facility] and October 2020. Patient is not homeless he works at the [employer]. Patient reports that she is for the last 2 weeks he has had worsening depression to where he stopped taking his medication and now has had increasing thoughts of suicide. Patient is cooperative. Patient does seek voluntary admission to the neuropsychiatric unit. MD complaint: suicidal ideation Onset (ago): day(s) Duration: intermittent and getting worse Relieving factors: none Exacerbating factors: none Associated symptoms: Reports depression and suicidal ideation Treatments prior to arrival: none If self harm: admits thoughts of self harm and has plan Details of plan: He wants to use a knife to cut his wrists and throat. He was admitted to the neuropsychiatric unit for definitive treatment of those issues. He presents today reporting more or less that he had a bad day in the retrospect for which she would have worked through it versus coming to the hospital. He has been going to [facility] and reports he been doing really well. He has a job. He reports that over the past week or so he has been doing this./As well and that he started making stupid thoughts. Yesterday. His desire is to discharge but we discussed the risk-benefit and alternatives of him staying overnight is making sure that that is the right move possibly increasing his Prozac and he understood and agreed proceed as is documented in this note. He denies substantive changes since he was last seen by this senior technical writer back in January 2021 and he was seen for evaluation at [facility] in February of the below for context. Per his 03/27/2021 [facility] psychiatric evaluation: [facility] History and Physical Time In: 09:30 Time Out: 10:30 Chief Complaint: Trying to better self and get treatment for depression and anxiety History of Present Illness: Wicho presents to [facility] care for psychiatric evaluation. States he is here to try to get himself better and to treat his depression and suicidal thoughts. He was [facility] from [facility] October [facility] after completing time for charge of statutory rape. He states since that time he has been homeless. He describes his mood as depressed, states he has no energy, states he cries easily. States he feels alone. Feels people are out to get him. Describes seeing black figures/shadows outside his car when he was sleeping in his car. He denies suicidal thoughts today. Most recent suicidal thoughts was about 2 weeks ago. No homicidal thoughts. Denies auditory and visual hallucinations today. Describes his mind racing. Has had difficulty sleeping. States he has difficulty falling asleep and he wakes up often. Reports nightmares of seeing his brother and his child. He was prescribed medication when he was hospitalized in October. This medication includes Seroquel 200 mg at bedtime, hydroxyzine 50 mg at bedtime, doxepin 10 mg at bedtime, trazodone 200 mg at bedtime, Prozac 20 mg daily, and prazosin 2 mg at bedtime. He states he has not taken this medication on a regular basis. He describes taking the medication about once a week. He verbalizes that no medicine has ever seem to work for him but also verbalizes that he has not taken it consistently. He currently does not have income or insurance coverage. He states he has medication that were given to him when he was at the [facility]. He is agreeable to restarting his medication today and taking on a consistent basis. He is agreeable for individual psychotherapy. Wicho denies any history of alexandro. Wicho does report hopeful thoughts/positive thoughts with treatment. He states staff at the psychiatric unit and [facility] has been helpful in securing housing for him. He states they will help him find a job as well. Wicho reports he smokes marijuana daily as it allows him to escape his problems and not think about stress and worry for a while. He states he has stopped smoking since Wednesday in an attempt to gain employment. He states he has been struggling not to smoke marijuana. History Past Psychiatric History: Has been treated at [facility] off and on since 2013. Has seen providers including Larissa Denise Suleiman, Colette Jeong, and myself. Has diagnoses including PTSD, depression, anxiety, and polysubstance abuse. Has had several hospitalizations in 2015, October 2020, and January 2021. Reports previous suicide attempts including 2018 cut his wrist, in October 2020 jumped off a bridge. Reports previous medication trials including Zoloft, Ritalin, Celexa, Abilify, and Wellbutrin XL. Comments he has not found any medication that has been helpful to him. Family History: Not sure Past Medical History: Reports problems currently of weight gain and hypertension. 1 previous surgery on his knee in 2011 due to a torn meniscus. Substance Use History: States he smokes marijuana every other day. Last smoked on Wednesday. Started smoking at the age of 12 Reports methamphetamine/ pills (including Vicodin and Percocet) use starting at the age of 18, used via smoking/snorting. States he stopped for a while and then restarted. Last use was 2017. Reports alcohol use starting at the age of 12. His heaviest use was drinking 230 packs of beer a day and 1/5. States he last drank 2018 Currently smokes half pack of cigarettes a day. Wicho denies IV drug use. Denies treatment in rehab. Social History: Wicho is currently living in a motel since Wednesday in [place]. He states this has been paid for by behavioral health care. Prior to this he was homeless in [place]. States he would stay with family on occasion or sleep in his car. He is currently not employed. States he is looking for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
== END 2024-04-10 13:38 | disposition left against medical advice (07) | DRG 885 ==
LOC: ER 04-09 01:27 → NP 04-09 01:37
PROVIDERS: Admitting Provider Psychiatry & Neurology Psychiatry; Emergency Provider Emergency Medicine; PCP Family Medicine; Visit Provider Psychiatry & Neurology Psychiatry
DX: F25.1 Schizoaffective disorder, depressive type (principal); R45.851 Suicidal ideations; Z59.00 Homelessness unspecified; F43.12 Post-traumatic stress disorder, chronic; F12.20 Cannabis dependence, uncomplicated; Z91.148 Patient's other noncompliance with medication regimen for other reason
CPT/HCPCS: 36415; 80053; 80306; 80307; 81001; 81003; 85025; 96372; 97165; 99285

== ENCOUNTER 2024-04-12 15:21 | Emergency (ER) | payer OTHER, MEDICAID, SELFPAY ==
[2023-12-06 11:13] VITALS: BP 157/109; BMI 43.6
[2024-04-12 15:34] VITALS: BP 179/125; PULSE 104; RESP 18; TEMP 36.6; O2SAT 96
[2024-04-12 17:30] VITALS: BP 172/116; PULSE 95; RESP 16; O2SAT 98
--- NOTE | 2024-04-12 18:21 | XRR_ITS ---
PROCEDURE INFORMATION: Exam: XR Chest Exam date and time: 04/12/2024 6:25 PM Age: 38 years old Clinical indication: Dyspnea; Additional info: SOB TECHNIQUE: Imaging protocol: Radiologic exam of the chest. Views: 1 view. COMPARISON: CR (CHEST, ) 10/03/2023 10:12 PM FINDINGS: Lungs: The lungs are clear. No pulmonary consolidation. Pleural spaces: No pleural effusion or pneumothorax. Heart/Mediastinum: The cardiomediastinal silhouette is within normal limits. Bones/joints: No acute osseous abnormalities are seen. XR/XR chest 1V portable [id number] IMPRESSION: No acute cardiopulmonary disease.
--- NOTE | 2024-04-12 19:05 | ED_ITS ---
Documented by User: MARIO Fields 04/12/24 19:13 HPI - Skin/Abscess/Foreign Bdy General: Chief complaint: Skin/Abscess/Foreign Body Stated complaint: Rash left zo lower abd Time Seen by Provider: 04/12/24 17:20 Source: patient Mode of arrival: ambulatory Limitations: no limitations History of Present Illness: Patient is a 38-year-old male presenting to the emergency department complaining of rash to the inner aspect of the left upper extremity. Patient notes he noticed the rash a few days ago and has become increasingly itchy and red. He notes he has itched the lesions until the point of oozing. He states someone told him it could be shingles, so this is what prompted him to seek evaluation. He has had this rash before at different parts of his body, most frequently his ankles. Patient has alpha gal and states he has not taken anything. He is denying any fever, nausea or vomiting, chest pain, or other symptoms. He does note he is short of breath though this is chronic. No swelling of mouth or tongue. MD complaint: rash Onset (ago): day(s) Location: LUE Severity: moderate Quality: pruritic Pain Consistency: constant Relieving factors: none Associated symptoms: Deny chills, fever(s), nausea or vomiting Review of Systems General: Reports: 10 or more systems reviewed and unremarkable except in HPI and below Const: Denies: fever(s), chills or fatigue Eyes: Denies: change in vision ENMT: Denies: throat pain, ear or mastoid pain or nasal discharge Card: Denies: chest pain, palpitations, swelling of feet/ankles or lightheadedness Resp: Reports: dyspnea; Denies: productive cough or wheezing GI: Denies: abdominal pain, nausea, vomiting, diarrhea or constipation : Denies: flank pain, difficulty urinating, dysuria or urinary frequency Musc: Denies: neck pain, back pain or joint pain Skin/Breast: Reports: rash Neuro: Denies: headache(s), numbness in extremities or weakness in extremities PFS ED PFSH: Medical History Cannabis dependence, episodic use Schizoaffective disorder, depressive type HTN (hypertension) History of substance use disorder last use of alcohol reported as February 2023 last use of opiates and methamphetamines reported 2018 History of attention deficit hyperactivity disorder (ADHD) Idiopathic mild intellectual disability Chronic post-traumatic stress disorder Clinical diagnosis of COVID-19 Surgical History S/P knee surgery No pertinent past surgical history Family History Other Diabetes Family history of premature coronary artery disease Psychiatric illness Social History Smoking and tobacco/nicotine status: current every day tobacco/nicotine user e- cigarettes E-Cigarette Details: with nicotine E-cig/vape details: 6% one 8,000 puff POD lasts maybe one week Quit status (tobacco/nicotine): not considering quitting Second hand smoke exposure: Yes Alcohol intake: former Former alcohol use details: or 2020 Substance/Drug Use: current Substance/Drug use frequency: few times a month Other substance/drug use details: only when available Adopted: No Caregiver/support person: No Lives independently: Yes Household members: other Details: homeless but stay with a friend Housing: House Marital status: Legally Number of children: 2 Number of grandchildren: 0 Highest education level completed: Some College, No Degree service: No Current occupational status: unemployed Current occupational exposures/hazards: No Pets and animals: Yes Pets & animals: dog(s) Leisure activites: other Leisure activities details: social media Sexually active: No Do you think of yourself as: Straight/Heterosexual Current gender identity: Male Stephany/Tenriism: Mu-Ism Special stephany needs: No Agree to transfusion: Yes Physical Exam Const: COMMON NORMALS: no acute distress, patient oriented x3 and no limitations GENERAL APPEARANCE: cooperative, comfortable and well developed ORIENTATION/CONSCIOUSNESS: Yes awake, Yes oriented to person, Yes oriented to place and Yes oriented to time HENMT: COMMON NORMALS: normocephalic, atraumatic and hearing grossly normal bilaterally HEAD & SCALP: normocephalic and atraumatic OTHER: No angioedema or posterior oropharynx swelling Eye: COMMON NORMALS: Equal, round and reactive pupils present, EOMs intact bilaterally and conjunctivae normal CONJUNCTIVA: Yes conjunctivae normal PUPIL: Yes Equal, round and reactive pupils present Neck/C-Spine: COMMON NORMALS: full ROM, supple and no JVD Resp: COMMON NORMALS: normal respiratory effort, No retractions, No use of accessory muscles and clear to auscultation bilaterally AUSCULTATION: clear to auscultation bilaterally Cardio: COMMON NORMALS: no JVD, regular rate, regular rhythm, No clicks present (Cardio), No murmurs present (Cardio) and No rub (Cardio) RATE: regular rate RHYTHM: regular rhythm GI: COMMON NORMALS: Normal to inspection, nondistended, normoactive bowel sounds present, Soft to palpation and non-tender AUSCULTATION: Yes normoactive bowel sounds PALPATION: Yes Soft to palpation RECTAL EXAM: Yes deferred Extremity: COMMON NORMALS: normal to inspection, full ROM and capillary refill normal Neuro: COMMON NORMALS: patient oriented x3, moves all extremities, no focal motor deficits and no sensory deficits noted SENSORIUM/ORIENTATION: Yes oriented to person, Yes oriented to place and Yes oriented to time Psych: COMMON NORMALS: mental status grossly normal and Normal thought process present THOUGHT PROCESS: Normal thought process present Skin: NARRATIVE SKIN EXAM: Maculopapular rash noted to the inferior aspect of the left upper arm. There is lichenification present as it appears pruritic, and there is yellow crusting over most of the lesions. No linear burrowing noted. Rash does not appear to follow dermatomal pattern. Course Vital Signs: Vital signs: Vital Signs Temperature 97.8 F 04/12/24 15:34 Pulse Rate 95 04/12/24 17:30 Respiratory Rate 16 04/12/24 17:30 Blood Pressure 172/116 04/12/24 17:30 Pulse Oximetry 98 04/12/24 17:30 Oxygen Delivery Me thod Room Air 04/12/24 17:30 MDM - Skin/Abscess/Foreign Bdy Medicial Decision Making Patient presents with a rash. Has had similar in the past, reports primary concern is the itching. Vitals unremarkable and he has remained stable throughout ED course. He was noting some shortness of breath which is not new, chest x-ray was negative. The rash did appear clinically similar to impetigo due to the yellow crusting of the lesions, and lack of other clinical findings such as linear burrowing or dermatomal pattern. Patient has alpha gal, and states this is why he has not taken anything. Will prescribe topical bacitracin and oral doxycycline, and informed to return with any new or worsening symptoms. Patient agrees with plan for discharge home. Lab Data Radiology Impressions Chest X-Ray 04/12/24 18:21 IMPRESSION: No acute cardiopulmonary disease. No radiology studies performed this visit Discharge Plan Discharge Patient Disposition: Home Clinical Impression: Impetigo Condition: Stable Prescriptions: New bacitracin 500 unit/gram ointment 1 applic topical BID Qty: 14 0RF doxycycline monohydrate 25 mg/5 mL suspension for reconstitution 20 ml PO BID 10 Days Qty: 400 0RF No Action hydrochlorothiazide 50 mg tablet 50 mg PO DAILY 30 Days Qty: 30 5RF lisinopril 40 mg tablet 40 mg PO DAILY Qty: 30 5RF zolpidem [Ambien] 5 mg tablet 5 mg PO BEDTIME Qty: 30 5RF clonidine HCl 0.1 mg tablet 0.1 mg PO BID Qty: 60 5RF gabapentin 300 mg capsule 300 mg PO DAILY Qty: 30 5RF Rx Instructions: Take one capsule PO at bedtime. Invega Sustenna 234 mg/1.5 mL syringe 234 mg IM Q30D Qty: 1.5 6RF Rx Instructions: Injection every 30 days amlodipine 10 mg tablet 10 mg PO DAILY Qty: 30 5RF cyproheptadine 4 mg tablet See Rx Instructions .ROUTE .COMPLEX Qty: 30 1RF Dose Instruction: TAKE ONE TABLET BY MOUTH at bedtime Rx Instructions: TAKE ONE TABLET BY MOUTH at bedtime Discharge Orders: Discharge ED (Routine); Ordered 04/12/24 Ordered By: Sid Kessler Referrals: Drake Hernandez, [Primary Care Provider] - Discharge Diet: Advance as tolerated Discharge Activity: Resume usual activity Patient Instructions: Impetigo (ED) Activity Restrictions/Additional Instructions: Topical bacitracin as prescribed. Doxycycline. Follow-up with primary care as needed. Avoid itching. Return with any new or concerning symptoms you may have. Coding Level of Care Code ED A R Collections Rep for Josephg Fwd Documented by User: Americo Sheikh DO 04/13/24 08:16 HPI - Skin/Abscess/Foreign Bdy General: Chief complaint: Skin/Abscess/Foreign Body Stated complaint: Rash left zo lower abd Time Seen by Provider: 04/12/24 17:20 PFSH ED PFSH: Medical History Cannabis dependence, episodic use Schizoaffective disorder, depressive type HTN (hypertension) History of substance use disorder last use of alcohol reported as February 2023 last use of opiates and methamphetamines reported 2017 History of attention deficit hyperactivity disorder (ADHD) Idiopathic mild intellectual disability Chronic post-traumatic stress disorder Clinical diagnosis of COVID-19 Surgical History S/P knee surgery No pertinent past surgical history Family History Other Diabetes Family history of premature coronary artery disease Psychiatric illness Social History Smoking and tobacco/nicotine status: current every day tobacco/nicotine user e- cigarettes E-Cigarette Details: with nicotine E-cig/vape details: 6% one 8,000 puff POD lasts maybe one week Quit status (tobacco/nicotine): not considering quitting Second hand smoke exposure: Yes Alcohol intake: former Former alcohol use details: or 2020 Substance/Drug Use: current Substance/Drug use frequency: few times a month Other substance/drug use details: only when available Adopted: No Caregiver/support person: No Lives independently: Yes Household members: other Details: homeless but stay with a friend Housing: House Marital status: Legally Number of children: 2 Number of grandchildren: 0 Highest education level completed: Some College, No Degree service: No Current occupational status: unemployed Current occupational exposures/hazards: No Pets and animals: Yes Pets & animals: dog(s) Leisure activites: other Leisure activities details: social media Sexually active: No Do you think of yourself as: Straight/Heterosexual Current gender identity: Male Stephany/Tenriism: Mu-Ism Special stephany needs: No Agree to transfusion: Yes Course Vital Signs: Vital signs: Vital Signs Temperature 97.8 F 04/12/24 15:34 Pulse Rate 95 04/12/24 17:30 Respiratory Rate 16 04/12/24 17:30 Blood Pressure 172/116 04/12/24 17:30 Pulse Oximetry 98 04/12/24 17:30 Oxygen Delivery Me thod Room Air 04/12/24 17:30 MDM - Skin/Abscess/Foreign Bdy Medicial Decision Making Patient presents with a rash. Has had similar in the past, reports primary concern is the itching. Vitals unremarkable and he has remained stable throughout ED course. He was noting some shortness of breath which is not new, chest x-ray was negative. The rash did appear clinically similar to impetigo due to the yellow crusting of the lesions, and lack of other clinical findings such as linear burrowing or dermatomal pattern. Patient has alpha gal, and states this is why he has not taken anything. Will prescribe topical bacitracin and oral doxycycline, and informed to return with any new or worsening symptoms. Patient agrees with plan for discharge home. Chart reviewed and patient discussed with midlevel. Agree with assessment and plan. Lab Data Radiology Impressions Chest X-Ray 04/12/24 18:21 IMPRESSION: No acute cardiopulmonary disease. Discharge Plan Discharge Patient Disposition: Home Clinical Impression: Impetigo Condition: Stable Prescriptions: New bacitracin 500 unit/gram ointment 1 applic topical BID Qty: 14 0RF doxycycline monohydrate 25 mg/5 mL suspension for reconstitution 20 ml PO BID 10 Days Qty: 400 0RF No Action hydrochlorothiazide 50 mg tablet 50 mg PO DAILY 30 Days Qty: 30 5RF lisinopril 40 mg tablet 40 mg PO DAILY Qty: 30 5RF zolpidem [Ambien] 5 mg tablet 5 mg PO BEDTIME Qty: 30 5RF clonidine HCl 0.1 mg tablet 0.1 mg PO BID Qty: 60 5RF gabapentin 300 mg capsule 300 mg PO DAILY Qty: 30 5RF Rx Instructions: Take one capsule PO at bedtime. Invega Sustenna 234 mg/1.5 mL syringe 234 mg IM Q30D Qty: 1.5 6RF Rx Instructions: Injection every 30 days amlodipine 10 mg tablet 10 mg PO DAILY Qty: 30 5RF cyproheptadine 4 mg tablet See Rx Instructions .ROUTE .COMPLEX Qty: 30 1RF Dose Instruction: TAKE ONE TABLET BY MOUTH at bedtime Rx Instructions: TAKE ONE TABLET BY MOUTH at bedtime Discharge Orders: Discharge ED (Routine); Ordered 04/12/24 Ordered By: Sid Kessler Referrals: Drake Hernandez, [Primary Care Provider] - Discharge Diet: Advance as tolerated Discharge Activity: Resume usual activity Patient Instructions: Impetigo (ED) Activity Restrictions/Additional Instructions: Topical bacitracin as prescribed. Doxycycline. Follow-up with primary care as needed. Avoid itching. Return with any new or concerning symptoms you may have. Coding Level of Care Code ED A R Collections Rep for Aby Dixon
== END 2024-04-12 19:04 | disposition home or self-care (01) ==
PROVIDERS: Emergency Provider Physician Assistant; PCP Family Medicine
DX: L01.00 Impetigo, unspecified (principal); F17.290 Nicotine dependence, other tobacco product, uncomplicated; I10 Essential (primary) hypertension
CPT/HCPCS: 71045; 99283

== ENCOUNTER 2024-04-15 12:49 | Emergency (ER) | payer OTHER, MEDICAID, SELFPAY ==
[2023-12-06 11:13] VITALS: BP 157/109; BMI 43.6
[2024-04-15 13:23] VITALS: BP 147/108; PULSE 97; RESP 17; TEMP 36.8; O2SAT 98; BMI 43.1
--- NOTE | 2024-04-15 14:07 | ED_ITS ---
Documented by User: MARIO Fields 04/15/24 14:12 HPI - Skin/Abscess/Foreign Bdy General: Chief complaint: Skin/Abscess/Foreign Body Stated complaint: rash Time Seen by Provider: 04/15/24 13:49 Source: patient Mode of arrival: ambulatory Limitations: no limitations History of Present Illness: Patient is a 38-year-old male presenting to the emergency department for the second time this week due to a rash to bilateral arms and lower extremities. He was seen few days ago and diagnosed with impetigo, due to presence of yellow crusted lesions and lichenification indicating it was pruritic. He states that the rash has lingered and is now worse on his right arm. He has been taking oral Doxy and using bacitracin as directed. He denies any systemic signs of il lness such as fever or nausea and vomiting. No reported contact with allergen that he can think of, no new bed linens or clothing, no prolonged exposure outdoors. No oral involvement of the rash. MD complaint: rash Onset (ago): day(s) Location: LUE, RUE, LLE and RLE Associated symptoms: Deny chills, fever(s), nausea or vomiting Treatments prior to arrival: antibiotic and other (Bacitracin) Review of Systems General: Reports: 10 or more systems reviewed and unremarkable except in HPI and below Const: Denies: fever(s), chills or fatigue Eyes: Denies: change in vision ENMT: Denies: throat pain, ear or mastoid pain or nasal discharge Card: Denies: chest pain, palpitations, swelling of feet/ankles or lightheadedness Resp: Denies: dyspnea, productive cough or wheezing GI: Denies: abdominal pain, nausea, vomiting, diarrhea or constipation : Denies: flank pain, difficulty urinating, dysuria or urinary frequency Musc: Denies: neck pain, back pain or joint pain Skin/Breast: Reports: rash and pruritus Neuro: Denies: headache(s), numbness in extremities or weakness in extremities PFS ED PFSH: Medical History Cannabis dependence, episodic use Schizoaffective disorder, depressive type HTN (hypertension) History of substance use disorder last use of alcohol reported as February 2023 last use of opiates and methamphetamines reported 2018 History of attention deficit hyperactivity disorder (ADHD) Idiopathic mild intellectual disability Chronic post-traumatic stress disorder Clinical diagnosis of COVID-19 Surgical History S/P knee surgery No pertinent past surgical history Family History Other Diabetes Family history of premature coronary artery disease Psychiatric illness Social History Smoking and tobacco/nicotine status: current every day tobacco/nicotine user e- cigarettes E-Cigarette Details: with nicotine E-cig/vape details: 6% one 8,000 puff POD lasts maybe one week Quit status (tobacco/nicotine): not considering quitting Second hand smoke exposure: Yes Alcohol intake: former Former alcohol use details: or 2020 Substance/Drug Use: current Substance/Drug use frequency: few times a month Other substance/drug use details: only when available Adopted: No Caregiver/support person: No Lives independently: Yes Household members: other Details: homeless but stay with a friend Housing: House Marital status: Legally Number of children: 2 Number of grandchildren: 0 Highest education level completed: Some College, No Degree service: No Current occupational status: unemployed Current occupational exposures/hazards: No Pets and animals: Yes Pets & animals: dog(s) Leisure activites: other Leisure activities details: social media Sexually active: No Do you think of yourself as: Straight/Heterosexual Current gender identity: Male Stephany/Zoroastrian: Amish Special stephany needs: No Agree to transfusion: Yes Physical Exam Const: COMMON NORMALS: no acute distress, patient oriented x3 and no limitations GENERAL APPEARANCE: cooperative, comfortable and well developed ORIENTATION/CONSCIOUSNESS: Yes awake, Yes oriented to person, Yes oriented to place and Yes oriented to time HENMT: COMMON NORMALS: normocephalic, atraumatic and hearing grossly normal bilaterally HEAD & SCALP: normocephalic and atraumatic OTHER: No oral involvement of the rash or angioedema Eye: COMMON NORMALS: Equal, round and reactive pupils present, EOMs intact bilaterally and conjunctivae normal CONJUNCTIVA: Yes conjunctivae normal PUPIL: Yes Equal, round and reactive pupils present Neck/C-Spine: COMMON NORMALS: full ROM, supple and no JVD Resp: COMMON NORMALS: normal respiratory effort, No retractions, No use of accessory muscles and clear to auscultation bilaterally AUSCULTATION: clear to auscultation bilaterally Cardio: COMMON NORMALS: no JVD, regular rate, regular rhythm, No clicks present (Cardio), No murmurs present (Cardio) and No rub (Cardio) RATE: regular rate RHYTHM: regular rhythm Extremity: COMMON NORMALS: normal to inspection, full ROM and capillary refill normal Neuro: COMMON NORMALS: patient oriented x3, moves all extremities, no focal motor deficits and no sensory deficits noted SENSORIUM/ORIENTATION: Yes oriented to person, Yes oriented to place and Yes oriented to time Psych: COMMON NORMALS: mental status grossly normal and Normal thought process present THOUGHT PROCESS: Normal thought process present Skin: NARRATIVE SKIN EXAM: Maculopapular rash to bilateral forearms and shins. This appears improved from prior examination a few days ago. There is further evidence of lichenification from scratching. No linear burrows noted. No surrounding erythema. Course Vital Signs: Vital signs: Vital Signs Temperature 98.2 F 04/15/24 14:29 Pulse Rate 89 04/15/24 14:29 Respiratory Rate 16 04/15/24 14:29 Blood Pressure 142/99 04/15/24 14:29 Pulse Oximetry 99 04/15/24 14:29 Oxygen Delivery Me thod Room Air 04/15/24 13:23 MDM - Skin/Abscess/Foreign Bdy Medicial Decision Making Patient presents for the second time this week due to evaluation of a rash. There is improvement of the rash though it is now worse on the right forearm. He has still been itching. He notes he has been taking bacitracin and the oral doxycycline. Will prescribe topical steroid and oral steroid to help with the inflammation, though the rash appears to be contact dermatitis at this point. Instructed him to avoid any potential contact with allergens, and to follow-up with primary care if the rash persists for further dermatologic evaluation. No systemic signs of illness or concerning signs on examination today. Patient will be started on steroids and continue taking medications. He agrees with plan and will be discharged home. This case was reviewed by supervising physician, Dr. Velazquez, who agrees with disposition. No radiology studies performed this visit Discharge Plan Discharge Patient Disposition: Home Clinical Impression: Contact dermatitis Condition: Stable Prescriptions: New triamcinolone acetonide 0.1 % cream 1 applic topical BID Qty: 15 0RF prednisone 20 mg tablet 60 mg PO ONCE 5 Days Qty: 15 0RF No Action hydrochlorothiazide 50 mg tablet 50 mg PO DAILY 30 Days Qty: 30 5RF lisinopril 40 mg tablet 40 mg PO DAILY Qty: 30 5RF zolpidem [Ambien] 5 mg tablet 5 mg PO BEDTIME Qty: 30 5RF clonidine HCl 0.1 mg tablet 0.1 mg PO BID Qty: 60 5RF gabapentin 300 mg capsule 300 mg PO DAILY Qty: 30 5RF Rx Instructions: Take one capsule PO at bedtime. Invega Sustenna 234 mg/1.5 mL syringe 234 mg IM Q30D Qty: 1.5 6RF Rx Instructions: Injection every 30 days amlodipine 10 mg tablet 10 mg PO DAILY Qty: 30 5RF cyproheptadine 4 mg tablet See Rx Instructions .ROUTE .COMPLEX Qty: 30 1RF Dose Instruction: TAKE ONE TABLET BY MOUTH at bedtime Rx Instructions: TAKE ONE TABLET BY MOUTH at bedtime bacitracin 500 unit/gram ointment 1 applic topical BID Qty: 14 0RF doxycycline monohydrate 25 mg/5 mL suspension for reconstitution 20 ml PO BID 10 Days Qty: 400 0RF Discharge Orders: Discharge ED (Routine); Ordered 04/15/24 Ordered By: Sid Kessler Referrals: Drake Hernandez, [Primary Care Provider] - Discharge Diet: Usual diet Discharge Activity: Resume usual activity Patient Instructions: Dermatitis (ED) Activity Restrictions/Additional Instructions: Prednisone and topical steroid as directed. Continue taking bacitracin and your oral doxycycline. Follow-up with primary care for any further evaluation. Avoid any potential triggers. Coding Level of Care Code ED Catheterization Laboratory Technician for [facility] F[facility] Documented by User: Americo Sheikh DO 04/15/24 14:47 HPI - Skin/Abscess/Foreign Bdy General: Chief complaint: Skin/Abscess/Foreign Body Stated complaint: rash Time Seen by Provider: 04/15/24 13:49 PFSH ED PFSH: Medical History Cannabis dependence, episodic use Schizoaffective disorder, depressive type HTN (hypertension) History of substance use disorder last use of alcohol reported as February 2023 last use of opiates and methamphetamines reported 2017 History of attention deficit hyperactivity disorder (ADHD) Idiopathic mild intellectual disability Chronic post-traumatic stress disorder Clinical diagnosis of COVID-19 Surgical History S/P knee surgery No pertinent past surgical history Family History Other Diabetes Family history of premature coronary artery disease Psychiatric illness Social History Smoking and tobacco/nicotine status: current every day tobacco/nicotine user e- cigarettes E-Cigarette Details: with nicotine E-cig/vape details: 6% one 8,000 puff POD lasts maybe one week Quit status (tobacco/nicotine): not considering quitting Second hand smoke exposure: Yes Alcohol intake: former Former alcohol use details: or 2020 Substance/Drug Use: current Substance/Drug use frequency: few times a month Other substance/drug use details: only when available Adopted: No Caregiver/support person: No Lives independently: Yes Household members: other Details: homeless but stay with a friend Housing: House Marital status: Legally Number of children: 2 Number of grandchildren: 0 Highest education level completed: Some College, No Degree service: No Current occupational status: unemployed Current occupational exposures/hazards: No Pets and animals: Yes Pets & animals: dog(s) Leisure activites: other Leisure activities details: social media Sexually active: No Do you think of yourself as: Straight/Heterosexual Current gender identity: Male Stpehany/Zoroastrian: Amish Special stephany needs: No Agree to transfusion: Yes Course Vital Signs: Vital signs: Vital Signs Temperature 98.2 F 04/15/24 14:29 Pulse Rate 89 04/15/24 14:29 Respiratory Rate 16 04/15/24 14:29 Blood Pressure 142/99 04/15/24 14:29 Pulse Oximetry 99 04/15/24 14:29 Oxygen Delivery Me thod Room Air 04/15/24 13:23 MDM - Skin/Abscess/Foreign Bdy Medicial Decision Making Patient presents for the second time this week due to evaluation of a rash. There is improvement of the rash though it is now worse on the right forearm. He has still been itching. He notes he has been taking bacitracin and the oral doxycycline. Will prescribe topical steroid and oral steroid to help with the inflammation, though the rash appears to be contact dermatitis at this point. Instructed him to avoid any potential contact with allergens, and to follow-up with primary care if the rash persists for further dermatologic evaluation. No systemic signs of illness or concerning signs on examination today. Patient will be started on steroids and continue taking medications. He agrees with plan and will be discharged home. This case was reviewed by supervising physician, Dr. Velazquez, who agrees with disposition. Chart reviewed Discharge Plan Discharge Patient Disposition: Home Clinical Impression: Contact dermatitis Condition: Stable Prescriptions: New triamcinolone acetonide 0.1 % cream 1 applic topical BID Qty: 15 0RF prednisone 20 mg tablet 60 mg PO ONCE 5 Days Qty: 15 0RF No Action hydrochlorothiazide 50 mg tablet 50 mg PO DAILY 30 Days Qty: 30 5RF lisinopril 40 mg tablet 40 mg PO DAILY Qty: 30 5RF zolpidem [Ambien] 5 mg tablet 5 mg PO BEDTIME Qty: 30 5RF clonidine HCl 0.1 mg tablet 0.1 mg PO BID Qty: 60 5RF gabapentin 300 mg capsule 300 mg PO DAILY Qty: 30 5RF Rx Instructions: Take one capsule PO at bedtime. Invega Sustenna 234 mg/1.5 mL syringe 234 mg IM Q30D Qty: 1.5 6RF Rx Instructions: Injection every 30 days amlodipine 10 mg tablet 10 mg PO DAILY Qty: 30 5RF cyproheptadine 4 mg tablet See Rx Instructions .ROUTE .COMPLEX Qty: 30 1RF Dose Instruction: TAKE ONE TABLET BY MOUTH at bedtime Rx Instructions: TAKE ONE TABLET BY MOUTH at bedtime bacitracin 500 unit/gram ointment 1 applic topical BID Qty: 14 0RF doxycycline monohydrate 25 mg/5 mL suspension for reconstitution 20 ml PO BID 10 Days Qty: 400 0RF Discharge Orders: Discharge ED (Routine); Ordered 04/15/24 Ordered By: Sid Kessler Referrals: Drake Hernandez, [Primary Care Provider] - Discharge Diet: Usual diet Discharge Activity: Resume usual activity Patient Instructions: Dermatitis (ED) Activity Restrictions/Additional Instructions: Prednisone and topical steroid as directed. Continue taking bacitracin and your oral doxycycline. Follow-up with primary care for any further evaluation. Avoid any potential triggers. Coding Level of Care Code ED Catheterization Laboratory Technician for Aby Dixon
[2024-04-15 14:29] VITALS: BP 142/99; PULSE 89; RESP 16; TEMP 36.8; O2SAT 99
== END 2024-04-15 14:15 | disposition home or self-care (01) ==
PROVIDERS: Emergency Provider Physician Assistant; PCP Family Medicine
DX: L25.9 Unspecified contact dermatitis, unspecified cause (principal); F17.290 Nicotine dependence, other tobacco product, uncomplicated
CPT/HCPCS: 99283

== ENCOUNTER 2024-04-26 19:05 | Inpatient (IN) | payer OTHER, MEDICAID, SELFPAY ==
[2023-12-06 11:13] VITALS: BP 157/109; BMI 43.6
[2024-04-26 19:12] VITALS: BP 158/111; PULSE 105; RESP 16; TEMP 36.8; O2SAT 97; BMI 43.7
--- NOTE | 2024-04-26 19:20 | ED.C_ITS ---
HPI - Psych 2 General: Chief Complaint: Psychiatric Symptoms Stated Complaint: SI Time Seen by Provider: 04/26/24 19:15 Source: patient Mode of arrival: ambulatory Limitations: no limitations History of Present Illness: 38-year-old male with history depression states he has been having suicidal ideations over the last 3 to 4 hours he states he has a plan to slit his wrist to kill himself he denies any worsening improving factors. Associated symptoms: Reports depression and suicidal ideation Review of Systems 2 Const: Denies: fever(s), chills, body aches or change in appetite ENMT: Denies: throat pain or dental pain Card: Denies: chest pain Resp: Denies: dyspnea GI: Denies: abdominal pain, nausea, vomiting or diarrhea Musc: Denies: neck pain or back pain Skin/Breast: Denies: rash Neuro: Denies: headache(s) Psych: Reports: depression and suicidal ideation PFSH ED 2 PFSH: Medical History Cannabis dependence, episodic use Schizoaffective disorder, depressive type HTN (hypertension) History of substance use disorder last use of alcohol reported as February 2023 last use of opiates and methamphetamines reported 2017 History of attention deficit hyperactivity disorder (ADHD) Idiopathic mild intellectual disability Chronic post-traumatic stress disorder Clinical diagnosis of COVID-19 Surgical History S/P knee surgery No pertinent past surgical history Family History Other Diabetes Family history of premature coronary artery disease Psychiatric illness Social History Smoking and tobacco/nicotine status: current every day tobacco/nicotine user e- cigarettes E-Cigarette Details: with nicotine E-cig/vape details: 6% one 8,000 puff POD lasts maybe one week Quit status (tobacco/nicotine): not considering quitting Second hand smoke exposure: Yes Alcohol intake: former Former alcohol use details: or 2020 Substance/Drug Use: current Substance/Drug use frequency: few times a month Other substance/drug use details: only when available Adopted: No Caregiver/support person: No Lives independently: Yes Household members: other Details: homeless but stay with a friend Housing: House Marital status: Legally Number of children: 2 Number of grandchildren: 0 Highest education level completed: Some College, No Degree service: No Current occupational status: unemployed Current occupational exposures/hazards: No Pets and animals: Yes Pets & animals: dog(s) Leisure activites: other Leisure activities details: social media Sexually active: No Do you think of yourself as: Straight/Heterosexual Current gender identity: Male Stephany/Congregation: [employer] Special stephany needs: No Agree to transfusion: Yes Physical Exam 2 Const: COMMON NORMALS: no acute distress, patient oriented x3 and healthy appearing HENMT: COMMON NORMALS: normocephalic and atraumatic HEAD & SCALP: n ormocephalic and atraumatic Eye: COMMON NORMALS: Equal, round and reactive pupils present and EOMs intact bilaterally PUPIL: Yes Equal, round and reactive pupils present Neck/C-Spine: COMMON NORMALS: full ROM and supple Chest: COMMONS NORMALS: normal inspection of the chest Resp: COMMON NORMALS: normal respiratory effort Cardio: COMMON NORMALS: regular rate RATE: regular rate Extremity: COMMON NORMALS: normal to inspection and full ROM Neuro: COMMON NORMALS: patient oriented x3, moves all extremities and no focal motor deficits Psych: COMMON NORMALS: mental status grossly normal, Normal thought process present and cooperative THOUGHT PROCESS: Normal thought process present T HOUGHT CONTENT: Yes Suicidality present Skin: COMMON NORMALS: no rashes or lesions noted and no wounds GENERAL SKIN EXAM: no rashes or lesions noted Course 2 Vital Signs: Vital signs: Vital Signs Temperature 98.2 F 04/26/24 19:12 Pulse Rate 105 H 04/26/24 19:12 Respiratory Rate 16 04/26/24 19:12 Blood Pressure 158/111 04/26/24 19:12 Pulse Oximetry 97 04/26/24 19:12 Oxygen Delivery Me thod Room Air 04/26/24 19:12 MDM - Psych Medical Decision Making Patient presents here with suicidal ideations he is medically cleared will admit at this time spoke to Dr. Dexter and he agrees with plan Medical Records I reviewed the patient's medical records. Lab Data I reviewed the patient's lab results. 04/26/24 19:29 04/26/24 19:29 Laboratory Results WBC 9.54 10^3/uL (3.29-11.43) 05/29/24 19: RBC 4.48 10^6/uL (3.85-5.65) 04/26/24 19: Hgb 13.60 g/dL (11.27-16.99) 04/26/24 19: Hct 39.3 % (37-53) 04/26/24 19: MCV 87.7 fl (82-101) 04/26/24 19: MCH 30.4 pg (27-33) 04/26/24 19: MCHC 34.6 g/dL (30-55) 04/26/24 19: RDW 12.2 % (12.1-15.1) 04/26/24: Plt Count 239 10^3/cmm (157-399) 04/26/24 19: MPV 8.7 fL (7.4-10.4) 04/26/24 19: Neut % (Auto) 49.3 % 04/26/24 19: Lymph % (Auto) 37.0 % 04/26/24 19: Phillips % (Auto) 6.8 % 04/26/24 19: Eos % (Auto) 5.8 % 04/26/24 19: Baso % (Auto) 0.7 % 04/26/24: Neut # (Auto) 4.70 10^3/uL (1.8-7.7) 04/26/24 19: Lymph # (Auto) 3.5 10^3/uL (0.8-4.8) 04/26/24: Phillips # (Auto) 0.7 10^3/uL (0.2-0.9) 04/26/24 19: Eos # (Auto) 0.6 10^3/uL (0.0-0.8) 04/26/24: Baso # (Auto) 0.1 10^3/uL (0.0-0.1) 04/26/24 19: Nucleated RBC % (auto) 0 % 04/26/24 19: Nucleated RBCs # 0.0 /100WBC 04/26/24 19: No radiology studies performed this visit Discharge Plan Discharge Patient Disposition: Admitted As Inpatient Clinical Impression: Suicidal ideation Condition: Stable Coding Level of Care Code ED Construction Management Instructor for Aby Dixon
--- NOTE | 2024-04-26 19:24 | PC.NURSE ---
Patient was dressed out of all street clothing and personal belongings. Patient was placed in green scrubs, placed in cleared room with PSA present. All belongings were labeled and placed in bags in designated belongings area by room.
--- NOTE | 2024-04-26 19:45 | PC.NURSE ---
This RN and [employer] [employer] into room to serve 96 hr hold paperwork. Pt verbalized no further questions at this time, calm and cooperative.
[2024-04-26 19:46] LABS: Basophils # 0.1 10^3/uL (0.0-0.1); Basophils % 0.7 %; Eosinophils # 0.6 10^3/uL (0.0-0.8); Eosinophils % 5.8 %; Hematocrit 39.3 % (37-53); Lymphocytes # 3.5 10^3/uL (0.8-4.8); Mean Corpuscular HGB Conc 34.6 g/dL (30-55); Mean Corpuscular Hemoglobin 30.4 pg (27-33); Mean Corpuscular Volume 87.7 fl (82-101); Mean Platelet Volume 8.7 fL (7.4-10.4); Monocytes # 0.7 10^3/uL (0.2-0.9); Monocytes % 6.8 %; Neutrophils % 49.3 %; Nucleated Red Blood Cells % 0 %; Platelet Count 239 10^3/cmm (157-399); Red Blood Count 4.48 10^6/uL (3.85-5.65); Red Cell Distribution Width 12.2 % (12.1-15.1); White Blood Count 9.54 10^3/uL (3.29-11.43)
[2024-04-26 20:07] LABS: Alanine Aminotransferase 53 U/L (0-41); Alkaline Phosphatase 77 U/L (40-130); Anion Gap 14.8 (5-19); Aspartate Amino Transferase 37 U/L (0-40); Blood Urea Nitrogen 13 mg/dL (6-20); Calcium 8.2 mg/dL (8.5-10.5); Carbon Dioxide 22 mmol/L (22-29); Chloride 105 mmol/L (98-107); Creatinine Clr Calc Pharmacy 200.2514; Globulin 3.3 g/dL (1.3-4.6); Glomerular Filtration Rate 107.6 mL/min (90-130); Glucose 108 mg/dL (65-115); Osmolality Calculated 287 mOsm/kg (285-295); Potassium 3.8 mmol/L (3.5-5.1); Sodium 138 mmol/L (136-145); Total Bilirubin 0.3 mg/dL (0.15-1.2); Total Protein 7.3 g/dL (6.6-8.7)
[2024-04-26 20:09] LABS: Acetaminophen < 5.0 ug/mL (10-30); Alcohol Level < 10 mg/dL (0-10); Salicylate < 0.3 mg/dL (3-10)
[2024-04-26 20:12] LABS: Amphetamines Screen Urine Negative (Negative); Barbiturates Screen Urine Negative (Negative); Benzodiazepines Screen Urine Negative (Negative); Cocaine Screen Urine Negative (Negative); Opiate Screen Urine Negative (Negative); PCP Screen Urine Negative (Negative); THC Screen Urine Positive (Negative)
--- NOTE | 2024-04-26 20:56 | PC.NURSE ---
Report was called to Clarice SAUCEDO in [facility]. All questions and concerns addressed at time of report.
[2024-04-26 21:25] VITALS: BP 170/126; PULSE 97; RESP 17; TEMP 36.5; O2SAT 98
[2024-04-26] MEDS: gabapentin 300 mg Capsule PO (22:23)
[2024-04-26] MEDS: zolpidem 5 mg Tablet PO (22:23)
--- NOTE | 2024-04-27 04:24 | P.NPUHP_ITS ---
Providers/Chief Complaint 2 Admitting Physician: Nasir Dexter MD Primary Care Provider: Drake Hernandez DO Chief Complaint: SI HPI NPU History of Present Illness Wicho Lugo is a 38 year old male who presented to the emergency department with the following report: Chief Complaint: Psychiatric Symptoms Stated Complaint: SI Time Seen by Provider: 04/26/24 19:15 Source: patient Mode of arrival: ambulatory Limitations: no limitations History of Present Illness: 38-year-old male with history depression states he has been having suicidal ideations over the last 3 to 4 hours he states he has a plan to slit his wrist to kill himself he denies any worsening improving factors. Associated symptoms: Reports depression and suicidal ideation. He was admitted to the neuropsychiatric unit for definitive treatment of those issues. He is known to this instructional writer through numerous inpatient stays and consults and presents a couple weeks after his last admission with similar complaints of suicidality and concern for malingering. An excerpt of his last hospitalization evaluation/discharge summary is included below for context and the fact that there are no substantive changes. He reports that he is working at [employer] and things are going well that way and reporting that he is following up with his outpatient services and medications but reports he just feels at a loss after an individual connected with where he lives decided to evict him with no notice and he denies her having any reason. This sent him into a tailspin of dealing with being on the streets again and he reports she got overwhelmed and came here before he follow through with his suicidal thoughts and harm to himself. He reports being tired of this fight and just wishing it was over. He was unable to contract for safety. Per his 04/10/2024 [facility] inpatient discharge summary: Discharge Diagnosis (1) Schizoaffective disorder, depressive type: Status: Chronic (2) Cannabis dependence, episodic use: Status: Chronic (3) Chronic post-traumatic stress disorder: Status: Chronic (4) Allergy to alpha-gal: Status: Acute Reason for Visit Reason for Visit: SI Brief History: History of Present Illness Wicho Lugo is a 38 year old male With a history of multiple inpatient psychiatric hospitalizations who presented to the emergency department with a plan to jump off of a bridge and attempt to complete suicide. Patient was admitted to the neuropsychiatric unit for further diagnosis and treatment. Patient reports that he had stopped his medication several months ago and states that he has been feeling worse since he had discontinued it. He reports that he is hearing voices. He reports that he had made a stupid decision to come here but states that he does need to get back on his medications. Patient had been attempting to get follow-up for his medication management at the [facility] but had not been successful at restarting his medications. He reports that he has been feeling more depressed. He reports increased feelings of hopelessness. He endorses having increased paranoia. He reports that he has been homeless and states that he has been able to keep a job and is hopeful about finding a place to live as he had previously been living at [facility] for nearly 2 years. Patient had reported that he had thrown out all of his medications 1 month ago. He reports no other substantial changes in his life since his last hospitalization 2 months ago. Excerpt from NPU Discharge Summary from 01/05/24 Diagnoses at Discharge Discharge Diagnosis (1) Cannabis dependence, episodic use: Status: Chronic Reason for Visit SI Brief History: History of Present Illness Wicho Lugo is a 38 year old male who presented to the emergency department with the following report: Chief Complaint: Psychiatric Symptoms Stated Complaint: SI Time Seen by Provider: 01/02/24 22:28 History of Present Illness: 38-year-old male patient comes in today with complaints of suicidal thoughts. Patient has a history of suicidal ideation, major depressive disorder, and schizoaffective disorder. [facility] for similar complaints. Patient has some superficial linear flores to his left forearm which he reports he used a box hinge and lock attacher to cut himself. Patient said he did this instead of using methamphetamines. Patient reports that he has been using his prescription medications as directed for his blood pressure and psychiatric disorder. Patient has had 1 shot of Invega since being discharged from the stress center and is to be scheduled for another injection soon. complaint: suicidal ideation Onset (ago): day(s) Duration: getting worse History of same: Yes Relieving factors: other (Using methamphetamines) Exacerbating factors: none Context: other (Homelessness) Associated psychiatric symptoms: depression Associated symptoms: Reports depression and suicidal ideation Treatments prior to arrival: none If self harm: admits thoughts of self harm and has plan (Cutting his wrist) He was admitted to the neuropsychiatric unit for definitive treatment of those issues. Patient presented today having discharged about 4 weeks ago. An excerpt of his last discharge summary is included below for context and the fact that there are no substantive changes since his last stay. He presents reporting that he has continued to stay sober from the standpoint of alcohol and methamphetamine. He continues to use cannabis. He reports that he has been consistent with his medication and continuing his appointments. He reports that he got very frustrated with his lack of employment and being stuck in the same situation that has plagued him for the past 6 months or more. He reports in a state of frustration he did the superficial cuts on his left inner forearm. He reports that he is upset with himself that he did that but he felt torn between doing something like that and relapsing. He reports that he did not want to relapse. He reports that he continues to balance between his sister and being homeless. He reports that he feels like a burden to his sister and so if it is not too cold he sleeps out in a tent somewhere but when he gets too cold he does go to his sister's place. He reports that he knows that he can make it come back of sorts if he can just get a job but he just feels like nobody is willing to hire him and it continues the cycle of despair. We discussed the risks, benefits and alternatives of reviewing his medications and consider changes and he understood and agreed to proceed as is documented in this note. He reports that the Neurontin 300 mg p.o. nightly was just recently started and he wants to see if that helps at all. He reports that he has been in the [employer] program in the past but that he had essentially graduated from it and was doing well but then he lost his job, lost his residence, lost his car and he finds himself at the end of that cycle again looking for employment and trying not to be discouraged. Per his 12/08/2023 [facility] inpatient psychiatric discharge summary: Discharge Diagnosis (1) Depression: Status: Inactive Qualifiers: Active/Remission status: currently active Depression Type: major depressive disorder Major depression episode severity: severe Major depression recurrence: recurrent Psychotic features: without psychotic features Qualified Code(s): F33.2 - Major depressive disorder, recurrent severe without psychotic features (2) Suicidal ideation: Status: Resolved (3) Cannabis dependence, episodic use: Status: Chronic Reason for Visit Reason for Visit: SI Brief History: History of Present Illness Wicho Lugo is a 38 year old male Chief Complaint: Psychiatric Symptoms Stated Complaint: SI Time Seen by Provider: 12/05/23 17:58 Source: patient Mode of arrival: ambulatory History of Present Illness: 38-year-old male states that he is suicidal with a plan of cutting his wrist. He states that he just feels down he has nowhere to go nowhere to stay has been want to kill himself patient has been admitted here before denies any worsening improving factors. Associated symptoms: Reports depression and suicidal ideation He was admitted to the neuropsychiatric unit for definitive treatment of those issues. He presents today known well to this instructional writer through past inpatient hospitalizations. Many of those hospitalizations have been marked by significant psychosocial stressors generally including either being unemployed or homeless. He initially denied this but ultimately confirmed that he has been homeless for some time and was just staying with his sister and things ran their course. He had been doing fairly well maintaining his medication through the Invega Sustenna injection but it does appear that he may be 3 weeks removed from what he should have gotten his last injection. We agreed we would do some research to find out where things stood injection rodriguez. We also talked about him working with the social work team to find out if there were any options that were feasible for him to discharge to. He endorsed significant frustration about not being able to find a job. He reports that he probably is doing less well because of not having the medication on board. An excerpt of his last discharge summary is included below for context and the fact that there are no substantive changes in his psychosocial history. Per his 08/08/2023 [facility] inpatient psychiatric discharge summary: Discharge Diagnosis (1) Depression: Status: Inactive Qualifiers: Active/Remission status: currently active Depression Type: major depressive disorder Major depression episode severity: severe Major depression recurrence: recurrent Psychotic features: without psychotic features Qualified Code(s): F33.2 - Major depressive disorder, recurrent severe without psychotic features (2) Suicidal ideation: Status: Resolved (3) Cannabis dependence, episodic use: Status: Chronic Reason for Visit Reason for Visit: MHE Brief History: History of Present Illness Wicho Lugo is a 37 year old male who presented to the emergency department with the following report: Chief Complaint: Psychiatric Symptoms Stated Complaint: MHE Time Seen by Provider: 08/04/23 14:23 Source: patient Mode of arrival: ambulatory Limitations: no limitations History of Present Illness: 29-year-old male has extensive psychiatric history states he has been having increasing depression over the last month with increased thoughts of suicidality has no specific plan but states he just does not feel like living anymore patient was seen at [facility] brought over here for admission he voluntarily wants to be admitted to the psych smiley he has no worsening improving factors. Associated symptoms: Reports depression and suicidal ideation. He was admitted to the neuropsychiatric unit for definitive treatment of those issues. He presents today for his third hospitalization this year. The last 1 was January 2023 an excerpt is included below secondary to no substantive changes since that time. He presents today reporting that he came to the hospital because he is at a point where he just wants to . He reports that he is lost all desire to live and that he is done with being in this world and just ready to go to the next. He reports being jobless, homeless and without any family supports. He reported that the best thing for him to do is to diet. He reports that he has been off of his medication for 1 to 2 months secondary to the lapse of his medication. 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 He reports losing his job and not having a new job yet was a significant factor in his feelings and just feeling that he is working hard and not getting anywhere. He continues to be in less than desirable situations with housing having to check up with whoever will except him. He reports that his overall situation has made him feel so sad with his situation and feeling despair, hopeless, helpless and worthless and with significant suicidal thoughts and urges. We discussed the risks benefits and alternatives of restarting his medications and trying to see if we can get him back with Medicaid so that he can continue on his medications. And he understood and agreed to proceed as is documented in this note. Per his 02/26/2023 [facility] inpatient psychiatric discharge summary: Discharge Diagnosis (1) Schizoaffective disorder: Status: Acute (2) Suicidal ideation: Status: Resolved Reason for Visit Reason for Visit: SI Brief History: History of Present Illness Wicho Lugo is a 37 year old male who presented to the emergency department with the following report: Chief Complaint: ER Hold Stated Complaint: SI Time Seen by Provider: 02/22/23 22:00 Source: patient Mode of arrival: ambulatory Limitations: no limitations History of Present Illness: 37-year-old male he states that he has been having suicidal thoughts he states he had increasing depression states he just no longer wants to live. He states he has a plan of slitting his wrist and felt like he may do it today. Denies any worsening improving factors. Associated symptoms: Reports depression and suicidal ideation. He was admitted to the neuropsychiatric unit for definitive treatment of those issues. He presents today reporting that he has been taking his medications as prescribed, but that he is having increased depression and increasing suicidal thoughts. He continues to endorse that his addiction has remained under control which his UDS and BAL were negative. He reports that he had been taking his medication effectively until about a month ago. He denied any major or substantive changes since he was last seen by this instructional writer 1-2 months ago and excerpt of his last psychiatric evaluation by this instructional writer is included below for context. Per his 12/25/2022 [facility] inpatient discharge summary: Discharge Diagnosis (1) Non compliance w medication regimen: Status: Inactive (2) Depression, major, recurrent, severe with psychosis: Status: Ruled-out (3) History of substance use disorder: Status: Chronic Permanent problem details: last use of alcohol reported as Jul 2021 last use of opiates and methamphetamines reported 2018 last use of marijuana Oct 2022 Reason for Visit Reason for Visit: mhe Brief History: History of Present Illness Wicho Lugo is a 37 year old male who presented to the emergency department the following report: Chief Complaint: Psychiatric Symptoms Stated Complaint: mhe Time Seen by Provider: 12/24/22 15:48 History of Present Illness: Mr. Lugo is a 37-year-old male with history of hypertension, substance abuse, PTSD presenting to the emergency department for suicidal ideation and depression. He reports worsening symptoms for a number of weeks and intentionally injured his wrist about 5 days ago without told people it was an accident. He reports visual hallucinations and no longer feels safe and believes he may be a danger to himself. He reports sleep disturbance and appetite disturbance as well as nightmares. He is no longer taking his medications for depression. Intensity symptoms is moderate to severe. Course is worsened. No other specific changes in health, exacerbating, or alleviating factors identified. Onset (ago): week(s) Duration: getting worse History of same: Yes Relieving factors: none Exacerbating factors: none Associated psychiatric symptoms: depression and visual hallucinations If self harm: admits thoughts of self harm and has acted on plan He was admitted to the neuropsychiatric unit for definitive treatment of those issues. He presents today much as he has in other hospitalizations where this instructional writer asked him to know him fairly well. Reporting depression and being off of his medication. He continues to endorse that his addiction has remained under control which his UDS and BAL were negative. He reports that he had been taking his medication effectively until about a month ago. He reports he simply ran out of prescriptions because he is working out and he was having difficulty making appointments that would jive with his work schedule. We had a discussion about the crisis center and how this could have been likely avoided with that new service. We also discussed getting him back on his Prozac which he reports is been very effective. We discussed length of stay and the possibility of this being a shorter stay but then we continue that conversation in the morning. He denied any major or substantive changes since he was last seen by this instructional writer about 13 months ago and excerpt of his last psychiatric evaluation by this instructional writer is included below for context. We also lengthy discussion about him maintaining his appointments at [facility] so that he can avoid inpatient stays. Per his 11/07/2021 [facility] inpatient psychiatric evaluation: History of Present Illness Wicho Lugo is a 36 year old male who presented to the emergency department with the following report: Chief Complaint: Psychiatric Symptoms Stated Complaint: SI Time Seen by Provider: 11/06/21 19:39 Source: patient and EMS Mode of arrival: EMS Limitations: no limitations History of Present Illness: HPI Narrative: 36-year-old male who is here from [facility] with suicidal ideation. He states that he has been having increasing depression been having thoughts of suicide all day he appears very anxious and fidgety here he states he has a plan to kill himself by jumping out in traffic. He does have a history of psychiatric issues along with alcoholism denies any alcohol intake today or recently he denies any worsening improving factors. Associated symptoms: Reports depression and suicidal ideation. He was admitted to the neuropsychiatric unit for definitive treatment of those issues. He presents today reporting that he had multiple inpatient hospitalizations the 6-7 here. His outpatient services at [facility]. He is currently not taking medication he reports having stopped a month or more ago. He could not clarify how that occurred given that he is at [facility] and was understanding that he assisted with medication. He reports that he does not smoke cigarettes, drink alcohol smoke marijuana use any other illicit drugs he denies rehabs or DUIs. He reports the nidus of this situation is that he and his girlfriend broke up about 7 days ago. He reports that that really made him sad he reports he started having thoughts to jump out of the vehicle or run on the ministry in the middle of traffic. Reports that he is having depression, anxiety and mood swings. We agreed that we would work with his outpatient providers to get a handle on what happened with the medication but we discussed the risk benefits and alternatives of starting Risperdal and Lamictal for mood stabilization and he understood agreed proceed as is documented in this note. He denies having any actual suicide attempts but does report suicidal thoughts. An excerpt of his last note from May is acute on chronic. It appears that the only changes he has is possibly stable housing through [facility]. Per his 06/20/2021 [facility] inpatient psychiatric evaluation: History of Present Illness Wicho Lugo is a 35 year old male who presented to the emergency department with the following report: Chief Complaint: Psychiatric Symptoms Stated Complaint: si Time Seen by Provider: 06/19/21 21:51 History of Present Illness: HPI Narrative: 35-year-old male patient comes in tonight with suicidal thoughts and ideation. Patient reports that he has been holding a knife considering on cutting his wrists or his throat for about 3 hours tonight. Patient then become more upset and called EMS for assistance. Patient has been on fluoxetine and Zyprexa for his depression but he stopped taking it 1 week ago. Patient admits to cannabis use but the last time he used was 2 weeks ago. Patient does routinely smoke tobacco. Patient denies any alcohol or other illicit drug use. Patient has had 2 previous admissions to the psychiatric unit once in November and once in January. Patient states that in 2011 he lost his baby daughter who was stillborn at 37 weeks and his brother who was 19. [facility]. Patient is not homeless he works at the [employer]. Patient reports that she is for the last 2 weeks he has had worsening depression to where he stopped taking his medication and now has had increasing thoughts of suicide. Patient is cooperative. Patient does seek voluntary admission to the neuropsychiatric unit. complaint: suicidal ideation Onset (ago): day(s) Duration: intermittent and getting worse Relieving factors: none Exacerbating factors: none Associated symptoms: Reports depression and suicidal ideation Treatments prior to arrival: none If self harm: admits thoughts of self harm and has plan Details of plan: He wants to use a knife to cut his wrists and throat. He was admitted to the neuropsychiatric unit for definitive treatment of those issues. He presents today reporting more or less that he had a bad day in the retrospect for which she would have worked through it versus coming to the hospital. He has been going to [facility] and reports he been doing really well. He has a job. He reports that over the past week or so he has been doing this./As well and that he started making stupid thoughts. Yesterday. His desire is to discharge but we discussed the risk-benefit and alternatives of him staying overnight is making sure that that is the right move possibly increasing his Prozac and he understood and agreed proceed as is documented in this note. He denies substantive changes since he was last seen by this instructional writer back in January 2021 and he was seen for evaluation at [facility] in February of the below for context. Per his 03/27/2021 [facility] psychiatric evaluation: [facility] History and Physical Time In: 09:30 Time Out: 10:30 Chief Complaint: Trying to better self and get treatment for depression and anxiety History of Present Illness: Wicho presents to behavioral health care for psychiatric evaluation. States he is here to try to get himself better and to treat his depression and suicidal thoughts. He was released from longterm October 2020 after completing time for charge of statutory rape. He states since that time he has been homeless. He describes his mood as depressed, states he has no energy, states he cries easily. States he feels alone. Feels people are out to get him. Describes seeing black figures/shadows outside his car when he was sleeping in his car. He denies suicidal thoughts today. Most recent suicidal thoughts was about 2 weeks ago. No homicidal thoughts. Denies auditory and visual hallucinations today. Describes his mind racing. Has had difficulty sleeping. States he has difficulty falling asleep and he wakes up often. Reports nightmares of seeing his brother and his child. He was prescribed medication when he was hospitalized in October. This medication includes Seroquel 200 mg at bedtime, hydroxyzine 50 mg at bedtime, doxepin 10 mg at bedtime, trazodone 200 mg at bedtime, Prozac 20 mg daily, and prazosin 2 mg at bedtime. He states he has not taken this medication on a regular basis. He describes taking the medication about once a week. He verbalizes that no medicine has ever seem to work for him but also verbalizes that he has not taken it consistently. He currently does not have income or insurance coverage. He states he has medication that were given to him when he was at the stress unit. He is agreeable to restarting his medication today and taking on a consistent basis. He is agreeable for individual psychotherapy. Wicho denies any history of alexandro. Wicho does report hopeful thoughts/positive thoughts with treatment. He states staff at the psychiatric unit and behavioral health care has been helpful in securing housing for him. He states they will help him find a job as well. Wicho reports he smokes marijuana daily as it allows him to escape his problems and not think about stress and worry for a while. He states he has stopped smoking since Wednesday in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
[2024-04-27 05:52] VITALS: BP 155/94; PULSE 80; RESP 16; TEMP 36.6; O2SAT 96
[2024-04-27] MEDS: bacitracin ointment Pkt 1 EACH TOPICAL ×2 (08:28→17:42)
[2024-04-27] MEDS: nicotine 2 mg Gum BUCCAL ×4 (08:28→17:42)
[2024-04-27 08:29] VITALS: BP 141/107
[2024-04-27] MEDS: hydroCHLOROthiazide 25 mg Tablet 50 MG PO (08:29)
[2024-04-27] MEDS: amlodipine 10 mg Tablet PO (08:29)
[2024-04-27] MEDS: cloNIDine 0.1 mg Tablet 0.100000000000000006 MG PO ×2 (08:29→17:45)
[2024-04-27] MEDS: lisinopril 20 mg Tablet 40 MG PO (08:30)
[2024-04-27 13:43] VITALS: BP 126/85; PULSE 85; RESP 20; TEMP 36.5; O2SAT 97
[2024-04-27 17:45] VITALS: BP 152/113
[2024-04-27 20:53] VITALS: BP 135/82; PULSE 92; RESP 16; TEMP 36.4; O2SAT 96
[2024-04-27] MEDS: acetaminophen 325 mg Tablet 650 MG PO (21:33)
[2024-04-27] MEDS: zolpidem 5 mg Tablet PO (21:34)
[2024-04-27] MEDS: gabapentin 300 mg Capsule PO (21:34)
[2024-04-28 06:00] VITALS: BP 130/80; PULSE 77; RESP 16; TEMP 36.5; O2SAT 95
[2024-04-28] MEDS: cloNIDine 0.1 mg Tablet 0.100000000000000006 MG PO ×2 (08:57→18:01)
[2024-04-28] MEDS: lisinopril 20 mg Tablet 40 MG PO (08:57)
[2024-04-28] MEDS: amlodipine 10 mg Tablet PO (08:57)
[2024-04-28] MEDS: hydroCHLOROthiazide 25 mg Tablet 50 MG PO (08:57)
--- NOTE | 2024-04-28 12:12 | P.NPUPN_ITS ---
Subjective NPU 2 Subjective: Patient presented today reporting that things are unchanged. He continues to endorse lethality. He continued to be isolative and reported that she could not stand being around people right now. Discussed Dr. Crenshaw returning tomorrow and taking over the case. He denied current side effects to his medications. Mental Status Exam 2 MSE Comments: This is an obese versus morbidly obese white male in hospital scrubs with limited grooming and eye contact.? No abnormal movements except for mild psychomotor agitation. He was cooperative with exam in mild to moderate distress.? Speech was slightly decreased in rate and normal in volume.? Mood described as depressed, his affect was restricted and subdued. Thought process was linear and organized.? Thought content: Patient endorsed suicidal ideation and denied homicidal ideation. There were no delusions reported or noted. He denied any auditory or visual hallucinations and did not appear to be responding to internal stimuli. Attention and concentration were intact and memory appeared somewhat reliable but none were formally tested.? He is alert and oriented x3.? Insight was poor and judgment appear limited and impulse control limited versus impaired. Vitals/I&O/Wt Last Vital Signs Temp 97.7 F 04/28/24 06:00 Pulse 77 04/28/24 06:00 Resp 16 04/28/24 06:00 BP 130/80 04/28/24 06:00 Pulse Ox 95 04/28/24 06:00 O2 Del Method Room Air 04/28/24 06:00 Weight last 48 hrs Weight 158.757 kg Data NPU 04/26/24 19:29 04/26/24 19:29 A&P Assessment and plan (1) Schizoaffective disorder, depressive type: (2) Cannabis dependence, episodic use: (3) Chronic post-traumatic stress disorder: (4) Allergy to alpha-gal: Plan This is a 38-year-old white male with a long history of trauma, past history of addiction and chronic suicidal thoughts who presents as he has multiple times recently reporting worsening mood wanting to secondary to his life being so crappy and endorsing compliance to medications. 1.? Continue current medication. 2.? Continue every 15 minute checks for safety. 3.? Encourage individual, group and milieu therapies. 4. Encourage sober living treatment after discharge at the highest level of care to which he is willing to commit. 5. Again concern for malingering secondary to lack of solid residential options. May need to explore opportunities in [place]. Involuntary Hold Information 2 96 Hour Hold: 96 Hour Involuntary Admission: Yes 96 Hour Hold Ending Date: 05/02/24 96 Hour Hold Ending Time: 19:30 Attestations NPU 2 Medical Necessity Statement*: Inpatient hospitalization is medically necessary and deemed to ?be ?the clinically appropriate intervention ?at this time.? We will monitor/initiate medications and make changes as indicated.? The patient?s likely length of stay 3-5 days. Coding Level of Care Code Acute Code for Chg Fwd Diagnoses Schizoaffective disorder, depressive type F25.1 Cannabis dependence, episodic use F12.20 Chronic post-traumatic stress disorder F43.12 Allergy to alpha-gal Z91.018
[2024-04-28] MEDS: nicotine 2 mg Gum BUCCAL ×3 (12:33→18:48)
[2024-04-28] MEDS: quetiapine 25 mg Tablet PO (12:53)
[2024-04-28 14:00] VITALS: BP 106/62; PULSE 91; RESP 14; TEMP 36.7; O2SAT 93
[2024-04-28 18:01] VITALS: BP 149/94
[2024-04-28 19:38] VITALS: BP 116/77; PULSE 92; RESP 18; O2SAT 97
[2024-04-28] MEDS: zolpidem 5 mg Tablet PO (21:41)
[2024-04-28] MEDS: acetaminophen 325 mg Tablet 650 MG PO (21:41)
[2024-04-28] MEDS: gabapentin 300 mg Capsule PO (21:41)
[2024-04-29 06:00] VITALS: BP 154/74; PULSE 81; RESP 17; O2SAT 95
[2024-04-29] MEDS: amlodipine 10 mg Tablet PO (07:58)
[2024-04-29 07:59] VITALS: BP 139/93
[2024-04-29] MEDS: cloNIDine 0.1 mg Tablet 0.100000000000000006 MG PO ×2 (07:59→17:38)
[2024-04-29] MEDS: lisinopril 20 mg Tablet 40 MG PO (07:59)
[2024-04-29] MEDS: nicotine 2 mg Gum BUCCAL ×5 (08:02→18:34)
[2024-04-29 14:00] VITALS: BP 128/68; PULSE 96; RESP 17; TEMP 36.6; O2SAT 97
[2024-04-29] MEDS: quetiapine 25 mg Tablet PO (16:45)
[2024-04-29 20:05] VITALS: BP 113/79; PULSE 107; RESP 18; O2SAT 97
--- NOTE | 2024-04-29 20:35 | W.PM.NPUPNS ---
Subjective NPU Subjective: 38-year-old male with a history of schizoaffective disorder admitted with suicidal ideation and depression. The patient continued to lament about how he felt suicidal and that nothing was helping him. He had reported that he was struggling at work. He reported no side effects from his medication. He had been compliant on the milieu. He had continued to report difficulties with sleep despite taking the Ambien. He had reported that he continued to feel uncomfortable about leaving the hospital. Mental Status Exam MSE Comments: This is an obese versus morbidly obese white male in hospital scrubs with limited grooming and eye contact.? No abnormal movements except for continued mild psychomotor agitation. He was cooperative with exam in moderate distress.? Speech was slightly decreased in rate and normal in volume.? Mood described as depressed. His affect was restricted and subdued. Thought process was linear and organized.? Thought content: Patient endorsed suicidal ideation and denied homicidal ideation. There were no delusions reported or noted. He denied any auditory or visual hallucinations and did not appear to be responding to internal stimuli. Attention and concentration were intact and memory appeared somewhat reliable but none were formally tested.? He is alert and oriented x3.? Insight was poor and judgment appear limited and impulse control limited versus impaired. Vitals/I&O/Wt Last Vital Signs Temp 97.8 F 04/29/24 14:00 Pulse 107 H 04/29/24 20:05 Resp 18 04/29/24 20:05 BP 113/79 04/29/24 20:05 Pulse Ox 97 04/29/24 20:05 O2 Del Method Room Air 04/28/24 14:00 Data NPU 04/26/24 19:29 04/26/24 19:29 A&P Assessment and plan (1) Schizoaffective disorder, depressive type: (2) Cannabis dependence, episodic use: (3) Chronic post-traumatic stress disorder: (4) Allergy to alpha-gal: Plan This is a 38-year-old white male with a long history of trauma, past history of addiction and chronic suicidal thoughts who presents as he has multiple times recently reporting worsening mood wanting to secondary to his life being so crappy and endorsing compliance to medications. 1.? Continue current medication. 2.? Continue every 15 minute checks for safety. 3.? Encourage individual, group and milieu therapies. 4. Encourage sober living treatment after discharge at the highest level of care to which he is willing to commit. 5. Continued concern for malingering secondary to lack of solid residential options. Patient remains homeless. May need to explore opportunities in [place]. Involuntary Hold Information 96 Hour Hold: 96 Hour Involuntary Admission: Yes 96 Hour Hold Ending Date: 05/02/24 96 Hour Hold Ending Time: 19:30 Attestations NPU Medical Necessity Statement*: Inpatient hospitalization is medically necessary and deemed to ?be ?the clinically appropriate intervention ?at this time.? We will monitor/initiate medications and make changes as indicated.? The patient?s likely length of stay 2-3 days. Coding Level of Care Code Acute Code for [facility] Fwd Diagnoses Schizoaffective disorder, depressive type F25.1 Cannabis dependence, episodic use F12.20 Chronic post-traumatic stress disorder F43.12 Allergy to alpha-gal Z91.018
[2024-04-29] MEDS: zolpidem 5 mg Tablet PO (20:55)
[2024-04-29] MEDS: gabapentin 300 mg Capsule PO (20:55)
[2024-04-30 06:00] VITALS: BP 96/61; PULSE 77; RESP 18; O2SAT 96
[2024-04-30] MEDS: hydroCHLOROthiazide 25 mg Tablet 50 MG PO (08:36)
[2024-04-30] MEDS: lisinopril 20 mg Tablet 40 MG PO (08:36)
[2024-04-30] MEDS: hyDROXYzine 25 mg Capsule 50 MG PO ×2 (08:36→19:20)
[2024-04-30] MEDS: nicotine 2 mg Gum BUCCAL ×3 (08:36→20:00)
[2024-04-30] MEDS: amlodipine 10 mg Tablet PO (08:36)
[2024-04-30 08:39] VITALS: BP 112/74
[2024-04-30] MEDS: cloNIDine 0.1 mg Tablet 0.100000000000000006 MG PO ×2 (08:39→17:55)
[2024-04-30 14:00] VITALS: BP 131/83; PULSE 98; RESP 17; TEMP 36.4; O2SAT 96
--- NOTE | 2024-04-30 17:19 | P.NPUPN_ITS ---
Subjective NPU 2 Subjective: 38-year-old male with a history of schiz oaffective disorder admitted with suicidal ideation and depression. He had continued to report depressed mood. He had continued to report that he felt horrible and stated that he continued to feel angry and stated that he felt like jumping off of a bridge . He had appeared minimally engaged in treatment and appeared to isolate himself on the milieu. He had reported continued sleep continuity disruption. He reported frequent mood swings and reported continued stress and anxiety with his homelessness. Mental Status Exam 2 MSE Comments: This is an obese versus morbidly obese white male in hospital scrubs with poor grooming and eye contact.? No abnormal movements except for continued mild psychomotor agitation. He was cooperative with exam in moderate distress.? Speech was slightly decreased in rate and normal in volume.? Mood described as depressed. His affect was flat. Thought process was linear and organized.? Thought content: Patient endorsed suicidal ideation and denied homicidal ideation. There were no delusions reported or noted. He denied any auditory or visual hallucinations and did not appear to be responding to internal stimuli. Attention and concentration were intact and memory appeared somewhat reliable but none were formally tested.? He is alert and oriented x3.? Insight was feeble and judgment appear impaired and impulse control limited versus impaired. Vitals/I&O/Wt Last Vital Signs Temp 97.6 F 04/30/24 14:00 Pulse 98 04/30/24 14:00 Resp 17 04/30/24 14:00 BP 131/83 04/30/24 14:00 Pulse Ox 96 04/30/24 14:00 O2 Del Method Room Air 04/28/24 14:00 Weight last 48 hrs Weight 161.479 kg Data NPU 04/26/24 19:29 04/26/24 19:29 A&P Assessment and plan (1) Schizoaffective disorder, depressive type: (2) Cannabis dependence, episodic use: (3) Chronic post-traumatic stress disorder: (4) Allergy to alpha-gal: Plan This is a 38-year-old white male with a long history of trauma, past history of addiction and chronic suicidal thoughts who presents as he has multiple times recently reporting worsening mood wanting to secondary to his life being so crappy and endorsing compliance to medications. 1.? Continue current medication including IM paliperidone and increase gabapentin 300mg bid. 2.? Continue every 15 minute checks for safety. 3.? Encourage individual, group and milieu therapies. 4. Encourage sober living treatment after discharge at the highest level of care to which he is willing to commit. 5. Continued concern for malingering secondary to lack of solid residential options. Patient remains homeless. May need to explore opportunities in [place]. Involuntary Hold Information 2 96 Hour Hold: 96 Hour Involuntary Admission: Yes 96 Hour Hold Ending Date: 05/02/24 96 Hour Hold Ending Time: 19:30 Attestations NPU 2 Medical Necessity Statement*: Inpatient hospitalization is medically necessary and deemed to ?be ?the clinically appropriate intervention ?at this time.? We will monitor/initiate medications and make changes as indicated.? The patient?s likely length of stay 2-3 days. Coding Level of Care Code Acute Code for Chg Fwd Diagnoses Schizoaffective disorder, depressive type F25.1 Cannabis dependence, episodic use F12.20 Chronic post-traumatic stress disorder F43.12 Allergy to alpha-gal Z91.018
[2024-04-30 17:55] VITALS: BP 132/88
[2024-04-30] MEDS: gabapentin 300 mg Capsule PO (17:55)
[2024-04-30 19:42] VITALS: BP 104/65; PULSE 91; RESP 18; TEMP 36.4; O2SAT 96
[2024-04-30] MEDS: trazodone 50 mg Tablet PO (20:49)
[2024-04-30] MEDS: haloperidol 5 mg Tablet PO (20:49)
[2024-04-30] MEDS: zolpidem 5 mg Tablet PO (20:49)
[2024-05-01 06:00] VITALS: BP 103/66; PULSE 78; RESP 18; O2SAT 97
[2024-05-01 08:51] VITALS: BP 146/81
[2024-05-01] MEDS: lisinopril 20 mg Tablet 40 MG PO (08:51)
[2024-05-01] MEDS: cloNIDine 0.1 mg Tablet 0.100000000000000006 MG PO ×2 (08:51→18:00)
[2024-05-01] MEDS: hydroCHLOROthiazide 25 mg Tablet 50 MG PO (08:51)
[2024-05-01] MEDS: amlodipine 10 mg Tablet PO (08:51)
[2024-05-01] MEDS: gabapentin 300 mg Capsule PO ×2 (09:03→19:44)
[2024-05-01] MEDS: nicotine 2 mg Gum BUCCAL ×2 (11:32→16:50)
[2024-05-01] MEDS: hyDROXYzine 25 mg Capsule 50 MG PO (11:32)
--- NOTE | 2024-05-01 13:31 | PC.NURSE ---
NEW ORDERS RECEIVED FROM DR. VENCES TO GIVE VIVTROL 380 MG IM NOW AND THEN PT TO TAKE MONTHLY. THIS RN CALLED [facility] TO CALLED IN THE VIVITROL ORDER. PHARMACY TO NOTIFY NPU WHEN MEDICATION ARRIVES. PT EDUCATED ON NEW MEDICATION. VERBALIZED UNDERSTANDING.
[2024-05-01 13:46] VITALS: BP 147/65; PULSE 84; RESP 17; TEMP 36.4; O2SAT 97
--- NOTE | 2024-05-01 15:03 | PC.NURSE ---
PHARMACY CALLED AND STATED THEY NEEDED A PRIOR AUTH FOR THE VIVITROL INJECTION. RN IS UNABLE TO FIND A DIAGNOSIS CODE FOR MEDICATION. PT HAS NOT COME INTO THE HOSPITAL ER OR NPU WITH A ELEVATED BAL. DR. VENCES NOTIFIED AND ORDERS FOR VIVITROL DISCONTINUED. PT NOTIFIED AND VERBALIZED UNDERSTANDING.
[2024-05-01] MEDS: haloperidol 5 mg Tablet PO (16:50)
--- NOTE | 2024-05-01 16:58 | P.NPUPN_ITS ---
Subjective NPU 2 Subjective: 38-year-old male with a history of schiz oaffective disorder admitted with suicidal ideation and depression. Patient reported intense mood swings. He had continued to isolate himself on the milieu. He had indicated to having consumed alcohol for the past 5 months and reported that he had continued to struggle with managing cravings for methamphetamine. He had acknowledged having made a mistake by leaving the hospital AGAINST MEDICAL ADVICE a month ago and stated that he did not take his oral Invega with his initial dosing of 234 mg of IM Invega 1 month ago. The patient reported having problems with mood swings and stated that he continued to feel anxious about his living situation when he leaves here. Mental Status Exam 2 MSE Comments: This is an obese versus morbidly obese white male in hospital scrubs with poor grooming and eye contact.? No abnormal movements except for continued mild psychomotor agitation. He was cooperative with exam in mild distress.? Speech was normal in rate and normal in volume.? Mood described as irritated. His affect was mood congruent and irritable. Thought process was linear and organized.? Thought content: Patient endorsed suicidal ideation and denied homicidal ideation. There were no delusions reported or noted. He denied any auditory or visual hallucinations and did not appear to be responding to internal stimuli. Attention and concentration were intact and memory appeared somewhat reliable but none were formally tested.? He is alert and oriented x3.? Insight was poor and judgment appear impaired and impulse control limited versus impaired. Vitals/I&O/Wt Last Vital Signs Temp 97.5 F L 05/01/24 13:46 Pulse 84 05/01/24 13:46 Resp 17 05/01/24 13:46 BP 147/65 05/01/24 13:46 Pulse Ox 97 05/01/24 13:46 O2 Del Method Room Air 04/28/24 14:00 Weight last 48 hrs Weight 161.479 kg Data NPU 04/26/24 19:29 04/26/24 19:29 A&P Assessment and plan (1) Schizoaffective disorder, depressive type: (2) Cannabis dependence, episodic use: (3) Chronic post-traumatic stress disorder: (4) Allergy to alpha-gal: Plan This is a 38-year-old white male with a long history of trauma, past history of addiction and chronic suicidal thoughts who presents as he has multiple times recently reporting worsening mood wanting to secondary to his life being so crappy and endorsing compliance to medications. 1.? Continue current medication including IM paliperidone while restarting oral invega 6mg as patient has not achieved steady state dosing of invega yet and increase gabapentin 300mg tid. Consider naltrexone to target alcohol abuse. 2.? Continue every 15 minute checks for safety. 3.? Encourage individual, group and milieu therapies. 4. Encourage sober living treatment after discharge at the highest level of care to which he is willing to commit. 5. Continued concern for malingering secondary to lack of solid residential options. Patient remains homeless. May need to explore opportunities in [place]. Involuntary Hold Information 2 96 Hour Hold: 96 Hour Involuntary Admission: Yes 96 Hour Hold Ending Date: 05/02/24 96 Hour Hold Ending Time: 19:30 Attestations NPU 2 Medical Necessity Statement*: Inpatient hospitalization is medically necessary and deemed to ?be ?the clinically appropriate intervention ?at this time.? We will monitor/initiate medications and make changes as indicated.? The patient?s likely length of stay 2-3 days. Coding Level of Care Code Acute Code for Chg Fwd Diagnoses Schizoaffective disorder, depressive type F25.1 Cannabis dependence, episodic use F12.20 Chronic post-traumatic stress disorder F43.12 Allergy to alpha-gal Z91.018
[2024-05-01] MEDS: paliperidone ER 6 mg Tablet PO (17:33)
[2024-05-01 18:00] VITALS: BP 128/87
[2024-05-01] MEDS: trazodone 50 mg Tablet PO (19:43)
[2024-05-01] MEDS: zolpidem 5 mg Tablet PO (19:44)
[2024-05-01] MEDS: ibuprofen 600 mg Tablet PO (19:45)
[2024-05-01 21:33] VITALS: BP 117/74; PULSE 86; RESP 18; TEMP 36.5; O2SAT 95
[2024-05-02 06:00] VITALS: BP 118/65; PULSE 73; RESP 16; TEMP 36.5; O2SAT 98
[2024-05-02 08:47] VITALS: BP 138/92
[2024-05-02] MEDS: gabapentin 300 mg Capsule PO ×3 (08:47→20:10)
[2024-05-02] MEDS: lisinopril 20 mg Tablet 40 MG PO (08:47)
[2024-05-02] MEDS: paliperidone ER 6 mg Tablet PO (08:47)
[2024-05-02] MEDS: amlodipine 10 mg Tablet PO (08:47)
[2024-05-02] MEDS: cloNIDine 0.1 mg Tablet 0.100000000000000006 MG PO ×2 (08:47→18:10)
[2024-05-02] MEDS: nicotine 2 mg Gum BUCCAL ×4 (08:47→16:46)
[2024-05-02] MEDS: hydroCHLOROthiazide 25 mg Tablet 50 MG PO (08:47)
[2024-05-02] MEDS: hyDROXYzine 25 mg Capsule 50 MG PO ×2 (11:22→19:27)
[2024-05-02 13:51] VITALS: BP 85/52; PULSE 90; RESP 16; TEMP 36.6; O2SAT 95
[2024-05-02] MEDS: haloperidol 5 mg Tablet PO (14:38)
[2024-05-02 14:48] VITALS: BP 117/75; PULSE 59; RESP 16; TEMP 37.1; O2SAT 99
--- NOTE | 2024-05-02 15:12 | P.NPUPN_ITS ---
Subjective NPU 2 Subjective: 38-year-old male with a history of schiz oaffective disorder, antisocial personality traits, admitted with suicidal ideation and depression. Patient reported some fleeting suicidal thoughts. He had reported that he continued to feel anxious and stressed about his living situation. He reported having panic attacks but was unable to describe what he was feeling currently. He had reported feeling somewhat calmer with the initiation of oral Invega. He had continued to isolate himself on the unit. He had continued to state that he would like to save up enough money to go to the [facility]. Mental Status Exam 2 MSE Comments: This is an obese versus morbidly obese white male in hospital scrubs with poor grooming and poor eye contact.? Mild psychomotor retardation appreciated. He was cooperative with exam in mild distress.? Speech was normal in rate and normal in volume.? Mood described as stressed. His affect was mood congruent and irritable. Thought process was linear and organized.? Thought content: Patient endorsed suicidal ideation and denied homicidal ideation. There were no delusions reported or noted. He denied any auditory or visual hallucinations and did not appear to be responding to internal stimuli. Attention and concentration were intact and memory appeared somewhat reliable but none were formally tested.? He is alert and oriented x3.? Insight was poor and judgment appear impaired and impulse control limited versus impaired. Vitals/I&O/Wt Last Vital Signs Temp 98.8 F 05/02/24 14:48 Pulse 59 L 05/02/24 14:48 Resp 16 05/02/24 14:48 BP 117/75 05/02/24 14:48 Pulse Ox 99 05/02/24 14:48 O2 Del Method Room Air 05/02/24 14:48 Data NPU 04/26/24 19:29 04/26/24 19:29 A&P Assessment and plan (1) Schizoaffective disorder, depressive type: (2) Cannabis dependence, episodic use: (3) Chronic post-traumatic stress disorder: (4) Allergy to alpha-gal: Plan This is a 38-year-old white male with a long history of trauma, past history of addiction and chronic suicidal thoughts who presents as he has multiple times recently reporting worsening mood wanting to secondary to his life being less than optimal and endorsing compliance to medications. 1.? Continue current medication including IM paliperidone while restarting oral invega 6mg as patient has not achieved steady state dosing of invega yet and increase gabapentin 300mg tid. Consider naltrexone to target alcohol abuse. 2.? Continue every 15 minute checks for safety. 3.? Encourage individual, group and milieu therapies. 4. Encourage sober living treatment after discharge at the highest level of care to which he is willing to commit. 5. Continued concern for malingering secondary to lack of solid residential options. Patient remains homeless. May need to explore opportunities in [place]. Ordering Invega 156mg IM per protocol. Involuntary Hold Information 2 96 Hour Hold: 96 Hour Involuntary Admission: Yes 96 Hour Hold Ending Date: 05/02/24 96 Hour Hold Ending Time: 19:30 Attestations NPU 2 Medical Necessity Statement*: Inpatient hospitalization is medically necessary and deemed to ?be ?the clinically appropriate intervention ?at this time.? We will monitor/initiate medications and make changes as indicated.? The patient?s likely length of stay 2-3 days. Coding Level of Care Code Acute Code for [facility] Fwd Diagnoses Schizoaffective disorder, depressive type F25.1 Cannabis dependence, episodic use F12.20 Chronic post-traumatic stress disorder F43.12 Allergy to alpha-gal Z91.018
--- NOTE | 2024-05-02 15:46 | PC.NURSE ---
spoke with Jen at [facility]. per verbal doctor neri stopped refills on paliperidone palmitate 234mg with 6 refills. medication dosage to be changed.
[2024-05-02] MEDS: paliperidone palmitate 156 mg Syringe IM (16:53)
[2024-05-02 18:10] VITALS: BP 137/83
[2024-05-02 20:02] VITALS: BP 119/77; PULSE 88; RESP 18; TEMP 36.5; O2SAT 95
[2024-05-02] MEDS: zolpidem 5 mg Tablet PO (20:10)
[2024-05-02] MEDS: trazodone 50 mg Tablet PO (20:10)
[2024-05-03 06:00] VITALS: BP 104/72; PULSE 87; RESP 18; TEMP 36.4; O2SAT 94
[2024-05-03] MEDS: paliperidone ER 6 mg Tablet PO (08:03)
[2024-05-03] MEDS: amlodipine 10 mg Tablet PO (08:03)
[2024-05-03] MEDS: gabapentin 300 mg Capsule PO ×2 (08:03→14:00)
[2024-05-03] MEDS: lisinopril 20 mg Tablet 40 MG PO (08:04)
[2024-05-03] MEDS: hydroCHLOROthiazide 25 mg Tablet 50 MG PO (08:04)
[2024-05-03] MEDS: cloNIDine 0.1 mg Tablet 0.100000000000000006 MG PO (08:04)
[2024-05-03] MEDS: nicotine 2 mg Gum BUCCAL (10:51)
--- NOTE | 2024-05-03 13:31 | P.NPUDS_ITS ---
Diagnoses at Discharge Discharge Diagnosis (1) Schizoaffective disorder, depressive type: Status: Chronic (2) Cannabis dependence, episodic use: Status: Chronic (3) Chronic post-traumatic stress disorder: Status: Chronic (4) Allergy to alpha-gal: Status: Acute Reason for Visit Reason for Visit: SI Brief History: History of Present Illness Wicho Lugo is a 38 year old male who presented to the emergency department with the following report: Chief Complaint: Psychiatric Symptoms Stated Complaint: SI Time Seen by Provider: 04/26/24 19:15 Source: patient Mode of arrival: ambulatory Limitations: no limitations History of Present Illness: 38-year-old male with history depression states he has been having suicidal ideations over the last 3 to 4 hours he states he has a plan to slit his wrist to kill himself he denies any worsening improving factors. Associated symptoms: Reports depression and suicidal ideation. He was admitted to the neuropsychiatric unit for definitive treatment of those issues. He is known to this video game script writer through numerous inpatient stays and consults and presents a couple weeks after his last admission with similar complaints of suicidality and concern for malingering. An excerpt of his last hospitalization evaluation/discharge summary is included below for context and the fact that there are no substantive changes. He reports that he is working at [employer] and things are going well that way and reporting that he is following up with his outpatient services and medications but reports he just feels at a loss after an individual connected with where he lives decided to evict him with no notice and he denies her having any reason. This sent him into a tailspin of dealing with being on the streets again and he reports she got overwhelmed and came here before he follow through with his suicidal thoughts and harm to himself. He reports being tired of this fight and just wishing it was over. He was unable to contract for safety. Per his 04/10/2024 [facility] inpatient discharge summary: Discharge Diagnosis (1) Schizoaffective disorder, depressive type: Status: Chronic (2) Cannabis dependence, episodic use: Status: Chronic (3) Chronic post-traumatic stress disord er: Status: Chronic (4) Allergy to alpha-gal: Status: Acute Reason for Visit Reason for Visit: SI Brief History: History of Present Illness Wicho Lugo is a 38 year old male With a history of multiple inpatient psychiatric hospitalizations who presented to the emergency department with a plan to jump off of a bridge and attempt to complete suicide. Patient was admitted to the neuropsychiatric unit for further diagnosis and treatment. Patient reports that he had stopped his medication several months ago and states that he has been feeling worse since he had discontinued it. He reports that he is hearing voices. He reports that he had made a stupid decision to come here but states that he does need to get back on his medications. Patient had been attempting to get follow-up for his medication management at the [facility] but had not been successful at restarting his medications. He reports that he has been feeling more depressed. He reports increased feelings of hopelessness. He endorses having increased paranoia. He reports that he has been homeless and states that he has been able to keep a job and is hopeful about finding a place to live as he had previously been living at [facility] for nearly 2 years. Patient had reported that he had thrown out all of his medications 1 month ago. He reports no other substantial changes in his life since his last hospitalization 2 months ago. Excerpt from [facility] Discharge Summary from 01/05/24 Diagnoses at Discharge Discharge Diagnosis (1) Cannabis dependence, episodic use: Status: Chronic Reason for Visit SI Brief History: History of Present Illness Wicho Lugo is a 38 year old male who presented to the emergency department with the following report: Chief Complaint: Psychiatric Symptoms Stated Complaint: SI Time Seen by Provider: 01/02/24 22:28 History of Present Illness: 38-year-old male patient comes in today with complaints of suicidal thoughts. Patient has a history of suicidal ideation, major depressive disorder, and schizoaffective disorder. Patient was recently released from [facility] on 17 December for similar complaints. Patient has some superficial linear flores to his left forearm which he reports he used a paperboard box maker to cut himself. Patient said he did this instead of using methamphetamines. Patient reports that he has been using his prescription medications as directed for his blood pressure and psychiatric disorder. Patient has had 1 shot of Invega since being discharged from the stress center and is to be scheduled for another injection soon. complaint: suicidal ideation Onset (ago): day(s) Duration: getting worse History of same: Yes Relieving factors: other (Using methamphetamines) Exacerbating factors: none Context: other (Homelessness) Associated psychiatric symptoms: depression Associated symptoms: Reports depression and suicidal ideation Treatments prior to arrival: none If self harm: admits thoughts of self harm and has plan (Cutting his wrist) He was admitted to the neuropsychiatric unit for definitive treatment of those issues. Patient presented today having discharged about 4 weeks ago. An exce rpt of his last discharge summary is included below for context and the fact that there are no substantive changes since his last stay. He presents reporting that he has continued to stay sober from the standpoint of alcohol and methamphetamine. He continues to use cannabis. He reports that he has been consistent with his medication and continuing his appointments. He reports that he got very frustrated with his lack of employment and being stuck in the same situation that has plagued him for the past 6 months or more. He reports in a state of frustration he did the superficial cuts on his left inner forearm. He reports that he is upset with himself that he did that but he felt torn between doing something like that and relapsing. He reports that he did not want to relapse. He reports that he continues to balance between his sister and being homeless. He reports that he feels like a burden to his sister and so if it is not too cold he sleeps out in a tent somewhere but when he gets too cold he does go to his sister's place. He reports that he knows that he can make it come back of sorts if he can just get a job but he just feels like nobody is willing to hire him and it continues the cycle of despair. We discussed the risks, benefits and alternatives of reviewing his medications and consider changes and he understood and agreed to proceed as is documented in this note. He reports that the Neurontin 300 mg p.o. nightly was just recently started and he wants to see if that helps at all. He reports that he has been in the [employer] program in the past but that he had essentially graduated from it and was doing well but then he lost his job, lost his residence, lost his car and he finds himself at the end of that cycle again looking for employment and trying not to be discouraged. Per his 12/08/2023 [facility] inpatient psychiatric discharge summary: Discharge Diagnosis (1) Depression: Status: Inactive Qualifiers: Active/Remission status: currently active Depression Type: major depressive disorder Major depression episode severity: severe Major depression recurrence: recurrent Psychotic features: without psychotic features Qualified Code(s): F33.2 - Major depressive disorder, recurrent severe without psychotic features (2) Suicidal ideation: Status: Res olved (3) Cannabis dependence, episodic use: Status: Chronic Reason for Visit Reason for Visit: SI Brief History: History of Present Illness Wicho Lugo is a 38 year old male Chief Complaint: Psychiatric Symptoms Stated Complaint: SI Time Seen by Provider: 12/05/23 17:58 Source: patient Mode of arrival: ambulatory History of Present Illness: 38-year-old male states that he is suici selena with a plan of cutting his wrist. He states that he just feels down he has nowhere to go nowhere to stay has been want to kill himself patient has been admitted here before denies any worsening improving factors. Associated symptoms: Reports depression and suicidal ideation He was admitted to the neuropsychiatric unit for definitive treatment of those issues. He presents today known well to this video game script writer through past inpatient hospitalizations. Many of those hospitalizations have been marked by significant psychosocial stressors generally including either being unemployed or homeless. He initially denied this but ultimately confirmed that he has been homeless for some time and was just staying with his sister and things ran their course. He had been doing fairly well maintaining his medication through the Invega Sustenna injection but it does appear that he may be 3 weeks removed from what he should have gotten his last injection. We agreed we would do some research to find out where things stood injection rodriguez. We also talked about him working with the social work team to find out if there were any options that were feasible for him to discharge to. He endorsed significant frustration about not being able to find a job. He reports that he probably is doing less well because of not having the medication on board. An excerpt of his last discharge summary is included below for context and the fact that there are no substantive changes in his psychosocial history. Per his 08/08/2023 [facility] inpatient psychiatric discharge summary: Discharge Diagnosis (1) Depression: Status: Inactive Qualifiers: Active/Remission status: currently active Depression Type: major depressive disorder Major depression episode severity: severe Major depression recurrence: recurrent Psychotic features: without psychotic features Qualified Code(s): F33.2 - Major depressive disorder, recurrent severe without psychotic features (2) Suicidal ideation: Status: Res olved (3) Cannabis dependence, episodic use: Status: Chronic Reason for Visit Reason for Visit: MHE Brief History: History of Present Illness Wicho Lugo is a 37 year old male who presented to the emergency department with the following report: Chief Complaint: Psychiatric Symptoms Stated Complaint: MHE Time Seen by Provider: 08/04/23 14:23 Source: patient Mode of arrival: ambulatory Limitations: no limitations History of Present Illness: 29-year-old male has extensive psychiatr ic history states he has been having increasing depression over the last month with increased thoughts of suicidality has no specific plan but states he just does not feel like living anymore patient was seen at [facility] brought over here for admission he voluntarily wants to be admitted to the psych smiley he has no worsening improving factors. Associated symptoms: Reports depression and suicidal ideation. He was admitted to the neuropsychiatric unit for definitive treatment of those issues. He presents today for his third hospitalization this year. The last 1 was January 2023 an excerpt is included below secondary to no substantive changes since that time. He presents today reporting that he came to the hospital because he is at a point where he just wants to . He reports that he is lost all desire to live and that he is done with being in this world and just ready to go to the next. He reports being jobless, homeless and without any family supports. He reported that the best thing for him to do is to diet. He reports that he has been off of his medication for 1 to 2 months secondary to the lapse of his medication. He reports he does have a grappler and that is the person that brought him up here. He reports losing his job and not having a new job yet was a significant factor in his feelings and just feeling that he is working hard and not getting anywhere. He continues to be in less than desirable situations with housing having to check up with whoever will except him. He reports that his overall situation has made him feel so sad with his situation and feeling despair, hopeless, helpless and worthless and with significant suicidal thoughts and urges. We discussed the risks benefits and alternatives of restarting his medications and trying to see if we can get him back with Medicaid so that he can continue on his medications. And he understood and agreed to proceed as is documented in this note. Per his 02/26/2023 [facility] inpatient psychiatric discharge summary: Discharge Diagnosis (1) Schizoaffective disorder: Statu s: Acute (2) Suicidal ideation: Status: Reso lved Reason for Visit Reason for Visit: SI Brief History: History of Present Illness Wicho Lugo is a 37 year old male who presented to the emergency department with the following report: Chief Complaint: ER Hold Stated Complaint: SI Time Seen by Provider: 02/22/23 22:00 Source: patient Mode of arrival: ambulatory Limitations: no limitations History of Present Illness: 37-year-old male he states that he has been having suicidal thoughts he states he had increasing depression states he just no longer wants to live. He states he has a plan of slitting his wrist and felt like he may do it today. Denies any worsening improving factors. Associated symptoms: Reports depression and suicidal ideation. He was admitted to the neuropsychiatric unit for definitive treatment of those issues. He presents today reporting that he has been taking his medications as prescribed, but that he is having increased depression and increasing suicidal thoughts. He continues to endorse that his addiction has remained under control which his UDS and BAL were negative. He reports that he had been taking his medication effectively until about a month ago. He denied any major or substantive changes since he was last seen by this video game script writer 1-2 months ago and excerpt of his last psychiatric evaluation by this video game script writer is included below for context. Per his 12/25/2022 [facility] inpatient discharge summary: Discharge Diagnosis (1) Non compliance w medication regimen: Status: Inactive (2) Depression, major, recurrent, severe with psychosis: Status: Ruled-out (3) History of substance use disorder: Status: Chronic Permanent problem details: last use of alcohol reported as Jul 2021 last use of opiates and methamphetamines reported 2018 last use of marijuana Oct 2022 Reason for Visit Reason for Visit: mhe Brief History: History of Present Illness Wicho Lugo is a 37 year old male who presented to the emergency department the following report: Chief Complaint: Psychiatric Symptoms Stated Complaint: mhe Time Seen by Provider: 12/24/22 15:48 History of Present Illness: Mr. Lugo is a 37-year-old male with history of hypertension, substance abuse, PTSD presenting to the emergency department for suicidal ideation and depression. He reports worsening symptoms for a number of weeks and intentionally injured his wrist about 5 days ago without told people it was an accident. He reports visual hallucinations and no longer feels safe and believes he may be a danger to himself. He reports sleep disturbance and appetite disturbance as well as nightmares. He is no longer taking his medications for depression. Intensity symptoms is moderate to severe. Course is worsened. No other specific changes in health, exacerbating, or alleviating factors identified. Onset (ago): week(s) Duration: getting worse History of same: Yes Relieving factors: none Exacerbating factors: none Associated psychiatric symptoms: depression and visual hallucinations If self harm: admits thoughts of self harm and has acted on plan He was admitted to the neuropsychiatric unit for definitive treatment of those issues. He presents today much as he has in other hospitalizations where this video game script writer asked him to know him fairly well. Reporting depression and being off of his medication. He continues to endorse that his addiction has remained under control which his UDS and BAL were negative. He reports that he had been taking his medication effectively until about a month ago. He reports he simply ran out of prescriptions because he is working out and he was having difficulty making appointments that would jive with his work schedule. We had a discussion about the crisis center and how this could have been likely avoided with that new service. We also discussed getting him back on his Prozac which he reports is been very effective. We discussed length of stay and the possibility of this being a shorter stay but then we continue that conversation in the morning. He denied any major or substantive changes since he was last seen by this video game script writer about 13 months ago and excerpt of his last psychiatric evaluation by this video game script writer is included below for context. We also lengthy discussion about him maintaining his appointments at [facility] so that he can avoid inpatient stays. Per his 11/07/2021 [facility] inpatient psychiatric evaluation: History of Present Illness Wicho Lugo is a 36 year old male who presented to the emergency department with the following report: Chief Complaint: Psychiatric Symptoms Stated Complaint: SI Time Seen by Provider: 11/06/21 19:39 Source: patient and EMS Mode of arrival: EMS Limitations: no limitations History of Present Illness: HPI Narrative: 36-year-old male who is here from [facility] with suicidal ideation. He states that he has been having increasing depression been having thoughts of suicide all day he appears very anxious and fidgety here he states he has a plan to kill himself by jumping out in traffic. He does have a history of psychiatric issues along with alcoholism denies any alcohol intake today or recently he denies any worsening improving factors. Associated symptoms: Reports depression and suicidal ideation. He was admitted to the neuropsychiatric unit for definitive treatment of those issues. He presents today reporting that he had multiple inpatient hospitaliz ations the 6-7 here. His outpatient services at [facility]. He is currently not taking medication he reports having stopped a month or more ago. He could not clarify how that occurred given that he is at [employer] and was understanding that he assisted with medication. He reports that he does not smoke cigarettes, drink alcohol smoke marijuana use any other illicit drugs he denies rehabs or DUIs. He reports the nidus of this situation is that he and his girlfriend broke up about 7 days ago. He reports that that really made him sad he reports he started having thoughts to jump out of the vehicle or run on the ministry in the middle of traffic. Reports that he is having depression, anxiety and mood swings. We agreed that we would work with his outpatient providers to get a handle on what happened with the medication but we discussed the risk benefits and alternatives of starting Risperdal and Lamictal for mood stabilization and he understood agreed proceed as is documented in this note. He denies having any actual suicide attempts but does report suicidal thoughts. An excerpt of his last note from May is acute on chronic. It appears that the only changes he has is possibly stable housing through [employer]. Per his 06/20/2021 [facility] inpatient psychiatric evaluation: History of Present Illness Wicho Lugo is a 35 year old male who presented to the emergency department wi th the following report: Chief Complaint: Psychiatric Symptoms Stated Complaint: si Time Seen by Provider: 06/19/21 21:51 History of Present Illness: HPI Narrative: 35-year-old male patient comes in tonight with suicidal thoughts and ideation. Patient reports that he has been holding a knife considering on cutting his wrists or his throat for about 3 hours tonight. Patient then become more upset and called EMS for assistance. Patient has been on fluoxetine and Zyprexa for his depression but he stopped taking it 1 week ago. Patient admits to cannabis use but the last time he used was 2 weeks ago. Patient does routinely smoke tobacco. Patient denies any alcohol or other illicit drug use. Patient has had 2 previous admissions to the psychiatric unit once in November and once in January. Patient states that in 2011 he lost his baby daughter who was stillborn at 37 weeks and his brother who was 19. [facility]. Patient is not homeless he works at the [employer]. Patient reports that she is for the last 2 weeks he has had worsening depression to where he stopped taking his medication and now has had increasing thoughts of suicide. Patient is cooperative. Patient does seek voluntary admission to the neuropsychiatric unit. MD complaint: suicidal ideation Onset (ago): day(s) Duration: intermittent and getting worse Relieving factors: none Exacerbating factors: none Associated symptoms: Reports depression and suicidal ideation Treatments prior to arrival: none If self harm: admits thoughts of self harm and has plan Details of plan: He wants to use a knife to cut his wrists and throat. He was admitted to the neuropsychiatric unit for definitive treatment of those issues. He presents today reporting more or less that he had a bad day in the retrospect for which she would have worked through it versus coming to the hospital. He has been going to [facility] and reports he been doing really well. He has a job. He reports that over the past week or so he has been doing this./As well and that he started making stupid thoughts. Yesterday. His desire is to discharge but we discussed the risk-benefit and alternatives of him staying overnight is making sure that that is the right move possibly increasing his Prozac and he understood and agreed proceed as is documented in this note. He denies substantive changes since he was last seen by this video game script writer back in January 2021 and he was seen for evaluation at [facility] in February of the below for context. Per his 03/27/2021 [facility] psychiatric evaluation: [facility] History and Physical Time In: 09:30 Time Out: 10:30 Chief Complaint: Trying to better self and get treatment for depression and anxiety History of Present Illness: Wicho presents to behavioral health care for psychi atric evaluation. States he is here to try to get himself better and to treat his depression and suicidal thoughts. He was released from skilled nursing October 2020 after completing time for charge of statutory rape. He states since that time he has been homeless. He describes his mood as depressed, states he has no energy, states he cries easily. States he feels alone. Feels people are out to get him. Describes seeing black figures/shadows outside his car when he was sleeping in his car. He denies suicidal thoughts today. Most recent suicidal thoughts was about 2 weeks ago. No homicidal thoughts. Denies auditory and visual hallucinations today. Describes his mind racing. Has had difficulty sleeping. States he has difficulty falling asleep and he wakes up often. Reports nightmares of seeing his brother and his child. He was prescribed medication when he was hospitalized in October. This medication includes Seroquel 200 mg at bedtime, hydroxyzine 50 mg at bedtime, doxepin 10 mg at bedtime, trazodone 200 mg at bedtime, Prozac 20 mg daily, and prazosin 2 mg at bedtime. He states he has not taken this medication on a regular basis. He describes taking the medication about once a week. He verbalizes that no medicine has ever seem to work for him but also verbalizes that he has not taken it consistently. He currently does not have income or insurance coverage. He states he has medication that were given to him when he was at the stress unit. He is agreeable to restarting his medication today and taking on a consistent basis. He is agreeable for individual psychotherapy. Wicho denies any history of alexandro. Wicho does report hopeful thoughts/positive thoughts with treatment. He states staff at the psychiatric unit and behavioral health care has been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
[2024-05-03 14:08] VITALS: BP 104/72; PULSE 87; RESP 18; TEMP 36.4; O2SAT 94
== END 2024-05-03 14:44 | disposition home or self-care (01) | DRG 885 ==
LOC: ER 19:59 → NP 20:07
PROVIDERS: Admitting Provider Psychiatry & Neurology Psychiatry; Emergency Provider Emergency Medicine; PCP Family Medicine; Visit Provider Psychiatry & Neurology Psychiatry
DX: F25.1 Schizoaffective disorder, depressive type (principal); R45.851 Suicidal ideations; Z59.01 Sheltered homelessness; F12.20 Cannabis dependence, uncomplicated; I10 Essential (primary) hypertension; F90.9 Attention-deficit hyperactivity disorder, unspecified type; F70 Mild intellectual disabilities; F43.12 Post-traumatic stress disorder, chronic; Z86.16 Personal history of COVID-19; F17.290 Nicotine dependence, other tobacco product, uncomplicated; F15.10 Other stimulant abuse, uncomplicated; Z91.51 Personal history of suicidal behavior; F60.2 Antisocial personality disorder
CPT/HCPCS: 36415; 80053; 80306; 80307; 85025; 96372; 97150; 97165; 99285

== ENCOUNTER 2024-09-09 19:56 | Emergency (ER) | payer OTHER, BC, MEDICAID, SELFPAY ==
[2023-12-06 11:13] VITALS: BP 157/109; BMI 43.6
[2024-09-09 20:23] VITALS: BP 172/134; PULSE 101; RESP 17; TEMP 36.4; O2SAT 96; BMI 46.5
--- NOTE | 2024-09-09 21:10 | XRR_ITS ---
PROCEDURE INFORMATION: Exam: XR Right Hip Exam date and time: 09/10/2024 12:56 AM Age: 38 years old Clinical indication: Right hip; Patient HX: C/O RT hip pain. No injury. TECHNIQUE: Imaging protocol: Radiologic exam of the right hip. Views: 1 view hip with pelvis when performed. COMPARISON: No relevant prior studies available. FINDINGS: Bones/joints: Unremarkable. No acute fracture. Soft tissues: Unremarkable. XR/XR hip RT 2-3V wo/w pel* [id number] IMPRESSION: No acute findings.
--- NOTE | 2024-09-10 02:15 | W.ED.EXTPRO ---
HPI - Extremity Problem General: Chief complaint: Extremity Injury, Lower Stated complaint: Rt Hip Pain Time Seen by Provider: 09/10/24 02:08 History of Present Illness: 38-year-old male presenting with posterior left hip pain radiating into the posterior thigh. It has worsened over the course of a week or so. No numbness or tingling. No pain past the knee. No loss of bowel or bladder function. Related Data Home Medications Medication Instructions Recorded Confirmed cyproheptadine 4 mg tablet 4 mg PO BEDTIME 04/26/24 05/04/24 gabapentin 300 mg capsule 300 mg PO BEDTIME 04/26/24 05/04/24 Previous Rx's Medication Instructions Recorded clonidine HCl 0.1 mg tablet 0.1 mg PO BID #60 tabs 02/08/24 hydrochlorothiazide 50 mg tablet 50 mg PO DAILY 30 days #30 tabs 02/08/24 lisinopril 40 mg tablet 40 mg PO DAILY #30 tabs 02/08/24 zolpidem 5 mg tablet (Ambien) 5 mg PO BEDTIME #30 tabs 02/08/24 amlodipine 10 mg tablet 10 mg PO DAILY #30 tabs 02/14/24 bacitracin 500 unit/gram topical 1 applic topical BID #14 grams 04/12/24 ointment paliperidone palmitate 117 mg/0.75 117 mg (0.75 mL) IM Q30D #0.75 mL 05/03/24 mL intramuscular syringe ([facility]) dexamethasone 6 mg tablet 6 mg PO DAILY #5 tabs 09/10/24 ketorolac 10 mg tablet 10 mg PO TID PRN pain #10 tabs 09/10/24 Allergies Allergy/AdvReac Type Severity Reaction Status Date / Time gluten Allergy Severe ADR-Diarrhe Verified 05/04/24 17:39 a Milk Containing Products Allergy Mild ADR-Diarrhe Verified 05/04/24 17:39 (Dairy) a Alpha-Gal Allergy ADR-Gastrointestinal Verified 09/09/24 20:28 (Opdpiaizr-Rhvig-8,3-Gala Upset amoxicillin Allergy ALGY-Hives Verified 05/04/24 17:39 olanzapine [From Zyprexa] Allergy ADR-Agitate Verified 05/04/24 17:39 d soy Allergy ADR-Diarrhe Verified 05/04/24 17:39 a RED MEAT Allergy Severe ADR-Diarrhe Uncoded 05/04/24 17:39 a opiates AdvReac Unknown Uncoded 09/09/24 20:28 PFSH ED PFS: Medical History (Updated 09/10/24 @ 02:17 by Hao Todd DO) Cannabis dependence, episodic use History of substance use disorder last use of opiates reported in 2018 History of methamphetamine use Allergy to alpha-gal Schizoaffective disorder, depressive type HTN (hypertension) Chronic post-traumatic stress disorder Clinical diagnosis of COVID-19 Surgical History S/P knee surgery No pertinent past surgical history Family History Other Diabetes Family history of premature coronary artery disease Psychiatric illness Social History Smoking and tobacco/nicotine status: current every day tobacco/nicotine user e-cigarettes E-Cigarette Details: with nicotine E-cig/vape details: 6% one 8,000 puff POD lasts maybe one week Quit status (tobacco/nicotine): not considering quitting Second hand smoke exposure: Yes Alcohol intake: former Former alcohol use details: or 2020 Substance/Drug Use: current Substance/Drug use frequency: few times a month Other substance/drug use details: only when available Adopted: No Caregiver/support person: No Lives independently: Yes Household members: other Details: homeless but stay with a friend Housing: House Marital status: Legally Number of children: 2 Number of grandchildren: 0 Highest education level completed: Some College, No Degree service: No Current occupational status: unemployed Current occupational exposures/hazards: No Pets and animals: Yes Pets & animals: dog(s) Leisure activites: other Leisure activities details: social media Sexually active: No Do you think of yourself as: Straight/Heterosexual Current gender identity: Male Stephany/Scientology: [employer] Special stephany needs: No Agree to transfusion: Yes Physical Exam Const: COMMON NORMALS: no acute distress GENERAL APPEARANCE: cooperative; not ill appearing and not frail appearing HENMT: COMMON NORMALS: normocephalic, atraumatic and Normal external nose present HEAD & SCALP: normocephalic and atraumatic FACE & SINUS: normal facial exam and face symmetric NOSE: Normal external nose present Eye: COMMON NORMALS: Equal, round and reactive pupils present and EOMs intact bilaterally PUPIL: Yes Equal, round and reactive pupils present Neck/C-Spine: GENERAL: Yes trachea midline Chest: CHEST: Yes Symmetrical chest wall rise Resp: COMMON NORMALS: normal respiratory effort and No use of accessory muscles Cardio: COMMON NORMALS: regular rate and regular rhythm RATE: regular rate RHYTHM: regular rhythm GI: COMMON NORMALS: Normal to inspection, nondistended, normoactive bowel sounds present Back/Pelvis: OTHER: No lumbar spine tenderness. Tenderness over the right SIJ. Piriformis tenderness is present period straight leg raise test causes some pain, but not radicular pain. Sensation is intact distally. Extremity: COMMON NORMALS: no pedal edema Neuro: ANALI COMA SCALE: document GCS findings [place] coma scale eye opening: Spontaneous [place] coma scale verbal response: Orientated Anali coma scale motor response: Obey commands Anali coma scale total score: 15 SENSORY EXAM: Yes extremities (intact) Psych: COMMON NORMALS: speech normal SPEECH: Yes normal speech Skin: COMMON NORMALS: no rashes or lesions noted GENERAL SKIN EXAM: no rashes or lesions noted Course Vital Signs: Vital signs: Vital Signs Temperature 97.5 F L 09/09/24 20:23 Pulse Rate 87 09/10/24 02:51 Respiratory Rate 17 09/09/24 20:23 Blood Pressure 187/75 09/10/24 02:51 Pulse Oximetry 97 09/10/24 02:51 Oxygen Delivery Me thod Room Air 09/09/24 20:23 MDM - Extremity (Nontraumatic) Medical Decision Making X-ray of the right hip is negative. No SI joint ankylosis. He is tender over the SI joint and piriformis. No red flag symptoms such as saddle anesthesia, loss of bowel or bladder function, etcetera. No lumbar spine tenderness. He requests no opioids. And he'll be given steroids, and Toradol. Lab Data Radiology Impressions Hip/Pelvis X-Ray 09/09/24 21:10 IMPRESSION: No acute findings. All radiology interpretation(s) finalized by discharge Discharge Plan Discharge Patient Disposition: Home Clinical Impression: Sciatica Condition: Stable Prescriptions: New dexamethasone 6 mg tablet 6 mg PO DAILY Qty: 5 0RF ketorolac 10 mg tablet 10 mg PO TID PRN (Reason: pain) Qty: 10 0RF No Action hydrochlorothiazide 50 mg tablet 50 mg PO DAILY 30 Days Qty: 30 5RF lisinopril 40 mg tablet 40 mg PO DAILY Qty: 30 5RF zolpidem [Ambien] 5 mg tablet 5 mg PO BEDTIME Qty: 30 5RF clonidine HCl 0.1 mg tablet 0.1 mg PO BID Qty: 60 5RF amlodipine 10 mg tablet 10 mg PO DAILY Qty: 30 5RF bacitracin 500 unit/gram ointment 1 applic topical BID Qty: 14 0RF cyproheptadine 4 mg tablet 4 mg PO BEDTIME gabapentin 300 mg capsule 300 mg PO BEDTIME Rx Instructions: Take one capsule PO at bedtime. Invega Sustenna 117 mg/0.75 mL syringe 117 mg IM Q30D Qty: 0.75 1RF Rx Instructions: Next IM due on 05/15/24 Discharge Orders: Discharge ED (Routine); Ordered 09/10/24 Ordered By: Hao Todd Patient Instructions: Sciatica (ED), Opioid Safety, Pain Management Activity Restrictions/Additional Instructions: Medication as directed. You may take ketorolac as needed for pain. Take dexamethasone scheduled. Call your doctor Wednesday for follow-up appointment. Stand Alone Forms: Work/School Release Coding Level of Care Code ED Nutrition Director for Aby Dixon
[2024-09-10] MEDS: ketorolac 30 mg/mL INJ 60 MG IM (02:32)
[2024-09-10] MEDS: dexamethasone 10 mg/mL INJ PO (02:32)
[2024-09-10 02:51] VITALS: BP 187/75; PULSE 87; O2SAT 97
== END 2024-09-10 02:52 | disposition home or self-care (01) ==
PROVIDERS: Emergency Provider Emergency Medicine
DX: M54.32 Sciatica, left side (principal); F17.290 Nicotine dependence, other tobacco product, uncomplicated; I10 Essential (primary) hypertension
CPT/HCPCS: 73502; 96372; 99284; J1100; J1885

== ENCOUNTER → 2024-09-26 11:11 | Outpatient (BNVA) | payer BC, MEDICAID, SELFPAY ==
[2023-12-06 11:13] VITALS: BP 157/109; BMI 43.6
== END ==
PROVIDERS: Visit Provider Registered Nurse Neonatal Intensive Care
DX: R39.9 Unspecified symptoms and signs involving the genitourinary system (principal)
CPT/HCPCS: 81000

== ENCOUNTER 2024-09-28 22:59 | Emergency (ER) | payer BC, MEDICAID, SELFPAY ==
[2023-12-06 11:13] VITALS: BP 157/109; BMI 43.6
[2024-09-28 23:13] VITALS: BP 202/136; PULSE 99; RESP 18; TEMP 36.6; O2SAT 97; BMI 46.2
--- NOTE | 2024-09-28 23:28 | ED_ITS ---
HPI - Back Pain/Injury General: Chief Complaint: Back Pain/Injury Stated Complaint: Lower Back Feels like Fire Time Seen by Provider: 09/28/24 23:18 Source: patient Mode of arrival: ambulatory Limitations: no limitations History of Present Illness: Patient is a 38-year-old male who is known here to the emergency department he is presenting with low back pain radiating about both legs chronically. Has been seen here before in the past, diagnosed with sciatica. He presents here stating that the pain is more midline, he is concerned of a slipped disc. No injury to report, he does not have a significantly strenuous job. No urinary incontinence or bowel incontinence. No fevers, nausea, vomiting, or other symptoms to report. MD elicited complaint: back pain Pertinent past history: prior back pain Timing: intermittent Severity: moderate Similar Symptoms Previously: Yes Location: lumbar spine Radiation: left upper leg and right upper leg Exacerbating factors: movement Associated symptoms: Deny abdominal pain, chills, fever(s), nausea or vomiting Related Data Previous Rx's Medication Instructions Recorded ondansetron HCl 4 mg/5 mL oral 8 mg (10 mL) PO Q8H PRN nausea and 09/26/24 solution vomiting 3 days #50 mL methocarbamol 750 mg tablet 750 mg PO Q8H 5 days #15 tabs 09/29/24 Allergies Allergy/AdvReac Type Severity Reaction Status Date / Time gluten Allergy Severe ADR-Diarrhe Verified 09/27/24 10:24 a Milk Containing Products Allergy Mild ADR-Diarrhe Verified 09/27/24 10:24 (Dairy) a Alpha-Gal Allergy ADR-Gastrointestinal Verified 09/27/24 10:24 (Ixqmodgrn-Znulv-5,3-Gala Upset amoxicillin Allergy ALGY-Hives Verified 09/27/24 10:24 olanzapine [From Zyprexa] Allergy ADR-Agitate Verified 09/27/24 10:24 d soy Allergy ADR-Diarrhe Verified 09/27/24 10:24 a RED MEAT Allergy Severe ADR-Diarrhe Uncoded 09/26/24 10:58 a opiates AdvReac Unknown Uncoded 09/26/24 10:58 Review of Systems General: Reports: 10 or more systems reviewed and unremarkable except in HPI and below Const: Denies: fever(s) or chills Card: Denies: chest pain Resp: Denies: dyspnea or productive cough GI: Denies: abdominal pain, nausea, vomiting or diarrhea : Denies: flank pain Musc: Reports: back pain, extremity pain and limited range of motion; Denies: neck pain, extremity swelling, joint pain, joint swelling, joint redness, joint warmth or muscle weakness Skin/Breast: Denies: rash Neuro: Denies: headache(s), numbness in extremities or weakness in extremities PFSH ED PFSH: Medical History Cannabis dependence, episodic use History of substance use disorder last use of opiates reported in 2018 History of methamphetamine use Allergy to alpha-gal Schizoaffective disorder, depressive type HTN (hypertension) Chronic post-traumatic stress disorder Clinical diagnosis of COVID-19 Surgical History S/P knee surgery No pertinent past surgical history Family History Other Diabetes Family history of premature coronary artery disease Psychiatric illness Social History Smoking and tobacco/nicotine status: unknown if used tobacco/nicotine Quit status (tobacco/nicotine): not considering quitting Second hand smoke exposure: Yes Alcohol intake: former Former alcohol use details: or 2020 Substance/Drug Use: current Substance/Drug use frequency: few times a month Other substance/drug use details: only when available Adopted: No Caregiver/support person: No Lives independently: Yes Household members: other Details: homeless but stay with a friend Housing: House Marital status: Legally Number of children: 2 Number of grandchildren: 0 Highest education level completed: Some College, No Degree service: No Current occupational status: unemployed Current occupational exposures/hazards: No Pets and animals: Yes Pets & animals: dog(s) Leisure activites: other Leisure activities details: social media Sexually active: No Do you think of yourself as: Straight/Heterosexual Current gender identity: Male Stephany/Episcopalian: Sikhism Special stephany needs: No Agree to transfusion: Yes Physical Exam Const: COMMON NORMALS: no acute distress, patient oriented x3, no limitations, alert and well nourished NUTRITIONAL APPEARANCE: obese morbidly obese HENMT: COMMON NORMALS: normocephalic and atraumatic HEAD & SCALP: normocephalic and atraumatic Neck/C-Spine: COMMON NORMALS: full ROM, supple and no meningeal signs Resp: COMMON NORMALS: normal respiratory effort, No use of accessory muscles and clear to auscultation bilaterally AUSCULTATION: clear to auscultation bilaterally Cardio: COMMON NORMALS: regular rate and regular rhythm RATE: regular rate RHYTHM: regular rhythm Back/Pelvis: OTHER: Reproducible tenderness to palpation of the bilateral paralumbar muscles, this is to light palpation. Straight leg raise testing positive bilaterally. No bruising or signs of trauma. Extremity: COMMON NORMALS: normal to inspection, full ROM, capillary refill normal, no joint enlargement and no clubbing, cyanosis or edema Neuro: COMMON NORMALS: patient oriented x3, moves all extremities, no focal motor deficits and no sensory deficits noted SENSORIUM/ORIENTATION: Yes alert MENINGEAL SIGNS: Yes no meningeal signs Skin: COMMON NORMALS: no rashes or lesions noted GENERAL SKIN EXAM: no rashes or lesions noted Course Vital Signs: Vital signs: Vital Signs Temperature 98 F 09/28/24 23:13 Pulse Rate 83 09/29/24 00:00 Respiratory Rate 18 09/28/24 23:13 Blood Pressure 155/94 09/29/24 00:00 Pulse Oximetry 98 09/29/24 00:00 MDM - Back Pain/Injury Medical Decision Making Patient presenting here, no near to the emergency department he is complaining of low back pain with radiation down both legs. History of sciatica. He is very large, morbidly obese and I think that this body habitus is contributing to his worsening pain, however x-ray does show signs of some degenerative disc disease and he will be referred to Ortho/spine. He was giving medications here and does report relief of his pain, will send muscle relaxers to pharmacy. Reasons to return discussed otherwise he will follow-up with Ortho/spine. Labs Radiology Impressions Lumbar Spine X-Ray 09/29/24 00:25 IMPRESSION: 1. Ubpx-jq-oxvukqvw multilevel disc space narrowing and productive endplate changes throughout the spine. 2. L1 vertebral body minimal compression deformity suspected without retropulsion of bony fragments. All radiology interpretation(s) finalized by discharge Discharge Plan Discharge Patient Disposition: Home Clinical Impression: Lumbar radiculopathy Degenerative disc disease Qualifiers: Spinal region: thoracolumbar Qualified Code(s): M51.35 - Other intervertebral disc degeneration, thoracolumbar region Condition: Stable Prescriptions: New methocarbamol 750 mg tablet 750 mg PO Q8H 5 Days Qty: 15 0RF No Action ondansetron HCl 4 mg/5 mL solution 8 mg PO Q8H PRN (Reason: nausea and vomiting) 3 Days Qty: 50 0RF Discharge Orders: Discharge ED (Routine); Ordered 09/29/24 Ordered By: Sid Kessler Patient Instructions: Pain Management Activity Restrictions/Additional Instructions: Follow-up with orthopedic/spine as discussed. Please return with any new or worsening. Take muscle relaxers as prescribed. Gentle range of motion exercises. Ice/heat. Tylenol/ibuprofen. Coding Level of Care Code ED Senior Mobile Web Developer for Aby Dixon
[2024-09-29] VITALS: BP 155/94; PULSE 83; O2SAT 98
[2024-09-29] MEDS: ketorolac 60 mg/2 mL INJ IM (00:15)
[2024-09-29] MEDS: dexamethasone 10 mg/mL INJ IM (00:15)
[2024-09-29] MEDS: orphenadrine 30 mg/mL Inj 2 mL 60 MG IM (00:15)
--- NOTE | 2024-09-29 00:25 | XRR_ITS ---
PROCEDURE INFORMATION: Exam: XR Lumbosacral Spine Exam date and time: 09/29/2024 12:19 AM Age: 38 years old Clinical indication: Pain; Lumbago with sciatica; Bilateral; Additional info: Low back pain worsening from prior TECHNIQUE: Imaging protocol: Radiologic exam of the lumbosacral spine. Views: 2 or 3 views. COMPARISON: CR (PELVIS, ) 09/10/2024 12:56 AM FINDINGS: Bones/joints: Wiea-lr-yyjthsbr multilevel disc space narrowing and productive endplate changes throughout the spine. L1 vertebral body minimal compression deformity suspected without retropulsion of bony fragments. Soft tissues: Unremarkable. XR/XR lumbar spine 2-3V* [id number] IMPRESSION: 1. Eapg-zj-osouydel multilevel disc space narrowing and productive endplate changes throughout the spine. 2. L1 vertebral body minimal compression deformity suspected without retropulsion of bony fragments.
--- NOTE | 2024-09-29 07:43 | DCPLANNER ---
messaged ortho for er f/u
== END 2024-09-29 01:50 | disposition home or self-care (01) ==
PROVIDERS: Emergency Provider Physician Assistant
DX: M54.16 Radiculopathy, lumbar region (principal); M51.35 Other intervertebral disc degeneration, thoracolumbar region; I10 Essential (primary) hypertension
CPT/HCPCS: 72100; 96372; 99284; J1100; J1885; J2360

== ENCOUNTER → 2024-10-05 15:42 | Outpatient (BNVA) | payer BC, MEDICAID, SELFPAY ==
[2023-12-06 11:13] VITALS: BP 157/109; BMI 43.6
== END ==
PROVIDERS: Visit Provider Orthopaedic Surgery
DX: M51.35 Other intervertebral disc degeneration, thoracolumbar region (principal); M54.16 Radiculopathy, lumbar region
CPT/HCPCS: 72110

== ENCOUNTER → 2024-10-18 12:53 | Outpatient (BNVA) | payer OTHER, SELFPAY ==
[2023-12-06 11:13] VITALS: BP 157/109; BMI 43.6
== END ==
DX: R51.9 Headache, unspecified (principal)
CPT/HCPCS: 87400; 87426

== ENCOUNTER → 2024-11-08 16:07 | Outpatient (BNVA) | payer OTHER, SELFPAY ==
[2023-12-06 11:13] VITALS: BP 157/109; BMI 43.6
== END ==
PROVIDERS: Visit Provider Nurse Practitioner Psychiatric/Mental Health
DX: F41.1 Generalized anxiety disorder (principal); F25.1 Schizoaffective disorder, depressive type; Z79.899 Other long term (current) drug therapy
CPT/HCPCS: 80061; 83036

== ENCOUNTER → 2024-11-16 12:51 | Outpatient (BNVA) | payer OTHER, SELFPAY ==
[2024-11-15 10:42] VITALS: BP 195/124; BMI 47.5
== END ==
PROVIDERS: Visit Provider Orthopaedic Surgery
DX: M54.50 Low back pain, unspecified (principal)
CPT/HCPCS: 72110

== ENCOUNTER 2024-11-18 15:32 | Emergency (ER) | payer BC, MEDICAID, SELFPAY ==
[2024-11-15 10:42] VITALS: BP 195/124; BMI 47.5
[2024-11-18 15:37] VITALS: BP 199/125; PULSE 98; RESP 18; TEMP 36.9; O2SAT 98; BMI 46.8
--- NOTE | 2024-11-18 15:44 | XRR_ITS ---
PROCEDURE INFORMATION: Exam: XR Chest Exam date and time: 11/18/2024 4:21 PM Age: 39 years old Clinical indication: Pain; Chest pressure; Additional info: Chest pain TECHNIQUE: Imaging protocol: Radiologic exam of the chest. Views: 1 view. COMPARISON: CR (CHEST, ) 04/12/2024 6:25 PM FINDINGS: Lungs: Unremarkable. No consolidation. Pleural spaces: Unremarkable. No pleural effusion. No pneumothorax. Heart/Mediastinum: Unremarkable. No cardiomegaly. Bones/joints: Unremarkable. XR/XR chest 1V portable [id number] IMPRESSION: No acute cardiopulmonary process.
--- NOTE | 2024-11-18 15:44 | ECG_ITS ---
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 Measurements Intervals [place] Rate: 98 P: 42 ID: [id number] QRS: 84 QRSD: 116 T: 5 QT: 362 QTc: 462 Interpretive Statements SINUS RHYTHM INCOMPLETE RIGHT BUNDLE BRANCH BLOCK [90+ ms QRS DURATION, TERMINAL R IN V1/V2, 40+ ms S IN I/aVL/V4/V5/V6] INTERPRETATION BASED ON A DEFAULT AGE OF 39 YEARS Compared to ECG 08/04/2023 22:51:38 Incomplete right bundle-branch block now present Intraventricular conduction delay no longer present Electronically Signed On 11-20-2024 20:19:37 JAWBONE PULLER by Bharat Payton M.D. [id number]
[2024-11-18 16:28] LABS: Basophils # 0.1 10^3/uL (0.0-0.1); Basophils % 0.5 %; Eosinophils # 0.4 10^3/uL (0.0-0.8); Eosinophils % 3.5 %; Lymphocytes # 3.7 10^3/uL (0.8-4.8); Lymphocytes % 37.6 %; Mean Corpuscular HGB Conc 33.8 g/dL (30-55); Mean Corpuscular Hemoglobin 28.8 pg (27-33); Mean Platelet Volume 8.8 fL (7.4-10.4); Monocytes # 0.5 10^3/uL (0.2-0.9); Monocytes % 4.9 %; Neutrophils # 5.28 10^3/uL (1.8-7.7); Neutrophils % 53.2 %; Nucleated Red Blood Cells % 0 %; Platelet Count 225 10^3/cmm (157-399); Red Blood Count 4.59 10^6/uL (3.85-5.65); Red Cell Distribution Width 12.8 % (12.1-15.1); White Blood Count 9.93 10^3/uL (3.29-11.43)
[2024-11-18 16:49] LABS: Alanine Aminotransferase 72 U/L (0-41); Albumin Level 4.5 g/dL (3.5-5.2); Alkaline Phosphatase 69 U/L (40-130); Anion Gap 15.4 (5-19); Aspartate Amino Transferase 47 U/L (0-40); Blood Urea Nitrogen 11 mg/dL (6-20); Calcium 9.2 mg/dL (8.5-10.5); Carbon Dioxide 23 mmol/L (22-29); Chloride 104 mmol/L (98-107); Creatinine Clr Calc Pharmacy 184.6389; Glomerular Filtration Rate 93.5 mL/min (90-130); Glucose 99 mg/dL (65-115); Osmolality Calculated 287 mOsm/kg (285-295); Potassium 3.4 mmol/L (3.5-5.1); Sodium 139 mmol/L (136-145); Total Bilirubin 0.3 mg/dL (0.15-1.2); Total Protein 7.5 g/dL (6.6-8.7)
[2024-11-18 16:51] LABS: Troponin(5th) Baseline 10 ng/L (0-15)
[2024-11-18 17:41] VITALS: BP 173/117; PULSE 96; O2SAT 96
--- NOTE | 2024-11-18 17:44 | ECG_ITS ---
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 Measurements Intervals [place] Rate: 90 P: 43 MD: 151 QRS: 57 QRSD: 114 T: 45 QT: 370 QTc: 453 Interpretive Statements SINUS RHYTHM MODERATE INTRAVENTRICULAR CONDUCTION DELAY [110+ ms QRS DURATION] Compared to ECG 11/18/2024 15:33:41 Intraventricular conduction delay now present Incomplete right bundle-branch block no longer present Electronically Signed On 11-20-2024 20:32:53 BREAD WRAPPER OPERATOR by Bharat Payton M.D. [id number]
[2024-11-18 18:00] VITALS: BP 169/106; PULSE 89; RESP 25; O2SAT 99
[2024-11-18 18:50] VITALS: BP 168/131; PULSE 92; O2SAT 98
[2024-11-18] MEDS: amlodipine 10 mg Tablet PO (19:21)
[2024-11-18] MEDS: ondansetron 2 mg/ML SDV 2 mL 4 MG IVP (19:21)
[2024-11-18] MEDS: lidocaine 2% viscous 15 ML, aluminum-mag hydrox-simethicon 30 ML, sucralfate oral liq 1 GM PO (19:21)
[2024-11-18] MEDS: ketorolac 30 mg/mL INJ IVP (19:21)
--- NOTE | 2024-11-18 19:41 | W.ED.CHESTPA ---
HPI - Chest Pain General: Chief Complaint: Chest Pain Stated Complaint: CHest pain Time Seen by Provider: 11/18/24 16:35 History of Present Illness: 39-year-old male patient complaining of chest discomfort. He states that started around 8 AM this morning while at work. He felt fine around 6 when he got up. He has been on and off all day. Pain with deep breathing. He has had tingly sensation in his left upper and lower extremity as well, which is what brought him to the emergency room. Related Data Previous Rx's Medication Instructions Recorded ondansetron HCl 4 mg/5 mL oral 8 mg (10 mL) PO Q8H PRN nausea and 09/26/24 solution vomiting 3 days #50 mL amlodipine 10 mg tablet 10 mg PO DAILY #30 tabs 11/18/24 Allergies Allergy/AdvReac Type Severity Reaction Status Date / Time gluten Allergy Severe ADR-Diarrhe Verified 10/18/24 12:50 a Milk Containing Products Allergy Mild ADR-Diarrhe Verified 10/18/24 12:50 (Dairy) a Alpha-Gal Allergy ADR-Gastrointestinal Verified 10/18/24 12:50 (Ozsajabfp-Twhwi-6,3-Gala Upset amoxicillin Allergy ALGY-Hives Verified 10/18/24 12:50 olanzapine [From Zyprexa] Allergy ADR-Agitate Verified 10/18/24 12:50 d soy Allergy ADR-Diarrhe Verified 10/18/24 12:50 a RED MEAT Allergy Severe ADR-Diarrhe Uncoded 10/18/24 12:50 a opiates AdvReac Unknown Uncoded 10/18/24 12:50 [facility] ED PFSH: Medical History Cannabis dependence, episodic use History of substance use disorder last use of opiates reported in 2018 History of methamphetamine use Allergy to alpha-gal Schizoaffective disorder, depressive type HTN (hypertension) Chronic post-traumatic stress disorder Clinical diagnosis of COVID-19 Surgical History S/P knee surgery No pertinent past surgical history Family History Other Diabetes Family history of premature coronary artery disease Psychiatric illness Social History (Reviewed 11/18/24 @ 19:44 by CHARAN Mendoza Smoking and tobacco/nicotine status: unknown if used tobacco/nicotine Quit status (tobacco/nicotine): not considering quitting Second hand smoke exposure: Yes Alcohol intake: former Former alcohol use details: or 2020 Substance/Drug Use: current Substance/Drug use frequency: few times a month Other substance/drug use details: only when available Adopted: No Caregiver/support person: No Lives independently: Yes Household members: other Details: homeless but stay with a friend Housing: House Marital status: Legally Number of children: 2 Number of grandchildren: 0 Highest education level completed: Some College, No Degree service: No Current occupational status: unemployed Current occupational exposures/hazards: No Pets and animals: Yes Pets & animals: dog(s) Leisure activites: other Leisure activities details: social media Sexually active: No Do you think of yourself as: Straight/Heterosexual Current gender identity: Male Stephany/Advent: Denominational Special stephany needs: No Agree to transfusion: Yes Physical Exam Const: COMMON NORMALS: no acute distress GENERAL APPEARANCE: cooperative; not ill appearing and not frail appearing HENMT: COMMON NORMALS: normocephalic, atraumatic and Normal external nose present HEAD & SCALP: normocephalic and atraumatic FACE & SINUS: normal facial exam and face symmetric NOSE: Normal external nose present Eye: COMMON NORMALS: Equal, round and reactive pupils present and EOMs intact bilaterally PUPIL: Yes Equal, round and reactive pupils present Neck/C-Spine: GENERAL: Yes trachea midline Chest: CHEST: Yes Symmetrical chest wall rise Resp: COMMON NORMALS: normal respiratory effort, No retractions, No use of accessory muscles and clear to auscultation bilaterally AUSCULTATION: clear to auscultation bilaterally Cardio: COMMON NORMALS: regular rate and regular rhythm RATE: regular rate RHYTHM: regular rhythm GI: COMMON NORMALS: Normal to inspection, nondistended, normoactive bowel sounds present Extremity: COMMON NORMALS: no pedal edema Neuro: ANALI COMA SCALE: document GCS findings Anali coma scale eye opening: Spontaneous Anali coma scale verbal response: Orientated Arcade coma scale motor response: Obey commands Anali coma scale total score: 15 SENSORY EXAM: Yes extremities (intact) Psych: COMMON NORMALS: speech normal SPEECH: Yes normal speech Skin: COMMON NORMALS: no rashes or lesions noted GENERAL SKIN EXAM: no rashes or lesions noted Course Vital Signs: Vital signs: Vital Signs Temperature 98.5 F 11/18/24 15:37 Pulse Rate 88 11/18/24 20:17 Respiratory Rate 18 11/18/24 20:17 Blood Pressure 177/98 11/18/24 20:17 Pulse Oximetry 99 11/18/24 20:17 Oxygen Delivery Me thod Room Air 11/18/24 15:37 MDM - Chest Pain Medical Decision Making 39-year-old male with chest discomfort. Chest x-ray is negative. He is hypertensive, and is given amlodipine for this. His CBC is normal. His CMP is unremarkable essentially. Bilirubin is 0.3. His chest pain is reproducible. His troponin is normal. Certainly with chest discomfort since 8 AM, he should have elevation if this is cardiac in nature he is given Toradol and a GI cocktail. He will be released with antihypertensives. He refused narcotic pain medication, as he is a recovering addict. In the differential would be GERD, esophageal spasm, chest wall pain, hypertension. Much less likely pneumonia, PE, pneumothorax, acute coronary syndrome. Lab Data 11/18/24 16:14 11/18/24 16:14 Radiology Impressions Chest X-Ray 11/18/24 15:44 IMPRESSION: No acute cardiopulmonary process. Laboratory Results WBC 9.93 10^3/uL (3.29-11.43) 11/18/24 16:14 RBC 4.59 10^6/uL (3.85-5.65) 11/18/24 16:14 Hgb 13.20 g/dL (11.27-16.99) 11/18/24 16:14 Hct 39.0 % (37-53) 11/18/24 16:14 MCV 85.0 fl (82-101) 11/18/24 16:14 MCH 28.8 pg (27-33) 11/18/24 16:14 MCHC 33.8 g/dL (30-55) 11/18/24 16:14 RDW 12.8 % (12.1-15.1) 11/18/24 16:14 Plt Count 225 10^3/cmm (157-399) 11/18/24 16:14 MPV 8.8 fL (7.4-10.4) 11/18/24 16:14 Neut % (Auto) 53.2 % 11/18/24 16:14 Lymph % (Auto) 37.6 % 11/18/24 16:14 [place] % (Auto) 4.9 % 11/18/24 16:14 Eos % (Auto) 3.5 % 11/18/24 16:14 Baso % (Auto) 0.5 % 11/18/24 16:14 Neut # (Auto) 5.28 10^3/uL (1.8-7.7) 11/18/24 16:14 Lymph # (Auto) 3.7 10^3/uL (0.8-4.8) 11/18/24 16:14 [place] # (Auto) 0.5 10^3/uL (0.2-0.9) 11/18/24 16:14 Eos # (Auto) 0.4 10^3/uL (0.0-0.8) 11/18/24 16:14 Baso # (Auto) 0.1 10^3/uL (0.0-0.1) 11/18/24 16:14 Nucleated RBC % (auto) 0 % 11/18/24 16:14 Nucleated RBCs # 0.0 /100WBC 11/18/24 16:14 Sodium 139 mmol/L (136-145) 11/18/24 16:14 Potassium 3.4 mmol/L (3.5-5.1) L 11/18/24 16:14 Chloride 104 mmol/L (98-107) 11/18/24 16:14 Carbon Dioxide 23 mmol/L (22-29) 11/18/24 16:14 Anion Gap 15.4 (5-19) 11/18/24 16:14 BUN 11 mg/dL (6-20) 11/18/24 16:14 Creatinine 0.9 mg/dL (0.7-1.2) 11/18/24 16:14 GFR Calculation 93.5 mL/min (90-130) 11/18/24 16:14 Glucose 99 mg/dL (65-115) 11/18/24 16:14 Calculated Osmolality 287 mOsm/kg (285-295) 11/18/24 16:14 Calcium 9.2 mg/dL (8.5-10.5) 11/18/24 16:14 Total Bilirubin 0.3 mg/dL (0.15-1.2) 11/18/24 16:14 AST 47 U/L (0-40) H 11/18/24 16:14 ALT 72 U/L (0-41) H 11/18/24 16:14 Alkaline Phosphatase 69 U/L (40-130) 11/18/24 16:14 Troponin T Baseline 10 ng/L (0-15) 11/18/24 16:14 Total Protein 7.5 g/dL (6.6-8.7) 11/18/24 16:14 Albumin 4.5 g/dL (3.5-5.2) 11/18/24 16:14 Globulin 3.0 g/dL (1.3-4.6) 11/18/24 16:14 All radiology interpretation(s) finalized by discharge Discharge Plan Discharge Patient Disposition: Home Clinical Impression: Chest pain, Hypertension Condition: Stable Prescriptions: New amlodipine 10 mg tablet 10 mg PO DAILY Qty: 30 0RF No Action ondansetron HCl 4 mg/5 mL solution 8 mg PO Q8H PRN (Reason: nausea and vomiting) 3 Days Qty: 50 0RF Discharge Orders: Discharge ED (Routine); Ordered 11/18/24 Ordered By: Hao Todd Patient Instructions: Chest Pain (ED), Hypertension (ED), Opioid Safety, Pain Management Activity Restrictions/Additional Instructions: Take your blood pressure twice daily if able. If your blood pressure is remaining greater than 150/90, take medication as prescribed. A case management referrals been placed for you a follow-up appointment with her primary care doctor. You should get a call next week from them. Return for worsening pain despite treatment, fever, shortness of breath, other concerning symptoms Coding Level of Care Code ED Mannequin Refinisher for Aby Dixon
[2024-11-18 20:17] VITALS: BP 177/98; PULSE 88; RESP 18; O2SAT 99
== END 2024-11-18 20:19 | disposition home or self-care (01) ==
PROVIDERS: Emergency Medicine; Emergency Provider Emergency Medicine
DX: R07.9 Chest pain, unspecified (principal); I10 Essential (primary) hypertension
CPT/HCPCS: 71045; 80053; 84484; 85025; 93005; 96374; 96375; 99285; J1885; J2405

== ENCOUNTER → 2025-01-11 13:24 | Outpatient (BNVA) | payer BC, MEDICAID, SELFPAY ==
[2024-11-15 10:42] VITALS: BP 195/124; BMI 47.5
== END ==
PROVIDERS: PCP Family Medicine; Visit Provider Orthopaedic Surgery
DX: M54.41 Lumbago with sciatica, right side (principal); M54.42 Lumbago with sciatica, left side; G89.29 Other chronic pain
CPT/HCPCS: 72110

== ENCOUNTER 2025-01-30 13:25 | Outpatient (CLI) | payer BC, MEDICAID, SELFPAY ==
[2024-11-15 10:42] VITALS: BP 195/124; BMI 47.5
--- NOTE | 2025-01-30 13:45 | MR_ITS ---
WS: [id number] MRI LUMBAR SPINE NONCONTRAST TECHNIQUE: Sagittal T1, T2 and STIR imaging. Axial T1 and T2 imaging. CLINICAL INFORMATION: lumbar pain COMPARISON: None. FINDINGS: Mild lumbar curve. No acute compression. Mild disc bulging worse at L5-S1. L1-L2: Normal. L2-L3: Mild facet arthropathy. Spinal canal and foramen are patent. L3-L4: No significant disc bulging. Mild facet arthropathy. Mild bilateral foraminal narrowing with small RIGHT foraminal protrusion. L4-L5: Mild annular bulging. Narrowing of the subarticular recess. Moderate facet arthropathy. Mild LEFT foraminal narrowing. RIGHT foramen is patent. L5-S1: Mild annular bulging. Tiny central protrusion. Spinal canal and foramen are patent. Mild to moderate facet arthropathy. Visualized pelvic bony structures: Normal. Paravertebral soft tissues: Normal. MR/MR lumbar spine wo con* [id number] IMPRESSION: 1. RIGHT foraminal protrusion L3-4 with mild RIGHT foraminal narrowing. 2. Shallow central protrusion L5-S1 with slight encroachment on traversing S1 nerve roots. 3. Narrowing of the subarticular recess L4-5 with mild LEFT foraminal narrowin g. Slight contact of the exiting LEFT L4 nerve root. 4. Mild to moderate facet arthropathy L3-L5.
== END 2025-01-30 13:26 | disposition home or self-care (01) ==
PROVIDERS: PCP Family Medicine; Visit Provider Orthopaedic Surgery
DX: M54.41 Lumbago with sciatica, right side (principal); M54.42 Lumbago with sciatica, left side; G89.29 Other chronic pain; M79.604 Pain in right leg; M79.605 Pain in left leg; M51.26 Other intervertebral disc displacement, lumbar region; M48.061 Spinal stenosis, lumbar region without neurogenic claudication; R93.7 Abnormal findings on diagnostic imaging of other parts of musculoskeletal system; M47.896 Other spondylosis, lumbar region; M43.8X6 Other specified deforming dorsopathies, lumbar region; M51.379 Other intervertebral disc degeneration, lumbosacral region without mention of lumbar back pain or lower extremity pain; M51.369 Other intervertebral disc degeneration, lumbar region without mention of lumbar back pain or lower extremity pain; M47.897 Other spondylosis, lumbosacral region
CPT/HCPCS: 72148

== ENCOUNTER 2025-02-06 15:06 | Outpatient (CLI) | payer BC, MEDICAID, SELFPAY ==
[2024-11-15 10:42] VITALS: BP 195/124; BMI 47.5
== END 2025-02-06 15:07 | disposition home or self-care (01) ==
LOC: SLEEP 15:07
PROVIDERS: PCP Family Medicine; Visit Provider Family Medicine
DX: G47.33 Obstructive sleep apnea (adult) (pediatric) (principal)
CPT/HCPCS: G0399

== ENCOUNTER → 2025-04-02 14:25 | Outpatient (BNVA) | payer OTHER, SELFPAY ==
[2025-03-06 13:26] VITALS: BP 195/124; BMI 47.5
== END ==
PROVIDERS: PCP Family Medicine; Visit Provider Family Medicine
DX: E11.9 Type 2 diabetes mellitus without complications (principal)
CPT/HCPCS: 80053; 83036; 84439; 84443; 85025

== ENCOUNTER 2025-05-22 16:33 | Emergency (ER) | payer BC, MEDICAID, SELFPAY ==
[2025-03-06 13:26] VITALS: BP 195/124; BMI 47.5
[2025-05-22 16:47] VITALS: BP 164/115; PULSE 102; RESP 24; TEMP 36.8; O2SAT 97
--- NOTE | 2025-05-22 16:55 | XRR_ITS ---
PROCEDURE INFORMATION: Exam: XR Chest Exam date and time: 05/22/2025 5:00 PM Age: 39 years old Clinical indication: Cough and dyspnea; Additional info: Dyspnea/cough TECHNIQUE: Imaging protocol: Radiologic exam of the chest. Views: 1 view. COMPARISON: CR XR chest 1V portable [id number] 11/18/2024 4:21 PM FINDINGS: Lungs: Unremarkable. No consolidation. Pleural spaces: Unremarkable. No pleural effusion. No pneumothorax. Heart/Mediastinum: Unremarkable. No cardiomegaly. Bones/joints: Unremarkable. XR/XR chest 1V portable [id number] IMPRESSION: No acute findings.
--- NOTE | 2025-05-22 17:03 | ED_ITS ---
HPI - General Adult 2 General: Chief complaint: General Medical Stated complaint: L&R leg and feet swelling Time Seen by Provider: 05/22/25 16:51 History of Present Illness: 39-year-old male presents to the emergen cy room clinic with bilateral leg pain and swelling. He has had intermittent cramping in his lower extremities. He was recently started on Bactrim. He has noticed decreased urinary output. He has not had any vomiting or diarrhea denies chest pain no shortness of breath. Associated symptoms: Deny chest pain, dyspnea or rash Related Data Previous Rx's ?Medication ?Instructions ?Recorded CPAP 6-16 cm mmHg setting with #1 ea 02/15/25 mask, tubing and supplies amlodipine 10 mg tablet 10 mg PO DAILY #90 tabs 0504/22 losartan 100 mg tablet 100 mg PO DAILY #90 tabs 04/22 furosemide 20 mg tablet (Lasix) 20 mg PO DAILY #3 tabs 05/22/25 hydroxyzine HCl 50 mg tablet 50 mg PO TID PRN anxiety #90 tabs 05/25/25 paliperidone 6 mg tablet,extended 6 mg PO .daily PRN b reak thru 05/25/25 release 24 hr (Invega) psychosis #30 tabs paliperidone palmitate 117 mg/0.75 117 mg (0.75 mL) IM Q30D #0.75 mL 05/25/25 mL intramuscular syringe (Invega Sustenna) paliperidone palmitate 156 mg/mL 156 mg IM ONCE #1 mL 05/25/25 intramuscular syringe (Invega Sustenna) Allergies Allergy/AdvReac Type Severity Reaction Status Date / Time gluten Allergy Severe ADR-Diarrhe Verified 05/25/25 09:58 a Milk Containing Products Allergy Mild ADR-Diarrhe Verified 05/25/25 09:58 (Dairy) a Alpha-Gal Allergy ADR-Gastrointestinal Verified 05/25/25 09:58 (Aduztwmlt-Zhawa-5,3-Gala Upset amoxicillin Allergy ALGY-Hives Verified 05/25/25 09:58 olanzapine (From Zyprexa) Allergy ADR-Agitate Verified 05/25/25 09:58 d Opioids - Morphine Analogues Allergy Unknown Verified 05/25/25 09:58 soy Allergy ADR-Diarrhe Verified 05/25/25 09:58 a Review of Systems 2 Const: Denies: fever(s) or chills Card: Denies: chest pain Resp: Denies: dyspnea GI: Denies: abdominal pain : Denies: dysuria, urinary frequency or urinary urgency Musc: Reports: extremity pain and extremity swelling; Denies: neck pain or back pain Skin/Breast: Denies: rash PFSH ED 2 PFSH: Medical History (Updated 05/30/25 @ 00:00 by VALERIE Perez) Nicotine dependence due to vaping tobacco product Athlete's foot on left Alpha-gal syndrome Cannabis dependence, episodic use History of substance use disorder last use of opiates reported in 2018 History of methamphetamine use Allergy to alpha-gal Schizoaffective disorder, depressive type HTN (hypertension) Chronic post-traumatic stress disorder Clinical diagnosis of COVID-19 Surgical History S/P knee surgery No pertinent past surgical history Family History Other Diabetes Family history of premature coronary artery disease Psychiatric illness Social History Smoking and tobacco/nicotine status: never used tobacco/nicotine Quit status (tobacco/nicotine): considering quitting Second hand smoke exposure: Yes Alcohol intake: former Former alcohol use details: or 2020 Substance/Drug Use: current Substance/Drug use frequency: few times a month Other substance/drug use details: only when available Adopted: No Caregiver/support person: No Lives independently: Yes Household members: other Details: [facility] with 8 other people Housing: House Marital status: Legally Number of children: 2 Number of grandchildren: 0 Highest education level completed: Some College, No Degree service: No Current occupational status: employed Current occupation: [employer] in [place] Current occupational exposures/hazards: No Pets and animals: Yes Pets & animals: gerbil(s) Leisure activites: music and other Leisure activities details: social media Sexually active: No Do you think of yourself as: Straight/Heterosexual Current gender identity: Male Stephany/Samaritan: Congregational Special stephany needs: No Agree to transfusion: Yes Physical Exam 2 Const: GENERAL APPEARANCE: cooperative ORIENTATION/CONSCIOUSNESS: Yes awake, Yes oriented to person, Yes oriented to place and Yes oriented to time HENMT: COMMON NORMALS: normocephalic, atraumatic and hearing grossly normal bilaterally HEAD & SCALP: normocephalic and atraumatic Resp: COMMON NORMALS: normal respiratory effort, No retractions, No use of accessory muscles and clear to auscultation bilaterally AUSCULTATION: clear to auscultation bilaterally Cardio: COMMON NORMALS: regular rate, regular rhythm and No murmurs present (Cardio) RATE: regular rate RHYTHM: regular rhythm GI: COMMON NORMALS: Soft to palpation and No hepatosplenomegaly present A USCULTATION: Yes normoactive bowel sounds PALPATION: Yes Soft to palpation, No Tenderness to palpation present (GI), No Guarding due to palpation present (GI) and Yes No hepatosplenomegaly present Extremity: COMMON NORMALS: normal to inspection, capillary refill normal and no calf tenderness OTHER: 2+ edema lower extremities to the level of the lower third of the lower leg Neuro: SENSORIUM/ORIENTATION: Yes oriented to person, Yes oriented to place and Yes oriented to time Skin: COMMON NORMALS: no rashes or lesions noted GENERAL SKIN EXAM: no rashes or lesions noted Course 2 Vital Signs: Vital signs: Vital Signs Temperature 98.2 F 05/22/25 16:47 Pulse Rate 95 05/22/25 18:14 Respiratory Rate 24 H 05/22/25 16:47 Blood Pressure 136/100 05/22/25 18:14 Pulse Oximetry 94 05/22/25 18:14 Oxygen Delivery Me thod Room Air 05/22/25 17:43 [facility] - General Adult Medical Decision Making Labs and imaging reviewed no significant finding. Chest x-ray unremarkable. Negative Homans' sign. Will start on Lasix 20 mg daily for next 3 days and follow-up with primary care. Medical Records I reviewed the patient's medical records. Lab Data I reviewed the patient's lab results. 05/22/25 17:03 05/22/25 17:03 Radiology Impressions Chest X-Ray 05/22/25 16:55 IMPRESSION: No acute findings. Laboratory Results WBC 9.35 10^3/uL (3.29-11.43) 05/22/25 17:03 RBC 4.42 10^6/uL (3.85-5.65) 05/22/25 17:03 Hgb 12.90 g/dL (11.27-16.99) 05/22/25 17:03 Hct 38.2 % (37-53) 05/22/25 17:03 MCV 86.4 fl (82-101) 05/22/25 17:03 MCH 29.2 pg (27-33) 05/22/25 17:03 MCHC 33.8 g/dL (30-55) 05/22/25 17:03 RDW 13.1 % (12.1-15.1) 05/22/25 17:03 Plt Count 207 10^3/cmm (157-399) 05/22/25 17:03 MPV 8.8 fL (7.4-10.4) 05/22/25 17:03 Neut % (Auto) 51.7 % 05/22/25 17:03 Lymph % (Auto) 36.6 % 05/22/25 17:03 [place] % (Auto) 6.6 % 05/22/25 17:03 Eos % (Auto) 4.2 % 05/22/25 17:03 Baso % (Auto) 0.6 % 05/22/25 17:03 Neut # (Auto) 4.83 10^3/uL (1.8-7.7) 05/22/25 17:03 Lymph # (Auto) 3.4 10^3/uL (0.8-4.8) 05/22/25 17:03 [place] # (Auto) 0.6 10^3/uL (0.2-0.9) 05/22/25 17:03 Eos # (Auto) 0.4 10^3/uL (0.0-0.8) 05/22/25 17:03 Baso # (Auto) 0.1 10^3/uL (0.0-0.1) 05/22/25 17:03 Nucleated RBC % (auto) 0 % 05/22/25 17:03 Nucleated RBCs # 0.0 /100WBC 05/22/25 17:03 Sodium 138 mmol/L (136-145) 05/22/25 17:03 Potassium 3.6 mmol/L (3.5-5.1) 05/22/25 17:03 Chloride 105 mmol/L (98-107) 05/22/25 17:03 Carbon Dioxide 21 mmol/L (22-29) L 05/22/25 17:03 Anion Gap 15.6 (5-19) 05/22/25 17:03 BUN 12 mg/dL (6-20) 05/22/25 17:03 Creatinine 0.8 mg/dL (0.7-1.2) 05/22/25 17:03 GFR Calculation 107.1 mL/min (90-130) 05/22/25 17:03 Glucose 128 mg/dL (65-115) H 05/22/25 17:03 Calculated Osmolality 287 mOsm/kg (285-295) 05/22/25 17:03 Calcium 8.8 mg/dL (8.5-10.5) 05/22/25 17:03 Total Bilirubin 0.2 mg/dL (0.15-1.2) 05/22/25 17:03 AST 44 U/L (0-40) H 05/22/25 17:03 ALT 63 U/L (0-41) H 05/22/25 17:03 Alkaline Phosphatase 77 U/L (40-130) 05/22/25 17:03 NT-Pro-B Natriuret Pep < 36 pg/mL (0-125) 05/22/25 17:03 Total Protein 7.0 g/dL (6.6-8.7) 05/22/25 17:03 Albumin 4.0 g/dL (3.5-5.2) 05/22/25 17:03 Globulin 3.0 g/dL (1.3-4.6) 05/22/25 17:03 All radiology interpretation(s) finalized by discharge Discharge Plan Discharge Patient Disposition: Home Clinical Impression: Leg edema HTN (hypertension) Qualifiers: Hypertension type: primary hypertension Qualified Code(s): I10 - Essential (primary) hypertension Condition: Stable Prescriptions: New furosemide [Lasix] 20 mg tablet 20 mg PO DAILY Qty: 3 0RF No Action amlodipine 10 mg tablet 10 mg PO DAILY Qty: 90 1RF losartan 100 mg tablet 100 mg PO DAILY Qty: 90 3RF paliperidone [Invega] 6 mg tablet extended release 24hr 6 mg PO .daily PRN (Reason: break thru psychosis) Qty: 30 3RF Rx Instructions: May take one tablet daily as needed for break thru psychosis Invega Sustenna 117 mg/0.75 mL syringe 117 mg IM Q30D Qty: 0.75 6RF Rx Instructions: Injection every 30 days, due on 05/31/25 Invega Sustenna 156 mg/mL syringe 156 mg IM ONCE Qty: 1 0RF Rx Instructions: Loading dose injection for today, 05/25/25 hydroxyzine HCl 50 mg tablet 50 mg PO TID PRN (Reason: anxiety) Qty: 90 3RF Rx Instructions: May take one tablet three times per day as needed for anxiety (DME) CPAP 6-16 cm mmHg setting with mask, tubing and supplies See Rx Instructions .ROUTE .MEDSUPPLY Qty: 1 0RF Rx Instructions: As directed Discharge Orders: Discharge ED (Routine); Ordered 05/22/25 Ordered By: Americo Sheikh Referrals: Willy Pickens MD [Primary Care Provider, Family Practice] Discharge Diet: Low Salt Discharge Activity: Increase activity as tolerated Patient Instructions: Opioid Safety, Pain Management, Patient Portal & Teri Instructions Activity Restrictions/Additional Instructions: Thank you for choosing [facility] for your healthcare needs today. It is very important that you follow up as instructed or that you return to the Emergency Department should you have concerns or if your condition changes or worsens in any way. You were seen in the emergency room including swelling in your legs no signs of dehydration your liver function is normal. Recommend Lasix 20 mg once daily for the next 3 days follow-up with your primary care doctor if not improving Print Language: Sami Coding Level of Care Code ED Manager Personnel Selection for Aby Dixon
[2025-05-22 17:07] LABS: Basophils # 0.1 10^3/uL (0.0-0.1); Basophils % 0.6 %; Eosinophils # 0.4 10^3/uL (0.0-0.8); Eosinophils % 4.2 %; Hematocrit 38.2 % (37-53); Lymphocytes # 3.4 10^3/uL (0.8-4.8); Lymphocytes % 36.6 %; Mean Corpuscular HGB Conc 33.8 g/dL (30-55); Mean Corpuscular Hemoglobin 29.2 pg (27-33); Mean Corpuscular Volume 86.4 fl (82-101); Mean Platelet Volume 8.8 fL (7.4-10.4); Monocytes # 0.6 10^3/uL (0.2-0.9); Monocytes % 6.6 %; Neutrophils # 4.83 10^3/uL (1.8-7.7); Neutrophils % 51.7 %; Nucleated Red Blood Cells % 0 %; Platelet Count 207 10^3/cmm (157-399); Red Blood Count 4.42 10^6/uL (3.85-5.65); Red Cell Distribution Width 13.1 % (12.1-15.1); White Blood Count 9.35 10^3/uL (3.29-11.43)
[2025-05-22 17:40] LABS: Alanine Aminotransferase 63 U/L (0-41); Alkaline Phosphatase 77 U/L (40-130); Anion Gap 15.6 (5-19); Aspartate Amino Transferase 44 U/L (0-40); Blood Urea Nitrogen 12 mg/dL (6-20); Calcium 8.8 mg/dL (8.5-10.5); Carbon Dioxide 21 mmol/L (22-29); Chloride 105 mmol/L (98-107); Glomerular Filtration Rate 107.1 mL/min (90-130); Glucose 128 mg/dL (65-115); NT Pro B Type Natriuretic Pept < 36 pg/mL (0-125); Osmolality Calculated 287 mOsm/kg (285-295); Potassium 3.6 mmol/L (3.5-5.1); Sodium 138 mmol/L (136-145); Total Bilirubin 0.2 mg/dL (0.15-1.2)
[2025-05-22 17:43] VITALS: BP 143/96; PULSE 103; O2SAT 97
--- OUTSIDE RECORDS SUMMARY | 2025-05-22 17:58 | XMS_ITS | Clinical Summary ---
Author Organization [facility] Address [address] Attn: [place] [address] Care Team Providers Care Layaway Clerk Name Role Phone Unavailable Primary Care Provider Unavailabl e Allergies Active Allergy Reactions Criticality Noted Date Comments Amoxicillin Nausea and Vomiting Low 08/06/2010 Medications DULoxetine (CYMBALTA) 30 mg Capsule, Delayed Release(E.C.) Take 30 mg by mouth daily. Active cloNIDine HCL (CATAPRES) 0.2 mg tablet Take 0.2 mg by mouth 2 times daily as needed for Blood Pressure. 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 Gender Identity Not on file Sexual Orientation Not on file Last Filed Vital Signs Vital Sign Reading Time Taken Comments Blood Pressure 154/96 07/20/2022 6:00 PM CDT Pulse 109 07/20/2022 6:00 PM CDT Temperature 37 C (98.6 F) 07/20/2022 5:04 PM CDT Respiratory Rate 21 07/20/2022 6:00 PM CDT Oxygen Saturation 94% 07/20/2022 6:00 PM CDT Inhaled Oxygen Concentration - - Weight 165.6 kg (365 lb) 07/20/2022 5:04 PM CDT Height 190.5 cm (6' 3 ) 07/20/2022 5:04 PM CDT Body Mass Index 45.62 07/20/2022 5:04 PM CDT Plan of Treatment Health Maintenance Due Date Last Done Comments DTAP/TDAP/TD VACCINES (1 - Tdap) 2003 HEPATITIS B VACCINES (1 of 3 - 19+ 3-dose series) 2003 INFLUENZA VACCINE (#1) 2024 HPV VACCINES Aged Out No longer eligi ble based on patient's age to complete this topic Insurance [facility] MEDICAID
[2025-05-22 18:14] VITALS: BP 136/100; PULSE 95; O2SAT 94
== END 2025-05-22 18:15 | disposition home or self-care (01) ==
PROVIDERS: Emergency Medicine; Emergency Provider Family Medicine; PCP Family Medicine
DX: R60.0 Localized edema (principal); I10 Essential (primary) hypertension
CPT/HCPCS: 36415; 71045; 80053; 83880; 85025; 99284

== ENCOUNTER 2025-06-04 20:10 | Emergency (ER) | payer BC, MEDICAID, SELFPAY ==
[2025-03-06 13:26] VITALS: BP 195/124; BMI 47.5
[2025-06-04 20:14] VITALS: BP 163/94; PULSE 111; TEMP 37.1; O2SAT 97
--- OUTSIDE RECORDS SUMMARY | 2025-06-04 20:21 | XMS_ITS | Clinical Summary ---
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
--- NOTE | 2025-06-04 20:44 | W.ED.EXTPRO ---
HPI - Extremity Problem General: Chief complaint: Extremity Problem,Nontraumatic Stated complaint: Swollen L Knee painful Time Seen by Provider: 06/04/25 20:21 Source: patient Mode of arrival: ambulatory Limitations: no limitations History of Present Illness: 39yo male here with left knee pain. Patient reports the pain started when he was getting out of the vehicle today while bringing his dad to the doctor. States he stepped out of the vehicle and had immediate pain. Reports that he now has increased pain to the top of the knee with movement and with weightbearing. He denies any fall, trauma, known injury. Associated symptoms: Deny fever(s) Related Data Previous Rx's ?Medication ?Instructions ?Recorded CPAP 6-16 cm mmHg setting with #1 ea 02/15/25 mask, tubing and supplies amlodipine 10 mg tablet 10 mg PO DAILY #90 tabs 04/02/25 losartan 100 mg tablet 100 mg PO DAILY #90 tabs 04/02/25 hydroxyzine HCl 50 mg tablet 50 mg PO TID PRN anxiety #90 tabs 05/25/25 paliperidone 6 mg tablet,extended 6 mg PO .daily PRN break thru 05/25/25 release 24 hr (Invega) psychosis #30 tabs paliperidone palmitate 117 mg/0.75 117 mg (0.75 mL) IM Q30D #0.75 mL 05/25/25 mL intramuscular syringe (Invega Sustenna) furosemide 20 mg tablet (Lasix) 20 mg PO QAM #60 tabs 06/04/25 ketorolac 10 mg tablet 10 mg PO Q6H PRN pain 5 days #20 06/04/25 tabs potassium chloride 10 mEq 10 meq PO DAILY #60 tabs 06/04/25 tablet,extended release (Klor-Con) Allergies Allergy/AdvReac Type Severity Reaction Status Date / Time gluten Allergy Severe ADR-Diarrhe Verified 06/04/25 20:19 a Milk Containing Products Allergy Mild ADR-Diarrhe Verified 06/04/25 20:19 (Dairy) a Alpha-Gal Allergy ADR-Gastrointestinal Verified 06/04/25 20:19 (Zmrmrlelv-Ntmms-0,3-Gala Upset amoxicillin Allergy ALGY-Hives Verified 06/04/25 20:19 olanzapine (From Zyprexa) Allergy ADR-Agitate Verified 06/04/25 20:19 d Opioids - Morphine Analogues Allergy Unknown Verified 06/04/25 20:19 soy Allergy ADR-Diarrhe Verified 06/04/25 20:19 a Review of Systems Const: Denies: fever(s), chills or body aches Musc: Reports: joint pain (left knee) and joint swelling (left knee) PFS ED PFSH: Medical History (Updated 06/04/25 @ 22:46 by CURT Cee) Pre-diabetes Nicotine dependence due to vaping tobacco product Athlete's foot on left Alpha-gal syndrome Cannabis dependence, episodic use History of substance use disorder last use of opiates reported in 2018 History of methamphetamine use Allergy to alpha-gal Schizoaffective disorder, depressive type HTN (hypertension) Chronic post-traumatic stress disorder Clinical diagnosis of COVID-19 Surgical History S/P knee surgery No pertinent past surgical history Family History Other Diabetes Family history of premature coronary artery disease Psychiatric illness Social History Smoking and tobacco/nicotine status: never used tobacco/nicotine Quit status (tobacco/nicotine): considering quitting Second hand smoke exposure: Yes Alcohol intake: former Former alcohol use details: or 2020 Substance/Drug Use: current Substance/Drug use frequency: few times a month Other substance/drug use details: only when available Adopted: No Caregiver/support person: No Lives independently: Yes Household members: other Details: [facility] House with 8 other people Housing: House Marital status: Legally Number of children: 2 Number of grandchildren: 0 Highest education level completed: Some College, No Degree service: No Current occupational status: employed Current occupation: [employer] in [place] Current occupational exposures/hazards: No Pets and animals: Yes Pets & animals: gerbil(s) Leisure activites: music and other Leisure activities details: social media Sexually active: No Do you think of yourself as: Straight/Heterosexual Current gender identity: Male Stephany/Mormon: Church Special stephany needs: No Agree to transfusion: Yes Physical Exam Const: COMMON NORMALS: no acute distress, patient oriented x3 and alert GENERAL APPEARANCE: cooperative ORIENTATION/CONSCIOUSNESS: Yes awake OTHER: Patient is ambulatory to the exam room unassisted. He is sitting upright on the stretcher no acute distress. He is able to give history with no difficulty. He is interactive with exam appropriately. No family is at bedside at time of exam HENMT: COMMON NORMALS: normocephalic and atraumatic HEAD & SCALP: normocephalic and atraumatic Chest: CHEST: Yes Symmetrical chest wall rise Resp: COMMON NORMALS: normal respiratory effort EFFORT & INSPECTION: Yes able to speak in complete sentences Extremity: LEFT LOWER EXTREMITY: Yes knee joint Left knee: Yes palpation (Tenderness to palpation superior knee) and Yes ROM (Decreased flexion) Neuro: COMMON NORMALS: patient oriented x3 SENSORIUM/ORIENTATION: Yes alert Course Vital Signs: Vital signs: Vital Signs Temperature 98.7 F 06/04/25 20:14 Pulse Rate 111 H 06/04/25 20:14 Blood Pressure 163/94 06/04/25 20:14 Pulse Oximetry 97 06/04/25 20:14 Oxygen Delivery Me thod Room Air 06/04/25 20:14 MDM - Extremity (Nontraumatic) Medical Decision Making 39yo male here with left knee pain. Patient reports the pain started when he was getting out of the vehicle today while bringing his dad to the doctor. States he stepped out of the vehicle and had immediate pain. Reports that he now has increased pain to the top of the knee with movement and with weightbearing. He denies any fall, trauma, known injury. Patient is nontoxic in appearance. Vital signs are stable. No fracture or acute bony abnormality noted on the x-ray. Discussed findings with patient. Elastic wrap applied to help support the knee and provide compression. Ketorolac provided in the emergency department and prescription sent to patient's pharmacy to help with the pain and swelling. Discussed use of cool compress as well as elevation to help with the pain and swelling. Advised range of motion exercises at least twice daily. Recommend follow-up with primary care, call in 2 to 3 days with an update of symptoms and to discuss a recheck. Return precautions provided. Patient states understanding and has no further questions or concerns at this time. Medical Records I reviewed the patient's medical records. Lab Data Radiology Impressions Knee X-Ray 06/04/25 20:48 IMPRESSION: No acute findings. All radiology interpretation(s) finalized by discharge Discharge Plan Discharge Patient Disposition: Home Clinical Impression: Pain and swelling of left knee Condition: Stable Prescriptions: New ketorolac 10 mg tablet 10 mg PO Q6H PRN (Reason: pain) 5 Days Qty: 20 0RF No Action amlodipine 10 mg tablet 10 mg PO DAILY Qty: 90 1RF losartan 100 mg tablet 100 mg PO DAILY Qty: 90 3RF potassium chloride [Klor-Con 10] 10 mEq tablet extended release 10 meq PO DAILY Qty: 60 1RF furosemide [Lasix] 20 mg tablet 20 mg PO QAM Qty: 60 1RF paliperidone [Invega] 6 mg tablet extended release 24hr 6 mg PO .daily PRN (Reason: break thru psychosis) Qty: 30 3RF Rx Instructions: May take one tablet daily as needed for break thru psychosis Invega Sustenna 117 mg/0.75 mL syringe 117 mg IM Q30D Qty: 0.75 6RF Rx Instructions: Injection every 30 days, due on 05/31/25 hydroxyzine HCl 50 mg tablet 50 mg PO TID PRN (Reason: anxiety) Qty: 90 3RF Rx Instructions: May take one tablet three times per day as needed for anxiety (DME) CPAP 6-16 cm mmHg setting with mask, tubing and supplies See Rx Instructions .ROUTE .MEDSUPPLY Qty: 1 0RF Rx Instructions: As directed Discharge Orders: Discharge ED (Routine); Ordered 06/04/25 Ordered By: Ashok Ruvalcaba Referrals: Willy Pickens MD [Primary Care Provider, [facility]] Discharge Diet: Usual diet Discharge Activity: Increase activity as tolerated Patient Instructions: Knee Pain (ED), Pain Management, Patient Portal & Teri Instructions Activity Restrictions/Additional Instructions: No acute bony abnormalities were noted on the x-ray today Elastic wrap has been applied to help with the swelling and to support the knee Application of a cool compress for 10 to 15 minutes at a time as well as elevation will help with the pain and swelling as well You received ketorolac while in the emergency department to help with the throbbing pain and swelling. A prescription has been sent to your pharmacy as well. Please do not take ibuprofen or naproxen while taking this medication Follow-up with primary care, call in 2 to 3 days with an update of symptoms and to discuss a recheck Return to the emergency department if any rapid worsening symptoms, further injury, and as needed Print Language: Salvadorean Coding Level of Care Code ED Sheet Taker for Aby Dixon
--- NOTE | 2025-06-04 20:48 | XRR_ITS ---
PROCEDURE INFORMATION: Exam: XR Left Knee Exam date and time: 06/04/2025 9:04 PM Age: 39 years old Clinical indication: Pain; Knee; Left; Additional info: Pain, swelling TECHNIQUE: Imaging protocol: Radiologic exam of the left knee. Views: 3 views. COMPARISON: CR XR ankle LT min 3V* [id number] 02/16/2021 4:51 PM FINDINGS: Bones/joints: Normal. Soft tissues: Normal. XR/XR knee LT 3V* [id number] IMPRESSION: No acute findings.
[2025-06-04 23:16] VITALS: BP 172/108; PULSE 92; RESP 16; O2SAT 96
== END 2025-06-04 23:18 | disposition home or self-care (01) ==
PROVIDERS: Emergency Provider Nurse Practitioner; PCP Family Medicine
DX: R60.0 Localized edema (principal); I10 Essential (primary) hypertension; M25.562 Pain in left knee
CPT/HCPCS: 73562; 96372; 99284; J1885

== ENCOUNTER 2025-06-08 14:51 | Emergency (ER) | payer BC, MEDICAID, SELFPAY ==
[2025-03-06 13:26] VITALS: BP 195/124; BMI 47.5
--- OUTSIDE RECORDS SUMMARY | 2025-06-08 14:54 | XMS_ITS | Clinical Summary ---
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 PLAN MEDICAID
[2025-06-08 14:59] VITALS: BP 132/91; PULSE 91; RESP 16; TEMP 36.7; O2SAT 96; BMI 47.0
--- NOTE | 2025-06-08 16:32 | XRR_ITS ---
PROCEDURE INFORMATION: Exam: XR Left Knee Exam date and time: 06/08/2025 4:54 PM Age: 39 years old Clinical indication: Pain; Knee; Left TECHNIQUE: Imaging protocol: Radiologic exam of the left knee. Views: 3 views. COMPARISON: CR (LOW EXM, ) 06/04/2025 9:04 PM FINDINGS: Bones/joints: Normal. Soft tissues: Normal. XR/XR knee LT 3V* [id number] IMPRESSION: No acute findings.
--- NOTE | 2025-06-08 16:46 | W.ED.EXTPRO ---
HPI - Extremity Problem General: Chief complaint: Extremity Problem,Nontraumatic Stated complaint: left knee swelling/pain Time Seen by Provider: 06/08/25 16:09 History of Present Illness: Patient is 39-year-old male history of hypertension, reported to ED with worsening left knee pain. Patient is unsure if he has had an injury, however was here on Wednesday, 5 days ago, followed up at primary care, and has ongoing pain, that he thinks is worse. He came back to the emergency room with difficulty with ambulation. He has utilized ice, elevation, and wrapping his knee. He did have an x-ray on Wednesday that showed no acute changes with wide joint space. Associated symptoms: Deny chest pain, fever(s) or rash Related Data Previous Rx's ?Medication ?Instructions ?Recorded CPAP 6-16 cm mmHg setting with #1 ea 02/15/25 mask, tubing and supplies amlodipine 10 mg tablet 10 mg PO DAILY #90 tabs 04/02/25 losartan 100 mg tablet 100 mg PO DAILY #90 tabs 04/02/25 hydroxyzine HCl 50 mg tablet 50 mg PO TID PRN anxiety #90 tabs 05/25/25 paliperidone 6 mg tablet,extended 6 mg PO .daily PRN break thru 05/25/25 release 24 hr (Invega) psychosis #30 tabs paliperidone palmitate 117 mg/0.75 117 mg (0.75 mL) IM Q30D #0.75 mL 05/25/25 mL intramuscular syringe (Invega Sustenna) furosemide 20 mg tablet (Lasix) 20 mg PO QAM #60 tabs 06/04/25 ketorolac 10 mg tablet 10 mg PO Q6H PRN pain 5 days #20 06/04/25 tabs potassium chloride 10 mEq 10 meq PO DAILY #60 tabs 06/04/25 tablet,extended release (Klor-Con) Allergies Allergy/AdvReac Type Severity Reaction Status Date / Time gluten Allergy Severe ADR-Diarrhe Verified 06/07/25 11:12 a Milk Containing Products Allergy Mild ADR-Diarrhe Verified 06/07/25 11:12 (Dairy) a Alpha-Gal Allergy ADR-Gastrointestinal Verified 06/07/25 11:12 ([id number]-1,3-Gala Upset amoxicillin Allergy ALGY-Hives Verified 06/07/25 11:12 olanzapine (From Zyprexa) Allergy ADR-Agitate Verified 06/07/25 11:12 d Opioids - Morphine Analogues Allergy Unknown Verified 06/07/25 11:12 soy Allergy ADR-Diarrhe Verified 06/07/25 11:12 a Review of Systems Const: Denies: fever(s) or chills ENMT: Denies: throat pain or dry mouth Card: Denies: chest pain or palpitations Resp: Denies: dyspnea or productive cough GI: Denies: abdominal pain, nausea or vomiting : Denies: flank pain or difficulty urinating Musc: Reports: extremity pain, extremity swelling and joint pain; Denies: neck pain or back pain Skin/Breast: Denies: rash or pruritus Neuro: Denies: headache(s) or numbness in extremities Psych: Denies: anxiety or depression PFSH ED PFSH: Medical History (Updated 06/08/25 @ 18:07 by MARIO Millard) Pre-diabetes Nicotine dependence due to vaping tobacco product Athlete's foot on left Alpha-gal syndrome Cannabis dependence, episodic use History of substance use disorder last use of opiates reported in 2018 History of methamphetamine use Allergy to alpha-gal Schizoaffective disorder, depressive type HTN (hypertension) Chronic post-traumatic stress disorder Clinical diagnosis of COVID-19 Surgical History S/P knee surgery No pertinent past surgical history Family History Other Diabetes Family history of premature coronary artery disease Psychiatric illness Social History Smoking and tobacco/nicotine status: never used tobacco/nicotine Quit status (tobacco/nicotine): considering quitting Second hand smoke exposure: Yes Alcohol intake: former Former alcohol use details: or 2020 Substance/Drug Use: current Substance/Drug use frequency: few times a month Other substance/drug use details: only when available Adopted: No Caregiver/support person: No Lives independently: Yes Household members: other Details: [facility] House with 8 other people Housing: House Marital status: Legally Number of children: 2 Number of grandchildren: 0 Highest education level completed: Some College, No Degree service: No Current occupational status: employed Current occupation: [employer] in [place] Current occupational exposures/hazards: No Pets and animals: Yes Pets & animals: gerbil(s) Leisure activites: music and other Leisure activities details: social media Sexually active: No Do you think of yourself as: Straight/Heterosexual Current gender identity: Male Stephany/Evangelical: Shinto Special stephany needs: No Agree to transfusion: Yes Physical Exam Const: COMMON NORMALS: no acute distress, average body habitus and patient oriented x3 HENMT: COMMON NORMALS: normocephalic and atraumatic HEAD & SCALP: normocephalic and atraumatic Neck/C-Spine: COMMON NORMALS: full ROM, no lymphadenopathy and no JVD Lymph: LYMPHATIC: no lymphadenopathy noted Resp: COMMON NORMALS: normal respiratory effort and clear to auscultation bilaterally EFFORT & INSPECTION: Yes able to speak in complete sentences and Yes symmetric chest movement AUSCULTATION: clear to auscultation bilaterally Cardio: COMMON NORMALS: no JVD, regular rate and regular rhythm RATE: regular rate RHYTHM: regular rhythm GI: COMMON NORMALS: Normal to inspection, nondistended, normoactive bowel sounds present and Soft to palpation PALPATION: Yes Soft to palpation : COMMON NORMALS: Yes no CVA tenderness BLADDER/KIDNEY EXAM: Yes no CVA tenderness Back/Pelvis: COMMON NORMALS: no CVA tenderness Extremity: COMMON NORMALS: normal to inspection and full ROM Neuro: COMMON NORMALS: patient oriented x3 Course Vital Signs: Vital signs: Vital Signs Temperature 98.0 F 06/08/25 14:59 Pulse Rate 79 06/08/25 18:24 Respiratory Rate 18 06/08/25 18:24 Blood Pressure 146/77 06/08/25 18:24 Pulse Oximetry 97 06/08/25 18:24 Oxygen Delivery Me thod Room Air 06/08/25 14:59 MDM - Extremity (Nontraumatic) Medical Decision Making Patient is a 39-year-old male with left knee pain after getting out of his car 7 days ago. He was evaluated on Wednesday, 5 days ago, with x-ray, no acute injury/fracture was noted. Today, this x-ray was compared to Wednesday's x-ray and no calcifications or occult fracture was seen. This is most likely soft tissue, sounds like a meniscal injury with exam not indicating valgus/varus injury, drawer signs negative. Knee is giving out with further information as well. Suspect patient will need further information such as MRI. He will obtain this from his primary and has discussed this with his primary on his initial follow-up this week. All of his questions answered to his satisfaction. He did request Toradol/Norflex prior to being discharged Medical Records I reviewed the patient's medical records. Lab Data Radiology Impressions Knee X-Ray 06/08/25 16:32 IMPRESSION: No acute findings. All radiology interpretation(s) finalized by discharge ED provider radiology interpretation(s): no acute (bone spur noted) Discharge Plan Discharge Patient Disposition: Home Clinical Impression: Acute pain of left knee Condition: Stable Prescriptions: No Action amlodipine 10 mg tablet 10 mg PO DAILY Qty: 90 1RF losartan 100 mg tablet 100 mg PO DAILY Qty: 90 3RF potassium chloride [Klor-Con 10] 10 mEq tablet extended release 10 meq PO DAILY Qty: 60 1RF furosemide [Lasix] 20 mg tablet 20 mg PO QAM Qty: 60 1RF paliperidone [Invega] 6 mg tablet extended release 24hr 6 mg PO .daily PRN (Reason: break thru psychosis) Qty: 30 3RF Rx Instructions: May take one tablet daily as needed for break thru psychosis Invega Sustenna 117 mg/0.75 mL syringe 117 mg IM Q30D Qty: 0.75 6RF Rx Instructions: Injection every 30 days, due on 05/31/25 hydroxyzine HCl 50 mg tablet 50 mg PO TID PRN (Reason: anxiety) Qty: 90 3RF Rx Instructions: May take one tablet three times per day as needed for anxiety (DME) CPAP 6-16 cm mmHg setting with mask, tubing and supplies See Rx Instructions .ROUTE .MEDSUPPLY Qty: 1 0RF Rx Instructions: As directed ketorolac 10 mg tablet 10 mg PO Q6H PRN (Reason: pain) 5 Days Qty: 20 0RF Discharge Orders: Discharge ED (Routine); Ordered 06/08/25 Ordered By: Alisha Quintero Referrals: Willy Pickens MD [Primary Care Provider, Family Practice] Discharge Diet: Usual diet Discharge Activity: Limit activity as instructed Patient Instructions: P.R.I.C.E. Treatment (ED), Patient Portal & Teri Instructions Activity Restrictions/Additional Instructions: As we discussed, wrap the knee, ice, elevate. Call on Wednesday to return to your primary care physician next week if you do not already have an appointment Return to ED with worsening pain, redness, or fever greater than 100.4 ?F. Given Print Language: Mauritian Coding Level of Care Code ED Damage Appraiser for Aby Dixon
[2025-06-08 18:24] VITALS: BP 146/77; PULSE 79; RESP 18; O2SAT 97
[2025-06-08] MEDS: orphenadrine 30 mg/mL Inj 2 mL 60 MG IM (18:24)
== END 2025-06-08 18:25 | disposition home or self-care (01) ==
PROVIDERS: Emergency Provider Physician Assistant; PCP Family Medicine
DX: M25.562 Pain in left knee (principal); I10 Essential (primary) hypertension
CPT/HCPCS: 73562; 96372; 99284; J1885; J2360